=== PATIENT | female | born 1975 | race African-American/Black ===

== ENCOUNTER 2016-07-08 10:43 | Emergency (ER) | payer MEDICARE, MEDICAID ==
--- NOTE | 2016-07-08 11:13 | ER Document Report ---
ED Medical Screen (RME) - General Stated Complaint: COUGH Time seen by provider: 11:11 Mode of Arrival: Medic Information source: Patient Notes: I have greeted and performed a rapid initial assessment of this patient. A comprehensive ED assessment and evaluation of the patient, analysis of test results and completion of the medical decision making process will be conducted by additional ED providers. TRAVEL OUTSIDE OF THE [place] IN LAST 30 DAYS: No - HPI Patient complains to provider of: COUGH Onset: Yesterday Onset/Duration: Sudden Quality of pain: No pain Severity: None Pain Level: Denies Associated Symptoms: Cough (nonproductive), Rhinorrhea. denies: Fever Exacerbated by: Denies Relieved by: Denies Similar symptoms previously: No Recently seen / treated by doctor: No - Related Data Smoking: Cigarettes Frequency of alcohol use: None Drug Abuse: None Allergies/Adverse Reactions: No Known Allergies Allergy (Verified 07/08/16 11:11) Past Medical History Psychiatric Medical History: Reports: Hx Depression, Hx Schizophrenia - Immunizations Hx Diphtheria, Pertussis, Tetanus Vaccination: Yes
[2016-07-08 11:15] VITALS: BP 94/64
== END 2016-07-08 13:34 | disposition left against medical advice (07) ==
LOC: ER 10:43
DX: R05 Cough (principal); J34.89 Other specified disorders of nose and nasal sinuses; Z53.20 Procedure and treatment not carried out because of patient's decision for unspecified reasons
CPT/HCPCS: 71020; 99281

== ENCOUNTER 2016-09-09 05:08 | Emergency (ER) | payer MEDICARE, MEDICAID ==
[2016-09-09 05:19] VITALS: BP 131/87
--- NOTE | 2016-09-09 07:11 | ER Document Report ---
ED Respiratory Problem - General Chief Complaint: Nonproductive Cough Stated Complaint: COUGH Time seen by provider: 07:06 Mode of Arrival: Ambulatory Information source: Patient Notes: 40-year-old female presents to ED for cough cold congestion sore throat since yesterday. She denies any fever. She denies smoking drinking or alcohol states she sometimes smokes 1 cigarette a day. Has denies any past medical history or any surgery. States she has a family history of heart attacks blood pressure cholesterol no surgeries does not work and lives with her mother. TRAVEL OUTSIDE OF THE [place] IN LAST 30 DAYS: No - HPI Patient complains to provider of: Cough, Other - Sore throat Onset: This morning Duration: Better Initiating Event: URI, Other - Sore throat Quality of pain: Achy Severity: Mild Pain Level: 2 Context: Smoker - Minimal Cough: Nonproductive Sputum amount: None Associated symptoms: Cough, PND, Sinus pain/pressure, Sore Throat Worsened by: coughing Similar symptoms previously: Yes Recently seen / treated by doctor: Yes - Related Data Allergies/Adverse Reactions: No Known Allergies Allergy (Verified 07/08/16 11:11) Past Medical History - General Information source: Patient - Social History Smoking Status: Current Every Day Smoker Cigarette use (# per day): Yes - one cigarette a day Chew tobacco use (# tins/day): No Smoking Education Provided: Yes - less than 1 minute Frequency of alcohol use: None Drug Abuse: None Occupation: none Lives with: Parents Family History: CAD, Hyperlipidemia, Hypertension Patient has suicidal ideation: No Patient has homicidal ideation: No - Past Medical History Cardiac Medical History: Reports: None Pulmonary Medical History: Reports: None EENT Medical History: Reports: None Neurological Medical History: Reports: None Endocrine Medical History: Reports: None Renal/ Medical History: Reports: None. Denies: Hx Peritoneal Dialysis Malignancy Medical History: Reports: None GI Medical History: Reports: None Musculoskeltal Medical History: Reports None Skin Medical History: Reports None Psychiatric Medical History: Reports: Hx Depression, Hx Schizophrenia Traumatic Medical History: Reports: None Infectious Medical History: Reports: None Surgical Hx: Negative Past Surgical History: Reports: None - Immunizations Hx Diphtheria, Pertussis, Tetanus Vaccination: Yes Review of Systems - Review of Systems Constitutional: Fever, Recent illness EENT: Nose discharge, Sinus discharge, Throat pain Cardiovascular: Chest pain - With a cough Respiratory: Cough Gastrointestinal: No symptoms reported Genitourinary: No symptoms reported Female Genitourinary: No symptoms reported Musculoskeletal: No symptoms reported Skin: No symptoms reported Hematologic/Lymphatic: No symptoms reported Neurological/Psychological: No symptoms reported -: Yes All other systems reviewed and negative Physical Exam - Vital signs Vitals: Temp Pulse Resp BP Pulse Ox 98.8 F 94 18 131/87 H 98 09/09/16 05:18 09/09/16 05:18 09/09/16 05:18 09/09/16 05:18 09/09/16 05:18 Interpretation: Hypertensive - General General appearance: Appears well, Alert - HEENT Head: Normocephalic, Atraumatic Eyes: Normal Pupils: PERRL Ears: Normal External canal: Normal Tympanic membrane: Normal Sinus: Normal Nasal: Purulent discharge, Swelling Mouth/Lips: Normal Mucous membranes: Normal Pharynx: Erythema, Exudate, Post nasal drainage, Tonsillar hypertrophy Neck: Anterior cervical chain - Respiratory Respiratory status: No respiratory distress Chest status: Pain with cough Breath sounds: Nonproductive cough Chest palpation: Normal - Cardiovascular Rhythm: Regular Heart sounds: Normal auscultation Murmur: No - Abdominal Inspection: Normal Distension: No distension Bowel sounds: Normal Tenderness: Nontender Organomegaly: No organomegaly - Back Back: Normal, Nontender - Extremities General upper extremity: Normal inspection, Nontender, Normal color, Normal ROM , Normal temperature General lower extremity: Normal inspection, Nontender, Normal color, Normal ROM , Normal temperature, Normal weight bearing. No: Iza's sign - Neurological Neuro grossly intact: Yes Cognition: Normal Orientation: AAOx4 Sebastian Coma Scale Eye Opening: Spontaneous [place] Coma Scale Verbal: Oriented [place] Coma Scale Motor: Obeys Commands Sebastian Coma Scale Total: 15 Speech: Normal Motor strength normal: LUE, RUE, LLE, RLE Sensory: Normal - Psychological Associated symptoms: Normal affect, Normal mood - Skin Skin Temperature: Warm Skin Moisture: Dry Skin Color: Normal Course - Re-evaluation Re-evalutation: 09/09/16 11:38 Will treat patient's strep throat with amoxicillin and have follow-up with primary doctor. - Vital Signs Vital signs: Temp Pulse Resp BP Pulse Ox 98.3 F 92 18 131/87 H 96 09/09/16 08:10 09/09/16 08:10 09/09/16 08:10 09/09/16 05:18 09/09/16 08:10 - Diagnostic Test Radiology reviewed: Image reviewed, Reports reviewed Discharge - Discharge Clinical Impression: Strep throat Condition: Stable Disposition: HOME, SELF-CARE Additional Instructions: STREP THROAT: Your sore throat is due to the streptococcus germ (strep throat). Strep throat usually makes you feel quite ill with fever and aches, headache, swollen sore throat, and tender bumps under the angles of the jaw. Strep throat requires antibiotic treatment. Although the sore throat may go away by itself, complications such as rheumatic fever, kidney disease, or throat abscess can occur. We usually prescribe antibiotics by mouth. Be sure to take the medicine until it's gone. If you stop early, the strep may come back. If you are vomiting, are severely ill, or can't remember to take pills, we can give you an antibiotic shot. Take acetaminophen or ibuprofen for pain and fever. Sip frequent clear liquids, or use popsicles or ice chips. Anesthetic sprays or lozenges may help. Make sure the air in the room is not too dry. Avoid using decongestants or antihistamines. Call the doctor if there is no improvement in three days, or if you have difficulty breathing, increasing throat pain, high fever, rash, or frequent vomiting. PENICILLIN V K: You have been given a prescription for Penicillin VK. Your physician has determined that this is the best antibiotic for your condition. Pen VK can be taken with meals, however more of the antibiotic gets into the bloodstream if it's taken on an empty stomach. Penicillin usually has no side effects. However, allergy to penicillins is common. If you have had an allergic reaction to any drug of the penicillin family, you should never take any other penicillin. Notify your doctor at once if you develop hives, itching, swelling, faintness, or shortness of breath. STEROID MEDICATION: You have been given a medicine of the cortisone/steroid class. This medication is used to control inflammation or allergy. It is usually only given for a short period of time, until the acute process subsides. There are usually no side effects from short-term use of cortisone-like medications. Some persons feel an increased sense of well-being and are not sleepy at bedtime. Long-term use of cortisone medications is best avoided, unless required for a severe condition. If your condition does not remit, or relapses after the course of corticosteroid medication, you should consult your physician. FOLLOW-UP CARE: If you have been referred to a physician for follow-up care, call the physician s office for an appointment as you were instructed or within the next two days. If you experience worsening or a significant change in your symptoms, notify the physician immediately or return to the Emergency Department at any time for re-evaluation. Prescriptions: Amoxicillin 875 mg PO BID #20 tablet Forms: Smoking Cessation Education, Elevated Blood Pressure Referrals: CARYN BURRELL MD [Primary Care Provider] - Follow up as needed
--- NOTE | 2016-09-09 07:53 | EKG REPORT ---
SEVERITY:- NORMAL ECG - SINUS RHYTHM : Confirmed by: Renaldo Liriano MD 09-Sep-2016 07:51:58
[2016-09-09] MEDS ORDERED: DEXAMETHASONE 4 MG TABLET PO ONE (07:58)
[2016-09-09] MEDS ORDERED: AMOXICILLIN TRIHYDRATE 500 MG CAPSULE PO ONE (07:58)
== END 2016-09-09 08:10 | disposition home or self-care (01) ==
LOC: ER 05:08
DX: J02.0 Streptococcal pharyngitis (principal); R05 Cough; R07.89 Other chest pain; R09.82 Postnasal drip; J34.89 Other specified disorders of nose and nasal sinuses; R50.9 Fever, unspecified; F17.210 Nicotine dependence, cigarettes, uncomplicated; Z71.6 Tobacco abuse counseling
CPT/HCPCS: 93005; 99283; 87880; 71020; 93010; A9270 ×2

== ENCOUNTER 2017-06-29 19:17 | Emergency (ER) | payer MEDICARE, MEDICAID ==
--- NOTE | 2017-06-29 19:35 | ER Document Report ---
ED Medical Screen (RME) - General Chief Complaint: Psych Problem Stated Complaint: NOEMY ROSSI Time Seen by Provider: 06/29/17 19:32 Notes: Patient states that she feels that she is having trouble breathing. Patient does appear agitated. She was just discharged from [place]. She states she was in [place] because she has "fits". She denies suicidal or homicidal ideation. She denies any type of hallucinations. She denies any previous psychiatric diagnosis. However patient states that she cannot remember how old she has and thinks she may be 77 years old. Patient appears confused. TRAVEL OUTSIDE OF THE [place] IN LAST 30 DAYS: No - Related Data Allergies/Adverse Reactions: No Known Allergies Allergy (Verified 07/08/16 11:11) Past Medical History - Social History Chew tobacco use (# tins/day): No Frequency of alcohol use: None Drug Abuse: None Renal/ Medical History: Reports: Hx Peritoneal Dialysis Psychiatric Medical History: Reports: Hx Depression, Hx Schizophrenia - Immunizations Hx Diphtheria, Pertussis, Tetanus Vaccination: Yes Physical Exam - Vital signs Vitals: Temp Pulse Pulse Ox 97.9 F 92 100 06/29/17 19:30 06/29/17 19:30 06/29/17 19:30 Course - Vital Signs Vital signs: Temp Pulse Resp BP Pulse Ox 97.9 F 92 100 06/29/17 19:30 06/29/17 19:30 06/29/17 19:30
[2017-06-29 20:12] LABS: ABSOLUTE BASOPHILS # (AUTO) 0.1 10^3/uL (0.0-0.2); ABSOLUTE EOSINOPHILS # (AUTO) 0.2 10^3/uL (0.0-0.6); ABSOLUTE MONOCYTES (AUTO) 0.8 10^3/uL (0.1-1.4); ABSOLUTE NEUT (AUTO) 3.2 10^3/uL (1.7-8.2); BASOPHILS % (AUTO) 1.5 % (0-2); EOSINOPHILS % (AUTO) 2.2 % (0-6); HEMATOCRIT 26.4 % (36.0-47.0); LYMPHOCYTES % (AUTO) 48.2 % (13-45); MEAN CORPUSCULAR HEMOGLOBIN 15.2 pg (27.0-33.4); MEAN CORPUSCULAR HGB CONC 28.8 g/dL (32.0-36.0); MONOCYTES % (AUTO) 9.1 % (3-13); PLATELET COUNT 250 10^3/uL (150-450); RED BLOOD COUNT 4.99 10^6/uL (3.72-5.28); RED CELL DISTRIBUTION WIDTH 22.1 % (11.5-14.0); TOTAL CELLS COUNTED % (AUTO) 100 %; WHITE BLOOD COUNT 8.3 10^3/uL (4.0-10.5)
[2017-06-29 20:14] LABS: APPEARANCE,URINE SLIGHTLY-CLOUDY; BILIRUBIN,URINE NEGATIVE (NEGATIVE); COLOR,URINE YELLOW; GLUCOSE, URINE NEGATIVE (NEGATIVE); KETONES,URINE NEGATIVE (NEGATIVE); LEUKOCYTE ESTERASE,URINE NEGATIVE (NEGATIVE); NITRITE,URINE NEGATIVE (NEGATIVE); PROTEIN,URINE NEGATIVE (NEGATIVE); URINE SPECIFIC GRAVITY 1.016
[2017-06-29 20:29] LABS: URINE AMPHETAMINES SCREEN NEGATIVE; URINE BARBITURATES SCREEN NEGATIVE; URINE BENZODIAZEPINES SCREEN NEGATIVE; URINE COCAINE SCREEN NEGATIVE; URINE MARIJUANA (THC) SCREEN NEGATIVE; URINE METHADONE SCREEN NEGATIVE; URINE PHENCYCLIDINE SCREEN NEGATIVE
[2017-06-29 20:30] LABS: ALANINE AMINOTRANSFERASE 25 U/L (9-52); ALBUMIN 4.4 g/dL (3.5-5.0); ALKALINE PHOSPHATASE 68 U/L (38-126); ANION GAP 15 (5-19); ASPARTATE AMINO TRANSFERASE 14 U/L (14-36); BILIRUBIN,DIRECT 0.3 mg/dL (0.0-0.4); BILIRUBIN,TOTAL 0.9 mg/dL (0.2-1.3); BLOOD UREA NITROGEN 7 mg/dL (7-20); CALCIUM 9.5 mg/dL (8.4-10.2); CARBON DIOXIDE 25 mmol/L (22-30); CHLORIDE 104 mmol/L (98-107); GLUCOSE 118 mg/dL (75-110); POTASSIUM 3.4 mmol/L (3.6-5.0); SODIUM 143.5 mmol/L (137-145); TOTAL PROTEIN 7.6 g/dL (6.3-8.2)
[2017-06-29 20:34] LABS: ACETAMINOPHEN < 10 ug/mL (10-30); ALCOHOL < 10 mg/dL (NONE DETECTED); SALICYLATE < 1.0 mg/dL (2.0-20.0)
[2017-06-29 20:35] LABS: MEAN CORPUSCULAR VOLUME 53 fl (80-97)
[2017-06-29 20:36] LABS: HEMOGLOBIN 7.6 g/dL (12.0-15.5)
[2017-06-29 20:43] LABS: POLYCHROMASIA SLIGHT
[2017-06-29 20:44] LABS: ANISOCYTOSIS 3+; HYPOCHROMASIA SLIGHT; OVALOCYTES SLIGHT; PLATELET COMMENT ADEQUATE; PLATELET LARGE PRESENT; POIKILOCYTOSIS 1+; TARGET CELLS 2+; TEAR DROP CELLS SLIGHT
--- NOTE | 2017-06-29 21:57 | RADIOLOGY REPORT (SQ) ---
EXAM DESCRIPTION: CHEST PA/LAT COMPLETED DATE/TIME: 06/29/2017 9:44 pm REASON FOR STUDY: shortness of breath COMPARISON: None. EXAM PARAMETERS: NUMBER OF VIEWS: two views TECHNIQUE: Digital Frontal and Lateral radiographic views of the chest acquired. RADIATION DOSE: NA LIMITATIONS: none FINDINGS: LUNGS AND PLEURA: No acute opacities, masses or pneumothorax. No pleural effusion. MEDIASTINUM AND HILAR STRUCTURES: No masses or contour abnormalities. HEART AND VASCULAR STRUCTURES: Stable cardiomegaly and pulmonary vascularity. BONES: No acute findings. HARDWARE: None in the chest. OTHER: No other significant finding. IMPRESSION: No acute findings.Stable cardiomegaly and pulmonary vascularity. TECHNICAL DOCUMENTATION: JOB ID: [id number] [place]-72 2010 [employer]- All Rights Reserved
--- NOTE | 2017-06-29 22:49 | ER Document Report ---
ED General - General Chief Complaint: Psych Problem Stated Complaint: NOEMY ROSSI Time Seen by Provider: 06/29/17 19:32 Mode of Arrival: Ambulatory Information source: Patient TRAVEL OUTSIDE OF THE [place] IN LAST 30 DAYS: No - HPI Notes: 41-year-old lady presented from [facility] for evaluation of shortness of breath. Patient was scared that she is unable to catch her breath. Her symptoms started approximately a few hours prior to arrival. Patient denies any fevers, chills, prior history of asthma, nausea or vomiting, belly pain, vaginal discharge or bleeding. Patient was admitted to [facility] for inability to cope. At present time patient lives with her mother. Patient has no signs of distress. Patient denies any suicidal homicidal ideations. - Related Data Allergies/Adverse Reactions: No Known Allergies Allergy (Verified 07/08/16 11:11) Past Medical History - Social History Smoking Status: Current Every Day Smoker Chew tobacco use (# tins/day): No Frequency of alcohol use: None Drug Abuse: None Family History: CAD, Hyperlipidemia, Hypertension Patient has suicidal ideation: No Patient has homicidal ideation: No Renal/ Medical History: Reports: Hx Peritoneal Dialysis Psychiatric Medical History: Reports: Hx Depression, Hx Schizophrenia - Immunizations Hx Diphtheria, Pertussis, Tetanus Vaccination: Yes Review of Systems - Review of Systems Notes: REVIEW OF SYSTEMS: CONSTITUTIONAL: -fevers, -chills EENT: -eye pain, -difficulty swallowing, -nasal congestion CARDIOVASCULAR: -chest pain, -syncope. RESPIRATORY: -cough, +SOB GASTROINTESTINAL: -abdominal pain, -nausea, -vomiting, -diarrhea GENITOURINARY: -dysuria, -hematuria MUSCULOSKELETAL: -back pain, -neck pain SKIN: -rash or skin lesions. HEMATOLOGIC: -easy bruising or bleeding. LYMPHATIC: -swollen, enlarged glands. NEUROLOGICAL: -altered mental status or loss of consciousness, -headache, - neurologic symptoms PSYCHIATRIC: -anxiety, -depression. ALL OTHER SYSTEMS REVIEWED AND NEGATIVE. Physical Exam - Vital signs Vitals: Temp Pulse Pulse Ox 97.9 F 92 100 06/29/17 19:30 06/29/17 19:30 06/29/17 19:30 - Notes Notes: Reviewed vital signs and nursing note as charted by RN. CONSTITUTIONAL: Alert and oriented and responds appropriately to questions HEAD: Normocephalic; atraumatic EYES: PERRL; Conjunctivae clear, sclerae non-icteric ENT: normal nose; no rhinorrhea; moist mucous membranes; pharynx without lesions noted NECK: Supple without meningismus; non-tender; no cervical lymphadenopathy, no masses CARD: Regular rate and rhythm; no murmurs, no clicks, no rubs, no gallops; symmetric distal pulses RESP: Normal chest excursion without splinting or tachypnea; breath sounds clear and equal bilaterally ABD/GI: Normal bowel sounds; non-distended; soft, BACK: The back appears normal and is non-tender to palpation EXT: Normal ROM in all joints; non-tender to palpation; no cyanosis, no effusions, no edema SKIN: Pale skin as well as conjunctiva d NEURO: .Cranial nerves 3-12 intact. Motor strength 5/5 bilaterally. Sensation intact to touch bilaterally. No pronator drift. Finger to nose intact bilaterally PSYCH: Appears anxious, denies any suicidal or homicidal ideations Course - Re-evaluation Re-evalutation: 41-year-old here for evaluation of shortness of breath Her shortness of breath is improving Differential diagnoses includes pneumonia, pneumothorax, PE, electrolyte abnormalities, anxiety, dehydration, drug abuse, depression, PE We will obtain basic lab work including CBC, BMP, urinalysis, urine drug screen Chest x-ray, EKG D-dimer Tylenol level, salicylate level, alcohol level Reassess patient 06/29/17 22:50 Patient is doing well, chest x-ray with no acute cardiopulmonary process Patient does have notable anemia, microcytic in distribution Patient does not have any active bleeding at present time No need for acute transfusion We will start patient on iron as well as stool softeners Follow-up with primary care physician - Vital Signs Vital signs: Temp Pulse Resp BP Pulse Ox 97.9 F 92 100 06/29/17 19:30 06/29/17 19:30 06/29/17 19:30 - Laboratory Result Diagrams: 06/29/17 19:50 06/29/17 19:50 Laboratory results interpreted by me: 06/29/17 06/29/17 06/29/17 19:50 19:50 19:50 Hgb 7.6 L Hct 26.4 L MCV 53 L MCH 15.2 L MCHC 28.8 L RDW 22.1 H Seg Neutrophils % 39.0 L Lymphocytes % 48.2 H Potassium 3.4 L Glucose 118 H Urine Urobilinogen 4.0 H Salicylates < 1.0 L Acetaminophen < 10 L - EKG Interpretation by Me Additional EKG results interpreted by me: 06/29/17 22:54 EKG interpretation Normal sinus rhythm, rate 84 Normal OH interval, narrow QRS, QTC within normal limits No ST elevations or depressions in any of the leads, no significant changes compared to prior EKG performed on 09 Sep 2016 Discharge - Discharge Clinical Impression: Anemia, Shortness of breath Condition: Stable Disposition: HOME, SELF-CARE Instructions: Anemia, Iron Deficiency ([facility]) Additional Instructions: You have been diagnosed with anemia today Please take your iron prescription as well as stool softeners with it to avoid constipation Please follow-up with primary care physician, information provided Come back if there worsening fevers, chills, shortness of breath or chest pain Prescriptions: Docusate Sodium 100 mg PO DAILY 30 Days #30 capsule Ferrous Sulfate 325 mg PO TID #120 tablet Referrals: SHASHI JOINER MD [COMMUNITY BASED STAFF] - Follow up in 1 week
[2017-06-29 23:15] VITALS: BP 105/71
--- NOTE | 2017-06-30 07:45 | EKG REPORT ---
SEVERITY:- NORMAL ECG - SINUS RHYTHM : Confirmed by: Renaldo Liriano MD 30-Jun-2017 07:44:46
[2017-06-30 11:54] LABS: PATH REVIEW PATHOLOGIST REVIEWED
== END 2017-06-29 23:18 | disposition home or self-care (01) ==
LOC: ER 19:17
DX: D64.9 Anemia, unspecified (principal); R06.02 Shortness of breath; F17.200 Nicotine dependence, unspecified, uncomplicated
CPT/HCPCS: 36415; 71046; 80053; 80307; 81001; 81025; 85025; 85379; 93005; 93010; 99285

== ENCOUNTER 2017-10-05 00:21 | Emergency (ER) | payer MEDICARE, MEDICAID ==
[2017-10-05] MEDS ORDERED: IBUPROFEN 600 MG TABLET PO ONE (01:51)
[2017-10-05] MEDS ORDERED: AMOXICILLIN TRIHYDRATE 500 MG CAPSULE PO ONE (01:51)
[2017-10-05] MEDS ORDERED: LIDOCAINE 2% JELLY 5 ML TUBE TOP ONE (01:51)
--- NOTE | 2017-10-05 01:55 | ER Document Report ---
ED General - General Chief Complaint: R ear pain , jaw pain Stated Complaint: EAR AND THROAT PAIN Time Seen by Provider: 10/05/17 01:24 Notes: Patient is a 41-year-old female with medical history as recorded who presents with 3 days of progressively worsening right ear pain. She describes as a throbbing, aching, dull pain to the right ear head in the right jaw. She states that she has not tried anything to improve the pain. Moving her jaw or chewing worsens the pain. She states it feels like when she has had ear infections in the past. She denies any associated fever or constitutional symptoms but does note an associated sore throat. She has not seen her primary doctor regarding today's concerns. She denies any headache, neck pain, or altered mental status. No focal weakness or numbness. TRAVEL OUTSIDE OF THE [place] IN LAST 30 DAYS: No - Related Data Allergies/Adverse Reactions: No Known Allergies Allergy (Verified 07/08/16 11:11) Past Medical History - General Information source: Patient - Social History Smoking Status: Current Every Day Smoker Chew tobacco use (# tins/day): No Frequency of alcohol use: None Drug Abuse: None Lives with: Family Family History: CAD, Hyperlipidemia, Hypertension Patient has suicidal ideation: No Patient has homicidal ideation: No Renal/ Medical History: Denies: Hx Peritoneal Dialysis Psychiatric Medical History: Reports: Hx Depression, Hx Schizophrenia - Immunizations Hx Diphtheria, Pertussis, Tetanus Vaccination: Yes Review of Systems - Review of Systems Notes: Constitutional: Negative for fever. HENT: Positive for right ear pain and sore throat Eyes: Negative for visual changes. Cardiovascular: Negative for chest pain. Respiratory: Negative for shortness of breath. Gastrointestinal: Negative for abdominal pain, vomiting or diarrhea. Genitourinary: Negative for dysuria. Musculoskeletal: Negative for back pain. Skin: Negative for rash. Neurological: Negative for headaches, weakness or numbness. 10 point ROS negative except as marked above and in HPI. Physical Exam - Vital signs Vitals: Temp Pulse Resp BP Pulse Ox 98.4 F 85 16 135/84 H 100 10/05/17 00:31 10/05/17 00:31 10/05/17 00:31 10/05/17 00:31 10/05/17 00:31 Interpretation: Normal Notes: PHYSICAL EXAMINATION: GENERAL: Well-appearing, well-nourished and in no acute distress. HEAD: Atraumatic, normocephalic. EYES: Pupils equal round and reactive to light, extraocular movements intact, sclera anicteric, conjunctiva are normal. ENT: nares patent, oropharynx clear without exudates. Right TM with a purulent effusion, erythema and mild bulging. Left TM is clear. No pain over the mastoid bilaterally. Moist mucous membranes. NECK: Normal range of motion, supple without lymphadenopathy LUNGS: Breath sounds clear to auscultation bilaterally and equal. No wheezes rales or rhonchi. HEART: Regular rate and rhythm without murmurs ABDOMEN: Soft, nontender, normoactive bowel sounds. No guarding, no rebound. No masses appreciated. EXTREMITIES: Normal range of motion, no pitting or edema. No cyanosis. NEUROLOGICAL: No focal neurological deficits. Moves all extremities spontaneously and on command. PSYCH: Normal mood, normal affect. SKIN: Warm, Dry, normal turgor, no rashes or lesions noted. Course - Re-evaluation Re-evalutation: 10/05/17 01:51 Presentation is most consistent with an acute otitis media on the right side. Clinical history as well as exam is most consistent with this diagnosis. Based on history and examination do not suspect an acute meningitis, encephalitis, peritonsillar abscess, or retropharyngeal abscess. Child is otherwise well in appearance, no acute distress. Vitals otherwise within normal limits. The patient will be started on amoxicillin twice a day for 10 days. At this time will discharge with return precautions and follow-up recommendations. Verbal discharge instructions given a the bedside to the parents and opportunity for questions given. Medication warnings reviewed. Parents are in agreement with this plan and has verbalized understanding of return precautions and the need for primary care follow-up in the next 24-72 hours. - Vital Signs Vital signs: Temp Pulse Resp BP Pulse Ox 98.1 F 70 18 107/75 100 10/05/17 02:06 10/05/17 02:06 10/05/17 02:06 10/05/17 02:06 10/05/17 02:06 Discharge - Discharge Clinical Impression: Right otitis media Qualifiers: Otitis media type: suppurative Chronicity: acute Recurrence: not specified as recurrent Spontaneous tympanic membrane rupture: without spontaneous rupture Qualified Code(s): H66.001 - Acute suppurative otitis media without spontaneous rupture of ear drum, right ear Condition: Good Disposition: HOME, SELF-CARE Additional Instructions: Your child has been diagnosed as having an ear infection. Please give them the amoxicillin twice daily for 10 days. Follow-up with your electronic funds transfer coordinator as needed. Return if your child becomes lethargic, has persistent vomiting, becomes confused, has facial swelling, worsening pain despite antibiotics, or any other symptoms that are concerning to you. You should give your child ibuprofen or Tylenol as needed for discomfort. Prescriptions: Amoxicillin 1 tab PO TID #30 tab
[2017-10-05 02:07] VITALS: BP 107/75
[2017-10-05] MEDS ORDERED: LIDOCAINE 2% VISCOUS SOLN 20 ML UDCUP PO ONE (02:40)
== END 2017-10-05 02:46 | disposition home or self-care (01) ==
LOC: ER 00:21
DX: H66.001 Acute suppurative otitis media without spontaneous rupture of ear drum, right ear (principal); H92.01 Otalgia, right ear; R68.84 Jaw pain; F17.200 Nicotine dependence, unspecified, uncomplicated
CPT/HCPCS: 99282; A9270 ×2; J3490

== ENCOUNTER 2018-10-24 18:18 | Emergency (ER) | payer MEDICARE, MEDICAID ==
[2018-10-24 18:33] VITALS: BP 151/100
--- NOTE | 2018-10-24 18:53 | ER Document Report ---
ED Medical Screen (RME) - General Chief Complaint: Psych Problem Stated Complaint: PSYCH Time Seen by Provider: 10/24/18 18:45 Mode of Arrival: Ambulatory Information source: Patient Notes: Patient presents to the emergency department by herself but reports the police brought her here. Patient is found sitting in the waiting room eating toilet paper. Patient is pleasant, calm but observed trying to chew off her arm band. Patient seems confused about timeline and events. Patient reports she has bipolar schizophrenia is not taking meds. Her mother is also patient in the main ED. I have greeted and performed a rapid initial assessment of this patient. A comprehensive ED assessment and evaluation of the patient, analysis of test results and completion of the medical decision making process will be conducted by additional ED providers. Dictation of this chart was performed using voice recognition software; therefore, there may be some unintended grammatical errors. TRAVEL OUTSIDE OF THE [place] IN LAST 30 DAYS: No - Related Data Allergies/Adverse Reactions: No Known Allergies Allergy (Verified 10/24/18 18:24) Past Medical History Renal/ Medical History: Denies: Hx Peritoneal Dialysis Psychiatric Medical History: Reports: Hx Bipolar Disorder, Hx Depression, Hx Schizophrenia - Immunizations Hx Diphtheria, Pertussis, Tetanus Vaccination: Yes Physical Exam - Vital signs Vitals: Temp Pulse Resp BP Pulse Ox 97.3 F 77 16 151/100 H 99 10/24/18 18:32 10/24/18 18:32 10/24/18 18:32 10/24/18 18:32 10/24/18 18:32 Course - Vital Signs Vital signs: Temp Pulse Resp BP Pulse Ox 97.3 F 77 16 151/100 H 99 10/24/18 18:32 10/24/18 18:32 10/24/18 18:32 10/24/18 18:32 10/24/18 18:32
[2018-10-24 19:10] LABS: ABSOLUTE EOSINOPHILS # (AUTO) 0.3 10^3/uL (0.0-0.6); ABSOLUTE LYMPHOCYTES (AUTO) 3.2 10^3/uL (0.5-4.7); ABSOLUTE MONOCYTES (AUTO) 0.7 10^3/uL (0.1-1.4); HEMOGLOBIN 11.7 g/dL (12.0-15.5); RED BLOOD COUNT 4.48 10^6/uL (3.72-5.28); TOTAL CELLS COUNTED % (AUTO) 100 %
[2018-10-24 19:14] LABS: APPEARANCE,URINE CLEAR; BASOPHILS % (AUTO) 0.4 % (0-2); BILIRUBIN,URINE NEGATIVE (NEGATIVE); COLOR,URINE YELLOW; GLUCOSE, URINE NEGATIVE (NEGATIVE); HEMATOCRIT 34.4 % (36.0-47.0); KETONES,URINE NEGATIVE (NEGATIVE); LEUKOCYTE ESTERASE,URINE NEGATIVE (NEGATIVE); LYMPHOCYTES % (AUTO) 44.5 % (13-45); MEAN CORPUSCULAR HEMOGLOBIN 26.1 pg (27.0-33.4); MEAN CORPUSCULAR HGB CONC 33.9 g/dL (32.0-36.0); MEAN CORPUSCULAR VOLUME 77 fl (80-97); MONOCYTES % (AUTO) 9.4 % (3-13); NITRITE,URINE NEGATIVE (NEGATIVE); PLATELET COUNT 233 10^3/uL (150-450); PROTEIN,URINE NEGATIVE (NEGATIVE); RED CELL DISTRIBUTION WIDTH 17.6 % (11.5-14.0); SEGMENTED NEUTROPHILS % (AUTO) 41.7 % (42-78); URINE SPECIFIC GRAVITY 1.018; UROBILINOGEN,URINE NEGATIVE mg/dL (<2.0); WHITE BLOOD COUNT 7.1 10^3/uL (4.0-10.5)
[2018-10-24 19:29] LABS: URINE AMPHETAMINES SCREEN NEGATIVE; URINE BARBITURATES SCREEN NEGATIVE; URINE BENZODIAZEPINES SCREEN NEGATIVE; URINE COCAINE SCREEN NEGATIVE; URINE MARIJUANA (THC) SCREEN NEGATIVE; URINE METHADONE SCREEN NEGATIVE; URINE PHENCYCLIDINE SCREEN NEGATIVE
[2018-10-24 19:34] LABS: ALANINE AMINOTRANSFERASE 17 U/L (9-52); ALBUMIN 4.2 g/dL (3.5-5.0); ALKALINE PHOSPHATASE 72 U/L (38-126); ANION GAP 7 (5-19); ASPARTATE AMINO TRANSFERASE 22 U/L (14-36); BILIRUBIN,DIRECT 0.2 mg/dL (0.0-0.4); BILIRUBIN,TOTAL 0.7 mg/dL (0.2-1.3); BLOOD UREA NITROGEN 11 mg/dL (7-20); CALCIUM 9.5 mg/dL (8.4-10.2); CARBON DIOXIDE 30 mmol/L (22-30); CHLORIDE 102 mmol/L (98-107); GLUCOSE 94 mg/dL (75-110); POTASSIUM 3.9 mmol/L (3.6-5.0); SODIUM 139.2 mmol/L (137-145); TOTAL PROTEIN 7.7 g/dL (6.3-8.2)
[2018-10-24 19:38] LABS: ACETAMINOPHEN < 10 ug/mL (10-30); ALCOHOL < 10 mg/dL (NONE DETECTED); SALICYLATE < 1.0 mg/dL (2.0-20.0)
--- NOTE | 2018-10-24 21:12 | ER Document Report ---
ED General - General Chief Complaint: Psych Problem Stated Complaint: PSYCH Time Seen by Provider: 10/24/18 18:45 Primary Care Provider: [facility] U[facility] [place] [NO LOCAL MD] - Follow up as needed Mode of Arrival: Ambulatory TRAVEL OUTSIDE OF THE [place] IN LAST 30 DAYS: No - HPI Notes: Patient is a 42-year-old female with a history of schizophrenia who presents to the emergency department for evaluation. Evidently she was sitting in the waiting room for some time, then signed herself in. She had stated at triage that the police had brought her. She really could not name any complaints. On further questioning, and when family is present, I find out that her mother is here in the department being evaluated. She came the ambulance with her. She lives with her at this time. She denies any suicidal or homicidal ideas nation. She does not take any medications for her schizophrenia, is not interested in doing so. Denies any pain. - Related Data Allergies/Adverse Reactions: No Known Allergies Allergy (Verified 10/24/18 18:24) Past Medical History - General Information source: Patient - Social History Smoking Status: Unknown if Ever Smoked Family History: CAD, Hyperlipidemia, Hypertension Patient has suicidal ideation: No Patient has homicidal ideation: No Renal/ Medical History: Denies: Hx Peritoneal Dialysis Psychiatric Medical History: Reports: Hx Bipolar Disorder, Hx Depression, Hx Schizophrenia - Immunizations Hx Diphtheria, Pertussis, Tetanus Vaccination: Yes Review of Systems - Review of Systems Constitutional: No symptoms reported EENT: No symptoms reported Cardiovascular: No symptoms reported Respiratory: No symptoms reported Gastrointestinal: No symptoms reported Genitourinary: No symptoms reported Musculoskeletal: No symptoms reported Skin: No symptoms reported Neurological/Psychological: No symptoms reported Physical Exam - Vital signs Vitals: Temp Pulse Resp BP Pulse Ox 97.3 F 77 16 151/100 H 99 10/24/18 18:32 10/24/18 18:32 10/24/18 18:32 10/24/18 18:32 10/24/18 18:32 - Notes Notes: Vital signs reviewed, please refer to chart. Head is normocephalic, atraumatic. Pupils equal round, reactive to light. Neck is supple without meningismus. Heart is regular rate and rhythm. Lungs are clear to auscultation bilaterally. Abdomen is soft, nontender, normoactive bowel sounds throughout. Extremities without cyanosis, clubbing. Posterior calves are nontender. Peripheral pulses are equal. Skin is warm and dry. Patient is awake, alert, neurological exam is nonfocal. Patient is calm with a very timid affect. She is pleasant and cooperative with examiner Course - Re-evaluation Re-evalutation: 10/24/18 21:21 Patient presented to the emergency department for evaluation. She lives at home with her mother, siblings. She came into the emergency department in the ambulance with her mother, was left behind in the waiting room slightly confused. She is here now in the room with her [id number]. I spoke at [facility] with the patient's mother as well as her sister. This was done with the patient's permission. They do describe her behavior as her baseline. She is not on any current medications. They do feel entirely comfortable taking care of the patient. She does not seem to pose any acute or significant risk to herself or to anyone else at this time. She is encouraged to follow-up with primary care. Patient was unable to name a primary care provider, so referral was made to [facility]. She is to return to the ED with worsening or new concerning symptoms of any sort. - Vital Signs Vital signs: Temp Pulse Resp BP Pulse Ox 97.3 F 77 16 151/100 H 99 10/24/18 18:32 10/24/18 18:32 10/24/18 18:32 10/24/18 18:32 10/24/18 18:32 - Laboratory Result Diagrams: 10/24/18 19:00 10/24/18 19:00 Laboratory results interpreted by me: 10/24/18 10/24/18 19:00 19:00 Hgb 11.7 L Hct 34.4 L MCV 77 L MCH 26.1 L RDW 17.6 H Seg Neutrophils % 41.7 L Salicylates < 1.0 L Acetaminophen < 10 L - EKG Interpretation by Me Additional EKG results interpreted by me: 10/24/18 21:20 Sinus mechanism with a rate of 71 bpm. Normal axis and intervals, no acute ST changes concerning for ischemia or infarction. Discharge - Discharge Clinical Impression: Schizophrenia Qualifiers: Schizophrenia type: unspecified Qualified Code(s): F20.9 - Schizophrenia, unspecified Condition: Stable Disposition: HOME, SELF-CARE Additional Instructions: Follow-up with your doctor this week. Return to the ED with worsening or new concerning symptoms. Referrals: [facility] [NO LOCAL MD] - Follow up as needed
--- NOTE | 2018-10-24 22:01 | EKG REPORT ---
SEVERITY:- NORMAL ECG - SINUS RHYTHM : Confirmed by: Renaldo Liriano MD 24-Oct-2018 22:00:21
== END 2018-10-24 21:25 | disposition home or self-care (01) ==
LOC: ER 18:18
DX: F20.9 Schizophrenia, unspecified (principal)
CPT/HCPCS: 36415; 80053; 80307; 81001; 84703; 85025; 93005; 93010; 99285

== ENCOUNTER 2018-11-22 15:09 | Emergency (ER) | payer MEDICARE, MEDICAID ==
[2018-11-22] MEDS ORDERED: ACETAMINOPHEN 325 MG TABLET PO ONE (17:17)
[2018-11-22] MEDS ORDERED: CLINDAMYCIN 900 MG/D5W RTU 900 MG/50 ML RTUPB IV ONE (17:17)
--- NOTE | 2018-11-22 17:19 | ER Document Report ---
ED Medical Screen (RME) - General Chief Complaint: Toothache Stated Complaint: TOOTH PAIN, FACIAL SWELLING Time Seen by Provider: 11/22/18 17:06 Mode of Arrival: Ambulatory Information source: Patient Notes: 43-year-old female presented to ED for dental infection to the left side of her face with swelling to the left side of her face. She states that she had a broken tooth for a number of years. She states the pain got bad 2 days ago. Patient states she does not know her medical history. She states she lives with her brothers who take care of her. I did look in her hospital records and she does not have a allergy to clindamycin does not have any kidney failure problems. Will treat with IV clindamycin after getting CBC chemistry. I have greeted and performed a rapid initial assessment of this patient. A comprehensive ED assessment and evaluation of the patient, analysis of test results and completion of medical decision making process will be conducted by an additional ED providers. Dictation of this chart was performed using voice recognition software; therefore, there may be some unintended grammatical errors. TRAVEL OUTSIDE OF THE U.S. IN LAST 30 DAYS: No - Related Data Allergies/Adverse Reactions: No Known Allergies Allergy (Verified 11/22/18 15:13) Past Medical History Renal/ Medical History: Denies: Hx Peritoneal Dialysis Psychiatric Medical History: Reports: Hx Bipolar Disorder, Hx Depression, Hx Schizophrenia - Immunizations Hx Diphtheria, Pertussis, Tetanus Vaccination: Yes Physical Exam - Vital signs Vitals: Temp Pulse Resp BP Pulse Ox 98.2 F 102 H 20 134/96 H 98 11/22/18 16:02 11/22/18 16:02 11/22/18 16:02 11/22/18 16:02 11/22/18 16:02 Course - Vital Signs Vital signs: Temp Pulse Resp BP Pulse Ox 98.2 F 102 H 20 128/82 H 98 11/22/18 16:02 11/22/18 17:12 11/22/18 16:02 11/22/18 17:12 11/22/18 16:02
[2018-11-22 19:12] LABS: ABSOLUTE BASOPHILS # (AUTO) 0.1 10^3/uL (0.0-0.2); ABSOLUTE LYMPHOCYTES (AUTO) 2.2 10^3/uL (0.5-4.7); ABSOLUTE MONOCYTES (AUTO) 1.1 10^3/uL (0.1-1.4); ABSOLUTE NEUT (AUTO) 8.5 10^3/uL (1.7-8.2); EOSINOPHILS % (AUTO) 0.2 % (0-6); HEMATOCRIT 37.4 % (36.0-47.0); HEMOGLOBIN 12.5 g/dL (12.0-15.5); LYMPHOCYTES % (AUTO) 18.9 % (13-45); MEAN CORPUSCULAR HEMOGLOBIN 25.8 pg (27.0-33.4); MEAN CORPUSCULAR HGB CONC 33.3 g/dL (32.0-36.0); MEAN CORPUSCULAR VOLUME 78 fl (80-97); PLATELET COUNT 205 10^3/uL (150-450); RED BLOOD COUNT 4.83 10^6/uL (3.72-5.28); RED CELL DISTRIBUTION WIDTH 17.1 % (11.5-14.0); SEGMENTED NEUTROPHILS % (AUTO) 70.9 % (42-78); TOTAL CELLS COUNTED % (AUTO) 100 %; WHITE BLOOD COUNT 11.9 10^3/uL (4.0-10.5)
[2018-11-22] MEDS ORDERED: KETOROLAC TROMETHAMINE INJ/PF 30 MG/1 ML SDV IV ONE (19:45)
--- NOTE | 2018-11-22 19:53 | ER Document Report ---
ED General - General Chief Complaint: Toothache Stated Complaint: TOOTH PAIN, FACIAL SWELLING Time Seen by Provider: 11/22/18 17:06 Mode of Arrival: Ambulatory TRAVEL OUTSIDE OF THE [place] IN LAST 30 DAYS: No - HPI Notes: Patient is a 43-year-old female presents to the emergency department for her evaluation. She has swelling in the left side of her face. She actually is to mandibular teeth on the left that need to be evaluated by a dentist. She states that been decayed severely for the some time, but started hurting on Thursday. She developed swelling at that time as well. Her sister is now helping her obtain a dentist. She does have Medicare coverage. She denies any fevers or chills. No difficulty swallowing or breathing. No swelling under her tongue. Currently puts her pain at a 5 out of 5. - Related Data Allergies/Adverse Reactions: No Known Allergies Allergy (Verified 11/22/18 15:13) Past Medical History - General Information source: Patient - Social History Smoking Status: Never Smoker Family History: CAD, Hyperlipidemia, Hypertension Patient has suicidal ideation: No Patient has homicidal ideation: No Renal/ Medical History: Denies: Hx Peritoneal Dialysis Psychiatric Medical History: Reports: Hx Bipolar Disorder, Hx Depression, Hx Schizophrenia - Immunizations Hx Diphtheria, Pertussis, Tetanus Vaccination: Yes Review of Systems - Review of Systems Constitutional: No symptoms reported EENT: See HPI Cardiovascular: No symptoms reported Respiratory: No symptoms reported Gastrointestinal: No symptoms reported Genitourinary: No symptoms reported Musculoskeletal: No symptoms reported Skin: No symptoms reported Neurological/Psychological: No symptoms reported Physical Exam - Vital signs Vitals: Temp Pulse Resp BP Pulse Ox 98.2 F 102 H 20 134/96 H 98 11/22/18 16:02 11/22/18 16:02 11/22/18 16:02 11/22/18 16:02 11/22/18 16:02 - Notes Notes: Vital signs reviewed, please refer to chart. Head is normocephalic, atraumatic. Pupils equal round, reactive to light. Patient has a moderate amount of swelling about the left face without any associated erythema. She does have some very mild induration but no appreciable fluctuance. No trismus noted. Examination of the left mandible yields her first and third mandibular molars on the left to be decayed to the gumline. She is a moderate amount of gingival edema noted. No submandibular nodes are palpable, no sublingual swelling. Neck is supple without meningismus. Heart is regular rate and rhythm. Lungs are clear to auscultation bilaterally. Abdomen is soft, nontender, normoactive bowel sounds throughout. Extremities without cyanosis, clubbing. Posterior calves are nontender. Peripheral pulses are equal. Skin is warm and dry. Patient is awake, alert, neurological exam is nonfocal. Course - Re-evaluation Re-evalutation: 11/22/18 19:50 Patient is a 43-year-old female who presents the emergency department for evaluation. She is nontoxic in appearance. She does clearly have dental infection. She is given IV clindamycin, blood work is obtained through triage. She is a mild leukocytosis. I am not concerned about her chemistries currently, she has no significant medical problems and is not been taking any medications regularly. I will go ahead and start her on clindamycin. She is given dental referrals. She is to return to the ED with worsening or new concerning symptoms of any sort. - Vital Signs Vital signs: Temp Pulse Resp BP Pulse Ox 98.2 F 102 H 20 128/82 H 98 11/22/18 16:02 11/22/18 17:12 11/22/18 16:02 11/22/18 17:12 11/22/18 16:02 - Laboratory Result Diagrams: 11/22/18 18:45 11/22/18 18:45 Laboratory results interpreted by me: 11/22/18 18:45 WBC 11.9 H MCV 78 L MCH 25.8 L RDW 17.1 H Absolute Neutrophils 8.5 H Discharge - Discharge Clinical Impression: Dental decay, Dental abscess Condition: Stable Disposition: HOME, SELF-CARE Instructions: Clindamycin ([facility]), Toothache ([facility]) Additional Instructions: You need to see a dentist as soon as possible. Take all the antibiotic as prescribed until gone. If you develop difficulty breathing or swallowing, your swelling is worse, or you develop any new or concerning symptoms, return immediately to the emergency department for reevaluation.
[2018-11-22 20:25] VITALS: BP 130/92
== END 2018-11-22 20:26 | disposition home or self-care (01) ==
LOC: ER 15:09
DX: K02.9 Dental caries, unspecified (principal); K04.7 Periapical abscess without sinus; K08.89 Other specified disorders of teeth and supporting structures; R22.0 Localized swelling, mass and lump, head
CPT/HCPCS: 99283; 96375; 96365; 36415; 84703; 85025; A9270; J3490; J1885

== ENCOUNTER 2020-03-17 00:33 | Emergency (ER) | payer MEDICARE, MEDICAID ==
[2020-03-17 01:17] VITALS: BP 117/50
--- NOTE | 2020-03-17 01:43 | ER Document Report ---
ED Medical Screen (RME) - General Chief Complaint: Cold Symptoms Stated Complaint: COUGH/CONGESTION/SHORTNESS OF BREATH Time Seen by Provider: 03/17/20 01:20 TRAVEL OUTSIDE OF THE [place] IN LAST 30 DAYS: No - HPI Notes: 03/17/20 01:41 44-year-old female to the emergency department with complaints of cough, chest congestion, chest pain, upper abdominal discomfort, "indigestion, for the past 4 to 5 days. She states that she thinks she may have been running a fever at home but cannot know for sure since she does not have a thermometer. She initially states that she has been feeling short of breath but then states that she does not feel short of breath. She cannot give a good history as to if she has been exposed to anyone with coronavirus. On brief medical screening exam in triage, patient has a flat affect and has difficult to get history from. She has a dry hacking cough. I performed a brief medical screening exam on the patient determined that the patient needs further evaluation and management by main side provider. I have placed initial orders to help expedite care. - Related Data Allergies/Adverse Reactions: No Known Allergies Allergy (Verified 11/22/18 15:13) Past Medical History Renal/ Medical History: Denies: Hx Peritoneal Dialysis Psychiatric Medical History: Reports: Hx Bipolar Disorder, Hx Depression, Hx Schizophrenia - Immunizations Hx Diphtheria, Pertussis, Tetanus Vaccination: Yes Physical Exam - Vital signs Vitals: Temp Pulse Resp BP Pulse Ox 99.4 F 93 22 H 117/50 L 100 03/17/20 01:08 03/17/20 01:08 03/17/20 01:08 03/17/20 01:08 03/17/20 01:08 Course - Vital Signs Vital signs: Temp Pulse Resp BP Pulse Ox 99.4 F 93 22 H 117/50 L 100 03/17/20 01:08 03/17/20 01:08 03/17/20 01:08 03/17/20 01:08 03/17/20 01:08
[2020-03-17 02:34] LABS: ABSOLUTE BASOPHILS # (AUTO) 0.1 10^3/uL (0.0-0.2); ABSOLUTE EOSINOPHILS # (AUTO) 0.1 10^3/uL (0.0-0.6); ABSOLUTE LYMPHOCYTES (AUTO) 1.1 10^3/uL (0.5-4.7); ABSOLUTE MONOCYTES (AUTO) 0.8 10^3/uL (0.1-1.4); ABSOLUTE NEUT (AUTO) 3.6 10^3/uL (1.7-8.2); BASOPHILS % (AUTO) 1.1 % (0-2); EOSINOPHILS % (AUTO) 1.1 % (0-6); HEMATOCRIT 25.8 % (36.0-47.0); HEMOGLOBIN 8.4 g/dL (12.0-15.5); LYMPHOCYTES % (AUTO) 19.1 % (13-45); MEAN CORPUSCULAR HEMOGLOBIN 22.1 pg (27.0-33.4); MEAN CORPUSCULAR HGB CONC 32.5 g/dL (32.0-36.0); MEAN CORPUSCULAR VOLUME 68 fl (80-97); MONOCYTES % (AUTO) 14.4 % (3-13); PLATELET COUNT 244 10^3/uL (150-450); RED BLOOD COUNT 3.79 10^6/uL (3.72-5.28); SEGMENTED NEUTROPHILS % (AUTO) 64.3 % (42-78); TOTAL CELLS COUNTED % (AUTO) 100 %; WHITE BLOOD COUNT 5.6 10^3/uL (4.0-10.5)
[2020-03-17 02:55] LABS: ALBUMIN 4.3 g/dL (3.5-5.0); ALKALINE PHOSPHATASE 78 U/L (38-126); ANION GAP 11 (5-19); ASPARTATE AMINO TRANSFERASE 22 U/L (14-36); BILIRUBIN,DIRECT 0.1 mg/dL (0.0-0.4); BILIRUBIN,TOTAL 0.7 mg/dL (0.2-1.3); BLOOD UREA NITROGEN 9 mg/dL (7-20); CALCIUM 9.6 mg/dL (8.4-10.2); CARBON DIOXIDE 27 mmol/L (22-30); CHLORIDE 104 mmol/L (98-107); GLUCOSE 104 mg/dL (75-110); POTASSIUM 4.2 mmol/L (3.6-5.0); TOTAL PROTEIN 7.7 g/dL (6.3-8.2)
[2020-03-17] MEDS ORDERED: ACETAMINOPHEN 325 MG TABLET PO ONE (03:30)
[2020-03-17] MEDS ORDERED: FAMOTIDINE 20 MG TABLET PO ONE (03:30)
--- NOTE | 2020-03-17 03:50 | RADIOLOGY REPORT (SQ) ---
CHEST X-RAY 1 VIEW on 03/17/2020 at 2:51 AM CLINICAL INDICATION: Cough, chest pain COMPARISON: 06/29/2017 FINDINGS: Cardiomegaly is noted. There is mild elevation of the right hemidiaphragm. The lungs are clear. Hilar and mediastinal contours are within normal limits. Pulmonary vascularity is within normal limits. IMPRESSION: Cardiomegaly with no acute pulmonary disease.
--- NOTE | 2020-03-17 06:08 | ER Document Report ---
ED General - General TRAVEL OUTSIDE OF THE [place] IN LAST 30 DAYS: No <ERIC ARNETT - Last Filed: 03/17/20 06:03> <JESSIE HUSSEIN - Last Filed: 03/17/20 07:56> - General Chief Complaint: Cold Symptoms Stated Complaint: COUGH/CONGESTION/SHORTNESS OF BREATH Time Seen by Provider: 03/17/20 01:20 Primary Care Provider: KATARINA GEORGE MD [ACTIVE STAFF] - Follow up in 1 week Notes: 44-year-old female history of smoking presents with 5 days of dry cough, shortness of breath, subjective fever, malaise, and pain in her chest sharp substernal without radiation without any aggravating or alleviating factors. Patient also complains of "heartburn". Nothing taken for her symptoms prior to arrival. Patient denies any asthma/COPD history, exertional chest pain, pleuritic chest pain, lower extremity edema, exogenous estrogen therapy, DVT/PE/hypercoagulability history in self or family, recent travel/trauma/surgery/immobilization, drug use, diarrhea, constipation, melena, bright red blood per rectum, vomiting. Patient says that she had a very long period that lasted 3 weeks that is now currently resolved for the past 2 days without any current bleeding. (ERIC ARNETT) - Related Data Allergies/Adverse Reactions: No Known Allergies Allergy (Verified 11/22/18 15:13) Past Medical History - General Information source: Patient, [facility] Records - Social History Smoking Status: Current Every Day Smoker Family History: CAD, Hyperlipidemia, Hypertension Renal/ Medical History: Denies: Hx Peritoneal Dialysis Psychiatric Medical History: Reports: Hx Bipolar Disorder, Hx Depression, Hx Schizophrenia - Immunizations Hx Diphtheria, Pertussis, Tetanus Vaccination: Yes <ERIC ARNETT - Last Filed: 03/17/20 06:03> Review of Systems <ERIC ARNETT - Last Filed: 03/17/20 06:03> - Review of Systems Notes: REVIEW OF SYSTEMS: CONSTITUTIONAL : + fever, chills, or sweats. EENT: Denies recent sinus symptoms, denies throat pain CARDIOVASCULAR: + chest pain, -[facility] RESPIRATORY: + cough, +shortness of breath. GASTROINTESTINAL: Denies abdominal pain, nausea/vomiting. GENITOURINARY: Denies difficulty urinating, painful urination. FEMALE GENITOURINARY: + abnormal vaginal bleeding, -vaginal discharge. MUSCULOSKELETAL: Denies neck pain, back pain. SKIN: Denies rash or skin lesions. HEMATOLOGIC : Denies easy bruising or bleeding. LYMPHATIC: Denies swollen, enlarged glands. NEUROLOGICAL: Denies headache, denies change in gait. PSYCHIATRIC: Denies anxiety or stress or depression. (ERIC ARNETT) Physical Exam <ERIC ARNETT - Last Filed: 03/17/20 06:03> - Vital signs Vitals: Temp Pulse Resp BP Pulse Ox 99.4 F 93 22 H 117/50 L 100 03/17/20 01:08 03/17/20 01:08 03/17/20 01:08 03/17/20 01:08 03/17/20 01:08 - Notes Notes: PHYSICAL EXAMINATION: GENERAL: Well-appearing, well-nourished and in no acute distress. HEAD: Atraumatic, normocephalic. EYES: Pupils equal round and appropriate constriction, sclera anicteric, conjunctiva are normal. ENT: nares patent, moist mucous membranes. NECK: Normal range of motion, supple without lymphadenopathy LUNGS: Breath sounds clear to auscultation bilaterally and equal. No wheezes rales or rhonchi. Good air movement. Normal respiratory rate and effort. No accessory muscle use. Speaking in full sentences. HEART: Regular rate and rhythm without murmurs ABDOMEN: Soft, nontender, no guarding, no masses, no CVAT. Scant brown stool on rectal exam, negative guaiac (done at bedside, unable to be entered into [employer] because staff did not have password) EXTREMITIES: Normal range of motion, no pitting or edema. No cyanosis. NEUROLOGICAL: Awake, alert, conversing appropriately, moves all extremities spontaneously. PSYCH: Normal mood, normal affect. SKIN: Warm, Dry, normal turgor, no rashes or lesions noted. (ERIC ARNETT) Course - Laboratory Result Diagrams: 03/17/20 02:13 03/17/20 02:13 <ERIC ARNETT - Last Filed: 03/17/20 06:03> - Laboratory Result Diagrams: 03/17/20 02:13 03/17/20 02:13 <JESSIE HUSSEIN - Last Filed: 03/17/20 07:56> - Re-evaluation Re-evalutation: 03/17/20 06:17 Patient with 5 days of viral symptoms with also chest pain unable to rule out PE with PERC as patient was initially mildly tachycardic. I obtained a D-dimer because of low pretest probability which was positive so patient is currently pending CTA. Otherwise normal respiratory exam, no signs of impending respiratory failure, patient very comfortable during my evaluation and well- appearing. Patient's hemoglobin dropped since her last visit, she endorses axeli ng had a 3-week long menstrual period, no indication for pelvic at this time as patient is not currently bleeding or having any pelvic pain and hCG is negative. I performed a rectal exam (chaperoned by AVTAR Altamirano) to rule out occult bleeding being the source of patient's symptoms as patient has had some intermittent epigastric pain, this was guaiac negative. Ruled out ACS with troponin and EKG which showed no signs of ischemia. Patient had cardiomegaly on chest x-ray, will further evaluate this on CTA likely follow-up with cardiology. Patient turned over to Dr. Hussein pending CTA chest. The patient was evaluated during the global COVID-19 pandemic and that diagnosis was suspected/considered upon their initial presentation. Their evaluation, treatment and testing was consistent with current guidelines for patients who present with complaints or symptoms that may be related to COVID-19. (ERIC ARNETT) 03/17/20 07:50 Chest X-Ray 03/17/20 01:40 IMPRESSION: Cardiomegaly with no acute pulmonary disease. Chest/Abdomen CTA 03/17/20 05:01 IMPRESSION: 1. Bolus timing is suboptimal but no definite pulmonary embolus is noted. 2. Findings consistent with a very mild infectious bronchiolitis in the right upper and right lower lobe. 3. Fatty infiltration of the liver. CTA of chest and abdomen did not disclose acute pulmonary embolus. What is noted is that there is a mild infectious bronchiolitis in the right upper and right lower lobe. Also incidentally patient has fatty infiltration of the liver. Patient's cough and symptoms of an infectious process does make 1 consider COVID-19 as a cause of patient's cough bronchiolitis infection. I discussed with patient that she is under suspicion for COVID-19 she has already been tested in the past 24 hours while in this department. I explained to patient that most likely we would have a result on her COVID-19 testing within t he next 1 to 2 days. Patient advised to self quarantine wear her mask keep her distance from others until we can notify her of her test results for COVID-19. Meanwhile I will place patient on Zithromax x5 days, zinc tablets, vitamin C tablets. (JESSIE HUSSEIN) - Vital Signs Vital signs: Temp Pulse Resp BP Pulse Ox 99.4 F 93 22 H 117/50 L 100 03/17/20 01:08 03/17/20 01:08 03/17/20 01:08 03/17/20 01:08 03/17/20 01:08 - Laboratory Laboratory results interpreted by me: 03/17/20 03/17/20 02:13 04:14 Hgb 8.4 L Hct 25.8 L MCV 68 L MCH 22.1 L RDW 24.0 H [place] % (Auto) 14.4 H D-Dimer 0.56 H - EKG Interpretation by Me Additional EKG results interpreted by me: 03/17/20 06:23 Sinus tachycardia, no significant ST elevations or depressions, no significant T wave abnormalities, QTc 436 (ERIC ARNETT) Discharge <ERIC ARNETT - Last Filed: 03/17/20 06:03> <JESSIE HUSSEIN - Last Filed: 03/17/20 07:56> - Discharge Clinical Impression: Viral syndrome, Acute bronchiolitis due to other infectious organisms Menorrhagia Qualifiers: Menorrhagia type: with irregular cycle Qualified Code(s): N92.1 - Excessive and frequent menstruation with irregular cycle Anemia Qualifiers: Anemia type: unspecified type Qualified Code(s): D64.9 - Anemia, unspecified Chest pain Qualifiers: Chest pain type: unspecified Qualified Code(s): R07.9 - Chest pain, unspecified Condition: Stable Disposition: HOME, SELF-CARE Additional Instructions: Patient was provided with discharge information including: As a person under investigation for Covid 19, the [place] department of Health and Human Services, division of public health advises you to adhere to the following guidance until your test results are reported to you. If your test result is positive, you will receive additional information from your provider and your local health department at that time. Remain at home until you are cleared by the health provider or public health authorities. Keep a log of visitors to your home, notify any visitors to your home of your isolation status. If you plan to move to a new address or leave the county, notify the local health department in your County. Call your doctor or seek care if you have an urgent medical need. Before seeking medical care, call ahead to get instructions from the provider before arriving at the medical office clinic or hospital. Notify them that you are being tested for the virus that causes Covid 19 so that arrangements can be made, as necessary, to prevent transmission to others in the healthcare setting. Next, notify the local health department in your county. If a medical emergency arises and you need to call 911, inform the first responders that you are being tested for the virus that causes Covid 19. Next, notify the local health department in your county. You are anemic today likely from your very long period. You need to follow-up with a plant clerk to further investigate this and see if there are any treatments that would be appropriate for you. If you have any heavy bleeding of pad per hour or more, lightheadedness, dizziness, fainting, pelvic pain, difficulty breathing, worsening chest pain, confusion, or any other worsening or alarming symptoms return to the emergency department immediately. Follow-up with your plant clerk and primary doctor within 1 week. Prescriptions: Ascorbic Acid [Vitamin C] 1,000 mg PO BID #20 tablet Cholecalciferol (Vitamin D3) [Vitamin D3 3000 unit Tablet] 3,000 unit PO 10 #10 tablet Zinc [Zinc Chelated] 50 mg PO BID #14 tablet Azithromycin [Zithromax 250 mg Tablet] 250 mg PO ASDIR #6 tablet Referrals: KATARINA GEORGE MD [ACTIVE STAFF] - Follow up in 1 week
--- NOTE | 2020-03-17 06:53 | EKG REPORT ---
SEVERITY:- OTHERWISE NORMAL ECG - SINUS TACHYCARDIA : Confirmed by: Tang Davenport MD 17-Mar-2020 06:52:23
--- NOTE | 2020-03-17 07:31 | RADIOLOGY REPORT (SQ) ---
CT angiogram chest with contrast on 03/17/2020 at 6:33 AM CLINICAL INDICATION: Chest pain, elevated d-dimer TECHNIQUE: Multiple axial images are obtained throughout the chest following the administration of IV contrast. Computer generated 3D reconstructions/MIPS were performed. This exam was performed according to our departmental dose-optimization program, which includes automated exposure control, adjustment of the mA and/or kV according to patient size and/or use of iterative reconstruction technique. Total DLP is 1123.21 mGy*cm. COMPARISON: None FINDINGS: There is no thoracic aortic aneurysm or dissection. Spleen is at least upper limits of normal for size but is incompletely imaged. There is fatty infiltration of the liver. Visualized upper abdomen is otherwise unremarkable. There is no pleural or pericardial effusion. Bolus timing is suboptimal for evaluation of pulmonary embolus. No definite filling defects are noted however within the pulmonary arteries to suggest pulmonary emboli. There is no thoracic adenopathy. Small clustered areas of tree-in-bud nodular opacities are noted in the right lower lobe and inferior posterior right upper lobe consistent with a mild infectious bronchiolitis. The lungs are otherwise clear. No acute bony abnormality is noted. IMPRESSION: 1. Bolus timing is suboptimal but no definite pulmonary embolus is noted. 2. Findings consistent with a very mild infectious bronchiolitis in the right upper and right lower lobe. 3. Fatty infiltration of the liver.
== END 2020-03-17 08:11 | disposition home or self-care (01) ==
LOC: ER 00:33
DX: U07.1 COVID-19 (principal); J21.8 Acute bronchiolitis due to other specified organisms; N92.1 Excessive and frequent menstruation with irregular cycle; D64.9 Anemia, unspecified; R07.9 Chest pain, unspecified; K76.0 Fatty (change of) liver, not elsewhere classified; I51.7 Cardiomegaly; R05 Cough; R06.02 Shortness of breath; R53.81 Other malaise; R07.2 Precordial pain; R00.0 Tachycardia, unspecified; R10.13 Epigastric pain; F17.200 Nicotine dependence, unspecified, uncomplicated
CPT/HCPCS: 93005; 99285; 36415; 85025; 81025; 80053; 84484; 85379; 71045; 71275; 93010; U0003; A9270 ×2; C9803; 87635

== ENCOUNTER 2020-03-19 13:14 | Emergency (ER) | payer MEDICARE, MEDICAID ==
[2020-03-19 14:27] LABS: ABSOLUTE LYMPHOCYTES (AUTO) 0.9 10^3/uL (0.5-4.7); ABSOLUTE MONOCYTES (AUTO) 0.5 10^3/uL (0.1-1.4); ABSOLUTE NEUT (AUTO) 5.1 10^3/uL (1.7-8.2); BASOPHILS % (AUTO) 0.5 % (0-2); HEMATOCRIT 23.2 % (36.0-47.0); LYMPHOCYTES % (AUTO) 13.7 % (13-45); MEAN CORPUSCULAR HEMOGLOBIN 22.1 pg (27.0-33.4); MEAN CORPUSCULAR HGB CONC 33.4 g/dL (32.0-36.0); MEAN CORPUSCULAR VOLUME 66 fl (80-97); MONOCYTES % (AUTO) 7.1 % (3-13); PLATELET COUNT 226 10^3/uL (150-450); RED CELL DISTRIBUTION WIDTH 24.2 % (11.5-14.0); SEGMENTED NEUTROPHILS % (AUTO) 78.7 % (42-78); TOTAL CELLS COUNTED % (AUTO) 100 %; WHITE BLOOD COUNT 6.5 10^3/uL (4.0-10.5)
[2020-03-19 14:39] LABS: ALBUMIN 4.1 g/dL (3.5-5.0); ALKALINE PHOSPHATASE 68 U/L (38-126); ANION GAP 14 (5-19); ASPARTATE AMINO TRANSFERASE 25 U/L (14-36); BILIRUBIN,TOTAL 0.6 mg/dL (0.2-1.3); BLOOD UREA NITROGEN 11 mg/dL (7-20); CARBON DIOXIDE 23 mmol/L (22-30); CHLORIDE 100 mmol/L (98-107); CREATINE KINASE 321 U/L (30-135); GLUCOSE 125 mg/dL (75-110); POTASSIUM 3.3 mmol/L (3.6-5.0); TOTAL PROTEIN 7.2 g/dL (6.3-8.2)
[2020-03-19] MEDS ORDERED: NORMAL SALINE 1000 ML 1,000 ML IV PRN (14:47)
[2020-03-19 14:51] LABS: ANISOCYTOSIS 3+
[2020-03-19 14:52] LABS: HYPOCHROMASIA 2+; OVALOCYTES 1+; PLATELET COMMENT ADEQUATE; POIKILOCYTOSIS 1+; TARGET CELLS 1+; TEAR DROP CELLS 1+
[2020-03-19 14:53] LABS: CREATINE KINASE MB < 0.22 ng/mL (<4.55); HEMOGLOBIN 7.7 g/dL (12.0-15.5); POLYCHROMASIA 1+; TROPONIN I < 0.012 ng/mL
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
[2020-03-19] MEDS ORDERED: POTASSIUM CHLORIDE 10 MEQ TABLET.ER PO ONE (16:26)
[2020-03-19] MEDS ORDERED: NORMAL SALINE 250 ML IV PRN ×4 (16:27→18:25)
--- NOTE | 2020-03-19 16:38 | RADIOLOGY REPORT (SQ) ---
EXAM DESCRIPTION: CTA CHEST IMAGES COMPLETED DATE/TIME: 03/19/2020 4:25 pm REASON FOR STUDY: syncope, covid, eval for PE COMPARISON: None. TECHNIQUE: CT scan of the chest performed using helical scanning technique with dynamic intravenous contrast injection. Images reviewed with lung, soft tissue and bone windows. Reconstructed coronal and sagittal MPR images reviewed. Additional 3 dimensional post-processing performed to develop Maximal Intensity Projection images (WA P). All images stored on PACS. All CT scanners at this facility use dose modulation, iterative reconstruction, and/or weight based d osing when appropriate to reduce radiation dose to as low as reasonably achievable (ALARA). [facility]: Dose Right [facility]: CareDose [facility]: Dose Right [facility]: Teradose 4D [facility]: LocoMobi CONTRAST TYPE AND DOSE: contrast/concentration: Isovue 350.00 mmol/ml; Total Contrast Delivered: 150 .0 ml; Total Saline Delivered: 79.6 ml RENAL FUNCTION: GFR > 60. RADIATION DOSE: CT Rad equipment meets quality standard of care and radiation dose reduction techniq ues were employed. CTDIvol: 24.8 - 99.2 mGy. DLP: 2947 mGy-cm. . LIMITATIONS: Timing of contrast bolus. Body habitus. FINDINGS: LUNGS AND PLEURA: Patchy subsegmental ground-glass attenuation in the lower lobes and righ t perihilar region. No consolidation. No effusions. AORTA AND GREAT VESSELS: No aneurysm. No dissection. HEART: No pericardial effusion. PULMONARY ARTERIES: No emboli visualized in the main pulmonary arteries or the segmental branches. HILAR AND MEDIASTINAL STRUCTURES: No identified masses or abnormal nodes. HARDWARE: None in the chest. UPPER ABDOMEN: No significant findings. Limited exam. THYROID AND OTHER SOFT TISSUES: No masses. No adenopathy. BONES: No acute or significant finding. 3D MIPS: Confirm above findings. OTHER: No other significant finding. IMPRESSION: 1. No PE. 2. Bilateral pneumonia. COMMENT: Quality ID # [id number]: Final reports with documentation of one or more dose reduction techniques (e.g., Automated exposure control, adjustment of the mA and/or kV according to patient size, use of iterative reconstruction technique) TECHNICAL DOCUMENTATION: JOB ID: [id number] 2010 [email or web address]- All Rights Reserved Reading location - IP/workstation name: [email or web address]
[2020-03-19] MEDS ORDERED: AZITHROMYCIN 250 MG TABLET PO ONE (18:30)
[2020-03-19] MEDS ORDERED: ALBUTEROL SULFATE 0.083% NEB 2.5 MG/3 ML AMPUL NEB ONE (22:42)
--- NOTE | 2020-03-19 22:49 | EKG REPORT ---
SEVERITY:- NORMAL ECG - SINUS RHYTHM : Confirmed by: Emanuel Gandara 19-Mar-2020 22:48:15
[2020-03-20 01:31] VITALS: BP 108/79
== END 2020-03-20 01:33 | disposition left against medical advice (07) ==
LOC: ER 13:14
DX: U07.1 COVID-19 (principal); J18.9 Pneumonia, unspecified organism; A09 Infectious gastroenteritis and colitis, unspecified; D64.9 Anemia, unspecified; R55 Syncope and collapse; E87.6 Hypokalemia; R15.9 Full incontinence of feces; R07.9 Chest pain, unspecified; R05 Cough; F17.200 Nicotine dependence, unspecified, uncomplicated; Z53.20 Procedure and treatment not carried out because of patient's decision for unspecified reasons
CPT/HCPCS: 93005; 94640; 99285; 96360; 96361; 86900; 86901; 36415; 82553; 36430; 86850; 82550; 85025; 80053; 84484; 86920; 71275; 93010; P9016; A9270 ×3; J7030; J7613

== ENCOUNTER 2020-03-20 21:53 | Emergency (ER) | payer MEDICARE, MEDICAID ==
--- NOTE | 2020-03-20 22:39 | ER Document Report ---
ED General - General Chief Complaint: Shortness Of Breath Stated Complaint: SHORTNESS OF BREATH Time Seen by Provider: 03/20/20 22:10 Notes: Patient is a 44-year-old female that comes emergency department by EMS for chief complaint of cough, shortness of breath, and "an episode where I thought I might pass out". She states that she was with her family, her family stated they had to leave, she states she told him that she did not want to be alone, she states after that she was left alone she started feeling anxious and felt like she might pass out. Patient was seen for syncopal episode yesterday, transfused blood, and sent home. Patient denies passing out after she went home again. Patient has been seen 3 times now over the past several days, she has been found to be positive for COVID-19 and diagnosed with pneumonia, she is on az ithromycin, iron, vitamins. Patient is a current smoker, has a history of schizophrenia. Patient was also given a DuoNeb and Solu-Medrol IM in route which she states "made me feel better". She denies any current complaints. TRAVEL OUTSIDE OF THE [place] IN LAST 30 DAYS: No - Related Data Allergies/Adverse Reactions: No Known Allergies Allergy (Verified 11/22/18 15:13) Past Medical History - General Information source: Patient - Social History Smoking Status: Current Every Day Smoker Frequency of alcohol use: None Drug Abuse: None Lives with: Family Family History: CAD, Hyperlipidemia, Hypertension Renal/ Medical History: Denies: Hx Peritoneal Dialysis Psychiatric Medical History: Reports: Hx Bipolar Disorder, Hx Depression, Hx Schizophrenia - Immunizations Hx Diphtheria, Pertussis, Tetanus Vaccination: Yes Review of Systems - Review of Systems Constitutional: See HPI EENT: No symptoms reported Cardiovascular: See HPI Respiratory: See HPI Gastrointestinal: No symptoms reported Genitourinary: No symptoms reported Female Genitourinary: No symptoms reported Musculoskeletal: No symptoms reported Skin: No symptoms reported Hematologic/Lymphatic: No symptoms reported Neurological/Psychological: See HPI Physical Exam - Vital signs Vitals: Temp 99.0 F 03/20/20 22:00 - Notes Notes: GENERAL: Alert, interacts well. No acute distress. HEAD: Normocephalic, atraumatic. EYES: Pupils equal, round, and reactive to light. Extraocular movements intact. ENT: Oral mucosa moist, tongue midline. Oropharynx unremarkable. Airway patent. NECK: Full range of motion. Supple. Trachea midline. No lymphadenopathy. LUNGS: Clear to auscultation bilaterally, no wheezes, rales, or rhonchi. No respiratory distress. Non-tender chest wall. No coughing noted. HEART: Regular rate and rhythm. No murmur ABDOMEN: Exam somewhat limited by morbid obesity but otherwise unremarkable. EXTREMITIES: Moves all 4 extremities spontaneously. No edema, normal radial and dorsalis pedis pulses bilaterally. No cyanosis. BACK: no cervical, thoracic, lumbar midline tenderness. No saddle anesthesia, normal distal neurovascular exam. Moves all extremities in full range of motion. NEUROLOGICAL: Alert and oriented x3. Normal speech. Cranial nerves II through XII grossly intact. Strength 5/5 in all extremities. PSYCH: Initially anxious but then smiling and talkative SKIN: Warm, dry, normal turgor. No rashes or lesions noted. Course - Re-evaluation Re-evalutation: On my exam patient is talkative, well-appearing, lungs are clear, she is able to stand without difficulty, vital signs are unremarkable on the monitor. Patient was initially very anxious, however after work-up and full discussion of these she became calm, began smiling, became relaxed. CBC shows improvement of hemoglobin from yesterday when she received the transfusion without any significant changes. White blood cell unremarkable. Chemistry nonspecific. Chest x-ray borderline, CTA was performed within the past 24 hours and showed no pneumonia without blood clot. Troponin negative. Patient with no complaints at this time. She does not meet admission criteria for COVID-19 pneumonia. She is requesting Zofran for now and for home but she is tolerating p.o. without difficulty. She was provided with this. I discussed follow-up and return precautions. Patient states appreciation and agreement. Stable and well- appearing at time of discharge. - Vital Signs Vital signs: Temp Pulse Resp BP Pulse Ox 99.0 F 25 H 119/64 94 03/20/20 22:00 03/21/20 01:47 03/21/20 01:47 03/21/20 01:47 - Laboratory Result Diagrams: 03/20/20 23:15 03/20/20 23:15 Laboratory results interpreted by me: 03/20/20 03/20/20 23:15 23:15 Hgb 8.6 L Hct 26.2 L MCV 68 L MCH 22.4 L RDW 24.6 H Sodium 131.8 L Chloride 95 L Glucose 120 H AST 43 H - EKG Interpretation by Me Additional EKG results interpreted by me: EKG shows sinus rhythm at a rate of 93, QTc 413, normal axis, no T wave inversions or ST segment changes in consecutive leads. Discharge - Discharge Clinical Impression: Lightheadedness, COVID-19, Cough, Shortness of breath Nausea and vomiting Qualifiers: Vomiting type: unspecified Vomiting Intractability: non-intractable Qualified Code(s): R11.2 - Nausea with vomiting, unspecified Condition: Stable Disposition: HOME, SELF-CARE Additional Instructions: Your blood counts are improved, your evaluation does not show any concerning findings. Take Zofran if needed for nausea and vomiting, drain plenty of fluids, eat bland food to start with. Follow-up with primary care for additional management. Come back if you are worse including uncontrolled vomiting, severe abdominal pain or chest pain, difficulty breathing, passing out again, or any other concerning symptoms. Prescriptions: Ondansetron [Zofran Odt 4 mg Tablet] 1 - 2 tab PO Q4H PRN #15 tab.rapdis PRN Reason: For Nausea/Vomiting
--- NOTE | 2020-03-20 23:23 | RADIOLOGY REPORT (SQ) ---
CLINICAL HISTORY: worsening cough, shortness of breath COMPARISON: None. 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 There is mild interstitial prominence throughout both lungs. There is no pleural effusion. There is no pneumothorax. There are no acute osseous findings. IMPRESSION: Interstitial prominence throughout both lungs. Underlying pneumonia is possible versus pulmonary edema.
[2020-03-20 23:54] LABS: ABSOLUTE MONOCYTES (AUTO) 0.4 10^3/uL (0.1-1.4); ABSOLUTE NEUT (AUTO) 3.8 10^3/uL (1.7-8.2); BASOPHILS % (AUTO) 0.4 % (0-2); HEMATOCRIT 26.2 % (36.0-47.0); HEMOGLOBIN 8.6 g/dL (12.0-15.5); LYMPHOCYTES % (AUTO) 19.7 % (13-45); MEAN CORPUSCULAR HEMOGLOBIN 22.4 pg (27.0-33.4); MEAN CORPUSCULAR HGB CONC 32.9 g/dL (32.0-36.0); MEAN CORPUSCULAR VOLUME 68 fl (80-97); MONOCYTES % (AUTO) 7.9 % (3-13); PLATELET COUNT 201 10^3/uL (150-450); RED BLOOD COUNT 3.86 10^6/uL (3.72-5.28); RED CELL DISTRIBUTION WIDTH 24.6 % (11.5-14.0); TOTAL CELLS COUNTED % (AUTO) 100 %; WHITE BLOOD COUNT 5.3 10^3/uL (4.0-10.5)
[2020-03-21 00:03] LABS: ALBUMIN 4.3 g/dL (3.5-5.0); ALKALINE PHOSPHATASE 61 U/L (38-126); ANION GAP 11 (5-19); ASPARTATE AMINO TRANSFERASE 43 U/L (14-36); BILIRUBIN,DIRECT 0.2 mg/dL (0.0-0.4); BILIRUBIN,TOTAL 0.9 mg/dL (0.2-1.3); BLOOD UREA NITROGEN 9 mg/dL (7-20); CALCIUM 9.1 mg/dL (8.4-10.2); CARBON DIOXIDE 26 mmol/L (22-30); CHLORIDE 95 mmol/L (98-107); GLUCOSE 120 mg/dL (75-110); POTASSIUM 3.8 mmol/L (3.6-5.0); TOTAL PROTEIN 7.6 g/dL (6.3-8.2)
[2020-03-21 00:13] LABS: HYPOCHROMASIA 2+; POLYCHROMASIA SLIGHT; TOXIC VACUOLATION PRESENT
[2020-03-21 00:14] LABS: ANISOCYTOSIS 3+; OVALOCYTES SLIGHT; PLATELET COMMENT ADEQUATE; POIKILOCYTOSIS 1+; TARGET CELLS 1+; TEAR DROP CELLS SLIGHT
[2020-03-21] MEDS ORDERED: ONDANSETRON 4 MG TAB.RAPDIS PO ONE (00:18)
[2020-03-21] MEDS ORDERED: ONDANSETRON ODT 4 MG TAB (6 TAB/ER DISP) PO PRN (01:16)
[2020-03-21 02:05] VITALS: BP 119/64
--- NOTE | 2020-03-21 17:52 | EKG REPORT ---
SEVERITY:- BORDERLINE ECG - SINUS RHYTHM PROBABLE LEFT ATRIAL ABNORMALITY : Confirmed by: Emanuel Gandara 21-Mar-2020 17:52:03
== END 2020-03-21 03:15 | disposition home or self-care (01) ==
LOC: ER 21:53
DX: U07.1 COVID-19 (principal); R11.2 Nausea with vomiting, unspecified; R05 Cough; R06.02 Shortness of breath; R42 Dizziness and giddiness; J18.9 Pneumonia, unspecified organism; F17.200 Nicotine dependence, unspecified, uncomplicated; Z79.899 Other long term (current) drug therapy; Z98.890 Other specified postprocedural states
CPT/HCPCS: 93005; 99285; 36415; 84703; 85025; 80053; 84484; 71045; 93010; A9270 ×2; S0119

== ENCOUNTER 2020-03-21 20:22 | Inpatient (IN) | payer MEDICARE, MEDICAID ==
[~2020-03-21 20:22] MED LIST: CALCIUM GLUCONATE 1000 MG/10 ML INJ IV ONE; EPINEPHRINE INJ 1 MG/10 ML DISP.SYRIN ONE; SODIUM BICARBONATE 8.4% INJ 50 MEQ/50 ML DISP.SYRIN ONE
[2020-03-21] MEDS ORDERED: ACETAMINOPHEN 325 MG TABLET PO ONE (21:14)
[2020-03-21] MEDS ORDERED: ONDANSETRON 4 MG TAB.RAPDIS PO ONE (21:14)
--- NOTE | 2020-03-21 21:18 | ER Document Report ---
ED General - General Chief Complaint: Shortness Of Breath Stated Complaint: COUGH Time Seen by Provider: 03/21/20 20:40 Primary Care Provider: SONJA BURNS DDS [ACTIVE STAFF] - Follow up as needed TRAVEL OUTSIDE OF THE [place] IN LAST 30 DAYS: No - HPI Notes: Patient is a 44-year-old female presents to the emergency department for evaluation of cough, shortness of breath, nausea, just feeling poorly. She was diagnosed with Covid last week. She is diagnosed with Covid pneumonia, started on Zithromax. She states she has been taking symptomatic medications at home. Her diarrhea has ceased, but she continues to feel short of breath. She has chest pain with coughing and deep breaths. She complains of body aches. She was unaware of a fever at home, but states she has been chilled. - Related Data Allergies/Adverse Reactions: No Known Allergies Allergy (Verified 03/21/20 20:35) Past Medical History - General Information source: Patient - Social History Smoking Status: Current Every Day Smoker Frequency of alcohol use: None Drug Abuse: None Family History: CAD, Hyperlipidemia, Hypertension Renal/ Medical History: Denies: Hx Peritoneal Dialysis Psychiatric Medical History: Reports: Hx Bipolar Disorder, Hx Depression, Hx Schizophrenia - Immunizations Hx Diphtheria, Pertussis, Tetanus Vaccination: Yes Review of Systems - Review of Systems Constitutional: See HPI EENT: No symptoms reported Cardiovascular: No symptoms reported Respiratory: See HPI Gastrointestinal: See HPI Genitourinary: No symptoms reported Musculoskeletal: See HPI Skin: No symptoms reported Neurological/Psychological: No symptoms reported -: Yes All other systems reviewed and negative Physical Exam - Vital signs Vitals: Temp Pulse Resp BP Pulse Ox 102.2 F H 86 22 H 120/77 90 L 03/21/20 20:42 03/21/20 20:42 03/21/20 20:42 03/21/20 20:42 03/21/20 20:42 - Notes Notes: This is a morbidly obese 44-year-old female who appears her stated age, in no acute distress. Vital signs reviewed, please refer to chart. Head is normocephalic, atraumatic. Pupils equal round, reactive to light. Neck is supple without meningismus. Heart is regular rate and rhythm. Lungs reveal diminished breath sounds throughout. Abdomen is soft, nontender, normoactive david wel sounds throughout. Extremities without cyanosis, clubbing. Posterior calves are nontender. Peripheral pulses are equal. Skin is warm and dry. Patient is awake, alert, neurological exam is nonfocal. Course - Re-evaluation Re-evalutation: 03/21/20 21:17 Patient presents to the emergency department for evaluation. On arrival here she was found to have a fever, and at the time of my evaluation the patient's oxygenation was 87 to 88% on room air. She was placed on oxygen at 2 L per nasal cannula. Sepsis work-up has begun. Currently attempting IV access. She is currently stable, we will continue to monitor. 03/21/20 23:05 Patient remained stable. Her blood pressures are normal. Her respiratory rate is mildly elevated. Her x-ray shows continued infiltrative process consistent with pneumonia. She has very mild ROBB. I will speak with Dr. Mccormick in regards to admitting this hypoxic COVID pneumonia patient. - Vital Signs Vital signs: Temp Pulse Resp BP Pulse Ox 102.2 F H 86 22 H 120/77 90 L 03/21/20 20:42 03/21/20 20:42 03/21/20 20:42 03/21/20 20:42 03/21/20 20:42 - Laboratory Result Diagrams: 03/21/20 21:58 03/21/20 21:58 Laboratory results interpreted by me: 03/21/20 03/21/20 21:58 21:58 Hgb 8.5 L Hct 26.2 L MCV 68 L MCH 21.9 L RDW 25.5 H Lymph % (Auto) 10.6 L Seg Neutrophils % 84.0 H Sodium 136.7 L Creatinine 1.30 H Est GFR ( Amer) 54 L Est GFR (MDRD) Non-Af 45 L AST 45 H - Diagnostic Test Radiology reviewed: Reports reviewed Radiology results interpreted by me: 03/21/20 23:09 Chest X-Ray 03/21/20 21:14 IMPRESSION: No significant change in hazy bilateral infiltrates. copyright 2011 [employer]- All Rights Reserved - EKG Interpretation by Me Additional EKG results interpreted by me: 03/21/20 21:18 Sinus mechanism rate of 85 bpm. Normal axis and intervals. No acute ST changes concerning for ischemia or infarction. Discharge - Discharge Clinical Impression: COVID-19, Hypoxia Pneumonia Qualifiers: Pneumonia type: due to unspecified organism Laterality: bilateral Condition: Stable Disposition: ADMITTED INPATIENT Admitting Provider: Jace (Hospitalist) Unit Admitted: IMCU - COVID IMCU Referrals: SONJA BURNS DDS [ACTIVE STAFF] - Follow up as needed
[2020-03-21] MEDS ORDERED: NORMAL SALINE 1000 ML 1,000 ML IV ONE (21:27)
--- NOTE | 2020-03-21 22:18 | RADIOLOGY REPORT (SQ) ---
EXAM DESCRIPTION: XR CHEST 1 VIEW COMPLETED DATE/TME: 03/21/2020 21:50 CLINICAL HISTORY: 44 years, Female, cough, fever, COVID COMPARISON: Prior evening NUMBER OF VIEWS: 1 TECHNIQUE: Portable AP upright view of the chest was obtained at 9:43 PM. LIMITATIONS: Body habitus and respiratory motion. FINDINGS: There is stable, mild cardiac enlargement. Hazy bilateral infiltrates are noted within the bilateral mid and lower lung zones, grossly similar to the prior examination. No new airspace opacity is seen. There is no evidence of pleural effusion or pneumothorax. IMPRESSION: No significant change in hazy bilateral infiltrates. copyright 2010 [employer]- All Rights Reserved
[2020-03-21 22:24] LABS: ABSOLUTE LYMPHOCYTES (AUTO) 0.9 10^3/uL (0.5-4.7); ABSOLUTE MONOCYTES (AUTO) 0.5 10^3/uL (0.1-1.4); ABSOLUTE NEUT (AUTO) 7.5 10^3/uL (1.7-8.2); BASOPHILS % (AUTO) 0.2 % (0-2); HEMATOCRIT 26.2 % (36.0-47.0); HEMOGLOBIN 8.5 g/dL (12.0-15.5); LYMPHOCYTES % (AUTO) 10.6 % (13-45); MEAN CORPUSCULAR HEMOGLOBIN 21.9 pg (27.0-33.4); MEAN CORPUSCULAR HGB CONC 32.4 g/dL (32.0-36.0); MEAN CORPUSCULAR VOLUME 68 fl (80-97); MONOCYTES % (AUTO) 5.2 % (3-13); PLATELET COUNT 207 10^3/uL (150-450); RED BLOOD COUNT 3.87 10^6/uL (3.72-5.28); RED CELL DISTRIBUTION WIDTH 25.5 % (11.5-14.0); TOTAL CELLS COUNTED % (AUTO) 100 %; WHITE BLOOD COUNT 8.9 10^3/uL (4.0-10.5)
[2020-03-21 22:29] LABS: INTERNATIONAL RATION (INR) 1.16
[2020-03-21 22:36] LABS: VENOUS BLOOD BASE EXCESS 2.2 mmol/L; VENOUS BLOOD HCO3 27.8 mmol/L (20-32); VENOUS BLOOD PCO2 46.6 mmHg (35-63); VENOUS BLOOD PH 7.39 (7.30-7.42)
[2020-03-21 22:42] LABS: ALBUMIN 4.2 g/dL (3.5-5.0); ALKALINE PHOSPHATASE 58 U/L (38-126); ANION GAP 12 (5-19); ASPARTATE AMINO TRANSFERASE 45 U/L (14-36); BILIRUBIN,DIRECT 0.1 mg/dL (0.0-0.4); BILIRUBIN,TOTAL 0.8 mg/dL (0.2-1.3); BLOOD UREA NITROGEN 15 mg/dL (7-20); CALCIUM 9.7 mg/dL (8.4-10.2); CARBON DIOXIDE 27 mmol/L (22-30); CHLORIDE 98 mmol/L (98-107); GLUCOSE 104 mg/dL (75-110); POTASSIUM 4.2 mmol/L (3.6-5.0); TOTAL PROTEIN 7.4 g/dL (6.3-8.2)
[2020-03-21 22:47] LABS: ANISOCYTOSIS 3+; HYPOCHROMASIA SLIGHT; PLATELET COMMENT ADEQUATE; POIKILOCYTOSIS SLIGHT; POLYCHROMASIA SLIGHT; TARGET CELLS SLIGHT
[2020-03-22] MEDS ORDERED: ONDANSETRON 4 MG TAB.RAPDIS PO PRN (00:07)
[2020-03-22] MEDS ORDERED: PHARMACY COMMUNICATION ORDER MC NR (00:15)
[2020-03-22] MEDS ORDERED: RINGERS SOLUTION,LACTATED 1,000 ML IV SCH ×2 (00:15→02:15)
--- NOTE | 2020-03-22 00:34 | PDOC H&P ---
History of Present Illness Admission Date/PCP: 03/21/20 23:56 ASHUTOSH LLAMAS NP History of Present Illness: CRAIG MCKEON is a 44 year old female with past medical history significant for schizophrenia, morbid obesity with BMI 57.6, tobacco abuse who presents to the ED multiple days in a row for what she describes as possible syncope or presyncope along with productive cough/shortness of breath/TERRY/fever/chills. Patient is an extremely poor historian due to underlying psychiatric illness. She was tested for COVID-19 on 03/17 and this came back positive. Patient came to the ED each day after this for reevaluation. She was discharged on azithromycin and symptomatic treatment medications. Patient returns to the ED today with worsening shortness of breath now requiring 2 L nasal cannula to maintain oxygen saturation greater than 94%. CTPA on previous ED visit recently showed bilateral viral pneumonia consistent with COVID-19, negative for PE. Patient also has mild ROBB with elevated creatinine up to 1.3, suspect prerenal due to dehydration. Patient also had been seen in the ED for menorrhagia although patient states this is now completely resolved and her hemoglobin is stable. She was previously given 1 unit PRBC by the ED. Patient will be admitted to the Covid unit and started on remdesivir and all appropriate supplements. We will trend daily labs and monitor her for worsening respiratory failure. Past Medical History Psychiatric Medical History: Reports: Bipolar Disorder, Depression, Schizoaffective Disorder, Tobacco Dependency Past Surgical History Past Surgical History: Reports: None Social History Information Source: Patient, Emergency Med Personnel Lives with: Family Smoking Status: Current Every Day Smoker Frequency of Alcohol Use: Occasional Hx Recreational Drug Use: Yes Drugs: Marijuana Hx Prescription Drug Abuse: No - Advance Directive Resuscitation Status: Full Code Surrogate healthcare decision maker:: Admitting diagnosis: COVID-19 pneumonia All aspects of code status discussed with patient/POA including cardioversion, chest compressions, and intubation and the patient/POA indicated they wish to be full code MPOA is designated as: SisterAnna Time spent: Greater than 16 minutes Family History Family History: CAD, Hyperlipidemia, Hypertension, Malignancy Parental Family History Reviewed: Yes Children Family History Reviewed: Yes Sibling(s) Family History Reviewed.: Yes Medication/Allergy Home Medications: Benzonatate [Tessalon Perles 100 mg Capsule] 200 mg PO TID #60 capsule 11/29/13 Cephalexin Monohydrate [Keflex 500 mg Capsule] 500 mg PO QID #40 capsule 09/05/15 Amoxicillin 875 mg PO BID #20 tablet 09/09/16 Docusate Sodium 100 mg PO DAILY 30 Days #30 capsule 06/29/17 Ferrous Sulfate 325 mg PO TID #120 tablet 06/29/17 Amoxicillin 1 tab PO TID #30 tab 10/05/17 Clindamycin HCl 300 mg PO TID #30 capsule 11/22/18 Ibuprofen [Ibu] 800 mg PO TID #30 tablet 11/22/18 Ascorbic Acid [Vitamin C] 1,000 mg PO BID #20 tablet 03/17/20 Azithromycin [Zithromax 250 mg Tablet] 250 mg PO ASDIR #6 tablet 03/17/20 Cholecalciferol (Vitamin D3) [Vitamin D3 3000 unit Tablet] 3,000 unit PO 10 #10 tablet 03/17/20 Zinc [Zinc Chelated] 50 mg PO BID #14 tablet 03/17/20 Azithromycin [Zithromax 250 mg Tablet] 250 mg PO DAILY #4 tablet 03/19/20 Ferrous Sulfate [Feosol 325 mg Tablet] 325 mg PO DAILY #30 tab 03/19/20 Ondansetron [Zofran Odt 4 mg Tablet] 1 - 2 tab PO Q4H PRN #15 tab.rapdis 03/21/20 Allergies/Adverse Reactions: No Known Allergies Allergy (Verified 03/21/20 20:35) Review of Systems All systems: reviewed and no additional remarkable complaints except as stated - Per HPI otherwise negative Physical Exam Vital Signs: Temp Pulse Resp BP Pulse Ox 102.2 F H 86 33 H 113/67 99 03/21/20 20:42 03/21/20 20:42 03/21/20 23:01 03/21/20 23:01 03/21/20 23:01 Intake & Output 03/20/20 03/21/20 03/22/20 06:59 06:59 06:59 Weight 147.418 kg Exam: General appearance: PRESENT: no acute distress, morbidly obese with BMI 57.6, -[place] Citizen female, appears anxious Head exam: PRESENT: atraumatic, normocephalic Eye exam: PRESENT: conjunctiva pink. ABSENT: scleral icterus Mouth exam: PRESENT: moist Respiratory exam: PRESENT: Scant crackles bilaterally ABSENT: rales, wheezes Cardiovascular exam: PRESENT: RRR. ABSENT: diastolic murmur, rubs, systolic murmur GI/Abdominal exam: PRESENT: normal bowel sounds, soft. ABSENT: distended, guarding, mass, organolmegaly, rebound, tenderness Neurological exam: PRESENT: alert, awake, oriented to person, oriented to place, oriented to time, oriented to situation; strange affect Psychiatric exam: PRESENT: appropriate affect, normal mood Skin exam: PRESENT: dry, intact, warm Results Laboratory Results: 03/21/20 21:58 03/21/20 21:58 03/21/20 03/21/20 03/21/20 21:58 21:58 21:58 WBC 8.9 RBC 3.87 Hgb 8.5 L Hct 26.2 L MCV 68 L MCH 21.9 L MCHC 32.4 RDW 25.5 H Plt Count 207 Seg Neutrophils % 84.0 H VBG pH VBG pCO2 VBG HCO3 VBG Base Excess Sodium 136.7 L Potassium 4.2 Chloride 98 Carbon Dioxide 27 Anion Gap 12 BUN 15 Creatinine 1.30 H Est GFR ( Amer) 54 L Glucose 104 Lactic Acid 1.4 Calcium 9.7 Total Bilirubin 0.8 AST 45 H Alkaline Phosphatase 58 Total Protein 7.4 Albumin 4.2 03/21/20 21:58 WBC RBC Hgb Hct MCV MCH MCHC RDW Plt Count Seg Neutrophils % VBG pH 7.39 VBG pCO2 46.6 VBG HCO3 27.8 VBG Base Excess 2.2 Sodium Potassium Chloride Carbon Dioxide Anion Gap BUN Creatinine Est GFR ( Amer) Glucose Lactic Acid Calcium Total Bilirubin AST Alkaline Phosphatase Total Protein Albumin 03/21/20 21:58 Troponin I < 0.012 Impressions: Chest X-Ray 03/21/20 21:14 IMPRESSION: No significant change in hazy bilateral infiltrates. copyright 2010 [employer]- All Rights Reserved Assessment and Plan - Diagnosis (1) Pneumonia due to COVID-19 virus Is this a current diagnosis for this admission?: Yes Plan: Tested positive, done on 03/17 Multiple visits to ED with worsening respiratory failure Requiring 2 L nasal cannula on admission to maintain oxygen saturation greater than 94% Appropriate supplements started Remdesivir Covid unit disposition Nebulizer treatments as needed (2) Acute hypoxemic respiratory failure Is this a current diagnosis for this admission?: Yes Plan: Due to COVID-19 pneumonia as above Nebulizer Supplemental oxygen (3) Obesity Qualifiers: Body mass index: BMI 50.0-59.9 Is this a current diagnosis for this admission?: Yes Plan: BMI 57.6 Needs weight loss (4) ROBB (acute kidney injury) Is this a current diagnosis for this admission?: Yes Plan: Presumed prerenal due to dehydration from diarrhea and poor p.o. intake IV fluids Trend BMP (5) Schizophrenia Qualifiers: Schizophrenia type: unspecified Qualified Code(s): F20.9 - Schizophrenia, unspecified Is this a current diagnosis for this admission?: Yes Plan: Unclear history of psychiatric illness, patient is extremely poor historian Patient does not know any of her medications Psychiatry consult - Time Time Spent with patient: 35 or more minutes Smoking Cessation Education: 3 to 10 minutes Medications reviewed and adjusted accordingly: Yes Anticipated Discharge Disposition: Home, Self Care Anticipated Discharge Timeframe: within 72 hours - Inpatient Certification Based on my medical assessment, after consideration of the patient's comorbidities, presenting symptoms, or acuity I expect that the services needed warrant INPATIENT care.: Yes I certify that my determination is in accordance with my understanding of Medicare's requirements for reasonable and necessary INPATIENT services [42 CFR 412.3e].: Yes Medical Necessity: Significant Comorbidiites Make Outpatient Treatment Too Risky, Need Close Monitoring Due to Risk of Patient Decompensation, Need For IV Fluids, Need for IV Antibiotics, Risk of Complication if Not Cared For in Hospital, Risk of Diagnosis Which Will Require Inpatient Eval/Care/Monitoring
[2020-03-22 01:24] LABS: FERRITIN 20.1 ng/mL (6.2-137.0)
[2020-03-22] MEDS ORDERED: RINGERS SOLUTION,LACTATED 1,000 ML IV PRN (02:12)
[2020-03-22] MEDS: ACETAMINOPHEN 325 MG TABLET PO PRN ×3 (02:18→14:34)
[2020-03-22] MEDS ORDERED: BENZONATATE 100 MG CAPSULE PO ONE (02:30)
[2020-03-22] MEDS: HEPARIN SOD (PORCINE) 5,000 UNIT/ML 1 ML VIAL SUBCUT SCH ×3 (05:15→21:25)
[2020-03-22] MEDS: BENZONATATE 100 MG CAPSULE PO SCH ×3 (09:03→17:32)
[2020-03-22] MEDS: FERROUS SULFATE 325 MG TABLET PO SCH (09:03)
[2020-03-22] MEDS: ZINC SULFATE 220 MG CAPSULE PO SCH (09:03)
[2020-03-22] MEDS: CHOLECALCIFEROL (D3) 1,000 UNIT (25 MCG) TABLET PO SCH (09:03)
[2020-03-22] MEDS: ASCORBIC ACID 500 MG TABLET PO SCH ×2 (09:04→17:31)
[2020-03-22] MEDS ORDERED: REMDESIVIR 200 MG in NORMAL SALINE 250 ML IV ONE (14:00)
[2020-03-22] MEDS ORDERED: HALOPERIDOL 5 MG TABLET PO ONE (15:00)
--- NOTE | 2020-03-22 15:45 | PDOC PROGRESS REPORT ---
Subjective Date:: 03/22/20 Subjective:: She has been febrile today. Fortunately her respiratory status has been stable and she is only on about 2 L per nasal cannula. She got agitated and pulled out her IV or having a hard time getting a new IV. She did not get her dose of remdesivir this morning because she pulled out her IV. Her family said that she has been on a bunch of psych medications and had not been getting them. We had our pharmacy reach out to her outpatient pharmacy and apparently the patient has not had any prescriptions for any psychiatric medications to their knowledge. Reason For Visit: COVID-19 PNEUMONIA, ACUTE HYPOXEMIC RESPIRATORY Physical Exam Vital Signs: Temp Pulse Resp BP Pulse Ox 101.7 F H 97 20 103/86 H 83 L 03/22/20 10:38 03/22/20 14:00 03/22/20 01:45 03/22/20 08:58 03/22/20 08:58 Intake & Output 03/21/20 03/22/20 03/23/20 06:59 06:59 06:59 Intake Total 653 Balance 653 Weight 144.8 kg General appearance: PRESENT: cooperative, disheveled, mild distress, morbidly obese Respiratory exam: PRESENT: decreased breath sounds, symmetrical, unlabored. ABSENT: accessory muscle use, chest wall tenderness, prolonged expiratory phas, rhonchi, tachypnea, wheezes Cardiovascular exam: PRESENT: +S1, +S2, tachycardia Pulses: PRESENT: normal carotid pulses Vascular exam: PRESENT: normal capillary refill GI/Abdominal exam: PRESENT: normal bowel sounds, soft. ABSENT: distended, guarding, rebound, tenderness Extremities exam: ABSENT: clubbing, pedal edema Musculoskeletal exam: PRESENT: normal inspection. ABSENT: deformity Neurological exam: PRESENT: awake, oriented to person, oriented to place, oriented to situation Psychiatric exam: PRESENT: anxious Skin exam: PRESENT: dry, warm Results Laboratory Results: 03/21/20 21:58 03/21/20 21:58 03/21/20 03/21/20 03/21/20 21:58 21:58 21:58 WBC 8.9 RBC 3.87 Hgb 8.5 L Hct 26.2 L MCV 68 L MCH 21.9 L MCHC 32.4 RDW 25.5 H Plt Count 207 Seg Neutrophils % 84.0 H VBG pH VBG pCO2 VBG HCO3 VBG Base Excess Sodium 136.7 L Potassium 4.2 Chloride 98 Carbon Dioxide 27 Anion Gap 12 BUN 15 Creatinine 1.30 H Est GFR ( Amer) 54 L Glucose 104 Lactic Acid 1.4 Calcium 9.7 Ferritin Total Bilirubin 0.8 AST 45 H Alkaline Phosphatase 58 Total Protein 7.4 Albumin 4.2 03/21/20 03/21/20 03/22/20 21:58 21:58 00:38 WBC RBC Hgb Hct MCV MCH MCHC RDW Plt Count Seg Neutrophils % VBG pH 7.39 VBG pCO2 46.6 VBG HCO3 27.8 VBG Base Excess 2.2 Sodium Potassium Chloride Carbon Dioxide Anion Gap BUN Creatinine Est GFR ( Amer) Glucose Lactic Acid 1.7 Calcium Ferritin 20.10 Total Bilirubin AST Alkaline Phosphatase Total Protein Albumin 03/22/20 04:26 WBC RBC Hgb Hct MCV MCH MCHC RDW Plt Count Seg Neutrophils % VBG pH VBG pCO2 VBG HCO3 VBG Base Excess Sodium Potassium Chloride Carbon Dioxide Anion Gap BUN Creatinine Est GFR ( Amer) Glucose Lactic Acid 1.8 Calcium Ferritin Total Bilirubin AST Alkaline Phosphatase Total Protein Albumin 03/21/20 21:58 Troponin I < 0.012 Impressions: Chest X-Ray 03/21/20 21:14 IMPRESSION: No significant change in hazy bilateral infiltrates. copyright 2011 [employer]- All Rights Reserved Assessment and Plan - Diagnosis (1) Acute hypoxemic respiratory failure Is this a current diagnosis for this admission?: Yes (2) COVID-19 Is this a current diagnosis for this admission?: Yes (3) Pneumonia due to COVID-19 virus Is this a current diagnosis for this admission?: Yes (4) ROBB (acute kidney injury) Is this a current diagnosis for this admission?: Yes (5) Schizophrenia Qualifiers: Schizophrenia type: unspecified Qualified Code(s): F20.9 - Schizophrenia, unspecified Is this a current diagnosis for this admission?: Yes (6) Morbid obesity with BMI of 50.0-59.9, adult Is this a current diagnosis for this admission?: Yes - Plan Summary Summary: We need to get an IV reestablished so that we can give her remdesivir. If we cannot get a peripheral IV, we may have to get a PICC line. She was also in need of some IV fluids. We need to see if this is actually her baseline creatinine. We have also requested a psychiatry consultation to see if they have any medication recommendations to make at this time. She was agitated earlier and we got her to take a dose of oral Haldol and she seems to settle down some since then. - Time Time Spent with patient: 15-24 minutes Anticipated Discharge Disposition: Undetermined Anticipated Discharge Timeframe: Undetermined - Inpatient Certification Based on my medical assessment, after consideration of the patient's comorbidities, presenting symptoms, or acuity I expect that the services needed warrant INPATIENT care.: Yes I certify that my determination is in accordance with my understanding of Medicare's requirements for reasonable and necessary INPATIENT services [42 CFR 412.3e].: Yes Medical Necessity: Significant Comorbidiites Make Outpatient Treatment Too Risky, Need Close Monitoring Due to Risk of Patient Decompensation, Need For IV Fluids, Need For Continuous Telemetry Monitoring, Risk of Complication if Not Cared For in Hospital
[2020-03-22] MEDS ORDERED: DIPHENHYDRAMINE HCL 50 MG/ML VIAL ONE (16:21)
[2020-03-22] MEDS ORDERED: DIPHENHYDRAMINE HCL 50 MG/ML VIAL IV ONE (16:30)
--- NOTE | 2020-03-22 18:50 | RADIOLOGY REPORT (SQ) ---
EXAM DESCRIPTION: CHEST SINGLE VIEW IMAGES COMPLETED DATE/TIME: 03/22/2020 5:18 pm REASON FOR STUDY: covid. COMPARISON: 03/21/2020 EXAM PARAMETERS: NUMBER OF VIEWS: One view. TECHNIQUE: Single frontal radiographic view of the chest acquired. RADIATION DOSE: NA LIMITATIONS: None. FINDINGS: LUNGS AND PLEURA: Worsening patchy ill-defined opacities in both lungs, upper and lower lo bes. No definite pleural effusion. No pneumothorax. MEDIASTINUM AND HILAR STRUCTURES: No masses. Contour normal. HEART AND VASCULAR STRUCTURES: Moderate cardiomegaly. No pulmonary vascular congestion. BONES: No acute findings. HARDWARE: None in the chest. OTHER: No other significant finding. IMPRESSION: Worsening patchy ill-defined opacities in both lungs, consistent with infectious/ inflam matory process. TECHNICAL DOCUMENTATION: JOB ID: [id number] [address] [employer] [address] [employer]- All Rights Reserved Reading location - IP/workstation name: [email or web address]
[2020-03-22] MEDS: MELATONIN 5 MG TABLET PO SCH (21:24)
[2020-03-22] MEDS: ONDANSETRON HCL INJ/PF 4 MG/2 ML SDV IV PRN (23:33)
--- NOTE | 2020-03-23 00:32 | EKG REPORT ---
SEVERITY:- NORMAL ECG - SINUS RHYTHM : Confirmed by: Emanuel Gandara 23-Mar-2020 00:32:16
[2020-03-23 04:02] LABS: FERRITIN 42.9 ng/mL (6.2-137.0)
[2020-03-23] MEDS: HEPARIN SOD (PORCINE) 5,000 UNIT/ML 1 ML VIAL SUBCUT SCH ×3 (05:12→21:55)
[2020-03-23 06:17] LABS: HEMATOCRIT 25.3 % (36.0-47.0); HEMOGLOBIN 8.2 g/dL (12.0-15.5); MEAN CORPUSCULAR HEMOGLOBIN 21.9 pg (27.0-33.4); MEAN CORPUSCULAR HGB CONC 32.5 g/dL (32.0-36.0); MEAN CORPUSCULAR VOLUME 67 fl (80-97); PLATELET COUNT 177 10^3/uL (150-450); RED BLOOD COUNT 3.77 10^6/uL (3.72-5.28); RED CELL DISTRIBUTION WIDTH 25.3 % (11.5-14.0); WHITE BLOOD COUNT 7.2 10^3/uL (4.0-10.5)
[2020-03-23 06:38] LABS: ANION GAP 12 (5-19); BLOOD UREA NITROGEN 10 mg/dL (7-20); CALCIUM 8.8 mg/dL (8.4-10.2); CARBON DIOXIDE 27 mmol/L (22-30); CHLORIDE 96 mmol/L (98-107); GLUCOSE 108 mg/dL (75-110); PHOSPHORUS 3.5 mg/dL (2.5-4.5); POTASSIUM 4.1 mmol/L (3.6-5.0)
[2020-03-23] MEDS ORDERED: INFLUENZA QUAD (6MOS+) 2020-21 VAC 0.5 ML SYR IM ONE (08:00)
[2020-03-23] MEDS: REMDESIVIR 100 MG in NORMAL SALINE 250 ML IV SCH (10:04)
[2020-03-23] MEDS: ASCORBIC ACID 500 MG TABLET PO SCH ×2 (10:05→17:39)
[2020-03-23] MEDS: ZINC SULFATE 220 MG CAPSULE PO SCH (10:05)
[2020-03-23] MEDS: DOCUSATE SODIUM 100 MG CAPSULE PO SCH (10:05)
[2020-03-23] MEDS: BENZONATATE 100 MG CAPSULE PO SCH ×3 (10:05→17:39)
[2020-03-23] MEDS: FERROUS SULFATE 325 MG TABLET PO SCH (10:05)
[2020-03-23] MEDS: CHOLECALCIFEROL (D3) 1,000 UNIT (25 MCG) TABLET PO SCH (10:05)
--- NOTE | 2020-03-23 14:30 | PDOC PROGRESS REPORT ---
Subjective Date:: 03/23/20 Subjective:: No adverse events overnight. She had one low-grade fever overnight but has had a normal temperature otherwise. She has been stable on 6 to 8 L on the nasal cannula. She is much more calm today. Reason For Visit: COVID-19 PNEUMONIA, ACUTE HYPOXEMIC RESPIRATORY Physical Exam Vital Signs: Temp Pulse Resp BP Pulse Ox 99.2 F 96 22 H 118/62 96 03/23/20 11:40 03/23/20 11:40 03/23/20 11:40 03/23/20 11:40 03/23/20 11:40 Intake & Output 03/22/20 03/23/20 03/24/20 06:59 06:59 06:59 Intake Total 2423 Balance 2423 Weight 144.8 kg 144.4 kg General appearance: PRESENT: cooperative, disheveled, mild distress, morbidly obese Respiratory exam: PRESENT: decreased breath sounds, symmetrical, unlabored. ABSENT: accessory muscle use, chest wall tenderness, prolonged expiratory phas, rhonchi, tachypnea, wheezes Cardiovascular exam: PRESENT: +S1, +S2, tachycardia Pulses: PRESENT: normal carotid pulses Vascular exam: PRESENT: normal capillary refill GI/Abdominal exam: PRESENT: normal bowel sounds, soft. ABSENT: distended, guarding, rebound, tenderness Extremities exam: ABSENT: clubbing, pedal edema Musculoskeletal exam: PRESENT: normal inspection. ABSENT: deformity Neurological exam: PRESENT: awake, oriented to person, oriented to place, oriented to situation Psychiatric exam: PRESENT: anxious, bizarre affect Skin exam: PRESENT: dry, warm Results Laboratory Results: 03/23/20 04:53 03/23/20 04:53 03/23/20 03/23/20 03/23/20 00:22 04:53 04:53 WBC 7.2 RBC 3.77 Hgb 8.2 L Hct 25.3 L MCV 67 L MCH 21.9 L MCHC 32.5 RDW 25.3 H Plt Count 177 Sodium 134.6 L Potassium 4.1 Chloride 96 L Carbon Dioxide 27 Anion Gap 12 BUN 10 Creatinine 1.02 Est GFR ( Amer) > 60 Glucose 108 Calcium 8.8 Phosphorus 3.5 Magnesium 1.9 Ferritin 42.90 03/21/20 21:58 Troponin I < 0.012 Impressions: Chest X-Ray 03/22/20 00:00 IMPRESSION: Worsening patchy ill-defined opacities in both lungs, consistent with infectious/ inflammatory process. Assessment and Plan - Diagnosis (1) Acute hypoxemic respiratory failure Is this a current diagnosis for this admission?: Yes (2) COVID-19 Is this a current diagnosis for this admission?: Yes (3) Pneumonia due to COVID-19 virus Is this a current diagnosis for this admission?: Yes (4) ROBB (acute kidney injury) Is this a current diagnosis for this admission?: Yes (5) Schizophrenia Qualifiers: Schizophrenia type: unspecified Qualified Code(s): F20.9 - Schizophrenia, unspecified Is this a current diagnosis for this admission?: Yes (6) Morbid obesity with BMI of 50.0-59.9, adult Is this a current diagnosis for this admission?: Yes - Plan Summary Summary: She continues on IV remdesivir. Psychiatry consultation is pending. Creatinine is now normal. It would appear that her initial creatinine was an elevation above baseline, suggesting an acute kidney injury that has now resolved. Continue Decadron. Continue oxygen support. - Time Time Spent with patient: 15-24 minutes Anticipated Discharge Disposition: Undetermined Anticipated Discharge Timeframe: Undetermined
[2020-03-23] MEDS ORDERED: LORAZEPAM INJ 2 MG/1 ML VIAL ONE (20:21)
[2020-03-23 20:22] LABS: ARTERIAL BLOOD BASE EXCESS -2.2 mmol/L; ARTERIAL BLOOD HCO3 21.6 mmol/L (20-24); ARTERIAL BLOOD O2 SATURATION 80.7 % (94-98); ARTERIAL BLOOD PCO2 33.1 mmHg (35-45); ARTERIAL BLOOD PH 7.43 (7.35-7.45); ARTERIAL BLOOD PO2 42.8 mmHg (80-100); ARTERIAL BLOOD TOTAL CO2 22.6 mmol/L (21-25)
[2020-03-23 20:23] LABS: ARTERIAL BLOOD FIO2 10L
[2020-03-23] MEDS: IPRATROPIUM/ALBUTEROL 0.5-2.5 MG/3 ML AMPUL NEB PRN (20:26)
[2020-03-23] MEDS: LORAZEPAM INJ 2 MG/1 ML VIAL IV PRN (20:30)
[2020-03-23] MEDS: MELATONIN 5 MG TABLET PO SCH (21:55)
[2020-03-23] MEDS: ACETAMINOPHEN 325 MG TABLET PO PRN (23:29)
[2020-03-24 05:08] LABS: ANION GAP 9 (5-19); BLOOD UREA NITROGEN 12 mg/dL (7-20); CALCIUM 8.9 mg/dL (8.4-10.2); CARBON DIOXIDE 28 mmol/L (22-30); CHLORIDE 98 mmol/L (98-107); GLUCOSE 105 mg/dL (75-110); POTASSIUM 3.7 mmol/L (3.6-5.0)
[2020-03-24 05:22] LABS: HEMATOCRIT 24.4 % (36.0-47.0); MEAN CORPUSCULAR HGB CONC 32.9 g/dL (32.0-36.0); MEAN CORPUSCULAR VOLUME 67 fl (80-97); PLATELET COUNT 176 10^3/uL (150-450); RED BLOOD COUNT 3.65 10^6/uL (3.72-5.28); RED CELL DISTRIBUTION WIDTH 25.4 % (11.5-14.0); WHITE BLOOD COUNT 6.4 10^3/uL (4.0-10.5)
[2020-03-24] MEDS: HEPARIN SOD (PORCINE) 5,000 UNIT/ML 1 ML VIAL SUBCUT SCH ×3 (05:31→23:38)
[2020-03-24] MEDS: LORAZEPAM INJ 2 MG/1 ML VIAL IV PRN (07:48)
[2020-03-24] MEDS ORDERED: DEXAMETHASONE SOD PHOS INJ 10 MG/1 ML VIAL IV SCH (10:00)
[2020-03-24] MEDS: BENZONATATE 100 MG CAPSULE PO SCH ×3 (10:03→17:32)
[2020-03-24] MEDS: REMDESIVIR 100 MG in NORMAL SALINE 250 ML IV SCH (10:03)
[2020-03-24] MEDS: ZINC SULFATE 220 MG CAPSULE PO SCH (10:03)
[2020-03-24] MEDS: ASCORBIC ACID 500 MG TABLET PO SCH ×2 (10:03→17:32)
[2020-03-24] MEDS: FERROUS SULFATE 325 MG TABLET PO SCH (10:03)
[2020-03-24] MEDS: CHOLECALCIFEROL (D3) 1,000 UNIT (25 MCG) TABLET PO SCH (10:03)
[2020-03-24] MEDS: DOCUSATE SODIUM 100 MG CAPSULE PO SCH (10:04)
[2020-03-24] MEDS: CEFTRIAXONE 1 GM/D5W RTU 1 GM/50 ML RTUPB IV SCH (11:17)
[2020-03-24] MEDS: DEXAMETHASONE SOD PHOSPHATE INJ 4 MG/1 ML VIAL IV SCH (11:17)
[2020-03-24] MEDS: AZITHROMYCIN 500 MG in DEXTROSE 5%-WATER 250 ML IV SCH (11:56)
--- NOTE | 2020-03-24 16:25 | PDOC PROGRESS REPORT ---
Subjective Date:: 03/24/20 Subjective:: No adverse events overnight. She has been agitated and responded well to some A tivan and is able to rest now. She has been on nasal cannula at 10 L. Somehow her Decadron managed to fall off her MAR but that has been restarted. She had a fever around midnight but has otherwise been afebrile. Reason For Visit: COVID-19 PNEUMONIA, ACUTE HYPOXEMIC RESPIRATORY Physical Exam Vital Signs: Temp Pulse Resp BP Pulse Ox 97.4 F 87 37 H 116/73 94 03/24/20 12:16 03/24/20 14:00 03/24/20 12:16 03/24/20 12:16 03/24/20 12:16 Intake & Output 03/23/20 03/24/20 03/25/20 06:59 06:59 06:59 Intake Total 2423 250 550 Balance 2423 250 550 Weight 144.4 kg 144.3 kg General appearance: PRESENT: cooperative, disheveled, mild distress, morbidly obese Respiratory exam: PRESENT: decreased breath sounds, symmetrical, unlabored, tachypnea. ABSENT: accessory muscle use, chest wall tenderness, prolonged expiratory phas, rhonchi, wheezes Cardiovascular exam: PRESENT: +S1, +S2, tachycardia Pulses: PRESENT: normal carotid pulses Vascular exam: PRESENT: normal capillary refill GI/Abdominal exam: PRESENT: normal bowel sounds, soft. ABSENT: distended, guarding, rebound, tenderness Extremities exam: ABSENT: clubbing, pedal edema Musculoskeletal exam: PRESENT: normal inspection. ABSENT: deformity Neurological exam: PRESENT: Asleep, did not want to wake up for me but appeared comfortable Skin exam: PRESENT: dry, warm Results Laboratory Results: 03/24/20 04:12 03/24/20 04:12 03/23/20 03/24/20 03/24/20 20:13 04:12 04:12 WBC 6.4 RBC 3.65 L Hgb 8.0 L Hct 24.4 L MCV 67 L MCH 22.0 L MCHC 32.9 RDW 25.4 H Plt Count 176 Carbonic Acid 1.00 L HCO3/H2CO3 Ratio 21:1 ABG pH 7.43 ABG pCO2 33.1 L ABG pO2 42.8 L ABG HCO3 21.6 ABG O2 Saturation 80.7 L ABG Base Excess -2.2 FiO2 10L Sodium Potassium Chloride Carbon Dioxide Anion Gap BUN Creatinine Est GFR ( Amer) Glucose Calcium Ferritin 41.00 03/24/20 04:12 WBC RBC Hgb Hct MCV MCH MCHC RDW Plt Count Carbonic Acid HCO3/H2CO3 Ratio ABG pH ABG pCO2 ABG pO2 ABG HCO3 ABG O2 Saturation ABG Base Excess FiO2 Sodium 135.2 L Potassium 3.7 Chloride 98 Carbon Dioxide 28 Anion Gap 9 BUN 12 Creatinine 0.94 Est GFR ( Amer) > 60 Glucose 105 Calcium 8.9 Ferritin 03/21/20 21:58 Troponin I < 0.012 Impressions: Chest X-Ray 03/22/20 00:00 IMPRESSION: Worsening patchy ill-defined opacities in both lungs, consistent with infectious/ inflammatory process. Assessment and Plan - Diagnosis (1) Acute hypoxemic respiratory failure Is this a current diagnosis for this admission?: Yes (2) COVID-19 Is this a current diagnosis for this admission?: Yes (3) Pneumonia due to COVID-19 virus Is this a current diagnosis for this admission?: Yes (4) ROBB (acute kidney injury) Is this a current diagnosis for this admission?: Yes (5) Schizophrenia Qualifiers: Schizophrenia type: unspecified Qualified Code(s): F20.9 - Schizophrenia, unspecified Is this a current diagnosis for this admission?: Yes (6) Morbid obesity with BMI of 50.0-59.9, adult Is this a current diagnosis for this admission?: Yes - Plan Summary Summary: She continues on IV remdesivir. Psychiatry consultation is pending. Creatinine is now normal. Acute kidney injury resolved. Continue Decadron. Continue oxygen support. Empiric antibiotics were started to treat any potential coexisting bacterial pneumonia. - Time Time Spent with patient: 25-34 minutes Anticipated Discharge Disposition: Undetermined Anticipated Discharge Timeframe: Undetermined
[2020-03-24] MEDS: MELATONIN 5 MG TABLET PO SCH (23:39)
[2020-03-25] MEDS: HEPARIN SOD (PORCINE) 5,000 UNIT/ML 1 ML VIAL SUBCUT SCH ×3 (05:13→21:46)
[2020-03-25 06:22] LABS: HEMATOCRIT 26.2 % (36.0-47.0); HEMOGLOBIN 8.6 g/dL (12.0-15.5); MEAN CORPUSCULAR HEMOGLOBIN 21.9 pg (27.0-33.4); MEAN CORPUSCULAR HGB CONC 32.8 g/dL (32.0-36.0); MEAN CORPUSCULAR VOLUME 67 fl (80-97); PLATELET COUNT 231 10^3/uL (150-450); RED BLOOD COUNT 3.93 10^6/uL (3.72-5.28); RED CELL DISTRIBUTION WIDTH 26.1 % (11.5-14.0); WHITE BLOOD COUNT 6.5 10^3/uL (4.0-10.5)
[2020-03-25 07:00] LABS: ANION GAP 10 (5-19); BLOOD UREA NITROGEN 10 mg/dL (7-20); CALCIUM 9.2 mg/dL (8.4-10.2); CARBON DIOXIDE 30 mmol/L (22-30); CHLORIDE 98 mmol/L (98-107); GLUCOSE 141 mg/dL (75-110); POTASSIUM 4.2 mmol/L (3.6-5.0)
[2020-03-25] MEDS: CEFTRIAXONE 1 GM/D5W RTU 1 GM/50 ML RTUPB IV SCH (07:32)
[2020-03-25] MEDS: DEXAMETHASONE SOD PHOSPHATE INJ 4 MG/1 ML VIAL IV SCH (09:03)
[2020-03-25] MEDS: CHOLECALCIFEROL (D3) 1,000 UNIT (25 MCG) TABLET PO SCH (09:04)
[2020-03-25] MEDS: BENZONATATE 100 MG CAPSULE PO SCH ×3 (09:04→17:36)
[2020-03-25] MEDS: FERROUS SULFATE 325 MG TABLET PO SCH (09:04)
[2020-03-25] MEDS: ZINC SULFATE 220 MG CAPSULE PO SCH (09:04)
[2020-03-25] MEDS: DOCUSATE SODIUM 100 MG CAPSULE PO SCH (09:04)
[2020-03-25] MEDS: ASCORBIC ACID 500 MG TABLET PO SCH ×2 (09:04→17:36)
[2020-03-25] MEDS: ACETAMINOPHEN 325 MG TABLET PO PRN (09:20)
[2020-03-25] MEDS: AZITHROMYCIN 500 MG in DEXTROSE 5%-WATER 250 ML IV SCH (10:11)
[2020-03-25] MEDS: REMDESIVIR 100 MG in NORMAL SALINE 250 ML IV SCH (12:18)
--- NOTE | 2020-03-25 16:24 | PSYCHOLOGICAL NOTE ---
Psych Note - Psych Note Date seen by psych provider: 03/25/20 Time seen by psych provider: 16:00 Psych Note: Medication recommendations per [facility]'s contracted psychiatrist are as follows Haldol 2.5 mg twice daily for confusion, agitation, psychosis Impression\plan: At this time it is unclear if patient's current presentation is due to medical condition i.e. delirium. Spoke with attending physician. Patient is still not medically stable. Please contact the behavioral health team if patient's medical stabilizes and/or improves but her mental presentation continues to be altered.
--- NOTE | 2020-03-25 16:40 | PDOC PROGRESS REPORT ---
Subjective Date:: 03/25/20 Subjective:: No adverse events overnight. Her vital signs have been stable. She was afebril e overnight. She had to be switched over to a nonrebreather at 15 L because we were unable to keep her SPO2 above 90% on the Oxymizer in the nasal cannula. Her saturations have since improved and her respiratory rate has slowed down. Reason For Visit: COVID-19 PNEUMONIA, ACUTE HYPOXEMIC RESPIRATORY Physical Exam Vital Signs: Temp Pulse Resp BP Pulse Ox 98.3 F 92 23 H 130/99 H 96 03/25/20 11:12 03/25/20 14:00 03/25/20 11:12 03/25/20 11:12 03/25/20 11:12 Intake & Output 03/24/20 03/25/20 03/26/20 06:59 06:59 06:59 Intake Total 250 930 550 Output Total 825 Balance 250 105 550 Weight 144.3 kg 141.2 kg General appearance: PRESENT: cooperative, disheveled, mild distress, morbidly obese Respiratory exam: PRESENT: decreased breath sounds, symmetrical, unlabored, tachypnea. ABSENT: accessory muscle use, chest wall tenderness, prolonged expiratory phase, rhonchi, wheezes Cardiovascular exam: PRESENT: +S1, +S2, tachycardia Pulses: PRESENT: normal carotid pulses Vascular exam: PRESENT: normal capillary refill GI/Abdominal exam: PRESENT: normal bowel sounds, soft. ABSENT: distended, guarding, rebound, tenderness Extremities exam: ABSENT: clubbing, pedal edema Musculoskeletal exam: PRESENT: normal inspection. ABSENT: deformity Neurological exam: PRESENT: Asleep, open her eyes and looked at me and then closed them whenever I spoke to her Skin exam: PRESENT: dry, warm Results Laboratory Results: 03/25/20 05:38 03/25/20 05:38 03/25/20 03/25/20 05:38 05:38 WBC 6.5 RBC 3.93 Hgb 8.6 L Hct 26.2 L MCV 67 L MCH 21.9 L MCHC 32.8 RDW 26.1 H Plt Count 231 Sodium 137.7 Potassium 4.2 Chloride 98 Carbon Dioxide 30 Anion Gap 10 BUN 10 Creatinine 0.69 Est GFR ( Amer) > 60 Glucose 141 H Calcium 9.2 03/21/20 21:58 Troponin I < 0.012 Impressions: Chest X-Ray 03/22/20 00:00 IMPRESSION: Worsening patchy ill-defined opacities in both lungs, consistent with infectious/ inflammatory process. Assessment and Plan - Diagnosis (1) Acute hypoxemic respiratory failure Is this a current diagnosis for this admission?: Yes (2) COVID-19 Is this a current diagnosis for this admission?: Yes (3) Pneumonia due to COVID-19 virus Is this a current diagnosis for this admission?: Yes (4) ROBB (acute kidney injury) Is this a current diagnosis for this admission?: Yes (5) Schizophrenia Qualifiers: Schizophrenia type: unspecified Qualified Code(s): F20.9 - Schizophrenia, unspecified Is this a current diagnosis for this admission?: Yes (6) Morbid obesity with BMI of 50.0-59.9, adult Is this a current diagnosis for this admission?: Yes - Plan Summary Summary: She continues on IV remdesivir. Psychiatry consultation is not appropriate at this time because the patient is not medically stable which would confound any evaluation. Creatinine is now normal. Acute kidney injury resolved. Continue Decadron. Continue oxygen support. Empiric antibiotics were started to treat any potential coexisting bacterial pneumonia. She will require close monitoring for further respiratory decompensation. - Time Time Spent with patient: 15-24 minutes Anticipated Discharge Disposition: Undetermined Anticipated Discharge Timeframe: Undetermined
[2020-03-25] MEDS: LORAZEPAM INJ 2 MG/1 ML VIAL IV PRN (21:46)
[2020-03-25] MEDS: MELATONIN 5 MG TABLET PO SCH (21:46)
[2020-03-26] MEDS: LORAZEPAM INJ 2 MG/1 ML VIAL IV PRN ×6 (01:40→21:14)
[2020-03-26 02:25] LABS: ARTERIAL BLOOD BASE EXCESS 5.7 mmol/L; ARTERIAL BLOOD H2CO3 1.31 mmol/L (1.05-1.35); ARTERIAL BLOOD HCO3 30.2 mmol/L (20-24); ARTERIAL BLOOD O2 SATURATION 82.9 % (94-98); ARTERIAL BLOOD PCO2 43.6 mmHg (35-45); ARTERIAL BLOOD PH 7.46 (7.35-7.45); ARTERIAL BLOOD PO2 44.8 mmHg (80-100); ARTERIAL BLOOD TOTAL CO2 31.5 mmol/L (21-25)
[2020-03-26 02:32] LABS: ARTERIAL BLOOD FIO2 15L
[2020-03-26] MEDS: HEPARIN SOD (PORCINE) 5,000 UNIT/ML 1 ML VIAL SUBCUT SCH ×3 (06:40→21:00)
[2020-03-26] MEDS ORDERED: NORMAL SALINE 250 ML IV PRN ×2 (07:44)
[2020-03-26] MEDS: CEFTRIAXONE 1 GM/D5W RTU 1 GM/50 ML RTUPB IV SCH (09:19)
[2020-03-26] MEDS: DOCUSATE SODIUM 100 MG CAPSULE PO SCH (09:20)
[2020-03-26] MEDS: CHOLECALCIFEROL (D3) 1,000 UNIT (25 MCG) TABLET PO SCH (09:20)
[2020-03-26] MEDS: ZINC SULFATE 220 MG CAPSULE PO SCH (09:20)
[2020-03-26] MEDS: BENZONATATE 100 MG CAPSULE PO SCH ×3 (09:20→17:53)
[2020-03-26] MEDS: DEXAMETHASONE SOD PHOSPHATE INJ 4 MG/1 ML VIAL IV SCH (09:21)
[2020-03-26] MEDS: ASCORBIC ACID 500 MG TABLET PO SCH ×2 (09:21→17:53)
[2020-03-26] MEDS: AZITHROMYCIN 500 MG in DEXTROSE 5%-WATER 250 ML IV SCH (09:21)
[2020-03-26] MEDS: FERROUS SULFATE 325 MG TABLET PO SCH (09:21)
[2020-03-26] MEDS: REMDESIVIR 100 MG in NORMAL SALINE 250 ML IV SCH (11:31)
--- NOTE | 2020-03-26 16:35 | PDOC PROGRESS REPORT ---
Subjective Date:: 03/26/20 Subjective:: No adverse events overnight. Oxygen requirement has slowly increased overnight. She does not want to wear a CPAP mask. I put her on a high flow and a nonrebreather. I tried to encourage her to put on CPAP. Her hemoglobin was a little low and has been, as she looks to be iron deficient. Reason For Visit: COVID-19 PNEUMONIA, ACUTE HYPOXEMIC RESPIRATORY Physical Exam Vital Signs: Temp Pulse Resp BP Pulse Ox 98.5 F 84 22 H 128/77 H 96 03/26/20 15:12 03/26/20 15:12 03/26/20 15:12 03/26/20 15:12 03/26/20 15:12 Intake & Output 03/25/20 03/26/20 03/27/20 06:59 06:59 06:59 Intake Total 930 650 810 Output Total 825 525 Balance 105 125 810 Weight 141.2 kg 142.3 kg General appearance: PRESENT: cooperative, disheveled, mild distress, morbidly obese Respiratory exam: PRESENT: decreased breath sounds, symmetrical, unlabored, tachypnea. ABSENT: accessory muscle use, chest wall tenderness, prolonged expiratory phase, rhonchi, wheezes Cardiovascular exam: PRESENT: +S1, +S2, tachycardia Pulses: PRESENT: normal carotid pulses Vascular exam: PRESENT: normal capillary refill GI/Abdominal exam: PRESENT: normal bowel sounds, soft. ABSENT: distended, guarding, rebound, tenderness Extremities exam: ABSENT: clubbing, pedal edema Musculoskeletal exam: PRESENT: normal inspection. ABSENT: deformity Neurological exam: PRESENT: Asleep, open her eyes and looked at me and then closed them whenever I spoke to her Skin exam: PRESENT: dry, warm Results Laboratory Results: 03/25/20 05:38 03/25/20 05:38 03/26/20 03/26/20 02:00 11:10 Carbonic Acid 1.31 HCO3/H2CO3 Ratio 23:1 ABG pH 7.46 H ABG pCO2 43.6 ABG pO2 44.8 L ABG HCO3 30.2 H ABG O2 Saturation 82.9 L ABG Base Excess 5.7 FiO2 15L Blood Type O POSITIVE Antibody Screen NEGATIVE 03/21/20 21:58 Troponin I < 0.012 Impressions: Chest X-Ray 03/22/20 00:00 IMPRESSION: Worsening patchy ill-defined opacities in both lungs, consistent with infectious/ inflammatory process. Assessment and Plan - Diagnosis (1) Acute hypoxemic respiratory failure Is this a current diagnosis for this admission?: Yes (2) COVID-19 Is this a current diagnosis for this admission?: Yes (3) Pneumonia due to COVID-19 virus Is this a current diagnosis for this admission?: Yes (4) ROBB (acute kidney injury) Is this a current diagnosis for this admission?: Yes (5) Schizophrenia Qualifiers: Schizophrenia type: unspecified Qualified Code(s): F20.9 - Schizophrenia, unspecified Is this a current diagnosis for this admission?: Yes (6) Morbid obesity with BMI of 50.0-59.9, adult Is this a current diagnosis for this admission?: Yes - Plan Summary Summary: She continues on IV remdesivir. Psychiatry consultation is not appropriate at this time because the patient is not medically stable which would confound any evaluation. Creatinine is now normal. Acute kidney injury resolved. Continue Decadron. Continue oxygen support. Empiric antibiotics were started to treat any potential coexisting bacterial pneumonia. She is currently on high flow nasal cannula but she may wind up requiring CPAP soon. We will try to get a couple units of packed red cells transfused to see if this will help with her oxygenation delivery. - Time Time Spent with patient: 15-24 minutes Anticipated Discharge Disposition: Unknown Anticipated Discharge Timeframe: Unknown
--- NOTE | 2020-03-26 18:59 | PDOC CONSULTATION ---
Consultation-Blank Consultation: Behavioral Health Consult: Nothing new done today Patient seen already and medication recommendations provided. Presenting Problem: Altered Mental Status Impression/Plan: Hospitalist is to re consult behavioral health once medically stabilized. Medication recommendations were already provided.
[2020-03-26] MEDS: MELATONIN 5 MG TABLET PO SCH (21:00)
[2020-03-27] MEDS: LORAZEPAM INJ 2 MG/1 ML VIAL IV PRN ×2 (03:02→15:39)
[2020-03-27] MEDS ORDERED: LORAZEPAM INJ 2 MG/1 ML VIAL IV ONE (05:30)
[2020-03-27] MEDS: HEPARIN SOD (PORCINE) 5,000 UNIT/ML 1 ML VIAL SUBCUT SCH ×3 (06:13→21:57)
[2020-03-27] MEDS: MORPHINE SULFATE 10 MG/ML INJ IV PRN ×2 (09:50→21:56)
[2020-03-27] MEDS: ZINC SULFATE 220 MG CAPSULE PO SCH (09:51)
[2020-03-27] MEDS: CEFTRIAXONE 1 GM/D5W RTU 1 GM/50 ML RTUPB IV SCH (09:51)
[2020-03-27] MEDS: CHOLECALCIFEROL (D3) 1,000 UNIT (25 MCG) TABLET PO SCH (09:52)
[2020-03-27] MEDS: ASCORBIC ACID 500 MG TABLET PO SCH ×2 (09:53→17:27)
[2020-03-27] MEDS: FERROUS SULFATE 325 MG TABLET PO SCH (09:53)
[2020-03-27] MEDS: BENZONATATE 100 MG CAPSULE PO SCH ×3 (09:53→17:27)
[2020-03-27] MEDS: DOCUSATE SODIUM 100 MG CAPSULE PO SCH (09:53)
[2020-03-27] MEDS: DEXAMETHASONE SOD PHOSPHATE INJ 4 MG/1 ML VIAL IV SCH (09:54)
[2020-03-27] MEDS: AZITHROMYCIN 500 MG in DEXTROSE 5%-WATER 250 ML IV SCH (11:35)
--- NOTE | 2020-03-27 15:19 | PDOC PROGRESS REPORT ---
Subjective Date:: 03/27/20 Subjective:: No adverse events overnight. Patient remains hypoxic. She had a fever this aft ernoon. When I came in to see her this morning she was sitting up in the bed and had taken off of her CPAP. The machine said she was taking good tidal volumes but she appeared to just breathe very shallow and rapidly. We increased the PEEP up to 10 and she seemed to settle down just a bit. Reason For Visit: COVID-19 PNEUMONIA, ACUTE HYPOXEMIC RESPIRATORY Physical Exam Vital Signs: Temp Pulse Resp BP Pulse Ox 101.4 F H 122 H 44 H 130/73 H 93 03/27/20 12:00 03/27/20 12:00 03/27/20 12:00 03/27/20 12:00 03/27/20 12:00 Intake & Output 03/26/20 03/27/20 03/28/20 06:59 06:59 06:59 Intake Total 650 1110 Output Total 525 900 500 Balance 125 210 -500 Weight 142.3 kg 142.3 kg General appearance: PRESENT: cooperative, disheveled, mild distress, morbidly obese Respiratory exam: PRESENT: decreased breath sounds, symmetrical, unlabored, tachypnea. ABSENT: accessory muscle use, chest wall tenderness, prolonged expi ratory phase, rhonchi, wheezes Cardiovascular exam: PRESENT: +S1, +S2, tachycardia Pulses: PRESENT: normal carotid pulses Vascular exam: PRESENT: normal capillary refill GI/Abdominal exam: PRESENT: normal bowel sounds, soft. ABSENT: distended, guarding, rebound, tenderness Extremities exam: ABSENT: clubbing, pedal edema Musculoskeletal exam: PRESENT: normal inspection. ABSENT: deformity Neurological exam: PRESENT: Sitting up in bed moving her extremities independently Skin exam: PRESENT: dry, warm Results Laboratory Results: 03/25/20 05:38 03/25/20 05:38 03/26/20 11:10 Blood Type O POSITIVE Antibody Screen NEGATIVE 03/22/20 00:38 Blood Blood Culture - Final NO GROWTH IN 5 DAYS 03/21/20 21:58 Blood Blood Culture - Final NO GROWTH IN 5 DAYS 03/21/20 21:58 Troponin I < 0.012 Impressions: Chest X-Ray 03/22/20 00:00 IMPRESSION: Worsening patchy ill-defined opacities in both lungs, consistent with infectious/ inflammatory process. Assessment and Plan - Diagnosis (1) Acute hypoxemic respiratory failure Is this a current diagnosis for this admission?: Yes (2) COVID-19 Is this a current diagnosis for this admission?: Yes (3) Pneumonia due to COVID-19 virus Is this a current diagnosis for this admission?: Yes (4) ROBB (acute kidney injury) Is this a current diagnosis for this admission?: Yes (5) Schizophrenia Qualifiers: Schizophrenia type: unspecified Qualified Code(s): F20.9 - Schizophrenia, unspecified Is this a current diagnosis for this admission?: Yes (6) Morbid obesity with BMI of 50.0-59.9, adult Is this a current diagnosis for this admission?: Yes - Plan Summary Summary: She continues on IV remdesivir. Psychiatry consultation is not appropriate at this time because the patient is not medically stable which would confound any evaluation. Creatinine is now normal. Acute kidney injury resolved. Continue Decadron. Continue oxygen support. Empiric antibiotics were started to treat any potential coexisting bacterial pneumonia. We transfused 2 units of packed red cells yesterday to assist with oxygen delivery. She is now on CPAP with a PEEP of 10 and 100% oxygen. She is receiving maximal treatment at this point but unfortunately her hypoxemia seems to be progressing. She cannot be reasoned with and she will try to focus on taking deeper breaths. I have added a small dose of morphine to see if it will help her relax and breathe more effectively. - Time Time Spent with patient: 25-34 minutes Anticipated Discharge Disposition: Undetermin Anticipated Discharge Timeframe: Unknown
[2020-03-27] MEDS: MELATONIN 5 MG TABLET PO SCH (21:56)
[2020-03-28] MEDS: LORAZEPAM INJ 2 MG/1 ML VIAL IV PRN ×2 (02:11→08:10)
[2020-03-28] MEDS: MORPHINE SULFATE 10 MG/ML INJ IV PRN ×3 (04:03→23:56)
[2020-03-28] MEDS: HEPARIN SOD (PORCINE) 5,000 UNIT/ML 1 ML VIAL SUBCUT SCH ×3 (06:05→21:09)
[2020-03-28] MEDS: CEFTRIAXONE 1 GM/D5W RTU 1 GM/50 ML RTUPB IV SCH (07:58)
[2020-03-28] MEDS: DEXAMETHASONE SOD PHOSPHATE INJ 4 MG/1 ML VIAL IV SCH (09:47)
[2020-03-28] MEDS: ZINC SULFATE 220 MG CAPSULE PO SCH (09:48)
[2020-03-28] MEDS: ASCORBIC ACID 500 MG TABLET PO SCH ×2 (09:48→18:17)
[2020-03-28] MEDS: BENZONATATE 100 MG CAPSULE PO SCH ×3 (09:48→18:17)
[2020-03-28] MEDS: DOCUSATE SODIUM 100 MG CAPSULE PO SCH (09:48)
[2020-03-28] MEDS: CHOLECALCIFEROL (D3) 1,000 UNIT (25 MCG) TABLET PO SCH (09:48)
[2020-03-28] MEDS: FERROUS SULFATE 325 MG TABLET PO SCH (09:48)
[2020-03-28] MEDS: AZITHROMYCIN 500 MG in DEXTROSE 5%-WATER 250 ML IV SCH (10:21)
[2020-03-28 11:35] LABS: HEMATOCRIT 30.3 % (36.0-47.0); HEMOGLOBIN 9.8 g/dL (12.0-15.5); MEAN CORPUSCULAR HEMOGLOBIN 22.9 pg (27.0-33.4); MEAN CORPUSCULAR HGB CONC 32.4 g/dL (32.0-36.0); PLATELET COUNT 261 10^3/uL (150-450); RED BLOOD COUNT 4.29 10^6/uL (3.72-5.28); RED CELL DISTRIBUTION WIDTH 26.6 % (11.5-14.0); WHITE BLOOD COUNT 17.3 10^3/uL (4.0-10.5)
[2020-03-28 11:51] LABS: ANION GAP 11 (5-19); BLOOD UREA NITROGEN 14 mg/dL (7-20); CALCIUM 9.8 mg/dL (8.4-10.2); CARBON DIOXIDE 33 mmol/L (22-30); CHLORIDE 97 mmol/L (98-107); GLUCOSE 164 mg/dL (75-110); POTASSIUM 3.9 mmol/L (3.6-5.0)
[2020-03-28 12:04] LABS: MEAN CORPUSCULAR VOLUME 71 fl (80-97)
[2020-03-28 12:05] LABS: BAND NEUTROPHILS % (MANUAL) 1 % (3-5); BASOPHILS % (MANUAL) 0 % (0-2); EOSINOPHILS % (MANUAL) 0 % (0-6); LYMPHOCYTES % (MANUAL) 5 % (13-45); MONOCYTES % (MANUAL) 6 % (3-13); NUCLEATED RED BLOOD CELLS 2 /100 WBC (0); SEGMENTED NEUTROPHILS % (MAN) 87 % (42-78); TOTAL CELLS COUNTED 100
[2020-03-28 12:07] LABS: ANISOCYTOSIS 3+; POLYCHROMASIA 1+
[2020-03-28 12:08] LABS: PLATELET COMMENT ADEQUATE; POIKILOCYTOSIS 1+; SCHISTOCYTES SLIGHT; TARGET CELLS 2+; TEAR DROP CELLS 1+
--- NOTE | 2020-03-28 12:28 | PDOC PROGRESS REPORT ---
Subjective Date:: 03/28/20 Subjective:: Patient's respiratory status remains tenuous. She remains hypoxic. She was rita germán on CPAP this morning due to hypoxemia. Being treated with IV remdesivir. Patient was also transfused with 2 units of packed red blood cells apparently to assist with hypoxemia white count is noted to be 17.3 and her H&H did respond to the blood transfusion she is likely acidotic. Behavioral health consultation will be done when patient more medically appropriate Reason For Visit: COVID-19 PNEUMONIA, ACUTE HYPOXEMIC RESPIRATORY Physical Exam Vital Signs: Temp Pulse Resp BP Pulse Ox 99.3 F 138 H 49 H 123/85 90 L 03/28/20 08:42 03/28/20 10:18 03/28/20 10:18 03/28/20 08:42 03/28/20 10:18 Intake & Output 03/27/20 03/28/20 03/29/20 06:59 06:59 06:59 Intake Total 1410 300 Output Total 900 1000 Balance 510 -700 Weight 142.3 kg 141.8 kg General appearance: PRESENT: no acute distress - Breathing is comfortable on CPAP, morbidly obese Head exam: PRESENT: atraumatic Respiratory exam: PRESENT: decreased breath sounds, rhonchi Cardiovascular exam: PRESENT: RRR, +S1, +S2 GI/Abdominal exam: PRESENT: normal bowel sounds, soft Rectal exam: PRESENT: deferred Neurological exam: PRESENT: alert, awake, other - Limited exam due to respiratory status Results Laboratory Results: 03/28/20 10:58 03/28/20 10:58 03/28/20 03/28/20 10:58 10:58 WBC 17.3 H RBC 4.29 Hgb 9.8 L Hct 30.3 L MCV 71 L D MCH 22.9 L MCHC 32.4 RDW 26.6 H Plt Count 261 Seg Neutrophils % Not Reportable Sodium 140.6 Potassium 3.9 Chloride 97 L Carbon Dioxide 33 H Anion Gap 11 BUN 14 Creatinine 0.84 Est GFR ( Amer) > 60 Glucose 164 H Calcium 9.8 03/21/20 21:58 Troponin I < 0.012 Impressions: Chest X-Ray 03/22/20 00:00 IMPRESSION: Worsening patchy ill-defined opacities in both lungs, consistent with infectious/ inflammatory process. Assessment and Plan - Diagnosis (1) Acute hypoxemic respiratory failure Is this a current diagnosis for this admission?: Yes Plan: Due to COVID-19 pneumonia as above Nebulizer Supplemental oxygen Continue to self port with oxygen as needed (2) COVID-19 Is this a current diagnosis for this admission?: Yes (3) Morbid obesity with BMI of 50.0-59.9, adult Is this a current diagnosis for this admission?: Yes (4) Pneumonia due to COVID-19 virus Is this a current diagnosis for this admission?: Yes Plan: Tested positive, done on 03/17 Multiple visits to ED with worsening respiratory failure Requiring 2 L nasal cannula on admission to maintain oxygen saturation greater than 94% Appropriate supplements started Remdesivir Continue steroids (5) Schizophrenia Qualifiers: Schizophrenia type: unspecified Qualified Code(s): F20.9 - Schizophrenia, unspecified Is this a current diagnosis for this admission?: Yes Plan: Reconsult when appropriate - Plan Summary Summary: She continues on IV remdesivir. Psychiatry consultation is not appropriate at this time because the patient is not medically stable which would confound any evaluation. Creatinine is now normal. Acute kidney injury resolved. Continue Decadron. Continue oxygen support. Empiric antibiotics were started to treat any potential coexisting bacterial pneumonia. We transfused 2 units of packed red cells yesterday to assist with oxygen delivery. She is now on CPAP with a PEEP of 10 and 100% oxygen. She is receiving maximal treatment at this point but unfortunately her hypoxemia seems to be progressing. She cannot be reasoned with and she will try to focus on taking deeper breaths. I have added a small dose of morphine to see if it will help her relax and breathe more effectively. - Time Time Spent with patient: 15-24 minutes Medications reviewed and adjusted accordingly: Yes Anticipated Discharge Disposition: Home, Self Care Anticipated Discharge Timeframe: TBD
[2020-03-28] MEDS: ACETAMINOPHEN 325 MG TABLET PO PRN (14:17)
[2020-03-28] MEDS: MELATONIN 5 MG TABLET PO SCH (21:09)
[2020-03-29] MEDS: LORAZEPAM INJ 2 MG/1 ML VIAL IV PRN ×5 (04:00→20:58)
[2020-03-29] MEDS: HEPARIN SOD (PORCINE) 5,000 UNIT/ML 1 ML VIAL SUBCUT SCH ×3 (05:37→22:30)
[2020-03-29] MEDS: CEFTRIAXONE 1 GM/D5W RTU 1 GM/50 ML RTUPB IV SCH (07:59)
[2020-03-29] MEDS: MORPHINE SULFATE 10 MG/ML INJ IV PRN ×3 (08:40→22:31)
[2020-03-29] MEDS: FERROUS SULFATE 325 MG TABLET PO SCH ×2 (10:38→12:23)
[2020-03-29] MEDS: ZINC SULFATE 220 MG CAPSULE PO SCH ×2 (10:38→12:24)
[2020-03-29] MEDS: DOCUSATE SODIUM 100 MG CAPSULE PO SCH ×2 (10:38→12:23)
[2020-03-29] MEDS: ASCORBIC ACID 500 MG TABLET PO SCH ×3 (10:38→17:55)
[2020-03-29] MEDS: CHOLECALCIFEROL (D3) 1,000 UNIT (25 MCG) TABLET PO SCH ×2 (10:38→12:24)
[2020-03-29] MEDS: BENZONATATE 100 MG CAPSULE PO SCH ×4 (10:39→17:55)
[2020-03-29] MEDS: AZITHROMYCIN 500 MG in DEXTROSE 5%-WATER 250 ML IV SCH (10:39)
[2020-03-29] MEDS: DEXAMETHASONE SOD PHOSPHATE INJ 4 MG/1 ML VIAL IV SCH (10:39)
--- NOTE | 2020-03-29 13:39 | PDOC PROGRESS REPORT ---
Subjective Date:: 03/29/20 Subjective:: Patient's respiratory status remains tenuous. She remains hypoxic. She was rita germán on CPAP this morning due to hypoxemia. Being treated with IV remdesivir. Patient was also transfused with 2 units of packed red blood cells apparently to assist with hypoxemia white count is noted to be 17.3 and her H&H did respond to the blood transfusion she is likely acidotic. Behavioral health consultation will be done when patient more medically appropriate 03/29 patient remains on 100% oxygen on CPAP. She is slightly tachypneic otherwise appears to be resting Reason For Visit: COVID-19 PNEUMONIA, ACUTE HYPOXEMIC RESPIRATORY Physical Exam Vital Signs: Temp Pulse Resp BP Pulse Ox 98.9 F 121 H 23 H 131/76 H 94 03/29/20 12:00 03/29/20 12:00 03/29/20 12:00 03/29/20 12:00 03/29/20 12:00 Intake & Output 03/28/20 03/29/20 03/30/20 06:59 06:59 06:59 Intake Total 300 300 Output Total 1000 750 Balance -700 -450 Weight 141.8 kg 138.9 kg General appearance: PRESENT: no acute distress, morbidly obese, well-developed Head exam: PRESENT: atraumatic, normocephalic Eye exam: PRESENT: EOMI, PERRLA. ABSENT: scleral icterus Ear exam: PRESENT: normal external ear exam Neck exam: ABSENT: carotid bruit, JVD, lymphadenopathy, thyromegaly Respiratory exam: PRESENT: decreased breath sounds, tachypnea - Mild. ABSENT: rales, rhonchi, wheezes Cardiovascular exam: PRESENT: RRR. ABSENT: diastolic murmur, rubs, systolic murmur Pulses: PRESENT: normal dorsalis pedis pul Vascular exam: PRESENT: normal capillary refill GI/Abdominal exam: PRESENT: normal bowel sounds, soft. ABSENT: distended, guarding, mass, organolmegaly, rebound, tenderness Rectal exam: PRESENT: deferred Extremities exam: PRESENT: full ROM. ABSENT: calf tenderness, clubbing, pedal e zofia Neurological exam: PRESENT: alert, awake, other - Difficult to determine due to respiratory status. ABSENT: motor sensory deficit Psychiatric exam: ABSENT: homicidal ideation, suicidal ideation Skin exam: PRESENT: dry, intact, warm. ABSENT: cyanosis, rash Results Laboratory Results: 03/28/20 10:58 03/28/20 10:58 03/21/20 21:58 Troponin I < 0.012 Impressions: Chest X-Ray 03/22/20 00:00 IMPRESSION: Worsening patchy ill-defined opacities in both lungs, consistent with infectious/ inflammatory process. Assessment and Plan - Diagnosis (1) Acute hypoxemic respiratory failure Is this a current diagnosis for this admission?: Yes Plan: Due to COVID-19 pneumonia as above Nebulizer Supplemental oxygen Continue to support with oxygen as needed currently 100% FiO2 (2) COVID-19 Is this a current diagnosis for this admission?: Yes (3) Morbid obesity with BMI of 50.0-59.9, adult Is this a current diagnosis for this admission?: Yes (4) Pneumonia due to COVID-19 virus Is this a current diagnosis for this admission?: Yes Plan: Tested positive, done on 03/17 Multiple visits to ED with worsening respiratory failure Requiring 2 L nasal cannula on admission to maintain oxygen saturation greater than 94% Appropriate supplements started Remdesivir Continue steroids (5) Schizophrenia Qualifiers: Schizophrenia type: unspecified Qualified Code(s): F20.9 - Schizophrenia, unspecified Is this a current diagnosis for this admission?: Yes Plan: Reconsult psychiatry when appropriate - Plan Summary Summary: She continues on IV remdesivir. Psychiatry consultation is not appropriate at this time because the patient is not medically stable which would confound any evaluation. Creatinine is now normal. Acute kidney injury resolved. Continue Decadron. Continue oxygen support. Empiric antibiotics were started to treat any potential coexisting bacterial pneumonia. We transfused 2 units of packed red cells yesterday to assist with oxygen delivery. She is now on CPAP with a PEEP of 10 and 100% oxygen. She is receiving maximal treatment at this point but unfortunately her hypoxemia seems to be progressing. She cannot be reasoned with and she will try to focus on taking deeper breaths. I have added a small dose of morphine to see if it will help her relax and breathe more effectively. - Time Time Spent with patient: 15-24 minutes Medications reviewed and adjusted accordingly: Yes Anticipated Discharge Disposition: Home, Self Care Anticipated Discharge Timeframe: within 72 hours
[2020-03-29] MEDS: MELATONIN 5 MG TABLET PO SCH (22:27)
[2020-03-30] MEDS: AZITHROMYCIN 500 MG in DEXTROSE 5%-WATER 250 ML IV SCH ×2 (00:49→21:31)
[2020-03-30 05:29] LABS: HEMATOCRIT 28.9 % (36.0-47.0); HEMOGLOBIN 9.2 g/dL (12.0-15.5); MEAN CORPUSCULAR HEMOGLOBIN 22.8 pg (27.0-33.4); MEAN CORPUSCULAR HGB CONC 31.8 g/dL (32.0-36.0); MEAN CORPUSCULAR VOLUME 72 fl (80-97); PLATELET COUNT 231 10^3/uL (150-450); RED BLOOD COUNT 4.03 10^6/uL (3.72-5.28); WHITE BLOOD COUNT 14.9 10^3/uL (4.0-10.5)
[2020-03-30] MEDS: LORAZEPAM INJ 2 MG/1 ML VIAL IV PRN ×3 (05:55→16:04)
[2020-03-30] MEDS: HEPARIN SOD (PORCINE) 5,000 UNIT/ML 1 ML VIAL SUBCUT SCH ×4 (06:01→22:00)
[2020-03-30 06:03] LABS: ANION GAP 10 (5-19); BLOOD UREA NITROGEN 15 mg/dL (7-20); CALCIUM 9.7 mg/dL (8.4-10.2); CARBON DIOXIDE 33 mmol/L (22-30); CHLORIDE 99 mmol/L (98-107); GLUCOSE 107 mg/dL (75-110); POTASSIUM 4.4 mmol/L (3.6-5.0)
[2020-03-30 06:07] LABS: ABSOLUTE LYMPHOCYTES# (MANUAL) 0.7 10^3/uL (0.5-4.7); ABSOLUTE MONOCYTES # (MANUAL) 0.6 10^3/uL (0.1-1.4); BAND NEUTROPHILS % (MANUAL) 1 % (3-5); BASOPHILS % (MANUAL) 0 % (0-2); EOSINOPHILS % (MANUAL) 0 % (0-6); LYMPHOCYTES % (MANUAL) 5 % (13-45); MONOCYTES % (MANUAL) 4 % (3-13); SEGMENTED NEUTROPHILS % (MAN) 90 % (42-78); TOTAL CELLS COUNTED 100
[2020-03-30 06:09] LABS: HYPOCHROMASIA 1+; PLATELET COMMENT ADEQUATE; POLYCHROMASIA 1+; TEAR DROP CELLS SLIGHT; TOXIC GRANULATION 1+
[2020-03-30] MEDS: MORPHINE SULFATE 10 MG/ML INJ IV PRN ×3 (06:57→21:30)
[2020-03-30] MEDS: CEFTRIAXONE 1 GM/D5W RTU 1 GM/50 ML RTUPB IV SCH (08:38)
[2020-03-30] MEDS: FERROUS SULFATE 325 MG TABLET PO SCH (10:03)
[2020-03-30] MEDS: DOCUSATE SODIUM 100 MG CAPSULE PO SCH (10:03)
[2020-03-30] MEDS: BENZONATATE 100 MG CAPSULE PO SCH ×3 (10:04→17:17)
[2020-03-30] MEDS: ASCORBIC ACID 500 MG TABLET PO SCH ×2 (10:04→17:17)
[2020-03-30] MEDS: DEXAMETHASONE SOD PHOSPHATE INJ 4 MG/1 ML VIAL IV SCH (10:04)
[2020-03-30] MEDS: CHOLECALCIFEROL (D3) 1,000 UNIT (25 MCG) TABLET PO SCH (10:04)
[2020-03-30] MEDS: ZINC SULFATE 220 MG CAPSULE PO SCH (10:04)
[2020-03-30 15:19] LABS: APPEARANCE,URINE CLOUDY; BILIRUBIN,URINE NEGATIVE (NEGATIVE); COLOR,URINE AMBER; GLUCOSE, URINE NEGATIVE (NEGATIVE); KETONES,URINE 20 mg/dL (NEGATIVE); LEUKOCYTE ESTERASE,URINE TRACE (NEGATIVE); NITRITE,URINE NEGATIVE (NEGATIVE); PROTEIN,URINE 100 mg/dL (NEGATIVE); URINE SPECIFIC GRAVITY 1.033
--- NOTE | 2020-03-30 15:30 | PDOC PROGRESS REPORT ---
Subjective Date:: 03/30/20 Subjective:: Patient's respiratory status remains tenuous. She remains hypoxic. She was rita germán on CPAP this morning due to hypoxemia. Being treated with IV remdesivir. Patient was also transfused with 2 units of packed red blood cells apparently to assist with hypoxemia white count is noted to be 17.3 and her H&H did respond to the blood transfusion she is likely acidotic. Behavioral health consultation will be done when patient more medically appropriate 03/29 patient remains on 100% oxygen on CPAP. She is slightly tachypneic otherwise appears to be resting 03/30 Patient's condition remains critical, she remains tachypneic and on 100% FiO2 Reason For Visit: COVID-19 PNEUMONIA, ACUTE HYPOXEMIC RESPIRATORY Physical Exam Vital Signs: Temp Pulse Resp BP Pulse Ox 101.8 F H 137 H 40 H 129/71 H 95 03/30/20 12:39 03/30/20 12:39 03/30/20 12:56 03/30/20 08:35 03/30/20 12:56 Intake & Output 03/29/20 03/30/20 03/31/20 06:59 06:59 06:59 Intake Total 300 800 80 Output Total 750 750 Balance -450 50 80 Weight 138.9 kg 139.8 kg General appearance: PRESENT: mild distress, morbidly obese Head exam: PRESENT: atraumatic Eye exam: ABSENT: scleral icterus Neck exam: ABSENT: carotid bruit, JVD, lymphadenopathy, thyromegaly Respiratory exam: PRESENT: accessory muscle use, decreased breath sounds, rhonchi. ABSENT: rales, wheezes Cardiovascular exam: PRESENT: +S1, +S2, tachycardia. ABSENT: diastolic murmur, rubs, systolic murmur Pulses: PRESENT: normal dorsalis pedis pul Vascular exam: PRESENT: normal capillary refill GI/Abdominal exam: PRESENT: normal bowel sounds, soft. ABSENT: distended, guarding, mass, organolmegaly, rebound, tenderness Rectal exam: PRESENT: deferred Extremities exam: PRESENT: full ROM. ABSENT: calf tenderness, clubbing, pedal edema Neurological exam: PRESENT: alert, awake. ABSENT: motor sensory deficit Psychiatric exam: PRESENT: other. ABSENT: homicidal ideation, suicidal ideation Skin exam: PRESENT: dry, intact, warm. ABSENT: cyanosis, rash Results Laboratory Results: 03/30/20 04:30 03/30/20 04:30 03/30/20 03/30/20 03/30/20 04:30 04:30 14:38 WBC 14.9 H RBC 4.03 Hgb 9.2 L Hct 28.9 L MCV 72 L MCH 22.8 L MCHC 31.8 L RDW 28.0 H Plt Count 231 Seg Neutrophils % Not Reportable Sodium 141.9 Potassium 4.4 Chloride 99 Carbon Dioxide 33 H Anion Gap 10 BUN 15 Creatinine 0.76 Est GFR ( Amer) > 60 Glucose 107 Calcium 9.7 Urine Color RUBIN Urine Appearance CLOUDY Urine pH 5.0 Ur Specific Hubert 1.033 Urine Protein 100 H Urine Glucose (UA) NEGATIVE Urine Ketones 20 H Urine Blood LARGE H Urine Nitrite NEGATIVE Ur Leukocyte Esterase TRACE H Urine WBC (Auto) 34 Urine RBC (Auto) >182 03/21/20 21:58 Troponin I < 0.012 Impressions: Chest X-Ray 03/22/20 00:00 IMPRESSION: Worsening patchy ill-defined opacities in both lungs, consistent with infectious/ inflammatory process. Assessment and Plan - Diagnosis (1) Acute hypoxemic respiratory failure Is this a current diagnosis for this admission?: Yes (2) COVID-19 Is this a current diagnosis for this admission?: Yes (3) Morbid obesity with BMI of 50.0-59.9, adult Is this a current diagnosis for this admission?: Yes (4) Pneumonia due to COVID-19 virus Is this a current diagnosis for this admission?: Yes (5) Schizophrenia Qualifiers: Schizophrenia type: unspecified Qualified Code(s): F20.9 - Schizophrenia, unspecified Is this a current diagnosis for this admission?: Yes - Plan Summary Summary: She continues on IV remdesivir. Psychiatry consultation is not appropriate at this time because the patient is not medically stable which would confound any evaluation. Creatinine is now normal. Acute kidney injury resolved. Continue Decadron. Continue oxygen support. Empiric antibiotics were started to treat any potential coexisting bacterial pneumonia. We transfused 2 units of packed red cells yesterday to assist with oxygen delivery. She is now on CPAP with a PEEP of 10 and 100% oxygen. She is receiving maximal treatment at this point but unfortunately her hypoxemia seems to be progressing. She cannot be reasoned with and she will try to focus on taking deeper breaths. I have added a small dose of morphine to see if it will help her relax and breathe more effectively. 03/30 patient is still pretty tachypneic and tachycardic. She is also spiking fevers. She remains on 100% oxygen on CPAP. Patient's condition is very precarious and prognosis is guarded. We will continue with the IV dexamethasone continue with Tylenol ID or IV if available and I will also put on morphine IV as this seems to calm her down somewhat. I have also added low-dose Lopr essor to her regimen as she remains tachycardic - Time Time Spent with patient: 15-24 minutes Medications reviewed and adjusted accordingly: Yes Anticipated Discharge Disposition: Home with Home Health Anticipated Discharge Timeframe: TBD
[2020-03-30] MEDS ORDERED: ACETAMINOPHEN 650 MG SUPP.RECT PR PRN (15:42)
[2020-03-30] MEDS: METOPROLOL TARTRATE PF/INJ 5 MG/5 ML SDV IV SCH (17:02)
[2020-03-30] MEDS: MORPHINE SULFATE 10 MG/ML INJ IV SCH (17:45)
[2020-03-30] MEDS ORDERED: DEXTROSE 5%-1/2 NORMAL SALINE 1,000 ML IV PRN (18:53)
[2020-03-30] MEDS: MELATONIN 5 MG TABLET PO SCH (21:30)
[2020-03-30 23:08] LABS: ARTERIAL BLOOD BASE EXCESS 9.7 mmol/L; ARTERIAL BLOOD FIO2 100%; ARTERIAL BLOOD H2CO3 1.55 mmol/L (1.05-1.35); ARTERIAL BLOOD HCO3 34.9 mmol/L (20-24); ARTERIAL BLOOD O2 SATURATION 87.4 % (94-98); ARTERIAL BLOOD PCO2 51.5 mmHg (35-45); ARTERIAL BLOOD PH 7.45 (7.35-7.45); ARTERIAL BLOOD PO2 51.5 mmHg (80-100); ARTERIAL BLOOD TOTAL CO2 36.5 mmol/L (21-25)
[2020-03-31] MEDS: LORAZEPAM INJ 2 MG/1 ML VIAL IV PRN ×4 (00:45→19:31)
[2020-03-31] MEDS: MORPHINE SULFATE 10 MG/ML INJ IV SCH ×5 (00:46→23:26)
[2020-03-31] MEDS ORDERED: DEXTROSE 50%-WATER 25 GM/50 ML DISP.SYRIN IV PRN ×2 (01:52)
[2020-03-31] MEDS ORDERED: GLUCAGON,HUMAN RECOMB 1 MG INJ SUBCUT PRN (01:52)
[2020-03-31] MEDS ORDERED: DEXTROSE 40% GEL 15 GM TUBE PO PRN ×2 (01:52)
[2020-03-31] MEDS: METOPROLOL TARTRATE PF/INJ 5 MG/5 ML SDV IV SCH ×4 (05:26→19:31)
[2020-03-31] MEDS: HEPARIN SOD (PORCINE) 5,000 UNIT/ML 1 ML VIAL SUBCUT SCH ×3 (05:26→22:33)
[2020-03-31 06:23] LABS: HEMATOCRIT 27.3 % (36.0-47.0); HEMOGLOBIN 8.6 g/dL (12.0-15.5); MEAN CORPUSCULAR HEMOGLOBIN 22.9 pg (27.0-33.4); MEAN CORPUSCULAR HGB CONC 31.6 g/dL (32.0-36.0); MEAN CORPUSCULAR VOLUME 72 fl (80-97); RED BLOOD COUNT 3.78 10^6/uL (3.72-5.28); WHITE BLOOD COUNT 14.9 10^3/uL (4.0-10.5)
[2020-03-31 06:34] LABS: PARTIAL THROMBOPLASTIN TIME 31.3 SEC (23.5-35.8); PROTHROMBIN TIME 18.3 SEC (11.4-15.4)
[2020-03-31 06:44] LABS: ALBUMIN 3.3 g/dL (3.5-5.0); ALKALINE PHOSPHATASE 67 U/L (38-126); ANION GAP 8 (5-19); ASPARTATE AMINO TRANSFERASE 43 U/L (14-36); BILIRUBIN,DIRECT 0.3 mg/dL (0.0-0.4); BILIRUBIN,TOTAL 0.9 mg/dL (0.2-1.3); BLOOD UREA NITROGEN 21 mg/dL (7-20); CALCIUM 9.6 mg/dL (8.4-10.2); CARBON DIOXIDE 34 mmol/L (22-30); CHLORIDE 101 mmol/L (98-107); GLUCOSE 123 mg/dL (75-110); POTASSIUM 4.4 mmol/L (3.6-5.0); TOTAL PROTEIN 6.9 g/dL (6.3-8.2)
[2020-03-31 06:53] LABS: D-DIMER 7.15 ug/mL (0.00-0.50)
[2020-03-31 07:20] LABS: PLATELET COUNT 219 10^3/uL (150-450)
[2020-03-31] MEDS ORDERED: NALOXONE HCL INJ/PF 0.4 MG/1 ML SDV ONE (07:22)
[2020-03-31] MEDS ORDERED: ETOMIDATE INJ/PF 20 MG/10 ML SDV IV ONE (07:56)
[2020-03-31] MEDS ORDERED: ROCURONIUM BROMIDE INJ 50 MG/5 ML VIAL IV ONE ×2 (08:09→09:45)
[2020-03-31] MEDS ORDERED: SUCCINYLCHOLINE CHLORIDE INJ 200 MG/10 ML VIAL ONE (08:09)
[2020-03-31] MEDS ORDERED: MIDAZOLAM 2 MG/2 ML INJ ONE (08:11)
[2020-03-31] MEDS: PROPOFOL 1,000 MG/100 ML INFUS..BTL IV PRN ×6 (08:25→22:32)
[2020-03-31] MEDS ORDERED: PROPOFOL 1,000 MG/100 ML INFUS..BTL IV ONE ×2 (08:30→10:59)
--- NOTE | 2020-03-31 09:08 | PDOC PROGRESS REPORT ---
Subjective Date:: 03/31/20 Subjective:: Patient's respiratory status remains tenuous. She remains hypoxic. She was rita germán on CPAP this morning due to hypoxemia. Being treated with IV remdesivir. Patient was also transfused with 2 units of packed red blood cells apparently to assist with hypoxemia white count is noted to be 17.3 and her H&H did respond to the blood transfusion she is likely acidotic. Behavioral health consultation will be done when patient more medically appropriate 03/29 patient remains on 100% oxygen on CPAP. She is slightly tachypneic otherwise appears to be resting 03/30 Patient's condition remains critical, she remains tachypneic and on 100% FiO2 03/31 responded to rapid response this morning at 7:05 AM. Patient remains tachypneic and tachycardic. It appears she became much more hypoxemic and oxygen saturation remained pretty low despite attempts to increase it. She remains on 100% oxygen, CPAP. After further evaluation it was determined the patient should be transferred to the intensive care unit and I discussed with Dr. Frazier who agrees. Patient has been moved to the intensive care unit for likely a mechanical ventilation Reason For Visit: COVID-19 PNEUMONIA, ACUTE HYPOXEMIC RESPIRATORY Physical Exam Vital Signs: Temp Pulse Resp BP Pulse Ox 98.6 F 104 H 34 H 126/81 H 93 03/31/20 04:28 03/31/20 04:28 03/31/20 04:51 03/31/20 04:28 03/31/20 04:51 Intake & Output 03/30/20 03/31/20 04/01/20 06:59 06:59 06:59 Intake Total 800 330 Output Total 750 300 Balance 50 30 Weight 139.8 kg 139.8 kg General appearance: PRESENT: mild distress, morbidly obese, well-developed, well-nourished, other - CPAP in use Eye exam: PRESENT: PERRLA. ABSENT: scleral icterus Mouth exam: PRESENT: moist, tongue midline Neck exam: ABSENT: carotid bruit, JVD, lymphadenopathy, thyromegaly Respiratory exam: PRESENT: decreased breath sounds, rhonchi. ABSENT: rales, wheezes Cardiovascular exam: PRESENT: RRR. ABSENT: diastolic murmur, rubs, systolic murmur Pulses: PRESENT: normal dorsalis pedis pul Vascular exam: PRESENT: normal capillary refill GI/Abdominal exam: PRESENT: normal bowel sounds, soft. ABSENT: distended, guarding, mass, organolmegaly, rebound, tenderness Rectal exam: PRESENT: deferred Extremities exam: ABSENT: calf tenderness, clubbing, pedal edema Neurological exam: PRESENT: alert, awake. ABSENT: motor sensory deficit Psychiatric exam: PRESENT: other - Unable to evaluate. ABSENT: homicidal soto ation Skin exam: PRESENT: dry, warm. ABSENT: cyanosis, rash Results Laboratory Results: 03/31/20 06:01 03/31/20 06:01 03/30/20 03/30/20 03/31/20 14:38 21:00 06:01 WBC 14.9 H RBC 3.78 Hgb 8.6 L Hct 27.3 L MCV 72 L MCH 22.9 L MCHC 31.6 L RDW 28.0 H Plt Count 219 Carbonic Acid 1.55 H HCO3/H2CO3 Ratio 22:1 ABG pH 7.45 ABG pCO2 51.5 H ABG pO2 51.5 L ABG HCO3 34.9 H ABG O2 Saturation 87.4 L ABG Base Excess 9.7 FiO2 100% Sodium Potassium Chloride Carbon Dioxide Anion Gap BUN Creatinine Est GFR ( Amer) Glucose Calcium Total Bilirubin AST Alkaline Phosphatase Total Protein Albumin Urine Color RUBIN Urine Appearance CLOUDY Urine pH 5.0 Ur Specific [place] 1.033 Urine Protein 100 H Urine Glucose (UA) NEGATIVE Urine Ketones 20 H Urine Blood LARGE H Urine Nitrite NEGATIVE Ur Leukocyte Esterase TRACE H Urine WBC (Auto) 34 Urine RBC (Auto) >182 03/31/20 06:01 WBC RBC Hgb Hct MCV MCH MCHC RDW Plt Count Carbonic Acid HCO3/H2CO3 Ratio ABG pH ABG pCO2 ABG pO2 ABG HCO3 ABG O2 Saturation ABG Base Excess FiO2 Sodium 143.0 Potassium 4.4 Chloride 101 Carbon Dioxide 34 H Anion Gap 8 BUN 21 H Creatinine 0.80 Est GFR ( Amer) > 60 Glucose 123 H Calcium 9.6 Total Bilirubin 0.9 AST 43 H Alkaline Phosphatase 67 Total Protein 6.9 Albumin 3.3 L Urine Color Urine Appearance Urine pH Ur Specific [place] Urine Protein Urine Glucose (UA) Urine Ketones Urine Blood Urine Nitrite Ur Leukocyte Esterase Urine WBC (Auto) Urine RBC (Auto) 03/21/20 21:58 Troponin I < 0.012 Impressions: Chest X-Ray 03/22/20 00:00 IMPRESSION: Worsening patchy ill-defined opacities in both lungs, consistent with infectious/ inflammatory process. Assessment and Plan - Diagnosis (1) Acute hypoxemic respiratory failure Is this a current diagnosis for this admission?: Yes (2) COVID-19 Is this a current diagnosis for this admission?: Yes (3) Morbid obesity with BMI of 50.0-59.9, adult Is this a current diagnosis for this admission?: Yes (4) Pneumonia due to COVID-19 virus Is this a current diagnosis for this admission?: Yes (5) Schizophrenia Qualifiers: Schizophrenia type: unspecified Qualified Code(s): F20.9 - Schizophrenia, unspecified Is this a current diagnosis for this admission?: Yes - Plan Summary Summary: She continues on IV remdesivir. Psychiatry consultation is not appropriate at this time because the patient is not medically stable which would confound any evaluation. Creatinine is now normal. Acute kidney injury resolved. Continue Decadron. Continue oxygen support. Empiric antibiotics were started to treat any potential coexisting bacterial pneumonia. We transfused 2 units of packed red cells yesterday to assist with oxygen delivery. She is now on CPAP with a PEEP of 10 and 100% oxygen. She is receiving maximal treatment at this point but unfortunately her hypoxemia seems to be progressing. She cannot be reasoned with and she will try to focus on taking deeper breaths. I have added a small dose of morphine to see if it will help her relax and breathe more effectively. 03/30 patient is still pretty tachypneic and tachycardic. She is also spiking fevers. She remains on 100% oxygen on CPAP. Patient's condition is very precarious and prognosis is guarded. We will continue with the IV dexamethasone continue with Tylenol CA or IV if available and I will also put on morphine IV as this seems to calm her down somewhat. I have also added low-dose Lopressor to her regimen as she remains tachycardic 03/31She has not had a chest x-ray since the and ABG done yesterday evening revealed persistent hypoxemia with hypercapnia she remains on dexamethasone 6 mg IV daily. She was started on IV fluid yesterday as her oral intake was very poor due to inability to remove the CPAP for any appreciable time before becoming more hypoxemic. Due to patient's critical condition she is being transferred to the intensive care unit. Prognosis remains very poor - Time Time Spent with patient: 35 or more minutes Medications reviewed and adjusted accordingly: Yes Anticipated Discharge Disposition: Home, Self Care Anticipated Discharge Timeframe: TBD
--- NOTE | 2020-03-31 09:55 | RADIOLOGY REPORT (SQ) ---
EXAM DESCRIPTION: CHEST SINGLE VIEW IMAGES COMPLETED DATE/TIME: 03/31/2020 9:38 am REASON FOR STUDY: intubation and ngt placement COMPARISON: 03/22/2020. EXAM PARAMETERS: NUMBER OF VIEWS: One view. TECHNIQUE: Single frontal radiographic view of the chest acquired. RADIATION DOSE: NA LIMITATIONS: None. FINDINGS: LUNGS AND PLEURA: No pneumothorax. Diffuse bilateral airspace disease. MEDIASTINUM AND HILAR STRUCTURES: No masses. Contour normal. HEART AND VASCULAR STRUCTURES: Cardiomegaly unchanged. BONES: No acute findings. HARDWARE: Endotracheal tube, tip located 4 cm proximal to the daisy. Nasogastric tube, tip in the s tomach. Central line, tip at the cavoatrial junction. OTHER: No other significant finding. IMPRESSION: 1. LIFE LINES DESCRIBED. SATISFACTORY POSITION. NO PNEUMOTHORAX. 2. CARDIOMEGALY AND DIFFUSE BILATERAL AIRSPACE DISEASE. TECHNICAL DOCUMENTATION: JOB ID: [id number] 2010 [email or web address]- All Rights Reserved Reading location - IP/workstation name: [email or web address]
[2020-03-31 10:29] LABS: ARTERIAL BLOOD BASE EXCESS 8.2 mmol/L; ARTERIAL BLOOD FIO2 100%; ARTERIAL BLOOD H2CO3 1.74 mmol/L (1.05-1.35); ARTERIAL BLOOD HCO3 34.6 mmol/L (20-24); ARTERIAL BLOOD O2 SATURATION 79.6 % (94-98); ARTERIAL BLOOD PCO2 57.9 mmHg (35-45); ARTERIAL BLOOD PH 7.39 (7.35-7.45); ARTERIAL BLOOD TOTAL CO2 36.4 mmol/L (21-25)
[2020-03-31] MEDS ORDERED: RINGERS SOLUTION,LACTATED 500 ML IV ONE (10:30)
[2020-03-31] MEDS: BENZONATATE 100 MG CAPSULE PO SCH ×3 (11:00→19:34)
[2020-03-31] MEDS: RINGERS SOLUTION,LACTATED 1,000 ML IV PRN ×2 (11:30→20:17)
[2020-03-31 11:32] LABS: ARTERIAL BLOOD BASE EXCESS 6.7 mmol/L; ARTERIAL BLOOD H2CO3 1.49 mmol/L (1.05-1.35); ARTERIAL BLOOD O2 SATURATION 93.2 % (94-98); ARTERIAL BLOOD PCO2 49.4 mmHg (35-45); ARTERIAL BLOOD PH 7.43 (7.35-7.45); ARTERIAL BLOOD PO2 65.8 mmHg (80-100); ARTERIAL BLOOD TOTAL CO2 33.5 mmol/L (21-25)
[2020-03-31 11:33] LABS: ARTERIAL BLOOD FIO2 100%
[2020-03-31] MEDS: NORMAL SALINE 500 ML with ROCURONIUM BROMIDE 500 MG IV PRN ×4 (11:54→22:33)
[2020-03-31] MEDS: DOCUSATE SODIUM 100 MG CAPSULE PO SCH (11:55)
[2020-03-31] MEDS: CEFTRIAXONE 1 GM/D5W RTU 1 GM/50 ML RTUPB IV SCH (11:55)
[2020-03-31] MEDS: DEXAMETHASONE SOD PHOSPHATE INJ 4 MG/1 ML VIAL IV SCH (11:55)
[2020-03-31] MEDS: CHOLECALCIFEROL (D3) 1,000 UNIT (25 MCG) TABLET PO SCH (11:56)
[2020-03-31] MEDS: FERROUS SULFATE 325 MG TABLET PO SCH (11:56)
[2020-03-31] MEDS: ZINC SULFATE 220 MG CAPSULE PO SCH (11:56)
[2020-03-31] MEDS: ASCORBIC ACID 500 MG TABLET PO SCH ×2 (11:56→19:34)
[2020-03-31] MEDS: ACETAMINOPHEN 325 MG TABLET PO PRN (11:57)
[2020-03-31 19:47] LABS: ARTERIAL BLOOD BASE EXCESS 4.5 mmol/L; ARTERIAL BLOOD H2CO3 1.55 mmol/L (1.05-1.35); ARTERIAL BLOOD HCO3 30.3 mmol/L (20-24); ARTERIAL BLOOD O2 SATURATION 85.1 % (94-98); ARTERIAL BLOOD PCO2 51.6 mmHg (35-45); ARTERIAL BLOOD PH 7.39 (7.35-7.45); ARTERIAL BLOOD TOTAL CO2 31.9 mmol/L (21-25)
[2020-03-31 19:52] LABS: ARTERIAL BLOOD FIO2 80%
[2020-03-31] MEDS ORDERED: VANCOMYCIN HCL INJ 1000 MG VIAL INJ PRN (21:09)
[2020-03-31] MEDS ORDERED: CEFEPIME 2 GM/D5W RTU 2 GM/50 ML RTUPB IV SCH (22:00)
[2020-03-31] MEDS ORDERED: CEFEPIME 2 GM/D5W RTU 2 GM/50 ML RTUPB IV ONE (22:09)
[2020-03-31] MEDS: FAMOTIDINE INJ/PF 20 MG/2 ML SDV IV SCH (22:33)
[2020-03-31] MEDS: MELATONIN 5 MG TABLET PO SCH (22:33)
[2020-03-31] MEDS ORDERED: WATER IV ONE (23:00)
[2020-03-31] MEDS ORDERED: DEXTROSE 5% IV ONE (23:00)
[2020-03-31] MEDS ORDERED: VANCOMYCIN HCL IV ONE (23:00)
[2020-04-01] MEDS: PROPOFOL 1,000 MG/100 ML INFUS..BTL IV PRN ×9 (00:51→22:19)
[2020-04-01 03:48] LABS: HEMATOCRIT 25.7 % (36.0-47.0); HEMOGLOBIN 8.2 g/dL (12.0-15.5); MEAN CORPUSCULAR HEMOGLOBIN 23.2 pg (27.0-33.4); MEAN CORPUSCULAR VOLUME 73 fl (80-97); PLATELET COUNT 192 10^3/uL (150-450); RED BLOOD COUNT 3.54 10^6/uL (3.72-5.28)
[2020-04-01 04:05] LABS: ABSOLUTE LYMPHOCYTES# (MANUAL) 0.5 10^3/uL (0.5-4.7); ABSOLUTE MONOCYTES # (MANUAL) 0.9 10^3/uL (0.1-1.4); BASOPHILS % (MANUAL) 0 % (0-2); EOSINOPHILS % (MANUAL) 0 % (0-6); LYMPHOCYTES % (MANUAL) 3 % (13-45); MONOCYTES % (MANUAL) 6 % (3-13); SEGMENTED NEUTROPHILS % (MAN) 91 % (42-78); TOTAL CELLS COUNTED 100
[2020-04-01 04:07] LABS: ANISOCYTOSIS 4+; OVALOCYTES 1+; PLATELET COMMENT ADEQUATE; POIKILOCYTOSIS 2+; POLYCHROMASIA 3+; TARGET CELLS 1+; TEAR DROP CELLS 1+
[2020-04-01 04:16] LABS: C-REACTIVE PROTEIN 162.2 mg/L (<10.0)
[2020-04-01] MEDS: RINGERS SOLUTION,LACTATED 1,000 ML IV PRN ×3 (04:21→22:26)
[2020-04-01 04:29] LABS: FERRITIN 49.6 ng/mL (6.2-137.0)
[2020-04-01] MEDS: METOPROLOL TARTRATE PF/INJ 5 MG/5 ML SDV IV SCH ×3 (05:33→11:00)
[2020-04-01] MEDS: HEPARIN SOD (PORCINE) 5,000 UNIT/ML 1 ML VIAL SUBCUT SCH ×3 (05:33→22:07)
[2020-04-01] MEDS: MORPHINE SULFATE 10 MG/ML INJ IV SCH ×3 (05:34→18:30)
[2020-04-01] MEDS: METHYLPREDNISOLONE INJ 40 MG/1 ML SDV IV SCH ×3 (07:35→22:07)
[2020-04-01 08:52] LABS: ANION GAP 10 (5-19); BLOOD UREA NITROGEN 19 mg/dL (7-20); CALCIUM 9.4 mg/dL (8.4-10.2); CARBON DIOXIDE 30 mmol/L (22-30); CHLORIDE 99 mmol/L (98-107); GLUCOSE 140 mg/dL (75-110); POTASSIUM 4.5 mmol/L (3.6-5.0)
[2020-04-01] MEDS: IPRATROPIUM/ALBUTEROL 0.5-2.5 MG/3 ML AMPUL NEB PRN ×2 (09:19→15:54)
[2020-04-01] MEDS: FAMOTIDINE INJ/PF 20 MG/2 ML SDV IV SCH ×2 (09:45→22:08)
[2020-04-01] MEDS ORDERED: VANCOMYCIN HCL INJ 1000 MG VIAL IV SCH (10:00)
[2020-04-01] MEDS ORDERED: CEFEPIME 2 GM/D5W RTU 2 GM/50 ML RTUPB IV SCH (10:00)
[2020-04-01 10:31] LABS: ANION GAP 8 (5-19); BLOOD UREA NITROGEN 17 mg/dL (7-20); CALCIUM 9.7 mg/dL (8.4-10.2); CARBON DIOXIDE 32 mmol/L (22-30); CHLORIDE 100 mmol/L (98-107); GLUCOSE 141 mg/dL (75-110); POTASSIUM 4.6 mmol/L (3.6-5.0)
[2020-04-01] MEDS: CEFEPIME HCL 2 GM in DEXTROSE 5%-WATER 50 ML IV SCH ×2 (10:57→22:07)
--- NOTE | 2020-04-01 11:11 | RADIOLOGY REPORT (SQ) ---
EXAM DESCRIPTION: CHEST SINGLE VIEW IMAGES COMPLETED DATE/TIME: 04/01/2020 10:50 am REASON FOR STUDY: acute resp. failure COMPARISON: 03/31/2020 NUMBER OF VIEWS: One view. TECHNIQUE: Single frontal radiographic image of the chest acquired. LIMITATIONS: None. FINDINGS: ENDOTRACHEAL TUBE: Appropriate location. OTHER SUPPORT DEVICES: Left IJ central venous catheter and nasogastric catheter appear in similar pos itions. CHANGES IN RADIOGRAPHIC FINDINGS: Slight improved aeration, overall similar appearance. HARDWARE: None in the chest. OTHER: No other significant finding. IMPRESSION: Slight improved aeration, overall similar appearance. TECHNICAL DOCUMENTATION: JOB ID: [id number] [employer]- All Rights Reserved Reading location - IP/workstation name: [email or web address]
--- NOTE | 2020-04-01 11:27 | PDOC CRITICAL CARE PROG REPORT ---
General Date:: 04/01/20 ICU Day:: 2 Ventilator Day:: 2 Hospital Day:: 10 Resuscitation Status: Full Code Events in the past 12 to 24 Hours:: 04/01 The patient was brought ot the ICU yesterday with severe sob and hypoxemia She had to be urgently intubayted. She was proned late in the day and overnight. Has just been resupinated. Has been paralyzed and sedated. requiring fairly elevated FI02s. The patient is on PCV ventialtion with IP of about 35. requiring farliy high Fi02s. Reason for ICU Addmission:: acute respiratory failure, covid -19 pneumonia Physical Exam Vital Signs: Temp Pulse Resp BP Pulse Ox 99.1 F 107 H 34 H 126/81 H 94 04/01/20 07:41 04/01/20 08:00 03/31/20 04:51 03/31/20 04:28 04/01/20 09:36 Intake & Output 03/31/20 04/01/20 04/02/20 06:59 06:59 06:59 Intake Total 1330 3715 513 Output Total 300 1525 140 Balance 1030 2190 373 Weight 139.8 kg 142.6 kg Weight/Height Weight 142.6 kg Height 5 ft 3 in Laboratory/Radiographs Laboratory Results: 04/01/20 03:21 04/01/20 09:00 03/31/20 03/31/20 03/31/20 06:01 10:40 17:38 WBC RBC Hgb Hct MCV MCH MCHC RDW Plt Count Seg Neutrophils % Carbonic Acid 1.49 H HCO3/H2CO3 Ratio 21:1 ABG pH 7.43 ABG pCO2 49.4 H ABG pO2 65.8 L ABG HCO3 32.0 H ABG O2 Saturation 93.2 L ABG Base Excess 6.7 FiO2 100% Sodium Cancelled Potassium Cancelled Chloride Cancelled Carbon Dioxide Cancelled Anion Gap Cancelled BUN Cancelled Creatinine Cancelled Est GFR ( Amer) Cancelled Est GFR (Non-Af Amer) Cancelled Glucose Cancelled Calcium Cancelled Ferritin C-Reactive Protein Triglycerides 147 03/31/20 04/01/20 04/01/20 19:38 03:21 03:21 WBC 15.0 H RBC 3.54 L Hgb 8.2 L Hct 25.7 L MCV 73 L MCH 23.2 L MCHC 32.0 RDW 28.0 H Plt Count 192 Seg Neutrophils % Not Reportable Carbonic Acid 1.55 H HCO3/H2CO3 Ratio 19:1 ABG pH 7.39 ABG pCO2 51.6 H ABG pO2 51.0 L ABG HCO3 30.3 H ABG O2 Saturation 85.1 L ABG Base Excess 4.5 FiO2 80% Sodium Potassium Chloride Carbon Dioxide Anion Gap BUN Creatinine Est GFR ( Amer) Est GFR (Non-Af Amer) Glucose Calcium Ferritin 49.60 C-Reactive Protein 162.2 H Triglycerides 04/01/20 04/01/20 03:21 09:00 WBC RBC Hgb Hct MCV MCH MCHC RDW Plt Count Seg Neutrophils % Carbonic Acid HCO3/H2CO3 Ratio ABG pH ABG pCO2 ABG pO2 ABG HCO3 ABG O2 Saturation ABG Base Excess FiO2 Sodium 139.4 139.9 Potassium 4.5 4.6 Chloride 99 100 Carbon Dioxide 30 32 H Anion Gap 10 8 BUN 19 17 Creatinine 0.77 0.76 Est GFR ( Amer) > 60 > 60 Est GFR (Non-Af Amer) Glucose 140 H 141 H Calcium 9.4 9.7 Ferritin C-Reactive Protein Triglycerides 03/21/20 21:58 Troponin I < 0.012 Impressions: Chest X-Ray 04/01/20 10:00 IMPRESSION: Slight improved aeration, overall similar appearance. Assessment and Plan - Diagnosis (1) Acute hypoxemic respiratory failure Is this a current diagnosis for this admission?: Yes Plan: Due to COVID-19 pneumonia as above Nebulizer Supplemental oxygen Continue to support with oxygen as needed currently 100% FiO2. 04/01 As noted thepatient presented with sever hypoxemia and accessory resp. mm. uuse. She wa s itynubated quickly. Is said to be wheexing actively so she is on steroids, We just turned her supine after a about 14 hours of proning. outlook for recovPatiejery guarded. Patioent is on cefipme and vancycin. Trachela aspiated pending (2) Morbid obesity with BMI of 50.0-59.9, adult Is this a current diagnosis for this admission?: Yes (3) Pneumonia Qualifiers: Pneumonia type: due to unspecified organism Laterality: bilateral Is this a current diagnosis for this admission?: Yes Critical Time Critical Time (minutes): 40 Level of Care: ICU -: 1. The care of a critical patient is a dynamic process. This note is a sales representative malt [employer]ors synopsis but static in nature. The timeframe for treatments given in order is not necessarily the actual time these treatments may have been done. 2. This patient requires critical care secondary to ongoing requirements for therapy not offered or safe outside the critical care environment. Transfer to a lower level of care will result in altered life or limb morbidity and mortality. 3. Multidisciplinary rounds completed. 4. ABCDE bundle addressed.
[2020-04-01] MEDS ORDERED: NORMAL SALINE INJ/PF 0.9% 10 ML SDV IV PRN (11:45)
--- NOTE | 2020-04-01 11:49 | Operative Report ---
Bedside Procedure - History of Present Illness Indication for Procedure: IV access psot QUARTER BACKER Date: 03/31/20 Provider: KATERINE ALEXANDER - Central Line Left Internal jugular Consent obtained: No - Emergency procedure post QUARTER BACKER Central line pre-insertion: Sterile PPE donned, Chloraprep applied Central line lumen type: Triple Anesthetic type: 2% Lidocaine Ultrasound guided: Yes Line secured with sutures: Yes Central line post-insertion: Blood return from lumens, Biopatch applied, Sutured, Sterile dressing applied, Position confirmed w/ CXR Number of attempts: 2 Complications: No
--- NOTE | 2020-04-01 11:53 | Operative Report ---
Bedside Procedure - History of Present Illness Indication for Procedure: Acute resp. failure Date: 03/31/20 Provider: KATERINE ALEXANDER - Intubation Orotracheal Medications: Etomidate, Other - Rocuronium Intubation method: Orotracheal Blade size: 4 Equipment used: Glidescope ETT size: 8.0 ETT secured at: Teeth ETT secured at (cm): 24 Post Intubation Xray: Yes - tube in god position Intubation Complications: No complications
[2020-04-01] MEDS: VANCOMYCIN HCL 1,500 MG in DEXTROSE 5%-WATER 250 ML IV SCH ×2 (13:00→23:28)
[2020-04-01] MEDS: LORAZEPAM INJ 2 MG/1 ML VIAL IV PRN (14:37)
[2020-04-01] MEDS: NORMAL SALINE 500 ML with ROCURONIUM BROMIDE 500 MG IV PRN ×2 (15:58)
[2020-04-01] MEDS: CHOLECALCIFEROL (D3) 1,000 UNIT (25 MCG) TABLET PO SCH (16:15)
[2020-04-01] MEDS: ASCORBIC ACID 500 MG TABLET PO SCH (16:15)
[2020-04-01] MEDS: ZINC SULFATE 220 MG CAPSULE PO SCH (16:15)
[2020-04-01] MEDS: DOCUSATE SODIUM 100 MG CAPSULE PO SCH (16:16)
[2020-04-01] MEDS: BENZONATATE 100 MG CAPSULE PO SCH (16:16)
[2020-04-01] MEDS: FERROUS SULFATE 325 MG TABLET PO SCH (16:16)
[2020-04-01] MEDS: FENTANYL CITRATE/PF 600 MCG/60 ML BAG IV PRN ×3 (16:33→23:40)
[2020-04-01] MEDS: LABETALOL HCL INJ 20 MG/4 ML DISP.SYRIN IV PRN (17:40)
[2020-04-01 18:14] LABS: ARTERIAL BLOOD BASE EXCESS 3.7 mmol/L; ARTERIAL BLOOD H2CO3 1.62 mmol/L (1.05-1.35); ARTERIAL BLOOD O2 SATURATION 71.9 % (94-98); ARTERIAL BLOOD PCO2 53.9 mmHg (35-45); ARTERIAL BLOOD PH 7.36 (7.35-7.45); ARTERIAL BLOOD TOTAL CO2 31.7 mmol/L (21-25)
[2020-04-01 18:16] LABS: ARTERIAL BLOOD FIO2 70%; ARTERIAL BLOOD PO2 39.8 mmHg (80-100)
[2020-04-01 18:52] LABS: ARTERIAL BLOOD BASE EXCESS 1.8 mmol/L; ARTERIAL BLOOD HCO3 28.1 mmol/L (20-24); ARTERIAL BLOOD O2 SATURATION 71.9 % (94-98); ARTERIAL BLOOD PH 7.34 (7.35-7.45); ARTERIAL BLOOD TOTAL CO2 29.8 mmol/L (21-25)
[2020-04-01 18:53] LABS: ARTERIAL BLOOD FIO2 70%
[2020-04-01 18:56] LABS: ARTERIAL BLOOD PO2 40.5 mmHg (80-100)
[2020-04-02] MEDS: PROPOFOL 1,000 MG/100 ML INFUS..BTL IV PRN ×11 (00:35→22:50)
[2020-04-02] MEDS: NORMAL SALINE 500 ML with ROCURONIUM BROMIDE 500 MG IV PRN ×8 (00:40→21:37)
[2020-04-02] MEDS: MORPHINE SULFATE 10 MG/ML INJ IV SCH ×4 (00:48→17:45)
[2020-04-02] MEDS ORDERED: GLUCAGON,HUMAN RECOMB 1 MG INJ IM PRN (00:58)
[2020-04-02] MEDS ORDERED: DEXTROSE 40% GEL 15 GM TUBE PO PRN ×2 (00:58)
[2020-04-02] MEDS ORDERED: DEXTROSE 50%-WATER 25 GM/50 ML DISP.SYRIN IV PRN ×2 (00:58)
[2020-04-02] MEDS ORDERED: INSULIN REG, HUMAN 100 UNIT/ML 3 ML VIAL (PYX) ONE (01:06)
[2020-04-02] MEDS: INSULIN REG, HUMAN 100 UNIT/ML 3 ML VIAL (PYX) SUBCUT SCH ×4 (01:10→18:18)
[2020-04-02] MEDS: RINGERS SOLUTION,LACTATED 1,000 ML IV PRN ×2 (03:15→16:56)
[2020-04-02] MEDS: LABETALOL HCL INJ 20 MG/4 ML DISP.SYRIN IV PRN (05:09)
[2020-04-02] MEDS: METHYLPREDNISOLONE INJ 40 MG/1 ML SDV IV SCH ×3 (06:42→21:23)
[2020-04-02] MEDS: HEPARIN SOD (PORCINE) 5,000 UNIT/ML 1 ML VIAL SUBCUT SCH ×3 (06:42→21:22)
[2020-04-02] MEDS: FAMOTIDINE INJ/PF 20 MG/2 ML SDV IV SCH ×2 (09:32→21:23)
[2020-04-02] MEDS: CEFEPIME HCL 2 GM in DEXTROSE 5%-WATER 50 ML IV SCH ×2 (09:43→21:22)
[2020-04-02 09:53] LABS: ARTERIAL BLOOD BASE EXCESS 3.9 mmol/L; ARTERIAL BLOOD O2 SATURATION 67.1 % (94-98); ARTERIAL BLOOD PCO2 53.2 mmHg (35-45); ARTERIAL BLOOD PH 7.37 (7.35-7.45); ARTERIAL BLOOD TOTAL CO2 31.6 mmol/L (21-25)
[2020-04-02 09:59] LABS: ARTERIAL BLOOD PO2 36.6 mmHg (80-100)
[2020-04-02] MEDS ORDERED: ASCORBIC ACID 1000 MG PO SCH (10:00)
[2020-04-02] MEDS ORDERED: ZINC 50 MG PO SCH (10:00)
[2020-04-02] MEDS ORDERED: CHOLECALCIFEROL 75 MCG PO SCH (10:00)
[2020-04-02] MEDS: FENTANYL CITRATE/PF 600 MCG/60 ML BAG IV PRN ×2 (10:45→21:14)
[2020-04-02] MEDS ORDERED: CHOLECALCIFEROL (D3) 1,000 UNIT (25 MCG) TABLET PO SCH (11:00)
[2020-04-02] MEDS ORDERED: ZINC SULFATE 220 MG CAPSULE PO SCH (11:00)
[2020-04-02] MEDS ORDERED: ONDANSETRON 4 MG TAB.RAPDIS NG PRN (12:00)
[2020-04-02] MEDS: VANCOMYCIN HCL 1,500 MG in DEXTROSE 5%-WATER 250 ML IV SCH ×2 (12:40→22:50)
[2020-04-02] MEDS: ZINC SULFATE 220 MG CAPSULE NG SCH (12:41)
[2020-04-02] MEDS: CHOLECALCIFEROL (D3) 1,000 UNIT (25 MCG) TABLET NG SCH (12:42)
[2020-04-02] MEDS: ASCORBIC ACID 500 MG TABLET NG SCH (18:14)
[2020-04-02 18:37] LABS: ARTERIAL BLOOD BASE EXCESS 3.4 mmol/L; ARTERIAL BLOOD H2CO3 1.59 mmol/L (1.05-1.35); ARTERIAL BLOOD HCO3 29.4 mmol/L (20-24); ARTERIAL BLOOD O2 SATURATION 88.8 % (94-98); ARTERIAL BLOOD PCO2 52.9 mmHg (35-45); ARTERIAL BLOOD PH 7.36 (7.35-7.45); ARTERIAL BLOOD PO2 58.2 mmHg (80-100)
[2020-04-02 18:39] LABS: ARTERIAL BLOOD FIO2 100%
[2020-04-03] MEDS: PROPOFOL 1,000 MG/100 ML INFUS..BTL IV PRN ×10 (01:15→23:08)
[2020-04-03] MEDS: INSULIN REG, HUMAN 100 UNIT/ML 3 ML VIAL (PYX) SUBCUT SCH ×5 (03:04→23:01)
[2020-04-03] MEDS: NORMAL SALINE 500 ML with ROCURONIUM BROMIDE 500 MG IV PRN ×6 (03:08→18:23)
[2020-04-03] MEDS: FENTANYL CITRATE/PF 600 MCG/60 ML BAG IV PRN ×3 (04:50→18:55)
[2020-04-03 05:05] LABS: ALKALINE PHOSPHATASE 61 U/L (38-126); ANION GAP 8 (5-19); ASPARTATE AMINO TRANSFERASE 72 U/L (14-36); BILIRUBIN,DIRECT 0.8 mg/dL (0.0-0.4); BILIRUBIN,TOTAL 1.2 mg/dL (0.2-1.3); BLOOD UREA NITROGEN 17 mg/dL (7-20); CALCIUM 9.3 mg/dL (8.4-10.2); CARBON DIOXIDE 31 mmol/L (22-30); CHLORIDE 103 mmol/L (98-107); GLUCOSE 231 mg/dL (75-110); TOTAL PROTEIN 6.2 g/dL (6.3-8.2); TRIGLYCERIDES 333 mg/dL (<150)
[2020-04-03 05:06] LABS: HEMATOCRIT 25.8 % (36.0-47.0); HEMOGLOBIN 8.2 g/dL (12.0-15.5); MEAN CORPUSCULAR HEMOGLOBIN 23.5 pg (27.0-33.4); MEAN CORPUSCULAR HGB CONC 31.5 g/dL (32.0-36.0); MEAN CORPUSCULAR VOLUME 75 fl (80-97); PLATELET COUNT 213 10^3/uL (150-450); RED BLOOD COUNT 3.46 10^6/uL (3.72-5.28); RED CELL DISTRIBUTION WIDTH 28.1 % (11.5-14.0); WHITE BLOOD COUNT 12.5 10^3/uL (4.0-10.5)
[2020-04-03 05:34] LABS: ABSOLUTE LYMPHOCYTES# (MANUAL) 0.9 10^3/uL (0.5-4.7); ABSOLUTE MONOCYTES # (MANUAL) 0.5 10^3/uL (0.1-1.4); BAND NEUTROPHILS % (MANUAL) 1 % (3-5); BASOPHILS % (MANUAL) 0 % (0-2); EOSINOPHILS % (MANUAL) 0 % (0-6); LYMPHOCYTES % (MANUAL) 7 % (13-45); MONOCYTES % (MANUAL) 4 % (3-13); SEGMENTED NEUTROPHILS % (MAN) 88 % (42-78); TOTAL CELLS COUNTED 100
[2020-04-03 05:37] LABS: ANISOCYTOSIS 4+; OVALOCYTES 3+; POIKILOCYTOSIS 4+; SCHISTOCYTES 2+; TARGET CELLS 2+; TEAR DROP CELLS 3+; TOXIC GRANULATION SLIGHT
[2020-04-03 05:38] LABS: PLATELET COMMENT ADEQUATE
[2020-04-03] MEDS: METHYLPREDNISOLONE INJ 40 MG/1 ML SDV IV SCH ×3 (06:12→22:15)
[2020-04-03] MEDS: HEPARIN SOD (PORCINE) 5,000 UNIT/ML 1 ML VIAL SUBCUT SCH ×3 (06:12→22:15)
--- NOTE | 2020-04-03 08:34 | RADIOLOGY REPORT (SQ) ---
EXAM DESCRIPTION: CHEST SINGLE VIEW IMAGES COMPLETED DATE/TIME: 04/03/2020 6:20 am REASON FOR STUDY: acute resp. failure COMPARISON: Chest films 03/31/2020, 04/01/2020 EXAM PARAMETERS: NUMBER OF VIEWS: One view. TECHNIQUE: Single frontal radiographic view of the chest acquired. RADIATION DOSE: NA LIMITATIONS: None. FINDINGS: LUNGS AND PLEURA: No change in diffuse bilateral alveolar and interstitial infiltrates com pared to 04/01/2020. No pleural effusion. No gross pneumothorax. MEDIASTINUM AND HILAR STRUCTURES: No masses. Contour normal. HEART AND VASCULAR STRUCTURES: Stable cardiomegaly BONES: No acute findings. HARDWARE: Endotracheal tube tip 4 cm above the daisy. Nasogastric tube tip and side port below the hemidiaphragms. Left jugular central venous catheter tip over the superior vena cava OTHER: No other significant finding. IMPRESSION: No change in diffuse bilateral alveolar and interstitial infiltrates Stable cardiomegaly Tubes and lines in good positioning TECHNICAL DOCUMENTATION: JOB ID: [id number] 2010 [employer]- All Rights Reserved Reading location - IP/workstation name: [email or web address]
[2020-04-03] MEDS: FAMOTIDINE INJ/PF 20 MG/2 ML SDV IV SCH ×2 (09:45→22:15)
[2020-04-03] MEDS: ZINC SULFATE 220 MG CAPSULE NG SCH (09:45)
[2020-04-03] MEDS: ASCORBIC ACID 500 MG TABLET NG SCH ×2 (09:45→17:48)
[2020-04-03] MEDS: CEFEPIME HCL 2 GM in DEXTROSE 5%-WATER 50 ML IV SCH ×2 (09:45→22:15)
[2020-04-03] MEDS: CHOLECALCIFEROL (D3) 1,000 UNIT (25 MCG) TABLET NG SCH (09:45)
[2020-04-03] MEDS: VANCOMYCIN HCL 1,500 MG in DEXTROSE 5%-WATER 250 ML IV SCH ×2 (10:53→23:05)
--- NOTE | 2020-04-03 12:47 | PDOC CRITICAL CARE PROG REPORT ---
General Date:: 04/03/20 ICU Day:: 2 Ventilator Day:: 2 Hospital Day:: 13 Resuscitation Status: Full Code Events in the past 12 to 24 Hours:: Intubated, proned and now supinated. 04/03 Still on 100% FIO2. On rocuronium. Still supinated Not able to make much vent progress. TF started. Review of systems relevant to events:: Pulmonary Reason for ICU Addmission:: acute respiratory failure, covid -19 pneumonia, intubated. - Medications: Medications reviewed and adjusted accordingly: Yes Vasopressors:: None Sedation:: Fentanyl, diprivan. Physical Exam Vital Signs: Temp Pulse Resp BP Pulse Ox 97.7 F 73 16 153/92 H 87 L 04/03/20 08:00 04/03/20 05:51 04/03/20 08:36 04/03/20 08:36 04/03/20 08:36 Intake & Output 04/02/20 04/03/20 04/04/20 06:59 06:59 06:59 Intake Total 4833 4432 923 Output Total 2200 3055 1250 Balance 2633 1377 -327 Weight 148.3 kg 149.7 kg Weight/Height Weight 149.7 kg Height 5 ft 3 in General appearance: PRESENT: no acute distress Head exam: PRESENT: atraumatic, normocephalic Eye exam: PRESENT: conjunctiva pink, EOMI, PERRLA. ABSENT: scleral icterus Ear exam: PRESENT: normal external ear exam Mouth exam: PRESENT: moist, tongue midline Respiratory exam: PRESENT: clear to auscultation reji, decreased breath sounds. ABSENT: rales, rhonchi, wheezes Cardiovascular exam: PRESENT: RRR. ABSENT: diastolic murmur, rubs, systolic murmur GI/Abdominal exam: PRESENT: normal bowel sounds, soft. ABSENT: distended, guarding, mass, organolmegaly, rebound, tenderness Rectal exam: PRESENT: deferred Gentrourinary exam: PRESENT: indwelling catheter Extremities exam: PRESENT: full ROM. ABSENT: calf tenderness, clubbing, pedal edema Musculoskeletal exam: PRESENT: normal inspection Neurological exam: PRESENT: other - Sedated and muscle relaxants on board. Skin exam: PRESENT: dry, intact, warm. ABSENT: cyanosis, rash Tubes/Lines: PRESENT: Endotracheal Tube, Nasogastic Tube Laboratory/Radiographs Laboratory Results: 04/03/20 04:23 04/03/20 04:23 04/02/20 04/03/20 04/03/20 18:18 04:23 04:23 WBC 12.5 H RBC 3.46 L Hgb 8.2 L Hct 25.8 L MCV 75 L MCH 23.5 L MCHC 31.5 L RDW 28.1 H Plt Count 213 Seg Neutrophils % Not Reportable Carbonic Acid 1.59 H HCO3/H2CO3 Ratio 18:1 ABG pH 7.36 ABG pCO2 52.9 H ABG pO2 58.2 L ABG HCO3 29.4 H ABG O2 Saturation 88.8 L ABG Base Excess 3.4 FiO2 100% Sodium 142.3 Potassium 5.0 Chloride 103 Carbon Dioxide 31 H Anion Gap 8 BUN 17 Creatinine 0.75 Est GFR ( Amer) > 60 Glucose 231 H Calcium 9.3 Total Bilirubin 1.2 AST 72 H Alkaline Phosphatase 61 Total Protein 6.2 L Albumin 3.0 L Triglycerides 333 H 04/01/20 03:21 Fernandez Catheter Urine Culture - Final NO GROWTH 2 DAYS 04/01/20 03:21 Tracheal Aspirate Gram Stain - Final 04/01/20 03:21 Tracheal Aspirate Sputum Culture - Final Yeast, Not Oralia Albicans Greatly Reduced Normal Chloe 03/21/20 21:58 Troponin I < 0.012 Impressions: Chest X-Ray 04/03/20 17:00 IMPRESSION: No change in diffuse bilateral alveolar and interstitial infiltrates Stable cardiomegaly Tubes and lines in good positioning All labs, radiographs, diagnostic studies and EKGs were personally reviewed: Yes In addition, reports of radiographic and diagnostic studies were read: Yes Assessment and Plan - Diagnosis (1) Pneumonia due to COVID-19 virus Is this a current diagnosis for this admission?: Yes Plan: Not much room to make vent changes. Still on 100% and rocuronium and O2 saturations still only 88-90. (2) Morbid obesity with BMI of 50.0-59.9, adult Is this a current diagnosis for this admission?: Yes Plan: A risk factor for Covid mortality and making proning difficult. (3) Schizophrenia Qualifiers: Schizophrenia type: unspecified Qualified Code(s): F20.9 - Schizophrenia, unspecified Is this a current diagnosis for this admission?: Yes Plan: On no meds. None to be started while this sick. (4) Acute hypoxemic respiratory failure Is this a current diagnosis for this admission?: Yes Plan: Needs vent support Plan Summary: Start tube feeds as I do not see her vent course being a short course. Not able to wean vent yet. Critical Time Critical Time (minutes): 35 Level of Care: ICU Anticipated discharge: SNF Anticipated DC Timeframe: Other -: 1. The care of a critical patient is a dynamic process. This note is a loss control representative synopsis but static in nature. The timeframe for treatments giv en in order is not necessarily the actual time these treatments may have been done. 2. This patient requires critical care secondary to ongoing requirements for therapy not offered or safe outside the critical care environment. Transfer to a lower level of care will result in altered life or limb morbidity and mortality. 3. Multidisciplinary rounds completed. 4. ABCDE bundle addressed.
[2020-04-03] MEDS: LABETALOL HCL INJ 20 MG/4 ML DISP.SYRIN IV PRN (16:21)
[2020-04-03] MEDS: RINGERS SOLUTION,LACTATED 1,000 ML IV PRN (19:10)
[2020-04-03 20:07] LABS: ARTERIAL BLOOD BASE EXCESS 3.1 mmol/L; ARTERIAL BLOOD FIO2 100%; ARTERIAL BLOOD H2CO3 1.86 mmol/L (1.05-1.35); ARTERIAL BLOOD HCO3 30.4 mmol/L (20-24); ARTERIAL BLOOD O2 SATURATION 83.1 % (94-98); ARTERIAL BLOOD PCO2 61.9 mmHg (35-45); ARTERIAL BLOOD PH 7.31 (7.35-7.45); ARTERIAL BLOOD PO2 52.6 mmHg (80-100); ARTERIAL BLOOD TOTAL CO2 32.3 mmol/L (21-25)
[2020-04-03 23:00] LABS: VANCOMYCIN,TROUGH 11.3 ug/mL (5.0-20.0)
[2020-04-04] MEDS: FENTANYL CITRATE/PF 600 MCG/60 ML BAG IV PRN ×5 (00:54→20:17)
[2020-04-04] MEDS: LABETALOL HCL INJ 20 MG/4 ML DISP.SYRIN IV PRN ×3 (00:55→17:58)
[2020-04-04] MEDS: LORAZEPAM INJ 2 MG/1 ML VIAL IV PRN ×2 (00:55→21:59)
[2020-04-04] MEDS: PROPOFOL 1,000 MG/100 ML INFUS..BTL IV PRN ×10 (01:32→21:59)
[2020-04-04] MEDS: IPRATROPIUM/ALBUTEROL 0.5-2.5 MG/3 ML AMPUL NEB PRN ×2 (01:38→20:10)
[2020-04-04] MEDS: NORMAL SALINE 500 ML with ROCURONIUM BROMIDE 500 MG IV PRN ×6 (04:00→16:15)
[2020-04-04] MEDS: INSULIN REG, HUMAN 100 UNIT/ML 3 ML VIAL (PYX) SUBCUT SCH ×3 (05:50→17:47)
[2020-04-04] MEDS: HEPARIN SOD (PORCINE) 5,000 UNIT/ML 1 ML VIAL SUBCUT SCH ×3 (05:51→22:00)
[2020-04-04] MEDS: METHYLPREDNISOLONE INJ 40 MG/1 ML SDV IV SCH ×3 (05:51→22:00)
[2020-04-04] MEDS: RINGERS SOLUTION,LACTATED 1,000 ML IV PRN ×2 (08:39→22:01)
[2020-04-04] MEDS: CEFEPIME HCL 2 GM in DEXTROSE 5%-WATER 50 ML IV SCH ×2 (11:17→22:02)
[2020-04-04] MEDS: FAMOTIDINE INJ/PF 20 MG/2 ML SDV IV SCH ×2 (11:17→22:00)
[2020-04-04] MEDS: CHOLECALCIFEROL (D3) 1,000 UNIT (25 MCG) TABLET NG SCH (11:19)
[2020-04-04] MEDS: ASCORBIC ACID 500 MG TABLET NG SCH ×2 (11:21→17:52)
[2020-04-04] MEDS: ZINC SULFATE 220 MG CAPSULE NG SCH (11:21)
[2020-04-04] MEDS: VANCOMYCIN HCL 1,000 MG in DEXTROSE 5%-WATER 250 ML IV SCH ×2 (12:28→19:06)
--- NOTE | 2020-04-04 14:01 | PDOC CRITICAL CARE PROG REPORT ---
General Date:: 04/04/20 ICU Day:: 3 Ventilator Day:: 3 Hospital Day:: 13 Resuscitation Status: Full Code Events in the past 12 to 24 Hours:: Still on 100% FIO2. Review of systems relevant to events:: Pulmnary Reason for ICU Addmission:: acute respiratory failure, covid -19 pneumonia, intubated. - Medications: Medications reviewed and adjusted accordingly: Yes Vasopressors:: None Sedation:: Diprivan, fentanyl Physical Exam Vital Signs: Temp Pulse Resp BP Pulse Ox 98.3 F 81 17 148/88 H 86 L 04/04/20 08:00 04/04/20 08:00 04/04/20 10:00 04/04/20 10:00 04/04/20 12:00 Intake & Output 04/03/20 04/04/20 04/05/20 06:59 06:59 06:59 Intake Total 5432 3076 1588 Output Total 3055 5930 1100 Balance 2377 -2854 488 Weight 149.7 kg 153.5 kg 153.5 kg Weight/Height Weight 153.5 kg Height 5 ft 3 in General appearance: PRESENT: no acute distress Head exam: PRESENT: atraumatic, normocephalic Eye exam: PRESENT: conjunctiva pink, EOMI, PERRLA. ABSENT: scleral icterus Ear exam: PRESENT: normal external ear exam Mouth exam: PRESENT: moist, tongue midline Respiratory exam: PRESENT: clear to auscultation reji, decreased breath sounds. ABSENT: rales, rhonchi, wheezes Cardiovascular exam: PRESENT: RRR. ABSENT: diastolic murmur, rubs, systolic murmur GI/Abdominal exam: PRESENT: normal bowel sounds, soft. ABSENT: distended, guarding, mass, organolmegaly, rebound, tenderness Rectal exam: PRESENT: deferred Gentrourinary exam: PRESENT: indwelling catheter Extremities exam: PRESENT: full ROM. ABSENT: calf tenderness, clubbing, pedal edema Musculoskeletal exam: PRESENT: normal inspection Neurological exam: PRESENT: other - Sedated and has Skin exam: PRESENT: dry, intact, warm. ABSENT: cyanosis, rash Tubes/Lines: PRESENT: Endotracheal Tube, Central Line, Nasogastic Tube Laboratory/Radiographs Laboratory Results: 04/03/20 04:23 04/03/20 04:23 04/03/20 18:14 Carbonic Acid 1.86 H HCO3/H2CO3 Ratio 16:1 ABG pH 7.31 L ABG pCO2 61.9 H ABG pO2 52.6 L ABG HCO3 30.4 H ABG O2 Saturation 83.1 L ABG Base Excess 3.1 FiO2 100% 03/21/20 21:58 Troponin I < 0.012 Impressions: Chest X-Ray 04/03/20 17:00 IMPRESSION: No change in diffuse bilateral alveolar and interstitial infiltrates Stable cardiomegaly Tubes and lines in good positioning All labs, radiographs, diagnostic studies and EKGs were personally reviewed: Yes In addition, reports of radiographic and diagnostic studies were read: Yes Assessment and Plan - Diagnosis (1) Pneumonia due to COVID-19 virus Is this a current diagnosis for this admission?: Yes Plan: Stefano though she is just 44, she is obese, with DM and HTN and -[place] placing her in a group at high risk of . At this point we can make no moves on vent weaning. (2) Morbid obesity with BMI of 50.0-59.9, adult Is this a current diagnosis for this admission?: Yes Plan: Another risk factor for mortality and making proning difficult. (3) Schizophrenia Qualifiers: Schizophrenia type: unspecified Qualified Code(s): F20.9 - Schizophrenia, unspecified Is this a current diagnosis for this admission?: Yes Plan: Impossible to assess psych status on sedation and relaxants. (4) Acute hypoxemic respiratory failure Is this a current diagnosis for this admission?: Yes Plan: Still present as noted above. Plan Summary: Plan to support as is with no room for weaning. Critical Time Critical Time (minutes): 35 Level of Care: ICU Anticipated discharge: SNF Anticipated DC Timeframe: Other -: 1. The care of a critical patient is a dynamic process. This note is a international representative synopsis but static in nature. The timeframe for treatments given in order is not necessarily the actual time these treatments may have been done. 2. This patient requires critical care secondary to ongoing requirements for therapy not offered or safe outside the critical care environment. Transfer to a lower level of care will result in altered life or limb morbidity and mortality. 3. Multidisciplinary rounds completed. 4. ABCDE bundle addressed.
[2020-04-04] MEDS: AMINO AC/PROTEIN HYDR/WHEY PRO 11 GM/45 ML PKT NG SCH ×2 (22:00)
[2020-04-05] MEDS: INSULIN REG, HUMAN 100 UNIT/ML 3 ML VIAL (PYX) SUBCUT SCH ×4 (00:38→18:05)
[2020-04-05] MEDS: PROPOFOL 1,000 MG/100 ML INFUS..BTL IV PRN ×9 (00:38→18:15)
[2020-04-05] MEDS: NORMAL SALINE 500 ML with ROCURONIUM BROMIDE 500 MG IV PRN ×8 (00:39→20:42)
[2020-04-05] MEDS: VANCOMYCIN HCL 1,000 MG in DEXTROSE 5%-WATER 250 ML IV SCH ×3 (03:30→18:06)
[2020-04-05] MEDS: FENTANYL CITRATE/PF 600 MCG/60 ML BAG IV PRN ×4 (05:24→20:43)
[2020-04-05] MEDS: METHYLPREDNISOLONE INJ 40 MG/1 ML SDV IV SCH ×3 (05:24→21:05)
[2020-04-05] MEDS: HEPARIN SOD (PORCINE) 5,000 UNIT/ML 1 ML VIAL SUBCUT SCH ×3 (05:24→21:05)
[2020-04-05] MEDS: LORAZEPAM INJ 2 MG/1 ML VIAL IV PRN (05:44)
[2020-04-05 06:08] LABS: HEMATOCRIT 24.8 % (36.0-47.0); MEAN CORPUSCULAR HEMOGLOBIN 23.7 pg (27.0-33.4); MEAN CORPUSCULAR HGB CONC 32.2 g/dL (32.0-36.0); MEAN CORPUSCULAR VOLUME 74 fl (80-97); RED BLOOD COUNT 3.37 10^6/uL (3.72-5.28); RED CELL DISTRIBUTION WIDTH 28.4 % (11.5-14.0); WHITE BLOOD COUNT 17.5 10^3/uL (4.0-10.5)
[2020-04-05 06:13] LABS: ANION GAP 6 (5-19); BLOOD UREA NITROGEN 23 mg/dL (7-20); CALCIUM 9.2 mg/dL (8.4-10.2); CARBON DIOXIDE 30 mmol/L (22-30); CHLORIDE 101 mmol/L (98-107); GLUCOSE 251 mg/dL (75-110); POTASSIUM 4.9 mmol/L (3.6-5.0)
[2020-04-05 06:33] LABS: ABSOLUTE LYMPHOCYTES# (MANUAL) 0.5 10^3/uL (0.5-4.7); ABSOLUTE MONOCYTES # (MANUAL) 0.7 10^3/uL (0.1-1.4); BASOPHILS % (MANUAL) 0 % (0-2); EOSINOPHILS % (MANUAL) 0 % (0-6); LYMPHOCYTES % (MANUAL) 3 % (13-45); MONOCYTES % (MANUAL) 4 % (3-13); NUCLEATED RED BLOOD CELLS 2 /100 WBC (0); SEGMENTED NEUTROPHILS % (MAN) 93 % (42-78); TOTAL CELLS COUNTED 100
[2020-04-05 06:35] LABS: ANISOCYTOSIS 3+; HYPOCHROMASIA 1+; POIKILOCYTOSIS 1+; POLYCHROMASIA SLIGHT
[2020-04-05 06:36] LABS: PLATELET CLUMPS PRESENT; PLATELET COMMENT ADEQUATE; STOMATOCYTES 1+; TARGET CELLS 1+; TEAR DROP CELLS 1+
[2020-04-05 06:37] LABS: PLATELET COUNT 211 10^3/uL (150-450)
--- NOTE | 2020-04-05 09:55 | PDOC CRITICAL CARE PROG REPORT ---
General Date:: 04/05/20 ICU Day:: 4 Ventilator Day:: 4 Hospital Day:: 14 Resuscitation Status: Full Code Events in the past 12 to 24 Hours:: Still hypoxic despite maximal support. Review of systems relevant to events:: Pulmonary. Reason for ICU Addmission:: acute respiratory failure, covid -19 pneumonia, intubated. - Medications: Medications reviewed and adjusted accordingly: Yes Vasopressors:: None Sedation:: Fentanyl, diprivan. Physical Exam Vital Signs: Temp Pulse Resp BP Pulse Ox 98.7 F 87 22 H 130/75 H 81 L 04/05/20 02:00 04/04/20 20:10 04/05/20 06:23 04/05/20 06:23 04/05/20 09:04 Intake & Output 04/04/20 04/05/20 04/06/20 06:59 06:59 06:59 Intake Total 3076 5401 Output Total 5930 4585 Balance -2854 816 Weight 153.5 kg 150.1 kg Weight/Height Weight 150.1 kg Height 5 ft 3 in General appearance: PRESENT: no acute distress, morbidly obese Head exam: PRESENT: atraumatic, normocephalic Eye exam: PRESENT: conjunctiva pink, EOMI, PERRLA. ABSENT: scleral icterus Ear exam: PRESENT: normal external ear exam Mouth exam: PRESENT: moist, tongue midline Respiratory exam: PRESENT: clear to auscultation reji, decreased breath sounds. ABSENT: rales, rhonchi, wheezes Cardiovascular exam: PRESENT: RRR. ABSENT: diastolic murmur, rubs, systolic murmur GI/Abdominal exam: PRESENT: normal bowel sounds, soft. ABSENT: distended, guarding, mass, organolmegaly, rebound, tenderness Rectal exam: PRESENT: deferred Gentrourinary exam: PRESENT: indwelling catheter Extremities exam: PRESENT: +1 edema Musculoskeletal exam: PRESENT: normal inspection Neurological exam: PRESENT: other - Sedated and under rocuronium. Skin exam: PRESENT: dry, intact, warm. ABSENT: cyanosis, rash Tubes/Lines: PRESENT: Endotracheal Tube, Central Line, Nasogastic Tube Laboratory/Radiographs Laboratory Results: 04/05/20 05:15 04/05/20 05:15 04/05/20 04/05/20 05:15 05:15 WBC 17.5 H RBC 3.37 L Hgb 8.0 L Hct 24.8 L MCV 74 L MCH 23.7 L MCHC 32.2 RDW 28.4 H Plt Count 211 Seg Neutrophils % Not Reportable Sodium 136.5 L Potassium 4.9 Chloride 101 Carbon Dioxide 30 Anion Gap 6 BUN 23 H Creatinine 0.72 Est GFR ( Amer) > 60 Glucose 251 H Calcium 9.2 03/21/20 21:58 Troponin I < 0.012 Impressions: Chest X-Ray 04/03/20 17:00 IMPRESSION: No change in diffuse bilateral alveolar and interstitial infiltrates Stable cardiomegaly Tubes and lines in good positioning All labs, radiographs, diagnostic studies and EKGs were personally reviewed: Yes In addition, reports of radiographic and diagnostic studies were read: Yes Assessment and Plan - Diagnosis (1) Pneumonia due to COVID-19 virus Is this a current diagnosis for this admission?: Yes Plan: Severe. Her O2 saturations are in the mid 80s. With sedation and muscle relaxants, this should reduce her metabolic needs to something that should not increase her lactic acid. She is severely ill. Being obese, hypertensive, diabetic and black puts her in a high risk category. (2) Morbid obesity with BMI of 50.0-59.9, adult Is this a current diagnosis for this admission?: Yes Plan: A risk factor of mortality and also limits our ability to prone if needed. (3) Schizophrenia Qualifiers: Schizophrenia type: unspecified Qualified Code(s): F20.9 - Schizophrenia, unspecified Is this a current diagnosis for this admission?: Yes Plan: Chronic (4) Acute hypoxemic respiratory failure Is this a current diagnosis for this admission?: Yes Plan: As above. Plan Summary: Continue support unchanged. High risk of mortality despite her young age. Critical Time Critical Time (minutes): 35 Level of Care: ICU Anticipated discharge: Home Anticipated DC Timeframe: Other -: 1. The care of a critical patient is a dynamic process. This note is a tax compliance representative synopsis but static in nature. The timeframe for treatments given in order is not necessarily the actual time these treatments may have been done. 2. This patient requires critical care secondary to ongoing requirements for therapy not offered or safe outside the critical care environment. Transfer to a lower level of care will result in altered life or limb morbidity and mortality. 3. Multidisciplinary rounds completed. 4. ABCDE bundle addressed.
[2020-04-05] MEDS: CHOLECALCIFEROL (D3) 1,000 UNIT (25 MCG) TABLET NG SCH (10:32)
[2020-04-05] MEDS: ASCORBIC ACID 500 MG TABLET NG SCH ×2 (10:32→18:03)
[2020-04-05] MEDS: AMINO AC/PROTEIN HYDR/WHEY PRO 11 GM/45 ML PKT NG SCH ×4 (10:32→21:05)
[2020-04-05] MEDS: ZINC SULFATE 220 MG CAPSULE NG SCH (10:32)
[2020-04-05] MEDS: FAMOTIDINE INJ/PF 20 MG/2 ML SDV IV SCH ×2 (10:33→21:05)
[2020-04-05] MEDS: CEFEPIME HCL 2 GM in DEXTROSE 5%-WATER 50 ML IV SCH ×2 (10:35→21:05)
[2020-04-05 11:22] LABS: VANCOMYCIN,TROUGH 16.6 ug/mL (5.0-20.0)
[2020-04-05] MEDS: RINGERS SOLUTION,LACTATED 1,000 ML IV PRN ×2 (13:15→23:15)
[2020-04-05] MEDS ORDERED: MIDAZOLAM HCL 50 MG/100 ML RTUINJ ONE (19:33)
[2020-04-05] MEDS ORDERED: MIDAZOLAM 2 MG/2 ML INJ ONE (20:15)
[2020-04-05] MEDS ORDERED: MIDAZOLAM 2 MG/2 ML INJ IV ONE (20:18)
[2020-04-05] MEDS: MIDAZOLAM HCL 50 MG/100 ML RTUINJ IV PRN (20:50)
[2020-04-06] MEDS ORDERED: INSULIN GLARGINE,HUM.REC.ANLOG 1,000 UNIT/10 ML VIAL (PYX) SUBCUT ONE (00:30)
[2020-04-06] MEDS: INSULIN REG, HUMAN 100 UNIT/ML 3 ML VIAL (PYX) SUBCUT SCH ×4 (00:37→18:02)
[2020-04-06] MEDS: INSULIN GLARGINE,HUM.REC.ANLOG 1,000 UNIT/10 ML VIAL SUBCUT SCH ×3 (00:37→21:04)
[2020-04-06] MEDS: MIDAZOLAM HCL 50 MG/100 ML RTUINJ IV PRN ×7 (00:37→21:15)
[2020-04-06] MEDS: FENTANYL CITRATE/PF 600 MCG/60 ML BAG IV PRN ×4 (02:35→20:00)
[2020-04-06] MEDS: VANCOMYCIN HCL 1,000 MG in DEXTROSE 5%-WATER 250 ML IV SCH ×3 (03:30→20:59)
[2020-04-06] MEDS: NORMAL SALINE 500 ML with ROCURONIUM BROMIDE 500 MG IV PRN ×8 (04:00→23:30)
[2020-04-06] MEDS: METHYLPREDNISOLONE INJ 40 MG/1 ML SDV IV SCH ×3 (05:51→21:00)
[2020-04-06] MEDS: HEPARIN SOD (PORCINE) 5,000 UNIT/ML 1 ML VIAL SUBCUT SCH ×3 (05:53→21:00)
--- NOTE | 2020-04-06 10:49 | PDOC CRITICAL CARE PROG REPORT ---
General Date:: 04/06/20 ICU Day:: 5 Ventilator Day:: 5 Hospital Day:: 15 Resuscitation Status: Full Code Events in the past 12 to 24 Hours:: Still on 100% FIO2. Cant make meaningful progress. Review of systems relevant to events:: Pulmonary, Psychiatric. Reason for ICU Addmission:: acute respiratory failure, covid -19 pneumonia, intubated. - Medications: Medications reviewed and adjusted accordingly: Yes Vasopressors:: None Sedation:: Fentanyl, versed Physical Exam Vital Signs: Temp Pulse Resp BP Pulse Ox 98.1 F 90 23 H 137/90 H 88 L 04/06/20 09:43 04/06/20 09:43 04/06/20 09:43 04/06/20 09:43 04/06/20 09:43 Intake & Output 04/05/20 04/06/20 04/07/20 06:59 06:59 06:59 Intake Total 5401 5381 89 Output Total 4585 3990 600 Balance 816 1391 -511 Weight 150.1 kg 150.1 kg Weight/Height Weight 150.1 kg Height 5 ft 3 in General appearance: PRESENT: no acute distress, morbidly obese Head exam: PRESENT: atraumatic Eye exam: PRESENT: PERRLA Ear exam: PRESENT: normal external ear exam Mouth exam: PRESENT: moist, tongue midline Respiratory exam: PRESENT: clear to auscultation reji, rhonchi. ABSENT: rales, wheezes Cardiovascular exam: PRESENT: RRR. ABSENT: diastolic murmur, rubs, systolic murmur GI/Abdominal exam: PRESENT: normal bowel sounds, soft. ABSENT: distended, guarding, mass, organolmegaly, rebound, tenderness Rectal exam: PRESENT: deferred Gentrourinary exam: PRESENT: indwelling catheter Extremities exam: PRESENT: full ROM. ABSENT: calf tenderness, clubbing, pedal edema Musculoskeletal exam: PRESENT: normal inspection Neurological exam: PRESENT: other - Sedated Skin exam: PRESENT: dry, intact, warm. ABSENT: cyanosis, rash Tubes/Lines: PRESENT: Endotracheal Tube, Nasogastic Tube Laboratory/Radiographs Laboratory Results: 04/05/20 05:15 04/05/20 05:15 03/21/20 21:58 Troponin I < 0.012 Impressions: Chest X-Ray 04/03/20 17:00 IMPRESSION: No change in diffuse bilateral alveolar and interstitial infiltrates Stable cardiomegaly Tubes and lines in good positioning All labs, radiographs, diagnostic studies and EKGs were personally reviewed: Yes In addition, reports of radiographic and diagnostic studies were read: Yes Assessment and Plan - Diagnosis (1) Pneumonia due to COVID-19 virus Is this a current diagnosis for this admission?: Yes Plan: Her PNA is severe requiring FIO2 100% and 13 PEEP. Even with this support she has an O2 saturation of 88%. She seems to have daily dips to low to mid 80s. Right now there is no room to wean. She has several risk factors for Covid mortality and likely will not do well. (2) Morbid obesity with BMI of 50.0-59.9, adult Is this a current diagnosis for this admission?: Yes Plan: Risk factor. (3) Schizophrenia Qualifiers: Schizophrenia type: unspecified Qualified Code(s): F20.9 - Schizophrenia, unspecified Is this a current diagnosis for this admission?: Yes Plan: She is under no treatment or medications. Will get behavioral health involved if she survives. (4) Acute hypoxemic respiratory failure Is this a current diagnosis for this admission?: Yes Plan: Still present. Plan Summary: No room to make vent changes at this time. Critical Time Critical Time (minutes): 35 Level of Care: ICU Anticipated discharge: SNF Anticipated DC Timeframe: Other -: 1. The care of a critical patient is a dynamic process. This note is a r epresentative synopsis but static in nature. The timeframe for treatments given in order is not necessarily the actual time these treatments may have been done. 2. This patient requires critical care secondary to ongoing requirements for therapy not offered or safe outside the critical care environment. Transfer to a lower level of care will result in altered life or limb morbidity and mortali ty. 3. Multidisciplinary rounds completed. 4. ABCDE bundle addressed.
--- NOTE | 2020-04-06 10:53 | PDOC CRITICAL CARE PROG REPORT ---
General Date:: 04/02/20 ICU Day:: 2 Ventilator Day:: 2 Hospital Day:: 11 Resuscitation Status: Full Code Events in the past 12 to 24 Hours:: Intubated, proned and now supinated. Review of systems relevant to events:: Pulmonary, psychiatric. Reason for ICU Addmission:: acute respiratory failure, covid -19 pneumonia, intubated. - Medications: Medications reviewed and adjusted accordingly: Yes Vasopressors:: None Sedation:: Propofol, fentanyl. Physical Exam Vital Signs: Temp Pulse Resp BP Pulse Ox 98.7 F 104 H 17 127/76 H 97 04/02/20 08:00 04/02/20 08:00 04/02/20 08:00 04/02/20 08:00 04/02/20 08:00 Intake & Output 04/01/20 04/02/20 04/03/20 06:59 06:59 06:59 Intake Total 3715 4833 Output Total 1525 2200 0 Balance 2190 2633 0 Weight 142.6 kg 148.3 kg Weight/Height Weight 148.3 kg Height 5 ft 3 in General appearance: PRESENT: no acute distress, morbidly obese Head exam: PRESENT: atraumatic, normocephalic Eye exam: PRESENT: conjunctiva pink, EOMI, PERRLA. ABSENT: scleral icterus Ear exam: PRESENT: normal external ear exam Mouth exam: PRESENT: moist, tongue midline Respiratory exam: PRESENT: clear to auscultation reji, decreased breath sounds, other - Coarse lung sounds.. ABSENT: rales, rhonchi, wheezes Cardiovascular exam: PRESENT: RRR, tachycardia. ABSENT: diastolic murmur, rubs, systolic murmur GI/Abdominal exam: PRESENT: normal bowel sounds, soft. ABSENT: distended, guarding, mass, organolmegaly, rebound, tenderness Rectal exam: PRESENT: deferred Gentrourinary exam: PRESENT: indwelling catheter Extremities exam: PRESENT: full ROM. ABSENT: calf tenderness, clubbing, pedal edema Musculoskeletal exam: PRESENT: normal inspection Neurological exam: PRESENT: other - Both sedated and on muscle relaxants. Skin exam: PRESENT: dry, intact, warm. ABSENT: cyanosis, rash Tubes/Lines: PRESENT: Endotracheal Tube, Central Line, Nasogastic Tube Laboratory/Radiographs Laboratory Results: 04/01/20 03:21 04/01/20 09:00 04/01/20 04/01/20 04/01/20 09:00 17:55 18:41 Carbonic Acid 1.62 H 1.60 H HCO3/H2CO3 Ratio 18:1 17:1 ABG pH 7.36 7.34 L ABG pCO2 53.9 H 53.0 H ABG pO2 39.8 L* 40.5 L* ABG HCO3 30.0 H 28.1 H ABG O2 Saturation 71.9 L 71.9 L ABG Base Excess 3.7 1.8 FiO2 70% 70% Sodium 139.9 Potassium 4.6 Chloride 100 Carbon Dioxide 32 H Anion Gap 8 BUN 17 Creatinine 0.76 Est GFR ( Amer) > 60 Glucose 141 H Calcium 9.7 03/21/20 21:58 Troponin I < 0.012 Impressions: Chest X-Ray 04/01/20 10:00 IMPRESSION: Slight improved aeration, overall similar appearance. All labs, radiographs, diagnostic studies and EKGs were personally reviewed: Yes In addition, reports of radiographic and diagnostic studies were read: Yes Assessment and Plan - Diagnosis (1) Pneumonia due to COVID-19 virus Is this a current diagnosis for this admission?: Yes Plan: Severe PNA with high requirement for FIO2. (2) Morbid obesity with BMI of 50.0-59.9, adult Is this a current diagnosis for this admission?: Yes Plan: One of several risk factors for mortality. This will make it difficult to prone. (3) Schizophrenia Qualifiers: Schizophrenia type: unspecified Qualified Code(s): F20.9 - Schizophrenia, unspecified Is this a current diagnosis for this admission?: Yes Plan: No treatment Plan Summary: Need to have her lungs improve to make any meaningful vent changes. Critical Time Critical Time (minutes): 35 Level of Care: ICU Anticipated discharge: SNF Anticipated DC Timeframe: Other -: 1. The care of a critical patient is a dynamic process. This note is a artist's representative synopsis but static in nature. The timeframe for treatments given in order is not necessarily the actual time these treatments may have been done. 2. This patient requires critical care secondary to ongoing requirements for therapy not offered or safe outside the critical care environment. Transfer to a lower level of care will result in altered life or limb morbidity and mortality. 3. Multidisciplinary rounds completed. 4. ABCDE bundle addressed.
[2020-04-06] MEDS: FAMOTIDINE INJ/PF 20 MG/2 ML SDV IV SCH ×2 (10:57→21:00)
[2020-04-06] MEDS: ASCORBIC ACID 500 MG TABLET NG SCH ×2 (10:58→17:41)
[2020-04-06] MEDS: ZINC SULFATE 220 MG CAPSULE NG SCH (10:58)
[2020-04-06] MEDS: CHOLECALCIFEROL (D3) 1,000 UNIT (25 MCG) TABLET NG SCH (10:59)
[2020-04-06] MEDS: AMINO AC/PROTEIN HYDR/WHEY PRO 11 GM/45 ML PKT NG SCH ×4 (10:59→21:05)
[2020-04-06] MEDS: CEFEPIME HCL 2 GM in DEXTROSE 5%-WATER 50 ML IV SCH ×2 (10:59→21:04)
[2020-04-06] MEDS: RINGERS SOLUTION,LACTATED 1,000 ML IV PRN (16:00)
[2020-04-06] MEDS: LORAZEPAM INJ 2 MG/1 ML VIAL IV PRN (17:41)
[2020-04-07] MEDS: MIDAZOLAM HCL 50 MG/100 ML RTUINJ IV PRN ×6 (00:38→22:05)
[2020-04-07] MEDS: FENTANYL CITRATE/PF 600 MCG/60 ML BAG IV PRN ×4 (01:30→19:20)
[2020-04-07] MEDS: VANCOMYCIN HCL 1,000 MG in DEXTROSE 5%-WATER 250 ML IV SCH ×3 (03:50→18:28)
[2020-04-07] MEDS: INSULIN REG, HUMAN 100 UNIT/ML 3 ML VIAL (PYX) SUBCUT SCH ×4 (05:29→17:29)
[2020-04-07] MEDS: RINGERS SOLUTION,LACTATED 1,000 ML IV PRN ×2 (05:32→18:26)
[2020-04-07] MEDS: NORMAL SALINE 500 ML with ROCURONIUM BROMIDE 500 MG IV PRN ×2 (05:37)
[2020-04-07] MEDS: METHYLPREDNISOLONE INJ 40 MG/1 ML SDV IV SCH ×2 (05:43→17:23)
[2020-04-07] MEDS: HEPARIN SOD (PORCINE) 5,000 UNIT/ML 1 ML VIAL SUBCUT SCH ×2 (05:44→17:23)
--- NOTE | 2020-04-07 08:20 | PDOC CRITICAL CARE PROG REPORT ---
General Date:: 04/07/20 ICU Day:: 6 Ventilator Day:: 6 Resuscitation Status: Full Code Events in the past 12 to 24 Hours:: Essentially no change. Will try holding rocuronium. Review of systems relevant to events:: Pulmonary, phychiatry. Reason for ICU Addmission:: acute respiratory failure, covid -19 pneumonia, intubated. - Medications: Medications reviewed and adjusted accordingly: Yes Vasopressors:: None Sedation:: Fentanyl, midazolam. Physical Exam Vital Signs: Temp Pulse Resp BP Pulse Ox 98.1 F 95 23 H 140/88 H 97 04/07/20 03:54 04/06/20 20:17 04/07/20 06:24 04/07/20 06:24 04/07/20 06:24 Intake & Output 04/06/20 04/07/20 04/08/20 06:59 06:59 06:59 Intake Total 5381 6554 Output Total 3990 4650 Balance 1391 1904 Weight 150.1 kg 158.7 kg Weight/Height Weight 158.7 kg Height 5 ft 3 in General appearance: PRESENT: no acute distress, morbidly obese Head exam: PRESENT: atraumatic, normocephalic Eye exam: PRESENT: conjunctiva pink, EOMI, PERRLA. ABSENT: scleral icterus Ear exam: PRESENT: normal external ear exam Mouth exam: PRESENT: moist, tongue midline Respiratory exam: PRESENT: clear to auscultation reji, decreased breath sounds. ABSENT: rales, rhonchi, wheezes Cardiovascular exam: PRESENT: RRR. ABSENT: diastolic murmur, rubs, systolic murmur GI/Abdominal exam: PRESENT: normal bowel sounds, soft. ABSENT: distended, guarding, mass, organolmegaly, rebound, tenderness Rectal exam: PRESENT: deferred Gentrourinary exam: PRESENT: indwelling catheter Extremities exam: PRESENT: full ROM. ABSENT: calf tenderness, clubbing, pedal edema Musculoskeletal exam: PRESENT: normal inspection Neurological exam: PRESENT: other - Sedated and for now has muscle relaxants. Tubes/Lines: PRESENT: Endotracheal Tube, Central Line, Nasogastic Tube Laboratory/Radiographs Laboratory Results: 04/05/20 05:15 04/05/20 05:15 03/21/20 21:58 Troponin I < 0.012 Impressions: Chest X-Ray 04/03/20 17:00 IMPRESSION: No change in diffuse bilateral alveolar and interstitial infiltrates Stable cardiomegaly Tubes and lines in good positioning All labs, radiographs, diagnostic studies and EKGs were personally reviewed: Yes In addition, reports of radiographic and diagnostic studies were read: Yes Assessment and Plan - Diagnosis (1) Pneumonia due to COVID-19 virus Is this a current diagnosis for this admission?: Yes Plan: On 100%. Unable to wean but will try off rocurinium. Obesity makes this a higher risk patient. (2) Morbid obesity with BMI of 50.0-59.9, adult Is this a current diagnosis for this admission?: Yes Plan: As above (3) Schizophrenia Qualifiers: Schizophrenia type: unspecified Qualified Code(s): F20.9 - Schizophrenia, unspecified Is this a current diagnosis for this admission?: Yes Plan: No treatment as an out patient. If she survives will need to get behavioral h ealth involved. Plan Summary: Hold rocuronium today. Critical Time Critical Time (minutes): 35 Level of Care: ICU Anticipated discharge: SNF Anticipated DC Timeframe: Other -: 1. The care of a critical patient is a dynamic process. This note is a internet sales representative synopsis but static in nature. The timeframe for treatments given in order is not necessarily the actual time these treatments may have been done. 2. This patient requires critical care secondary to ongoing requirements for therapy not offered or safe outside the critical care environment. Transfer to a lower level of care will result in altered life or limb morbidity and mortality. 3. Multidisciplinary rounds completed. 4. ABCDE bundle addressed.
[2020-04-07] MEDS: CHOLECALCIFEROL (D3) 1,000 UNIT (25 MCG) TABLET NG SCH (10:28)
[2020-04-07] MEDS: FAMOTIDINE INJ/PF 20 MG/2 ML SDV IV SCH (10:28)
[2020-04-07] MEDS: ZINC SULFATE 220 MG CAPSULE NG SCH (10:28)
[2020-04-07] MEDS: CEFEPIME HCL 2 GM in DEXTROSE 5%-WATER 50 ML IV SCH (10:28)
[2020-04-07] MEDS: ASCORBIC ACID 500 MG TABLET NG SCH ×2 (10:28→17:23)
[2020-04-07] MEDS: INSULIN GLARGINE,HUM.REC.ANLOG 1,000 UNIT/10 ML VIAL SUBCUT SCH (10:33)
[2020-04-07] MEDS: AMINO AC/PROTEIN HYDR/WHEY PRO 11 GM/45 ML PKT NG SCH ×3 (10:34→18:25)
[2020-04-08] MEDS: HEPARIN SOD (PORCINE) 5,000 UNIT/ML 1 ML VIAL SUBCUT SCH ×4 (01:03→22:29)
[2020-04-08] MEDS: FENTANYL CITRATE/PF 600 MCG/60 ML BAG IV PRN ×5 (01:04→23:25)
[2020-04-08] MEDS: INSULIN REG, HUMAN 100 UNIT/ML 3 ML VIAL (PYX) SUBCUT SCH ×4 (01:04→17:34)
[2020-04-08] MEDS: FAMOTIDINE INJ/PF 20 MG/2 ML SDV IV SCH ×3 (01:08→22:09)
[2020-04-08] MEDS: METHYLPREDNISOLONE INJ 40 MG/1 ML SDV IV SCH ×4 (01:08→21:03)
[2020-04-08] MEDS: INSULIN GLARGINE,HUM.REC.ANLOG 1,000 UNIT/10 ML VIAL SUBCUT SCH ×3 (01:08→21:35)
[2020-04-08] MEDS: CEFEPIME HCL 2 GM in DEXTROSE 5%-WATER 50 ML IV SCH (01:09)
[2020-04-08] MEDS: AMINO AC/PROTEIN HYDR/WHEY PRO 11 GM/45 ML PKT NG SCH ×5 (01:10→22:22)
[2020-04-08] MEDS: MIDAZOLAM HCL 50 MG/100 ML RTUINJ IV PRN ×4 (02:40→17:33)
[2020-04-08] MEDS: VANCOMYCIN HCL 1,000 MG in DEXTROSE 5%-WATER 250 ML IV SCH (05:10)
[2020-04-08] MEDS: RINGERS SOLUTION,LACTATED 1,000 ML IV PRN ×2 (05:18→18:35)
[2020-04-08 05:21] LABS: ARTERIAL BLOOD H2CO3 1.39 mmol/L (1.05-1.35); ARTERIAL BLOOD HCO3 29.2 mmol/L (20-24); ARTERIAL BLOOD O2 SATURATION 91.8 % (94-98); ARTERIAL BLOOD PCO2 46.1 mmHg (35-45); ARTERIAL BLOOD PH 7.42 (7.35-7.45); ARTERIAL BLOOD PO2 61.3 mmHg (80-100); ARTERIAL BLOOD TOTAL CO2 30.6 mmol/L (21-25)
[2020-04-08] MEDS: DEXMEDETOMIDINE IN 0.9 % NACL 400 MCG/100 ML RTUPB IV PRN ×9 (05:21→22:19)
[2020-04-08 05:22] LABS: ARTERIAL BLOOD FIO2 100%
[2020-04-08 05:24] LABS: HEMATOCRIT 20.1 % (36.0-47.0); MEAN CORPUSCULAR HEMOGLOBIN 23.3 pg (27.0-33.4); MEAN CORPUSCULAR VOLUME 73 fl (80-97); PLATELET COUNT 112 10^3/uL (150-450); RED BLOOD COUNT 2.76 10^6/uL (3.72-5.28); RED CELL DISTRIBUTION WIDTH 28.5 % (11.5-14.0); WHITE BLOOD COUNT 19.6 10^3/uL (4.0-10.5)
[2020-04-08 05:42] LABS: ANION GAP 12 (5-19); BLOOD UREA NITROGEN 14 mg/dL (7-20); CALCIUM 7.6 mg/dL (8.4-10.2); CARBON DIOXIDE 15 mmol/L (22-30); CHLORIDE 101 mmol/L (98-107); GLUCOSE 164 mg/dL (75-110); POTASSIUM 4.4 mmol/L (3.6-5.0)
[2020-04-08 06:07] LABS: HEMOGLOBIN 6.4 g/dL (12.0-15.5)
[2020-04-08 06:10] LABS: ABSOLUTE LYMPHOCYTES# (MANUAL) 1.2 10^3/uL (0.5-4.7); ABSOLUTE MONOCYTES # (MANUAL) 0.4 10^3/uL (0.1-1.4); BAND NEUTROPHILS % (MANUAL) 2 % (3-5); BASOPHILS % (MANUAL) 0 % (0-2); EOSINOPHILS % (MANUAL) 0 % (0-6); LYMPHOCYTES % (MANUAL) 6 % (13-45); MONOCYTES % (MANUAL) 2 % (3-13); SEGMENTED NEUTROPHILS % (MAN) 90 % (42-78); TOTAL CELLS COUNTED 100
[2020-04-08 06:11] LABS: ANISOCYTOSIS 3+; HYPOCHROMASIA SLIGHT; PLATELET CLUMPS PRESENT; PLATELET COMMENT DECREASED; POIKILOCYTOSIS 1+; POLYCHROMASIA 1+; TOXIC GRANULATION SLIGHT; TOXIC VACUOLATION PRESENT
[2020-04-08] MEDS ORDERED: NORMAL SALINE 250 ML IV PRN ×2 (06:18)
--- NOTE | 2020-04-08 09:13 | PDOC CRITICAL CARE PROG REPORT ---
General Date:: 04/08/20 ICU Day:: 7 Ventilator Day:: 7 Hospital Day:: 17 Resuscitation Status: Full Code Events in the past 12 to 24 Hours:: No meaningful change. Review of systems relevant to events:: Pulmonary, psychiatric. Reason for ICU Addmission:: acute respiratory failure, covid -19 pneumonia, intubated. - Medications: Medications reviewed and adjusted accordingly: Yes Vasopressors:: None Sedation:: Fentanyl, versed. Physical Exam Vital Signs: Temp Pulse Resp BP Pulse Ox 98.4 F 98 26 H 135/82 H 92 04/08/20 03:35 04/07/20 18:00 04/08/20 04:00 04/08/20 03:25 04/08/20 04:08 Intake & Output 04/07/20 04/08/20 04/09/20 06:59 06:59 06:59 Intake Total 6554 4085 Output Total 4650 5900 Balance 1904 -1815 Weight 158.7 kg 158 kg Weight/Height Weight 158 kg Height 5 ft 3 in General appearance: PRESENT: no acute distress Head exam: PRESENT: atraumatic, normocephalic Eye exam: PRESENT: conjunctiva pink, EOMI, PERRLA. ABSENT: scleral icterus Ear exam: PRESENT: normal external ear exam Mouth exam: PRESENT: moist, tongue midline Respiratory exam: PRESENT: clear to auscultation reji, crackles - Dry, decreased breath sounds. ABSENT: rales, rhonchi, wheezes Cardiovascular exam: PRESENT: RRR. ABSENT: diastolic murmur, rubs, systolic murmur GI/Abdominal exam: PRESENT: normal bowel sounds, soft. ABSENT: distended, guarding, mass, organolmegaly, rebound, tenderness Rectal exam: PRESENT: deferred Extremities exam: PRESENT: full ROM. ABSENT: calf tenderness, clubbing, pedal edema Musculoskeletal exam: PRESENT: normal inspection Neurological exam: PRESENT: other - No movement. ? sedation. She also has no doll's eyes reflex. Skin exam: PRESENT: dry, intact, warm. ABSENT: cyanosis, rash Tubes/Lines: PRESENT: Endotracheal Tube, Nasogastic Tube Laboratory/Radiographs Laboratory Results: 04/08/20 04:35 04/08/20 04:35 04/08/20 04/08/20 04/08/20 04:35 04:35 04:35 WBC 19.6 H RBC 2.76 L Hgb 6.4 L Hct 20.1 L MCV 73 L MCH 23.3 L MCHC 32.0 RDW 28.5 H Plt Count 112 L Seg Neutrophils % Not Reportable Carbonic Acid 1.39 H HCO3/H2CO3 Ratio 21:1 ABG pH 7.42 ABG pCO2 46.1 H ABG pO2 61.3 L ABG HCO3 29.2 H ABG O2 Saturation 91.8 L ABG Base Excess 4.0 FiO2 100% Sodium 127.7 L Potassium 4.4 Chloride 101 Carbon Dioxide 15 L Anion Gap 12 BUN 14 Creatinine 0.23 L Est GFR ( Amer) > 60 Glucose 164 H Calcium 7.6 L 03/21/20 21:58 Troponin I < 0.012 Impressions: Chest X-Ray 04/03/20 17:00 IMPRESSION: No change in diffuse bilateral alveolar and interstitial infiltrates Stable cardiomegaly Tubes and lines in good positioning All labs, radiographs, diagnostic studies and EKGs were personally reviewed: Yes In addition, reports of radiographic and diagnostic studies were read: Yes Assessment and Plan - Diagnosis (1) Pneumonia due to COVID-19 virus Is this a current diagnosis for this admission?: Yes Plan: Her peak airway pressures are steadily climbing to a level of 50. Will decrease pressure to 30. Place in reverse trendelenberg to try to decrease pressure on di aphragm. (2) Morbid obesity with BMI of 50.0-59.9, adult Is this a current diagnosis for this admission?: Yes Plan: Impeding her diaphragmatic excursion and a risk factor for COVID mortality. (3) Schizophrenia Qualifiers: Schizophrenia type: unspecified Qualified Code(s): F20.9 - Schizophrenia, unspecified Is this a current diagnosis for this admission?: Yes Plan: Assess when extubated for out patient treatment. Plan Summary: Keep off rocuronium. Maintain sedattion. Reverse trendelenberg. Wean as tolerated but not today. Pressure control adjusted and peak pressures down to 32cm. Critical Time Critical Time (minutes): 35 Level of Care: ICU Anticipated discharge: SNF Anticipated DC Timeframe: Other -: 1. The care of a critical patient is a dynamic process. This note is a sales utility representative synopsis but static in nature. The timeframe for treatments given in order is not necessarily the actual time these treatments may have been done. 2. This patient requires critical care secondary to ongoing requirements for therapy not offered or safe outside the critical care environment. Transfer to a lower level of care will result in altered life or limb morbidity and mortality. 3. Multidisciplinary rounds completed. 4. ABCDE bundle addressed.
[2020-04-08] MEDS: LABETALOL HCL INJ 20 MG/4 ML DISP.SYRIN IV PRN ×2 (10:00→17:24)
[2020-04-08] MEDS: ZINC SULFATE 220 MG CAPSULE NG SCH (10:00)
[2020-04-08] MEDS: ASCORBIC ACID 500 MG TABLET NG SCH ×2 (10:00→17:24)
[2020-04-08] MEDS: CHOLECALCIFEROL (D3) 1,000 UNIT (25 MCG) TABLET NG SCH (10:00)
[2020-04-08] MEDS ORDERED: HYDRALAZINE HCL INJ/PF 20 MG/1 ML SDV IV PRN (20:07)
[2020-04-08] MEDS ORDERED: DEXTROSE 50%-WATER 25 GM/50 ML DISP.SYRIN IV PRN ×2 (20:08)
[2020-04-08] MEDS ORDERED: DEXTROSE 40% GEL 15 GM TUBE PO PRN ×2 (20:08)
[2020-04-08] MEDS ORDERED: GLUCAGON,HUMAN RECOMB 1 MG INJ IM PRN (20:08)
[2020-04-08 21:41] LABS: HEMATOCRIT 31.9 % (36.0-47.0); MEAN CORPUSCULAR HEMOGLOBIN 23.3 pg (27.0-33.4); MEAN CORPUSCULAR HGB CONC 31.9 g/dL (32.0-36.0); MEAN CORPUSCULAR VOLUME 73 fl (80-97); PLATELET COUNT 196 10^3/uL (150-450); RED BLOOD COUNT 4.36 10^6/uL (3.72-5.28); RED CELL DISTRIBUTION WIDTH 27.7 % (11.5-14.0); WHITE BLOOD COUNT 20.7 10^3/uL (4.0-10.5)
[2020-04-08] MEDS ORDERED: INSULIN REG, HUMAN 100 UNIT/ML 3 ML VIAL (PYX) ONE (21:45)
[2020-04-08 21:56] LABS: HEMOGLOBIN 10.2 g/dL (12.0-15.5)
[2020-04-08 21:59] LABS: ABSOLUTE LYMPHOCYTES# (MANUAL) 1.2 10^3/uL (0.5-4.7); ABSOLUTE MONOCYTES # (MANUAL) 1.9 10^3/uL (0.1-1.4); BAND NEUTROPHILS % (MANUAL) 1 % (3-5); BASOPHILS % (MANUAL) 0 % (0-2); EOSINOPHILS % (MANUAL) 0 % (0-6); LYMPHOCYTES % (MANUAL) 6 % (13-45); MONOCYTES % (MANUAL) 9 % (3-13); NUCLEATED RED BLOOD CELLS 1 /100 WBC (0); SEGMENTED NEUTROPHILS % (MAN) 84 % (42-78); TOTAL CELLS COUNTED 100
[2020-04-08 22:01] LABS: POLYCHROMASIA 1+; TOXIC GRANULATION 1+
[2020-04-08 22:02] LABS: ANISOCYTOSIS 3+; OVALOCYTES 2+; PLATELET COMMENT ADEQUATE; POIKILOCYTOSIS 3+; SCHISTOCYTES 2+; TEAR DROP CELLS 2+
[2020-04-08] MEDS: NORMAL SALINE 100 ML with INSULIN REGULAR, HUMAN 100 UNIT IV PRN ×2 (22:12)
[2020-04-09] MEDS: INSULIN REG, HUMAN 100 UNIT/ML 3 ML VIAL (PYX) SUBCUT SCH ×4 (00:12→17:07)
[2020-04-09] MEDS: INSULIN GLARGINE,HUM.REC.ANLOG 1,000 UNIT/10 ML VIAL SUBCUT SCH ×3 (00:12→22:35)
[2020-04-09] MEDS: DEXMEDETOMIDINE IN 0.9 % NACL 400 MCG/100 ML RTUPB IV PRN ×12 (00:34→22:34)
[2020-04-09] MEDS: LORAZEPAM INJ 2 MG/1 ML VIAL IV PRN (01:54)
[2020-04-09 03:12] LABS: ARTERIAL BLOOD BASE EXCESS 2.2 mmol/L; ARTERIAL BLOOD H2CO3 1.15 mmol/L (1.05-1.35); ARTERIAL BLOOD HCO3 26.1 mmol/L (20-24); ARTERIAL BLOOD O2 SATURATION 93.5 % (94-98); ARTERIAL BLOOD PCO2 38.3 mmHg (35-45); ARTERIAL BLOOD PH 7.45 (7.35-7.45); ARTERIAL BLOOD PO2 64.1 mmHg (80-100); ARTERIAL BLOOD TOTAL CO2 27.3 mmol/L (21-25); HEMATOCRIT 30.8 % (36.0-47.0); HEMOGLOBIN 9.7 g/dL (12.0-15.5); MEAN CORPUSCULAR HEMOGLOBIN 22.8 pg (27.0-33.4); MEAN CORPUSCULAR HGB CONC 31.3 g/dL (32.0-36.0); MEAN CORPUSCULAR VOLUME 73 fl (80-97); PLATELET COUNT 173 10^3/uL (150-450); RED BLOOD COUNT 4.24 10^6/uL (3.72-5.28); RED CELL DISTRIBUTION WIDTH 27.9 % (11.5-14.0); WHITE BLOOD COUNT 18.3 10^3/uL (4.0-10.5)
[2020-04-09 03:13] LABS: ARTERIAL BLOOD FIO2 100%
[2020-04-09 03:29] LABS: ANION GAP 7 (5-19); BLOOD UREA NITROGEN 31 mg/dL (7-20); CHLORIDE 102 mmol/L (98-107); GLUCOSE 326 mg/dL (75-110); POTASSIUM 4.9 mmol/L (3.6-5.0)
[2020-04-09 03:37] LABS: CARBON DIOXIDE 31 mmol/L (22-30)
[2020-04-09] MEDS: FENTANYL CITRATE/PF 600 MCG/60 ML BAG IV PRN ×5 (04:00→23:35)
[2020-04-09 04:03] LABS: ABSOLUTE LYMPHOCYTES# (MANUAL) 1.3 10^3/uL (0.5-4.7); ABSOLUTE MONOCYTES # (MANUAL) 1.1 10^3/uL (0.1-1.4); BASOPHILS % (MANUAL) 0 % (0-2); EOSINOPHILS % (MANUAL) 0 % (0-6); LYMPHOCYTES % (MANUAL) 7 % (13-45); MONOCYTES % (MANUAL) 6 % (3-13); NUCLEATED RED BLOOD CELLS 1 /100 WBC (0); SEGMENTED NEUTROPHILS % (MAN) 87 % (42-78); TOTAL CELLS COUNTED 100
[2020-04-09 04:06] LABS: ANISOCYTOSIS 3+; POIKILOCYTOSIS 3+; TOXIC GRANULATION 1+; TOXIC VACUOLATION PRESENT
[2020-04-09 04:07] LABS: OVALOCYTES 2+; PLATELET COMMENT ADEQUATE; SCHISTOCYTES SLIGHT; TEAR DROP CELLS 1+
[2020-04-09] MEDS ORDERED: INSULIN REG, HUMAN 100 UNIT/ML 3 ML VIAL (PYX) ONE (04:29)
[2020-04-09] MEDS: NORMAL SALINE 100 ML with INSULIN REGULAR, HUMAN 100 UNIT IV PRN ×4 (06:05→17:08)
[2020-04-09] MEDS: METHYLPREDNISOLONE INJ 40 MG/1 ML SDV IV SCH ×3 (06:50→22:34)
[2020-04-09] MEDS: HEPARIN SOD (PORCINE) 5,000 UNIT/ML 1 ML VIAL SUBCUT SCH ×3 (06:50→22:34)
[2020-04-09] MEDS: MIDAZOLAM HCL 50 MG/100 ML RTUINJ IV PRN ×4 (06:55→22:40)
[2020-04-09] MEDS: ASCORBIC ACID 500 MG TABLET NG SCH ×2 (11:06→17:06)
[2020-04-09] MEDS: FAMOTIDINE INJ/PF 20 MG/2 ML SDV IV SCH ×2 (11:07→22:34)
[2020-04-09] MEDS: ZINC SULFATE 220 MG CAPSULE NG SCH (11:07)
[2020-04-09] MEDS: CHOLECALCIFEROL (D3) 1,000 UNIT (25 MCG) TABLET NG SCH (11:07)
[2020-04-09] MEDS: AMINO AC/PROTEIN HYDR/WHEY PRO 11 GM/45 ML PKT NG SCH ×4 (11:07→22:34)
--- NOTE | 2020-04-09 11:26 | RADIOLOGY REPORT (SQ) ---
EXAM DESCRIPTION: KUB/ABDOMEN (SINGLE VIEW) IMAGES COMPLETED DATE/TIME: 04/09/2020 11:13 am REASON FOR STUDY: constipation COMPARISON: None. NUMBER OF VIEWS: One view. TECHNIQUE: Supine radiographic image of the abdomen acquired. LIMITATIONS: None. FINDINGS: BOWEL GAS PATTERN: The study demonstrates a gasless abdomen. The study is limited due to body habitus. NG tube is in place. Tip overlies the mid abdomen. Exact position cannot be determin ed. CALCIFICATIONS: No suspicious calcifications. SOFT TISSUES: No gross mass or suggestion of organomegaly. HARDWARE: None in the abdomen. BONES: No acute fracture. No worrisome bone lesions. OTHER: No other significant finding. IMPRESSION: Essentially gasless abdomen. This may be secondary to large volume ascites. This can b e secondary to fluid filled small bowel and small-bowel obstruction. Clinical correlation is needed. Gasless abdomen can also be seen with gastroenteritis TECHNICAL DOCUMENTATION: JOB ID: [id number] 2010 [employer]- All Rights Reserved Reading location - IP/workstation name: [email or web address]
[2020-04-09] MEDS ORDERED: LORAZEPAM INJ 2 MG/1 ML VIAL IV PRN (11:47)
[2020-04-09] MEDS ORDERED: SULFAMETHOXAZOLE/TRIMETHOPRIM 320 MG in DEXTROSE 5%-WATER 500 ML IV SCH (12:00)
[2020-04-09 12:56] LABS: ARTERIAL BLOOD H2CO3 1.35 mmol/L (1.05-1.35); ARTERIAL BLOOD HCO3 31.6 mmol/L (20-24); ARTERIAL BLOOD O2 SATURATION 92.8 % (94-98); ARTERIAL BLOOD PH 7.46 (7.35-7.45); ARTERIAL BLOOD PO2 61.8 mmHg (80-100)
[2020-04-09 12:57] LABS: ARTERIAL BLOOD FIO2 100%
[2020-04-09] MEDS: POLYETHYLENE GLYCOL 3350 POWDER 17 GM/1 PACKET NG PRN (15:02)
--- NOTE | 2020-04-09 17:25 | PDOC CRITICAL CARE PROG REPORT ---
General Date:: 04/09/20 ICU Day:: 10 Ventilator Day:: 10 Hospital Day:: 19 Resuscitation Status: Full Code Events in the past 12 to 24 Hours:: This 44-year-old -[place] female [facility] with complaints of possible presyncope versus syncope in addition to fever, chills, productive cough, dyspnea and exertional dyspnea. She has a history of psychiatric disorders and is known to be a difficult historian. Nonetheless, the patient also was known to have been diagnosed with COVID-19 pneumonia on 03/17/2020 and had subsequently been evaluated in the emergency department. She was apparently discharged home with prescriptions for azithromycin and other medications for symptomatic treatment. She returned with worsening shortness of breath and newly demonstrating supplemental oxygen requirement. 04/09: Remains intubated. Sedated with Precedex/Versed/fentanyl. On pressure control mode with peak and plateau pressures in the 40s. ABG this a.m.: 7.45/38/64. WBC 20.7>18.3. On Glucerna at 30 mL/h. Nurse reports she has had no bowel movement for several days. Review of systems relevant to events:: Pulmonary, psychiatric. Reason for ICU Addmission:: acute respiratory failure, covid -19 pneumonia, intubated. - Medications: Medications reviewed and adjusted accordingly: Yes Vasopressors:: None Sedation:: Precedex/fentanyl/Versed Physical Exam Vital Signs: Temp Pulse Resp BP Pulse Ox 99.5 F 82 24 H 142/93 H 91 L 04/09/20 12:00 04/09/20 07:00 04/09/20 14:00 04/09/20 13:48 04/09/20 14:00 Intake & Output 04/08/20 04/09/20 04/10/20 06:59 06:59 06:59 Intake Total 4757 4257 439 Output Total 3621 8525 1525 [facility] [phone] Weight 158 kg 153.9 kg Weight/Height Weight 153.9 kg Height 1.6 m General appearance: PRESENT: no acute distress, morbidly obese, well-developed, well-nourished Head exam: PRESENT: atraumatic, normocephalic Eye exam: PRESENT: conjunctiva pink, EOMI, PERRLA. ABSENT: scleral icterus Mouth exam: PRESENT: moist, tongue midline Neck exam: ABSENT: carotid bruit, JVD, lymphadenopathy, thyromegaly Respiratory exam: PRESENT: decreased breath sounds. ABSENT: rales, rhonchi, wheezes Cardiovascular exam: PRESENT: RRR. ABSENT: diastolic murmur, rubs, systolic murmur Pulses: PRESENT: normal dorsalis pedis pul GI/Abdominal exam: PRESENT: normal bowel sounds, soft. ABSENT: distended, guarding, mass, organolmegaly, rebound, tenderness Gentrourinary exam: PRESENT: indwelling catheter Extremities exam: PRESENT: full ROM. ABSENT: calf tenderness, clubbing, pedal edema Musculoskeletal exam: PRESENT: normal inspection. ABSENT: deformity Neurological exam: PRESENT: altered Psychiatric exam: ABSENT: agitated, anxious Skin exam: PRESENT: dry, intact, warm. ABSENT: cyanosis, rash Tubes/Lines: PRESENT: Endotracheal Tube, Central Line - Left IJ (insertion 03/31), Nasogastic Tube Laboratory/Radiographs Laboratory Results: 04/09/20 02:25 04/09/20 02:25 04/08/20 04/08/20 04/08/20 12:05 19:05 21:00 WBC Cancelled 20.7 H RBC Cancelled 4.36 Hgb Cancelled 10.2 L D Hct Cancelled 31.9 L MCV Cancelled 73 L MCH Cancelled 23.3 L MCHC Cancelled 31.9 L RDW Cancelled 27.7 H Plt Count Cancelled 196 Seg Neutrophils % Cancelled Not Reportable Carbonic Acid HCO3/H2CO3 Ratio ABG pH ABG pCO2 ABG pO2 ABG HCO3 ABG O2 Saturation ABG Base Excess FiO2 Sodium Potassium Chloride Carbon Dioxide Anion Gap BUN Creatinine Est GFR ( Amer) Glucose Calcium Blood Type O POSITIVE Antibody Screen NEGATIVE 04/09/20 04/09/20 04/09/20 02:25 02:25 02:25 WBC 18.3 H RBC 4.24 Hgb 9.7 L Hct 30.8 L MCV 73 L MCH 22.8 L MCHC 31.3 L RDW 27.9 H Plt Count 173 Seg Neutrophils % Not Reportable Carbonic Acid 1.15 HCO3/H2CO3 Ratio 22:1 ABG pH 7.45 ABG pCO2 38.3 ABG pO2 64.1 L ABG HCO3 26.1 H ABG O2 Saturation 93.5 L ABG Base Excess 2.2 FiO2 100% Sodium 140.0 Potassium 4.9 Chloride 102 Carbon Dioxide 31 H D Anion Gap 7 BUN 31 H Creatinine 0.62 Est GFR ( Amer) > 60 Glucose 326 H Calcium 10.0 Blood Type Antibody Screen 04/09/20 12:30 WBC RBC Hgb Hct MCV MCH MCHC RDW Plt Count Seg Neutrophils % Carbonic Acid 1.35 HCO3/H2CO3 Ratio 23:1 ABG pH 7.46 H ABG pCO2 45.0 ABG pO2 61.8 L ABG HCO3 31.6 H ABG O2 Saturation 92.8 L ABG Base Excess 7.0 FiO2 100% Sodium Potassium Chloride Carbon Dioxide Anion Gap BUN Creatinine Est GFR ( Amer) Glucose Calcium Blood Type Antibody Screen 03/21/20 21:58 Troponin I < 0.012 Impressions: Chest X-Ray 04/03/20 17:00 IMPRESSION: No change in diffuse bilateral alveolar and interstitial infiltrates Stable cardiomegaly Tubes and lines in good positioning KUB X-Ray 04/09/20 00:00 IMPRESSION: Essentially gasless abdomen. This may be secondary to large volume ascites. This can be secondary to fluid filled small bowel and small-bowel obstruction. Clinical correlation is needed. Gasless abdomen can also be seen with gastroenteritis All labs, radiographs, diagnostic studies and EKGs were personally reviewed: Yes In addition, reports of radiographic and diagnostic studies were read: Yes Assessment and Plan - Diagnosis (1) Acute respiratory failure with hypoxia and hypercapnia Is this a current diagnosis for this admission?: Yes Plan: * Titrate vent settings based on ABG results. * Overall, initial goals of ventilator management will need to be to decrease peak and plateau pressures. Currently, she has tidal volumes in excess of 550 mL. Based on her height of 160 cm, her 6 cc/kg IBW would only be 320 mL. Based on her high minute ventilation, it may not be feasible to immediately decrease her tidal volume to 320 mL. Nonetheless, overall decrease in pressures and decrease in tidal volume should be a relatively protective intervention. (2) Pneumonia due to COVID-19 virus Is this a current diagnosis for this admission?: Yes Plan: * Currently on Solu-Medrol 40 mg IV every 8 hours. Change to Decadron 6 mg IV every 12 hours. (3) Normocytic anemia Is this a current diagnosis for this admission?: Yes Plan: * Likely exacerbated by her recent menstrual flow phase. * Monitor hemoglobin. * Thus far, during his hospitalization, the patient has received 3 units PRBC: 2 units on 03/26, 1 unit on 04/08. (4) Schizophrenia Qualifiers: Schizophrenia type: unspecified Qualified Code(s): F20.9 - Schizophrenia, unspecified Is this a current diagnosis for this admission?: Yes Plan: * Assess when extubated for out patient treatment. (5) Leukocytosis Qualifiers: Leukocytosis type: unspecified Qualified Code(s): D72.829 - Elevated white blood cell count, unspecified Is this a current diagnosis for this admission?: Yes (6) Constipation Qualifiers: Constipation type: slow transit constipation Qualified Code(s): K59.01 - Slow transit constipation Is this a current diagnosis for this admission?: Yes Plan: * Check KUB. * Start MiraLAX. Critical Time Critical Time (minutes): 60 Level of Care: ICU -: 1. The care of a critical patient is a dynamic process. This note is a personal financial representative synopsis but static in nature. The timeframe for treatments given in order is not necessarily the actual time these treatments may have been done. 2. This patient requires critical care secondary to ongoing requirements for therapy not offered or safe outside the critical care environment. Transfer to a lower level of care will result in altered life or limb morbidity and mortality. 3. Multidisciplinary rounds completed. 4. ABCDE bundle addressed.
[2020-04-09 17:28] LABS: ARTERIAL BLOOD FIO2 100%; ARTERIAL BLOOD H2CO3 1.38 mmol/L (1.05-1.35); ARTERIAL BLOOD HCO3 29.1 mmol/L (20-24); ARTERIAL BLOOD O2 SATURATION 96.7 % (94-98); ARTERIAL BLOOD PH 7.42 (7.35-7.45); ARTERIAL BLOOD PO2 87.1 mmHg (80-100); ARTERIAL BLOOD TOTAL CO2 30.5 mmol/L (21-25)
[2020-04-09] MEDS: ALBUTEROL SULFATE 0.083% NEB 2.5 MG/3 ML AMPUL NEB SCH (20:22)
[2020-04-09] MEDS: BUDESONIDE NEB 0.25 MG/2 ML AMPUL NEB SCH (20:22)
[2020-04-10] MEDS: DEXMEDETOMIDINE IN 0.9 % NACL 400 MCG/100 ML RTUPB IV PRN ×15 (00:15→23:01)
[2020-04-10] MEDS: INSULIN REG, HUMAN 100 UNIT/ML 3 ML VIAL (PYX) SUBCUT SCH ×5 (00:53→23:20)
[2020-04-10] MEDS: ALBUTEROL SULFATE 0.083% NEB 2.5 MG/3 ML AMPUL NEB SCH ×4 (02:45→20:09)
[2020-04-10] MEDS: FENTANYL CITRATE/PF 600 MCG/60 ML BAG IV PRN ×5 (03:03→22:33)
[2020-04-10 03:24] LABS: HEMATOCRIT 30.5 % (36.0-47.0); HEMOGLOBIN 9.6 g/dL (12.0-15.5); MEAN CORPUSCULAR HEMOGLOBIN 22.8 pg (27.0-33.4); MEAN CORPUSCULAR HGB CONC 31.5 g/dL (32.0-36.0); MEAN CORPUSCULAR VOLUME 72 fl (80-97); PLATELET COUNT 171 10^3/uL (150-450); RED BLOOD COUNT 4.22 10^6/uL (3.72-5.28); RED CELL DISTRIBUTION WIDTH 28.1 % (11.5-14.0); WHITE BLOOD COUNT 17.3 10^3/uL (4.0-10.5)
[2020-04-10 03:25] LABS: ARTERIAL BLOOD BASE EXCESS 6.5 mmol/L; ARTERIAL BLOOD H2CO3 1.73 mmol/L (1.05-1.35); ARTERIAL BLOOD HCO3 32.9 mmol/L (20-24); ARTERIAL BLOOD O2 SATURATION 95.2 % (94-98); ARTERIAL BLOOD PCO2 57.4 mmHg (35-45); ARTERIAL BLOOD PH 7.38 (7.35-7.45); ARTERIAL BLOOD PO2 79.5 mmHg (80-100); ARTERIAL BLOOD TOTAL CO2 34.7 mmol/L (21-25)
[2020-04-10 03:27] LABS: ARTERIAL BLOOD FIO2 100%
[2020-04-10 03:39] LABS: BLOOD UREA NITROGEN 30 mg/dL (7-20); CALCIUM 10.2 mg/dL (8.4-10.2); GLUCOSE 89 mg/dL (75-110); POTASSIUM 5.1 mmol/L (3.6-5.0)
[2020-04-10] MEDS: MIDAZOLAM HCL 50 MG/100 ML RTUINJ IV PRN ×4 (03:40→21:45)
[2020-04-10 03:45] LABS: CARBON DIOXIDE 37 mmol/L (22-30); CHLORIDE 101 mmol/L (98-107)
[2020-04-10 03:50] LABS: POLYCHROMASIA SLIGHT
[2020-04-10 03:51] LABS: ANISOCYTOSIS 3+; HYPOCHROMASIA 1+; OVALOCYTES 1+; PLATELET COMMENT ADEQUATE; POIKILOCYTOSIS 2+; TARGET CELLS SLIGHT; TEAR DROP CELLS SLIGHT; TOXIC GRANULATION SLIGHT
[2020-04-10 04:14] LABS: ABSOLUTE LYMPHOCYTES# (MANUAL) 0.9 10^3/uL (0.5-4.7); ABSOLUTE MONOCYTES # (MANUAL) 1.2 10^3/uL (0.1-1.4); BAND NEUTROPHILS % (MANUAL) 1 % (3-5); BASOPHILS % (MANUAL) 0 % (0-2); EOSINOPHILS % (MANUAL) 0 % (0-6); LYMPHOCYTES % (MANUAL) 5 % (13-45); MONOCYTES % (MANUAL) 7 % (3-13); SEGMENTED NEUTROPHILS % (MAN) 87 % (42-78); TOTAL CELLS COUNTED 100
[2020-04-10 04:16] LABS: PHOSPHORUS 5.7 mg/dL (2.5-4.5)
[2020-04-10 04:21] LABS: ANION GAP 3 (5-19)
[2020-04-10] MEDS: HEPARIN SOD (PORCINE) 5,000 UNIT/ML 1 ML VIAL SUBCUT SCH ×3 (05:16→22:33)
[2020-04-10] MEDS: METHYLPREDNISOLONE INJ 40 MG/1 ML SDV IV SCH ×3 (05:16→22:34)
--- NOTE | 2020-04-10 08:52 | RADIOLOGY REPORT (SQ) ---
EXAM DESCRIPTION: CHEST SINGLE VIEW IMAGES COMPLETED DATE/TIME: 04/10/2020 5:54 am REASON FOR STUDY: ETT tube COMPARISON: 04/03/2020 EXAM PARAMETERS: NUMBER OF VIEWS: One view. TECHNIQUE: Single frontal radiographic view of the chest acquired. RADIATION DOSE: NA LIMITATIONS: None. FINDINGS: LUNGS AND PLEURA: Stable appearance to the diffuse bilateral alveolar and interstitial in filtrates. No pneumothorax. Small right pleural effusion suggested. MEDIASTINUM AND HILAR STRUCTURES: Stable appearance. HEART AND VASCULAR STRUCTURES: Cardiomegaly, stable finding. BONES: No acute findings. HARDWARE: Endotracheal tube, nasogastric tube and left jugular central venous catheter unchanged fin dings. The tip of the endotracheal tube is approximately 2.3 cm proximal to the daisy. OTHER: No other significant finding. IMPRESSION: 1. No significant interval changes since the prior study dated 04/03/2020. 2. Support tubes and lines are unchanged. TECHNICAL DOCUMENTATION: JOB ID: [id number] 2010 [employer]- All Rights Reserved Reading location - IP/workstation name: [email or web address]
[2020-04-10] MEDS: BUDESONIDE NEB 0.25 MG/2 ML AMPUL NEB SCH ×2 (09:09→20:09)
[2020-04-10] MEDS ORDERED: FUROSEMIDE INJ/PF 40 MG/4 ML SDV IV ONE ×2 (14:34→15:30)
[2020-04-10] MEDS: INSULIN GLARGINE,HUM.REC.ANLOG 1,000 UNIT/10 ML VIAL SUBCUT SCH ×2 (14:50→22:34)
[2020-04-10] MEDS ORDERED: FUROSEMIDE INJ/PF 40 MG/4 ML SDV ONE (14:54)
[2020-04-10] MEDS: BISACODYL 10 MG SUPP.RECT PR PRN (15:23)
[2020-04-10] MEDS: CHOLECALCIFEROL (D3) 1,000 UNIT (25 MCG) TABLET NG SCH (15:23)
[2020-04-10] MEDS: FAMOTIDINE INJ/PF 20 MG/2 ML SDV IV SCH ×2 (15:24→22:32)
[2020-04-10] MEDS: ZINC SULFATE 220 MG CAPSULE NG SCH (15:24)
[2020-04-10] MEDS: METOCLOPRAMIDE HCL INJ/PF 10 MG/2 ML SDV IV SCH ×3 (15:24→23:21)
[2020-04-10] MEDS: ASCORBIC ACID 500 MG TABLET NG SCH ×2 (15:24→17:47)
[2020-04-10] MEDS: AMINO AC/PROTEIN HYDR/WHEY PRO 11 GM/45 ML PKT NG SCH ×4 (15:25→22:33)
--- NOTE | 2020-04-10 16:04 | RADIOLOGY REPORT (SQ) ---
EXAM DESCRIPTION: U/S ABDOMEN LIMITED W/O DOP IMAGES COMPLETED DATE/TIME: 04/10/2020 3:53 pm REASON FOR STUDY: gasless abdomen, ascites COMPARISON: None. TECHNIQUE: Limited Static and real time de santiago scale imaging performed of the 4 abdominal quadrants an d the midline. LIMITATIONS: None. FINDINGS: ASCITES: None identified. OTHER: No other significant finding. IMPRESSION: NO EVIDENCE FOR ASCITES. TECHNICAL DOCUMENTATION: JOB ID: [id number] 2010 [employer]- All Rights Reserved Reading location - IP/workstation name: [email or web address]
[2020-04-10] MEDS: NORMAL SALINE 100 ML with INSULIN REGULAR, HUMAN 100 UNIT IV PRN ×2 (19:53)
--- NOTE | 2020-04-10 20:06 | PDOC CRITICAL CARE PROG REPORT ---
General Date:: 04/10/20 ICU Day:: 11 Ventilator Day:: 11 Hospital Day:: 20 Resuscitation Status: Full Code Events in the past 12 to 24 Hours:: This 44-year-old -[place] female presented to [facility] emergency department on 03/21/2020 with complaints of possible presyncope versus syncope in addition to fever, chills, productive cough, dyspnea and exertional dyspnea. She has a history of psychiatric disorders and is known to be a difficult historian. Nonetheless, the patient also was known to have been diagnosed with COVID-19 pneumonia on 03/17/2020 and had subsequently been evaluated in the emergency department. She was apparently discharged home with prescriptions for azithromycin and other medications for symptomatic treatment. She returned with worsening shortness of breath and newly demonstrating supplemental oxygen requirement. 04/09: Remains intubated. Sedated with Precedex/Versed/fentanyl. On pressure control mode with peak and plateau pressures in the 40s. ABG this a.m.: 7.45/38/64. WBC 20.7>18.3. On Glucerna at 30 mL/h. Nurse reports she has had no bowel movement for several days. 04/10: No events reported overnight. Remains intubated. Still on Precedex/Cordelia sed/fentanyl for sedation. On pressure control ABG this a.m.: 7.38/57/80. WBC 18.317.3. On insulin infusion for glucose control. On Glucerna + Prosource. Creatinine 0.7. KUB obtained yesterday showed a gasless abdomen, incongruent with physical exam (possibly due to morbid obesity). Still no BM. Review of systems relevant to events:: Pulmonary, psychiatric. Reason for ICU Addmission:: acute respiratory failure, covid -19 pneumonia, int ubated. - Medications: Medications reviewed and adjusted accordingly: Yes Vasopressors:: None Sedation:: Precedex/fentanyl/Versed Physical Exam Vital Signs: Temp Pulse Resp BP Pulse Ox 99.2 F 85 23 H 132/89 H 91 L 04/09/20 20:00 04/10/20 02:45 04/10/20 06:00 04/10/20 05:50 04/10/20 06:00 Intake & Output 04/09/20 04/10/20 04/11/20 06:59 06:59 06:59 Intake Total 4251 1742 112 Output Total 2155 4395 Balance -4911 -2357 112 Weight 153.9 kg 154.1 kg Weight/Height Weight 154.1 kg Height 1.6 m Laboratory/Radiographs Laboratory Results: 04/10/20 03:05 04/10/20 03:05 04/09/20 04/09/20 04/10/20 12:30 16:55 03:05 WBC 17.3 H RBC 4.22 Hgb 9.6 L Hct 30.5 L MCV 72 L MCH 22.8 L MCHC 31.5 L RDW 28.1 H Plt Count 171 Seg Neutrophils % Not Reportable Carbonic Acid 1.35 1.38 H HCO3/H2CO3 Ratio 23:1 21:1 ABG pH 7.46 H 7.42 ABG pCO2 45.0 46.0 H ABG pO2 61.8 L 87.1 ABG HCO3 31.6 H 29.1 H ABG O2 Saturation 92.8 L 96.7 ABG Base Excess 7.0 4.0 FiO2 100% 100% Sodium Potassium Chloride Carbon Dioxide Anion Gap BUN Creatinine Est GFR ( Amer) Glucose Calcium Phosphorus Magnesium 04/10/20 04/10/20 03:05 03:05 WBC RBC Hgb Hct MCV MCH MCHC RDW Plt Count Seg Neutrophils % Carbonic Acid 1.73 H HCO3/H2CO3 Ratio 19:1 ABG pH 7.38 ABG pCO2 57.4 H ABG pO2 79.5 L ABG HCO3 32.9 H ABG O2 Saturation 95.2 ABG Base Excess 6.5 FiO2 100% Sodium 140.7 Potassium 5.1 H Chloride 101 Carbon Dioxide 37 H Anion Gap 3 L BUN 30 H Creatinine 0.66 Est GFR ( Amer) > 60 Glucose 89 Calcium 10.2 Phosphorus 5.7 H Magnesium 2.2 03/21/20 21:58 Troponin I < 0.012 Impressions: KUB X-Ray 04/09/20 00:00 IMPRESSION: Essentially gasless abdomen. This may be secondary to large volume ascites. This can be secondary to fluid filled small bowel and small-bowel obstruction. Clinical correlation is needed. Gasless abdomen can also be seen with gastroenteritis Assessment and Plan - Diagnosis (1) Acute respiratory failure with hypoxia and hypercapnia Is this a current diagnosis for this admission?: Yes Plan: * CVP monitoring. * Titrate vent settings based on ABG results. * Overall, initial goals of ventilator management will need to be to decrease peak and plateau pressures. Currently, she has tidal volumes in excess of 550 mL. Based on her height of 160 cm, her 6 cc/kg IBW would only be 320 mL. Based on her high minute ventilation, it may not be feasible to immediately decrease her tidal volume to 320 mL. Nonetheless, overall decrease in pressures and decrease in tidal volume should be a relatively protective intervention. * Hold neuromuscular blockade. (2) Pneumonia due to COVID-19 virus Is this a current diagnosis for this admission?: Yes Plan: * Currently on Solu-Medrol 40 mg IV every 8 hours. Change to Decadron 6 mg IV every 12 hours. (3) Normocytic anemia Is this a current diagnosis for this admission?: Yes (4) Schizophrenia Qualifiers: Schizophrenia type: unspecified Qualified Code(s): F20.9 - Schizophrenia, unspecified Is this a current diagnosis for this admission?: Yes (5) Leukocytosis Qualifiers: Leukocytosis type: unspecified Qualified Code(s): D72.829 - Elevated white blood cell count, unspecified Is this a current diagnosis for this admission?: Yes (6) Constipation Qualifiers: Constipation type: slow transit constipation Qualified Code(s): K59.01 - Slow transit constipation Is this a current diagnosis for this admission?: Yes Plan: * Add Colace. * Add Reglan. Critical Time Critical Time (minutes): 60 Level of Care: ICU -: 1. The care of a critical patient is a dynamic process. This note is a repre sentative synopsis but static in nature. The timeframe for treatments given in order is not necessarily the actual time these treatments may have been done. 2. This patient requires critical care secondary to ongoing requirements for therapy not offered or safe outside the critical care environment. Transfer to a lower level of care will result in altered life or limb morbidity and mortality. 3. Multidisciplinary rounds completed. 4. ABCDE bundle addressed.
[2020-04-10 20:14] LABS: ARTERIAL BLOOD BASE EXCESS 7.6 mmol/L; ARTERIAL BLOOD H2CO3 1.24 mmol/L (1.05-1.35); ARTERIAL BLOOD HCO3 31.4 mmol/L (20-24); ARTERIAL BLOOD O2 SATURATION 88.7 % (94-98); ARTERIAL BLOOD PCO2 41.3 mmHg (35-45); ARTERIAL BLOOD PO2 50.5 mmHg (80-100); ARTERIAL BLOOD TOTAL CO2 32.7 mmol/L (21-25)
[2020-04-10 20:16] LABS: ARTERIAL BLOOD FIO2 100%
[2020-04-11] MEDS: DEXMEDETOMIDINE IN 0.9 % NACL 400 MCG/100 ML RTUPB IV PRN ×12 (00:42→22:17)
[2020-04-11] MEDS: ALBUTEROL SULFATE 0.083% NEB 2.5 MG/3 ML AMPUL NEB SCH ×4 (02:06→20:22)
[2020-04-11] MEDS: MIDAZOLAM HCL 50 MG/100 ML RTUINJ IV PRN ×5 (02:37→23:16)
[2020-04-11] MEDS: FENTANYL CITRATE/PF 600 MCG/60 ML BAG IV PRN ×4 (03:11→21:54)
[2020-04-11 03:18] LABS: ARTERIAL BLOOD BASE EXCESS 6.9 mmol/L; ARTERIAL BLOOD H2CO3 1.37 mmol/L (1.05-1.35); ARTERIAL BLOOD HCO3 31.6 mmol/L (20-24); ARTERIAL BLOOD PCO2 45.6 mmHg (35-45); ARTERIAL BLOOD PH 7.46 (7.35-7.45); ARTERIAL BLOOD PO2 53.2 mmHg (80-100)
[2020-04-11 03:19] LABS: ARTERIAL BLOOD FIO2 100%
[2020-04-11 03:36] LABS: BLOOD UREA NITROGEN 36 mg/dL (7-20); CALCIUM 10.1 mg/dL (8.4-10.2); GLUCOSE 184 mg/dL (75-110); PHOSPHORUS 5.5 mg/dL (2.5-4.5); POTASSIUM 4.6 mmol/L (3.6-5.0)
[2020-04-11 03:41] LABS: CARBON DIOXIDE 38 mmol/L (22-30); CHLORIDE 98 mmol/L (98-107)
[2020-04-11 03:43] LABS: PREALBUMIN 19.6 mg/dL (17.6-36.0)
[2020-04-11 03:46] LABS: ABSOLUTE LYMPHOCYTES (AUTO) 0.6 10^3/uL (0.5-4.7); ABSOLUTE MONOCYTES (AUTO) 0.9 10^3/uL (0.1-1.4); ABSOLUTE NEUT (AUTO) 9.9 10^3/uL (1.7-8.2); ANION GAP 1 (5-19); BASOPHILS % (AUTO) 0.1 % (0-2); HEMATOCRIT 30.7 % (36.0-47.0); HEMOGLOBIN 9.5 g/dL (12.0-15.5); LYMPHOCYTES % (AUTO) 5.2 % (13-45); MEAN CORPUSCULAR HEMOGLOBIN 22.6 pg (27.0-33.4); MEAN CORPUSCULAR HGB CONC 31.1 g/dL (32.0-36.0); MEAN CORPUSCULAR VOLUME 73 fl (80-97); MONOCYTES % (AUTO) 7.8 % (3-13); PLATELET COUNT 161 10^3/uL (150-450); RED BLOOD COUNT 4.23 10^6/uL (3.72-5.28); RED CELL DISTRIBUTION WIDTH 27.6 % (11.5-14.0); SEGMENTED NEUTROPHILS % (AUTO) 86.9 % (42-78); TOTAL CELLS COUNTED % (AUTO) 100 %; WHITE BLOOD COUNT 11.4 10^3/uL (4.0-10.5)
[2020-04-11 04:02] LABS: ANISOCYTOSIS 4+; HYPOCHROMASIA 1+; OVALOCYTES SLIGHT; POLYCHROMASIA 1+; TARGET CELLS SLIGHT; TOXIC GRANULATION 1+; TOXIC VACUOLATION PRESENT
[2020-04-11 04:03] LABS: PLATELET COMMENT ADEQUATE; POIKILOCYTOSIS SLIGHT; SCHISTOCYTES SLIGHT
[2020-04-11] MEDS: INSULIN REG, HUMAN 100 UNIT/ML 3 ML VIAL (PYX) SUBCUT SCH ×4 (05:03→23:21)
[2020-04-11] MEDS ORDERED: FUROSEMIDE INJ/PF 40 MG/4 ML SDV ONE (05:47)
[2020-04-11] MEDS ORDERED: FUROSEMIDE INJ/PF 40 MG/4 ML SDV IV ONE ×2 (06:00→12:17)
[2020-04-11] MEDS: HEPARIN SOD (PORCINE) 5,000 UNIT/ML 1 ML VIAL SUBCUT SCH ×3 (06:08→23:17)
[2020-04-11] MEDS: METHYLPREDNISOLONE INJ 40 MG/1 ML SDV IV SCH ×3 (06:08→23:17)
[2020-04-11] MEDS: METOCLOPRAMIDE HCL INJ/PF 10 MG/2 ML SDV IV SCH ×4 (06:08→23:26)
--- NOTE | 2020-04-11 08:33 | RADIOLOGY REPORT (SQ) ---
EXAM DESCRIPTION: CHEST SINGLE VIEW IMAGES COMPLETED DATE/TIME: 04/11/2020 6:21 am REASON FOR STUDY: ETT tube COMPARISON: AP view of the chest from 04/10/2020. EXAM PARAMETERS: NUMBER OF VIEWS: One view. TECHNIQUE: An AP view of the chest was obtained. RADIATION DOSE: NA LIMITATIONS: None. FINDINGS: LUNGS AND PLEURA: Unchanged appearance of the lungs and pleura. MEDIASTINUM AND HILAR STRUCTURES: Stable mediastinal and hilar contours. HEART AND VASCULAR STRUCTURES: Stable cardiac silhouette. BONES: No acute findings. HARDWARE: The tip of the endotracheal tube projects 2.5 cm above the daisy. The tip of the left IJ central venous catheter projects within the SVC. The tip of the enteric tube projects past the gastr oesophageal junction and outside the field of view of the radiograph. OTHER: No other finding. IMPRESSION: Tubes and lines as above. Otherwise unchanged radiographic appearance of the chest. TECHNICAL DOCUMENTATION: JOB ID: [id number] 2010 [employer]- All Rights Reserved Reading location - IP/workstation name: [email or web address]
[2020-04-11] MEDS: BUDESONIDE NEB 0.25 MG/2 ML AMPUL NEB SCH ×2 (08:49→20:22)
[2020-04-11] MEDS: ASCORBIC ACID 500 MG TABLET NG SCH ×2 (09:16→18:24)
[2020-04-11] MEDS: FAMOTIDINE INJ/PF 20 MG/2 ML SDV IV SCH ×2 (09:16→23:17)
[2020-04-11] MEDS: ZINC SULFATE 220 MG CAPSULE NG SCH (09:16)
[2020-04-11] MEDS: CHOLECALCIFEROL (D3) 1,000 UNIT (25 MCG) TABLET NG SCH (09:16)
[2020-04-11] MEDS: AMINO AC/PROTEIN HYDR/WHEY PRO 11 GM/45 ML PKT NG SCH ×4 (09:16→22:07)
[2020-04-11] MEDS: BISACODYL 10 MG SUPP.RECT PR PRN (13:27)
--- NOTE | 2020-04-11 13:46 | RADIOLOGY REPORT (SQ) ---
EXAM DESCRIPTION: KUB/ABDOMEN (SINGLE VIEW) IMAGES COMPLETED DATE/TIME: 04/11/2020 1:24 pm REASON FOR STUDY: constipation COMPARISON: AP view of the abdomen from 04/09/2020. NUMBER OF VIEWS: One view. TECHNIQUE: An AP supine view of the abdomen was obtained. LIMITATIONS: None. FINDINGS: BOWEL GAS PATTERN: Similar appearance of the abdomen with a relative paucity of bowel gas. CALCIFICATIONS: None. SOFT TISSUES: No acute gross abnormality. HARDWARE: The tip of the enteric tube projects within the gastric lumen. BONES: No acute osseous abnormality. OTHER: No other findings. IMPRESSION: 1. Similar appearance of the abdomen with a relative paucity of bowel gas. 2. The tip of the enteric tube projects within the gastric lumen. TECHNICAL DOCUMENTATION: JOB ID: [id number] 2010 [employer]- All Rights Reserved Reading location - IP/workstation name: [email or web address]
[2020-04-11] MEDS: INSULIN GLARGINE,HUM.REC.ANLOG 1,000 UNIT/10 ML VIAL SUBCUT SCH ×2 (16:25→22:07)
[2020-04-11] MEDS: NORMAL SALINE 100 ML with INSULIN REGULAR, HUMAN 100 UNIT IV PRN ×2 (18:26)
--- NOTE | 2020-04-11 20:41 | PDOC CRITICAL CARE PROG REPORT ---
General Date:: 04/11/20 ICU Day:: 12 Ventilator Day:: 12 Hospital Day:: 21 Resuscitation Status: Full Code Events in the past 12 to 24 Hours:: This 44-year-old -[place] female presented to [facility] emergency department on 03/21/2020 with complaints of possible presyncope versus syncope in addition to fever, chills, productive cough, dyspnea and exertional dyspnea. She has a history of psychiatric disorders and is known to be a difficult historian. Nonetheless, the patient also was known to have been diagnosed with COVID-19 pneumonia on 03/17/2020 and had subsequently been evaluated in the emergency department. She was apparently discharged home with prescriptions for azithromycin and other medications for symptomatic treatment. She returned with worsening shortness of breath and newly demonstrating supplemental oxygen requirement. 04/09: Remains intubated. Sedated with Precedex/Versed/fentanyl. On pressure control mode with peak and plateau pressures in the 40s. ABG this a.m.: 7.45/38/64. WBC 20.7>18.3. On Glucerna at 30 mL/h. Nurse reports she has had no bowel movement for several days. 04/10: No events reported overnight. Remains intubated. Still on Precedex/Cordelia sed/fentanyl for sedation. On pressure control ABG this a.m.: 7.38/57/80. WBC 18.317.3. On insulin infusion for glucose control. On Glucerna + Prosource. Creatinine 0.7. KUB obtained yesterday showed a gasless abdomen, incongruent with physical exam (possibly due to morbid obesity). Still no BM. 04/11: Had brisk diuresis with furosemide 40 mg IV single dose (2600 mL urine output), which resulted in a decrease in CVP. However, CVP is now back up to 910. On PRVC mode. ABG this a.m.: 7.46/46/53. Creatinine 0.6. WBC 17.3>11.4. Still no BM. On Versed/fentanyl/Precedex for sedation. Opens eyes to physical stimuli. Tube feeding currently on hold due to high residuals. Of note, even in the absence of tube feeding, the patient is having gastric residuals in the 200s. Review of systems relevant to events:: Pulmonary, psychiatric. Reason for ICU Addmission:: acute respiratory failure, covid -19 pneumonia, intubated. - Medications: Medications reviewed and adjusted accordingly: Yes Vasopressors:: None Sedation:: Precedex/fentanyl/Versed Physical Exam Vital Signs: Temp Pulse Resp BP Pulse Ox 99 F 65 24 H 144/97 H 89 L 04/11/20 08:00 04/11/20 10:00 04/11/20 11:01 04/11/20 11:01 04/11/20 11:01 Intake & Output 04/10/20 04/11/20 04/12/20 06:59 06:59 06:59 Intake Total 1742 1886 323 Output Total 4390 8352 1890 Balance -9367 -1902 -8422 Weight 154.1 kg 147.1 kg Weight/Height Weight 147.1 kg Height 1.6 m General appearance: PRESENT: no acute distress, morbidly obese, well-developed, well-nourished Head exam: PRESENT: atraumatic, normocephalic Eye exam: PRESENT: conjunctiva pink, EOMI, PERRLA. ABSENT: scleral icterus Mouth exam: PRESENT: moist, tongue midline Neck exam: ABSENT: carotid bruit, JVD, lymphadenopathy, thyromegaly Respiratory exam: PRESENT: decreased breath sounds. ABSENT: rales, rhonchi, wheezes Cardiovascular exam: PRESENT: RRR. ABSENT: diastolic murmur, rubs, systolic murmur Pulses: PRESENT: normal dorsalis pedis pul GI/Abdominal exam: PRESENT: normal bowel sounds, soft. ABSENT: distended, guarding, mass, organolmegaly, rebound, tenderness Gentrourinary exam: PRESENT: indwelling catheter Extremities exam: PRESENT: full ROM, pedal edema, +1 edema. ABSENT: calf tenderness, clubbing Musculoskeletal exam: PRESENT: normal inspection. ABSENT: deformity Neurological exam: PRESENT: altered Psychiatric exam: ABSENT: agitated, anxious Skin exam: PRESENT: dry, intact, warm. ABSENT: cyanosis, rash Tubes/Lines: PRESENT: Endotracheal Tube, Central Line, Nasogastic Tube Laboratory/Radiographs Laboratory Results: 04/11/20 03:05 04/11/20 03:05 04/10/20 04/11/20 04/11/20 19:53 03:05 03:05 WBC 11.4 H RBC 4.23 Hgb 9.5 L Hct 30.7 L MCV 73 L MCH 22.6 L MCHC 31.1 L RDW 27.6 H Plt Count 161 Seg Neutrophils % 86.9 H Carbonic Acid 1.24 HCO3/H2CO3 Ratio 25:1 ABG pH 7.50 H ABG pCO2 41.3 ABG pO2 50.5 L ABG HCO3 31.4 H ABG O2 Saturation 88.7 L ABG Base Excess 7.6 FiO2 100% Sodium 137.1 Potassium 4.6 Chloride 98 Carbon Dioxide 38 H Anion Gap 1 L BUN 36 H Creatinine 0.64 Est GFR ( Amer) > 60 Glucose 184 H Calcium 10.1 Phosphorus 5.5 H Magnesium 2.2 Prealbumin 19.6 04/11/20 03:05 WBC RBC Hgb Hct MCV MCH MCHC RDW Plt Count Seg Neutrophils % Carbonic Acid 1.37 H HCO3/H2CO3 Ratio 23:1 ABG pH 7.46 H ABG pCO2 45.6 H ABG pO2 53.2 L ABG HCO3 31.6 H ABG O2 Saturation 89.0 L ABG Base Excess 6.9 FiO2 100% Sodium Potassium Chloride Carbon Dioxide Anion Gap BUN Creatinine Est GFR ( Amer) Glucose Calcium Phosphorus Magnesium Prealbumin 03/21/20 04/11/20 21:58 03:05 Troponin I < 0.012 NT-Pro-B Natriuret Pep 192 H Impressions: KUB X-Ray 04/09/20 00:00 IMPRESSION: Essentially gasless abdomen. This may be secondary to large volume ascites. This can be secondary to fluid filled small bowel and small-bowel obstruction. Clinical correlation is needed. Gasless abdomen can also be seen with gastroenteritis Abdomen Ultrasound 04/10/20 00:00 IMPRESSION: NO EVIDENCE FOR ASCITES. Chest X-Ray 04/11/20 05:00 IMPRESSION: Tubes and lines as above. Otherwise unchanged radiographic appearance of the chest. All labs, radiographs, diagnostic studies and EKGs were personally reviewed: Yes In addition, reports of radiographic and diagnostic studies were read: Yes Assessment and Plan - Diagnosis (1) Acute respiratory failure with hypoxia and hypercapnia Is this a current diagnosis for this admission?: Yes Plan: * CVP 1012 this a.m. Furosemide 40 mg IV single dose. May need to repeat. * Titrate vent settings based on ABG results. * Overall, initial goals of ventilator management will need to be to decrease peak and plateau pressures. Currently, she has tidal volumes in excess of 550 mL. Based on her height of 160 cm, her 6 cc/kg IBW would only be 320 mL. Ba sed on her high minute ventilation, it may not be feasible to immediately decrease her tidal volume to 320 mL. Nonetheless, overall decrease in pressures and decrease in tidal volume should be a relatively protective intervention. * Hold neuromuscular blockade. (2) Pneumonia due to COVID-19 virus Is this a current diagnosis for this admission?: Yes Plan: * Continue Decadron 6 mg IV every 12 hours. (3) Constipation Qualifiers: Constipation type: slow transit constipation Qualified Code(s): K59.01 - Slow transit constipation Is this a current diagnosis for this admission?: Yes Plan: * Continue Colace. * Continue Reglan. * Repeat KUB. Consider GoLYTELY. (4) Leukocytosis Qualifiers: Leukocytosis type: unspecified Qualified Code(s): D72.829 - Elevated white blood cell count, unspecified Is this a current diagnosis for this admission?: Yes (5) Normocytic anemia Is this a current diagnosis for this admission?: Yes (6) Schizophrenia Qualifiers: Schizophrenia type: unspecified Qualified Code(s): F20.9 - Schizophrenia, unspecified Is this a current diagnosis for this admission?: Yes Critical Time Critical Time (minutes): 60 Level of Care: ICU -: 1. The care of a critical patient is a dynamic process. This note is a floor representative synopsis but static in nature. The timeframe for treatments given in order is not necessarily the actual time these treatments may have been done. 2. This patient requires critical care secondary to ongoing requirements for therapy not offered or safe outside the critical care environment. Transfer to a lower level of care will result in altered life or limb morbidity and mortality. 3. Multidisciplinary rounds completed. 4. ABCDE bundle addressed.
[2020-04-12] MEDS: DEXMEDETOMIDINE IN 0.9 % NACL 400 MCG/100 ML RTUPB IV PRN ×7 (00:50→22:00)
[2020-04-12] MEDS: ALBUTEROL SULFATE 0.083% NEB 2.5 MG/3 ML AMPUL NEB SCH ×4 (03:18→19:25)
[2020-04-12 04:26] LABS: ARTERIAL BLOOD BASE EXCESS 8.1 mmol/L; ARTERIAL BLOOD FIO2 100%; ARTERIAL BLOOD H2CO3 1.27 mmol/L (1.05-1.35); ARTERIAL BLOOD O2 SATURATION 92.6 % (94-98); ARTERIAL BLOOD PCO2 42.1 mmHg (35-45); ARTERIAL BLOOD PO2 59.1 mmHg (80-100); ARTERIAL BLOOD TOTAL CO2 33.3 mmol/L (21-25)
[2020-04-12 04:33] LABS: ABSOLUTE LYMPHOCYTES (AUTO) 0.8 10^3/uL (0.5-4.7); ABSOLUTE MONOCYTES (AUTO) 0.9 10^3/uL (0.1-1.4); ABSOLUTE NEUT (AUTO) 9.5 10^3/uL (1.7-8.2); BASOPHILS % (AUTO) 0.1 % (0-2); HEMATOCRIT 31.5 % (36.0-47.0); HEMOGLOBIN 9.9 g/dL (12.0-15.5); LYMPHOCYTES % (AUTO) 6.9 % (13-45); MEAN CORPUSCULAR HEMOGLOBIN 22.8 pg (27.0-33.4); MEAN CORPUSCULAR HGB CONC 31.5 g/dL (32.0-36.0); MEAN CORPUSCULAR VOLUME 72 fl (80-97); MONOCYTES % (AUTO) 8.3 % (3-13); PLATELET COUNT 148 10^3/uL (150-450); RED BLOOD COUNT 4.35 10^6/uL (3.72-5.28); RED CELL DISTRIBUTION WIDTH 27.8 % (11.5-14.0); SEGMENTED NEUTROPHILS % (AUTO) 84.7 % (42-78); TOTAL CELLS COUNTED % (AUTO) 100 %; WHITE BLOOD COUNT 11.2 10^3/uL (4.0-10.5)
[2020-04-12 04:47] LABS: ANION GAP 5 (5-19); BLOOD UREA NITROGEN 31 mg/dL (7-20); CALCIUM 9.9 mg/dL (8.4-10.2); CARBON DIOXIDE 36 mmol/L (22-30); CHLORIDE 99 mmol/L (98-107); GLUCOSE 94 mg/dL (75-110); PHOSPHORUS 4.2 mg/dL (2.5-4.5); POTASSIUM 3.7 mmol/L (3.6-5.0)
[2020-04-12] MEDS: MIDAZOLAM HCL 50 MG/100 ML RTUINJ IV PRN ×4 (04:58→20:43)
[2020-04-12] MEDS: FENTANYL CITRATE/PF 600 MCG/60 ML BAG IV PRN ×4 (04:59→22:39)
[2020-04-12] MEDS: INSULIN REG, HUMAN 100 UNIT/ML 3 ML VIAL (PYX) SUBCUT SCH ×3 (05:00→17:33)
[2020-04-12] MEDS: METOCLOPRAMIDE HCL INJ/PF 10 MG/2 ML SDV IV SCH ×3 (05:03→17:35)
[2020-04-12] MEDS: HEPARIN SOD (PORCINE) 5,000 UNIT/ML 1 ML VIAL SUBCUT SCH ×3 (05:03→22:36)
[2020-04-12] MEDS: METHYLPREDNISOLONE INJ 40 MG/1 ML SDV IV SCH ×3 (05:03→22:36)
[2020-04-12 05:38] LABS: ANISOCYTOSIS 4+; HYPOCHROMASIA 2+; PLATELET COMMENT DECREASED; POIKILOCYTOSIS SLIGHT; POLYCHROMASIA 1+; TARGET CELLS SLIGHT; TEAR DROP CELLS SLIGHT; TOXIC GRANULATION 1+
[2020-04-12] MEDS: BUDESONIDE NEB 0.25 MG/2 ML AMPUL NEB SCH ×2 (08:50→19:25)
[2020-04-12] MEDS: NORMAL SALINE 100 ML with INSULIN REGULAR, HUMAN 100 UNIT IV PRN ×2 (09:30)
--- NOTE | 2020-04-12 09:35 | RADIOLOGY REPORT (SQ) ---
EXAM DESCRIPTION: CHEST SINGLE VIEW IMAGES COMPLETED DATE/TIME: 04/12/2020 6:46 am REASON FOR STUDY: ETT tube COMPARISON: 04/11/2020 EXAM PARAMETERS: NUMBER OF VIEWS: One view. TECHNIQUE: Single frontal radiographic view of the chest acquired. RADIATION DOSE: NA LIMITATIONS: None. FINDINGS: LUNGS AND PLEURA: Stable pulmonary examination demonstrating multifocal airspace opacities . No pleural effusion or pneumothorax. MEDIASTINUM AND HILAR STRUCTURES: No masses. Contour normal. HEART AND VASCULAR STRUCTURES: Cardiomegaly without central vascular congestion. BONES: No acute findings. HARDWARE: Stable position and appearance of any left internal jugular vascular access catheter, endot win tube, and partially imaged enteric tube. OTHER: No other significant finding. IMPRESSION: 1. Stable pulmonary exam. 2. Stable lines and tubes. TECHNICAL DOCUMENTATION: JOB ID: [id number] 2010 [employer]- All Rights Reserved Reading location - IP/workstation name: [email or web address]
[2020-04-12] MEDS: ZINC SULFATE 220 MG CAPSULE NG SCH (12:41)
[2020-04-12] MEDS: INSULIN GLARGINE,HUM.REC.ANLOG 1,000 UNIT/10 ML VIAL SUBCUT SCH ×3 (12:41→22:36)
[2020-04-12] MEDS: ASCORBIC ACID 500 MG TABLET NG SCH ×2 (12:42→17:35)
[2020-04-12] MEDS: SENNOSIDES/DOCUSATE 8.6-50 MG 1 EACH TABLET NG SCH ×2 (12:42→17:34)
[2020-04-12] MEDS: FAMOTIDINE INJ/PF 20 MG/2 ML SDV IV SCH ×2 (12:42→22:36)
[2020-04-12] MEDS: CHOLECALCIFEROL (D3) 1,000 UNIT (25 MCG) TABLET NG SCH (12:42)
[2020-04-12] MEDS: AMINO AC/PROTEIN HYDR/WHEY PRO 11 GM/45 ML PKT NG SCH ×4 (12:43→22:38)
[2020-04-12 15:04] LABS: ARTERIAL BLOOD BASE EXCESS 8.3 mmol/L; ARTERIAL BLOOD FIO2 85%; ARTERIAL BLOOD H2CO3 1.39 mmol/L (1.05-1.35); ARTERIAL BLOOD HCO3 32.9 mmol/L (20-24); ARTERIAL BLOOD O2 SATURATION 89.4 % (94-98); ARTERIAL BLOOD PCO2 46.2 mmHg (35-45); ARTERIAL BLOOD PH 7.47 (7.35-7.45); ARTERIAL BLOOD PO2 53.4 mmHg (80-100); ARTERIAL BLOOD TOTAL CO2 34.4 mmol/L (21-25)
[2020-04-12 16:21] LABS: ARTERIAL BLOOD BASE EXCESS 8.7 mmol/L; ARTERIAL BLOOD H2CO3 1.48 mmol/L (1.05-1.35); ARTERIAL BLOOD HCO3 33.7 mmol/L (20-24); ARTERIAL BLOOD O2 SATURATION 94.4 % (94-98); ARTERIAL BLOOD PCO2 49.1 mmHg (35-45); ARTERIAL BLOOD PH 7.46 (7.35-7.45); ARTERIAL BLOOD PO2 69.2 mmHg (80-100); ARTERIAL BLOOD TOTAL CO2 35.3 mmol/L (21-25)
[2020-04-12 16:22] LABS: ARTERIAL BLOOD FIO2 80%
--- NOTE | 2020-04-12 20:23 | PDOC CRITICAL CARE PROG REPORT ---
General Date:: 04/12/20 ICU Day:: 13 Ventilator Day:: 13 Hospital Day:: 22 Resuscitation Status: Full Code Events in the past 12 to 24 Hours:: This 44-year-old -[place] female presented to [facility] emergency department on 03/21/2020 with complaints of possible presyncope versus syncope in addition to fever, chills, productive cough, dyspnea and exertional dyspnea. She has a history of psychiatric disorders and is known to be a difficult historian. Nonetheless, the patient also was known to have been diagnosed with COVID-19 pneumonia on 03/17/2020 and had subsequently been evaluated in the emergency department. She was apparently discharged home with prescriptions for azithromycin and other medications for symptomatic treatment. She returned with worsening shortness of breath and newly demonstrating supplemental oxygen requirement. 04/09: Remains intubated. Sedated with Precedex/Versed/fentanyl. On pressure control mode with peak and plateau pressures in the 40s. ABG this a.m.: 7.45/38/64. WBC 20.7>18.3. On Glucerna at 30 mL/h. Nurse reports she has had no bowel movement for several days. 04/10: No events reported overnight. Remains intubated. Still on Precedex/Cordelia sed/fentanyl for sedation. On pressure control ABG this a.m.: 7.38/57/80. WBC 18.317.3. On insulin infusion for glucose control. On Glucerna + Prosource. Creatinine 0.7. KUB obtained yesterday showed a gasless abdomen, incongruent with physical exam (possibly due to morbid obesity). Still no BM. 04/11: Had brisk diuresis with furosemide 40 mg IV single dose (2600 mL urine output), which resulted in a decrease in CVP. However, CVP is now back up to 910. On PRVC mode. ABG this a.m.: 7.46/46/53. Creatinine 0.6. WBC 17.3>11.4. Still no BM. On Versed/fentanyl/Precedex for sedation. Opens eyes to physical stimuli. Tube feeding currently on hold due to high residuals. Of note, even in the absence of tube feeding, the patient is having gastric residuals in the 200s. 04/12: No events reported overnight. Remains intubated. I/O- 6159 mL over the past 24 hours. DVT. On PRVC 22/450/100/12. ABG this a.m.: 7.50/42/59. On Versed/fentanyl/Precedex for sedation. She does demonstrate spontaneous eye opening. She does not follow commands. KUB yesterday demonstrates a paucity of bowel gas (but, no longer gasless). Creatinine 0.7. WBC 11.2. Review of systems relevant to events:: Pulmonary, psychiatric. Reason for ICU Addmission:: acute respiratory failure, covid -19 pneumonia, intubated. - Medications: Medications reviewed and adjusted accordingly: Yes Vasopressors:: None Sedation:: Precedex/fentanyl/Versed Physical Exam Vital Signs: Temp Pulse Resp BP Pulse Ox 97.7 F 63 22 H 134/99 H 89 L 04/12/20 08:00 04/12/20 07:00 04/12/20 08:01 04/12/20 08:01 04/12/20 08:01 Intake & Output 04/11/20 04/12/20 04/13/20 06:59 06:59 06:59 Intake Total 1886 1681 Output Total 8335 7840 400 Balance -6449 -6159 -400 Weight 147.1 kg 143.6 kg Weight/Height Weight 143.6 kg Height 1.6 m General appearance: PRESENT: no acute distress, morbidly obese, well-developed, well-nourished Head exam: PRESENT: atraumatic, normocephalic Eye exam: PRESENT: conjunctiva pink, EOMI, PERRLA. ABSENT: scleral icterus Neck exam: ABSENT: carotid bruit, JVD, lymphadenopathy, thyromegaly Respiratory exam: PRESENT: clear to auscultation reji, symmetrical, tachypnea. ABSENT: rales, rhonchi, wheezes Cardiovascular exam: PRESENT: RRR. ABSENT: diastolic murmur, rubs, systolic murmur Pulses: PRESENT: normal dorsalis pedis pul GI/Abdominal exam: PRESENT: normal bowel sounds, soft. ABSENT: distended, guarding, mass, organolmegaly, rebound, tenderness Gentrourinary exam: PRESENT: indwelling catheter Extremities exam: PRESENT: full ROM, pedal edema, +1 edema. ABSENT: calf tenderness, clubbing Neurological exam: PRESENT: altered. ABSENT: reflexes normal Psychiatric exam: ABSENT: agitated, anxious Skin exam: PRESENT: dry, intact, warm. ABSENT: cyanosis, rash Tubes/Lines: PRESENT: Endotracheal Tube, Central Line, Other - Orogastric Laboratory/Radiographs Laboratory Results: 04/12/20 03:43 04/12/20 03:43 04/11/20 04/11/20 04/12/20 16:38 18:29 03:43 WBC 11.2 H RBC 4.35 Hgb 9.9 L Hct 31.5 L MCV 72 L MCH 22.8 L MCHC 31.5 L RDW 27.8 H Plt Count 148 L Seg Neutrophils % 84.7 H Carbonic Acid HCO3/H2CO3 Ratio ABG pH ABG pCO2 ABG pO2 ABG HCO3 ABG O2 Saturation ABG Base Excess FiO2 Sodium Potassium Chloride Carbon Dioxide Anion Gap BUN Creatinine Est GFR ( Amer) Glucose Calcium Phosphorus Magnesium C-Reactive Protein Cancelled 26.3 H 04/12/20 04/12/20 03:43 03:43 WBC RBC Hgb Hct MCV MCH MCHC RDW Plt Count Seg Neutrophils % Carbonic Acid 1.27 HCO3/H2CO3 Ratio 25:1 ABG pH 7.50 H ABG pCO2 42.1 ABG pO2 59.1 L ABG HCO3 32.0 H ABG O2 Saturation 92.6 L ABG Base Excess 8.1 FiO2 100% Sodium 139.7 Potassium 3.7 Chloride 99 Carbon Dioxide 36 H Anion Gap 5 BUN 31 H Creatinine 0.65 Est GFR ( Amer) > 60 Glucose 94 Calcium 9.9 Phosphorus 4.2 Magnesium 2.1 C-Reactive Protein 03/21/20 04/11/20 21:58 03:05 Troponin I < 0.012 NT-Pro-B Natriuret Pep 192 H Impressions: Abdomen Ultrasound 04/10/20 00:00 IMPRESSION: NO EVIDENCE FOR ASCITES. KUB X-Ray 04/11/20 00:00 IMPRESSION: 1. Similar appearance of the abdomen with a relative paucity of bowel gas. 2. The tip of the enteric tube projects within the gastric lumen. All labs, radiographs, diagnostic studies and EKGs were personally reviewed: Yes In addition, reports of radiographic and diagnostic studies were read: Yes Assessment and Plan - Diagnosis (1) Acute respiratory failure with hypoxia and hypercapnia Is this a current diagnosis for this admission?: Yes Plan: * CVP 4-5 * Titrate vent settings based on ABG results. * Overall, initial goals of ventilator management will need to be to decrease peak and plateau pressures. Currently, she has tidal volumes in excess of 550 mL. Based on her height of 160 cm, her 6 cc/kg IBW would only be 320 mL. Based on her high minute ventilation, it may not be feasible to immediately decrease her tidal volume to 320 mL. Nonetheless, overall decrease in pressures and decrease in tidal volume should be a relatively protective intervention. * Hold neuromuscular blockade. * Trial on by vent/APRV. (2) Pneumonia due to COVID-19 virus Is this a current diagnosis for this admission?: Yes (3) Constipation Qualifiers: Constipation type: slow transit constipation Qualified Code(s): K59.01 - Slow transit constipation Is this a current diagnosis for this admission?: Yes Plan: * Continue Colace. * Continue Reglan. * Add Senna. (4) Leukocytosis Qualifiers: Leukocytosis type: unspecified Qualified Code(s): D72.829 - Elevated white blood cell count, unspecified Is this a current diagnosis for this admission?: Yes (5) Normocytic anemia Is this a current diagnosis for this admission?: Yes (6) Schizophrenia Qualifiers: Schizophrenia type: unspecified Qualified Code(s): F20.9 - Schizophrenia, unspecified Is this a current diagnosis for this admission?: Yes Critical Time Critical Time (minutes): 90 Level of Care: ICU -: 1. The care of a critical patient is a dynamic process. This note is a cash applications representative synopsis but static in nature. The timeframe for treatments given in order is not necessarily the actual time these treatments may have been done. 2. This patient requires critical care secondary to ongoing requirements for therapy not offered or safe outside the critical care environment. Transfer to a lower level of care will result in altered life or limb morbidity and mortality. 3. Multidisciplinary rounds completed. 4. ABCDE bundle addressed.
[2020-04-12 23:11] LABS: ARTERIAL BLOOD BASE EXCESS 6.4 mmol/L; ARTERIAL BLOOD FIO2 80%; ARTERIAL BLOOD H2CO3 1.54 mmol/L (1.05-1.35); ARTERIAL BLOOD O2 SATURATION 90.4 % (94-98); ARTERIAL BLOOD PCO2 51.3 mmHg (35-45); ARTERIAL BLOOD PH 7.41 (7.35-7.45); ARTERIAL BLOOD PO2 58.8 mmHg (80-100); ARTERIAL BLOOD TOTAL CO2 33.6 mmol/L (21-25)
[2020-04-13] MEDS: METOCLOPRAMIDE HCL INJ/PF 10 MG/2 ML SDV IV SCH ×4 (00:30→17:32)
[2020-04-13] MEDS: DEXMEDETOMIDINE IN 0.9 % NACL 400 MCG/100 ML RTUPB IV PRN ×4 (00:52→12:00)
[2020-04-13] MEDS: INSULIN REG, HUMAN 100 UNIT/ML 3 ML VIAL (PYX) SUBCUT SCH ×4 (01:02→17:12)
[2020-04-13] MEDS: NORMAL SALINE 100 ML with INSULIN REGULAR, HUMAN 100 UNIT IV PRN ×2 (02:06)
[2020-04-13] MEDS: FENTANYL CITRATE/PF 600 MCG/60 ML BAG IV PRN ×3 (02:07→22:31)
[2020-04-13] MEDS: ALBUTEROL SULFATE 0.083% NEB 2.5 MG/3 ML AMPUL NEB SCH ×4 (02:29→20:47)
[2020-04-13] MEDS: MIDAZOLAM HCL 50 MG/100 ML RTUINJ IV PRN ×3 (02:36→12:30)
[2020-04-13 03:17] LABS: ARTERIAL BLOOD BASE EXCESS 6.2 mmol/L; ARTERIAL BLOOD H2CO3 1.51 mmol/L (1.05-1.35); ARTERIAL BLOOD HCO3 31.7 mmol/L (20-24); ARTERIAL BLOOD O2 SATURATION 94.7 % (94-98); ARTERIAL BLOOD PCO2 50.3 mmHg (35-45); ARTERIAL BLOOD PH 7.42 (7.35-7.45); ARTERIAL BLOOD PO2 72.7 mmHg (80-100); ARTERIAL BLOOD TOTAL CO2 33.3 mmol/L (21-25)
[2020-04-13 03:18] LABS: ARTERIAL BLOOD FIO2 90%
[2020-04-13 03:21] LABS: HEMATOCRIT 30.8 % (36.0-47.0); HEMOGLOBIN 9.7 g/dL (12.0-15.5); MEAN CORPUSCULAR HGB CONC 31.5 g/dL (32.0-36.0); MEAN CORPUSCULAR VOLUME 73 fl (80-97); PLATELET COUNT 132 10^3/uL (150-450); RED BLOOD COUNT 4.21 10^6/uL (3.72-5.28); WHITE BLOOD COUNT 21.2 10^3/uL (4.0-10.5)
[2020-04-13 03:37] LABS: BLOOD UREA NITROGEN 31 mg/dL (7-20); C-REACTIVE PROTEIN 19.2 mg/L (<10.0); CALCIUM 9.8 mg/dL (8.4-10.2); GLUCOSE 119 mg/dL (75-110)
[2020-04-13 03:38] LABS: ABSOLUTE LYMPHOCYTES# (MANUAL) 0.4 10^3/uL (0.5-4.7); ABSOLUTE MONOCYTES # (MANUAL) 1.1 10^3/uL (0.1-1.4); BASOPHILS % (MANUAL) 0 % (0-2); EOSINOPHILS % (MANUAL) 0 % (0-6); LYMPHOCYTES % (MANUAL) 2 % (13-45); MONOCYTES % (MANUAL) 5 % (3-13); SEGMENTED NEUTROPHILS % (MAN) 93 % (42-78); TOTAL CELLS COUNTED 100
[2020-04-13 03:39] LABS: ANISOCYTOSIS 3+; PLATELET COMMENT DECREASED; POIKILOCYTOSIS SLIGHT; POLYCHROMASIA SLIGHT; TARGET CELLS SLIGHT
[2020-04-13 03:40] LABS: ANION GAP 6 (5-19); CARBON DIOXIDE 32 mmol/L (22-30); CHLORIDE 102 mmol/L (98-107)
[2020-04-13] MEDS: METHYLPREDNISOLONE INJ 40 MG/1 ML SDV IV SCH ×3 (06:43→21:45)
[2020-04-13] MEDS: HEPARIN SOD (PORCINE) 5,000 UNIT/ML 1 ML VIAL SUBCUT SCH ×3 (06:43→21:44)
[2020-04-13] MEDS: BUDESONIDE NEB 0.25 MG/2 ML AMPUL NEB SCH ×2 (08:55→20:47)
[2020-04-13] MEDS ORDERED: DEXMEDETOMIDINE IN 0.9 % NACL 400 MCG/100 ML RTUPB IV ONE (09:18)
[2020-04-13] MEDS: SENNOSIDES/DOCUSATE 8.6-50 MG 1 EACH TABLET NG SCH ×2 (09:35→17:32)
[2020-04-13] MEDS: CHOLECALCIFEROL (D3) 1,000 UNIT (25 MCG) TABLET NG SCH (09:36)
[2020-04-13] MEDS: ASCORBIC ACID 500 MG TABLET NG SCH ×2 (09:36→17:32)
[2020-04-13] MEDS: ZINC SULFATE 220 MG CAPSULE NG SCH (09:36)
[2020-04-13] MEDS: FAMOTIDINE INJ/PF 20 MG/2 ML SDV IV SCH ×2 (09:37→21:45)
[2020-04-13] MEDS: INSULIN GLARGINE,HUM.REC.ANLOG 1,000 UNIT/10 ML VIAL SUBCUT SCH ×2 (10:05→21:43)
[2020-04-13] MEDS: AMINO AC/PROTEIN HYDR/WHEY PRO 11 GM/45 ML PKT NG SCH ×4 (11:38→21:45)
[2020-04-13 14:17] LABS: ARTERIAL BLOOD BASE EXCESS 1.7 mmol/L; ARTERIAL BLOOD H2CO3 1.12 mmol/L (1.05-1.35); ARTERIAL BLOOD HCO3 25.6 mmol/L (20-24); ARTERIAL BLOOD O2 SATURATION 94.1 % (94-98); ARTERIAL BLOOD PCO2 37.2 mmHg (35-45); ARTERIAL BLOOD PH 7.46 (7.35-7.45); ARTERIAL BLOOD PO2 66.2 mmHg (80-100); ARTERIAL BLOOD TOTAL CO2 26.7 mmol/L (21-25)
[2020-04-13 14:18] LABS: ARTERIAL BLOOD FIO2 90%
[2020-04-13] MEDS: PROPOFOL 1,000 MG/100 ML INFUS..BTL IV PRN ×5 (14:55→22:06)
--- NOTE | 2020-04-13 18:53 | PDOC CRITICAL CARE PROG REPORT ---
General Date:: 04/13/20 ICU Day:: 14 Ventilator Day:: 14 Hospital Day:: 23 Resuscitation Status: Full Code Events in the past 12 to 24 Hours:: This 44-year-old -Turkish female presented to [facility] emergency department on 03/21/2020 with complaints of possible presyncope versus syncope in addition to fever, chills, productive cough, dyspnea and exertional dyspnea. She has a history of psychiatric disorders and is known to be a difficult historian. Nonetheless, the patient also was known to have been diagnosed with COVID-19 pneumonia on 03/17/2020 and had subsequently been evaluated in the emergency department. She was apparently discharged home with prescriptions for azithromycin and other medications for symptomatic treatment. She returned with worsening shortness of breath and newly demonstrating supplemental oxygen requirement. 04/09: Remains intubated. Sedated with Precedex/Versed/fentanyl. On pressure control mode with peak and plateau pressures in the 40s. ABG this a.m.: 7.45/38/64. WBC 20.7>18.3. On Glucerna at 30 mL/h. Nurse reports she has had no bowel movement for several days. 04/10: No events reported overnight. Remains intubated. Still on Precedex/Cordelia sed/fentanyl for sedation. On pressure control ABG this a.m.: 7.38/57/80. WBC 18.317.3. On insulin infusion for glucose control. On Glucerna + Prosource. Creatinine 0.7. KUB obtained yesterday showed a gasless abdomen, incongruent with physical exam (possibly due to morbid obesity). Still no BM. 04/11: Had brisk diuresis with furosemide 40 mg IV single dose (2600 mL urine output), which resulted in a decrease in CVP. However, CVP is now back up to 910. On PRVC mode. ABG this a.m.: 7.46/46/53. Creatinine 0.6. WBC 17.3>11.4. Still no BM. On Versed/fentanyl/Precedex for sedation. Opens eyes to physical stimuli. Tube feeding currently on hold due to high residuals. Of note, even in the absence of tube feeding, the patient is having gastric residuals in the 200s. 04/12: No events reported overnight. Remains intubated. I/O- 6159 mL over the past 24 hours. DVT. On PRVC 22/450/100/12. ABG this a.m.: 7.50/42/59. On Versed/fentanyl/Precedex for sedation. She does demonstrate spontaneous eye opening. She does not follow commands. KUB yesterday demonstrates a paucity of bowel gas (but, no longer gasless). Creatinine 0.7. WBC 11.2. 04/13: No events reported overnight. Was switched to BiVENT/APRV yesterday (FiO2 80%, P high 17, T high 9.5 seconds, P low 3, T low 0.5 seconds). ABG this a.m.: 7.42/50/72. Off insulin infusion. Overnight, the patient had an episode of hypoglycemia (40) despite being on trickle tube feeds. WBC this morning 21.2. No fever. Today, the patient is much more awake. She bites down on the tube. Eyes remain open. Does not follow commands. Creatinine 0.7. Review of systems relevant to events:: Pulmonary, psychiatric. Reason for ICU Addmission:: acute respiratory failure, covid -19 pneumonia, intubated. - Medications: Medications reviewed and adjusted accordingly: Yes Vasopressors:: None Sedation:: Precedex/fentanyl/Versed Physical Exam Vital Signs: Temp Pulse Resp BP Pulse Ox 97.7 F 74 38 H 114/82 99 04/13/20 08:00 04/13/20 08:00 04/13/20 08:02 04/13/20 08:02 04/13/20 08:02 Intake & Output 04/12/20 04/13/20 04/14/20 06:59 06:59 06:59 Intake Total 1681 1180 100 Output Total 7840 1987 160 Balance -6159 -807 -60 Weight 143.6 kg 143.6 kg Weight/Height Weight 143.6 kg Height 1.6 m General appearance: PRESENT: no acute distress, morbidly obese, well-developed, well-nourished Head exam: PRESENT: atraumatic, normocephalic Eye exam: PRESENT: conjunctiva pink, EOMI, PERRLA. ABSENT: scleral icterus Mouth exam: PRESENT: moist, tongue midline Neck exam: ABSENT: carotid bruit, JVD, lymphadenopathy, thyromegaly Respiratory exam: PRESENT: clear to auscultation reji, symmetrical, tachypnea. ABSENT: rales, rhonchi, wheezes Cardiovascular exam: PRESENT: RRR, tachycardia. ABSENT: diastolic murmur, rubs, systolic murmur Pulses: PRESENT: normal dorsalis pedis pul GI/Abdominal exam: PRESENT: hypoactive bowel sounds, soft. ABSENT: distended, guarding, mass, organolmegaly, rebound, tenderness Extremities exam: PRESENT: full ROM. ABSENT: calf tenderness, clubbing, pedal edema Musculoskeletal exam: PRESENT: normal inspection. ABSENT: deformity Neurological exam: PRESENT: awake, CN II-XII grossly intact. ABSENT: reflexes normal Psychiatric exam: PRESENT: agitated, anxious Skin exam: PRESENT: dry, intact, warm. ABSENT: cyanosis, rash Tubes/Lines: PRESENT: Endotracheal Tube, Central Line, Other - Orogastric tube Laboratory/Radiographs Laboratory Results: 04/13/20 03:00 04/13/20 03:00 04/12/20 04/12/20 04/12/20 11:30 14:25 16:05 WBC RBC Hgb Hct MCV MCH MCHC RDW Plt Count Seg Neutrophils % Carbonic Acid Cancelled 1.39 H 1.48 H HCO3/H2CO3 Ratio Cancelled 23:1 22:1 ABG pH Cancelled 7.47 H 7.46 H ABG pCO2 Cancelled 46.2 H 49.1 H ABG pO2 Cancelled 53.4 L 69.2 L ABG HCO3 Cancelled 32.9 H 33.7 H ABG O2 Saturation Cancelled 89.4 L 94.4 ABG Base Excess Cancelled 8.3 8.7 FiO2 Cancelled 85% 80% Sodium Potassium Chloride Carbon Dioxide Anion Gap BUN Creatinine Est GFR ( Amer) Glucose Calcium Phosphorus Magnesium Ferritin C-Reactive Protein 04/12/20 04/13/20 04/13/20 22:20 03:00 03:00 WBC 21.2 H RBC 4.21 Hgb 9.7 L Hct 30.8 L MCV 73 L MCH 23.0 L MCHC 31.5 L RDW 27.0 H Plt Count 132 L Seg Neutrophils % Not Reportable Carbonic Acid 1.54 H HCO3/H2CO3 Ratio 20:1 ABG pH 7.41 ABG pCO2 51.3 H ABG pO2 58.8 L ABG HCO3 32.0 H ABG O2 Saturation 90.4 L ABG Base Excess 6.4 FiO2 80% Sodium 139.9 Potassium 4.0 Chloride 102 Carbon Dioxide 32 H Anion Gap 6 BUN 31 H Creatinine 0.58 Est GFR ( Amer) > 60 Glucose 119 H Calcium 9.8 Phosphorus 4.0 Magnesium 2.1 Ferritin 52.10 C-Reactive Protein 19.2 H 04/13/20 03:00 WBC RBC Hgb Hct MCV MCH MCHC RDW Plt Count Seg Neutrophils % Carbonic Acid 1.51 H HCO3/H2CO3 Ratio 20:1 ABG pH 7.42 ABG pCO2 50.3 H ABG pO2 72.7 L ABG HCO3 31.7 H ABG O2 Saturation 94.7 ABG Base Excess 6.2 FiO2 90% Sodium Potassium Chloride Carbon Dioxide Anion Gap BUN Creatinine Est GFR ( Amer) Glucose Calcium Phosphorus Magnesium Ferritin C-Reactive Protein 03/21/20 04/11/20 21:58 03:05 Troponin I < 0.012 NT-Pro-B Natriuret Pep 192 H Impressions: Abdomen Ultrasound 04/10/20 00:00 IMPRESSION: NO EVIDENCE FOR ASCITES. KUB X-Ray 04/11/20 00:00 IMPRESSION: 1. Similar appearance of the abdomen with a relative paucity of bowel gas. 2. The tip of the enteric tube projects within the gastric lumen. Chest X-Ray 04/12/20 05:00 IMPRESSION: 1. Stable pulmonary exam. 2. Stable lines and tubes. All labs, radiographs, diagnostic studies and EKGs were personally reviewed: Yes In addition, reports of radiographic and diagnostic studies were read: Yes Assessment and Plan - Diagnosis (1) Acute respiratory failure with hypoxia and hypercapnia Is this a current diagnosis for this admission?: Yes Plan: * CVP 4-5 * Titrate vent settings based on ABG results. * Continue BiVENT. * Titrate sedation for RASS -2. At this time, the patient is under sedated (needs more for sedation). * Change Versed/Precedex infusion to propofol. (2) Pneumonia due to COVID-19 virus Is this a current diagnosis for this admission?: Yes (3) Constipation Qualifiers: Constipation type: slow transit constipation Qualified Code(s): K59.01 - Slow transit constipation Is this a current diagnosis for this admission?: Yes (4) Leukocytosis Qualifiers: Leukocytosis type: unspecified Qualified Code(s): D72.829 - Elevated white blood cell count, unspecified Is this a current diagnosis for this admission?: Yes (5) Normocytic anemia Is this a current diagnosis for this admission?: Yes (6) Schizophrenia Qualifiers: Schizophrenia type: unspecified Qualified Code(s): F20.9 - Schizophrenia, unspecified Is this a current diagnosis for this admission?: Yes (7) Hypoglycemia Is this a current diagnosis for this admission?: Yes Plan: * Although this patient has been requiring treatment with insulin for glucose control (albeit, with ongoing high-dose steroid therapy), it is noted that this patient has no history of diabetes. * Check hemoglobin A1c. * Continue to monitor fingerstick glucose values every hour. Critical Time Critical Time (minutes): 60 Level of Care: ICU -: 1. The care of a critical patient is a dynamic process. This note is a telesales representative synopsis but static in nature. The timeframe for treatments given in order is not necessarily the actual time these treatments may have been done. 2. This patient requires critical care secondary to ongoing requirements for therapy not offered or safe outside the critical care environment. Transfer to a lower level of care will result in altered life or limb morbidity and mortality. 3. Multidisciplinary rounds completed. 4. ABCDE bundle addressed.
[2020-04-14] MEDS: METOCLOPRAMIDE HCL INJ/PF 10 MG/2 ML SDV IV SCH ×4 (00:05→17:55)
[2020-04-14] MEDS: PROPOFOL 1,000 MG/100 ML INFUS..BTL IV PRN ×11 (00:45→23:35)
[2020-04-14] MEDS: INSULIN REG, HUMAN 100 UNIT/ML 3 ML VIAL (PYX) SUBCUT SCH (00:59)
[2020-04-14] MEDS: ONDANSETRON HCL INJ/PF 4 MG/2 ML SDV IV PRN (01:05)
[2020-04-14] MEDS: FENTANYL CITRATE/PF 600 MCG/60 ML BAG IV PRN ×9 (01:20→23:50)
[2020-04-14 03:03] LABS: ARTERIAL BLOOD BASE EXCESS 3.2 mmol/L; ARTERIAL BLOOD H2CO3 1.29 mmol/L (1.05-1.35); ARTERIAL BLOOD HCO3 27.9 mmol/L (20-24); ARTERIAL BLOOD O2 SATURATION 93.1 % (94-98); ARTERIAL BLOOD PH 7.43 (7.35-7.45); ARTERIAL BLOOD PO2 64.7 mmHg (80-100); ARTERIAL BLOOD TOTAL CO2 29.2 mmol/L (21-25)
[2020-04-14 03:04] LABS: ARTERIAL BLOOD FIO2 90%
[2020-04-14 03:17] LABS: ANION GAP 8 (5-19); BLOOD UREA NITROGEN 30 mg/dL (7-20); CALCIUM 9.6 mg/dL (8.4-10.2); CARBON DIOXIDE 28 mmol/L (22-30); CHLORIDE 102 mmol/L (98-107); GLUCOSE 175 mg/dL (75-110); PHOSPHORUS 3.4 mg/dL (2.5-4.5)
[2020-04-14 03:36] LABS: HEMATOCRIT 31.2 % (36.0-47.0); HEMOGLOBIN 9.9 g/dL (12.0-15.5); MEAN CORPUSCULAR HEMOGLOBIN 23.1 pg (27.0-33.4); MEAN CORPUSCULAR HGB CONC 31.6 g/dL (32.0-36.0); MEAN CORPUSCULAR VOLUME 73 fl (80-97); PLATELET COUNT 147 10^3/uL (150-450); RED BLOOD COUNT 4.27 10^6/uL (3.72-5.28); RED CELL DISTRIBUTION WIDTH 27.5 % (11.5-14.0)
[2020-04-14 03:51] LABS: ABSOLUTE LYMPHOCYTES# (MANUAL) 0.7 10^3/uL (0.5-4.7); BASOPHILS % (MANUAL) 0 % (0-2); EOSINOPHILS % (MANUAL) 0 % (0-6); LYMPHOCYTES % (MANUAL) 3 % (13-45); MONOCYTES % (MANUAL) 0 % (3-13); SEGMENTED NEUTROPHILS % (MAN) 97 % (42-78); TOTAL CELLS COUNTED 100
[2020-04-14 03:53] LABS: ANISOCYTOSIS 4+; BURR CELLS 1+; OVALOCYTES 2+; PLATELET COMMENT ADEQUATE; POIKILOCYTOSIS 3+; SCHISTOCYTES 1+; TEAR DROP CELLS 1+
[2020-04-14] MEDS: ALBUTEROL SULFATE 0.083% NEB 2.5 MG/3 ML AMPUL NEB SCH ×4 (04:04→20:54)
[2020-04-14] MEDS ORDERED: MIDAZOLAM 2 MG/2 ML INJ ONE (04:29)
[2020-04-14] MEDS ORDERED: MIDAZOLAM 2 MG/2 ML INJ IV ONE ×2 (04:30→21:08)
[2020-04-14] MEDS ORDERED: DEXTROSE 5%-WATER 1000 ML 1,000 ML with SODIUM BICARBONATE 150 MEQ IV PRN ×2 (05:37)
[2020-04-14] MEDS: HEPARIN SOD (PORCINE) 5,000 UNIT/ML 1 ML VIAL SUBCUT SCH ×2 (08:01→13:05)
[2020-04-14] MEDS: METHYLPREDNISOLONE INJ 40 MG/1 ML SDV IV SCH ×2 (08:02→13:01)
[2020-04-14] MEDS: BUDESONIDE NEB 0.25 MG/2 ML AMPUL NEB SCH ×2 (08:23→20:54)
[2020-04-14] MEDS ORDERED: DEXMEDETOMIDINE IN 0.9 % NACL 400 MCG/100 ML RTUPB IV ONE (08:53)
[2020-04-14] MEDS: DEXMEDETOMIDINE IN NS 400 MCG/100 ML RTUPB IV PRN ×3 (08:55→18:47)
--- NOTE | 2020-04-14 09:59 | RADIOLOGY REPORT (SQ) ---
EXAM DESCRIPTION: CHEST SINGLE VIEW IMAGES COMPLETED DATE/TIME: 04/14/2020 6:28 am REASON FOR STUDY: ETT tube COMPARISON: 04/12/2020 NUMBER OF VIEWS: One view. TECHNIQUE: Single frontal radiographic image of the chest acquired. LIMITATIONS: None. FINDINGS: LUNGS AND PLEURA: Diffuse ground-glass attenuation with slight improved aeration in the ri ght lung compared to prior. No pneumothorax. MEDIASTINUM AND HEART: Stable heart size and mediastinal structures. SUPPORT DEVICES: Appropriate location without change. BONY STRUCTURES: No acute findings. HARDWARE: None. OTHER: No other significant finding. IMPRESSION: Slight improvement. No pneumothorax. Reading location - IP/workstation name: [email or web address]
[2020-04-14] MEDS ORDERED: NORMAL SALINE 1000 ML 1,000 ML IV PRN (10:21)
[2020-04-14] MEDS: SENNOSIDES/DOCUSATE 8.6-50 MG 1 EACH TABLET NG SCH ×2 (10:22→17:55)
[2020-04-14] MEDS: CHOLECALCIFEROL (D3) 1,000 UNIT (25 MCG) TABLET NG SCH (10:32)
[2020-04-14] MEDS: ASCORBIC ACID 500 MG TABLET NG SCH ×2 (10:32→17:55)
[2020-04-14] MEDS: ZINC SULFATE 220 MG CAPSULE NG SCH (10:32)
[2020-04-14] MEDS: AMINO AC/PROTEIN HYDR/WHEY PRO 11 GM/45 ML PKT NG SCH ×3 (10:33→17:55)
[2020-04-14] MEDS: FAMOTIDINE INJ/PF 20 MG/2 ML SDV IV SCH (10:35)
[2020-04-14] MEDS: POLYETHYLENE GLYCOL 3350 POWDER 17 GM/1 PACKET NG PRN (10:44)
[2020-04-15] MEDS: HEPARIN SOD (PORCINE) 5,000 UNIT/ML 1 ML VIAL SUBCUT SCH ×4 (00:09→23:16)
[2020-04-15] MEDS: FAMOTIDINE INJ/PF 20 MG/2 ML SDV IV SCH ×3 (00:09→23:16)
[2020-04-15] MEDS: METHYLPREDNISOLONE INJ 40 MG/1 ML SDV IV SCH ×4 (00:09→23:17)
[2020-04-15] MEDS: AMINO AC/PROTEIN HYDR/WHEY PRO 11 GM/45 ML PKT NG SCH ×5 (00:10→23:17)
[2020-04-15] MEDS: METOCLOPRAMIDE HCL INJ/PF 10 MG/2 ML SDV IV SCH ×5 (00:10→23:16)
[2020-04-15] MEDS: PROPOFOL 1,000 MG/100 ML INFUS..BTL IV PRN ×6 (02:00→21:30)
[2020-04-15] MEDS: FENTANYL CITRATE/PF 600 MCG/60 ML BAG IV PRN ×9 (02:15→23:50)
[2020-04-15] MEDS: ALBUTEROL SULFATE 0.083% NEB 2.5 MG/3 ML AMPUL NEB SCH ×4 (02:39→20:29)
[2020-04-15] MEDS: DEXMEDETOMIDINE IN NS 400 MCG/100 ML RTUPB IV PRN ×3 (05:00→19:03)
[2020-04-15 08:06] LABS: HEMATOCRIT 25.9 % (36.0-47.0); MEAN CORPUSCULAR HEMOGLOBIN 22.8 pg (27.0-33.4); MEAN CORPUSCULAR VOLUME 74 fl (80-97); PLATELET COUNT 121 10^3/uL (150-450); RED BLOOD COUNT 3.51 10^6/uL (3.72-5.28); RED CELL DISTRIBUTION WIDTH 26.9 % (11.5-14.0); WHITE BLOOD COUNT 18.2 10^3/uL (4.0-10.5)
[2020-04-15 08:12] LABS: ARTERIAL BLOOD BASE EXCESS 0.2 mmol/L; ARTERIAL BLOOD FIO2 95%; ARTERIAL BLOOD H2CO3 1.83 mmol/L (1.05-1.35); ARTERIAL BLOOD HCO3 27.6 mmol/L (20-24); ARTERIAL BLOOD O2 SATURATION 92.2 % (94-98); ARTERIAL BLOOD PCO2 60.7 mmHg (35-45); ARTERIAL BLOOD PH 7.28 (7.35-7.45); ARTERIAL BLOOD PO2 72.4 mmHg (80-100); ARTERIAL BLOOD TOTAL CO2 29.4 mmol/L (21-25)
[2020-04-15 08:32] LABS: ABSOLUTE LYMPHOCYTES# (MANUAL) 0.5 10^3/uL (0.5-4.7); ABSOLUTE MONOCYTES # (MANUAL) 0.2 10^3/uL (0.1-1.4); BASOPHILS % (MANUAL) 0 % (0-2); EOSINOPHILS % (MANUAL) 0 % (0-6); LYMPHOCYTES % (MANUAL) 3 % (13-45); MONOCYTES % (MANUAL) 1 % (3-13); SEGMENTED NEUTROPHILS % (MAN) 96 % (42-78); TOTAL CELLS COUNTED 100
[2020-04-15 08:34] LABS: ANISOCYTOSIS 3+; HYPOCHROMASIA 1+; PLATELET CLUMPS PRESENT; PLATELET COMMENT DECREASED; TEAR DROP CELLS SLIGHT
[2020-04-15 08:37] LABS: BLOOD UREA NITROGEN 36 mg/dL (7-20); CALCIUM 9.4 mg/dL (8.4-10.2); GLUCOSE 193 mg/dL (75-110); POTASSIUM 4.4 mmol/L (3.6-5.0)
[2020-04-15 08:39] LABS: CARBON DIOXIDE 29 mmol/L (22-30); CHLORIDE 103 mmol/L (98-107)
[2020-04-15 08:58] LABS: C-REACTIVE PROTEIN 171.2 mg/L (<10.0)
[2020-04-15] MEDS: BUDESONIDE NEB 0.25 MG/2 ML AMPUL NEB SCH ×2 (08:58→20:29)
[2020-04-15 09:15] LABS: ANION GAP 3 (5-19)
[2020-04-15] MEDS: ZINC SULFATE 220 MG CAPSULE NG SCH (10:13)
[2020-04-15] MEDS: ASCORBIC ACID 500 MG TABLET NG SCH ×2 (10:13→17:20)
[2020-04-15] MEDS: CHOLECALCIFEROL (D3) 1,000 UNIT (25 MCG) TABLET NG SCH (10:13)
[2020-04-15] MEDS: SENNOSIDES/DOCUSATE 8.6-50 MG 1 EACH TABLET NG SCH ×2 (10:13→17:20)
--- NOTE | 2020-04-15 11:40 | PDOC CRITICAL CARE PROG REPORT ---
General Date:: 04/14/20 ICU Day:: 14 Ventilator Day:: 14 Hospital Day:: 24 Resuscitation Status: Full Code Events in the past 12 to 24 Hours:: This 44-year-old -Hungarian female presented to [facility] emergency department on 03/21/2020 with complaints of possible presyncope versus syncope in addition to fever, chills, productive cough, dyspnea and exertional dyspnea. She has a history of psychiatric disorders and is known to be a difficult historian. Nonetheless, the patient also was known to have been diagnosed with COVID-19 pneumonia on 03/17/2020 and had subsequently been evaluated in the emergency department. She was apparently discharged home with prescriptions for azithromycin and other medications for symptomatic treatment. She returned with worsening shortness of breath and newly demonstrating supplemental oxygen requirement. 04/09: Remains intubated. Sedated with Precedex/Versed/fentanyl. On pressure control mode with peak and plateau pressures in the 40s. ABG this a.m.: 7.45/38/64. WBC 20.7>18.3. On Glucerna at 30 mL/h. Nurse reports she has had no bowel movement for several days. 04/10: No events reported overnight. Remains intubated. Still on Precedex/Cordelia sed/fentanyl for sedation. On pressure control ABG this a.m.: 7.38/57/80. WBC 18.317.3. On insulin infusion for glucose control. On Glucerna + Prosource. Creatinine 0.7. KUB obtained yesterday showed a gasless abdomen, incongruent with physical exam (possibly due to morbid obesity). Still no BM. 04/11: Had brisk diuresis with furosemide 40 mg IV single dose (2600 mL urine output), which resulted in a decrease in CVP. However, CVP is now back up to 910. On PRVC mode. ABG this a.m.: 7.46/46/53. Creatinine 0.6. WBC 17.3>11.4. Still no BM. On Versed/fentanyl/Precedex for sedation. Opens eyes to physical stimuli. Tube feeding currently on hold due to high residuals. Of note, even in the absence of tube feeding, the patient is having gastric residuals in the 200s. 04/12: No events reported overnight. Remains intubated. I/O- 6159 mL over the past 24 hours. DVT. On PRVC 22/450/100/12. ABG this a.m.: 7.50/42/59. On Versed/fentanyl/Precedex for sedation. She does demonstrate spontaneous eye opening. She does not follow commands. KUB yesterday demonstrates a paucity of bowel gas (but, no longer gasless). Creatinine 0.7. WBC 11.2. 12/4: No events reported overnight. Was switched to BiVENT/APRV yesterday (FiO2 80%, P high 17, T high 9.5 seconds, P low 3, T low 0.5 seconds). ABG this a.m.: 7.42/50/72. Off insulin infusion. Overnight, the patient had an episode of hypoglycemia (40) despite being on trickle tube feeds. WBC this morning 21.2. No fever. Today, the patient is much more awake. She bites down on the tube. Eyes remain open. Does not follow commands. Creatinine 0.7. 5: No events reported overnight. On BiVENT/APRV. Awake despite sedation with propofol/fentanyl. ABG this a.m. 7.43/43/65. Back on insulin infusion. Afebrile. WBC this morning 22. Review of systems relevant to events:: Pulmonary, psychiatric. Reason for ICU Addmission:: acute respiratory failure, covid -19 pneumonia, intubated. - Medications: Medications reviewed and adjusted accordingly: Yes Vasopressors:: None Sedation:: Precedex/fentanyl/Versed Physical Exam Vital Signs: Temp Pulse Resp BP Pulse Ox 97.8 F 134 H 39 H 112/66 91 L 04/14/20 04:00 04/14/20 08:30 04/14/20 11:11 04/14/20 11:11 04/14/20 11:11 Intake & Output 04/13/20 04/14/20 04/15/20 06:59 06:59 06:59 Intake Total 1180 1537 345 Output Total 1708 8061 97 Balance -807 -456 320 Weight 143.6 kg 145.8 kg Weight/Height Weight 145.8 kg Height 1.6 m General appearance: PRESENT: no acute distress, morbidly obese, well-developed, well-nourished Head exam: PRESENT: atraumatic, normocephalic Eye exam: PRESENT: conjunctiva pink, EOMI, PERRLA. ABSENT: scleral icterus Mouth exam: PRESENT: moist, tongue midline Neck exam: ABSENT: carotid bruit, JVD, lymphadenopathy, thyromegaly Respiratory exam: PRESENT: clear to auscultation reji. ABSENT: rales, rhonchi, wheezes Cardiovascular exam: PRESENT: RRR. ABSENT: diastolic murmur, rubs, systolic murmur Pulses: PRESENT: normal dorsalis pedis pul GI/Abdominal exam: PRESENT: normal bowel sounds, soft. ABSENT: distended, guarding, mass, organolmegaly, rebound, tenderness Gentrourinary exam: PRESENT: indwelling catheter Extremities exam: PRESENT: full ROM, pedal edema, +1 edema. ABSENT: calf tender ness, clubbing Neurological exam: PRESENT: alert, awake, CN II-XII grossly intact. ABSENT: motor sensory deficit Psychiatric exam: PRESENT: agitated, anxious Skin exam: PRESENT: dry, intact, warm. ABSENT: cyanosis, rash Tubes/Lines: PRESENT: Endotracheal Tube, Central Line - Orogastric Laboratory/Radiographs Laboratory Results: 04/14/20 01:59 04/14/20 01:59 04/13/20 04/13/20 04/14/20 03:00 13:45 01:59 WBC 22.0 H RBC 4.27 Hgb 9.9 L Hct 31.2 L MCV 73 L MCH 23.1 L MCHC 31.6 L RDW 27.5 H Plt Count 147 L Seg Neutrophils % Not Reportable Carbonic Acid 1.12 HCO3/H2CO3 Ratio 22:1 ABG pH 7.46 H ABG pCO2 37.2 ABG pO2 66.2 L ABG HCO3 25.6 H ABG O2 Saturation 94.1 ABG Base Excess 1.7 FiO2 90% Sodium Potassium Chloride Carbon Dioxide Anion Gap BUN Creatinine Est GFR ( Amer) Glucose Lactic Acid Calcium Phosphorus Magnesium Triglycerides 139 04/14/20 04/14/20 04/14/20 01:59 01:59 01:59 WBC RBC Hgb Hct MCV MCH MCHC RDW Plt Count Seg Neutrophils % Carbonic Acid 1.29 HCO3/H2CO3 Ratio 21:1 ABG pH 7.43 ABG pCO2 43.0 ABG pO2 64.7 L ABG HCO3 27.9 H ABG O2 Saturation 93.1 L ABG Base Excess 3.2 FiO2 90% Sodium 138.1 Potassium 4.0 Chloride 102 Carbon Dioxide 28 Anion Gap 8 BUN 30 H Creatinine 0.47 L Est GFR ( Amer) > 60 Glucose 175 H Lactic Acid 1.1 Calcium 9.6 Phosphorus 3.4 Magnesium 2.1 Triglycerides 03/21/20 04/11/20 04/14/20 21:58 03:05 01:59 Troponin I < 0.012 NT-Pro-B Natriuret Pep 192 H 184 H Impressions: Abdomen Ultrasound 04/10/20 00:00 IMPRESSION: NO EVIDENCE FOR ASCITES. KUB X-Ray 04/11/20 00:00 IMPRESSION: 1. Similar appearance of the abdomen with a relative paucity of bowel gas. 2. The tip of the enteric tube projects within the gastric lumen. Chest X-Ray 04/14/20 05:00 IMPRESSION: Slight improvement. No pneumothorax. All labs, radiographs, diagnostic studies and EKGs were personally reviewed: Yes In addition, reports of radiographic and diagnostic studies were read: Yes Assessment and Plan - Diagnosis (1) Acute respiratory failure with hypoxia and hypercapnia Is this a current diagnosis for this admission?: Yes Plan: * CVP 4-5 * Titrate vent settings based on ABG results. * Continue BiVENT. * Titrate sedation for RASS -2. At this time, the patient is under sedated (needs more for sedation). * Change Versed/Precedex infusion to propofol. (2) Pneumonia due to COVID-19 virus Is this a current diagnosis for this admission?: Yes Plan: * Continue Decadron 6 mg IV every 12 hours. (3) Constipation Qualifiers: Constipation type: slow transit constipation Qualified Code(s): K59.01 - Slow transit constipation Is this a current diagnosis for this admission?: Yes (4) Leukocytosis Qualifiers: Leukocytosis type: unspecified Qualified Code(s): D72.829 - Elevated white blood cell count, unspecified Is this a current diagnosis for this admission?: Yes (5) Normocytic anemia Is this a current diagnosis for this admission?: Yes (6) Schizophrenia Qualifiers: Schizophrenia type: unspecified Qualified Code(s): F20.9 - Schizophrenia, unspecified Is this a current diagnosis for this admission?: Yes (7) Hypoglycemia Is this a current diagnosis for this admission?: Yes Critical Time Critical Time (minutes): 60 Level of Care: ICU -: 1. The care of a critical patient is a dynamic process. This note is a sales representative raw fibers synopsis but static in nature. The timeframe for treatments given in order is not necessarily the actual time these treatments may have been done. 2. This patient requires critical care secondary to ongoing requirements for therapy not offered or safe outside the critical care environment. Transfer to a lower level of care will result in altered life or limb morbidity and mortality. 3. Multidisciplinary rounds completed. 4. ABCDE bundle addressed.
[2020-04-15] MEDS ORDERED: VANCOMYCIN HCL 0 MG in DEXTROSE 5%-WATER 250 ML IV NR (11:45)
[2020-04-15 12:53] LABS: ARTERIAL BLOOD BASE EXCESS 2.3 mmol/L; ARTERIAL BLOOD HCO3 28.6 mmol/L (20-24); ARTERIAL BLOOD O2 SATURATION 95.8 % (94-98); ARTERIAL BLOOD PCO2 53.3 mmHg (35-45); ARTERIAL BLOOD PH 7.35 (7.35-7.45); ARTERIAL BLOOD PO2 85.4 mmHg (80-100); ARTERIAL BLOOD TOTAL CO2 30.2 mmol/L (21-25)
[2020-04-15 12:54] LABS: ARTERIAL BLOOD FIO2 90%
[2020-04-15] MEDS: VANCOMYCIN HCL 1,000 MG in DEXTROSE 5%-WATER 250 ML IV SCH ×2 (14:30→23:17)
[2020-04-15] MEDS: NORMAL SALINE 100 ML with INSULIN REGULAR, HUMAN 100 UNIT IV PRN ×2 (17:24)
[2020-04-15] MEDS ORDERED: FUROSEMIDE INJ/PF 40 MG/4 ML SDV ONE (18:02)
[2020-04-15] MEDS ORDERED: FUROSEMIDE INJ/PF 40 MG/4 ML SDV IV ONE (18:15)
--- NOTE | 2020-04-15 19:00 | PDOC CRITICAL CARE PROG REPORT ---
General Date:: 04/15/20 ICU Day:: 15 Ventilator Day:: 15 Hospital Day:: 25 Resuscitation Status: Full Code Events in the past 12 to 24 Hours:: This 44-year-old -[place] female [facility]2020 with complaints of possible presyncope versus syncope in addition to fever, chills, productive cough, dyspnea and exertional dyspnea. She has a history of psychiatric disorders and is known to be a difficult historian. Nonetheless, the patient also was known to have been diagnosed with COVID-19 pneumonia on 03/17/2020 and had subsequently been evaluated in the emergency department. She was apparently discharged home with prescriptions for azithromycin and other medications for symptomatic treatment. She returned with worsening shortness of breath and newly demonstrating supplemental oxygen requirement. 04/09: Remains intubated. Sedated with Precedex/Versed/fentanyl. On pressure control mode with peak and plateau pressures in the 40s. ABG this a.m.: 7.45/38/64. WBC 20.7>18.3. On Glucerna at 30 mL/h. Nurse reports she has had no bowel movement for several days. 04/10: No events reported overnight. Remains intubated. Still on Precedex/Cordelia sed/fentanyl for sedation. On pressure control ABG this a.m.: 7.38/57/80. WBC 18.317.3. On insulin infusion for glucose control. On Glucerna + Prosource. Creatinine 0.7. KUB obtained yesterday showed a gasless abdomen, incongruent with physical exam (possibly due to morbid obesity). Still no BM. 04/11: Had brisk diuresis with furosemide 40 mg IV single dose (2600 mL urine output), which resulted in a decrease in CVP. However, CVP is now back up to 910. On PRVC mode. ABG this a.m.: 7.46/46/53. Creatinine 0.6. WBC 17.3>11.4. Still no BM. On Versed/fentanyl/Precedex for sedation. Opens eyes to physical stimuli. Tube feeding currently on hold due to high residuals. Of note, even in the absence of tube feeding, the patient is having gastric residuals in the 200s. 04/12: No events reported overnight. Remains intubated. I/O- 6159 mL over the past 24 hours. DVT. On PRVC 22/450/100/12. ABG this a.m.: 7.50/42/59. On Versed/fentanyl/Precedex for sedation. She does demonstrate spontaneous eye opening. She does not follow commands. KUB yesterday demonstrates a paucity of bowel gas (but, no longer gasless). Creatinine 0.7. WBC 11.2. 4: No events reported overnight. Was switched to BiVENT/APRV yesterday (FiO2 80%, P high 17, T high 9.5 seconds, P low 3, T low 0.5 seconds). ABG this a.m.: 7.42/50/72. Off insulin infusion. Overnight, the patient had an episode of hypoglycemia (40) despite being on trickle tube feeds. WBC this morning 21.2. No fever. Today, the patient is much more awake. She bites down on the tube. Eyes remain open. Does not follow commands. Creatinine 0.7. 04/14: No events reported overnight. On BiVENT/APRV. Awake despite sedation with propofol/fentanyl. ABG this a.m. 7.43/43/65. Back on insulin infusion. Afebrile. WBC this morning 22. 12/6: No events reported overnight. On BiVENT/APRV. Appears to be overly se dated. ABG this a.m. 7., indeed compatible with oversedation. On and off insulin infusion. Glucose coming under better control. Afebrile. WBC 18.2. Blood cultures (04/13) isolated gram-positive cocci in clusters. Tracheal aspirate (/4) isolated Staphylococcus aureus. Review of systems relevant to events:: Pulmonary, psychiatric. Reason for ICU Addmission:: acute respiratory failure, covid -19 pneumonia, intubated. - Medications: Medications reviewed and adjusted accordingly: Yes Vasopressors:: None Sedation:: Propofol/Precedex/fentanyl Physical Exam Vital Signs: Temp Pulse Resp BP Pulse Ox 97.8 F 107 H 23 H 108/65 94 04/15/20 10:00 04/15/20 10:00 04/15/20 10:07 04/15/20 10:07 04/15/20 10:07 Intake & Output 1204/15/20 04/16/20 06:59 06:59 06:59 Intake Total 1537 2347 105 Output Total 1795 950 200 Balance -258 1397 -95 Weight 145.8 kg 145.4 kg Weight/Height Weight 145.4 kg Height 1.6 m General appearance: PRESENT: no acute distress, morbidly obese, well-developed, well-nourished Head exam: PRESENT: atraumatic, normocephalic Eye exam: PRESENT: conjunctiva pink, EOMI, PERRLA. ABSENT: scleral icterus Mouth exam: PRESENT: moist, tongue midline Neck exam: PRESENT: carotid bruit Respiratory exam: PRESENT: clear to auscultation reji, symmetrical. ABSENT: rales, rhonchi, wheezes Cardiovascular exam: PRESENT: RRR. ABSENT: diastolic murmur, rubs, systolic murmur Pulses: PRESENT: normal dorsalis pedis pul GI/Abdominal exam: PRESENT: normal bowel sounds, soft. ABSENT: distended, guarding, mass, organolmegaly, rebound, tenderness Gentrourinary exam: PRESENT: indwelling catheter Extremities exam: PRESENT: full ROM. ABSENT: calf tenderness, clubbing, pedal edema Neurological exam: PRESENT: altered, CN II-XII grossly intact. ABSENT: motor sensory deficit Psychiatric exam: ABSENT: agitated, anxious Skin exam: PRESENT: dry, intact, warm. ABSENT: cyanosis, rash Tubes/Lines: PRESENT: Endotracheal Tube - Insertion date 04/01, Central Line - Left IJ, insertion date 04/01, Nasogastic Tube Laboratory/Radiographs Laboratory Results: 04/15/20 07:40 04/15/20 07:40 04/15/20 04/15/20 04/15/20 07:40 07:40 07:40 WBC 18.2 H RBC 3.51 L Hgb 8.0 L Hct 25.9 L MCV 74 L MCH 22.8 L MCHC 31.0 L RDW 26.9 H Plt Count 121 L Seg Neutrophils % Not Reportable Carbonic Acid 1.83 H HCO3/H2CO3 Ratio 15:1 ABG pH 7.28 L ABG pCO2 60.7 H ABG pO2 72.4 L ABG HCO3 27.6 H ABG O2 Saturation 92.2 L ABG Base Excess 0.2 FiO2 95% Sodium 134.5 L Potassium 4.4 Chloride 103 Carbon Dioxide 29 Anion Gap 3 L BUN 36 H Creatinine 0.94 Est GFR ( Amer) > 60 Glucose 193 H Calcium 9.4 C-Reactive Protein 171.2 H 04/13/20 14:53 Fernandez Catheter Urine Culture - Final NO GROWTH 2 DAYS 04/13/20 18:41 Blood Blood Culture (PCR) - Final Staphylococcus Species 04/13/20 14:53 Tracheal Aspirate Gram Stain - Final 04/13/20 14:53 Tracheal Aspirate Sputum Culture - Final Staphylococcus Aureus Normal Chloe Absent 04/13/20 14:53 Blood Blood Culture (PCR) - Final Staphylococcus Aureus 03/21/20 04/11/20 04/14/20 21:58 03:05 01:59 Troponin I < 0.012 NT-Pro-B Natriuret Pep 192 H 184 H Impressions: Abdomen Ultrasound 04/10/20 00:00 IMPRESSION: NO EVIDENCE FOR ASCITES. KUB X-Ray 04/11/20 00:00 IMPRESSION: 1. Similar appearance of the abdomen with a relative paucity of bowel gas. 2. The tip of the enteric tube projects within the gastric lumen. Chest X-Ray 04/14/20 05:00 IMPRESSION: Slight improvement. No pneumothorax. All labs, radiographs, diagnostic studies and EKGs were personally reviewed: Yes In addition, reports of radiographic and diagnostic studies were read: Yes Assessment and Plan - Diagnosis (1) Acute respiratory failure with hypoxia and hypercapnia Is this a current diagnosis for this admission?: Yes Plan: * CVP 14. Diurese. * Titrate vent settings based on ABG results. * Continue BiVENT. * Titrate sedation for RASS -2. At this time, the patient is under sedated (needs more for sedation). * Change Versed/Precedex infusion to propofol. (2) Pneumonia due to COVID-19 virus Is this a current diagnosis for this admission?: Yes Plan: * Continue Decadron 6 mg IV every 12 hours. (3) Staphylococcus aureus bacteremia Is this a current diagnosis for this admission?: Yes Plan: Start vancomycin (04/15). (4) Staphylococcal pneumonia Is this a current diagnosis for this admission?: Yes Plan: Start vancomycin (04/15). (5) Constipation Qualifiers: Constipation type: slow transit constipation Qualified Code(s): K59.01 - Slow transit constipation Is this a current diagnosis for this admission?: Yes (6) Leukocytosis Qualifiers: Leukocytosis type: unspecified Qualified Code(s): D72.829 - Elevated white blood cell count, unspecified Is this a current diagnosis for this admission?: Yes (7) Normocytic anemia Is this a current diagnosis for this admission?: Yes (8) Schizophrenia Qualifiers: Schizophrenia type: unspecified Qualified Code(s): F20.9 - Schizophrenia, unspecified Is this a current diagnosis for this admission?: Yes (9) Steroid-induced hyperglycemia Is this a current diagnosis for this admission?: Yes Plan: * Although this patient has been requiring treatment with insulin for glucose control (albeit, with ongoing high-dose steroid therapy), it is noted that this patient has no history of diabetes. * Of note, hemoglobin A1c 6.0% (04/13, recheck 04/14). * Continue to monitor fingerstick glucose values every hour while on insulin infusion. (10) Hypoglycemia Is this a current diagnosis for this admission?: Yes Plan: * Continue to monitor fingerstick glucose values every hour while on insulin infusion. Critical Time Critical Time (minutes): 60 Level of Care: ICU -: 1. The care of a critical patient is a dynamic process. This note is a customer engagement representative synopsis but static in nature. The timeframe for treatments given in order is not necessarily the actual time these treatments may have been done. 2. This patient requires critical care secondary to ongoing requirements for therapy not offered or safe outside the critical care environment. Transfer to a lower level of care will result in altered life or limb morbidity and mortality. 3. Multidisciplinary rounds completed. 4. ABCDE bundle addressed.
[2020-04-15] MEDS: POLYETHYLENE GLYCOL 3350 POWDER 17 GM/1 PACKET NG PRN (23:38)
[2020-04-15] MEDS ORDERED: PANTOPRAZOLE SODIUM 40 MG VIAL IV ONE (23:45)
[2020-04-16] MEDS: DEXMEDETOMIDINE IN NS 400 MCG/100 ML RTUPB IV PRN ×4 (00:20→23:55)
[2020-04-16] MEDS: PROPOFOL 1,000 MG/100 ML INFUS..BTL IV PRN ×4 (01:30→18:25)
[2020-04-16] MEDS: ALBUTEROL SULFATE 0.083% NEB 2.5 MG/3 ML AMPUL NEB SCH ×4 (02:16→19:53)
[2020-04-16] MEDS: FENTANYL CITRATE/PF 600 MCG/60 ML BAG IV PRN ×6 (03:20→22:13)
[2020-04-16 06:17] LABS: ARTERIAL BLOOD H2CO3 1.77 mmol/L (1.05-1.35); ARTERIAL BLOOD O2 SATURATION 96.3 % (94-98); ARTERIAL BLOOD PCO2 58.7 mmHg (35-45); ARTERIAL BLOOD PH 7.31 (7.35-7.45); ARTERIAL BLOOD PO2 92.7 mmHg (80-100); ARTERIAL BLOOD TOTAL CO2 30.8 mmol/L (21-25)
[2020-04-16 06:18] LABS: ARTERIAL BLOOD FIO2 95%
[2020-04-16] MEDS ORDERED: ALTEPLASE INJ 2 MG VIAL (CATH CLEARANCE) IV ONE (08:00)
--- NOTE | 2020-04-16 08:31 | RADIOLOGY REPORT (SQ) ---
EXAM DESCRIPTION: CHEST SINGLE VIEW IMAGES COMPLETED DATE/TIME: 04/16/2020 6:08 am REASON FOR STUDY: ETT tube COMPARISON: AP view of the chest from 04/14/2020. EXAM PARAMETERS: NUMBER OF VIEWS: One view. TECHNIQUE: An AP view of the chest was obtained. RADIATION DOSE: NA LIMITATIONS: None. FINDINGS: LUNGS AND PLEURA: Unchanged appearance of the lungs and pleura. MEDIASTINUM AND HILAR STRUCTURES: Stable mediastinal and hilar contours. HEART AND VASCULAR STRUCTURES: Stable enlarged cardiac silhouette. BONES: No acute findings. HARDWARE: The tip of the endotracheal tube projects 3.1 cm above the daisy. The tip of the left IJ central venous catheter projects within the SVC. The tip of the enteric tube projects past the gastr oesophageal junction and outside the field of view of the radiograph. OTHER: No other finding. IMPRESSION: Tubes and lines as above. Otherwise unchanged radiographic appearance of the chest. TECHNICAL DOCUMENTATION: JOB ID: [id number] 2010 [employer]- All Rights Reserved Reading location - IP/workstation name: [email or web address]
[2020-04-16] MEDS: HEPARIN SOD (PORCINE) 5,000 UNIT/ML 1 ML VIAL SUBCUT SCH ×3 (08:34→22:05)
[2020-04-16] MEDS: METOCLOPRAMIDE HCL INJ/PF 10 MG/2 ML SDV IV SCH ×3 (08:35→17:15)
[2020-04-16] MEDS: METHYLPREDNISOLONE INJ 40 MG/1 ML SDV IV SCH (08:35)
[2020-04-16] MEDS: BUDESONIDE NEB 0.25 MG/2 ML AMPUL NEB SCH ×2 (08:37→19:53)
[2020-04-16] MEDS: VANCOMYCIN HCL 1,000 MG in DEXTROSE 5%-WATER 250 ML IV SCH ×2 (08:41→13:20)
[2020-04-16 09:03] LABS: HEMATOCRIT 28.4 % (36.0-47.0); HEMOGLOBIN 9.1 g/dL (12.0-15.5); MEAN CORPUSCULAR HEMOGLOBIN 23.1 pg (27.0-33.4); MEAN CORPUSCULAR VOLUME 72 fl (80-97); PLATELET COUNT 181 10^3/uL (150-450); RED BLOOD COUNT 3.93 10^6/uL (3.72-5.28); RED CELL DISTRIBUTION WIDTH 27.1 % (11.5-14.0); WHITE BLOOD COUNT 22.8 10^3/uL (4.0-10.5)
--- NOTE | 2020-04-16 09:12 | PDOC CRITICAL CARE PROG REPORT ---
General Date:: 04/16/20 ICU Day:: 15 Ventilator Day:: 15 Hospital Day:: 22 Resuscitation Status: Full Code Events in the past 12 to 24 Hours:: This 44-year-old -[place] female presented to [facility] emergency department on 03/21/2020 with complaints of possible presyncope versus syncope in addition to fever, chills, productive cough, dyspnea and exertional dyspnea. She has a history of psychiatric disorders and is known to be a difficult historian. Nonetheless, the patient also was known to have been diagnosed with COVID-19 pneumonia on 03/17/2020 and had subsequently been evaluated in the emergency department. She was apparently discharged home with prescriptions for azithromycin and other medications for symptomatic treatment. She returned with worsening shortness of breath and newly demonstrating supplemental oxygen requirement. 04/09: Remains intubated. Sedated with Precedex/Versed/fentanyl. On pressure control mode with peak and plateau pressures in the 40s. ABG this a.m.: 7.45/38/64. WBC 20.7>18.3. On Glucerna at 30 mL/h. Nurse reports she has had no bowel movement for several days. 04/10: No events reported overnight. Remains intubated. Still on Precedex/Cordelia sed/fentanyl for sedation. On pressure control ABG this a.m.: 7.38/57/80. WBC 18.317.3. On insulin infusion for glucose control. On Glucerna + Prosource. Creatinine 0.7. KUB obtained yesterday showed a gasless abdomen, incongruent with physical exam (possibly due to morbid obesity). Still no BM. 04/11: Had brisk diuresis with furosemide 40 mg IV single dose (2600 mL urine output), which resulted in a decrease in CVP. However, CVP is now back up to 910. On PRVC mode. ABG this a.m.: 7.46/46/53. Creatinine 0.6. WBC 17.3>11.4. Still no BM. On Versed/fentanyl/Precedex for sedation. Opens eyes to physical stimuli. Tube feeding currently on hold due to high residuals. Of note, even in the absence of tube feeding, the patient is having gastric residuals in the 200s. 04/12: No events reported overnight. Remains intubated. I/O- 6159 mL over the past 24 hours. DVT. On PRVC 22/450/100/12. ABG this a.m.: 7.50/42/59. On Versed/fentanyl/Precedex for sedation. She does demonstrate spontaneous eye opening. She does not follow commands. KUB yesterday demonstrates a paucity of bowel gas (but, no longer gasless). Creatinine 0.7. WBC 11.2. 4: No events reported overnight. Was switched to BiVENT/APRV yesterday (FiO2 80%, P high 17, T high 9.5 seconds, P low 3, T low 0.5 seconds). ABG this a.m.: 7.42/50/72. Off insulin infusion. Overnight, the patient had an episode of hypoglycemia (40) despite being on trickle tube feeds. WBC this morning 21.2. No fever. Today, the patient is much more awake. She bites down on the tube. Eyes remain open. Does not follow commands. Creatinine 0.7. 04/14: No events reported overnight. On BiVENT/APRV. Awake despite sedation with propofol/fentanyl. ABG this a.m. 7.43/43/65. Back on insulin infusion. Afebrile. WBC this morning 22. 12/6: No events reported overnight. On BiVENT/APRV. Appears to be overly sedated. ABG this a.m. 7.//72, indeed compatible with oversedation. On and off insulin infusion. Glucose coming under better control. Afebrile. WBC 18.2. Blood cultures (04/13) isolated gram-positive cocci in clusters. Tracheal aspirate (/4) isolated Staphylococcus aureus. 04/16: Seems to be awake but not oriented. Not answering questions. Still on bivent. Very difficult to adaquatley sedate. GPC seems to be MSSA. Final report pending. Review of systems relevant to events:: Pulmonary, neurological, pshychiatric. Reason for ICU Addmission:: acute respiratory failure, covid -19 pneumonia, intubated. - Medications: Medications reviewed and adjusted accordingly: Yes Vasopressors:: None Sedation:: Precedex, fentanly, propofol. Physical Exam Vital Signs: Temp Pulse Resp BP Pulse Ox 100.2 F 111 H 32 H 88/64 L 97 04/16/20 08:00 04/16/20 07:00 04/16/20 08:38 04/16/20 08:38 04/16/20 08:38 Intake & Output 04/15/20 04/16/20 04/17/20 06:59 06:59 06:59 Intake Total 2347 879 Output Total 950 2540 25 Balance 1397 -1661 -25 Weight 145.4 kg 145.9 kg Weight/Height Weight 145.9 kg Height 5 ft 3 in General appearance: PRESENT: no acute distress, morbidly obese, well-developed, well-nourished Head exam: PRESENT: atraumatic, normocephalic Eye exam: PRESENT: conjunctiva pink, EOMI, PERRLA. ABSENT: scleral icterus Ear exam: PRESENT: normal external ear exam Mouth exam: PRESENT: moist, tongue midline Respiratory exam: PRESENT: clear to auscultation reji. ABSENT: rales, rhonchi, wheezes Cardiovascular exam: PRESENT: RRR, tachycardia. ABSENT: diastolic murmur, rubs, systolic murmur GI/Abdominal exam: PRESENT: normal bowel sounds, soft. ABSENT: distended, guarding, mass, organolmegaly, rebound, tenderness Rectal exam: PRESENT: deferred Gentrourinary exam: PRESENT: indwelling catheter Extremities exam: PRESENT: full ROM. ABSENT: calf tenderness, clubbing, pedal edema Musculoskeletal exam: PRESENT: normal inspection Neurological exam: PRESENT: altered, awake, other - Sedqted Psychiatric exam: PRESENT: agitated - On ocassion. Skin exam: PRESENT: dry, intact, warm. ABSENT: cyanosis, rash Tubes/Lines: PRESENT: Endotracheal Tube, Central Line, Nasogastic Tube Laboratory/Radiographs Laboratory Results: 04/15/20 04/15/20 04/16/20 07:40 12:30 05:30 Carbonic Acid 1.60 H 1.77 H HCO3/H2CO3 Ratio 17:1 16:1 ABG pH 7.35 7.31 L ABG pCO2 53.3 H 58.7 H ABG pO2 85.4 92.7 ABG HCO3 28.6 H 29.0 H ABG O2 Saturation 95.8 96.3 ABG Base Excess 2.3 2.0 FiO2 90% 95% Anion Gap 3 L 04/13/20 18:41 Blood Blood Culture (PCR) - Final Staphylococcus Species 04/13/20 14:53 Blood Blood Culture (PCR) - Final Staphylococcus Aureus 04/13/20 14:53 Fernandez Catheter Urine Culture - Final NO GROWTH 2 DAYS 04/13/20 14:53 Tracheal Aspirate Gram Stain - Final 04/13/20 14:53 Tracheal Aspirate Sputum Culture - Final Staphylococcus Aureus Normal Chloe Absent 03/21/20 04/11/20 04/14/20 21:58 03:05 01:59 Troponin I < 0.012 NT-Pro-B Natriuret Pep 192 H 184 H Impressions: Abdomen Ultrasound 04/10/20 00:00 IMPRESSION: NO EVIDENCE FOR ASCITES. KUB X-Ray 04/11/20 00:00 IMPRESSION: 1. Similar appearance of the abdomen with a relative paucity of bowel gas. 2. The tip of the enteric tube projects within the gastric lumen. Chest X-Ray 04/16/20 05:00 IMPRESSION: Tubes and lines as above. Otherwise unchanged radiographic appearance of the chest. All labs, radiographs, diagnostic studies and EKGs were personally reviewed: Yes In addition, reports of radiographic and diagnostic studies were read: Yes Assessment and Plan - Diagnosis (1) Pneumonia due to COVID-19 virus Is this a current diagnosis for this admission?: Yes Plan: Still on 100%. Cannot make meaningful changes to vent. Off rocuronium, not proned. Prolonged vent course. (2) Morbid obesity with BMI of 50.0-59.9, adult Is this a current diagnosis for this admission?: Yes Plan: Impacting abilty to ventilate and prone. A risk factor of Covid mortality. (3) Schizophrenia Qualifiers: Schizophrenia type: unspecified Qualified Code(s): F20.9 - Schizophrenia, unspecified Is this a current diagnosis for this admission?: Yes Plan: May be impacting her mental status. Impossible to tell right now. (4) Anemia Is this a current diagnosis for this admission?: Yes Plan: Not clear why except prolonged ICU course. Not in need of transfusion. No sign of bleeding. Recheck labs in AM. Plan Summary: Maintain as is and make sure she is well sedated. Critical Time Critical Time (minutes): 35 Level of Care: ICU Anticipated discharge: SNF Anticipated DC Timeframe: Other -: 1. The care of a critical patient is a dynamic process. This note is a bottling equipment sales representative synopsis but static in nature. The timeframe for treatments given in order is not necessarily the actual time these treatments may have been done. 2. This patient requires critical care secondary to ongoing requirements for therapy not offered or safe outside the critical care environment. Transfer to a lower level of care will result in altered life or limb morbidity and mortality. 3. Multidisciplinary rounds completed. 4. ABCDE bundle addressed.
[2020-04-16 09:17] LABS: ALBUMIN 2.8 g/dL (3.5-5.0); ALKALINE PHOSPHATASE 70 U/L (38-126); ANION GAP 5 (5-19); ASPARTATE AMINO TRANSFERASE 41 U/L (14-36); BILIRUBIN,DIRECT 0.5 mg/dL (0.0-0.4); BILIRUBIN,TOTAL 1.2 mg/dL (0.2-1.3); BLOOD UREA NITROGEN 33 mg/dL (7-20); CALCIUM 9.4 mg/dL (8.4-10.2); CARBON DIOXIDE 30 mmol/L (22-30); CHLORIDE 102 mmol/L (98-107); GLUCOSE 164 mg/dL (75-110); PHOSPHORUS 3.3 mg/dL (2.5-4.5); POTASSIUM 4.4 mmol/L (3.6-5.0)
[2020-04-16] MEDS: CHOLECALCIFEROL (D3) 1,000 UNIT (25 MCG) TABLET NG SCH (09:34)
[2020-04-16] MEDS: AMINO AC/PROTEIN HYDR/WHEY PRO 11 GM/45 ML PKT NG SCH ×4 (09:34→22:06)
[2020-04-16] MEDS: SENNOSIDES/DOCUSATE 8.6-50 MG 1 EACH TABLET NG SCH ×2 (09:34→17:15)
[2020-04-16] MEDS: ZINC SULFATE 220 MG CAPSULE NG SCH (09:35)
[2020-04-16] MEDS: FAMOTIDINE INJ/PF 20 MG/2 ML SDV IV SCH ×2 (09:35→22:06)
[2020-04-16] MEDS: ASCORBIC ACID 500 MG TABLET NG SCH ×2 (09:35→17:15)
[2020-04-16 09:57] LABS: ABSOLUTE LYMPHOCYTES# (MANUAL) 0.9 10^3/uL (0.5-4.7); ABSOLUTE MONOCYTES # (MANUAL) 0.7 10^3/uL (0.1-1.4); BAND NEUTROPHILS % (MANUAL) 1 % (3-5); BASOPHILS % (MANUAL) 0 % (0-2); EOSINOPHILS % (MANUAL) 0 % (0-6); LYMPHOCYTES % (MANUAL) 4 % (13-45); MONOCYTES % (MANUAL) 3 % (3-13); SEGMENTED NEUTROPHILS % (MAN) 92 % (42-78); TOTAL CELLS COUNTED 100
[2020-04-16 09:58] LABS: ANISOCYTOSIS 3+; PLATELET COMMENT ADEQUATE; POIKILOCYTOSIS 1+; STOMATOCYTES 1+
[2020-04-16] MEDS ORDERED: PANTOPRAZOLE SODIUM 40 MG VIAL IV SCH (10:00)
[2020-04-16 10:21] LABS: ARTERIAL BLOOD BASE EXCESS 3.3 mmol/L; ARTERIAL BLOOD H2CO3 1.63 mmol/L (1.05-1.35); ARTERIAL BLOOD HCO3 29.6 mmol/L (20-24); ARTERIAL BLOOD O2 SATURATION 95.9 % (94-98); ARTERIAL BLOOD PCO2 54.3 mmHg (35-45); ARTERIAL BLOOD PH 7.35 (7.35-7.45); ARTERIAL BLOOD PO2 85.6 mmHg (80-100); ARTERIAL BLOOD TOTAL CO2 31.2 mmol/L (21-25)
[2020-04-16 10:29] LABS: ARTERIAL BLOOD FIO2 95%
[2020-04-16] MEDS: CEFTRIAXONE 1 GM/D5W RTU 1 GM/50 ML RTUPB IV SCH ×2 (14:55→17:17)
[2020-04-16] MEDS: NORMAL SALINE 100 ML with INSULIN REGULAR, HUMAN 100 UNIT IV PRN ×2 (21:14)
[2020-04-17] MEDS: METOCLOPRAMIDE HCL INJ/PF 10 MG/2 ML SDV IV SCH ×5 (00:16→23:59)
[2020-04-17] MEDS: FENTANYL CITRATE/PF 600 MCG/60 ML BAG IV PRN ×8 (00:57→21:06)
[2020-04-17] MEDS ORDERED: MIDAZOLAM 2 MG/2 ML INJ ONE (01:10)
[2020-04-17] MEDS ORDERED: MIDAZOLAM HCL 50 MG/100 ML RTUINJ ONE (01:10)
[2020-04-17] MEDS: MIDAZOLAM HCL 50 MG/100 ML RTUINJ IV PRN ×9 (01:20→23:40)
[2020-04-17] MEDS: PROPOFOL 1,000 MG/100 ML INFUS..BTL IV PRN (01:20)
[2020-04-17] MEDS ORDERED: MIDAZOLAM 2 MG/2 ML INJ IV ONE (01:20)
[2020-04-17] MEDS: ALBUTEROL SULFATE 0.083% NEB 2.5 MG/3 ML AMPUL NEB SCH ×4 (02:22→21:30)
[2020-04-17 03:45] LABS: ARTERIAL BLOOD BASE EXCESS 4.4 mmol/L; ARTERIAL BLOOD H2CO3 1.67 mmol/L (1.05-1.35); ARTERIAL BLOOD HCO3 30.8 mmol/L (20-24); ARTERIAL BLOOD O2 SATURATION 80.7 % (94-98); ARTERIAL BLOOD PCO2 55.6 mmHg (35-45); ARTERIAL BLOOD PH 7.36 (7.35-7.45); ARTERIAL BLOOD PO2 47.2 mmHg (80-100); ARTERIAL BLOOD TOTAL CO2 32.5 mmol/L (21-25)
[2020-04-17 03:47] LABS: ARTERIAL BLOOD FIO2 100%
[2020-04-17 03:52] LABS: ABSOLUTE BASOPHILS # (AUTO) 0.1 10^3/uL (0.0-0.2); ABSOLUTE EOSINOPHILS # (AUTO) 0.9 10^3/uL (0.0-0.6); ABSOLUTE LYMPHOCYTES (AUTO) 1.6 10^3/uL (0.5-4.7); ABSOLUTE MONOCYTES (AUTO) 1.4 10^3/uL (0.1-1.4); ABSOLUTE NEUT (AUTO) 15.6 10^3/uL (1.7-8.2); BASOPHILS % (AUTO) 0.4 % (0-2); EOSINOPHILS % (AUTO) 4.7 % (0-6); HEMATOCRIT 26.9 % (36.0-47.0); HEMOGLOBIN 8.4 g/dL (12.0-15.5); LYMPHOCYTES % (AUTO) 8.3 % (13-45); MEAN CORPUSCULAR HEMOGLOBIN 22.9 pg (27.0-33.4); MEAN CORPUSCULAR HGB CONC 31.1 g/dL (32.0-36.0); MEAN CORPUSCULAR VOLUME 74 fl (80-97); MONOCYTES % (AUTO) 6.9 % (3-13); PLATELET COUNT 165 10^3/uL (150-450); RED BLOOD COUNT 3.64 10^6/uL (3.72-5.28); RED CELL DISTRIBUTION WIDTH 26.4 % (11.5-14.0); SEGMENTED NEUTROPHILS % (AUTO) 79.7 % (42-78); TOTAL CELLS COUNTED % (AUTO) 100 %; WHITE BLOOD COUNT 19.5 10^3/uL (4.0-10.5)
[2020-04-17] MEDS ORDERED: ROCURONIUM BROMIDE INJ 50 MG/5 ML VIAL IV ONE ×2 (04:05→09:56)
[2020-04-17] MEDS: NORMAL SALINE 500 ML with ROCURONIUM BROMIDE 500 MG IV PRN ×6 (04:05→21:11)
[2020-04-17 04:07] LABS: BLOOD UREA NITROGEN 33 mg/dL (7-20); C-REACTIVE PROTEIN 85.3 mg/L (<10.0); CALCIUM 9.6 mg/dL (8.4-10.2); GLUCOSE 83 mg/dL (75-110); POTASSIUM 3.6 mmol/L (3.6-5.0)
[2020-04-17 04:09] LABS: VANCOMYCIN,TROUGH 12.5 ug/mL (5.0-20.0)
[2020-04-17 04:10] LABS: ANISOCYTOSIS 3+; CARBON DIOXIDE 31 mmol/L (22-30); CHLORIDE 102 mmol/L (98-107); POIKILOCYTOSIS 3+; TOXIC GRANULATION 1+
[2020-04-17 04:11] LABS: OVALOCYTES 2+; PLATELET COMMENT ADEQUATE; SCHISTOCYTES SLIGHT; TEAR DROP CELLS 2+
[2020-04-17 04:16] LABS: ANION GAP 3 (5-19)
[2020-04-17] MEDS ORDERED: SUCCINYLCHOLINE CHLORIDE INJ 200 MG/10 ML VIAL IV ONE (04:34)
--- NOTE | 2020-04-17 04:44 | RADIOLOGY REPORT (SQ) ---
EXAM DESCRIPTION: XR CHEST 1 VIEW COMPLETED DATE/TME: 04/17/2020 04:20 CLINICAL HISTORY: Respiratory Failure COMPARISON: 04/16/2020 FINDINGS: Single frontal view of the chest. Tubes and lines: Endotracheal tube with tip 2 cm above the daisy. Left IJ central venous catheter tip in the SVC. Leads overlie the chest. Cardiomediastinal silhouette: Stable Lungs: Interval increase in diffuse bilateral interstitial and airspace opacities. No pneumothorax. Bones: Stable. Upper abdomen: Stable. IMPRESSION: 1. Mild interval increase in diffuse bilateral interstitial and airspace opacities.
[2020-04-17] MEDS ORDERED: PHARMACY COMMUNICATION ORDER MC ONE (05:30)
[2020-04-17] MEDS ORDERED: NOREPINEPHRINE BITARTRATE INJ/PF 4 MG/4 ML SDV IV ONE (05:33)
[2020-04-17] MEDS ORDERED: DEXTROSE 5%-WATER 250 ML with NOREPINEPHRINE BITARTRATE 4 MG IV PRN ×2 (06:27)
[2020-04-17] MEDS: HEPARIN SOD (PORCINE) 5,000 UNIT/ML 1 ML VIAL SUBCUT SCH ×3 (06:35→21:11)
--- NOTE | 2020-04-17 08:24 | PDOC CRITICAL CARE PROG REPORT ---
General Date:: 04/17/20 ICU Day:: 16 Ventilator Day:: 16 Hospital Day:: 26 Resuscitation Status: Full Code Events in the past 12 to 24 Hours:: This 44-year-old -[place] female presented to [facility] emergency department on 03/21/2020 with complaints of possible presyncope versus syncope in addition to fever, chills, productive cough, dyspnea and exertional dyspnea. She has a history of psychiatric disorders and is known to be a difficult historian. Nonetheless, the patient also was known to have been diagnosed with COVID-19 pneumonia on 03/17/2020 and had subsequently been evaluated in the emergency department. She was apparently discharged home with prescriptions for azithromycin and other medications for symptomatic treatment. She returned with worsening shortness of breath and newly demonstrating supplemental oxygen requirement. 04/09: Remains intubated. Sedated with Precedex/Versed/fentanyl. On pressure control mode with peak and plateau pressures in the 40s. ABG this a.m.: 7.45/38/64. WBC 20.7>18.3. On Glucerna at 30 mL/h. Nurse reports she has had no bowel movement for several days. 04/10: No events reported overnight. Remains intubated. Still on Precedex/Cordelia sed/fentanyl for sedation. On pressure control ABG this a.m.: 7.38/57/80. WBC 18.317.3. On insulin infusion for glucose control. On Glucerna + Prosource. Creatinine 0.7. KUB obtained yesterday showed a gasless abdomen, incongruent with physical exam (possibly due to morbid obesity). Still no BM. 04/11: Had brisk diuresis with furosemide 40 mg IV single dose (2600 mL urine output), which resulted in a decrease in CVP. However, CVP is now back up to 910. On PRVC mode. ABG this a.m.: 7.46/46/53. Creatinine 0.6. WBC 17.3>11.4. Still no BM. On Versed/fentanyl/Precedex for sedation. Opens eyes to physical stimuli. Tube feeding currently on hold due to high residuals. Of note, even in the absence of tube feeding, the patient is having gastric residuals in the 200s. 04/12: No events reported overnight. Remains intubated. I/O- 6159 mL over the past 24 hours. DVT. On PRVC 22/450/100/12. ABG this a.m.: 7.50/42/59. On Versed/fentanyl/Precedex for sedation. She does demonstrate spontaneous eye opening. She does not follow commands. KUB yesterday demonstrates a paucity of bowel gas (but, no longer gasless). Creatinine 0.7. WBC 11.2. 04/13: No events reported overnight. Was switched to BiVENT/APRV yesterday (FiO2 80%, P high 17, T high 9.5 seconds, P low 3, T low 0.5 seconds). ABG this a.m.: 7.42/50/72. Off insulin infusion. Overnight, the patient had an episode of hypoglycemia (40) despite being on trickle tube feeds. WBC this morning 21.2. No fever. Today, the patient is much more awake. She bites down on the tube. Eyes remain open. Does not follow commands. Creatinine 0.7. 04/14: No events reported overnight. On BiVENT/APRV. Awake despite sedation with propofol/fentanyl. ABG this a.m. 7.43/43/65. Back on insulin infusion. Afebrile. WBC this morning 22. 12/6: No events reported overnight. On BiVENT/APRV. Appears to be overly se dated. ABG this a.m. 7., indeed compatible with oversedation. On and off insulin infusion. Glucose coming under better control. Afebrile. WBC 18.2. Blood cultures (04/13) isolated gram-positive cocci in clusters. Tracheal aspirate (04/13) isolated Staphylococcus aureus. 04/16: Seems to be awake but not oriented. Not answering questions. Still on bivent. Very difficult to adaquatley sedate. GPC seems to be MSSA. Final report pending. 04/17 GPC is MSSA sens to rocephin. Still unsure if it's a contaminate. No progress made on ventilator. Still 100% and PEEP 14. Review of systems relevant to events:: Pulmonary, neurologic. Reason for ICU Addmission:: acute respiratory failure, covid -19 pneumonia, intubated. - Medications: Medications reviewed and adjusted accordingly: Yes Vasopressors:: None Sedation:: Versed, fentanyl. Physical Exam Vital Signs: Temp Pulse Resp BP Pulse Ox 99.3 F 90 23 H 173/99 H 93 04/16/20 20:00 04/17/20 02:30 04/17/20 07:14 04/17/20 07:14 04/17/20 07:14 Intake & Output 04/16/20 04/17/20 04/18/20 06:59 06:59 06:59 Intake Total 1512 1578 0 Output Total 2540 1335 50 Balance -1028 243 -50 Weight 145.9 kg 145.9 kg Weight/Height Weight 145.9 kg Height 5 ft 3 in General appearance: PRESENT: no acute distress, morbidly obese Head exam: PRESENT: atraumatic, normocephalic Eye exam: PRESENT: conjunctiva pink, EOMI, PERRLA. ABSENT: scleral icterus Ear exam: PRESENT: normal external ear exam Respiratory exam: PRESENT: clear to auscultation reji. ABSENT: rales, rhonchi, wheezes Cardiovascular exam: PRESENT: RRR. ABSENT: diastolic murmur, rubs, systolic murmur GI/Abdominal exam: PRESENT: normal bowel sounds, soft. ABSENT: distended, guarding, mass, organolmegaly, rebound, tenderness Rectal exam: PRESENT: deferred Gentrourinary exam: PRESENT: indwelling catheter Extremities exam: PRESENT: full ROM. ABSENT: calf tenderness, clubbing, pedal edema Musculoskeletal exam: PRESENT: normal inspection Neurological exam: PRESENT: other - Sedated and got one dose of rocuronium overnight. Psychiatric exam: PRESENT: agitated - At times. Skin exam: PRESENT: dry, intact, warm. ABSENT: cyanosis, rash Tubes/Lines: PRESENT: Endotracheal Tube, Central Line, Nasogastic Tube Laboratory/Radiographs Laboratory Results: 04/17/20 03:30 04/17/20 03:30 04/16/20 04/16/20 04/16/20 08:30 08:30 08:30 WBC 22.8 H RBC 3.93 Hgb 9.1 L Hct 28.4 L MCV 72 L MCH 23.1 L MCHC 32.0 RDW 27.1 H Plt Count 181 Seg Neutrophils % Not Reportable Carbonic Acid HCO3/H2CO3 Ratio ABG pH ABG pCO2 ABG pO2 ABG HCO3 ABG O2 Saturation ABG Base Excess FiO2 Sodium 137.0 Potassium 4.4 Chloride 102 Carbon Dioxide 30 Anion Gap 5 BUN 33 H Creatinine 0.58 Est GFR ( Amer) > 60 Glucose 164 H Calcium 9.4 Phosphorus 3.3 Magnesium 1.9 Total Bilirubin 1.2 AST 41 H Alkaline Phosphatase 70 C-Reactive Protein Total Protein 6.0 L Albumin 2.8 L Prealbumin 12.0 L Triglycerides 188 H 04/16/20 04/17/20 04/17/20 10:10 03:30 03:30 WBC 19.5 H RBC 3.64 L Hgb 8.4 L Hct 26.9 L MCV 74 L MCH 22.9 L MCHC 31.1 L RDW 26.4 H Plt Count 165 Seg Neutrophils % 79.7 H Carbonic Acid 1.63 H HCO3/H2CO3 Ratio 18:1 ABG pH 7.35 ABG pCO2 54.3 H ABG pO2 85.6 ABG HCO3 29.6 H ABG O2 Saturation 95.9 ABG Base Excess 3.3 FiO2 95% Sodium 135.7 L Potassium 3.6 Chloride 102 Carbon Dioxide 31 H Anion Gap 3 L BUN 33 H Creatinine 0.59 Est GFR ( Amer) > 60 Glucose 83 Calcium 9.6 Phosphorus Magnesium Total Bilirubin AST Alkaline Phosphatase C-Reactive Protein 85.3 H Total Protein Albumin Prealbumin Triglycerides 04/17/20 03:30 WBC RBC Hgb Hct MCV MCH MCHC RDW Plt Count Seg Neutrophils % Carbonic Acid 1.67 H HCO3/H2CO3 Ratio 18:1 ABG pH 7.36 ABG pCO2 55.6 H ABG pO2 47.2 L ABG HCO3 30.8 H ABG O2 Saturation 80.7 L ABG Base Excess 4.4 FiO2 100% Sodium Potassium Chloride Carbon Dioxide Anion Gap BUN Creatinine Est GFR ( Amer) Glucose Calcium Phosphorus Magnesium Total Bilirubin AST Alkaline Phosphatase C-Reactive Protein Total Protein Albumin Prealbumin Triglycerides 04/13/20 14:53 Blood Blood Culture (PCR) - Final Staphylococcus Aureus 04/13/20 14:53 Blood Blood Culture - Final Staphylococcus Aureus 04/13/20 18:41 Blood Blood Culture (PCR) - Final Staphylococcus Species 03/21/20 04/11/20 04/14/20 21:58 03:05 01:59 Troponin I < 0.012 NT-Pro-B Natriuret Pep 192 H 184 H Impressions: Abdomen Ultrasound 04/10/20 00:00 IMPRESSION: NO EVIDENCE FOR ASCITES. KUB X-Ray 04/11/20 00:00 IMPRESSION: 1. Similar appearance of the abdomen with a relative paucity of bowel gas. 2. The tip of the enteric tube projects within the gastric lumen. Chest X-Ray 04/17/20 00:00 IMPRESSION: 1. Mild interval increase in diffuse bilateral interstitial and airspace opacities. All labs, radiographs, diagnostic studies and EKGs were personally reviewed: Yes In addition, reports of radiographic and diagnostic studies were read: Yes Assessment and Plan - Diagnosis (1) Pneumonia due to COVID-19 virus Is this a current diagnosis for this admission?: Yes Plan: She will likely need a trach and PEG. A PEEP level of 14 and 100% makes this somewhat not advisable. Her obese abdomen also presents complication risks for a PEG. Wean PEEP as possible. (2) Morbid obesity with BMI of 50.0-59.9, adult Is this a current diagnosis for this admission?: Yes Plan: A risk factor for COvid mortality. (3) Schizophrenia Qualifiers: Schizophrenia type: unspecified Qualified Code(s): F20.9 - Schizophrenia, unspecified Is this a current diagnosis for this admission?: Yes Plan: Baseline. Will need to assess if she survives. (4) Anemia Is this a current diagnosis for this admission?: Yes Plan: Level of Hgb 8.4. No need to transfuse. Plan Summary: Make small changes to vent if possible. Critical Time Critical Time (minutes): 35 Level of Care: ICU Anticipated discharge: SNF Anticipated DC Timeframe: Other -: 1. The care of a critical patient is a dynamic process. This note is a telephone claims representative synopsis but static in nature. The timeframe for treatments given in order is not necessarily the actual time these treatments may have been done. 2. This patient requires critical care secondary to ongoing requirements for therapy not offered or safe outside the critical care environment. Transfer to a lower level of care will result in altered life or limb morbidity and mortality. 3. Multidisciplinary rounds completed. 4. ABCDE bundle addressed.
[2020-04-17] MEDS: BUDESONIDE NEB 0.25 MG/2 ML AMPUL NEB SCH ×2 (08:34→21:30)
[2020-04-17] MEDS: DEXMEDETOMIDINE IN NS 400 MCG/100 ML RTUPB IV PRN ×3 (09:15→21:06)
[2020-04-17] MEDS ORDERED: SUCCINYLCHOLINE CHLORIDE INJ 200 MG/10 ML VIAL ONE (09:56)
[2020-04-17] MEDS ORDERED: ACETAMINOPHEN SUSP 160 MG/5 ML ORAL SYRING PO PRN (10:49)
[2020-04-17] MEDS: CHOLECALCIFEROL (D3) 1,000 UNIT (25 MCG) TABLET NG SCH (10:59)
[2020-04-17] MEDS: ZINC SULFATE 220 MG CAPSULE NG SCH (10:59)
[2020-04-17] MEDS: SENNOSIDES/DOCUSATE 8.6-50 MG 1 EACH TABLET NG SCH ×2 (10:59→18:35)
[2020-04-17] MEDS: FAMOTIDINE INJ/PF 20 MG/2 ML SDV IV SCH ×2 (10:59→21:11)
[2020-04-17] MEDS: METHYLPREDNISOLONE INJ 40 MG/1 ML SDV IV SCH (10:59)
[2020-04-17] MEDS: CEFTRIAXONE 1 GM/D5W RTU 1 GM/50 ML RTUPB IV SCH ×2 (10:59→21:11)
[2020-04-17] MEDS: ASCORBIC ACID 500 MG TABLET NG SCH ×2 (10:59→18:35)
[2020-04-17] MEDS: AMINO AC/PROTEIN HYDR/WHEY PRO 11 GM/45 ML PKT NG SCH ×4 (10:59→21:12)
[2020-04-18] MEDS: FENTANYL CITRATE/PF 600 MCG/60 ML BAG IV PRN ×7 (00:17→22:14)
[2020-04-18] MEDS: MIDAZOLAM HCL 50 MG/100 ML RTUINJ IV PRN ×7 (02:10→22:14)
[2020-04-18] MEDS: ALBUTEROL SULFATE 0.083% NEB 2.5 MG/3 ML AMPUL NEB SCH ×4 (02:13→20:55)
[2020-04-18] MEDS: DEXMEDETOMIDINE IN NS 400 MCG/100 ML RTUPB IV PRN ×3 (04:00→22:12)
[2020-04-18] MEDS: NORMAL SALINE 500 ML with ROCURONIUM BROMIDE 500 MG IV PRN ×6 (04:38→21:40)
[2020-04-18 05:21] LABS: ALBUMIN 2.6 g/dL (3.5-5.0); ALKALINE PHOSPHATASE 64 U/L (38-126); ANION GAP 6 (5-19); ARTERIAL BLOOD FIO2 80%; ARTERIAL BLOOD H2CO3 1.46 mmol/L (1.05-1.35); ARTERIAL BLOOD HCO3 26.7 mmol/L (20-24); ARTERIAL BLOOD O2 SATURATION 91.9 % (94-98); ARTERIAL BLOOD PCO2 48.5 mmHg (35-45); ARTERIAL BLOOD PH 7.36 (7.35-7.45); ARTERIAL BLOOD PO2 65.2 mmHg (80-100); ARTERIAL BLOOD TOTAL CO2 28.2 mmol/L (21-25); ASPARTATE AMINO TRANSFERASE 29 U/L (14-36); BILIRUBIN,DIRECT 0.6 mg/dL (0.0-0.4); BLOOD UREA NITROGEN 27 mg/dL (7-20); CALCIUM 9.3 mg/dL (8.4-10.2); CARBON DIOXIDE 28 mmol/L (22-30); CHLORIDE 107 mmol/L (98-107); GLUCOSE 142 mg/dL (75-110); PHOSPHORUS 3.1 mg/dL (2.5-4.5); POTASSIUM 3.8 mmol/L (3.6-5.0); TOTAL PROTEIN 5.7 g/dL (6.3-8.2)
[2020-04-18 05:22] LABS: HEMATOCRIT 23.3 % (36.0-47.0); MEAN CORPUSCULAR HEMOGLOBIN 23.3 pg (27.0-33.4); MEAN CORPUSCULAR HGB CONC 31.2 g/dL (32.0-36.0); MEAN CORPUSCULAR VOLUME 75 fl (80-97); PLATELET COUNT 141 10^3/uL (150-450); RED BLOOD COUNT 3.13 10^6/uL (3.72-5.28); RED CELL DISTRIBUTION WIDTH 27.5 % (11.5-14.0); WHITE BLOOD COUNT 15.9 10^3/uL (4.0-10.5)
[2020-04-18 05:54] LABS: ABSOLUTE LYMPHOCYTES# (MANUAL) 1.4 10^3/uL (0.5-4.7); ABSOLUTE MONOCYTES # (MANUAL) 0.5 10^3/uL (0.1-1.4); BAND NEUTROPHILS % (MANUAL) 1 % (3-5); BASOPHILS % (MANUAL) 0 % (0-2); EOSINOPHILS % (MANUAL) 2 % (0-6); LYMPHOCYTES % (MANUAL) 9 % (13-45); MONOCYTES % (MANUAL) 3 % (3-13); SEGMENTED NEUTROPHILS % (MAN) 85 % (42-78); TOTAL CELLS COUNTED 100
[2020-04-18 05:55] LABS: ANISOCYTOSIS 4+; PLATELET COMMENT DECREASED; POLYCHROMASIA SLIGHT
[2020-04-18 05:56] LABS: HEMOGLOBIN 7.3 g/dL (12.0-15.5)
[2020-04-18] MEDS ORDERED: NORMAL SALINE 250 ML IV PRN ×2 (06:25)
[2020-04-18] MEDS: HEPARIN SOD (PORCINE) 5,000 UNIT/ML 1 ML VIAL SUBCUT SCH ×3 (06:47→22:12)
[2020-04-18] MEDS: METOCLOPRAMIDE HCL INJ/PF 10 MG/2 ML SDV IV SCH ×3 (06:47→17:24)
[2020-04-18] MEDS: BUDESONIDE NEB 0.25 MG/2 ML AMPUL NEB SCH ×2 (08:39→20:55)
--- NOTE | 2020-04-18 08:50 | RADIOLOGY REPORT (SQ) ---
EXAM DESCRIPTION: CHEST SINGLE VIEW IMAGES COMPLETED DATE/TIME: 04/18/2020 6:41 am REASON FOR STUDY: covid COMPARISON: 04/17/2020 EXAM PARAMETERS: NUMBER OF VIEWS: One view. TECHNIQUE: Single frontal radiographic view of the chest acquired. RADIATION DOSE: NA LIMITATIONS: None. FINDINGS: LUNGS AND PLEURA: Improved aeration with the diffuse bilateral interstitial opacities from prior. No new focal consolidation. No pleural effusion or pneumothorax. MEDIASTINUM AND HILAR STRUCTURES: No masses. Contour normal. HEART AND VASCULAR STRUCTURES: Stable. BONES: No acute findings. HARDWARE: Endotracheal tube tip overlies midthoracic trachea. Enteric tube tip below diaphragm but e xcluded by collimation. Left internal jugular central venous catheter tip overlies SVC. OTHER: No other significant finding. IMPRESSION: Improved but persistent diffuse bilateral interstitial opacities. Stable support lines and tubes as above. TECHNICAL DOCUMENTATION: JOB ID: [id number] 2010 [employer]- All Rights Reserved Reading location - IP/workstation name: [email or web address]
[2020-04-18] MEDS: AMINO AC/PROTEIN HYDR/WHEY PRO 11 GM/45 ML PKT NG SCH ×4 (09:28→22:15)
[2020-04-18] MEDS: METHYLPREDNISOLONE INJ 40 MG/1 ML SDV IV SCH (09:28)
[2020-04-18] MEDS: ASCORBIC ACID 500 MG TABLET NG SCH ×2 (09:28→17:24)
[2020-04-18] MEDS: CHOLECALCIFEROL (D3) 1,000 UNIT (25 MCG) TABLET NG SCH (09:28)
[2020-04-18] MEDS: FAMOTIDINE INJ/PF 20 MG/2 ML SDV IV SCH ×2 (09:28→22:12)
[2020-04-18] MEDS: SENNOSIDES/DOCUSATE 8.6-50 MG 1 EACH TABLET NG SCH ×2 (09:28→17:24)
[2020-04-18] MEDS: ZINC SULFATE 220 MG CAPSULE NG SCH (09:28)
[2020-04-18] MEDS: CEFTRIAXONE 1 GM/D5W RTU 1 GM/50 ML RTUPB IV SCH ×2 (09:29→22:14)
--- NOTE | 2020-04-18 11:21 | PDOC CRITICAL CARE PROG REPORT ---
General Date:: 04/18/20 ICU Day:: 18 Ventilator Day:: 18 Hospital Day:: 27 Resuscitation Status: Full Code Events in the past 12 to 24 Hours:: This 44-year-old -[place] female presented to [facility] emergency department on 03/21/2020 with complaints of possible presyncope versus syncope in addition to fever, chills, productive cough, dyspnea and exertional dyspnea. She has a history of psychiatric disorders and is known to be a difficult historian. Nonetheless, the patient also was known to have been diagnosed with COVID-19 pneumonia on 03/17/2020 and had subsequently been evaluated in the emergency department. She was apparently discharged home with prescriptions for azithromycin and other medications for symptomatic treatment. She returned with worsening shortness of breath and newly demonstrating supplemental oxygen requirement. 04/09: Remains intubated. Sedated with Precedex/Versed/fentanyl. On pressure control mode with peak and plateau pressures in the 40s. ABG this a.m.: 7.45/38/64. WBC 20.7>18.3. On Glucerna at 30 mL/h. Nurse reports she has had no bowel movement for several days. 04/10: No events reported overnight. Remains intubated. Still on Precedex/Cordelia sed/fentanyl for sedation. On pressure control ABG this a.m.: 7.38/57/80. WBC 18.317.3. On insulin infusion for glucose control. On Glucerna + Prosource. Creatinine 0.7. KUB obtained yesterday showed a gasless abdomen, incongruent with physical exam (possibly due to morbid obesity). Still no BM. 04/11: Had brisk diuresis with furosemide 40 mg IV single dose (2600 mL urine output), which resulted in a decrease in CVP. However, CVP is now back up to 910. On PRVC mode. ABG this a.m.: 7.46/46/53. Creatinine 0.6. WBC 17.3>11.4. Still no BM. On Versed/fentanyl/Precedex for sedation. Opens eyes to physical stimuli. Tube feeding currently on hold due to high residuals. Of note, even in the absence of tube feeding, the patient is having gastric residuals in the 200s. 04/12: No events reported overnight. Remains intubated. I/O- 6159 mL over the past 24 hours. DVT. On PRVC 22/450/100/12. ABG this a.m.: 7.50/42/59. On Versed/fentanyl/Precedex for sedation. She does demonstrate spontaneous eye opening. She does not follow commands. KUB yesterday demonstrates a paucity of bowel gas (but, no longer gasless). Creatinine 0.7. WBC 11.2. 04/13: No events reported overnight. Was switched to BiVENT/APRV yesterday (FiO2 80%, P high 17, T high 9.5 seconds, P low 3, T low 0.5 seconds). ABG this a.m.: 7.42/50/72. Off insulin infusion. Overnight, the patient had an episode of hypoglycemia (40) despite being on trickle tube feeds. WBC this morning 21.2. No fever. Today, the patient is much more awake. She bites down on the tube. Eyes remain open. Does not follow commands. Creatinine 0.7. 04/14: No events reported overnight. On BiVENT/APRV. Awake despite sedation with propofol/fentanyl. ABG this a.m. 7.43/43/65. Back on insulin infusion. Afebrile. WBC this morning 22. 12/6: No events reported overnight. On BiVENT/APRV. Appears to be overly se dated. ABG this a.m. 7., indeed compatible with oversedation. On and off insulin infusion. Glucose coming under better control. Afebrile. WBC 18.2. Blood cultures (04/13) isolated gram-positive cocci in clusters. Tracheal aspirate (04/13) isolated Staphylococcus aureus. 04/16: Seems to be awake but not oriented. Not answering questions. Still on bivent. Very difficult to adaquatley sedate. GPC seems to be MSSA. Final report pending. 04/17 GPC is MSSA sens to rocephin. Still unsure if it's a contaminate. No progress made on ventilator. Still 100% and PEEP 14. 04/18: CXR looks better. Will try weaning today. FiO2 first. Review of systems relevant to events:: Pulmonary, neurological. Reason for ICU Addmission:: acute respiratory failure, covid -19 pneumonia, intubated. - Medications: Medications reviewed and adjusted accordingly: Yes Vasopressors:: Levophed Sedation:: Versed, fentanyl, precedex. Physical Exam Vital Signs: Temp Pulse Resp BP Pulse Ox 97.8 F 76 22 H 111/75 92 04/18/20 10:50 04/18/20 10:50 04/18/20 10:50 04/18/20 10:50 04/18/20 10:50 Intake & Output 04/17/20 04/18/20 04/19/20 06:59 06:59 06:59 Intake Total 1578 2855 545 Output Total 1335 2895 330 Balance 243 -40 215 Weight 145.9 kg 146.9 kg Weight/Height Weight 146.9 kg Height 5 ft 3 in General appearance: PRESENT: morbidly obese Head exam: PRESENT: atraumatic, normocephalic Eye exam: PRESENT: conjunctiva pink, EOMI, PERRLA. ABSENT: scleral icterus Ear exam: PRESENT: normal external ear exam Mouth exam: PRESENT: moist, tongue midline Respiratory exam: PRESENT: clear to auscultation reji, decreased breath sounds. ABSENT: rales, rhonchi, wheezes Cardiovascular exam: PRESENT: RRR. ABSENT: diastolic murmur, rubs, systolic murmur GI/Abdominal exam: PRESENT: normal bowel sounds, soft. ABSENT: distended, guarding, mass, organolmegaly, rebound, tenderness Rectal exam: PRESENT: deferred Gentrourinary exam: PRESENT: indwelling catheter Extremities exam: PRESENT: full ROM. ABSENT: calf tenderness, clubbing, pedal edema Musculoskeletal exam: PRESENT: normal inspection Neurological exam: PRESENT: other - Heaily sedated and has rocurinium. Skin exam: PRESENT: dry, intact, warm. ABSENT: cyanosis, rash Tubes/Lines: PRESENT: Endotracheal Tube, Central Line, Nasogastic Tube Laboratory/Radiographs Laboratory Results: 04/18/20 04:20 04/18/20 04:20 04/18/20 04/18/20 04/18/20 04:20 04:20 04:20 WBC 15.9 H RBC 3.13 L Hgb 7.3 L Hct 23.3 L MCV 75 L MCH 23.3 L MCHC 31.2 L RDW 27.5 H Plt Count 141 L Seg Neutrophils % Not Reportable Carbonic Acid 1.46 H HCO3/H2CO3 Ratio 18:1 ABG pH 7.36 ABG pCO2 48.5 H ABG pO2 65.2 L ABG HCO3 26.7 H ABG O2 Saturation 91.9 L ABG Base Excess 1.0 FiO2 80% Sodium 140.9 Potassium 3.8 Chloride 107 Carbon Dioxide 28 Anion Gap 6 BUN 27 H Creatinine 0.70 Est GFR ( Amer) > 60 Glucose 142 H Calcium 9.3 Phosphorus 3.1 Magnesium 1.9 Total Bilirubin 1.0 AST 29 Alkaline Phosphatase 64 Total Protein 5.7 L Albumin 2.6 L Blood Type Antibody Screen 04/18/20 06:42 WBC RBC Hgb Hct MCV MCH MCHC RDW Plt Count Seg Neutrophils % Carbonic Acid HCO3/H2CO3 Ratio ABG pH ABG pCO2 ABG pO2 ABG HCO3 ABG O2 Saturation ABG Base Excess FiO2 Sodium Potassium Chloride Carbon Dioxide Anion Gap BUN Creatinine Est GFR ( Amer) Glucose Calcium Phosphorus Magnesium Total Bilirubin AST Alkaline Phosphatase Total Protein Albumin Blood Type O POSITIVE Antibody Screen NEGATIVE 04/13/20 18:41 Blood Blood Culture (PCR) - Final Staphylococcus Species 04/13/20 18:41 Blood Blood Culture - Final Staphylococcus Aureus Staphylococcus Capitis 03/21/20 04/11/20 04/14/20 21:58 03:05 01:59 Troponin I < 0.012 NT-Pro-B Natriuret Pep 192 H 184 H Impressions: Abdomen Ultrasound 04/10/20 00:00 IMPRESSION: NO EVIDENCE FOR ASCITES. KUB X-Ray 04/11/20 00:00 IMPRESSION: 1. Similar appearance of the abdomen with a relative paucity of bowel gas. 2. The tip of the enteric tube projects within the gastric lumen. Chest X-Ray 04/18/20 05:00 IMPRESSION: Improved but persistent diffuse bilateral interstitial opacities. Stable support lines and tubes as above. All labs, radiographs, diagnostic studies and EKGs were personally reviewed: Yes In addition, reports of radiographic and diagnostic studies were read: Yes Assessment and Plan - Diagnosis (1) Pneumonia due to COVID-19 virus Is this a current diagnosis for this admission?: Yes Plan: Although CXR looks much better she still requires quite a bit of vent support. Will try to wean Fio2 today. (2) Morbid obesity with BMI of 50.0-59.9, adult Is this a current diagnosis for this admission?: Yes Plan: Risk factor for Covid mortality and an impediment to normal lung excursion. (3) Schizophrenia Qualifiers: Schizophrenia type: unspecified Qualified Code(s): F20.9 - Schizophrenia, unspecified Is this a current diagnosis for this admission?: Yes Plan: Need to assess if she survives. (4) Anemia Is this a current diagnosis for this admission?: Yes Plan: Receiving 1 uni of PRBCs for a Hgb of 7.3. Plan Summary: Minor weaning changes to FiO2 if possible. Critical Time Critical Time (minutes): 35 Level of Care: ICU Anticipated discharge: SNF Anticipated DC Timeframe: Other -: 1. The care of a critical patient is a dynamic process. This note is a fraud representative synopsis but static in nature. The timeframe for treatments given in order is not necessarily the actual time these treatments may have been done. 2. This patient requires critical care secondary to ongoing requirements for therapy not offered or safe outside the critical care environment. Transfer to a lower level of care will result in altered life or limb morbidity and mortality. 3. Multidisciplinary rounds completed. 4. ABCDE bundle addressed.
[2020-04-18 13:52] LABS: HEMATOCRIT 28.5 % (36.0-47.0); HEMOGLOBIN 8.9 g/dL (12.0-15.5); MEAN CORPUSCULAR HGB CONC 31.3 g/dL (32.0-36.0); MEAN CORPUSCULAR VOLUME 77 fl (80-97); PLATELET COUNT 174 10^3/uL (150-450); RED BLOOD COUNT 3.72 10^6/uL (3.72-5.28); RED CELL DISTRIBUTION WIDTH 26.9 % (11.5-14.0); WHITE BLOOD COUNT 18.7 10^3/uL (4.0-10.5)
[2020-04-18 14:17] LABS: ABSOLUTE MONOCYTES # (MANUAL) 0.2 10^3/uL (0.1-1.4); BAND NEUTROPHILS % (MANUAL) 2 % (3-5); BASOPHILS % (MANUAL) 0 % (0-2); EOSINOPHILS % (MANUAL) 0 % (0-6); LYMPHOCYTES % (MANUAL) 0 % (13-45); MONOCYTES % (MANUAL) 1 % (3-13); SEGMENTED NEUTROPHILS % (MAN) 97 % (42-78); TOTAL CELLS COUNTED 100
[2020-04-18 14:18] LABS: ANISOCYTOSIS 2+; HYPOCHROMASIA 1+; POIKILOCYTOSIS SLIGHT; POLYCHROMASIA SLIGHT
[2020-04-18 14:19] LABS: PLATELET COMMENT ADEQUATE; TARGET CELLS SLIGHT
[2020-04-18] MEDS: POLYETHYLENE GLYCOL 3350 POWDER 17 GM/1 PACKET NG PRN (17:24)
[2020-04-18] MEDS: NORMAL SALINE 100 ML with INSULIN REGULAR, HUMAN 100 UNIT IV PRN ×2 (21:05)
[2020-04-19] MEDS: METOCLOPRAMIDE HCL INJ/PF 10 MG/2 ML SDV IV SCH ×4 (00:30→17:22)
[2020-04-19] MEDS: MIDAZOLAM HCL 50 MG/100 ML RTUINJ IV PRN ×8 (00:44→21:45)
[2020-04-19] MEDS: FENTANYL CITRATE/PF 600 MCG/60 ML BAG IV PRN ×8 (02:07→21:44)
[2020-04-19] MEDS: ALBUTEROL SULFATE 0.083% NEB 2.5 MG/3 ML AMPUL NEB SCH ×4 (02:38→20:50)
[2020-04-19] MEDS: DEXMEDETOMIDINE IN NS 400 MCG/100 ML RTUPB IV PRN ×3 (04:19→18:00)
[2020-04-19 04:54] LABS: ARTERIAL BLOOD FIO2 85%; ARTERIAL BLOOD H2CO3 1.51 mmol/L (1.05-1.35); ARTERIAL BLOOD O2 SATURATION 93.5 % (94-98); ARTERIAL BLOOD PCO2 50.1 mmHg (35-45); ARTERIAL BLOOD PH 7.35 (7.35-7.45); ARTERIAL BLOOD PO2 71.5 mmHg (80-100); ARTERIAL BLOOD TOTAL CO2 28.6 mmol/L (21-25); HEMATOCRIT 25.8 % (36.0-47.0); HEMOGLOBIN 8.4 g/dL (12.0-15.5); MEAN CORPUSCULAR HEMOGLOBIN 24.7 pg (27.0-33.4); MEAN CORPUSCULAR HGB CONC 32.4 g/dL (32.0-36.0); MEAN CORPUSCULAR VOLUME 76 fl (80-97); RED BLOOD COUNT 3.39 10^6/uL (3.72-5.28); RED CELL DISTRIBUTION WIDTH 26.5 % (11.5-14.0); WHITE BLOOD COUNT 9.8 10^3/uL (4.0-10.5)
[2020-04-19] MEDS: NORMAL SALINE 500 ML with ROCURONIUM BROMIDE 500 MG IV PRN ×6 (05:00→21:45)
[2020-04-19 05:07] LABS: ALBUMIN 2.6 g/dL (3.5-5.0); ALKALINE PHOSPHATASE 66 U/L (38-126); ASPARTATE AMINO TRANSFERASE 35 U/L (14-36); BILIRUBIN,DIRECT 0.4 mg/dL (0.0-0.4); BILIRUBIN,TOTAL 0.8 mg/dL (0.2-1.3); BLOOD UREA NITROGEN 21 mg/dL (7-20); C-REACTIVE PROTEIN 77.3 mg/L (<10.0); CALCIUM 9.4 mg/dL (8.4-10.2); GLUCOSE 120 mg/dL (75-110); PHOSPHORUS 3.2 mg/dL (2.5-4.5); TOTAL PROTEIN 5.8 g/dL (6.3-8.2)
[2020-04-19 05:10] LABS: CARBON DIOXIDE 29 mmol/L (22-30); CHLORIDE 111 mmol/L (98-107)
[2020-04-19 05:12] LABS: ANION GAP 4 (5-19)
[2020-04-19 05:15] LABS: ABSOLUTE LYMPHOCYTES# (MANUAL) 0.7 10^3/uL (0.5-4.7); ABSOLUTE MONOCYTES # (MANUAL) 0.5 10^3/uL (0.1-1.4); BASOPHILS % (MANUAL) 0 % (0-2); EOSINOPHILS % (MANUAL) 1 % (0-6); LYMPHOCYTES % (MANUAL) 7 % (13-45); MONOCYTES % (MANUAL) 5 % (3-13); SEGMENTED NEUTROPHILS % (MAN) 87 % (42-78); TOTAL CELLS COUNTED 100
[2020-04-19 05:17] LABS: ANISOCYTOSIS 2+; HYPOCHROMASIA 1+; PLATELET COMMENT ADEQUATE; POIKILOCYTOSIS 1+; POLYCHROMASIA SLIGHT; SCHISTOCYTES SLIGHT; STOMATOCYTES SLIGHT; TARGET CELLS SLIGHT; TEAR DROP CELLS SLIGHT
[2020-04-19 05:19] LABS: PLATELET CLUMPS PRESENT; PLATELET COUNT 169 10^3/uL (150-450)
[2020-04-19] MEDS: HEPARIN SOD (PORCINE) 5,000 UNIT/ML 1 ML VIAL SUBCUT SCH ×3 (06:20→21:46)
[2020-04-19] MEDS: BUDESONIDE NEB 0.25 MG/2 ML AMPUL NEB SCH ×2 (08:13→20:50)
--- NOTE | 2020-04-19 08:18 | PDOC CRITICAL CARE PROG REPORT ---
General Date:: 04/19/20 ICU Day:: 18 Ventilator Day:: 18 Hospital Day:: 28 Resuscitation Status: Full Code Events in the past 12 to 24 Hours:: This 44-year-old -[place] female presented to [facility] emergency department on 03/21/2020 with complaints of possible presyncope versus syncope in addition to fever, chills, productive cough, dyspnea and exertional dyspnea. She has a history of psychiatric disorders and is known to be a difficult historian. Nonetheless, the patient also was known to have been diagnosed with COVID-19 pneumonia on 03/17/2020 and had subsequently been evaluated in the emergency department. She was apparently discharged home with prescriptions for azithromycin and other medications for symptomatic treatment. She returned with worsening shortness of breath and newly demonstrating supplemental oxygen requirement. 04/09: Remains intubated. Sedated with Precedex/Versed/fentanyl. On pressure control mode with peak and plateau pressures in the 40s. ABG this a.m.: 7.45/38/64. WBC 20.7>18.3. On Glucerna at 30 mL/h. Nurse reports she has had no bowel movement for several days. 04/10: No events reported overnight. Remains intubated. Still on Precedex/Cordelia sed/fentanyl for sedation. On pressure control ABG this a.m.: 7.38/57/80. WBC 18.317.3. On insulin infusion for glucose control. On Glucerna + Prosource. Creatinine 0.7. KUB obtained yesterday showed a gasless abdomen, incongruent with physical exam (possibly due to morbid obesity). Still no BM. 04/11: Had brisk diuresis with furosemide 40 mg IV single dose (2600 mL urine output), which resulted in a decrease in CVP. However, CVP is now back up to 910. On PRVC mode. ABG this a.m.: 7.46/46/53. Creatinine 0.6. WBC 17.3>11.4. Still no BM. On Versed/fentanyl/Precedex for sedation. Opens eyes to physical stimuli. Tube feeding currently on hold due to high residuals. Of note, even in the absence of tube feeding, the patient is having gastric residuals in the 200s. 04/12: No events reported overnight. Remains intubated. I/O- 6159 mL over the past 24 hours. DVT. On PRVC 22/450/100/12. ABG this a.m.: 7.50/42/59. On Versed/fentanyl/Precedex for sedation. She does demonstrate spontaneous eye opening. She does not follow commands. KUB yesterday demonstrates a paucity of bowel gas (but, no longer gasless). Creatinine 0.7. WBC 11.2. 04/13: No events reported overnight. Was switched to BiVENT/APRV yesterday (FiO2 80%, P high 17, T high 9.5 seconds, P low 3, T low 0.5 seconds). ABG this a.m.: 7.42/50/72. Off insulin infusion. Overnight, the patient had an episode of hypoglycemia (40) despite being on trickle tube feeds. WBC this morning 21.2. No fever. Today, the patient is much more awake. She bites down on the tube. Eyes remain open. Does not follow commands. Creatinine 0.7. 04/14: No events reported overnight. On BiVENT/APRV. Awake despite sedation with propofol/fentanyl. ABG this a.m. 7.43/43/65. Back on insulin infusion. Afebrile. WBC this morning 22. 12/6: No events reported overnight. On BiVENT/APRV. Appears to be overly se dated. ABG this a.m. 7., indeed compatible with oversedation. On and off insulin infusion. Glucose coming under better control. Afebrile. WBC 18.2. Blood cultures (04/13) isolated gram-positive cocci in clusters. Tracheal aspirate (04/13) isolated Staphylococcus aureus. 04/16: Seems to be awake but not oriented. Not answering questions. Still on bivent. Very difficult to adaquatley sedate. GPC seems to be MSSA. Final report pending. 04/17 GPC is MSSA sens to rocephin. Still unsure if it's a contaminate. No progress made on ventilator. Still 100% and PEEP 14. 04/18: CXR looks better. Will try weaning today. FiO2 first. 04/19: Not able to wean yesterday. O2 saturations 95-96%. Will wean PEEP. Down to 10 in effort to lower PEEP for trach which I believe she will need. No weaning on drips yet. Review of systems relevant to events:: Pulmonary, Neurologic. Reason for ICU Addmission:: acute respiratory failure, covid -19 pneumonia, intubated. - Medications: Medications reviewed and adjusted accordingly: Yes Vasopressors:: Levophed. Sedation:: Precedex, fentanyl, versed. Physical Exam Vital Signs: Temp Pulse Resp BP Pulse Ox 96.0 F L 61 22 H 94/71 L 93 04/19/20 06:00 04/19/20 07:00 04/19/20 07:35 04/19/20 07:35 04/19/20 07:35 Intake & Output 04/18/20 04/19/20 04/20/20 06:59 06:59 06:59 Intake Total 2855 3253 Output Total 2895 7135 Balance -40 778 Weight 146.9 kg 148.9 kg Weight/Height Weight 148.9 kg Height 5 ft 3 in General appearance: PRESENT: no acute distress, morbidly obese Head exam: PRESENT: atraumatic, normocephalic Eye exam: PRESENT: conjunctiva pink, PERRLA, other - Conjugate.. ABSENT: scleral icterus Ear exam: PRESENT: normal external ear exam Mouth exam: PRESENT: moist, tongue midline Respiratory exam: PRESENT: clear to auscultation reji, decreased breath sounds. ABSENT: rales, rhonchi, wheezes Cardiovascular exam: PRESENT: RRR. ABSENT: diastolic murmur, rubs, systolic murmur GI/Abdominal exam: PRESENT: normal bowel sounds, soft. ABSENT: distended, guarding, mass, organolmegaly, rebound, tenderness Rectal exam: PRESENT: deferred Gentrourinary exam: PRESENT: indwelling catheter Extremities exam: PRESENT: full ROM. ABSENT: calf tenderness, clubbing, pedal edema Neurological exam: PRESENT: other - Heavily sedated and on rocuronium. Skin exam: PRESENT: dry, intact, warm. ABSENT: cyanosis, rash Tubes/Lines: PRESENT: Endotracheal Tube, Central Line, Nasogastic Tube Laboratory/Radiographs Laboratory Results: 04/19/20 04:15 04/19/20 04:15 04/18/20 04/18/20 04/19/20 06:42 13:10 04:15 WBC 18.7 H RBC 3.72 Hgb 8.9 L Hct 28.5 L MCV 77 L MCH 24.0 L MCHC 31.3 L RDW 26.9 H Plt Count 174 Seg Neutrophils % Not Reportable Carbonic Acid HCO3/H2CO3 Ratio ABG pH ABG pCO2 ABG pO2 ABG HCO3 ABG O2 Saturation ABG Base Excess FiO2 Sodium Potassium Chloride Carbon Dioxide Anion Gap BUN Creatinine Est GFR ( Amer) Glucose Calcium Phosphorus Magnesium Total Bilirubin AST Alkaline Phosphatase C-Reactive Protein Total Protein Albumin Triglycerides 169 H Blood Type O POSITIVE Antibody Screen NEGATIVE 04/19/20 04/19/20 04/19/20 04:15 04:15 04:15 WBC 9.8 RBC 3.39 L Hgb 8.4 L Hct 25.8 L MCV 76 L MCH 24.7 L MCHC 32.4 RDW 26.5 H Plt Count 169 Seg Neutrophils % Not Reportable Carbonic Acid 1.51 H HCO3/H2CO3 Ratio 17:1 ABG pH 7.35 ABG pCO2 50.1 H ABG pO2 71.5 L ABG HCO3 27.0 H ABG O2 Saturation 93.5 L ABG Base Excess 1.0 FiO2 85% Sodium 144.0 Potassium 4.0 Chloride 111 H Carbon Dioxide 29 Anion Gap 4 L BUN 21 H Creatinine 0.55 Est GFR ( Amer) > 60 Glucose 120 H Calcium 9.4 Phosphorus 3.2 Magnesium 1.9 Total Bilirubin 0.8 AST 35 Alkaline Phosphatase 66 C-Reactive Protein 77.3 H Total Protein 5.8 L Albumin 2.6 L Triglycerides Blood Type Antibody Screen 03/21/20 04/11/20 04/14/20 21:58 03:05 01:59 Troponin I < 0.012 NT-Pro-B Natriuret Pep 192 H 184 H Impressions: Abdomen Ultrasound 04/10/20 00:00 IMPRESSION: NO EVIDENCE FOR ASCITES. KUB X-Ray 04/11/20 00:00 IMPRESSION: 1. Similar appearance of the abdomen with a relative paucity of bowel gas. 2. The tip of the enteric tube projects within the gastric lumen. Chest X-Ray 04/18/20 05:00 IMPRESSION: Improved but persistent diffuse bilateral interstitial opacities. Stable support lines and tubes as above. All labs, radiographs, diagnostic studies and EKGs were personally reviewed: Yes In addition, reports of radiographic and diagnostic studies were read: Yes Assessment and Plan - Diagnosis (1) Pneumonia due to COVID-19 virus Is this a current diagnosis for this admission?: Yes Plan: It appears we may be able to make weaning changes to PEEP. Will likely need trach and PEG. (2) Morbid obesity with BMI of 50.0-59.9, adult Is this a current diagnosis for this admission?: Yes Plan: Unchanged (3) Schizophrenia Qualifiers: Schizophrenia type: unspecified Qualified Code(s): F20.9 - Schizophrenia, unspecified Is this a current diagnosis for this admission?: Yes Plan: Chronic (4) Anemia Is this a current diagnosis for this admission?: Yes Plan: Hgb level 8.4. No transfusion. Plan Summary: Try to decrease PEEP to 10 and perhaps FiO2. Critical Time Critical Time (minutes): 35 Level of Care: ICU Anticipated discharge: SNF Anticipated DC Timeframe: Other -: 1. The care of a critical patient is a dynamic process. This note is a counter sales representative synopsis but static in nature. The timeframe for treatments given in order is not necessarily the actual time these treatments may have been done. 2. This patient requires critical care secondary to ongoing requirements for therapy not offered or safe outside the critical care environment. Transfer to a lower level of care will result in altered life or limb morbidity and mortality. 3. Multidisciplinary rounds completed. 4. ABCDE bundle addressed.
[2020-04-19] MEDS: FAMOTIDINE INJ/PF 20 MG/2 ML SDV IV SCH ×2 (09:14→21:46)
[2020-04-19] MEDS: CEFTRIAXONE 1 GM/D5W RTU 1 GM/50 ML RTUPB IV SCH ×2 (09:14→21:46)
[2020-04-19] MEDS: METHYLPREDNISOLONE INJ 40 MG/1 ML SDV IV SCH (09:15)
[2020-04-19] MEDS: ZINC SULFATE 220 MG CAPSULE NG SCH (09:18)
[2020-04-19] MEDS: ASCORBIC ACID 500 MG TABLET NG SCH ×2 (09:18→17:21)
[2020-04-19] MEDS: SENNOSIDES/DOCUSATE 8.6-50 MG 1 EACH TABLET NG SCH ×2 (09:18→17:21)
[2020-04-19] MEDS: CHOLECALCIFEROL (D3) 1,000 UNIT (25 MCG) TABLET NG SCH (09:18)
[2020-04-19] MEDS: AMINO AC/PROTEIN HYDR/WHEY PRO 11 GM/45 ML PKT NG SCH ×4 (12:04→21:47)
[2020-04-20] MEDS: FENTANYL CITRATE/PF 600 MCG/60 ML BAG IV PRN ×8 (00:41→23:31)
[2020-04-20] MEDS: MIDAZOLAM HCL 50 MG/100 ML RTUINJ IV PRN ×8 (00:42→22:06)
[2020-04-20] MEDS: DEXMEDETOMIDINE IN NS 400 MCG/100 ML RTUPB IV PRN ×4 (00:42→19:51)
[2020-04-20] MEDS: METOCLOPRAMIDE HCL INJ/PF 10 MG/2 ML SDV IV SCH ×5 (00:43→23:49)
[2020-04-20] MEDS: ALBUTEROL SULFATE 0.083% NEB 2.5 MG/3 ML AMPUL NEB SCH ×4 (02:39→20:57)
[2020-04-20 05:03] LABS: ARTERIAL BLOOD BASE EXCESS -0.8 mmol/L; ARTERIAL BLOOD FIO2 100%; ARTERIAL BLOOD H2CO3 1.46 mmol/L (1.05-1.35); ARTERIAL BLOOD HCO3 25.2 mmol/L (20-24); ARTERIAL BLOOD O2 SATURATION 89.2 % (94-98); ARTERIAL BLOOD PCO2 48.6 mmHg (35-45); ARTERIAL BLOOD PH 7.33 (7.35-7.45); ARTERIAL BLOOD PO2 60.2 mmHg (80-100); ARTERIAL BLOOD TOTAL CO2 26.7 mmol/L (21-25)
[2020-04-20 05:08] LABS: HEMATOCRIT 25.7 % (36.0-47.0); MEAN CORPUSCULAR HEMOGLOBIN 23.9 pg (27.0-33.4); MEAN CORPUSCULAR VOLUME 77 fl (80-97); PLATELET COUNT 179 10^3/uL (150-450); RED BLOOD COUNT 3.34 10^6/uL (3.72-5.28); RED CELL DISTRIBUTION WIDTH 26.3 % (11.5-14.0); WHITE BLOOD COUNT 10.4 10^3/uL (4.0-10.5)
[2020-04-20 05:21] LABS: ALBUMIN 2.5 g/dL (3.5-5.0); ALKALINE PHOSPHATASE 68 U/L (38-126); ASPARTATE AMINO TRANSFERASE 36 U/L (14-36); BILIRUBIN,DIRECT 0.3 mg/dL (0.0-0.4); BILIRUBIN,TOTAL 0.6 mg/dL (0.2-1.3); BLOOD UREA NITROGEN 22 mg/dL (7-20); CALCIUM 9.4 mg/dL (8.4-10.2); CARBON DIOXIDE 29 mmol/L (22-30); CHLORIDE 113 mmol/L (98-107); GLUCOSE 99 mg/dL (75-110); PHOSPHORUS 3.1 mg/dL (2.5-4.5); POTASSIUM 3.8 mmol/L (3.6-5.0); TOTAL PROTEIN 5.6 g/dL (6.3-8.2)
[2020-04-20] MEDS: HEPARIN SOD (PORCINE) 5,000 UNIT/ML 1 ML VIAL SUBCUT SCH ×3 (05:23→21:58)
[2020-04-20 05:29] LABS: ABSOLUTE LYMPHOCYTES# (MANUAL) 0.9 10^3/uL (0.5-4.7); ABSOLUTE MONOCYTES # (MANUAL) 0.4 10^3/uL (0.1-1.4); ANISOCYTOSIS 3+; BAND NEUTROPHILS % (MANUAL) 1 % (3-5); BASOPHILS % (MANUAL) 0 % (0-2); EOSINOPHILS % (MANUAL) 5 % (0-6); LYMPHOCYTES % (MANUAL) 9 % (13-45); MONOCYTES % (MANUAL) 4 % (3-13); NUCLEATED RED BLOOD CELLS 2 /100 WBC (0); SEGMENTED NEUTROPHILS % (MAN) 81 % (42-78); TOTAL CELLS COUNTED 100
[2020-04-20 05:30] LABS: PLATELET COMMENT ADEQUATE
[2020-04-20 05:35] LABS: ANION GAP 2 (5-19)
[2020-04-20] MEDS: NORMAL SALINE 100 ML with INSULIN REGULAR, HUMAN 100 UNIT IV PRN ×2 (06:16)
[2020-04-20] MEDS: NORMAL SALINE 500 ML with ROCURONIUM BROMIDE 500 MG IV PRN ×4 (06:17→15:33)
[2020-04-20] MEDS: BUDESONIDE NEB 0.25 MG/2 ML AMPUL NEB SCH ×2 (08:09→20:57)
[2020-04-20] MEDS: CEFTRIAXONE 1 GM/D5W RTU 1 GM/50 ML RTUPB IV SCH ×2 (09:02→21:58)
--- NOTE | 2020-04-20 09:05 | PDOC CRITICAL CARE PROG REPORT ---
General Date:: 04/20/20 ICU Day:: 19 Ventilator Day:: 19 Hospital Day:: 29 Resuscitation Status: Full Code Events in the past 12 to 24 Hours:: This 44-year-old -[place] female presented to [facility] emergency department on 03/21/2020 with complaints of possible presyncope versus syncope in addition to fever, chills, productive cough, dyspnea and exertional dyspnea. She has a history of psychiatric disorders and is known to be a difficult historian. Nonetheless, the patient also was known to have been diagnosed with COVID-19 pneumonia on 03/17/2020 and had subsequently been evaluated in the emergency department. She was apparently discharged home with prescriptions for azithromycin and other medications for symptomatic treatment. She returned with worsening shortness of breath and newly demonstrating supplemental oxygen requirement. 04/09: Remains intubated. Sedated with Precedex/Versed/fentanyl. On pressure control mode with peak and plateau pressures in the 40s. ABG this a.m.: 7.45/38/64. WBC 20.7>18.3. On Glucerna at 30 mL/h. Nurse reports she has had no bowel movement for several days. 04/10: No events reported overnight. Remains intubated. Still on Precedex/Cordelia sed/fentanyl for sedation. On pressure control ABG this a.m.: 7.38/57/80. WBC 18.317.3. On insulin infusion for glucose control. On Glucerna + Prosource. Creatinine 0.7. KUB obtained yesterday showed a gasless abdomen, incongruent with physical exam (possibly due to morbid obesity). Still no BM. 04/11: Had brisk diuresis with furosemide 40 mg IV single dose (2600 mL urine output), which resulted in a decrease in CVP. However, CVP is now back up to 910. On PRVC mode. ABG this a.m.: 7.46/46/53. Creatinine 0.6. WBC 17.3>11.4. Still no BM. On Versed/fentanyl/Precedex for sedation. Opens eyes to physical stimuli. Tube feeding currently on hold due to high residuals. Of note, even in the absence of tube feeding, the patient is having gastric residuals in the 200s. 04/12: No events reported overnight. Remains intubated. I/O- 6159 mL over the past 24 hours. DVT. On PRVC 22/450/100/12. ABG this a.m.: 7.50/42/59. On Versed/fentanyl/Precedex for sedation. She does demonstrate spontaneous eye opening. She does not follow commands. KUB yesterday demonstrates a paucity of bowel gas (but, no longer gasless). Creatinine 0.7. WBC 11.2. 04/13: No events reported overnight. Was switched to BiVENT/APRV yesterday (FiO2 80%, P high 17, T high 9.5 seconds, P low 3, T low 0.5 seconds). ABG this a.m.: 7.42/50/72. Off insulin infusion. Overnight, the patient had an episode of hypoglycemia (40) despite being on trickle tube feeds. WBC this morning 21.2. No fever. Today, the patient is much more awake. She bites down on the tube. Eyes remain open. Does not follow commands. Creatinine 0.7. 04/14: No events reported overnight. On BiVENT/APRV. Awake despite sedation with propofol/fentanyl. ABG this a.m. 7.43/43/65. Back on insulin infusion. Afebrile. WBC this morning 22. 12/6: No events reported overnight. On BiVENT/APRV. Appears to be overly se dated. ABG this a.m. 7., indeed compatible with oversedation. On and off insulin infusion. Glucose coming under better control. Afebrile. WBC 18.2. Blood cultures (04/13) isolated gram-positive cocci in clusters. Tracheal aspirate (04/13) isolated Staphylococcus aureus. 04/16: Seems to be awake but not oriented. Not answering questions. Still on bivent. Very difficult to adaquatley sedate. GPC seems to be MSSA. Final report pending. 04/17 GPC is MSSA sens to rocephin. Still unsure if it's a contaminate. No progress made on ventilator. Still 100% and PEEP 14. 04/18: CXR looks better. Will try weaning today. FiO2 first. 04/19: Not able to wean yesterday. O2 saturations 95-96%. Will wean PEEP. Down to 10 in effort to lower PEEP for trach which I believe she will need. No weaning on drips yet. 04/20: Will need trach and PEG. O2 saturations worse, in mid to low 80s on 100%. Review of systems relevant to events:: Pulmonary, neurologic/psychiatric Reason for ICU Addmission:: acute respiratory failure, covid -19 pneumonia, intubated. - Medications: Medications reviewed and adjusted accordingly: Yes Vasopressors:: Levophed Sedation:: Fentanyl, versed, Precedex. Physical Exam Vital Signs: Temp Pulse Resp BP Pulse Ox 98.4 F 90 23 H 150/79 H 74 L 04/20/20 07:44 04/20/20 08:09 04/20/20 08:32 04/20/20 08:32 04/20/20 08:32 Intake & Output 04/19/20 04/20/20 04/21/20 06:59 06:59 06:59 Intake Total 3253 2955 Output Total 2475 1205 100 Balance 778 1750 -100 Weight 148.9 kg 150.1 kg Weight/Height Weight 150.1 kg Height 5 ft 3 in General appearance: PRESENT: no acute distress Head exam: PRESENT: atraumatic, normocephalic Eye exam: PRESENT: conjunctiva pink, PERRLA. ABSENT: scleral icterus Ear exam: PRESENT: normal external ear exam Mouth exam: PRESENT: moist, tongue midline Respiratory exam: PRESENT: clear to auscultation reji, decreased breath sounds. ABSENT: rales, rhonchi, wheezes Cardiovascular exam: PRESENT: RRR. ABSENT: diastolic murmur, rubs, systolic murmur GI/Abdominal exam: PRESENT: normal bowel sounds, soft. ABSENT: distended, guarding, mass, organolmegaly, rebound, tenderness Rectal exam: PRESENT: deferred Gentrourinary exam: PRESENT: indwelling catheter Extremities exam: PRESENT: full ROM. ABSENT: calf tenderness, clubbing, pedal edema Psychiatric exam: PRESENT: other - Heavily sedated and on rocuronium. Skin exam: PRESENT: dry, intact, warm. ABSENT: cyanosis, rash Tubes/Lines: PRESENT: Endotracheal Tube, Nasogastic Tube Laboratory/Radiographs Laboratory Results: 04/20/20 04:38 04/20/20 04:38 04/20/20 04/20/20 04/20/20 04:38 04:38 04:38 WBC 10.4 RBC 3.34 L Hgb 8.0 L Hct 25.7 L MCV 77 L MCH 23.9 L MCHC 31.0 L RDW 26.3 H Plt Count 179 Seg Neutrophils % Not Reportable Carbonic Acid 1.46 H HCO3/H2CO3 Ratio 17:1 ABG pH 7.33 L ABG pCO2 48.6 H ABG pO2 60.2 L ABG HCO3 25.2 H ABG O2 Saturation 89.2 L ABG Base Excess -0.8 FiO2 100% Sodium 143.5 Potassium 3.8 Chloride 113 H Carbon Dioxide 29 Anion Gap 2 L BUN 22 H Creatinine 0.56 Est GFR ( Amer) > 60 Glucose 99 Calcium 9.4 Phosphorus 3.1 Magnesium 1.8 Total Bilirubin 0.6 AST 36 Alkaline Phosphatase 68 Total Protein 5.6 L Albumin 2.5 L 03/21/20 04/11/20 04/14/20 21:58 03:05 01:59 Troponin I < 0.012 NT-Pro-B Natriuret Pep 192 H 184 H Impressions: Abdomen Ultrasound 04/10/20 00:00 IMPRESSION: NO EVIDENCE FOR ASCITES. KUB X-Ray 04/11/20 00:00 IMPRESSION: 1. Similar appearance of the abdomen with a relative paucity of bowel gas. 2. The tip of the enteric tube projects within the gastric lumen. Chest X-Ray 04/18/20 05:00 IMPRESSION: Improved but persistent diffuse bilateral interstitial opacities. Stable support lines and tubes as above. All labs, radiographs, diagnostic studies and EKGs were personally reviewed: Yes In addition, reports of radiographic and diagnostic studies were read: Yes Assessment and Plan - Diagnosis (1) Pneumonia due to COVID-19 virus Is this a current diagnosis for this admission?: Yes Plan: Worsening O2 saturations despite 100% does not maynor well for survivability after so many days. (2) Morbid obesity with BMI of 50.0-59.9, adult Is this a current diagnosis for this admission?: Yes Plan: Risk factor for COVID mortality. (3) Schizophrenia Qualifiers: Schizophrenia type: unspecified Qualified Code(s): F20.9 - Schizophrenia, unspecified Is this a current diagnosis for this admission?: Yes Plan: Not able to tell degree of severity. (4) Anemia Is this a current diagnosis for this admission?: Yes Plan: Hgb 8.0 today. Plan Summary: Confirm low pO2 with a blood gas, but on 100% and high peep and an inability to prone there is really not much else that can be done. ECMO is a thought but all centers here in the area are filled. Critical Time Critical Time (minutes): 35 Level of Care: ICU Anticipated discharge: SNF Anticipated DC Timeframe: Other -: 1. The care of a critical patient is a dynamic process. This note is a used equipment sales representative synopsis but static in nature. The timeframe for treatments given in order is not necessarily the actual time these treatments may have been done. 2. This patient requires critical care secondary to ongoing requirements for therapy not offered or safe outside the critical care environment. Transfer to a lower level of care will result in altered life or limb morbidity and mortality. 3. Multidisciplinary rounds completed. 4. ABCDE bundle addressed.
[2020-04-20] MEDS: ASCORBIC ACID 500 MG TABLET NG SCH ×2 (09:07→17:09)
[2020-04-20] MEDS: CHOLECALCIFEROL (D3) 1,000 UNIT (25 MCG) TABLET NG SCH (09:07)
[2020-04-20] MEDS: METHYLPREDNISOLONE INJ 40 MG/1 ML SDV IV SCH (09:08)
[2020-04-20] MEDS: AMINO AC/PROTEIN HYDR/WHEY PRO 11 GM/45 ML PKT NG SCH ×4 (09:08→21:39)
[2020-04-20] MEDS: SENNOSIDES/DOCUSATE 8.6-50 MG 1 EACH TABLET NG SCH ×2 (09:08→17:09)
[2020-04-20] MEDS: FAMOTIDINE INJ/PF 20 MG/2 ML SDV IV SCH ×2 (09:08→21:58)
[2020-04-20] MEDS: ZINC SULFATE 220 MG CAPSULE NG SCH (09:08)
[2020-04-21] MEDS: NORMAL SALINE 500 ML with ROCURONIUM BROMIDE 500 MG IV PRN ×6 (01:10→17:21)
[2020-04-21] MEDS: MIDAZOLAM HCL 50 MG/100 ML RTUINJ IV PRN ×7 (01:38→20:54)
[2020-04-21] MEDS: ALBUTEROL SULFATE 0.083% NEB 2.5 MG/3 ML AMPUL NEB SCH ×4 (02:19→20:45)
[2020-04-21] MEDS: DEXMEDETOMIDINE IN NS 400 MCG/100 ML RTUPB IV PRN ×4 (02:20→21:33)
[2020-04-21] MEDS: FENTANYL CITRATE/PF 600 MCG/60 ML BAG IV PRN ×7 (02:59→23:21)
[2020-04-21 04:22] LABS: ARTERIAL BLOOD BASE EXCESS -0.4 mmol/L; ARTERIAL BLOOD H2CO3 1.48 mmol/L (1.05-1.35); ARTERIAL BLOOD HCO3 25.7 mmol/L (20-24); ARTERIAL BLOOD O2 SATURATION 96.9 % (94-98); ARTERIAL BLOOD PCO2 49.3 mmHg (35-45); ARTERIAL BLOOD PH 7.34 (7.35-7.45); ARTERIAL BLOOD PO2 96.7 mmHg (80-100); ARTERIAL BLOOD TOTAL CO2 27.2 mmol/L (21-25)
[2020-04-21 04:24] LABS: ARTERIAL BLOOD FIO2 100%
[2020-04-21 04:32] LABS: HEMATOCRIT 25.4 % (36.0-47.0); HEMOGLOBIN 8.2 g/dL (12.0-15.5); MEAN CORPUSCULAR HGB CONC 32.4 g/dL (32.0-36.0); MEAN CORPUSCULAR VOLUME 77 fl (80-97); PLATELET COUNT 164 10^3/uL (150-450); RED BLOOD COUNT 3.28 10^6/uL (3.72-5.28); RED CELL DISTRIBUTION WIDTH 27.7 % (11.5-14.0); WHITE BLOOD COUNT 9.1 10^3/uL (4.0-10.5)
[2020-04-21 04:41] LABS: ALBUMIN 2.5 g/dL (3.5-5.0); ALKALINE PHOSPHATASE 69 U/L (38-126); ANION GAP 8 (5-19); ASPARTATE AMINO TRANSFERASE 37 U/L (14-36); BILIRUBIN,DIRECT 0.4 mg/dL (0.0-0.4); BILIRUBIN,TOTAL 0.8 mg/dL (0.2-1.3); BLOOD UREA NITROGEN 18 mg/dL (7-20); C-REACTIVE PROTEIN 46.4 mg/L (<10.0); CALCIUM 9.5 mg/dL (8.4-10.2); CARBON DIOXIDE 25 mmol/L (22-30); CHLORIDE 112 mmol/L (98-107); GLUCOSE 122 mg/dL (75-110); PHOSPHORUS 3.6 mg/dL (2.5-4.5); POTASSIUM 3.6 mmol/L (3.6-5.0); TOTAL PROTEIN 5.7 g/dL (6.3-8.2)
[2020-04-21 04:56] LABS: ABSOLUTE LYMPHOCYTES# (MANUAL) 1.7 10^3/uL (0.5-4.7); ABSOLUTE MONOCYTES # (MANUAL) 0.4 10^3/uL (0.1-1.4); BASOPHILS % (MANUAL) 0 % (0-2); EOSINOPHILS % (MANUAL) 2 % (0-6); LYMPHOCYTES % (MANUAL) 19 % (13-45); MONOCYTES % (MANUAL) 4 % (3-13); SEGMENTED NEUTROPHILS % (MAN) 75 % (42-78); TOTAL CELLS COUNTED 100
[2020-04-21 04:59] LABS: ANISOCYTOSIS 4+; HYPOCHROMASIA 1+; PLATELET COMMENT ADEQUATE; POLYCHROMASIA 1+
[2020-04-21] MEDS: HEPARIN SOD (PORCINE) 5,000 UNIT/ML 1 ML VIAL SUBCUT SCH ×3 (05:38→21:06)
[2020-04-21] MEDS: METOCLOPRAMIDE HCL INJ/PF 10 MG/2 ML SDV IV SCH ×4 (05:38→23:20)
[2020-04-21] MEDS: BUDESONIDE NEB 0.25 MG/2 ML AMPUL NEB SCH ×2 (07:58→20:45)
[2020-04-21] MEDS: METHYLPREDNISOLONE INJ 40 MG/1 ML SDV IV SCH (10:36)
[2020-04-21] MEDS: CHOLECALCIFEROL (D3) 1,000 UNIT (25 MCG) TABLET NG SCH (10:37)
[2020-04-21] MEDS: FAMOTIDINE INJ/PF 20 MG/2 ML SDV IV SCH ×2 (10:37→21:06)
[2020-04-21] MEDS: ZINC SULFATE 220 MG CAPSULE NG SCH (10:37)
[2020-04-21] MEDS: SENNOSIDES/DOCUSATE 8.6-50 MG 1 EACH TABLET NG SCH ×2 (10:37→17:49)
[2020-04-21] MEDS: AMINO AC/PROTEIN HYDR/WHEY PRO 11 GM/45 ML PKT NG SCH ×4 (10:37→21:07)
[2020-04-21] MEDS: ASCORBIC ACID 500 MG TABLET NG SCH ×2 (10:37→17:49)
[2020-04-21] MEDS: CEFTRIAXONE 1 GM/D5W RTU 1 GM/50 ML RTUPB IV SCH ×2 (10:38→21:07)
--- NOTE | 2020-04-21 10:39 | RADIOLOGY REPORT (SQ) ---
EXAM DESCRIPTION: CHEST SINGLE VIEW IMAGES COMPLETED DATE/TIME: 04/21/2020 5:37 am REASON FOR STUDY: civud/vent COMPARISON: 04/18/2020 FINDINGS: View chest AP portable semi-upright. Support lines and tubes appropriate including endotracheal and nasogastric tubes and left IJ line. Slightly lower lung volumes results in vascular crowding and atelectasis. No new or developing infil trates allowing for this. No pneumothorax. Stable cardiomediastinal silhouette. TECHNICAL DOCUMENTATION: JOB ID: [id number] Reading location - IP/workstation name: [email or web address]
--- NOTE | 2020-04-21 11:09 | PDOC CRITICAL CARE PROG REPORT ---
General Date:: 04/21/20 ICU Day:: 20 Ventilator Day:: 20 Hospital Day:: 30 Resuscitation Status: Full Code Events in the past 12 to 24 Hours:: This 44-year-old -[place] female presented to [facility] emergency department on 03/21/2020 with complaints of possible presyncope versus syncope in addition to fever, chills, productive cough, dyspnea and exertional dyspnea. She has a history of psychiatric disorders and is known to be a difficult historian. Nonetheless, the patient also was known to have been diagnosed with COVID-19 pneumonia on 03/17/2020 and had subsequently been evaluated in the emergency department. She was apparently discharged home with prescriptions for azithromycin and other medications for symptomatic treatment. She returned with worsening shortness of breath and newly demonstrating supplemental oxygen requirement. 04/09: Remains intubated. Sedated with Precedex/Versed/fentanyl. On pressure control mode with peak and plateau pressures in the 40s. ABG this a.m.: 7.45/38/64. WBC 20.7>18.3. On Glucerna at 30 mL/h. Nurse reports she has had no bowel movement for several days. 04/10: No events reported overnight. Remains intubated. Still on Precedex/Cordelia sed/fentanyl for sedation. On pressure control ABG this a.m.: 7.38/57/80. WBC 18.317.3. On insulin infusion for glucose control. On Glucerna + Prosource. Creatinine 0.7. KUB obtained yesterday showed a gasless abdomen, incongruent with physical exam (possibly due to morbid obesity). Still no BM. 04/11: Had brisk diuresis with furosemide 40 mg IV single dose (2600 mL urine output), which resulted in a decrease in CVP. However, CVP is now back up to 910. On PRVC mode. ABG this a.m.: 7.46/46/53. Creatinine 0.6. WBC 17.3>11.4. Still no BM. On Versed/fentanyl/Precedex for sedation. Opens eyes to physical stimuli. Tube feeding currently on hold due to high residuals. Of note, even in the absence of tube feeding, the patient is having gastric residuals in the 200s. 04/12: No events reported overnight. Remains intubated. I/O- 6159 mL over the past 24 hours. DVT. On PRVC 22/450/100/12. ABG this a.m.: 7.50/42/59. On Versed/fentanyl/Precedex for sedation. She does demonstrate spontaneous eye opening. She does not follow commands. KUB yesterday demonstrates a paucity of bowel gas (but, no longer gasless). Creatinine 0.7. WBC 11.2. 04/13: No events reported overnight. Was switched to BiVENT/APRV yesterday (FiO2 80%, P high 17, T high 9.5 seconds, P low 3, T low 0.5 seconds). ABG this a.m.: 7.42/50/72. Off insulin infusion. Overnight, the patient had an episode of hypoglycemia (40) despite being on trickle tube feeds. WBC this morning 21.2. No fever. Today, the patient is much more awake. She bites down on the tube. Eyes remain open. Does not follow commands. Creatinine 0.7. 04/14: No events reported overnight. On BiVENT/APRV. Awake despite sedation with propofol/fentanyl. ABG this a.m. 7.43/43/65. Back on insulin infusion. Afebrile. WBC this morning 22. 12/6: No events reported overnight. On BiVENT/APRV. Appears to be overly se dated. ABG this a.m. 7., indeed compatible with oversedation. On and off insulin infusion. Glucose coming under better control. Afebrile. WBC 18.2. Blood cultures (04/13) isolated gram-positive cocci in clusters. Tracheal aspirate (04/13) isolated Staphylococcus aureus. 04/16: Seems to be awake but not oriented. Not answering questions. Still on bivent. Very difficult to adaquatley sedate. GPC seems to be MSSA. Final report pending. 04/17 GPC is MSSA sens to rocephin. Still unsure if it's a contaminate. No progress made on ventilator. Still 100% and PEEP 14. 04/18: CXR looks better. Will try weaning today. FiO2 first. 04/19: Not able to wean yesterday. O2 saturations 95-96%. Will wean PEEP. Down to 10 in effort to lower PEEP for trach which I believe she will need. No weaning on drips yet. 04/20: Will need trach and PEG. O2 saturations worse, in mid to low 80s on 100%. 04/21: No further desaturation episodes. Review of systems relevant to events:: Pulmonary Reason for ICU Addmission:: acute respiratory failure, covid -19 pneumonia, intubated. - Medications: Medications reviewed and adjusted accordingly: Yes Vasopressors:: None Sedation:: Precedex, fentanyl, versed. Physical Exam Vital Signs: Temp Pulse Resp BP Pulse Ox 96.6 F L 72 22 H 108/65 98 04/21/20 08:23 04/21/20 10:00 04/21/20 10:00 04/21/20 10:00 04/21/20 10:00 Intake & Output 04/20/20 04/21/20 04/22/20 06:59 06:59 06:59 Intake Total 2955 2532 695 Output Total 1205 1770 225 Balance 1750 762 470 Weight 150.1 kg 152.4 kg Weight/Height Weight 152.4 kg Height 5 ft 3 in General appearance: PRESENT: no acute distress Head exam: PRESENT: atraumatic, normocephalic Eye exam: PRESENT: conjunctiva pink, EOMI, PERRLA. ABSENT: scleral icterus Ear exam: PRESENT: normal external ear exam Mouth exam: PRESENT: moist, tongue midline Respiratory exam: PRESENT: clear to auscultation reji. ABSENT: rales, rhonchi, wheezes Cardiovascular exam: PRESENT: RRR. ABSENT: diastolic murmur, rubs, systolic murmur GI/Abdominal exam: PRESENT: normal bowel sounds, soft. ABSENT: distended, guarding, mass, organolmegaly, rebound, tenderness Rectal exam: PRESENT: deferred Gentrourinary exam: PRESENT: indwelling catheter Extremities exam: PRESENT: full ROM. ABSENT: calf tenderness, clubbing, pedal edema Musculoskeletal exam: PRESENT: normal inspection Neurological exam: PRESENT: other - Heavily sedaed and on rocuronium. Skin exam: PRESENT: dry, intact, warm. ABSENT: cyanosis, rash Tubes/Lines: PRESENT: Endotracheal Tube, Nasogastic Tube Laboratory/Radiographs Laboratory Results: 04/21/20 04:00 04/21/20 04:00 12/04/2904/21/20 04/21/20 04:00 04:00 04:00 WBC 9.1 RBC 3.28 L Hgb 8.2 L Hct 25.4 L MCV 77 L MCH 25.0 L MCHC 32.4 RDW 27.7 H Plt Count 164 Seg Neutrophils % Not Reportable Carbonic Acid 1.48 H HCO3/H2CO3 Ratio 17:1 ABG pH 7.34 L ABG pCO2 49.3 H ABG pO2 96.7 ABG HCO3 25.7 H ABG O2 Saturation 96.9 ABG Base Excess -0.4 FiO2 100% Sodium 144.6 Potassium 3.6 Chloride 112 H Carbon Dioxide 25 Anion Gap 8 BUN 18 Creatinine 0.49 L Est GFR ( Amer) > 60 Glucose 122 H Calcium 9.5 Phosphorus 3.6 Magnesium 1.6 Total Bilirubin 0.8 AST 37 H Alkaline Phosphatase 69 C-Reactive Protein 46.4 H Total Protein 5.7 L Albumin 2.5 L 03/21/20 04/11/20 04/14/20 21:58 03:05 01:59 Troponin I < 0.012 NT-Pro-B Natriuret Pep 192 H 184 H Impressions: Abdomen Ultrasound 04/10/20 00:00 IMPRESSION: NO EVIDENCE FOR ASCITES. KUB X-Ray 04/11/20 00:00 IMPRESSION: 1. Similar appearance of the abdomen with a relative paucity of bowel gas. 2. The tip of the enteric tube projects within the gastric lumen. All labs, radiographs, diagnostic studies and EKGs were personally reviewed: Yes In addition, reports of radiographic and diagnostic studies were read: Yes Assessment and Plan - Diagnosis (1) Pneumonia due to COVID-19 virus Is this a current diagnosis for this admission?: Yes Plan: No further desaturation episodes, but there certainly is the potential as I have told her family. (2) Morbid obesity with BMI of 50.0-59.9, adult Is this a current diagnosis for this admission?: Yes Plan: Chronic and a risk factor for COVID mortality. (3) Schizophrenia Qualifiers: Schizophrenia type: unspecified Qualified Code(s): F20.9 - Schizophrenia, unspecified Is this a current diagnosis for this admission?: Yes Plan: Family says she has been quite functional on no medications. (4) Anemia Is this a current diagnosis for this admission?: Yes Plan: Stable Plan Summary: I spoke to her family yesterday and said she has made little progress and has in fact backslid a bit with yesterday's episode. They are committed to an aggressive approach and want all treatment options. I talked to them about a trach and PEG for which they are in favor. I spoke to Dr. Owen about passing on to next week's surgical team that she will need a trach and PEG. Critical Time Critical Time (minutes): 35 Level of Care: ICU Anticipated discharge: SNF Anticipated DC Timeframe: Other -: 1. The care of a critical patient is a dynamic process. This note is a junior sales representative synopsis but static in nature. The timeframe for treatments giv en in order is not necessarily the actual time these treatments may have been done. 2. This patient requires critical care secondary to ongoing requirements for therapy not offered or safe outside the critical care environment. Transfer to a lower level of care will result in altered life or limb morbidity and mortality. 3. Multidisciplinary rounds completed. 4. ABCDE bundle addressed.
[2020-04-21] MEDS: LABETALOL HCL INJ 20 MG/4 ML DISP.SYRIN IV PRN (14:41)
[2020-04-21] MEDS: NORMAL SALINE 100 ML with INSULIN REGULAR, HUMAN 100 UNIT IV PRN ×2 (17:48)
[2020-04-21] MEDS: PHARMACY COMMUNICATION ORDER MC SCH (18:40)
[2020-04-22] MEDS: MIDAZOLAM HCL 50 MG/100 ML RTUINJ IV PRN ×8 (00:06→21:56)
[2020-04-22] MEDS: NORMAL SALINE 500 ML with ROCURONIUM BROMIDE 500 MG IV PRN ×6 (00:30→18:56)
[2020-04-22] MEDS: ALBUTEROL SULFATE 0.083% NEB 2.5 MG/3 ML AMPUL NEB SCH ×4 (02:14→20:19)
[2020-04-22] MEDS: FENTANYL CITRATE/PF 600 MCG/60 ML BAG IV PRN ×7 (02:31→22:45)
[2020-04-22 04:31] LABS: HEMATOCRIT 25.7 % (36.0-47.0); HEMOGLOBIN 8.2 g/dL (12.0-15.5); MEAN CORPUSCULAR HEMOGLOBIN 24.5 pg (27.0-33.4); MEAN CORPUSCULAR HGB CONC 31.9 g/dL (32.0-36.0); MEAN CORPUSCULAR VOLUME 77 fl (80-97); PLATELET COUNT 166 10^3/uL (150-450); RED BLOOD COUNT 3.35 10^6/uL (3.72-5.28); RED CELL DISTRIBUTION WIDTH 27.4 % (11.5-14.0); WHITE BLOOD COUNT 9.5 10^3/uL (4.0-10.5)
[2020-04-22 05:00] LABS: ALBUMIN 2.4 g/dL (3.5-5.0); ALKALINE PHOSPHATASE 66 U/L (38-126); ANION GAP 5 (5-19); ASPARTATE AMINO TRANSFERASE 41 U/L (14-36); BILIRUBIN,DIRECT 0.3 mg/dL (0.0-0.4); BILIRUBIN,TOTAL 0.6 mg/dL (0.2-1.3); BLOOD UREA NITROGEN 16 mg/dL (7-20); CALCIUM 9.2 mg/dL (8.4-10.2); CARBON DIOXIDE 26 mmol/L (22-30); CHLORIDE 112 mmol/L (98-107); GLUCOSE 84 mg/dL (75-110); PHOSPHORUS 3.7 mg/dL (2.5-4.5); POTASSIUM 3.7 mmol/L (3.6-5.0); TOTAL PROTEIN 5.5 g/dL (6.3-8.2)
[2020-04-22 05:01] LABS: ABSOLUTE LYMPHOCYTES# (MANUAL) 0.9 10^3/uL (0.5-4.7); ABSOLUTE MONOCYTES # (MANUAL) 0.1 10^3/uL (0.1-1.4); BASOPHILS % (MANUAL) 0 % (0-2); EOSINOPHILS % (MANUAL) 5 % (0-6); LYMPHOCYTES % (MANUAL) 9 % (13-45); MONOCYTES % (MANUAL) 1 % (3-13); SEGMENTED NEUTROPHILS % (MAN) 85 % (42-78); TOTAL CELLS COUNTED 100
[2020-04-22 05:02] LABS: PLATELET COMMENT ADEQUATE
[2020-04-22 05:04] LABS: HYPOCHROMASIA 1+; POLYCHROMASIA SLIGHT
[2020-04-22 05:05] LABS: ANISOCYTOSIS 3+; TARGET CELLS SLIGHT
[2020-04-22 05:07] LABS: TEAR DROP CELLS SLIGHT
[2020-04-22 05:11] LABS: OVALOCYTES SLIGHT
[2020-04-22] MEDS: DEXMEDETOMIDINE IN NS 400 MCG/100 ML RTUPB IV PRN ×4 (05:41→20:44)
[2020-04-22] MEDS: METOCLOPRAMIDE HCL INJ/PF 10 MG/2 ML SDV IV SCH ×3 (05:42→17:01)
[2020-04-22] MEDS: HEPARIN SOD (PORCINE) 5,000 UNIT/ML 1 ML VIAL SUBCUT SCH ×3 (05:42→21:56)
--- NOTE | 2020-04-22 08:33 | PDOC CRITICAL CARE PROG REPORT ---
General Date:: 04/22/20 ICU Day:: 21 Ventilator Day:: 21 Hospital Day:: 30 Resuscitation Status: Full Code Events in the past 12 to 24 Hours:: This 44-year-old -[place] female presented to [facility] emergency department on 03/21/2020 with complaints of possible presyncope versus syncope in addition to fever, chills, productive cough, dyspnea and exertional dyspnea. She has a history of psychiatric disorders and is known to be a difficult historian. Nonetheless, the patient also was known to have been diagnosed with COVID-19 pneumonia on 03/17/2020 and had subsequently been evaluated in the emergency department. She was apparently discharged home with prescriptions for azithromycin and other medications for symptomatic treatment. She returned with worsening shortness of breath and newly demonstrating supplemental oxygen requirement. 04/09: Remains intubated. Sedated with Precedex/Versed/fentanyl. On pressure control mode with peak and plateau pressures in the 40s. ABG this a.m.: 7.45/38/64. WBC 20.7>18.3. On Glucerna at 30 mL/h. Nurse reports she has had no bowel movement for several days. 04/10: No events reported overnight. Remains intubated. Still on Precedex/Cordelia sed/fentanyl for sedation. On pressure control ABG this a.m.: 7.38/57/80. WBC 18.317.3. On insulin infusion for glucose control. On Glucerna + Prosource. Creatinine 0.7. KUB obtained yesterday showed a gasless abdomen, incongruent with physical exam (possibly due to morbid obesity). Still no BM. 04/11: Had brisk diuresis with furosemide 40 mg IV single dose (2600 mL urine output), which resulted in a decrease in CVP. However, CVP is now back up to 910. On PRVC mode. ABG this a.m.: 7.46/46/53. Creatinine 0.6. WBC 17.3>11.4. Still no BM. On Versed/fentanyl/Precedex for sedation. Opens eyes to physical stimuli. Tube feeding currently on hold due to high residuals. Of note, even in the absence of tube feeding, the patient is having gastric residuals in the 200s. 04/12: No events reported overnight. Remains intubated. I/O- 6159 mL over the past 24 hours. DVT. On PRVC 22/450/100/12. ABG this a.m.: 7.50/42/59. On Versed/fentanyl/Precedex for sedation. She does demonstrate spontaneous eye opening. She does not follow commands. KUB yesterday demonstrates a paucity of bowel gas (but, no longer gasless). Creatinine 0.7. WBC 11.2. 04/13: No events reported overnight. Was switched to BiVENT/APRV yesterday (FiO2 80%, P high 17, T high 9.5 seconds, P low 3, T low 0.5 seconds). ABG this a.m.: 7.42/50/72. Off insulin infusion. Overnight, the patient had an episode of hypoglycemia (40) despite being on trickle tube feeds. WBC this morning 21.2. No fever. Today, the patient is much more awake. She bites down on the tube. Eyes remain open. Does not follow commands. Creatinine 0.7. 04/14: No events reported overnight. On BiVENT/APRV. Awake despite sedation with propofol/fentanyl. ABG this a.m. 7.43/43/65. Back on insulin infusion. Afebrile. WBC this morning 22. 12/6: No events reported overnight. On BiVENT/APRV. Appears to be overly se dated. ABG this a.m. 7., indeed compatible with oversedation. On and off insulin infusion. Glucose coming under better control. Afebrile. WBC 18.2. Blood cultures (04/13) isolated gram-positive cocci in clusters. Tracheal aspirate (04/13) isolated Staphylococcus aureus. 04/16: Seems to be awake but not oriented. Not answering questions. Still on bivent. Very difficult to adaquatley sedate. GPC seems to be MSSA. Final report pending. 04/17 GPC is MSSA sens to rocephin. Still unsure if it's a contaminate. No progress made on ventilator. Still 100% and PEEP 14. 04/18: CXR looks better. Will try weaning today. FiO2 first. 04/19: Not able to wean yesterday. O2 saturations 95-96%. Will wean PEEP. Down to 10 in effort to lower PEEP for trach which I believe she will need. No weaning on drips yet. 04/20: Will need trach and PEG. O2 saturations worse, in mid to low 80s on 100%. 04/21: No further desaturation episodes. 04/22: Essentialy no change. Talked with Dr. Vale regarding need for trach next week Review of systems relevant to events:: Pulmonary Reason for ICU Addmission:: acute respiratory failure, covid -19 pneumonia, intubated. - Medications: Medications reviewed and adjusted accordingly: Yes Vasopressors:: None Sedation:: Precedex, fentanyl, versed. Physical Exam Vital Signs: Temp Pulse Resp BP Pulse Ox 97.4 F 63 22 H 152/102 H 89 L 04/22/20 03:48 04/22/20 02:15 04/22/20 07:00 04/22/20 06:56 04/22/20 07:00 Intake & Output 04/21/20 04/22/20 04/23/20 06:59 06:59 06:59 Intake Total 2532 3490 Output Total 1770 1600 Balance 762 1890 Weight 152.4 kg 155.4 kg Weight/Height Weight 155.4 kg Height 5 ft 3 in General appearance: PRESENT: no acute distress Head exam: PRESENT: atraumatic, normocephalic Eye exam: PRESENT: conjunctiva pink, EOMI, PERRLA. ABSENT: scleral icterus Ear exam: PRESENT: normal external ear exam Mouth exam: PRESENT: moist, tongue midline Respiratory exam: PRESENT: clear to auscultation reji. ABSENT: rales, rhonchi, wheezes Cardiovascular exam: PRESENT: RRR. ABSENT: diastolic murmur, rubs, systolic murmur GI/Abdominal exam: PRESENT: normal bowel sounds, soft. ABSENT: distended, guarding, mass, organolmegaly, rebound, tenderness Rectal exam: PRESENT: deferred Gentrourinary exam: PRESENT: indwelling catheter Extremities exam: PRESENT: full ROM. ABSENT: calf tenderness, clubbing, pedal edema Musculoskeletal exam: PRESENT: normal inspection Neurological exam: PRESENT: other - Heavily sedated and on rocuronium. Skin exam: PRESENT: dry, intact, warm. ABSENT: cyanosis, rash Tubes/Lines: PRESENT: Endotracheal Tube, Central Line, Nasogastic Tube Laboratory/Radiographs Laboratory Results: 04/22/20 04:00 04/22/20 04:00 04/22/20 04/22/20 04/22/20 04:00 04:00 04:00 WBC 9.5 RBC 3.35 L Hgb 8.2 L Hct 25.7 L MCV 77 L MCH 24.5 L MCHC 31.9 L RDW 27.4 H Plt Count 166 Seg Neutrophils % Not Reportable Sodium 143.2 Potassium 3.7 Chloride 112 H Carbon Dioxide 26 Anion Gap 5 BUN 16 Creatinine 0.36 L Est GFR ( Amer) > 60 Glucose 84 Calcium 9.2 Phosphorus 3.7 Magnesium 1.6 Total Bilirubin 0.6 AST 41 H Alkaline Phosphatase 66 Total Protein 5.5 L Albumin 2.4 L Triglycerides 134 03/21/20 04/11/20 04/14/20 21:58 03:05 01:59 Troponin I < 0.012 NT-Pro-B Natriuret Pep 192 H 184 H Impressions: Abdomen Ultrasound 04/10/20 00:00 IMPRESSION: NO EVIDENCE FOR ASCITES. KUB X-Ray 04/11/20 00:00 IMPRESSION: 1. Similar appearance of the abdomen with a relative paucity of david wel gas. 2. The tip of the enteric tube projects within the gastric lumen. All labs, radiographs, diagnostic studies and EKGs were personally reviewed: Yes In addition, reports of radiographic and diagnostic studies were read: Yes Assessment and Plan - Diagnosis (1) Pneumonia due to COVID-19 virus Is this a current diagnosis for this admission?: Yes Plan: Still on high support with essentially no change. Continue course. (2) Morbid obesity with BMI of 50.0-59.9, adult Is this a current diagnosis for this admission?: Yes Plan: Risk factor for COVID mortality. (3) Schizophrenia Qualifiers: Schizophrenia type: unspecified Qualified Code(s): F20.9 - Schizophrenia, unspecified Is this a current diagnosis for this admission?: Yes Plan: Not severe according to family. (4) Anemia Is this a current diagnosis for this admission?: Yes Plan: Stable. Plan Summary: Low albumin and I/O positive the last few days. Will try albumin and lasix to b egin mobilizing fluid. Critical Time Critical Time (minutes): 35 Level of Care: ICU Anticipated discharge: SNF Anticipated DC Timeframe: Other -: 1. The care of a critical patient is a dynamic process. This note is a strategic partnership representative synopsis but static in nature. The timeframe for treatments given in order is not necessarily the actual time these treatments may have been done. 2. This patient requires critical care secondary to ongoing requirements for therapy not offered or safe outside the critical care environment. Transfer to a lower level of care will result in altered life or limb morbidity and mortality. 3. Multidisciplinary rounds completed. 4. ABCDE bundle addressed.
[2020-04-22] MEDS: BUDESONIDE NEB 0.25 MG/2 ML AMPUL NEB SCH ×2 (08:45→20:19)
[2020-04-22] MEDS: ALBUMIN HUMAN 12.5 GM/50 ML RTUINJ IV SCH ×2 (09:00→09:59)
[2020-04-22] MEDS: LABETALOL HCL INJ 20 MG/4 ML DISP.SYRIN IV PRN ×2 (09:01→14:44)
[2020-04-22] MEDS: ASCORBIC ACID 500 MG TABLET NG SCH ×2 (09:05→17:01)
[2020-04-22] MEDS: METHYLPREDNISOLONE INJ 40 MG/1 ML SDV IV SCH (09:05)
[2020-04-22] MEDS: FAMOTIDINE INJ/PF 20 MG/2 ML SDV IV SCH ×2 (09:05→21:56)
[2020-04-22] MEDS: SENNOSIDES/DOCUSATE 8.6-50 MG 1 EACH TABLET NG SCH ×2 (09:05→17:02)
[2020-04-22] MEDS: CHOLECALCIFEROL (D3) 1,000 UNIT (25 MCG) TABLET NG SCH (09:06)
[2020-04-22] MEDS: CEFTRIAXONE 1 GM/D5W RTU 1 GM/50 ML RTUPB IV SCH ×2 (09:06→21:56)
[2020-04-22] MEDS: ZINC SULFATE 220 MG CAPSULE NG SCH (09:06)
[2020-04-22] MEDS: AMINO AC/PROTEIN HYDR/WHEY PRO 11 GM/45 ML PKT NG SCH ×4 (09:06→21:55)
[2020-04-22] MEDS ORDERED: FUROSEMIDE INJ/PF 40 MG/4 ML SDV IV ONE (09:30)
[2020-04-22] MEDS: POLYETHYLENE GLYCOL 3350 POWDER 17 GM/1 PACKET NG PRN (17:02)
[2020-04-22] MEDS ORDERED: POTASSIUM CHLORIDE 20 MEQ PACKET NG ONE (17:45)
[2020-04-22] MEDS: PHARMACY COMMUNICATION ORDER MC SCH (17:48)
[2020-04-22] MEDS ORDERED: FUROSEMIDE INJ/PF 40 MG/4 ML SDV IV SCH (20:00)
[2020-04-23] MEDS: LABETALOL HCL INJ 20 MG/4 ML DISP.SYRIN IV PRN (00:45)
[2020-04-23] MEDS: METOCLOPRAMIDE HCL INJ/PF 10 MG/2 ML SDV IV SCH ×5 (00:45→23:23)
[2020-04-23] MEDS: MIDAZOLAM HCL 50 MG/100 ML RTUINJ IV PRN ×5 (00:46→14:45)
[2020-04-23] MEDS: FENTANYL CITRATE/PF 600 MCG/60 ML BAG IV PRN ×8 (01:56→23:31)
[2020-04-23] MEDS: ALBUTEROL SULFATE 0.083% NEB 2.5 MG/3 ML AMPUL NEB SCH ×4 (02:23→20:15)
[2020-04-23] MEDS: DEXMEDETOMIDINE IN NS 400 MCG/100 ML RTUPB IV PRN ×5 (02:36→22:19)
[2020-04-23 05:17] LABS: HEMATOCRIT 27.5 % (36.0-47.0); HEMOGLOBIN 8.7 g/dL (12.0-15.5); MEAN CORPUSCULAR HEMOGLOBIN 24.4 pg (27.0-33.4); MEAN CORPUSCULAR HGB CONC 31.7 g/dL (32.0-36.0); MEAN CORPUSCULAR VOLUME 77 fl (80-97); PLATELET COUNT 180 10^3/uL (150-450); RED BLOOD COUNT 3.57 10^6/uL (3.72-5.28); RED CELL DISTRIBUTION WIDTH 27.4 % (11.5-14.0); WHITE BLOOD COUNT 13.6 10^3/uL (4.0-10.5)
[2020-04-23 05:42] LABS: BLOOD UREA NITROGEN 17 mg/dL (7-20); C-REACTIVE PROTEIN 59.1 mg/L (<10.0); CALCIUM 9.5 mg/dL (8.4-10.2); CARBON DIOXIDE 30 mmol/L (22-30); CHLORIDE 108 mmol/L (98-107); GLUCOSE 122 mg/dL (75-110); PHOSPHORUS 3.4 mg/dL (2.5-4.5); POTASSIUM 3.8 mmol/L (3.6-5.0)
[2020-04-23 05:46] LABS: ANION GAP 4 (5-19)
[2020-04-23 05:48] LABS: ABSOLUTE LYMPHOCYTES# (MANUAL) 1.6 10^3/uL (0.5-4.7); ABSOLUTE MONOCYTES # (MANUAL) 0.7 10^3/uL (0.1-1.4); BASOPHILS % (MANUAL) 1 % (0-2); EOSINOPHILS % (MANUAL) 4 % (0-6); LYMPHOCYTES % (MANUAL) 12 % (13-45); MONOCYTES % (MANUAL) 5 % (3-13); SEGMENTED NEUTROPHILS % (MAN) 78 % (42-78); TOTAL CELLS COUNTED 100
[2020-04-23 05:51] LABS: ANISOCYTOSIS 4+; OVALOCYTES 2+; PLATELET COMMENT ADEQUATE; POIKILOCYTOSIS 4+; TEAR DROP CELLS 2+; TOXIC GRANULATION SLIGHT
[2020-04-23] MEDS: HEPARIN SOD (PORCINE) 5,000 UNIT/ML 1 ML VIAL SUBCUT SCH ×3 (05:58→22:13)
[2020-04-23] MEDS: NORMAL SALINE 500 ML with ROCURONIUM BROMIDE 500 MG IV PRN ×2 (07:10)
[2020-04-23] MEDS: BUDESONIDE NEB 0.25 MG/2 ML AMPUL NEB SCH ×2 (08:31→20:15)
[2020-04-23] MEDS ORDERED: MAGNESIUM SULFATE/D5W 1 GM/100 ML RTUPB IV ONE (08:39)
[2020-04-23 08:46] LABS: ARTERIAL BLOOD BASE EXCESS 1.4 mmol/L; ARTERIAL BLOOD H2CO3 1.57 mmol/L (1.05-1.35); ARTERIAL BLOOD HCO3 27.7 mmol/L (20-24); ARTERIAL BLOOD O2 SATURATION 84.6 % (94-98); ARTERIAL BLOOD PCO2 52.2 mmHg (35-45); ARTERIAL BLOOD PH 7.34 (7.35-7.45); ARTERIAL BLOOD PO2 52.3 mmHg (80-100); ARTERIAL BLOOD TOTAL CO2 29.3 mmol/L (21-25)
[2020-04-23 08:56] LABS: ARTERIAL BLOOD FIO2 100%
[2020-04-23] MEDS: MAGNESIUM SULFATE/D5W 1 GM/100 ML RTUPB IV SCH ×3 (08:56→13:10)
[2020-04-23] MEDS: AMINO AC/PROTEIN HYDR/WHEY PRO 11 GM/45 ML PKT NG SCH ×4 (09:06→22:13)
[2020-04-23] MEDS: FAMOTIDINE INJ/PF 20 MG/2 ML SDV IV SCH ×2 (09:06→22:13)
[2020-04-23] MEDS: SENNOSIDES/DOCUSATE 8.6-50 MG 1 EACH TABLET NG SCH ×2 (09:06→17:24)
[2020-04-23] MEDS: ASCORBIC ACID 500 MG TABLET NG SCH ×2 (09:07→17:24)
[2020-04-23] MEDS: CHOLECALCIFEROL (D3) 1,000 UNIT (25 MCG) TABLET NG SCH (09:07)
[2020-04-23] MEDS: ZINC SULFATE 220 MG CAPSULE NG SCH (09:07)
--- NOTE | 2020-04-23 09:25 | RADIOLOGY REPORT (SQ) ---
EXAM DESCRIPTION: CHEST SINGLE VIEW IMAGES COMPLETED DATE/TIME: 04/23/2020 5:49 am REASON FOR STUDY: Septic , intubated COMPARISON: AP view of the chest from 04/21/2020. EXAM PARAMETERS: NUMBER OF VIEWS: One view. TECHNIQUE: An AP view of the chest was obtained. RADIATION DOSE: NA LIMITATIONS: None. FINDINGS: LUNGS AND PLEURA: Unchanged appearance of the lungs and pleura. MEDIASTINUM AND HILAR STRUCTURES: Stable mediastinal and hilar contours. HEART AND VASCULAR STRUCTURES: Stable enlarged cardiac silhouette. BONES: No acute findings. HARDWARE: The tip of the endotracheal tube projects 3 cm above the daisy. The tip of the left IJ ce ntral venous catheter projects within the SVC. The tip of the enteric tube projects within the gastr ic lumen. OTHER: No other finding. IMPRESSION: Tubes and lines as above. Otherwise unchanged radiographic appearance of the chest. TECHNICAL DOCUMENTATION: JOB ID: [id number] 2010 [email or web address]- All Rights Reserved Reading location - IP/workstation name: [email or web address]
[2020-04-23] MEDS ORDERED: MAGNESIUM CITRATE 296 ML BOTTLE PO ONE (11:00)
[2020-04-23] MEDS: CEFTRIAXONE 1 GM/D5W RTU 1 GM/50 ML RTUPB IV SCH ×2 (11:38→22:13)
[2020-04-23] MEDS: METHYLPREDNISOLONE INJ 40 MG/1 ML SDV IV SCH (11:38)
[2020-04-23] MEDS ORDERED: FUROSEMIDE INJ/PF 40 MG/4 ML SDV ONE (11:59)
[2020-04-23] MEDS ORDERED: FUROSEMIDE INJ/PF 40 MG/4 ML SDV IV ONE (13:45)
[2020-04-23] MEDS ORDERED: PROPOFOL 1,000 MG/100 ML INFUS..BTL IV ONE (14:15)
[2020-04-23] MEDS: PROPOFOL 1,000 MG/100 ML INFUS..BTL IV PRN ×2 (14:20→18:00)
[2020-04-23] MEDS: PROPOFOL 1,000 MG/100 ML INFUS..BTL IV ONE ×2 (14:20→17:26)
--- NOTE | 2020-04-23 15:01 | RADIOLOGY REPORT (SQ) ---
EXAM DESCRIPTION: CHEST SINGLE VIEW IMAGES COMPLETED DATE/TIME: 04/23/2020 2:21 pm REASON FOR STUDY: Respiratory Failure COMPARISON: AP view of the chest from 04/23/2020 as 0516 hours. EXAM PARAMETERS: NUMBER OF VIEWS: One view. TECHNIQUE: An AP view of the chest was obtained. RADIATION DOSE: NA LIMITATIONS: None. FINDINGS: LUNGS AND PLEURA: Unchanged appearance of the lungs and pleura. MEDIASTINUM AND HILAR STRUCTURES: Stable mediastinal and hilar contours. HEART AND VASCULAR STRUCTURES: Stable cardiac silhouette. BONES: No acute findings. HARDWARE: The tip of the endotracheal tube projects 12.2 cm above the daisy. The tip of the left IJ central venous catheter projects within the SVC. The tip of the enteric tube projects past the izabela roesophageal junction and outside the field of view of the radiograph. OTHER: No other finding. IMPRESSION: Tubes and lines as above. Otherwise unchanged radiographic appearance of the chest. TECHNICAL DOCUMENTATION: JOB ID: [id number] 2010 [email or web address]- All Rights Reserved Reading location - IP/workstation name: [email or web address]
[2020-04-23] MEDS: PHARMACY COMMUNICATION ORDER MC SCH (17:09)
[2020-04-23 18:08] LABS: ARTERIAL BLOOD BASE EXCESS -0.9 mmol/L; ARTERIAL BLOOD FIO2 100%; ARTERIAL BLOOD H2CO3 1.51 mmol/L (1.05-1.35); ARTERIAL BLOOD HCO3 25.5 mmol/L (20-24); ARTERIAL BLOOD O2 SATURATION 90.3 % (94-98); ARTERIAL BLOOD PCO2 50.3 mmHg (35-45); ARTERIAL BLOOD PH 7.32 (7.35-7.45); ARTERIAL BLOOD PO2 63.4 mmHg (80-100)
[2020-04-23] MEDS ORDERED: DEXTROSE 50%-WATER SYRINGE 12.5 GM/25 ML DOSE IV PRN (18:30)
[2020-04-23] MEDS ORDERED: DEXTROSE 40% GEL 15 GM TUBE X 2 PO PRN (18:30)
[2020-04-23] MEDS ORDERED: DEXTROSE 40% GEL 15 GM TUBE PO PRN (18:30)
[2020-04-23] MEDS ORDERED: GLUCAGON,HUMAN RECOMB 1 MG INJ IM PRN (18:30)
[2020-04-23] MEDS ORDERED: DEXTROSE 50%-WATER SYRINGE 25 GM/50 ML DOSE IV PRN (18:30)
--- NOTE | 2020-04-23 19:25 | PDOC CRITICAL CARE PROG REPORT ---
General Date:: 04/23/20 ICU Day:: 24 Ventilator Day:: 24 Hospital Day:: 33 Resuscitation Status: Full Code Events in the past 12 to 24 Hours:: This 44-year-old -[place] female presented to [facility] emergency department on 03/21/2020 with complaints of possible presyncope versus syncope in addition to fever, chills, productive cough, dyspnea and exertional dyspnea. She has a history of psychiatric disorders and is known to be a difficult historian. Nonetheless, the patient also was known to have been diagnosed with COVID-19 pneumonia on 03/17/2020 and had subsequently been evaluated in the emergency department. She was apparently discharged home with prescriptions for azithromycin and other medications for symptomatic treatment. She returned with worsening shortness of breath and newly demonstrating supplemental oxygen requirement. 04/09-04/10: Remains intubated. Sedated with Precedex/Versed/fentanyl. On pressure control mode with peak and plateau pressures in the 40s. On insulin infusion for glucose control. On Glucerna + Prosource. KUB obtained showed a gasless abdomen, incongruent with physical exam (possibly due to morbid obesity). Still no BM. 04/11-: Had brisk diuresis with furosemide 40 mg IV single dose (2600 mL urine output), which resulted in a decrease in CVP. However, CVP is now back up to 910. On PRVC mode. ABG this a.m.: 7.46/46/53. Creatinine 0.6. WBC 17.3>11.4. Still no BM. On Versed/fentanyl/Precedex for sedation. Opens eyes to physical stimuli. Tube feeding currently on hold due to high residuals. Of note, even in the absence of tube feeding, the patient is having gastric residuals in the 200s. She does demonstrate spontaneous eye opening. She does not follow commands. 04/13-: Switched to BiVENT/APRV on 04/12/2020 (FiO2 80%, P high 17, T high 9.5 seconds, P low 3, T low 0.5 seconds). ABG this a.m.: 7.42/50/72. Off insulin infusion. Overnight, the patient had an episode of hypoglycemia (40) despite being on trickle tube feeds. Blood cultures (04/13) isolated gram-positive cocci in clusters. Tracheal aspirate (04/13) isolated Staphylococcus aureus. GPC is MSSA sens to rocephin. Still unsure if it's a contaminate. No progress made on ventilator. Changed back to PRVC on 04/16. Still 100% and PEEP 14. 04/18: CXR looks better. Will try weaning today. FiO2 first. 04/19-: Not able to wean yesterday. O2 saturations 95-96%. Will wean PEEP. Down to 10 in effort to lower PEEP for trach which I believe she will need. No weaning on drips yet. Will need trach and PEG. O2 saturations worse, in mid to low 80s on 100%. Talked with Dr. Owen regarding need for trach next week. 04/23: Remains intubated. On rocuronium, Versed and fentanyl infusions. FiO2 95%. PRVC. WBC 13.6. D-dimer 3.14. CRP 59.1. Magnesium 1.5. Review of systems relevant to events:: Pulmonary Reason for ICU Addmission:: acute respiratory failure, covid -19 pneumonia, intubated. - Medications: Medications reviewed and adjusted accordingly: Yes Vasopressors:: None Sedation:: Propofol/Precedex/fentanyl Physical Exam Vital Signs: Temp Pulse Resp BP Pulse Ox 98.7 F 95 22 H 106/57 L 97 04/23/20 05:49 04/23/20 07:00 04/23/20 06:07 04/23/20 06:07 04/23/20 06:07 Intake & Output 04/22/20 04/23/20 04/24/20 06:59 06:59 06:59 Intake Total 3490 2424 Output Total 1600 5940 Balance 1890 -3516 Weight 155.4 kg 154.2 kg Weight/Height Weight 154.2 kg Height 1.6 m General appearance: PRESENT: no acute distress, morbidly obese, well-developed, well-nourished Head exam: PRESENT: atraumatic, normocephalic Eye exam: PRESENT: conjunctiva pink. ABSENT: scleral icterus Mouth exam: PRESENT: moist, tongue midline Neck exam: ABSENT: carotid bruit, JVD, lymphadenopathy, thyromegaly Respiratory exam: PRESENT: crackles, decreased breath sounds, rales, symmetrical, tachypnea. ABSENT: rhonchi, wheezes Cardiovascular exam: PRESENT: RRR. ABSENT: diastolic murmur, rubs, systolic murmur Pulses: PRESENT: normal dorsalis pedis pul GI/Abdominal exam: PRESENT: hypoactive bowel sounds, soft. ABSENT: distended, guarding, mass, organolmegaly, rebound, tenderness Gentrourinary exam: PRESENT: indwelling catheter Extremities exam: PRESENT: pedal edema, +2 edema. ABSENT: calf tenderness, clubbing Musculoskeletal exam: PRESENT: normal inspection. ABSENT: deformity Neurological exam: PRESENT: altered Psychiatric exam: ABSENT: agitated, anxious Skin exam: PRESENT: dry, intact, warm, other - Ruptured bulla (left thigh). ABSENT: cyanosis, rash Tubes/Lines: PRESENT: Endotracheal Tube - Insertion date 04/01, Central Line - Left IJ, insertion date 04/01 Laboratory/Radiographs Laboratory Results: 04/23/20 04:30 04/23/20 04:30 04/23/20 04/23/20 04:30 04:30 WBC 13.6 H RBC 3.57 L Hgb 8.7 L Hct 27.5 L MCV 77 L MCH 24.4 L MCHC 31.7 L RDW 27.4 H Plt Count 180 Seg Neutrophils % Not Reportable Sodium 141.6 Potassium 3.8 Chloride 108 H Carbon Dioxide 30 Anion Gap 4 L BUN 17 Creatinine 0.38 L Est GFR ( Amer) > 60 Glucose 122 H Calcium 9.5 Phosphorus 3.4 Magnesium 1.5 L C-Reactive Protein 59.1 H 04/18/20 07:02 Blood Blood Culture - Final NO GROWTH IN 5 DAYS 04/18/20 04:20 Blood Blood Culture - Final NO GROWTH IN 5 DAYS 03/21/20 04/11/20 04/14/20 21:58 03:05 01:59 Troponin I < 0.012 NT-Pro-B Natriuret Pep 192 H 184 H Impressions: Abdomen Ultrasound 04/10/20 00:00 IMPRESSION: NO EVIDENCE FOR ASCITES. KUB X-Ray 04/11/20 00:00 IMPRESSION: 1. Similar appearance of the abdomen with a relative paucity of bowel gas. 2. The tip of the enteric tube projects within the gastric lumen. All labs, radiographs, diagnostic studies and EKGs were personally reviewed: Yes In addition, reports of radiographic and diagnostic studies were read: Yes Assessment and Plan - Diagnosis (1) Acute respiratory failure with hypoxia and hypercapnia Is this a current diagnosis for this admission?: Yes (2) Pneumonia due to COVID-19 virus Is this a current diagnosis for this admission?: Yes Plan: * Still on high support with essentially no change. Continue course. * Recheck COVID status today. (3) Staphylococcus aureus bacteremia Is this a current diagnosis for this admission?: Yes Plan: * Has been on antibiotic coverage since 04/15 (initially with vancomycin), now on Rocephin. (4) Staphylococcal pneumonia Is this a current diagnosis for this admission?: Yes Plan: * MSSA based on culture results. Started vancomycin (04/15) and transitioned to Rocephin. (5) Constipation Qualifiers: Constipation type: slow transit constipation Qualified Code(s): K59.01 - Slow transit constipation Is this a current diagnosis for this admission?: Yes Plan: * Continue Colace. * Continue Reglan. * Add Senna. (6) Leukocytosis Qualifiers: Leukocytosis type: unspecified Qualified Code(s): D72.829 - Elevated white blood cell count, unspecified Is this a current diagnosis for this admission?: Yes (7) Normocytic anemia Is this a current diagnosis for this admission?: Yes (8) Schizophrenia Qualifiers: Schizophrenia type: unspecified Qualified Code(s): F20.9 - Schizophrenia, unspecified Is this a current diagnosis for this admission?: Yes (9) Steroid-induced hyperglycemia Is this a current diagnosis for this admission?: Yes (10) Hypoglycemia Is this a current diagnosis for this admission?: Yes Critical Time Critical Time (minutes): 60 Level of Care: ICU -: 1. The care of a critical patient is a dynamic process. This note is a loan servicing representative synopsis but static in nature. The timeframe for treatments given in order is not necessarily the actual time these treatments may have been done. 2. This patient requires critical care secondary to ongoing requirements for therapy not offered or safe outside the critical care environment. Transfer to a lower level of care will result in altered life or limb morbidity and mortality. 3. Multidisciplinary rounds completed. 4. ABCDE bundle addressed.
[2020-04-23] MEDS: INSULIN REG, HUMAN 100 UNIT/ML 3 ML VIAL (PYX) SUBCUT SCH (23:23)
[2020-04-24] MEDS: DEXMEDETOMIDINE IN NS 400 MCG/100 ML RTUPB IV PRN ×6 (01:45→23:45)
[2020-04-24] MEDS: ALBUTEROL SULFATE 0.083% NEB 2.5 MG/3 ML AMPUL NEB SCH ×4 (02:11→20:29)
[2020-04-24] MEDS: FENTANYL CITRATE/PF 600 MCG/60 ML BAG IV PRN ×9 (02:20→21:40)
[2020-04-24] MEDS: HEPARIN SOD (PORCINE) 5,000 UNIT/ML 1 ML VIAL SUBCUT SCH ×2 (05:13→14:41)
[2020-04-24] MEDS: METOCLOPRAMIDE HCL INJ/PF 10 MG/2 ML SDV IV SCH ×3 (05:14→18:28)
[2020-04-24 05:26] LABS: ABSOLUTE EOSINOPHILS # (AUTO) 0.4 10^3/uL (0.0-0.6); ABSOLUTE MONOCYTES (AUTO) 0.9 10^3/uL (0.1-1.4); ABSOLUTE NEUT (AUTO) 10.1 10^3/uL (1.7-8.2); BASOPHILS % (AUTO) 0.3 % (0-2); HEMATOCRIT 26.6 % (36.0-47.0); HEMOGLOBIN 8.1 g/dL (12.0-15.5); LYMPHOCYTES % (AUTO) 8.2 % (13-45); MEAN CORPUSCULAR HEMOGLOBIN 23.4 pg (27.0-33.4); MEAN CORPUSCULAR HGB CONC 30.4 g/dL (32.0-36.0); MEAN CORPUSCULAR VOLUME 77 fl (80-97); MONOCYTES % (AUTO) 6.9 % (3-13); PLATELET COUNT 188 10^3/uL (150-450); RED BLOOD COUNT 3.46 10^6/uL (3.72-5.28); SEGMENTED NEUTROPHILS % (AUTO) 81.6 % (42-78); TOTAL CELLS COUNTED % (AUTO) 100 %; WHITE BLOOD COUNT 12.4 10^3/uL (4.0-10.5)
[2020-04-24 05:30] LABS: ANISOCYTOSIS 4+; HYPOCHROMASIA 1+; OVALOCYTES SLIGHT; PLATELET COMMENT ADEQUATE; POIKILOCYTOSIS 1+; POLYCHROMASIA 1+; SCHISTOCYTES SLIGHT; TEAR DROP CELLS SLIGHT; TOXIC GRANULATION 1+
[2020-04-24 05:32] LABS: ARTERIAL BLOOD FIO2 95%; ARTERIAL BLOOD H2CO3 2.04 mmol/L (1.05-1.35); ARTERIAL BLOOD HCO3 29.3 mmol/L (20-24); ARTERIAL BLOOD O2 SATURATION 96.7 % (94-98); ARTERIAL BLOOD PCO2 67.8 mmHg (35-45); ARTERIAL BLOOD PH 7.25 (7.35-7.45); ARTERIAL BLOOD PO2 104.2 mmHg (80-100); ARTERIAL BLOOD TOTAL CO2 31.4 mmol/L (21-25)
[2020-04-24] MEDS: PROPOFOL 1,000 MG/100 ML INFUS..BTL IV PRN ×4 (05:39→20:38)
[2020-04-24 05:48] LABS: BLOOD UREA NITROGEN 18 mg/dL (7-20); CALCIUM 9.1 mg/dL (8.4-10.2); GLUCOSE 130 mg/dL (75-110)
[2020-04-24 05:49] LABS: ANION GAP 2 (5-19); CARBON DIOXIDE 33 mmol/L (22-30); CHLORIDE 106 mmol/L (98-107); PHOSPHORUS 4.7 mg/dL (2.5-4.5); POTASSIUM 4.1 mmol/L (3.6-5.0)
[2020-04-24] MEDS: INSULIN REG, HUMAN 100 UNIT/ML 3 ML VIAL (PYX) SUBCUT SCH ×3 (05:54→18:32)
[2020-04-24] MEDS: BUDESONIDE NEB 0.25 MG/2 ML AMPUL NEB SCH ×2 (08:44→20:29)
--- NOTE | 2020-04-24 09:25 | RADIOLOGY REPORT (SQ) ---
EXAM DESCRIPTION: CHEST SINGLE VIEW IMAGES COMPLETED DATE/TIME: 04/24/2020 6:11 am REASON FOR STUDY: Septic , intubated COMPARISON: Multiple chest films since 04/18/2020 EXAM PARAMETERS: NUMBER OF VIEWS: One view. TECHNIQUE: Single frontal radiographic view of the chest acquired. RADIATION DOSE: NA LIMITATIONS: Left lateral costophrenic sulcus cropped from the field of view FINDINGS: LUNGS AND PLEURA: No change in diffuse alveolar and interstitial infiltrates compared to 06/24/2019. No pleural effusion. No pneumothorax. MEDIASTINUM AND HILAR STRUCTURES: No masses. Contour normal. HEART AND VASCULAR STRUCTURES: Stable cardiomegaly BONES: No acute findings. HARDWARE: Endotracheal tube tip 3 to 4 cm above the daisy. Nasogastric tube tip and side port in th e stomach. Left jugular central line tip superior vena cava. OTHER: No other significant finding. IMPRESSION: No change from yesterday TECHNICAL DOCUMENTATION: JOB ID: [id number] 2010 [employer]- All Rights Reserved Reading location - IP/workstation name: [email or web address]
[2020-04-24] MEDS ORDERED: FUROSEMIDE INJ/PF 40 MG/4 ML SDV IV ONE ×2 (10:19→19:30)
[2020-04-24] MEDS: ASCORBIC ACID 500 MG TABLET NG SCH ×2 (11:58→18:27)
[2020-04-24] MEDS: CHOLECALCIFEROL (D3) 1,000 UNIT (25 MCG) TABLET NG SCH (11:58)
[2020-04-24] MEDS: ZINC SULFATE 220 MG CAPSULE NG SCH (11:59)
[2020-04-24 12:00] LABS: ARTERIAL BLOOD BASE EXCESS 3.9 mmol/L; ARTERIAL BLOOD H2CO3 1.57 mmol/L (1.05-1.35); ARTERIAL BLOOD O2 SATURATION 60.1 % (94-98); ARTERIAL BLOOD PCO2 52.1 mmHg (35-45); ARTERIAL BLOOD PH 7.38 (7.35-7.45); ARTERIAL BLOOD TOTAL CO2 31.6 mmol/L (21-25)
[2020-04-24] MEDS: METHYLPREDNISOLONE INJ 40 MG/1 ML SDV IV SCH (12:00)
[2020-04-24] MEDS: FAMOTIDINE INJ/PF 20 MG/2 ML SDV IV SCH ×2 (12:00→22:16)
[2020-04-24] MEDS: SENNOSIDES/DOCUSATE 8.6-50 MG 1 EACH TABLET NG SCH ×2 (12:03→18:27)
[2020-04-24 12:06] LABS: ARTERIAL BLOOD FIO2 95%; ARTERIAL BLOOD PO2 32.5 mmHg (80-100)
[2020-04-24] MEDS ORDERED: ALTEPLASE INJ 2 MG VIAL (CATH CLEARANCE) IV ONE ×2 (12:14→12:57)
[2020-04-24] MEDS: AMINO AC/PROTEIN HYDR/WHEY PRO 11 GM/45 ML PKT NG SCH ×3 (12:20→18:28)
--- NOTE | 2020-04-24 13:09 | RADIOLOGY REPORT (SQ) ---
EXAM DESCRIPTION: CHEST SINGLE VIEW IMAGES COMPLETED DATE/TIME: 04/24/2020 12:40 pm REASON FOR STUDY: acute desaturation, ETTT COMPARISON: Earlier the same day. NUMBER OF VIEWS: One view. TECHNIQUE: Single frontal radiographic image of the chest acquired. LIMITATIONS: None. FINDINGS: LUNGS AND PLEURA: Diffuse bilateral ground-glass attenuation. No pneumothorax. Stable ap pearance. MEDIASTINUM AND HEART: Stable heart size and mediastinal structures. SUPPORT DEVICES: Appropriate location without change. BONY STRUCTURES: No acute findings. HARDWARE: None. OTHER: No other significant finding. IMPRESSION: No significant change. No pneumothorax. Reading location - IP/workstation name: [email or web address]
[2020-04-24] MEDS ORDERED: HEPARIN SOD (PORCINE) 1,000 UNIT/ML 10 ML VIAL IV ONE (14:12)
[2020-04-24] MEDS ORDERED: HEPARIN SODIUM,PORCINE/D5W 25,000 UNIT/250 ML RTUINJ IV ONE (14:23)
[2020-04-24] MEDS ORDERED: HEPARIN SOD (PORCINE) 1,000 UNIT/ML 10 ML VIAL ONE (14:29)
[2020-04-24] MEDS ORDERED: NOREPINEPHRINE BITARTRATE INJ/PF 4 MG/4 ML SDV IV ONE (15:53)
[2020-04-24] MEDS: DEXTROSE 5%-WATER 250 ML with NOREPINEPHRINE BITARTRATE 4 MG IV PRN ×2 (15:53)
[2020-04-24 16:13] LABS: ARTERIAL BLOOD BASE EXCESS -5.3 mmol/L; ARTERIAL BLOOD FIO2 100%; ARTERIAL BLOOD H2CO3 1.88 mmol/L (1.05-1.35); ARTERIAL BLOOD HCO3 23.1 mmol/L (20-24); ARTERIAL BLOOD O2 SATURATION 15.2 % (94-98); ARTERIAL BLOOD PCO2 62.3 mmHg (35-45)
[2020-04-24 16:16] LABS: ARTERIAL BLOOD PH 7.19 (7.35-7.45); ARTERIAL BLOOD PO2 16.1 mmHg (80-100)
[2020-04-24] MEDS ORDERED: DOBUTAMINE HCL/D5W 500 MG/250 ML RTUINJ IV ONE (16:17)
[2020-04-24] MEDS ORDERED: DOBUTAMINE HCL/D5W 500 MG/250 ML RTUINJ IV PRN (17:21)
[2020-04-24] MEDS ORDERED: NORMAL SALINE 500 ML IV ONE (17:30)
[2020-04-24] MEDS ORDERED: NORMAL SALINE 1000 ML 1,000 ML IV ONE (17:30)
[2020-04-24] MEDS: PHARMACY COMMUNICATION ORDER MC SCH (18:28)
--- NOTE | 2020-04-24 18:51 | PDOC CRITICAL CARE PROG REPORT ---
General Date:: 04/24/20 ICU Day:: 25 Ventilator Day:: 25 Hospital Day:: 34 Resuscitation Status: Full Code Events in the past 12 to 24 Hours:: This 44-year-old -[place] female presented to [facility] emergency department on 03/21/2020 with complaints of possible presyncope versus syncope in addition to fever, chills, productive cough, dyspnea and exertional dyspnea. She has a history of psychiatric disorders and is known to be a difficult historian. Nonetheless, the patient also was known to have been diagnosed with COVID-19 pneumonia on 03/17/2020 and had subsequently been evaluated in the emergency department. She was apparently discharged home with prescriptions for azithromycin and other medications for symptomatic treatment. She returned with worsening shortness of breath and newly demonstrating supplemental oxygen requirement. 04/09-04/10: Remains intubated. Sedated with Precedex/Versed/fentanyl. On pressure control mode with peak and plateau pressures in the 40s. On insulin infusion for glucose control. On Glucerna + Prosource. KUB obtained showed a gasless abdomen, incongruent with physical exam (possibly due to morbid obesity). Still no BM. 04/11-: Had brisk diuresis with furosemide 40 mg IV single dose (2600 mL urine output), which resulted in a decrease in CVP. However, CVP is now back up to 910. On PRVC mode. ABG this a.m.: 7.46/46/53. Creatinine 0.6. WBC 17.3>11.4. Still no BM. On Versed/fentanyl/Precedex for sedation. Opens eyes to physical stimuli. Tube feeding currently on hold due to high residuals. Of note, even in the absence of tube feeding, the patient is having gastric residuals in the 200s. She does demonstrate spontaneous eye opening. She does not follow commands. 04/13-: Switched to BiVENT/APRV on 04/12/2020 (FiO2 80%, P high 17, T high 9.5 seconds, P low 3, T low 0.5 seconds). ABG this a.m.: 7.42/50/72. Off insulin infusion. Overnight, the patient had an episode of hypoglycemia (40) despite being on trickle tube feeds. Blood cultures (04/13) isolated gram-positive cocci in clusters. Tracheal aspirate (04/13) isolated Staphylococcus aureus. GPC is MSSA sens to rocephin. Still unsure if it's a contaminate. No progress made on ventilator. Changed back to PRVC on 04/16. Still 100% and PEEP 14. 04/18: CXR looks better. Will try weaning today. FiO2 first. 04/19-: Not able to wean yesterday. O2 saturations 95-96%. Will wean PEEP. Down to 10 in effort to lower PEEP for trach which I believe she will need. No weaning on drips yet. Will need trach and PEG. O2 saturations worse, in mid to low 80s on 100%. Talked with Dr. Owen regarding need for trach next week. 04/23: Remains intubated. On rocuronium, Versed and fentanyl infusions. FiO2 95%. PRVC. WBC 13.6. D-dimer 3.14. CRP 59.1. Magnesium 1.5. 04/24: Rocuronium was discontinued yesterday. The patient's ventilator mode was switched to BiVENT. Versed changed to propofol. Still on fentanyl. On BiVENT. [place] sedated. Review of systems relevant to events:: Pulmonary Reason for ICU Addmission:: acute respiratory failure, covid -19 pneumonia, intubated. - Medications: Medications reviewed and adjusted accordingly: Yes Vasopressors:: None Sedation:: Propofol/Precedex/fentanyl Physical Exam Vital Signs: Temp Pulse Resp BP Pulse Ox 97.0 F 65 20 117/92 H 87 L 04/24/20 06:18 04/24/20 02:11 04/24/20 06:18 04/24/20 06:18 04/24/20 06:18 Intake & Output 04/23/20 04/24/20 04/25/20 06:59 06:59 06:59 Intake Total 2424 1904 Output Total 6308 8733 Balance -9673 -1477 Weight 154.2 kg 156.2 kg Weight/Height Weight 156.2 kg Height 1.6 m General appearance: PRESENT: no acute distress, morbidly obese, well-developed, well-nourished Head exam: PRESENT: atraumatic, normocephalic Eye exam: PRESENT: conjunctiva pink, EOMI, PERRLA. ABSENT: scleral icterus Neck exam: ABSENT: carotid bruit, JVD, lymphadenopathy, thyromegaly Respiratory exam: PRESENT: rales, symmetrical, tachypnea. ABSENT: rhonchi, wheezes Cardiovascular exam: PRESENT: RRR. ABSENT: diastolic murmur, rubs, systolic murmur Pulses: PRESENT: normal dorsalis pedis pul GI/Abdominal exam: PRESENT: normal bowel sounds, soft. ABSENT: distended, guarding, mass, organolmegaly, rebound, tenderness Gentrourinary exam: PRESENT: indwelling catheter Extremities exam: PRESENT: full ROM, pedal edema, +1 edema. ABSENT: calf t enderness, clubbing Neurological exam: PRESENT: altered, CN II-XII grossly intact. ABSENT: reflexes normal Psychiatric exam: ABSENT: agitated, anxious Tubes/Lines: PRESENT: Endotracheal Tube - 04/01, Central Line - Left IJ 04/01 Laboratory/Radiographs Laboratory Results: 04/24/20 03:30 04/24/20 03:30 04/23/20 04/23/20 04/24/20 08:30 17:40 03:30 WBC 12.4 H RBC 3.46 L Hgb 8.1 L Hct 26.6 L MCV 77 L MCH 23.4 L MCHC 30.4 L RDW 27.0 H Plt Count 188 Seg Neutrophils % 81.6 H Carbonic Acid 1.57 H 1.51 H HCO3/H2CO3 Ratio 17:1 16:1 ABG pH 7.34 L 7.32 L ABG pCO2 52.2 H 50.3 H ABG pO2 52.3 L 63.4 L ABG HCO3 27.7 H 25.5 H ABG O2 Saturation 84.6 L 90.3 L ABG Base Excess 1.4 -0.9 FiO2 100% 100% Sodium Potassium Chloride Carbon Dioxide Anion Gap BUN Creatinine Est GFR ( Amer) Glucose Calcium Phosphorus Magnesium 04/24/20 04/24/20 03:30 03:30 WBC RBC Hgb Hct MCV MCH MCHC RDW Plt Count Seg Neutrophils % Carbonic Acid 2.04 H HCO3/H2CO3 Ratio 14:1 ABG pH 7.25 L ABG pCO2 67.8 H ABG pO2 104.2 H ABG HCO3 29.3 H ABG O2 Saturation 96.7 ABG Base Excess 1.0 FiO2 95% Sodium 141.3 Potassium 4.1 Chloride 106 Carbon Dioxide 33 H Anion Gap 2 L BUN 18 Creatinine 0.55 Est GFR ( Amer) > 60 Glucose 130 H Calcium 9.1 Phosphorus 4.7 H Magnesium 2.7 H D 04/18/20 07:02 Blood Blood Culture - Final NO GROWTH IN 5 DAYS 04/18/20 04:20 Blood Blood Culture - Final NO GROWTH IN 5 DAYS 03/21/20 04/11/20 04/14/20 21:58 03:05 01:59 Troponin I < 0.012 NT-Pro-B Natriuret Pep 192 H 184 H Impressions: Abdomen Ultrasound 04/10/20 00:00 IMPRESSION: NO EVIDENCE FOR ASCITES. KUB X-Ray 04/11/20 00:00 IMPRESSION: 1. Similar appearance of the abdomen with a relative paucity of bowel gas. 2. The tip of the enteric tube projects within the gastric lumen. All labs, radiographs, diagnostic studies and EKGs were personally reviewed: Yes In addition, reports of radiographic and diagnostic studies were read: Yes Assessment and Plan - Diagnosis (1) Acute respiratory failure with hypoxia and hypercapnia Is this a current diagnosis for this admission?: Yes Plan: * CVP 19. Originally, the plan was to diurese the patient; however, the patient demonstrated acute oxygen desaturation and failed to recover. This was felt followed by hypotension. With clinical suspicion for massive pulmonary embolism, heparin infusion was initiated. tPA was considered; however, 2D echocardiographic interrogation failed to show a dilated RV. SVO 2 was less than 20%. Dobutamine was started. Normal saline 1 L IV bolus was provided empirically for RV failure ahead of 2D echocardiographic interrogation. Official interpretation is pending; however, bedside read appears to demonstrate a hyperdynamic ventricles. * Titrate vent settings based on ABG results. * Continue BiVENT. * Titrate sedation for RASS -2. * Propofol/Precedex for sedation. (2) Pneumonia due to COVID-19 virus Is this a current diagnosis for this admission?: Yes Plan: * Still on high support with essentially no change. Continue course. * Recheck COVID status today. (3) Staphylococcus aureus bacteremia Is this a current diagnosis for this admission?: Yes Plan: * Has been on antibiotic coverage since 04/15 (initially with vancomycin), now on Rocephin. (4) Staphylococcal pneumonia Is this a current diagnosis for this admission?: Yes Plan: * MSSA based on culture results. Started vancomycin (04/15) and transitioned to Rocephin. (5) Constipation Qualifiers: Constipation type: slow transit constipation Qualified Code(s): K59.01 - Slow transit constipation Is this a current diagnosis for this admission?: Yes Plan: * Continue Colace/Reglan/senna. * Finally had BM today. (6) Leukocytosis Qualifiers: Leukocytosis type: unspecified Qualified Code(s): D72.829 - Elevated white blood cell count, unspecified Is this a current diagnosis for this admission?: Yes (7) Normocytic anemia Is this a current diagnosis for this admission?: Yes (8) Schizophrenia Qualifiers: Schizophrenia type: unspecified Qualified Code(s): F20.9 - Schizophrenia, unspecified Is this a current diagnosis for this admission?: Yes (9) Steroid-induced hyperglycemia Is this a current diagnosis for this admission?: Yes (10) Hypoglycemia Is this a current diagnosis for this admission?: Yes Critical Time Critical Time (minutes): 120 Level of Care: ICU -: 1. The care of a critical patient is a dynamic process. This note is a district sales representative synopsis but static in nature. The timeframe for treatments given in order is not necessarily the actual time these treatments may have been done. 2. This patient requires critical care secondary to ongoing requirements for therapy not offered or safe outside the critical care environment. Transfer to a lower level of care will result in altered life or limb morbidity and mortality. 3. Multidisciplinary rounds completed. 4. ABCDE bundle addressed.
[2020-04-24 19:49] LABS: ARTERIAL BLOOD BASE EXCESS -1.9 mmol/L; ARTERIAL BLOOD H2CO3 1.56 mmol/L (1.05-1.35); ARTERIAL BLOOD HCO3 24.8 mmol/L (20-24); ARTERIAL BLOOD O2 SATURATION 63.3 % (94-98); ARTERIAL BLOOD PCO2 51.9 mmHg (35-45); ARTERIAL BLOOD TOTAL CO2 26.4 mmol/L (21-25)
--- NOTE | 2020-04-24 19:49 | XCELERA REPORT ---
[address] [address] Transthoracic Echocardiogram Report Name: CRAIG MCKEON Age: 44 yrs Gender: Female : 1975 Patient Status: Inpatient Patient Location: ICU^602^A Study Date: 04/24/2020 05:34 PM Height: 63 in Weight: 344 lb BSA: 2.4 m2 Procedure: A two-dimensional transthoracic echocardiogram with color flow and Doppler was performed. Study Quality: Poor. Reason For Study: hypotension; RV Failure History: hypotension; RV Failure. Ordering Physician: MARCIE JEONG Performed By: Michelle Weir Interpretation Summary The left ventricle is normal in size. There is normal left ventricular wall thickness. LV EF is 80% LVEFis hyperdynamic. There is no thrombus. Cannot comment on ASD,VSD , or PFO seen. Although RV not well seen suspect RV enlargement.Cannot comment on RV function or RA size. The left atrial size is normal. There is no evidence of mitral valve prolapse. There is no vegetation seen on the mitral valve. There is no mitral valve stenosis. There is a trace amount of mitral regurgitation There is no aortic valvular vegetation. There is a peak gradient of 30.5 mm of Hg. Although there may be trivial most of the AV gradient is due to hyperdynamic LV contractility. No aortic regurgitation is present. There is servere pulmonary hypertension by echo Atleast moderate TR.RVSP is 69 t0 74 mm of HG , with RA mean of 15 to 20. There is no pulmonic valvular stenosis. There is a mild to moderate amount of pulmonic regurgitation The aortic root is not well visualized but is probably normal size. The inferior vena cava appeared dilated and decreased < 50% with respiration (RAP 15-20 mmHg) Theree is trace posterior pericardial effusion. MMode/2D Measurements & Calculations RVDd: 2.9 cm LVIDd: 4.5 cm FS: 51.2 % Ao root diam: 2.4 cm IVSd: 0.86 cm LVIDs: 2.2 cm EDV(Teich): 92.5 ml Ao root area: 4.5 cm2 LVPWd: 1.1 cm ESV(Teich): 16.2 ml LA dimension: 3.2 cm EF(Teich): 82.5 % Doppler Measurements & Calculations MV E max michael: MV P1/2t max michael: Ao V2 max: LV V1 max P.6 cm/sec 144.3 cm/sec 276.3 cm/sec 30.3 mmHg MV A max michael: MV P1/2t: 62.2 msec Ao max PG: LV V1 mean P.6 cm/sec MVA(P1/2t): 3.5 cm2 30.5 mmHg 13.6 mmHg MV E/A: 1.0 MV dec slope: Ao V2 mean: LV V1 max: 162.0 cm/sec 275.4 cm/sec 679.2 cm/sec2 Ao mean PG: LV V1 mean: MV dec time: 0.14 sec 14.0 mmHg 155.1 cm/sec Ao V2 VTI: 36.0 cmLV V1 VTI: 34.8 cm PA V2 max: PI end-d michael: TR max michael: MV P1/2t-pr_phl: 114.5 cm/sec 184.6 cm/sec 367.8 cm/sec 62.2 msec PA max P.2 mmHg TR max P.1 mmHg Left Ventricle The left ventricle is normal in size. There is normal left ventricular wall thickness. The left ventricle is hyperdynamic. LV EF is 80%. Doppler measurements suggest normal left ventricular diastolic function. No regional wall motion abnormalities noted. LVEFis hyperdynamic. There is no thrombus. Cannot comment on ASD,VSD , or PFO seen. Right Ventricle Although RV not well seen suspect RV enlargement.Cannot comment on RV function or RA size. Atria The left atrial size is normal. Mitral Valve There is no evidence of mitral valve prolapse. There is no vegetation seen on the mitral valve. There is no mitral valve stenosis. There is a trace amount of mitral regurgitation. Aortic Valve There is no aortic valvular vegetation. There is a peak gradient of 30.5 mm of Hg. Although there may be trivial most of the AV gradient is due to hyperdynamic LV contractility. No aortic regurgitation is present. Tricuspid Valve There is no tricuspid stenosis. There is servere pulmonary hypertension by echo. Atleast moderate TR.RVSP is 69 t0 74 mm of HG , with RA mean of 15 to 20. Pulmonic Valve There is no pulmonic valvular stenosis. There is a mild to moderate amount of pulmonic regurgitation. Great Vessels The aortic root is not well visualized but is probably normal size. The inferior vena cava appeared dilated and decreased < 50% with respiration (RAP 15-20 mmHg). Effusions Theree is trace posterior pericardial effusion. : MARCIE JEONG, [place]
[2020-04-24 19:50] LABS: ARTERIAL BLOOD FIO2 100%
[2020-04-24 19:52] LABS: ARTERIAL BLOOD PO2 36.7 mmHg (80-100)
[2020-04-24] MEDS: MILRINONE LACTATE/D5W 20 MG/100 ML RTUINJ IV PRN (20:45)
[2020-04-24] MEDS: HEPARIN SODIUM,PORCINE/D5W 25,000 UNIT/250 ML RTUINJ IV PRN (20:49)
[2020-04-25] MEDS ORDERED: FUROSEMIDE INJ/PF 20 MG/2 ML SDV IV ONE (00:35)
[2020-04-25] MEDS: PROPOFOL 1,000 MG/100 ML INFUS..BTL IV PRN ×8 (00:58→22:10)
[2020-04-25] MEDS: FENTANYL CITRATE/PF 600 MCG/60 ML BAG IV PRN ×6 (01:10→20:25)
[2020-04-25] MEDS: INSULIN REG, HUMAN 100 UNIT/ML 3 ML VIAL (PYX) SUBCUT SCH ×5 (01:13→23:42)
[2020-04-25] MEDS: METOCLOPRAMIDE HCL INJ/PF 10 MG/2 ML SDV IV SCH ×5 (01:14→23:43)
[2020-04-25] MEDS: MILRINONE LACTATE/D5W 20 MG/100 ML RTUINJ IV PRN ×4 (01:49→21:30)
[2020-04-25] MEDS: ALBUTEROL SULFATE 0.083% NEB 2.5 MG/3 ML AMPUL NEB SCH ×4 (02:44→19:29)
[2020-04-25] MEDS: DEXTROSE 5%-WATER 250 ML with NOREPINEPHRINE BITARTRATE 4 MG IV PRN ×4 (03:15→17:27)
[2020-04-25] MEDS: DEXMEDETOMIDINE IN NS 400 MCG/100 ML RTUPB IV PRN ×6 (03:50→20:50)
[2020-04-25 05:20] LABS: ARTERIAL BLOOD BASE EXCESS -0.7 mmol/L; ARTERIAL BLOOD H2CO3 1.62 mmol/L (1.05-1.35); ARTERIAL BLOOD HCO3 26.2 mmol/L (20-24); ARTERIAL BLOOD O2 SATURATION 96.1 % (94-98); ARTERIAL BLOOD PCO2 53.7 mmHg (35-45); ARTERIAL BLOOD PH 7.31 (7.35-7.45); ARTERIAL BLOOD PO2 91.3 mmHg (80-100); ARTERIAL BLOOD TOTAL CO2 27.8 mmol/L (21-25)
[2020-04-25 05:21] LABS: ARTERIAL BLOOD FIO2 100%
[2020-04-25 05:40] LABS: ALKALINE PHOSPHATASE 118 U/L (38-126); ANION GAP 5 (5-19); ASPARTATE AMINO TRANSFERASE 116 U/L (14-36); BILIRUBIN,DIRECT 0.4 mg/dL (0.0-0.4); BILIRUBIN,TOTAL 0.7 mg/dL (0.2-1.3); BLOOD UREA NITROGEN 23 mg/dL (7-20); CALCIUM 9.2 mg/dL (8.4-10.2); CARBON DIOXIDE 31 mmol/L (22-30); CHLORIDE 103 mmol/L (98-107); GLUCOSE 190 mg/dL (75-110); PHOSPHORUS 4.3 mg/dL (2.5-4.5); POTASSIUM 3.8 mmol/L (3.6-5.0); TOTAL PROTEIN 6.5 g/dL (6.3-8.2); TRIGLYCERIDES 176 mg/dL (<150)
[2020-04-25 06:00] LABS: C-REACTIVE PROTEIN 154.6 mg/L (<10.0)
[2020-04-25] MEDS: BUDESONIDE NEB 0.25 MG/2 ML AMPUL NEB SCH ×2 (07:55→19:29)
[2020-04-25] MEDS: ASCORBIC ACID 500 MG TABLET NG SCH ×2 (11:02→17:26)
[2020-04-25] MEDS: METHYLPREDNISOLONE INJ 40 MG/1 ML SDV IV SCH (11:02)
[2020-04-25] MEDS: AMINO AC/PROTEIN HYDR/WHEY PRO 11 GM/45 ML PKT NG SCH ×3 (11:03→17:25)
[2020-04-25] MEDS: FAMOTIDINE INJ/PF 20 MG/2 ML SDV IV SCH ×2 (11:03→22:28)
[2020-04-25] MEDS: SENNOSIDES/DOCUSATE 8.6-50 MG 1 EACH TABLET NG SCH ×2 (11:03→17:26)
[2020-04-25] MEDS: ZINC SULFATE 220 MG CAPSULE NG SCH (11:03)
[2020-04-25] MEDS: CHOLECALCIFEROL (D3) 1,000 UNIT (25 MCG) TABLET NG SCH (11:03)
[2020-04-25 13:49] LABS: ARTERIAL BLOOD BASE EXCESS 1.2 mmol/L; ARTERIAL BLOOD FIO2 95%; ARTERIAL BLOOD H2CO3 1.47 mmol/L (1.05-1.35); ARTERIAL BLOOD O2 SATURATION 85.5 % (94-98); ARTERIAL BLOOD PH 7.36 (7.35-7.45); ARTERIAL BLOOD PO2 52.6 mmHg (80-100); ARTERIAL BLOOD TOTAL CO2 28.5 mmol/L (21-25)
[2020-04-25] MEDS: PHARMACY COMMUNICATION ORDER MC SCH (17:26)
[2020-04-25] MEDS ORDERED: POTASSIUM CHLORIDE 20 MEQ PACKET NG ONE (18:16)
[2020-04-25] MEDS ORDERED: FUROSEMIDE INJ/PF 40 MG/4 ML SDV IV ONE (18:16)
--- NOTE | 2020-04-25 18:17 | PDOC CRITICAL CARE PROG REPORT ---
General Date:: 04/25/20 ICU Day:: 26 Ventilator Day:: 26 Hospital Day:: 35 Resuscitation Status: Full Code Events in the past 12 to 24 Hours:: This 44-year-old -Citizen Of [place] female presented to [facility] emergency department on 03/21/2020 with complaints of possible presyncope versus syncope in addition to fever, chills, productive cough, dyspnea and exertional dyspnea. She has a history of psychiatric disorders and is known to be a difficult historian. Nonetheless, the patient also was known to have been diagnosed with COVID-19 pneumonia on 03/17/2020 and had subsequently been evaluated in the emergency department. She was apparently discharged home with prescriptions for azithromycin and other medications for symptomatic treatment. She returned with worsening shortness of breath and newly demonstrating supplemental oxygen requirement. 04/09-04/10: Remains intubated. Sedated with Precedex/Versed/fentanyl. On pressure control mode with peak and plateau pressures in the 40s. On insulin infusion for glucose control. On Glucerna + Prosource. KUB obtained showed a gasless abdomen, incongruent with physical exam (possibly due to morbid obesity). Still no BM. 04/11-: Had brisk diuresis with furosemide 40 mg IV single dose (2600 mL urine output), which resulted in a decrease in CVP. However, CVP is now back up to 910. On PRVC mode. ABG this a.m.: 7.46/46/53. Creatinine 0.6. WBC 17.3>11.4. Still no BM. On Versed/fentanyl/Precedex for sedation. Opens eyes to physical stimuli. Tube feeding currently on hold due to high residuals. Of note, even in the absence of tube feeding, the patient is having gastric residuals in the 200s. She does demonstrate spontaneous eye opening. She does not follow commands. 04/13-: Switched to BiVENT/APRV on 04/12/2020 (FiO2 80%, P high 17, T high 9.5 seconds, P low 3, T low 0.5 seconds). ABG this a.m.: 7.42/50/72. Off insulin infusion. Overnight, the patient had an episode of hypoglycemia (40) despite being on trickle tube feeds. Blood cultures (04/13) isolated gram-positive cocci in clusters. Tracheal aspirate (04/13) isolated Staphylococcus aureus. GPC is MSSA sens to rocephin. Still unsure if it's a contaminate. No progress made on ventilator. Changed back to PRVC on 04/16. Still 100% and PEEP 14. 04/18: CXR looks better. Will try weaning today. FiO2 first. 04/19-: Not able to wean yesterday. O2 saturations 95-96%. Will wean PEEP. Down to 10 in effort to lower PEEP for trach which I believe she will need. No weaning on drips yet. Will need trach and PEG. O2 saturations worse, in mid to low 80s on 100%. Talked with Dr. Owen regarding need for trach next week. 04/23: Remains intubated. On rocuronium, Versed and fentanyl infusions. FiO2 95%. PRVC. WBC 13.6. D-dimer 3.14. CRP 59.1. Magnesium 1.5. 04/24: Rocuronium was discontinued yesterday. The patient's ventilator mode was switched to BiVENT. Versed changed to propofol. Still on fentanyl. On BiVENT. [place] sedated. 04/25: Yesterday afternoon, she developed acute hypoxemic decompensation followed by profound hypotension. Clinically, this was highly suspicious for pulmonary embolism. She was started on heparin infusion. SVO2 was found to be 15%. She was started on dobutamine. Ventilator settings were changed. She is still on BiVENT/APRV but now with settings that closely mimic inverse I:E pressure control ventilation. FiO2 100%. P high 20, P low 10, T high 1.5, T low 0.5. Review of systems relevant to events:: Pulmonary Reason for ICU Addmission:: acute respiratory failure, covid -19 pneumonia, intubated. - Medications: Medications reviewed and adjusted accordingly: Yes Vasopressors:: None Sedation:: Propofol/Precedex/fentanyl Physical Exam Vital Signs: Temp Pulse Resp BP Pulse Ox 97.9 F 91 15 100/60 100 04/25/20 06:11 04/25/20 02:45 04/25/20 06:11 04/25/20 06:11 04/25/20 06:11 Intake & Output 04/24/20 04/25/20 04/26/20 06:59 06:59 06:59 Intake Total 1904 2336 Output Total 9050 2969 Balance -2281 -869 Weight 156.2 kg 154.9 kg Weight/Height Weight 154.9 kg Height 1.6 m General appearance: PRESENT: no acute distress, morbidly obese, well-developed, well-nourished Head exam: PRESENT: atraumatic, normocephalic Eye exam: PRESENT: conjunctiva pink, EOMI, PERRLA. ABSENT: scleral icterus Mouth exam: PRESENT: moist, tongue midline Neck exam: ABSENT: carotid bruit, JVD, lymphadenopathy, thyromegaly Respiratory exam: PRESENT: rales, symmetrical, tachypnea. ABSENT: rhonchi, wheezes Cardiovascular exam: PRESENT: RRR, tachycardia. ABSENT: diastolic murmur, rubs, systolic murmur Pulses: PRESENT: normal dorsalis pedis pul GI/Abdominal exam: PRESENT: normal bowel sounds, soft. ABSENT: distended, guarding, mass, organolmegaly, rebound, tenderness Gentrourinary exam: PRESENT: indwelling catheter Extremities exam: PRESENT: full ROM, pedal edema, +2 edema. ABSENT: calf tenderness, clubbing Musculoskeletal exam: PRESENT: normal inspection. ABSENT: deformity Neurological exam: PRESENT: altered, CN II-XII grossly intact. ABSENT: reflexes normal, motor sensory deficit Psychiatric exam: ABSENT: agitated, anxious Skin exam: PRESENT: dry, intact, warm. ABSENT: cyanosis, rash Laboratory/Radiographs Laboratory Results: 04/24/20 03:30 04/25/20 04:32 04/24/20 04/24/20 04/24/20 03:30 11:35 15:50 Carbonic Acid 1.57 H 1.88 H HCO3/H2CO3 Ratio 19:1 12:1 ABG pH 7.38 7.19 L* ABG pCO2 52.1 H 62.3 H ABG pO2 32.5 L* 16.1 L* ABG HCO3 30.0 H 23.1 ABG O2 Saturation 60.1 L 15.2 L ABG Base Excess 3.9 -5.3 FiO2 95% 100% Sodium Potassium Chloride Carbon Dioxide Anion Gap BUN Creatinine Est GFR ( Amer) Glucose Lactic Acid Calcium Phosphorus Magnesium 2.7 H D Total Bilirubin AST Alkaline Phosphatase C-Reactive Protein Total Protein Albumin Triglycerides 04/24/20 04/24/20 04/24/20 15:58 19:16 20:55 Carbonic Acid 1.56 H HCO3/H2CO3 Ratio 15:1 ABG pH 7.30 L ABG pCO2 51.9 H ABG pO2 36.7 L* ABG HCO3 24.8 H ABG O2 Saturation 63.3 L ABG Base Excess -1.9 FiO2 100% Sodium Potassium Chloride Carbon Dioxide Anion Gap BUN Creatinine Est GFR ( Amer) Glucose Lactic Acid 6.8 H 2.0 Calcium Phosphorus Magnesium Total Bilirubin AST Alkaline Phosphatase C-Reactive Protein Total Protein Albumin Triglycerides 04/25/20 04/25/20 04:32 04:32 Carbonic Acid 1.62 H HCO3/H2CO3 Ratio 16:1 ABG pH 7.31 L ABG pCO2 53.7 H ABG pO2 91.3 ABG HCO3 26.2 H ABG O2 Saturation 96.1 ABG Base Excess -0.7 FiO2 100% Sodium 139.3 Potassium 3.8 Chloride 103 Carbon Dioxide 31 H Anion Gap 5 BUN 23 H Creatinine 0.76 Est GFR ( Amer) > 60 Glucose 190 H Lactic Acid Calcium 9.2 Phosphorus 4.3 Magnesium 2.2 Total Bilirubin 0.7 AST 116 H Alkaline Phosphatase 118 C-Reactive Protein 154.6 H Total Protein 6.5 Albumin 3.0 L Triglycerides 176 H 04/23/20 08:50 Fernandez Catheter Urine Culture - Final C.albicans/C.dubliniensis 03/21/20 04/11/20 04/14/20 21:58 03:05 01:59 Troponin I < 0.012 NT-Pro-B Natriuret Pep 192 H 184 H 04/24/20 14:18 Troponin I 0.012 NT-Pro-B Natriuret Pep Impressions: Abdomen Ultrasound 04/10/20 00:00 IMPRESSION: NO EVIDENCE FOR ASCITES. KUB X-Ray 04/11/20 00:00 IMPRESSION: 1. Similar appearance of the abdomen with a relative paucity of bowel gas. 2. The tip of the enteric tube projects within the gastric lumen. Chest X-Ray 04/24/20 12:05 IMPRESSION: No significant change. No pneumothorax. All labs, radiographs, diagnostic studies and EKGs were personally reviewed: Yes In addition, reports of radiographic and diagnostic studies were read: Yes Assessment and Plan - Diagnosis (1) Acute respiratory failure with hypoxia and hypercapnia Is this a current diagnosis for this admission?: Yes Plan: * Diurese. * Continue BiVENT. P hi 20, P lo 3, T hi 4.5, T lo 0.5. * Follow up vent settings changes with ABG results. * Titrate sedation for RASS -2. * Propofol/Precedex for sedation. (2) Pneumonia due to COVID-19 virus Is this a current diagnosis for this admission?: Yes Plan: * Still on high support with essentially no change. Continue course. * COVID recheck (04/23) negative. (3) Staphylococcus aureus bacteremia Is this a current diagnosis for this admission?: Yes (4) Staphylococcal pneumonia Is this a current diagnosis for this admission?: Yes (5) Constipation Qualifiers: Constipation type: slow transit constipation Qualified Code(s): K59.01 - Slow transit constipation Is this a current diagnosis for this admission?: Yes (6) Leukocytosis Qualifiers: Leukocytosis type: unspecified Qualified Code(s): D72.829 - Elevated white blood cell count, unspecified Is this a current diagnosis for this admission?: Yes (7) Normocytic anemia Is this a current diagnosis for this admission?: Yes (8) Schizophrenia Qualifiers: Schizophrenia type: unspecified Qualified Code(s): F20.9 - Schizophrenia, unspecified Is this a current diagnosis for this admission?: Yes (9) Steroid-induced hyperglycemia Is this a current diagnosis for this admission?: Yes (10) Hypoglycemia Is this a current diagnosis for this admission?: Yes Critical Time Critical Time (minutes): 60 Level of Care: ICU -: 1. The care of a critical patient is a dynamic process. This note is a human resources hr representative synopsis but static in nature. The timeframe for treatments given in order is not necessarily the actual time these treatments may have been done. 2. This patient requires critical care secondary to ongoing requirements for therapy not offered or safe outside the critical care environment. Transfer to a lower level of care will result in altered life or limb morbidity and mortality. 3. Multidisciplinary rounds completed. 4. ABCDE bundle addressed.
[2020-04-25] MEDS: HEPARIN SODIUM,PORCINE/D5W 25,000 UNIT/250 ML RTUINJ IV PRN (20:05)
[2020-04-26] MEDS: FENTANYL CITRATE/PF 600 MCG/60 ML BAG IV PRN ×6 (00:30→20:20)
[2020-04-26] MEDS: DEXMEDETOMIDINE IN NS 400 MCG/100 ML RTUPB IV PRN ×6 (01:28→21:36)
[2020-04-26] MEDS: PROPOFOL 1,000 MG/100 ML INFUS..BTL IV PRN ×8 (01:28→23:11)
[2020-04-26] MEDS: ALBUTEROL SULFATE 0.083% NEB 2.5 MG/3 ML AMPUL NEB SCH ×4 (01:44→19:51)
[2020-04-26 04:25] LABS: ARTERIAL BLOOD BASE EXCESS 2.1 mmol/L; ARTERIAL BLOOD FIO2 100%; ARTERIAL BLOOD H2CO3 1.54 mmol/L (1.05-1.35); ARTERIAL BLOOD HCO3 28.1 mmol/L (20-24); ARTERIAL BLOOD O2 SATURATION 92.9 % (94-98); ARTERIAL BLOOD PCO2 51.1 mmHg (35-45); ARTERIAL BLOOD PH 7.36 (7.35-7.45); ARTERIAL BLOOD PO2 68.9 mmHg (80-100); ARTERIAL BLOOD TOTAL CO2 29.7 mmol/L (21-25)
[2020-04-26 04:55] LABS: BLOOD UREA NITROGEN 26 mg/dL (7-20); CALCIUM 9.1 mg/dL (8.4-10.2); CARBON DIOXIDE 33 mmol/L (22-30); GLUCOSE 176 mg/dL (75-110); PHOSPHORUS 3.9 mg/dL (2.5-4.5); POTASSIUM 3.9 mmol/L (3.6-5.0)
[2020-04-26 05:22] LABS: CHLORIDE 101 mmol/L (98-107)
[2020-04-26] MEDS: MILRINONE LACTATE/D5W 20 MG/100 ML RTUINJ IV PRN ×3 (05:22→21:20)
[2020-04-26 05:25] LABS: ANION GAP 4 (5-19)
[2020-04-26] MEDS: METOCLOPRAMIDE HCL INJ/PF 10 MG/2 ML SDV IV SCH ×3 (05:34→17:32)
[2020-04-26] MEDS: INSULIN REG, HUMAN 100 UNIT/ML 3 ML VIAL (PYX) SUBCUT SCH ×3 (06:02→17:33)
[2020-04-26] MEDS: BUDESONIDE NEB 0.25 MG/2 ML AMPUL NEB SCH ×2 (08:05→19:50)
[2020-04-26] MEDS: FAMOTIDINE INJ/PF 20 MG/2 ML SDV IV SCH ×2 (09:07→21:34)
[2020-04-26] MEDS: METHYLPREDNISOLONE INJ 40 MG/1 ML SDV IV SCH (09:07)
[2020-04-26] MEDS: CHOLECALCIFEROL (D3) 1,000 UNIT (25 MCG) TABLET NG SCH (09:10)
[2020-04-26] MEDS: SENNOSIDES/DOCUSATE 8.6-50 MG 1 EACH TABLET NG SCH ×2 (09:10→17:32)
[2020-04-26] MEDS: ZINC SULFATE 220 MG CAPSULE NG SCH (09:10)
[2020-04-26] MEDS: ASCORBIC ACID 500 MG TABLET NG SCH ×2 (09:10→17:32)
[2020-04-26] MEDS: AMINO AC/PROTEIN HYDR/WHEY PRO 11 GM/45 ML PKT NG SCH ×3 (09:15→17:32)
[2020-04-26] MEDS ORDERED: POTASSIUM CHLORIDE 20 MEQ PACKET PO ONE (11:59)
[2020-04-26] MEDS: FUROSEMIDE INJ/PF 40 MG/4 ML SDV IV SCH ×2 (12:37→21:33)
[2020-04-26] MEDS: HEPARIN SODIUM,PORCINE/D5W 25,000 UNIT/250 ML RTUINJ IV PRN (13:52)
[2020-04-26 15:48] LABS: ARTERIAL BLOOD BASE EXCESS 1.7 mmol/L; ARTERIAL BLOOD H2CO3 1.84 mmol/L (1.05-1.35); ARTERIAL BLOOD HCO3 28.8 mmol/L (20-24); ARTERIAL BLOOD O2 SATURATION 89.6 % (94-98); ARTERIAL BLOOD PCO2 61.2 mmHg (35-45); ARTERIAL BLOOD PH 7.29 (7.35-7.45); ARTERIAL BLOOD PO2 64.4 mmHg (80-100); ARTERIAL BLOOD TOTAL CO2 30.7 mmol/L (21-25)
[2020-04-26 15:49] LABS: ARTERIAL BLOOD FIO2 100%
[2020-04-26] MEDS: DEXTROSE 5%-WATER 250 ML with NOREPINEPHRINE BITARTRATE 4 MG IV PRN ×2 (18:40)
--- NOTE | 2020-04-26 19:15 | PDOC CRITICAL CARE PROG REPORT ---
General Date:: 04/26/20 ICU Day:: 27 Ventilator Day:: 27 Hospital Day:: 36 Resuscitation Status: Full Code Events in the past 12 to 24 Hours:: This 44-year-old -[place] female presented to [facility] emergency department on 03/21/2020 with complaints of possible presyncope versus syncope in addition to fever, chills, productive cough, dyspnea and exertional dyspnea. She has a history of psychiatric disorders and is known to be a difficult historian. Nonetheless, the patient also was known to have been diagnosed with COVID-19 pneumonia on 03/17/2020 and had subsequently been evaluated in the emergency department. She was apparently discharged home with prescriptions for azithromycin and other medications for symptomatic treatment. She returned with worsening shortness of breath and newly demonstrating supplemental oxygen requirement. 04/09-04/10: Remains intubated. Sedated with Precedex/Versed/fentanyl. On pressure control mode with peak and plateau pressures in the 40s. On insulin infusion for glucose control. On Glucerna + Prosource. KUB obtained showed a gasless abdomen, incongruent with physical exam (possibly due to morbid obesity). Still no BM. 04/11-: Had brisk diuresis with furosemide 40 mg IV single dose (2600 mL urine output), which resulted in a decrease in CVP. However, CVP is now back up to 910. On PRVC mode. ABG this a.m.: 7.46/46/53. Creatinine 0.6. WBC 17.3>11.4. Still no BM. On Versed/fentanyl/Precedex for sedation. Opens eyes to physical stimuli. Tube feeding currently on hold due to high residuals. Of note, even in the absence of tube feeding, the patient is having gastric residuals in the 200s. She does demonstrate spontaneous eye opening. She does not follow commands. 04/13-: Switched to BiVENT/APRV on 04/12/2020 (FiO2 80%, P high 17, T high 9.5 seconds, P low 3, T low 0.5 seconds). ABG this a.m.: 7.42/50/72. Off insulin infusion. Overnight, the patient had an episode of hypoglycemia (40) despite being on trickle tube feeds. Blood cultures (04/13) isolated gram-positive cocci in clusters. Tracheal aspirate (04/13) isolated Staphylococcus aureus. GPC is MSSA sens to rocephin. Still unsure if it's a contaminate. No progress made on ventilator. Changed back to PRVC on 04/16. Still 100% and PEEP 14. 04/18: CXR looks better. Will try weaning today. FiO2 first. 04/19-: Not able to wean yesterday. O2 saturations 95-96%. Will wean PEEP. Down to 10 in effort to lower PEEP for trach which I believe she will need. No weaning on drips yet. Will need trach and PEG. O2 saturations worse, in mid to low 80s on 100%. Talked with Dr. Owen regarding need for trach next week. 04/23: Remains intubated. On rocuronium, Versed and fentanyl infusions. FiO2 95%. PRVC. WBC 13.6. D-dimer 3.14. CRP 59.1. Magnesium 1.5. 04/24: Rocuronium was discontinued yesterday. The patient's ventilator mode was switched to BiVENT. Versed changed to propofol. Still on fentanyl. On BiVENT. [place] sedated. 04/25: Yesterday afternoon, she developed acute hypoxemic decompensation followed by profound hypotension. Clinically, this was highly suspicious for pulmonary embolism. She was started on heparin infusion. SVO2 was found to be 15%. She was started on dobutamine. Ventilator settings were changed. She is still on BiVENT/APRV but now with settings that closely mimic inverse I:E pressure control ventilation. FiO2 100%. P high 20, P low 10, T high 1.5, T low 0.5. 04/26: COVID-19 (HUGH from 04/23) finally returned to negative result. Dobutamine changed to milrinone yesterday. Still on BiVENT/APRV but has been tolerating lower pressures in longer T high times. Had an episode of oxygen desaturation again this morning. Clinically, it appears that she is having increased secretions from the airway, possibly with mucous plugging. Settings were changed subsequent to oxygen desaturation: P high 30, P low 10, T high 1.5, T low 0.5. ABG this a.m.: 7.36/51/69. Diuresing, -869 mL yesterday. proBNP 5880. BM +. Review of systems relevant to events:: Pulmonary Reason for ICU Addmission:: acute respiratory failure, covid -19 pneumonia, intubated. - Medications: Medications reviewed and adjusted accordingly: Yes Vasopressors:: None Sedation:: Propofol/Precedex/fentanyl Physical Exam Vital Signs: Temp Pulse Resp BP Pulse Ox 99.1 F 91 17 90/59 L 88 L 04/26/20 06:35 04/26/20 07:00 04/26/20 06:35 04/26/20 06:35 04/26/20 06:35 Intake & Output 04/25/20 04/26/20 04/27/20 06:59 06:59 06:59 Intake Total 2336 2425 Output Total 3205 4235 Balance -869 -1810 Weight 154.9 kg 154.8 kg Weight/Height Weight 154.8 kg Height 1.6 m General appearance: PRESENT: no acute distress, morbidly obese, well-developed, well-nourished Head exam: PRESENT: atraumatic, normocephalic Mouth exam: PRESENT: moist, tongue midline Neck exam: ABSENT: carotid bruit, JVD, lymphadenopathy, thyromegaly Respiratory exam: PRESENT: rales, rhonchi, symmetrical, tachypnea. ABSENT: wheezes Cardiovascular exam: PRESENT: RRR, tachycardia. ABSENT: diastolic murmur, rubs, systolic murmur Pulses: PRESENT: normal dorsalis pedis pul GI/Abdominal exam: PRESENT: normal bowel sounds, soft. ABSENT: distended, guarding, mass, organolmegaly, rebound, tenderness Gentrourinary exam: PRESENT: indwelling catheter Extremities exam: PRESENT: full ROM, pedal edema. ABSENT: calf tenderness, clubbing Musculoskeletal exam: PRESENT: normal inspection. ABSENT: deformity Neurological exam: PRESENT: awake, CN II-XII grossly intact. ABSENT: reflexes normal Psychiatric exam: ABSENT: agitated, anxious Skin exam: PRESENT: dry, intact, warm. ABSENT: cyanosis, rash Tubes/Lines: PRESENT: Endotracheal Tube - 04/01, Central Line - Left IJ 04/01 Laboratory/Radiographs Laboratory Results: 04/24/20 03:30 04/26/20 03:53 04/25/20 04/25/20 04/26/20 09:01 13:24 03:53 Carbonic Acid 1.47 H HCO3/H2CO3 Ratio 18:1 ABG pH 7.36 ABG pCO2 49.0 H ABG pO2 52.6 L ABG HCO3 27.0 H ABG O2 Saturation 85.5 L ABG Base Excess 1.2 FiO2 95% Sodium 137.9 Potassium 3.9 Chloride 101 Carbon Dioxide 33 H Anion Gap 4 L BUN 26 H Creatinine 0.66 Est GFR ( Amer) > 60 Glucose 176 H Calcium 9.1 Phosphorus 3.9 Magnesium 2.0 C-Reactive Protein 156.6 H 04/26/20 03:53 Carbonic Acid 1.54 H HCO3/H2CO3 Ratio 18:1 ABG pH 7.36 ABG pCO2 51.1 H ABG pO2 68.9 L ABG HCO3 28.1 H ABG O2 Saturation 92.9 L ABG Base Excess 2.1 FiO2 100% Sodium Potassium Chloride Carbon Dioxide Anion Gap BUN Creatinine Est GFR ( Amer) Glucose Calcium Phosphorus Magnesium C-Reactive Protein 03/21/20 04/11/20 04/14/20 21:58 03:05 01:59 Troponin I < 0.012 NT-Pro-B Natriuret Pep 192 H 184 H 04/24/20 04/25/20 04/26/20 14:18 09:01 03:53 Troponin I 0.012 NT-Pro-B Natriuret Pep 7620 H 5880 H Impressions: Abdomen Ultrasound 04/10/20 00:00 IMPRESSION: NO EVIDENCE FOR ASCITES. KUB X-Ray 04/11/20 00:00 IMPRESSION: 1. Similar appearance of the abdomen with a relative paucity of bowel gas. 2. The tip of the enteric tube projects within the gastric lumen. Chest X-Ray 04/24/20 12:05 IMPRESSION: No significant change. No pneumothorax. All labs, radiographs, diagnostic studies and EKGs were personally reviewed: Yes In addition, reports of radiographic and diagnostic studies were read: Yes Assessment and Plan - Diagnosis (1) Acute respiratory failure with hypoxia and hypercapnia Is this a current diagnosis for this admission?: Yes Plan: * Diurese. * Continue BiVENT. P hi 30, P lo 10, T hi 1.5, T lo 0.5. * Follow up vent settings changes with ABG results. * Titrate sedation for RASS -2. * Propofol/Precedex for sedation. (2) Pneumonia due to COVID-19 virus Is this a current diagnosis for this admission?: Yes Plan: * Still on high support with essentially no change. Continue course. * COVID recheck (04/23) negative. (3) Constipation Qualifiers: Constipation type: slow transit constipation Qualified Code(s): K59.01 - Slow transit constipation Is this a current diagnosis for this admission?: Yes (4) Leukocytosis Qualifiers: Leukocytosis type: unspecified Qualified Code(s): D72.829 - Elevated white blood cell count, unspecified Is this a current diagnosis for this admission?: Yes (5) Normocytic anemia Is this a current diagnosis for this admission?: Yes (6) Schizophrenia Qualifiers: Schizophrenia type: unspecified Qualified Code(s): F20.9 - Schizophrenia, unspecified Is this a current diagnosis for this admission?: Yes (7) Steroid-induced hyperglycemia Is this a current diagnosis for this admission?: Yes (8) Hypoglycemia Is this a current diagnosis for this admission?: Yes (9) Staphylococcus aureus bacteremia Is this a current diagnosis for this admission?: Yes Plan: * Treated with vancomycin followed by Rocephin (after identification is MSSA). (10) Staphylococcal pneumonia Is this a current diagnosis for this admission?: Yes Plan: * MSSA based on culture results. Started vancomycin (04/15) and transitioned to Rocephin. Critical Time Critical Time (minutes): 60 Level of Care: ICU -: 1. The care of a critical patient is a dynamic process. This note is a outbound call center representative synopsis but static in nature. The timeframe for treatments given in order is not necessarily the actual time these treatments may have been done. 2. This patient requires critical care secondary to ongoing requirements for therapy not offered or safe outside the critical care environment. Transfer to a lower level of care will result in altered life or limb morbidity and mortality. 3. Multidisciplinary rounds completed. 4. ABCDE bundle addressed.
[2020-04-26 21:01] LABS: ARTERIAL BLOOD BASE EXCESS 2.6 mmol/L; ARTERIAL BLOOD H2CO3 1.81 mmol/L (1.05-1.35); ARTERIAL BLOOD HCO3 29.4 mmol/L (20-24); ARTERIAL BLOOD O2 SATURATION 91.8 % (94-98); ARTERIAL BLOOD PCO2 60.2 mmHg (35-45); ARTERIAL BLOOD PH 7.31 (7.35-7.45); ARTERIAL BLOOD PO2 69.3 mmHg (80-100); ARTERIAL BLOOD TOTAL CO2 31.3 mmol/L (21-25)
[2020-04-26 21:03] LABS: ARTERIAL BLOOD FIO2 100%
[2020-04-27] MEDS: FENTANYL CITRATE/PF 600 MCG/60 ML BAG IV PRN ×7 (00:15→23:20)
[2020-04-27] MEDS: INSULIN REG, HUMAN 100 UNIT/ML 3 ML VIAL (PYX) SUBCUT SCH ×5 (00:43→23:42)
[2020-04-27] MEDS: METOCLOPRAMIDE HCL INJ/PF 10 MG/2 ML SDV IV SCH ×5 (00:44→23:42)
[2020-04-27] MEDS: DEXMEDETOMIDINE IN NS 400 MCG/100 ML RTUPB IV PRN ×9 (01:42→23:45)
[2020-04-27] MEDS: ALBUTEROL SULFATE 0.083% NEB 2.5 MG/3 ML AMPUL NEB SCH ×4 (01:47→20:56)
[2020-04-27] MEDS: PROPOFOL 1,000 MG/100 ML INFUS..BTL IV PRN ×7 (02:32→23:20)
[2020-04-27] MEDS: MILRINONE LACTATE/D5W 20 MG/100 ML RTUINJ IV PRN ×4 (03:02→20:15)
[2020-04-27 05:12] LABS: ARTERIAL BLOOD H2CO3 1.93 mmol/L (1.05-1.35); ARTERIAL BLOOD HCO3 29.4 mmol/L (20-24); ARTERIAL BLOOD O2 SATURATION 93.5 % (94-98); ARTERIAL BLOOD PCO2 64.2 mmHg (35-45); ARTERIAL BLOOD PH 7.28 (7.35-7.45); ARTERIAL BLOOD PO2 77.6 mmHg (80-100); ARTERIAL BLOOD TOTAL CO2 31.4 mmol/L (21-25)
[2020-04-27 05:19] LABS: ARTERIAL BLOOD FIO2 100%
[2020-04-27 05:20] LABS: PARTIAL THROMBOPLASTIN TIME 66.5 SEC (23.5-35.8)
[2020-04-27 05:21] LABS: D-DIMER 2.04 ug/mL (0.00-0.50)
[2020-04-27 05:23] LABS: HEMATOCRIT 23.9 % (36.0-47.0); MEAN CORPUSCULAR HEMOGLOBIN 23.7 pg (27.0-33.4); MEAN CORPUSCULAR HGB CONC 31.1 g/dL (32.0-36.0); MEAN CORPUSCULAR VOLUME 76 fl (80-97); PLATELET COUNT 235 10^3/uL (150-450); RED BLOOD COUNT 3.13 10^6/uL (3.72-5.28); RED CELL DISTRIBUTION WIDTH 26.6 % (11.5-14.0); WHITE BLOOD COUNT 25.8 10^3/uL (4.0-10.5)
[2020-04-27 05:26] LABS: HEMOGLOBIN 7.4 g/dL (12.0-15.5)
[2020-04-27 05:37] LABS: ANION GAP 8 (5-19); BLOOD UREA NITROGEN 28 mg/dL (7-20); CARBON DIOXIDE 30 mmol/L (22-30); CHLORIDE 98 mmol/L (98-107); GLUCOSE 179 mg/dL (75-110); PHOSPHORUS 4.2 mg/dL (2.5-4.5); POTASSIUM 4.2 mmol/L (3.6-5.0)
[2020-04-27 06:24] LABS: C-REACTIVE PROTEIN 200.2 mg/L (<10.0)
[2020-04-27] MEDS: BUDESONIDE NEB 0.25 MG/2 ML AMPUL NEB SCH ×2 (07:51→20:56)
[2020-04-27 09:36] LABS: ARTERIAL BLOOD BASE EXCESS 6.4 mmol/L; ARTERIAL BLOOD H2CO3 1.92 mmol/L (1.05-1.35); ARTERIAL BLOOD HCO3 33.2 mmol/L (20-24); ARTERIAL BLOOD O2 SATURATION 97.7 % (94-98); ARTERIAL BLOOD PCO2 63.7 mmHg (35-45); ARTERIAL BLOOD PH 7.34 (7.35-7.45); ARTERIAL BLOOD PO2 112.9 mmHg (80-100); ARTERIAL BLOOD TOTAL CO2 35.2 mmol/L (21-25)
[2020-04-27 09:41] LABS: ARTERIAL BLOOD FIO2 100%
[2020-04-27] MEDS: FUROSEMIDE INJ/PF 40 MG/4 ML SDV IV SCH ×3 (11:08→21:48)
[2020-04-27] MEDS: HEPARIN SODIUM,PORCINE/D5W 25,000 UNIT/250 ML RTUINJ IV PRN (11:09)
[2020-04-27] MEDS: ASCORBIC ACID 500 MG TABLET NG SCH ×2 (11:27→17:20)
[2020-04-27] MEDS: SENNOSIDES/DOCUSATE 8.6-50 MG 1 EACH TABLET NG SCH ×2 (11:27→17:20)
[2020-04-27] MEDS: ZINC SULFATE 220 MG CAPSULE NG SCH (11:27)
[2020-04-27] MEDS: FAMOTIDINE INJ/PF 20 MG/2 ML SDV IV SCH ×2 (11:28→21:48)
[2020-04-27] MEDS: CHOLECALCIFEROL (D3) 1,000 UNIT (25 MCG) TABLET NG SCH (11:28)
[2020-04-27] MEDS: METHYLPREDNISOLONE INJ 40 MG/1 ML SDV IV SCH (11:28)
[2020-04-27] MEDS: AMINO AC/PROTEIN HYDR/WHEY PRO 11 GM/45 ML PKT NG SCH ×3 (11:41→17:20)
[2020-04-27] MEDS: DEXTROSE 5%-WATER 250 ML with NOREPINEPHRINE BITARTRATE 4 MG IV PRN ×2 (11:48)
--- NOTE | 2020-04-27 17:12 | PDOC CRITICAL CARE PROG REPORT ---
General Date:: 04/27/20 ICU Day:: 28 Ventilator Day:: 28 Hospital Day:: 37 Resuscitation Status: Full Code Events in the past 12 to 24 Hours:: This 44-year-old -Viet[place] female presented to [facility] emergency department on 03/21/2020 with complaints of possible presyncope versus syncope in addition to fever, chills, productive cough, dyspnea and exertional dyspnea. She has a history of psychiatric disorders and is known to be a difficult historian. Nonetheless, the patient also was known to have been diagnosed with COVID-19 pneumonia on 03/17/2020 and had subsequently been evaluated in the emergency department. She was apparently discharged home with prescriptions for azithromycin and other medications for symptomatic treatment. She returned with worsening shortness of breath and newly demonstrating supplemental oxygen requirement. 04/09-04/10: Remains intubated. Sedated with Precedex/Versed/fentanyl. On pressure control mode with peak and plateau pressures in the 40s. On insulin infusion for glucose control. On Glucerna + Prosource. KUB obtained showed a gasless abdomen, incongruent with physical exam (possibly due to morbid obesity). Still no BM. 04/11-: Had brisk diuresis with furosemide 40 mg IV single dose (2600 mL urine output), which resulted in a decrease in CVP. However, CVP is now back up to 910. On PRVC mode. ABG this a.m.: 7.46/46/53. Creatinine 0.6. WBC 17.3>11.4. Still no BM. On Versed/fentanyl/Precedex for sedation. Opens eyes to physical stimuli. Tube feeding currently on hold due to high residuals. Of note, even in the absence of tube feeding, the patient is having gastric residuals in the 200s. She does demonstrate spontaneous eye opening. She does not follow commands. 04/13-: Switched to BiVENT/APRV on 04/12/2020 (FiO2 80%, P high 17, T high 9.5 seconds, P low 3, T low 0.5 seconds). ABG this a.m.: 7.42/50/72. Off insulin infusion. Overnight, the patient had an episode of hypoglycemia (40) despite being on trickle tube feeds. Blood cultures (04/13) isolated gram-positive cocci in clusters. Tracheal aspirate (04/13) isolated Staphylococcus aureus. GPC is MSSA sens to rocephin. Still unsure if it's a contaminate. No progress made on ventilator. Changed back to PRVC on 04/16. Still 100% and PEEP 14. 04/18: CXR looks better. Will try weaning today. FiO2 first. 04/19-: Not able to wean yesterday. O2 saturations 95-96%. Will wean PEEP. Down to 10 in effort to lower PEEP for trach which I believe she will need. No weaning on drips yet. Will need trach and PEG. O2 saturations worse, in mid to low 80s on 100%. Talked with Dr. Owen regarding need for trach next week. 04/23: Remains intubated. On rocuronium, Versed and fentanyl infusions. FiO2 95%. PRVC. WBC 13.6. D-dimer 3.14. CRP 59.1. Magnesium 1.5. 04/24: Rocuronium was discontinued yesterday. The patient's ventilator mode was switched to BiVENT. Versed changed to propofol. Still on fentanyl. On BiVENT. [place] sedated. 04/25: Yesterday afternoon, she developed acute hypoxemic decompensation followed by profound hypotension. Clinically, this was highly suspicious for pulmonary embolism. She was started on heparin infusion. SVO2 was found to be 15%. She was started on dobutamine. Ventilator settings were changed. She is still on BiVENT/APRV but now with settings that closely mimic inverse I:E pressure control ventilation. FiO2 100%. P high 20, P low 10, T high 1.5, T low 0.5. 04/26: COVID-19 (HUGH from 04/23) finally returned to negative result. Dobutamine changed to milrinone yesterday. Still on BiVENT/APRV but has been tolerating lower pressures in longer T high times. Had an episode of oxygen desaturation again this morning. Clinically, it appears that she is having increased secretions from the airway, possibly with mucous plugging. Settings were changed subsequent to oxygen desaturation: P high 30, P low 10, T high 1.5, T low 0.5. ABG this a.m.: 7.36/51/69. Diuresing, -869 mL yesterday. proBNP 5880. BM +. 04/27: [place] sedated, synchronous with ventilator. BG this a.m. 7.28/64/78. WBC 25.8 this AM. CRP 200. D-dimer 2.04. Review of systems relevant to events:: Pulmonary Reason for ICU Addmission:: acute respiratory failure, covid -19 pneumonia, intubated. - Medications: Medications reviewed and adjusted accordingly: Yes Vasopressors:: On Levophed, Primacor Sedation:: Propofol/Precedex/fentanyl Physical Exam Vital Signs: Temp Pulse Resp BP Pulse Ox 97.7 F 82 15 132/58 H 96 04/27/20 15:27 04/27/20 14:00 04/27/20 15:27 04/27/20 15:27 04/27/20 15:27 Intake & Output 04/26/20 04/27/20 04/28/20 06:59 06:59 06:59 Intake Total 2425 2454 1863 Output Total 4235 3505 1335 Balance -1810 -1051 528 Weight 154.8 kg 150.6 kg Weight/Height Weight 150.6 kg Height 1.6 m General appearance: PRESENT: no acute distress, well-developed, well-nourished Head exam: PRESENT: atraumatic, normocephalic Eye exam: PRESENT: conjunctiva pink, EOMI, PERRLA. ABSENT: scleral icterus Mouth exam: PRESENT: moist, tongue midline Neck exam: ABSENT: carotid bruit, JVD, lymphadenopathy, thyromegaly Respiratory exam: PRESENT: rales, symmetrical, tachypnea. ABSENT: rhonchi, wheezes Cardiovascular exam: PRESENT: RRR, tachycardia. ABSENT: diastolic murmur, rubs, systolic murmur Pulses: PRESENT: normal dorsalis pedis pul GI/Abdominal exam: PRESENT: normal bowel sounds, soft. ABSENT: distended, guarding, mass, organolmegaly, rebound, tenderness Gentrourinary exam: PRESENT: indwelling catheter Extremities exam: PRESENT: full ROM, pedal edema, +2 edema. ABSENT: calf tenderness, clubbing Neurological exam: PRESENT: altered, CN II-XII grossly intact. ABSENT: reflexes normal Psychiatric exam: ABSENT: agitated, anxious Skin exam: PRESENT: dry, intact, warm. ABSENT: cyanosis, rash Tubes/Lines: PRESENT: Endotracheal Tube, Central Line, Nasogastic Tube Laboratory/Radiographs Laboratory Results: 04/27/20 04:50 04/27/20 04:50 04/26/20 04/27/20 04/27/20 20:35 04:50 04:50 WBC RBC Hgb Hct MCV MCH MCHC RDW Plt Count Carbonic Acid 1.81 H 1.93 H HCO3/H2CO3 Ratio 16:1 15:1 ABG pH 7.31 L 7.28 L ABG pCO2 60.2 H 64.2 H ABG pO2 69.3 L 77.6 L ABG HCO3 29.4 H 29.4 H ABG O2 Saturation 91.8 L 93.5 L ABG Base Excess 2.6 2.0 FiO2 100% 100% Sodium 136.3 L Potassium 4.2 Chloride 98 Carbon Dioxide 30 Anion Gap 8 BUN 28 H Creatinine 0.59 Est GFR ( Amer) > 60 Glucose 179 H Calcium 9.0 Phosphorus 4.2 Magnesium 1.7 C-Reactive Protein 200.2 H 04/27/20 04/27/20 04:50 09:15 WBC 25.8 H RBC 3.13 L Hgb 7.4 L Hct 23.9 L MCV 76 L MCH 23.7 L MCHC 31.1 L RDW 26.6 H Plt Count 235 Carbonic Acid 1.92 H HCO3/H2CO3 Ratio 17:1 ABG pH 7.34 L ABG pCO2 63.7 H ABG pO2 112.9 H ABG HCO3 33.2 H ABG O2 Saturation 97.7 ABG Base Excess 6.4 FiO2 100% Sodium Potassium Chloride Carbon Dioxide Anion Gap BUN Creatinine Est GFR ( Amer) Glucose Calcium Phosphorus Magnesium C-Reactive Protein 03/21/20 04/11/20 04/14/20 21:58 03:05 01:59 Troponin I < 0.012 NT-Pro-B Natriuret Pep 192 H 184 H 04/24/20 04/25/20 04/26/20 14:18 09:01 03:53 Troponin I 0.012 NT-Pro-B Natriuret Pep 7620 H 5880 H Impressions: Abdomen Ultrasound 04/10/20 00:00 IMPRESSION: NO EVIDENCE FOR ASCITES. KUB X-Ray 04/11/20 00:00 IMPRESSION: 1. Similar appearance of the abdomen with a relative paucity of bowel gas. 2. The tip of the enteric tube projects within the gastric lumen. Chest X-Ray 04/24/20 12:05 IMPRESSION: No significant change. No pneumothorax. All labs, radiographs, diagnostic studies and EKGs were personally reviewed: Yes In addition, reports of radiographic and diagnostic studies were read: Yes Assessment and Plan - Diagnosis (1) Acute respiratory failure with hypoxia and hypercapnia Is this a current diagnosis for this admission?: Yes Plan: * CVP 23. Diurese. * Continue BiVENT. P hi 25, P lo 3, T hi 1.5, T lo 0.5 + PSV 10. * Follow up vent settings changes with ABG results. * Titrate sedation for RASS -2. * Propofol/Precedex for sedation. (2) Pneumonia due to COVID-19 virus Is this a current diagnosis for this admission?: Yes Plan: * Still on high support with essentially no change. Continue course. * COVID recheck (04/23) negative. (3) Constipation Qualifiers: Constipation type: slow transit constipation Qualified Code(s): K59.01 - Slow transit constipation Is this a current diagnosis for this admission?: Yes (4) Leukocytosis Qualifiers: Leukocytosis type: unspecified Qualified Code(s): D72.829 - Elevated white blood cell count, unspecified Is this a current diagnosis for this admission?: Yes Plan: * Panculture * Currently, there is no other compelling clinical signs or symptoms of inf ection. Check CBC with differential in AM. * This may be due to prolonged steroid treatment. (5) Normocytic anemia Is this a current diagnosis for this admission?: Yes (6) Schizophrenia Qualifiers: Schizophrenia type: unspecified Qualified Code(s): F20.9 - Schizophrenia, unspecified Is this a current diagnosis for this admission?: Yes (7) Steroid-induced hyperglycemia Is this a current diagnosis for this admission?: Yes (8) Hypoglycemia Is this a current diagnosis for this admission?: Yes (9) Staphylococcus aureus bacteremia Is this a current diagnosis for this admission?: Yes (10) Staphylococcal pneumonia Is this a current diagnosis for this admission?: Yes Critical Time Critical Time (minutes): 60 Level of Care: ICU -: 1. The care of a critical patient is a dynamic process. This note is a inventory representative synopsis but static in nature. The timeframe for treatments given in order is not necessarily the actual time these treatments may have been done. 2. This patient requires critical care secondary to ongoing requirements for therapy not offered or safe outside the critical care environment. Transfer to a lower level of care will result in altered life or limb morbidity and mortality. 3. Multidisciplinary rounds completed. 4. ABCDE bundle addressed.
[2020-04-28] MEDS: PROPOFOL 1,000 MG/100 ML INFUS..BTL IV PRN ×6 (01:27→19:40)
[2020-04-28] MEDS: MILRINONE LACTATE/D5W 20 MG/100 ML RTUINJ IV PRN ×3 (01:59→10:43)
[2020-04-28] MEDS: DEXMEDETOMIDINE IN NS 400 MCG/100 ML RTUPB IV PRN ×12 (02:00→22:38)
[2020-04-28] MEDS: ALBUTEROL SULFATE 0.083% NEB 2.5 MG/3 ML AMPUL NEB SCH ×3 (02:50→14:40)
[2020-04-28] MEDS: FENTANYL CITRATE/PF 600 MCG/60 ML BAG IV PRN ×6 (03:15→22:04)
[2020-04-28 04:38] LABS: ARTERIAL BLOOD H2CO3 1.55 mmol/L (1.05-1.35); ARTERIAL BLOOD HCO3 28.8 mmol/L (20-24); ARTERIAL BLOOD O2 SATURATION 87.2 % (94-98); ARTERIAL BLOOD PCO2 51.4 mmHg (35-45); ARTERIAL BLOOD PH 7.37 (7.35-7.45); ARTERIAL BLOOD TOTAL CO2 30.4 mmol/L (21-25)
[2020-04-28 04:39] LABS: ARTERIAL BLOOD FIO2 90%
[2020-04-28 04:44] LABS: HEMATOCRIT 20.2 % (36.0-47.0); MEAN CORPUSCULAR HEMOGLOBIN 24.4 pg (27.0-33.4); MEAN CORPUSCULAR HGB CONC 32.4 g/dL (32.0-36.0); MEAN CORPUSCULAR VOLUME 75 fl (80-97); PLATELET COUNT 171 10^3/uL (150-450); RED BLOOD COUNT 2.69 10^6/uL (3.72-5.28); RED CELL DISTRIBUTION WIDTH 26.7 % (11.5-14.0); WHITE BLOOD COUNT 14.8 10^3/uL (4.0-10.5)
[2020-04-28 04:58] LABS: HEMOGLOBIN 6.6 g/dL (12.0-15.5)
[2020-04-28 05:15] LABS: ANION GAP 8 (5-19); BLOOD UREA NITROGEN 30 mg/dL (7-20); CALCIUM 8.9 mg/dL (8.4-10.2); CARBON DIOXIDE 30 mmol/L (22-30); CHLORIDE 98 mmol/L (98-107); GLUCOSE 210 mg/dL (75-110); TRIGLYCERIDES 183 mg/dL (<150)
[2020-04-28] MEDS: HEPARIN SODIUM,PORCINE/D5W 25,000 UNIT/250 ML RTUINJ IV PRN ×2 (05:46→21:21)
[2020-04-28] MEDS: METOCLOPRAMIDE HCL INJ/PF 10 MG/2 ML SDV IV SCH ×4 (05:53→23:52)
[2020-04-28] MEDS: INSULIN REG, HUMAN 100 UNIT/ML 3 ML VIAL (PYX) SUBCUT SCH ×4 (05:54→23:53)
[2020-04-28] MEDS ORDERED: NORMAL SALINE 250 ML IV PRN ×2 (06:41)
[2020-04-28] MEDS: BUDESONIDE NEB 0.25 MG/2 ML AMPUL NEB SCH ×2 (07:39→20:56)
[2020-04-28] MEDS ORDERED: ACETAMINOPHEN 650 MG SUPP.RECT PR PRN (07:54)
[2020-04-28 08:41] LABS: HEMATOCRIT 19.2 % (36.0-47.0); MEAN CORPUSCULAR HEMOGLOBIN 24.1 pg (27.0-33.4); MEAN CORPUSCULAR VOLUME 75 fl (80-97); PLATELET COUNT 155 10^3/uL (150-450); RED BLOOD COUNT 2.56 10^6/uL (3.72-5.28); RED CELL DISTRIBUTION WIDTH 26.8 % (11.5-14.0); WHITE BLOOD COUNT 13.3 10^3/uL (4.0-10.5)
[2020-04-28 08:44] LABS: HEMOGLOBIN 6.2 g/dL (12.0-15.5)
[2020-04-28] MEDS: FAMOTIDINE INJ/PF 20 MG/2 ML SDV IV SCH ×2 (10:29→22:04)
[2020-04-28] MEDS: FUROSEMIDE INJ/PF 40 MG/4 ML SDV IV SCH ×2 (10:29→22:03)
[2020-04-28] MEDS: METHYLPREDNISOLONE INJ 40 MG/1 ML SDV IV SCH (10:29)
[2020-04-28] MEDS: CHOLECALCIFEROL (D3) 1,000 UNIT (25 MCG) TABLET NG SCH (10:32)
[2020-04-28] MEDS: AMINO AC/PROTEIN HYDR/WHEY PRO 11 GM/45 ML PKT NG SCH ×3 (10:32→17:38)
[2020-04-28] MEDS: ASCORBIC ACID 500 MG TABLET NG SCH ×2 (10:32→17:38)
[2020-04-28] MEDS: SENNOSIDES/DOCUSATE 8.6-50 MG 1 EACH TABLET NG SCH ×2 (10:33→17:38)
[2020-04-28] MEDS: ZINC SULFATE 220 MG CAPSULE NG SCH (10:33)
--- NOTE | 2020-04-28 15:42 | PDOC CRITICAL CARE PROG REPORT ---
General Date:: 04/28/20 ICU Day:: 29 Ventilator Day:: 29 Hospital Day:: 38 Resuscitation Status: Full Code Events in the past 12 to 24 Hours:: This 44-year-old -Y[place]i female presented to [facility] emergency department on 03/21/2020 with complaints of possible presyncope versus syncope in addition to fever, chills, productive cough, dyspnea and exertional dyspnea. She has a history of psychiatric disorders and is known to be a difficult historian. Nonetheless, the patient also was known to have been diagnosed with COVID-19 pneumonia on 03/17/2020 and had subsequently been evaluated in the emergency department. She was apparently discharged home with prescriptions for azithromycin and other medications for symptomatic treatment. She returned with worsening shortness of breath and newly demonstrating supplemental oxygen requirement. 04/09-04/10: Remains intubated. Sedated with Precedex/Versed/fentanyl. On pressure control mode with peak and plateau pressures in the 40s. On insulin infusion for glucose control. On Glucerna + Prosource. KUB obtained showed a gasless abdomen, incongruent with physical exam (possibly due to morbid obesity). Still no BM. 04/11-: Had brisk diuresis with furosemide 40 mg IV single dose (2600 mL urine output), which resulted in a decrease in CVP. However, CVP is now back up to 910. On PRVC mode. ABG this a.m.: 7.46/46/53. Creatinine 0.6. WBC 17.3>11.4. Still no BM. On Versed/fentanyl/Precedex for sedation. Opens eyes to physical stimuli. Tube feeding currently on hold due to high residuals. Of note, even in the absence of tube feeding, the patient is having gastric residuals in the 200s. She does demonstrate spontaneous eye opening. She does not follow commands. 04/13-: Switched to BiVENT/APRV on 04/12/2020 (FiO2 80%, P high 17, T high 9.5 seconds, P low 3, T low 0.5 seconds). ABG this a.m.: 7.42/50/72. Off insulin infusion. Overnight, the patient had an episode of hypoglycemia (40) despite being on trickle tube feeds. Blood cultures (04/13) isolated gram-positive cocci in clusters. Tracheal aspirate (04/13) isolated Staphylococcus aureus. GPC is MSSA sens to rocephin. Still unsure if it's a contaminate. No progress made on ventilator. Changed back to PRVC on 04/16. Still 100% and PEEP 14. 04/18: CXR looks better. Will try weaning today. FiO2 first. 04/19-: Not able to wean yesterday. O2 saturations 95-96%. Will wean PEEP. Down to 10 in effort to lower PEEP for trach which I believe she will need. No weaning on drips yet. Will need trach and PEG. O2 saturations worse, in mid to low 80s on 100%. Talked with Dr. Owen regarding need for trach next week. 04/23: Remains intubated. On rocuronium, Versed and fentanyl infusions. FiO2 95%. PRVC. WBC 13.6. D-dimer 3.14. CRP 59.1. Magnesium 1.5. 04/24: Rocuronium was discontinued yesterday. The patient's ventilator mode was switched to BiVENT. Versed changed to propofol. Still on fentanyl. On BiVENT. [place] sedated. 04/25: Yesterday afternoon, she developed acute hypoxemic decompensation followed by profound hypotension. Clinically, this was highly suspicious for pulmonary embolism. She was started on heparin infusion. SVO2 was found to be 15%. She was started on dobutamine. Ventilator settings were changed. She is still on BiVENT/APRV but now with settings that closely mimic inverse I:E pressure control ventilation. FiO2 100%. P high 20, P low 10, T high 1.5, T low 0.5. 04/26: COVID-19 (HUGH from 04/23) finally returned to negative result. Dobutamine changed to milrinone yesterday. Still on BiVENT/APRV but has been tolerating lower pressures in longer T high times. Had an episode of oxygen desaturation again this morning. Clinically, it appears that she is having increased secretions from the airway, possibly with mucous plugging. Settings were changed subsequent to oxygen desaturation: P high 30, P low 10, T high 1.5, T low 0.5. ABG this a.m.: 7.36/51/69. Diuresing, -869 mL yesterday. proBNP 5880. BM +. 04/27: [place] sedated, synchronous with ventilator. BG this a.m. 7.28/64/78. WBC 25.8 this AM. CRP 200. D-dimer 2.04. 04/28: WBC down to 25.8>14.8 this AM. Not on antibiotics. However, hemoglobin also dropped to 6.6. Repeat hemoglobin 6.2. No obvious blood loss. Blood urine and tracheal aspirate cultures from 04/27 pending. On propofol/Pre cedex/fentanyl. Triglycerides 183. Review of systems relevant to events:: Pulmonary Reason for ICU Addmission:: acute respiratory failure, covid -19 pneumonia, intubated. - Medications: Medications reviewed and adjusted accordingly: Yes Vasopressors:: On Levophed, Primacor Sedation:: Propofol/Precedex/fentanyl Physical Exam Vital Signs: Temp Pulse Resp BP Pulse Ox 95.9 F L 78 5 L 101/61 98 04/28/20 06:00 04/28/20 02:49 04/28/20 06:00 04/28/20 05:26 04/28/20 06:00 Intake & Output 04/27/20 04/28/20 04/29/20 06:59 06:59 06:59 Intake Total 2454 4685 Output Total 3505 5340 Balance -1051 -655 Weight 150.6 kg 156.2 kg Weight/Height Weight 156.2 kg Height 1.6 m General appearance: PRESENT: no acute distress, morbidly obese, well-developed, well-nourished Head exam: PRESENT: atraumatic, normocephalic Eye exam: PRESENT: conjunctiva pink, EOMI, PERRLA. ABSENT: scleral icterus Mouth exam: PRESENT: moist, tongue midline Neck exam: ABSENT: carotid bruit, JVD, lymphadenopathy, thyromegaly Respiratory exam: PRESENT: crackles. ABSENT: rales, rhonchi, wheezes Cardiovascular exam: PRESENT: RRR, tachycardia. ABSENT: diastolic murmur, rubs, systolic murmur Pulses: PRESENT: normal dorsalis pedis pul GI/Abdominal exam: PRESENT: normal bowel sounds, soft. ABSENT: distended, guarding, mass, organolmegaly, rebound, tenderness Gentrourinary exam: PRESENT: indwelling catheter Extremities exam: PRESENT: full ROM, pedal edema. ABSENT: calf tenderness, clubbing Neurological exam: PRESENT: altered, CN II-XII grossly intact. ABSENT: reflexes normal Psychiatric exam: ABSENT: agitated, anxious Skin exam: PRESENT: dry, intact, warm. ABSENT: cyanosis, rash Tubes/Lines: PRESENT: Endotracheal Tube - 04/01, Central Line - Left IJ 04/01, Nasogastic Tube Laboratory/Radiographs Laboratory Results: 04/28/20 04:20 04/28/20 04:20 04/27/20 04/28/20 04/28/20 09:15 04:20 04:20 WBC RBC Hgb Hct MCV MCH MCHC RDW Plt Count Carbonic Acid 1.92 H 1.55 H HCO3/H2CO3 Ratio 17:1 18:1 ABG pH 7.34 L 7.37 ABG pCO2 63.7 H 51.4 H ABG pO2 112.9 H 55.0 L ABG HCO3 33.2 H 28.8 H ABG O2 Saturation 97.7 87.2 L ABG Base Excess 6.4 3.0 FiO2 100% 90% Sodium 136.3 L Potassium 4.0 Chloride 98 Carbon Dioxide 30 Anion Gap 8 BUN 30 H Creatinine 0.68 Est GFR ( Amer) > 60 Glucose 210 H Calcium 8.9 Triglycerides 183 H 04/28/20 04:20 WBC 14.8 H RBC 2.69 L Hgb 6.6 L Hct 20.2 L MCV 75 L MCH 24.4 L MCHC 32.4 RDW 26.7 H Plt Count 171 Carbonic Acid HCO3/H2CO3 Ratio ABG pH ABG pCO2 ABG pO2 ABG HCO3 ABG O2 Saturation ABG Base Excess FiO2 Sodium Potassium Chloride Carbon Dioxide Anion Gap BUN Creatinine Est GFR ( Amer) Glucose Calcium Triglycerides 03/21/20 04/11/20 04/14/20 21:58 03:05 01:59 Troponin I < 0.012 NT-Pro-B Natriuret Pep 192 H 184 H 04/24/20 04/25/20 04/26/20 14:18 09:01 03:53 Troponin I 0.012 NT-Pro-B Natriuret Pep 7620 H 5880 H Impressions: Abdomen Ultrasound 04/10/20 00:00 IMPRESSION: NO EVIDENCE FOR ASCITES. KUB X-Ray 04/11/20 00:00 IMPRESSION: 1. Similar appearance of the abdomen with a relative paucity of bowel gas. 2. The tip of the enteric tube projects within the gastric lumen. Chest X-Ray 04/24/20 12:05 IMPRESSION: No significant change. No pneumothorax. All labs, radiographs, diagnostic studies and EKGs were personally reviewed: Yes In addition, reports of radiographic and diagnostic studies were read: Yes Assessment and Plan - Diagnosis (1) Acute respiratory failure with hypoxia and hypercapnia Is this a current diagnosis for this admission?: Yes Plan: * Diurese. * Continue BiVENT. P hi 20 P lo 3, T hi 5.5, T lo 0.5 + PSV 15. This trend toward lower pressures this is encouraging and that this may provide the patient an opportunity to proceed with tracheostomy. * Follow up vent settings changes with ABG results. * Titrate sedation for RASS -2. * Propofol/Precedex for sedation. (2) Pneumonia due to COVID-19 virus Is this a current diagnosis for this admission?: Yes Plan: * Still on high support with essentially no change. Continue course. * COVID recheck (04/23) negative. (3) Normocytic anemia Is this a current diagnosis for this admission?: Yes Plan: * Type and screen. Transfuse 2 unit PRBC. * Monitor hemoglobin. (4) Leukocytosis Qualifiers: Leukocytosis type: unspecified Qualified Code(s): D72.829 - Elevated white blood cell count, unspecified Is this a current diagnosis for this admission?: Yes (5) Schizophrenia Qualifiers: Schizophrenia type: unspecified Qualified Code(s): F20.9 - Schizophrenia, unspecified Is this a current diagnosis for this admission?: Yes (6) Steroid-induced hyperglycemia Is this a current diagnosis for this admission?: Yes (7) Hypoglycemia Is this a current diagnosis for this admission?: Yes (8) Staphylococcus aureus bacteremia Is this a current diagnosis for this admission?: Yes Plan: * Treated with vancomycin followed by Rocephin (after identification is MSSA). (9) Staphylococcal pneumonia Is this a current diagnosis for this admission?: Yes (10) Constipation Qualifiers: Constipation type: slow transit constipation Qualified Code(s): K59.01 - Slow transit constipation Is this a current diagnosis for this admission?: Yes Critical Time Critical Time (minutes): 60 Level of Care: ICU -: 1. The care of a critical patient is a dynamic process. This note is a outside energy sales representatives synopsis but static in nature. The timeframe for treatments given in order is not necessarily the actual time these treatments may have been done. 2. This patient requires critical care secondary to ongoing requirements for therapy not offered or safe outside the critical care environment. Transfer to a lower level of care will result in altered life or limb morbidity and mortality. 3. Multidisciplinary rounds completed. 4. ABCDE bundle addressed.
[2020-04-28 15:58] LABS: MEAN CORPUSCULAR HEMOGLOBIN 25.3 pg (27.0-33.4); MEAN CORPUSCULAR HGB CONC 32.5 g/dL (32.0-36.0); MEAN CORPUSCULAR VOLUME 78 fl (80-97); PLATELET COUNT 175 10^3/uL (150-450); RED BLOOD COUNT 3.48 10^6/uL (3.72-5.28); WHITE BLOOD COUNT 16.2 10^3/uL (4.0-10.5)
[2020-04-28 16:29] LABS: ARTERIAL BLOOD BASE EXCESS 3.7 mmol/L; ARTERIAL BLOOD H2CO3 1.37 mmol/L (1.05-1.35); ARTERIAL BLOOD HCO3 28.7 mmol/L (20-24); ARTERIAL BLOOD O2 SATURATION 89.1 % (94-98); ARTERIAL BLOOD PCO2 45.4 mmHg (35-45); ARTERIAL BLOOD PH 7.42 (7.35-7.45); ARTERIAL BLOOD PO2 55.3 mmHg (80-100)
[2020-04-28 16:31] LABS: ARTERIAL BLOOD FIO2 90%
[2020-04-28 16:40] LABS: HEMOGLOBIN 8.8 g/dL (12.0-15.5)
[2020-04-28 16:43] LABS: ABSOLUTE LYMPHOCYTES# (MANUAL) 0.3 10^3/uL (0.5-4.7); ABSOLUTE MONOCYTES # (MANUAL) 0.6 10^3/uL (0.1-1.4); BASOPHILS % (MANUAL) 0 % (0-2); EOSINOPHILS % (MANUAL) 2 % (0-6); LYMPHOCYTES % (MANUAL) 2 % (13-45); MONOCYTES % (MANUAL) 4 % (3-13); SEGMENTED NEUTROPHILS % (MAN) 92 % (42-78); TOTAL CELLS COUNTED 100
[2020-04-28 16:45] LABS: ANISOCYTOSIS 3+; PLATELET COMMENT ADEQUATE
[2020-04-28] MEDS ORDERED: VANCOMYCIN HCL 0 MG in DEXTROSE 5%-WATER 250 ML IV NR (18:00)
[2020-04-28] MEDS ORDERED: VANCOMYCIN HCL INJ 1000 MG VIAL IV PRN (18:11)
[2020-04-28] MEDS: LABETALOL HCL INJ 20 MG/4 ML DISP.SYRIN IV PRN (19:43)
[2020-04-28] MEDS ORDERED: MIDAZOLAM 2 MG/2 ML INJ ONE (20:27)
[2020-04-28] MEDS: VANCOMYCIN HCL 2,000 MG in DEXTROSE 5%-WATER 500 ML IV SCH (20:55)
[2020-04-28] MEDS ORDERED: MIDAZOLAM 2 MG/2 ML INJ IV ONE (21:45)
[2020-04-28] MEDS ORDERED: MIDAZOLAM HCL 50 MG/100 ML RTUINJ ONE (22:13)
[2020-04-28] MEDS ORDERED: ACETAMINOPHEN SOLN 325 MG/10.15 ML UDCUP ONE (22:37)
[2020-04-28] MEDS: ACETAMINOPHEN SOLN 325 MG/10.15 ML UDCUP PO PRN (22:47)
[2020-04-28] MEDS: MIDAZOLAM HCL 50 MG/100 ML RTUINJ IV PRN (23:54)
[2020-04-29] MEDS: FENTANYL CITRATE/PF 600 MCG/60 ML BAG IV PRN ×9 (00:20→23:25)
[2020-04-29] MEDS: DEXMEDETOMIDINE IN NS 400 MCG/100 ML RTUPB IV PRN ×9 (00:30→16:08)
[2020-04-29] MEDS: PROPOFOL 1,000 MG/100 ML INFUS..BTL IV PRN ×2 (01:25→03:27)
[2020-04-29] MEDS: MIDAZOLAM HCL 50 MG/100 ML RTUINJ IV PRN ×3 (03:45→16:12)
[2020-04-29 03:51] LABS: HEMATOCRIT 27.5 % (36.0-47.0); MEAN CORPUSCULAR HEMOGLOBIN 25.5 pg (27.0-33.4); MEAN CORPUSCULAR HGB CONC 32.6 g/dL (32.0-36.0); MEAN CORPUSCULAR VOLUME 78 fl (80-97); PLATELET COUNT 165 10^3/uL (150-450); RED BLOOD COUNT 3.52 10^6/uL (3.72-5.28); RED CELL DISTRIBUTION WIDTH 24.6 % (11.5-14.0); WHITE BLOOD COUNT 28.3 10^3/uL (4.0-10.5)
[2020-04-29 04:18] LABS: ANION GAP 10 (5-19); BLOOD UREA NITROGEN 33 mg/dL (7-20); C-REACTIVE PROTEIN 83.2 mg/L (<10.0); CALCIUM 8.9 mg/dL (8.4-10.2); CARBON DIOXIDE 30 mmol/L (22-30); CHLORIDE 96 mmol/L (98-107); GLUCOSE 130 mg/dL (75-110); POTASSIUM 3.2 mmol/L (3.6-5.0)
[2020-04-29] MEDS: METOCLOPRAMIDE HCL INJ/PF 10 MG/2 ML SDV IV SCH ×3 (06:08→17:53)
[2020-04-29] MEDS: HEPARIN SOD (PORCINE) 1,000 UNIT/ML 10 ML VIAL IV PRN (06:09)
[2020-04-29 06:18] LABS: ARTERIAL BLOOD BASE EXCESS 1.1 mmol/L; ARTERIAL BLOOD FIO2 100%; ARTERIAL BLOOD H2CO3 1.59 mmol/L (1.05-1.35); ARTERIAL BLOOD HCO3 27.7 mmol/L (20-24); ARTERIAL BLOOD O2 SATURATION 86.2 % (94-98); ARTERIAL BLOOD PCO2 52.7 mmHg (35-45); ARTERIAL BLOOD PH 7.34 (7.35-7.45); ARTERIAL BLOOD PO2 54.8 mmHg (80-100); ARTERIAL BLOOD TOTAL CO2 29.3 mmol/L (21-25)
[2020-04-29] MEDS: POTASSI CL 20 MEQ/50 ML RIDER 20 MEQ/50 ML RTUPB IV SCH ×2 (06:24→08:30)
[2020-04-29] MEDS: INSULIN REG, HUMAN 100 UNIT/ML 3 ML VIAL (PYX) SUBCUT SCH ×3 (06:56→18:24)
[2020-04-29] MEDS: VANCOMYCIN HCL 2,000 MG in DEXTROSE 5%-WATER 500 ML IV SCH (06:57)
--- NOTE | 2020-04-29 08:10 | RADIOLOGY REPORT (SQ) ---
EXAM DESCRIPTION: CHEST SINGLE VIEW IMAGES COMPLETED DATE/TIME: 04/29/2020 5:35 am REASON FOR STUDY: ETT tube COMPARISON: 04/24/2020. EXAM PARAMETERS: NUMBER OF VIEWS: One view. TECHNIQUE: Single frontal radiographic view of the chest acquired. RADIATION DOSE: NA LIMITATIONS: None. FINDINGS: LUNGS AND PLEURA: Faint bilateral airspace disease, unchanged. MEDIASTINUM AND HILAR STRUCTURES: No masses. Contour normal. HEART AND VASCULAR STRUCTURES: Cardiomegaly unchanged. BONES: No acute findings. HARDWARE: Stable endotracheal tube, nasogastric tube, central line. OTHER: No other significant finding. IMPRESSION: NO SIGNIFICANT CHANGE IN APPEARANCE OF THE CHEST. TECHNICAL DOCUMENTATION: JOB ID: [id number] 2010 [employer]- All Rights Reserved Reading location - IP/workstation name: [email or web address]
[2020-04-29] MEDS: ALBUTEROL SULFATE 0.083% NEB 2.5 MG/3 ML AMPUL NEB PRN (08:28)
[2020-04-29] MEDS: BUDESONIDE NEB 0.25 MG/2 ML AMPUL NEB SCH ×2 (08:28→21:57)
[2020-04-29] MEDS: AMINO AC/PROTEIN HYDR/WHEY PRO 11 GM/45 ML PKT NG SCH ×3 (10:27→17:53)
[2020-04-29] MEDS: POTASSIUM CHLORIDE 20 MEQ PACKET NG SCH ×2 (10:29→11:49)
[2020-04-29] MEDS: METHYLPREDNISOLONE INJ 40 MG/1 ML SDV IV SCH (10:29)
[2020-04-29] MEDS: FUROSEMIDE INJ/PF 40 MG/4 ML SDV IV SCH ×2 (10:29→21:19)
[2020-04-29] MEDS: SENNOSIDES/DOCUSATE 8.6-50 MG 1 EACH TABLET NG SCH ×2 (10:29→17:53)
[2020-04-29] MEDS: FAMOTIDINE INJ/PF 20 MG/2 ML SDV IV SCH ×2 (10:30→21:19)
[2020-04-29] MEDS: CHOLECALCIFEROL (D3) 1,000 UNIT (25 MCG) TABLET NG SCH (10:30)
[2020-04-29] MEDS: ZINC SULFATE 220 MG CAPSULE NG SCH (10:30)
[2020-04-29] MEDS: ASCORBIC ACID 500 MG TABLET NG SCH ×2 (10:30→17:53)
[2020-04-29] MEDS: MAGNESIUM SULFATE/D5W 1 GM/100 ML RTUPB IV SCH ×2 (10:31→11:35)
[2020-04-29] MEDS: HEPARIN SODIUM,PORCINE/D5W 25,000 UNIT/250 ML RTUINJ IV PRN (10:41)
[2020-04-29 10:42] LABS: ARTERIAL BLOOD BASE EXCESS 0.3 mmol/L; ARTERIAL BLOOD H2CO3 1.51 mmol/L (1.05-1.35); ARTERIAL BLOOD HCO3 26.5 mmol/L (20-24); ARTERIAL BLOOD O2 SATURATION 81.3 % (94-98); ARTERIAL BLOOD PCO2 50.3 mmHg (35-45); ARTERIAL BLOOD PH 7.34 (7.35-7.45); ARTERIAL BLOOD PO2 48.4 mmHg (80-100); ARTERIAL BLOOD TOTAL CO2 28.1 mmol/L (21-25)
[2020-04-29 10:43] LABS: ARTERIAL BLOOD FIO2 100%
[2020-04-29] MEDS ORDERED: VANCOMYCIN HCL 1,250 MG in DEXTROSE 5%-WATER 250 ML IV SCH (11:00)
[2020-04-29] MEDS: POLYETHYLENE GLYCOL 3350 POWDER 17 GM/1 PACKET NG PRN (12:57)
--- NOTE | 2020-04-29 13:45 | PDOC CRITICAL CARE PROG REPORT ---
General Date:: 04/29/20 ICU Day:: 30 Ventilator Day:: 30 Hospital Day:: 39 Resuscitation Status: Full Code Events in the past 12 to 24 Hours:: This 44-year-old -[place] female presented to [facility] emergency department on 03/21/2020 with complaints of possible presyncope versus syncope in addition to fever, chills, productive cough, dyspnea and exertional dyspnea. She has a history of psychiatric disorders and is known to be a difficult historian. Nonetheless, the patient also was known to have been diagnosed with COVID-19 pneumonia on 03/17/2020 and had subsequently been evaluated in the emergency department. She was apparently discharged home with prescriptions for azithromycin and other medications for symptomatic treatment. She returned with worsening shortness of breath and newly demonstrating supplemental oxygen requirement. 04/09-04/10: Remains intubated. Sedated with Precedex/Versed/fentanyl. On pressure control mode with peak and plateau pressures in the 40s. On insulin infusion for glucose control. On Glucerna + Prosource. KUB obtained showed a gasless abdomen, incongruent with physical exam (possibly due to morbid obesity). Still no BM. 04/11-: Had brisk diuresis with furosemide 40 mg IV single dose (2600 mL urine output), which resulted in a decrease in CVP. However, CVP is now back up to 910. On PRVC mode. ABG this a.m.: 7.46/46/53. Creatinine 0.6. WBC 17.3>11.4. Still no BM. On Versed/fentanyl/Precedex for sedation. Opens eyes to physical stimuli. Tube feeding currently on hold due to high residuals. Of note, even in the absence of tube feeding, the patient is having gastric residuals in the 200s. She does demonstrate spontaneous eye opening. She does not follow commands. 04/13-: Switched to BiVENT/APRV on 04/12/2020 (FiO2 80%, P high 17, T high 9.5 seconds, P low 3, T low 0.5 seconds). ABG this a.m.: 7.42/50/72. Off insulin infusion. Overnight, the patient had an episode of hypoglycemia (40) despite being on trickle tube feeds. Blood cultures (04/13) isolated gram-positive cocci in clusters. Tracheal aspirate (04/13) isolated Staphylococcus aureus. GPC is MSSA sens to rocephin. Still unsure if it's a contaminate. No progress made on ventilator. Changed back to PRVC on 04/16. Still 100% and PEEP 14. 04/18: CXR looks better. Will try weaning today. FiO2 first. 04/19-: Not able to wean yesterday. O2 saturations 95-96%. Will wean PEEP. Down to 10 in effort to lower PEEP for trach which I believe she will need. No weaning on drips yet. Will need trach and PEG. O2 saturations worse, in mid to low 80s on 100%. Talked with Dr. Owen regarding need for trach next week. 04/23: Remains intubated. On rocuronium, Versed and fentanyl infusions. FiO2 95%. PRVC. WBC 13.6. D-dimer 3.14. CRP 59.1. Magnesium 1.5. 04/24: Rocuronium was discontinued yesterday. The patient's ventilator mode was switched to BiVENT. Versed changed to propofol. Still on fentanyl. On BiVENT. [place] sedated. 04/25: Yesterday afternoon, she developed acute hypoxemic decompensation followed by profound hypotension. Clinically, this was highly suspicious for pulmonary embolism. She was started on heparin infusion. SVO2 was found to be 15%. She was started on dobutamine. Ventilator settings were changed. She is still on BiVENT/APRV but now with settings that closely mimic inverse I:E pressure control ventilation. FiO2 100%. P high 20, P low 10, T high 1.5, T low 0.5. 04/26: COVID-19 (HUGH from 04/23) finally returned to negative result. Dobutamine changed to milrinone yesterday. Still on BiVENT/APRV but has been tolerating lower pressures in longer T high times. Had an episode of oxygen desaturation again this morning. Clinically, it appears that she is having increased secretions from the airway, possibly with mucous plugging. Settings were changed subsequent to oxygen desaturation: P high 30, P low 10, T high 1.5, T low 0.5. ABG this a.m.: 7.36/51/69. Diuresing, -869 mL yesterday. proBNP 5880. BM +. 04/27: [place] sedated, synchronous with ventilator. BG this a.m. 7.28/64/78. WBC 25.8 this AM. CRP 200. D-dimer 2.04. 04/28: WBC down to 25.8>14.8 this AM. Not on antibiotics. However, hemoglobin also dropped to 6.6. Repeat hemoglobin 6.2. No obvious blood loss. Blood urine and tracheal aspirate cultures from 04/27 pending. On propofol/Pre cedex/fentanyl. Triglycerides 183. 04/29: Febrile (T-max 24-hour 102.7 Fahrenheit), reportedly refractory to Tylenol and cooling blanket. WBC 28.3. Hemoglobin 6.2>9 after transfusion of 2 units PRBC yesterday. Started on vancomycin overnight due to gram-positive cocci in trach aspirate (04/27), which are now being reported as MRSA. Also, blood cultures (1 of 2) are growing out Staphylococcus species, possibly a contaminant. Still on propofol/Precedex/fentanyl for sedation. Started Versed overnight as well. On BiVENT/APRV: P high 20, P low 3, T high 5.5, T low 0.5. + PSV 15. Review of systems relevant to events:: Pulmonary Reason for ICU Addmission:: acute respiratory failure, covid -19 pneumonia, intubated. - Medications: Medications reviewed and adjusted accordingly: Yes Vasopressors:: On Levophed, Primacor Sedation:: Propofol/Precedex/fentanyl Physical Exam Vital Signs: Temp Pulse Resp BP Pulse Ox 100 F 126 H 38 H 93/58 L 88 L 04/29/20 06:00 04/29/20 08:28 04/29/20 08:28 04/29/20 06:08 04/29/20 08:28 Intake & Output 04/28/20 04/29/20 04/30/20 06:59 06:59 06:59 Intake Total 3946 4025 112 Output Total 2037 7175 Balance -655 248 112 Weight 156.2 kg 154.5 kg Weight/Height Weight 154.5 kg Height 1.6 m General appearance: PRESENT: no acute distress, morbidly obese, well-developed, well-nourished Head exam: PRESENT: atraumatic, normocephalic Eye exam: PRESENT: conjunctiva pink, EOMI, PERRLA. ABSENT: scleral icterus Neck exam: ABSENT: carotid bruit, JVD, lymphadenopathy, thyromegaly Respiratory exam: PRESENT: rales - Scattered, rhonchi - Scant. ABSENT: wheezes Cardiovascular exam: PRESENT: RRR, tachycardia. ABSENT: diastolic murmur, rubs, systolic murmur Pulses: PRESENT: normal dorsalis pedis pul GI/Abdominal exam: PRESENT: normal bowel sounds, soft. ABSENT: distended, guarding, mass, organolmegaly, rebound, tenderness Gentrourinary exam: PRESENT: indwelling catheter Extremities exam: PRESENT: full ROM, pedal edema, +2 edema. ABSENT: calf tenderness, clubbing Musculoskeletal exam: PRESENT: normal inspection. ABSENT: deformity Neurological exam: PRESENT: altered, CN II-XII grossly intact Psychiatric exam: ABSENT: agitated, anxious Skin exam: PRESENT: dry, intact, warm. ABSENT: cyanosis, rash Tubes/Lines: PRESENT: Endotracheal Tube - Insertion date 04/01, Central Line - Left IJ 04/01, Nasogastic Tube Laboratory/Radiographs Laboratory Results: 04/29/20 03:30 04/29/20 03:30 04/28/20 04/28/20 04/28/20 08:17 15:40 16:20 WBC 16.2 H RBC 3.48 L Hgb 8.8 L D Hct 27.0 L MCV 78 L MCH 25.3 L MCHC 32.5 RDW 24.0 H Plt Count 175 Seg Neutrophils % Not Reportable Carbonic Acid 1.37 H HCO3/H2CO3 Ratio 20:1 ABG pH 7.42 ABG pCO2 45.4 H ABG pO2 55.3 L ABG HCO3 28.7 H ABG O2 Saturation 89.1 L ABG Base Excess 3.7 FiO2 90% Sodium Potassium Chloride Carbon Dioxide Anion Gap BUN Creatinine Est GFR ( Amer) Glucose Calcium C-Reactive Protein Blood Type O POSITIVE Antibody Screen NEGATIVE 04/29/20 04/29/20 04/29/20 03:30 03:30 05:09 WBC 28.3 H RBC 3.52 L Hgb 9.0 L Hct 27.5 L MCV 78 L MCH 25.5 L MCHC 32.6 RDW 24.6 H Plt Count 165 Seg Neutrophils % Carbonic Acid 1.59 H HCO3/H2CO3 Ratio 17:1 ABG pH 7.34 L ABG pCO2 52.7 H ABG pO2 54.8 L ABG HCO3 27.7 H ABG O2 Saturation 86.2 L ABG Base Excess 1.1 FiO2 100% Sodium 135.9 L Potassium 3.2 L Chloride 96 L Carbon Dioxide 30 Anion Gap 10 BUN 33 H Creatinine 0.57 Est GFR ( Amer) > 60 Glucose 130 H Calcium 8.9 C-Reactive Protein 83.2 H Blood Type Antibody Screen 04/27/20 18:07 Blood Blood Culture (PCR) - Final Staphylococcus Species 03/21/20 04/11/20 04/14/20 21:58 03:05 01:59 Troponin I < 0.012 NT-Pro-B Natriuret Pep 192 H 184 H 04/24/20 04/25/20 04/26/20 14:18 09:01 03:53 Troponin I 0.012 NT-Pro-B Natriuret Pep 7620 H 5880 H Impressions: Abdomen Ultrasound 04/10/20 00:00 IMPRESSION: NO EVIDENCE FOR ASCITES. KUB X-Ray 04/11/20 00:00 IMPRESSION: 1. Similar appearance of the abdomen with a relative paucity of bowel gas. 2. The tip of the enteric tube projects within the gastric lumen. Chest X-Ray 04/29/20 05:00 IMPRESSION: NO SIGNIFICANT CHANGE IN APPEARANCE OF THE CHEST. All labs, radiographs, diagnostic studies and EKGs were personally reviewed: Yes In addition, reports of radiographic and diagnostic studies were read: Yes Assessment and Plan - Diagnosis (1) Fever Qualifiers: Encounter type: initial encounter Is this a current diagnosis for this admission?: Yes Plan: * Continue vancomycin for MRSA pneumonia. * Check stool for C. difficile. * Follow-up pending culture data. * Stop propofol (possible propofol infusion syndrome). * Continue Tylenol as needed. * Continue cooling blanket. (2) Acute respiratory failure with hypoxia and hypercapnia Is this a current diagnosis for this admission?: Yes Plan: * Diurese. * Continue BiVENT. P hi 20 P lo 3, T hi 5.5, T lo 0.5 + PSV 15. This trend toward lower pressures this is encouraging and that this may provide the patient an opportunity to proceed with tracheostomy. * Follow up vent settings changes with ABG results. * Titrate sedation for RASS -2. * Stop propofol. Start Versed infusion. * Continue Precedex/fentanyl. (3) Staphylococcal pneumonia Is this a current diagnosis for this admission?: Yes Plan: * MRSA pneumonia. Continue vancomycin (start date 04/28). (4) Pneumonia due to COVID-19 virus Is this a current diagnosis for this admission?: Yes Plan: * Still on high support with essentially no change. Continue course. * COVID recheck (04/23) negative. (5) Normocytic anemia Is this a current diagnosis for this admission?: Yes Plan: * Monitor hemoglobin. (6) Leukocytosis Qualifiers: Leukocytosis type: unspecified Qualified Code(s): D72.829 - Elevated white blood cell count, unspecified Is this a current diagnosis for this admission?: Yes (7) Schizophrenia Qualifiers: Schizophrenia type: unspecified Qualified Code(s): F20.9 - Schizophrenia, unspecified Is this a current diagnosis for this admission?: Yes (8) Steroid-induced hyperglycemia Is this a current diagnosis for this admission?: Yes (9) Hypoglycemia Is this a current diagnosis for this admission?: Yes (10) Staphylococcus aureus bacteremia Is this a current diagnosis for this admission?: Yes (11) Constipation Qualifiers: Constipation type: slow transit constipation Qualified Code(s): K59.01 - Slow transit constipation Is this a current diagnosis for this admission?: Yes Critical Time Critical Time (minutes): 60 Level of Care: ICU -: 1. The care of a critical patient is a dynamic process. This note is a sales and marketing representative synopsis but static in nature. The timeframe for treatments given in order is not necessarily the actual time these treatments may have been done. 2. This patient requires critical care secondary to ongoing requirements for therapy not offered or safe outside the critical care environment. Transfer to a lower level of care will result in altered life or limb morbidity and mortality. 3. Multidisciplinary rounds completed. 4. ABCDE bundle addressed.
[2020-04-29] MEDS ORDERED: VASOPRESSIN INJ 20 UNIT/1 ML VIAL ONE (15:54)
--- NOTE | 2020-04-29 16:17 | RADIOLOGY REPORT (SQ) ---
EXAM DESCRIPTION: KUB/ABDOMEN (SINGLE VIEW) IMAGES COMPLETED DATE/TIME: 04/29/2020 3:51 pm REASON FOR STUDY: Removed old NG and placed new Ng TUBE COMPARISON: 04/11/2020 NUMBER OF VIEWS: One view. TECHNIQUE: Supine radiographic image of the abdomen acquired. LIMITATIONS: None. FINDINGS: BOWEL GAS PATTERN: No dilated loops identified. NG tube is present with side port and tip overlying the body of the stomach. OTHER: No other significant finding. IMPRESSION: NG tube is present with side port and tip overlying the body of the stomach. TECHNICAL DOCUMENTATION: JOB ID: [id number] 2010 [employer]- All Rights Reserved Reading location - IP/workstation name: [email or web address]
[2020-04-29] MEDS ORDERED: DEXTROSE 5%-WATER 250 ML with VASOPRESSIN 100 UNIT IV PRN ×2 (16:21)
[2020-04-29 17:01] LABS: ANION GAP 14 (5-19); BLOOD UREA NITROGEN 35 mg/dL (7-20); CALCIUM 8.4 mg/dL (8.4-10.2); CARBON DIOXIDE 21 mmol/L (22-30); CHLORIDE 98 mmol/L (98-107); GLUCOSE 246 mg/dL (75-110)
[2020-04-29 17:09] LABS: POTASSIUM 6.1 mmol/L (3.6-5.0)
[2020-04-29] MEDS ORDERED: DEXTROSE 5%-WATER 250 ML with NOREPINEPHRINE BITARTRATE 4 MG IV PRN ×2 (17:25)
--- NOTE | 2020-04-29 18:17 | RADIOLOGY REPORT (SQ) ---
EXAM DESCRIPTION: CHEST SINGLE VIEW IMAGES COMPLETED DATE/TIME: 04/29/2020 2:11 pm REASON FOR STUDY: Evaluate for Pneumothorax COMPARISON: 04/29/2020 EXAM PARAMETERS: NUMBER OF VIEWS: One view. TECHNIQUE: Single frontal radiographic view of the chest acquired. RADIATION DOSE: NA LIMITATIONS: External leads partially obscure underlying structures. FINDINGS: LUNGS AND PLEURA: Faint bilateral opacities again demonstrated. There may be some denser retrocardiac opacities which appear similar to prior examination. No pleural effusion. Cannot defin itively exclude a tiny left apical pneumothorax. MEDIASTINUM AND HILAR STRUCTURES: Stable. HEART AND VASCULAR STRUCTURES: Stable. BONES: No acute findings. HARDWARE: Stable. OTHER: No other significant finding. IMPRESSION: Cannot definitively exclude a tiny left apical pneumothorax. Appearance of the chest is otherwise not significantly changed. TECHNICAL DOCUMENTATION: JOB ID: [id number] 2010 [employer]- All Rights Reserved Reading location - IP/workstation name: [email or web address]
[2020-04-29 18:18] LABS: ARTERIAL BLOOD BASE EXCESS -5.6 mmol/L; ARTERIAL BLOOD H2CO3 1.68 mmol/L (1.05-1.35); ARTERIAL BLOOD HCO3 22.3 mmol/L (20-24); ARTERIAL BLOOD O2 SATURATION 87.4 % (94-98); ARTERIAL BLOOD PCO2 55.9 mmHg (35-45); ARTERIAL BLOOD PH 7.22 (7.35-7.45); ARTERIAL BLOOD PO2 63.5 mmHg (80-100)
[2020-04-29 18:19] LABS: ARTERIAL BLOOD FIO2 100%
[2020-04-29] MEDS: VANCOMYCIN HCL 1,250 MG in DEXTROSE 5%-WATER 250 ML IV SCH (18:24)
[2020-04-29 18:37] LABS: ALBUMIN 2.9 g/dL (3.5-5.0); ALKALINE PHOSPHATASE 119 U/L (38-126); ANION GAP 12 (5-19); ASPARTATE AMINO TRANSFERASE 67 U/L (14-36); BILIRUBIN,DIRECT 0.9 mg/dL (0.0-0.4); BILIRUBIN,TOTAL 1.3 mg/dL (0.2-1.3); BLOOD UREA NITROGEN 36 mg/dL (7-20); CALCIUM 8.5 mg/dL (8.4-10.2); CARBON DIOXIDE 23 mmol/L (22-30); CHLORIDE 99 mmol/L (98-107); GLUCOSE 220 mg/dL (75-110); POTASSIUM 5.9 mmol/L (3.6-5.0); TOTAL PROTEIN 6.4 g/dL (6.3-8.2)
--- NOTE | 2020-04-29 23:02 | RADIOLOGY REPORT (SQ) ---
EXAM DESCRIPTION: XR CHEST 1 VIEW COMPLETED DATE/TME: 04/29/2020 22:18 CLINICAL HISTORY: 44 years Female, possible pneumothorax COMPARISON: Same day. 06/29/17 NUMBER OF VIEWS/TECHNIQUE: 1/AP FINDINGS: Moderately enlarged cardiac silhouette.. Mild/moderate interstitial markings. No pneumothorax. Stable bony thorax.Adequate appearing endotracheal tube. Adequate appearing enteric tube. Adequate appearing left jugular central line. Limitation: Leads/hardware/artifact. IMPRESSION: No significant change.
[2020-04-30] MEDS: DEXMEDETOMIDINE IN NS 400 MCG/100 ML RTUPB IV PRN ×5 (00:16→21:01)
[2020-04-30] MEDS: METOCLOPRAMIDE HCL INJ/PF 10 MG/2 ML SDV IV SCH ×4 (00:22→19:02)
[2020-04-30] MEDS: INSULIN REG, HUMAN 100 UNIT/ML 3 ML VIAL (PYX) SUBCUT SCH ×4 (01:14→19:01)
[2020-04-30] MEDS: FENTANYL CITRATE/PF 600 MCG/60 ML BAG IV PRN ×8 (02:00→21:50)
[2020-04-30] MEDS ORDERED: VANCOMYCIN HCL INJ 1000 MG VIAL ONE (02:31)
[2020-04-30] MEDS: VANCOMYCIN HCL 1,250 MG in DEXTROSE 5%-WATER 250 ML IV SCH (02:37)
[2020-04-30 04:24] LABS: ARTERIAL BLOOD BASE EXCESS -1.9 mmol/L; ARTERIAL BLOOD H2CO3 1.77 mmol/L (1.05-1.35); ARTERIAL BLOOD HCO3 25.8 mmol/L (20-24); ARTERIAL BLOOD O2 SATURATION 88.3 % (94-98); ARTERIAL BLOOD PCO2 58.8 mmHg (35-45); ARTERIAL BLOOD PH 7.26 (7.35-7.45); ARTERIAL BLOOD TOTAL CO2 27.6 mmol/L (21-25)
[2020-04-30 04:30] LABS: HEMATOCRIT 27.1 % (36.0-47.0); HEMOGLOBIN 8.7 g/dL (12.0-15.5); MEAN CORPUSCULAR HEMOGLOBIN 25.5 pg (27.0-33.4); MEAN CORPUSCULAR HGB CONC 32.2 g/dL (32.0-36.0); MEAN CORPUSCULAR VOLUME 79 fl (80-97); PLATELET COUNT 171 10^3/uL (150-450); RED BLOOD COUNT 3.42 10^6/uL (3.72-5.28); RED CELL DISTRIBUTION WIDTH 24.4 % (11.5-14.0)
[2020-04-30 04:37] LABS: ARTERIAL BLOOD FIO2 100%
[2020-04-30 04:46] LABS: ANION GAP 10 (5-19); BLOOD UREA NITROGEN 41 mg/dL (7-20); CALCIUM 8.2 mg/dL (8.4-10.2); CARBON DIOXIDE 27 mmol/L (22-30); CHLORIDE 97 mmol/L (98-107); GLUCOSE 198 mg/dL (75-110); PHOSPHORUS 6.4 mg/dL (2.5-4.5); POTASSIUM 5.8 mmol/L (3.6-5.0)
[2020-04-30 05:13] LABS: WHITE BLOOD COUNT 31.5 10^3/uL (4.0-10.5)
[2020-04-30 05:23] LABS: C DIFFICILE GDH NEGATIVE (NEGATIVE)
[2020-04-30] MEDS ORDERED: ALBUMIN HUMAN 500 ML IV ONE (05:48)
[2020-04-30] MEDS: HEPARIN SODIUM,PORCINE/D5W 25,000 UNIT/250 ML RTUINJ IV PRN ×2 (06:59→23:00)
[2020-04-30] MEDS: ALBUTEROL SULFATE 0.083% NEB 2.5 MG/3 ML AMPUL NEB PRN (08:30)
[2020-04-30] MEDS: BUDESONIDE NEB 0.25 MG/2 ML AMPUL NEB SCH ×2 (08:30→19:42)
--- NOTE | 2020-04-30 09:18 | PDOC CRITICAL CARE PROG REPORT ---
General Date:: 04/30/20 ICU Day:: 29 Ventilator Day:: 29 Hospital Day:: 39 Resuscitation Status: Full Code Events in the past 12 to 24 Hours:: This 44-year-old -[place] female presented to [facility] emergency department on 03/21/2020 with complaints of possible presyncope versus syncope in addition to fever, chills, productive cough, dyspnea and exertional dyspnea. She has a history of psychiatric disorders and is known to be a difficult historian. Nonetheless, the patient also was known to have been diagnosed with COVID-19 pneumonia on 03/17/2020 and had subsequently been evaluated in the emergency department. She was apparently discharged home with prescriptions for azithromycin and other medications for symptomatic treatment. She returned with worsening shortness of breath and newly demonstrating supplemental oxygen requirement. 04/09-04/10: Remains intubated. Sedated with Precedex/Versed/fentanyl. On pressure control mode with peak and plateau pressures in the 40s. On insulin infusion for glucose control. On Glucerna + Prosource. KUB obtained showed a gasless abdomen, incongruent with physical exam (possibly due to morbid obesity). Still no BM. 04/11-: Had brisk diuresis with furosemide 40 mg IV single dose (2600 mL urine output), which resulted in a decrease in CVP. However, CVP is now back up to 910. On PRVC mode. ABG this a.m.: 7.46/46/53. Creatinine 0.6. WBC 17.3>11.4. Still no BM. On Versed/fentanyl/Precedex for sedation. Opens eyes to physical stimuli. Tube feeding currently on hold due to high residuals. Of note, even in the absence of tube feeding, the patient is having gastric residuals in the 200s. She does demonstrate spontaneous eye opening. She does not follow commands. 04/13-: Switched to BiVENT/APRV on 04/12/2020 (FiO2 80%, P high 17, T high 9.5 seconds, P low 3, T low 0.5 seconds). ABG this a.m.: 7.42/50/72. Off insulin infusion. Overnight, the patient had an episode of hypoglycemia (40) despite being on trickle tube feeds. Blood cultures (04/13) isolated gram-positive cocci in clusters. Tracheal aspirate (04/13) isolated Staphylococcus aureus. GPC is MSSA sens to rocephin. Still unsure if it's a contaminate. No progress made on ventilator. Changed back to PRVC on 04/16. Still 100% and PEEP 14. 04/18: CXR looks better. Will try weaning today. FiO2 first. 04/19-: Not able to wean yesterday. O2 saturations 95-96%. Will wean PEEP. Down to 10 in effort to lower PEEP for trach which I believe she will need. No weaning on drips yet. Will need trach and PEG. O2 saturations worse, in mid to low 80s on 100%. Talked with Dr. Owen regarding need for trach next week. 04/23: Remains intubated. On rocuronium, Versed and fentanyl infusions. FiO2 95%. PRVC. WBC 13.6. D-dimer 3.14. CRP 59.1. Magnesium 1.5. 04/24: Rocuronium was discontinued yesterday. The patient's ventilator mode was switched to BiVENT. Versed changed to propofol. Still on fentanyl. On BiVENT. [place] sedated. 04/25: Yesterday afternoon, she developed acute hypoxemic decompensation followed by profound hypotension. Clinically, this was highly suspicious for pulmonary embolism. She was started on heparin infusion. SVO2 was found to be 15%. She was started on dobutamine. Ventilator settings were changed. She is still on BiVENT/APRV but now with settings that closely mimic inverse I:E pressure control ventilation. FiO2 100%. P high 20, P low 10, T high 1.5, T low 0.5. 04/26: COVID-19 (HUGH from 04/23) finally returned to negative result. Dobutamine changed to milrinone yesterday. Still on BiVENT/APRV but has been tolerating lower pressures in longer T high times. Had an episode of oxygen desaturation again this morning. Clinically, it appears that she is having increased secretions from the airway, possibly with mucous plugging. Settings were changed subsequent to oxygen desaturation: P high 30, P low 10, T high 1.5, T low 0.5. ABG this a.m.: 7.36/51/69. Diuresing, -869 mL yesterday. proBNP 5880. BM +. 04/27: [place] sedated, synchronous with ventilator. BG this a.m. 7.28/64/78. WBC 25.8 this AM. CRP 200. D-dimer 2.04. 04/28: WBC down to 25.8>14.8 this AM. Not on antibiotics. However, hemoglobin also dropped to 6.6. Repeat hemoglobin 6.2. No obvious blood loss. Blood urine and tracheal aspirate cultures from 04/27 pending. On propofol/Pre cedex/fentanyl. Triglycerides 183. 04/29: Febrile (T-max 24-hour 102.7 Fahrenheit), reportedly refractory to Tylenol and cooling blanket. WBC 28.3. Hemoglobin 6.2>9 after transfusion of 2 units PRBC yesterday. Started on vancomycin overnight due to gram-positive cocci in trach aspirate (04/27), which are now being reported as MRSA. Also, blood cultures (1 of 2) are growing out Staphylococcus species, possibly a contaminant. Still on propofol/Precedex/fentanyl for sedation. Started Versed overnight as well. On BiVENT/APRV: P high 20, P low 3, T high 5.5, T low 0.5. + PSV 15. 04/30: Bun/Cr slightly up. Vancomycin stopped. Linezolid started. Off propofol, may have had propofol infusion syndrome. Review of systems relevant to events:: Pulmonary. Reason for ICU Addmission:: acute respiratory failure, covid -19 pneumonia, intubated. - Medications: Medications reviewed and adjusted accordingly: Yes Vasopressors:: Vasopressin Sedation:: Precedex, fentanyl, versed. Physical Exam Vital Signs: Temp Pulse Resp BP Pulse Ox 100.8 F H 107 H 34 H 113/89 H 94 04/30/20 08:00 04/30/20 08:30 04/30/20 08:30 04/30/20 08:00 04/30/20 08:30 Intake & Output 04/29/20 04/30/20 05/01/20 06:59 06:59 06:59 Intake Total 4023 2305 Output Total 3775 1228 0 Balance 248 1077 0 Weight 154.5 kg 157.4 kg Weight/Height Weight 157.4 kg Height 5 ft 3 in General appearance: PRESENT: no acute distress, morbidly obese Head exam: PRESENT: atraumatic, normocephalic Eye exam: PRESENT: conjunctiva pink, EOMI, PERRLA. ABSENT: scleral icterus Ear exam: PRESENT: normal external ear exam Mouth exam: PRESENT: moist, tongue midline Respiratory exam: PRESENT: clear to auscultation reji. ABSENT: rales, rhonchi, wheezes Cardiovascular exam: PRESENT: RRR, tachycardia. ABSENT: diastolic murmur, rubs, systolic murmur GI/Abdominal exam: PRESENT: normal bowel sounds, soft. ABSENT: distended, guarding, mass, organolmegaly, rebound, tenderness Rectal exam: PRESENT: deferred Gentrourinary exam: PRESENT: indwelling catheter Extremities exam: PRESENT: full ROM. ABSENT: calf tenderness, clubbing, pedal edema Neurological exam: PRESENT: altered, other - Heavily sedated. Skin exam: PRESENT: dry, intact, warm. ABSENT: cyanosis, rash Tubes/Lines: PRESENT: Endotracheal Tube, Central Line, Nasogastic Tube Laboratory/Radiographs Laboratory Results: 04/30/20 03:50 04/30/20 03:50 04/29/20 04/29/20 04/29/20 10:00 16:00 16:00 WBC RBC Hgb Hct MCV MCH MCHC RDW Plt Count Carbonic Acid 1.51 H HCO3/H2CO3 Ratio 17:1 ABG pH 7.34 L ABG pCO2 50.3 H ABG pO2 48.4 L ABG HCO3 26.5 H ABG O2 Saturation 81.3 L ABG Base Excess 0.3 FiO2 100% Sodium 133.4 L Potassium 6.1 H* D Chloride 98 Carbon Dioxide 21 L Anion Gap 14 BUN 35 H Creatinine 1.04 Est GFR ( Amer) > 60 Glucose 246 H Calcium 8.4 Phosphorus Magnesium 2.3 Total Bilirubin AST Alkaline Phosphatase Total Protein Albumin 04/29/20 04/29/20 04/30/20 18:00 18:00 03:50 WBC 31.5 H* RBC 3.42 L Hgb 8.7 L Hct 27.1 L MCV 79 L MCH 25.5 L MCHC 32.2 RDW 24.4 H Plt Count 171 Carbonic Acid 1.68 H HCO3/H2CO3 Ratio 13:1 ABG pH 7.22 L ABG pCO2 55.9 H ABG pO2 63.5 L ABG HCO3 22.3 ABG O2 Saturation 87.4 L ABG Base Excess -5.6 FiO2 100% Sodium 134.3 L Potassium 5.9 H Chloride 99 Carbon Dioxide 23 Anion Gap 12 BUN 36 H Creatinine 0.95 Est GFR ( Amer) > 60 Glucose 220 H Calcium 8.5 Phosphorus Magnesium Total Bilirubin 1.3 AST 67 H Alkaline Phosphatase 119 Total Protein 6.4 Albumin 2.9 L 04/30/20 04/30/20 03:50 03:50 WBC RBC Hgb Hct MCV MCH MCHC RDW Plt Count Carbonic Acid 1.77 H HCO3/H2CO3 Ratio 14:1 ABG pH 7.26 L ABG pCO2 58.8 H ABG pO2 63.0 L ABG HCO3 25.8 H ABG O2 Saturation 88.3 L ABG Base Excess -1.9 FiO2 100% Sodium 134.0 L Potassium 5.8 H Chloride 97 L Carbon Dioxide 27 Anion Gap 10 BUN 41 H Creatinine 1.27 H Est GFR ( Amer) 56 L Glucose 198 H Calcium 8.2 L Phosphorus 6.4 H Magnesium 1.9 Total Bilirubin AST Alkaline Phosphatase Total Protein Albumin 04/27/20 18:07 Blood Blood Culture (PCR) - Final Staphylococcus Species 04/27/20 13:25 Fernandez Catheter Urine Culture - Final C.albicans/C.dubliniensis 04/27/20 13:25 Tracheal Aspirate Gram Stain - Final 04/27/20 13:25 Tracheal Aspirate Sputum Culture - Final Mrsa (Meth Resis Staph Aureus) Normal Chloe 03/21/20 04/11/20 04/14/20 21:58 03:05 01:59 Creatine Kinase Troponin I < 0.012 NT-Pro-B Natriuret Pep 192 H 184 H 04/24/20 04/25/20 04/26/20 14:18 09:01 03:53 Creatine Kinase Troponin I 0.012 NT-Pro-B Natriuret Pep 7620 H 5880 H 04/30/20 03:50 Creatine Kinase 301 H Troponin I NT-Pro-B Natriuret Pep Impressions: Abdomen Ultrasound 04/10/20 00:00 IMPRESSION: NO EVIDENCE FOR ASCITES. KUB X-Ray 04/29/20 00:00 IMPRESSION: NG tube is present with side port and tip overlying the body of the stomach. Chest X-Ray 04/29/20 16:06 IMPRESSION: Cannot definitively exclude a tiny left apical pneumothorax. Appe arance of the chest is otherwise not significantly changed. All labs, radiographs, diagnostic studies and EKGs were personally reviewed: Yes In addition, reports of radiographic and diagnostic studies were read: Yes Assessment and Plan - Diagnosis (1) Pneumonia due to COVID-19 virus Is this a current diagnosis for this admission?: Yes Plan: Still needing high FIO2. No real room to make vent changes. Prognosis has not changed for the better or worse in quite a while. (2) Morbid obesity with BMI of 50.0-59.9, adult Is this a current diagnosis for this admission?: Yes Plan: No change. (3) Anemia Is this a current diagnosis for this admission?: Yes Plan: Stable (4) Leukocytosis Qualifiers: Leukocytosis type: unspecified Qualified Code(s): D72.829 - Elevated white blood cell count, unspecified Is this a current diagnosis for this admission?: Yes Plan: There is no sign of additional infection. This could be propofol infusion syndrome. MRSA in sputum, now on linezolid. Fever done recheck labs in AM. Plan Summary: Recheck labs and wean vent as tolerated. Critical Time Critical Time (minutes): 35 Level of Care: ICU Anticipated discharge: SNF Anticipated DC Timeframe: Other -: 1. The care of a critical patient is a dynamic process. This note is a life assurance representative synopsis but static in nature. The timeframe for treatments given in order is not necessarily the actual time these treatments may have been done. 2. This patient requires critical care secondary to ongoing requirements for t herapy not offered or safe outside the critical care environment. Transfer to a lower level of care will result in altered life or limb morbidity and mortality. 3. Multidisciplinary rounds completed. 4. ABCDE bundle addressed.
[2020-04-30] MEDS: FLUCONAZOLE 200 MG/NS RTU 200 MG/100 ML RTUPB IV SCH (09:26)
[2020-04-30 10:06] LABS: ANION GAP 12 (5-19); BLOOD UREA NITROGEN 43 mg/dL (7-20); CALCIUM 8.3 mg/dL (8.4-10.2); CARBON DIOXIDE 26 mmol/L (22-30); CHLORIDE 96 mmol/L (98-107); GLUCOSE 171 mg/dL (75-110); POTASSIUM 5.3 mmol/L (3.6-5.0)
[2020-04-30] MEDS: SODIUM POLYSTYRENE SULFONATE 15 GM/60 ML PO SCH ×2 (11:48→21:00)
[2020-04-30] MEDS: AMINO AC/PROTEIN HYDR/WHEY PRO 11 GM/45 ML PKT NG SCH ×3 (11:49→19:03)
[2020-04-30] MEDS: FUROSEMIDE INJ/PF 40 MG/4 ML SDV IV SCH ×2 (11:49→21:00)
[2020-04-30] MEDS: FAMOTIDINE INJ/PF 20 MG/2 ML SDV IV SCH ×2 (11:51→22:00)
[2020-04-30] MEDS: METHYLPREDNISOLONE INJ 40 MG/1 ML SDV IV SCH (11:51)
[2020-04-30] MEDS: SENNOSIDES/DOCUSATE 8.6-50 MG 1 EACH TABLET NG SCH ×2 (11:52→18:31)
[2020-04-30] MEDS: ZINC SULFATE 220 MG CAPSULE NG SCH (11:56)
[2020-04-30] MEDS: CHOLECALCIFEROL (D3) 1,000 UNIT (25 MCG) TABLET NG SCH (11:56)
[2020-04-30] MEDS: ASCORBIC ACID 500 MG TABLET NG SCH ×2 (11:56→19:02)
[2020-04-30] MEDS: LINEZOLID 600 MG/300 ML RTUPB IV SCH ×2 (12:07→21:22)
[2020-04-30] MEDS: MIDAZOLAM HCL 50 MG/100 ML RTUINJ IV PRN ×2 (14:08→23:00)
[2020-04-30] MEDS: ACETAMINOPHEN SOLN 325 MG/10.15 ML UDCUP PO PRN (20:59)
[2020-05-01] MEDS: INSULIN REG, HUMAN 100 UNIT/ML 3 ML VIAL (PYX) SUBCUT SCH ×5 (00:20→23:20)
[2020-05-01] MEDS: METOCLOPRAMIDE HCL INJ/PF 10 MG/2 ML SDV IV SCH ×5 (00:20→23:20)
[2020-05-01] MEDS: FENTANYL CITRATE/PF 600 MCG/60 ML BAG IV PRN ×8 (00:35→23:22)
[2020-05-01] MEDS: DEXMEDETOMIDINE IN NS 400 MCG/100 ML RTUPB IV PRN ×5 (02:30→22:25)
[2020-05-01 04:02] LABS: HEMATOCRIT 26.7 % (36.0-47.0); HEMOGLOBIN 8.3 g/dL (12.0-15.5); MEAN CORPUSCULAR HEMOGLOBIN 24.6 pg (27.0-33.4); MEAN CORPUSCULAR HGB CONC 30.9 g/dL (32.0-36.0); MEAN CORPUSCULAR VOLUME 80 fl (80-97); PLATELET COUNT 173 10^3/uL (150-450); RED BLOOD COUNT 3.36 10^6/uL (3.72-5.28); RED CELL DISTRIBUTION WIDTH 25.4 % (11.5-14.0); WHITE BLOOD COUNT 23.2 10^3/uL (4.0-10.5)
[2020-05-01 04:19] LABS: PARTIAL THROMBOPLASTIN TIME 61.8 SEC (23.5-35.8)
[2020-05-01 04:20] LABS: D-DIMER 2.08 ug/mL (0.00-0.50)
[2020-05-01 04:21] LABS: ANION GAP 14 (5-19); BLOOD UREA NITROGEN 54 mg/dL (7-20); CALCIUM 8.2 mg/dL (8.4-10.2); CARBON DIOXIDE 23 mmol/L (22-30); CHLORIDE 97 mmol/L (98-107); GLUCOSE 264 mg/dL (75-110); TRIGLYCERIDES 195 mg/dL (<150)
[2020-05-01 04:41] LABS: C-REACTIVE PROTEIN 247.9 mg/L (<10.0)
[2020-05-01 04:43] LABS: POTASSIUM 6.2 mmol/L (3.6-5.0)
[2020-05-01 04:45] LABS: ABSOLUTE LYMPHOCYTES# (MANUAL) 1.6 10^3/uL (0.5-4.7); ABSOLUTE MONOCYTES # (MANUAL) 0.5 10^3/uL (0.1-1.4); ANISOCYTOSIS 3+; BASOPHILS % (MANUAL) 0 % (0-2); EOSINOPHILS % (MANUAL) 0 % (0-6); LYMPHOCYTES % (MANUAL) 7 % (13-45); MONOCYTES % (MANUAL) 2 % (3-13); NUCLEATED RED BLOOD CELLS 2 /100 WBC (0); POIKILOCYTOSIS 3+; SEGMENTED NEUTROPHILS % (MAN) 91 % (42-78); TOTAL CELLS COUNTED 100; TOXIC GRANULATION SLIGHT; TOXIC VACUOLATION PRESENT
[2020-05-01 04:46] LABS: BURR CELLS 1+; OVALOCYTES 2+; PLATELET COMMENT ADEQUATE; SCHISTOCYTES SLIGHT; TARGET CELLS 1+; TEAR DROP CELLS 1+
[2020-05-01] MEDS ORDERED: INSULIN REG, HUMAN 100 UNIT/ML 3 ML VIAL (PYX) IV ONE (04:59)
[2020-05-01] MEDS ORDERED: DEXTROSE 50%-WATER 25 GM/50 ML DISP.SYRIN IV ONE (05:00)
[2020-05-01] MEDS: MIDAZOLAM HCL 50 MG/100 ML RTUINJ IV PRN ×2 (06:10→17:33)
[2020-05-01] MEDS: FLUCONAZOLE 200 MG/NS RTU 200 MG/100 ML RTUPB IV SCH (08:09)
--- NOTE | 2020-05-01 08:37 | PDOC CRITICAL CARE PROG REPORT ---
General Date:: 05/01/20 ICU Day:: 36 Ventilator Day:: 36 Hospital Day:: 40 Resuscitation Status: Full Code Events in the past 12 to 24 Hours:: This 44-year-old -[place] female presented to [facility] emergency department on 03/21/2020 with complaints of possible presyncope versus syncope in addition to fever, chills, productive cough, dyspnea and exertional dyspnea. She has a history of psychiatric disorders and is known to be a difficult historian. Nonetheless, the patient also was known to have been diagnosed with COVID-19 pneumonia on 03/17/2020 and had subsequently been evaluated in the emergency department. She was apparently discharged home with prescriptions for azithromycin and other medications for symptomatic treatment. She returned with worsening shortness of breath and newly demonstrating supplemental oxygen requirement. 04/09-04/10: Remains intubated. Sedated with Precedex/Versed/fentanyl. On pressure control mode with peak and plateau pressures in the 40s. On insulin infusion for glucose control. On Glucerna + Prosource. KUB obtained showed a gasless abdomen, incongruent with physical exam (possibly due to morbid obesity). Still no BM. 04/11-: Had brisk diuresis with furosemide 40 mg IV single dose (2600 mL urine output), which resulted in a decrease in CVP. However, CVP is now back up to 910. On PRVC mode. ABG this a.m.: 7.46/46/53. Creatinine 0.6. WBC 17.3>11.4. Still no BM. On Versed/fentanyl/Precedex for sedation. Opens eyes to physical stimuli. Tube feeding currently on hold due to high residuals. Of note, even in the absence of tube feeding, the patient is having gastric residuals in the 200s. She does demonstrate spontaneous eye opening. She does not follow commands. 04/13-: Switched to BiVENT/APRV on 04/12/2020 (FiO2 80%, P high 17, T high 9.5 seconds, P low 3, T low 0.5 seconds). ABG this a.m.: 7.42/50/72. Off insulin infusion. Overnight, the patient had an episode of hypoglycemia (40) despite being on trickle tube feeds. Blood cultures (04/13) isolated gram-positive cocci in clusters. Tracheal aspirate (04/13) isolated Staphylococcus aureus. GPC is MSSA sens to rocephin. Still unsure if it's a contaminate. No progress made on ventilator. Changed back to PRVC on 04/16. Still 100% and PEEP 14. 04/18: CXR looks better. Will try weaning today. FiO2 first. 04/19-: Not able to wean yesterday. O2 saturations 95-96%. Will wean PEEP. Down to 10 in effort to lower PEEP for trach which I believe she will need. No weaning on drips yet. Will need trach and PEG. O2 saturations worse, in mid to low 80s on 100%. Talked with Dr. Owen regarding need for trach next week. 04/23: Remains intubated. On rocuronium, Versed and fentanyl infusions. FiO2 95%. PRVC. WBC 13.6. D-dimer 3.14. CRP 59.1. Magnesium 1.5. 04/24: Rocuronium was discontinued yesterday. The patient's ventilator mode was switched to BiVENT. Versed changed to propofol. Still on fentanyl. On BiVENT. [place] sedated. 04/25: Yesterday afternoon, she developed acute hypoxemic decompensation followed by profound hypotension. Clinically, this was highly suspicious for pulmonary embolism. She was started on heparin infusion. SVO2 was found to be 15%. She was started on dobutamine. Ventilator settings were changed. She is still on BiVENT/APRV but now with settings that closely mimic inverse I:E pressure control ventilation. FiO2 100%. P high 20, P low 10, T high 1.5, T low 0.5. 04/26: COVID-19 (HUGH from 04/23) finally returned to negative result. Dobutamine changed to milrinone yesterday. Still on BiVENT/APRV but has been tolerating lower pressures in longer T high times. Had an episode of oxygen desaturation again this morning. Clinically, it appears that she is having increased secretions from the airway, possibly with mucous plugging. Settings were changed subsequent to oxygen desaturation: P high 30, P low 10, T high 1.5, T low 0.5. ABG this a.m.: 7.36/51/69. Diuresing, -869 mL yesterday. proBNP 5880. BM +. 04/27: [place] sedated, synchronous with ventilator. BG this a.m. 7.28/64/78. WBC 25.8 this AM. CRP 200. D-dimer 2.04. 04/28: WBC down to 25.8>14.8 this AM. Not on antibiotics. However, hemoglobin also dropped to 6.6. Repeat hemoglobin 6.2. No obvious blood loss. Blood urine and tracheal aspirate cultures from 04/27 pending. On propofol/Pre cedex/fentanyl. Triglycerides 183. 04/29: Febrile (T-max 24-hour 102.7 Fahrenheit), reportedly refractory to Tylenol and cooling blanket. WBC 28.3. Hemoglobin 6.2>9 after transfusion of 2 units PRBC yesterday. Started on vancomycin overnight due to gram-positive cocci in trach aspirate (04/27), which are now being reported as MRSA. Also, blood cultures (1 of 2) are growing out Staphylococcus species, possibly a contaminant. Still on propofol/Precedex/fentanyl for sedation. Started Versed overnight as well. On BiVENT/APRV: P high 20, P low 3, T high 5.5, T low 0.5. + PSV 15. 04/30: Bun/Cr slightly up. Vancomycin stopped. Linezolid started. Off propofol, may have had propofol infusion syndrome. 05/01: Only small changes in vent made as tolerated. Review of systems relevant to events:: Pulmonary Reason for ICU Addmission:: acute respiratory failure, covid -19 pneumonia, intubated. - Medications: Medications reviewed and adjusted accordingly: Yes Vasopressors:: None Sedation:: Fentanyl, versed, precedex. Physical Exam Vital Signs: Temp Pulse Resp BP Pulse Ox 100.4 F 99 40 H 96/78 L 90 L 05/01/20 06:00 04/30/20 20:00 04/30/20 19:43 05/01/20 07:32 05/01/20 07:32 Intake & Output 04/30/20 05/01/20 05/02/20 06:59 06:59 06:59 Intake Total 2305 1997 Output Total 1228 985 Balance 1077 1012 Weight 157.4 kg 158.7 kg Weight/Height Weight 158.7 kg Height 5 ft 3 in General appearance: PRESENT: no acute distress Head exam: PRESENT: atraumatic, normocephalic Eye exam: PRESENT: conjunctiva pink, EOMI, PERRLA. ABSENT: scleral icterus Ear exam: PRESENT: normal external ear exam Mouth exam: PRESENT: moist, tongue midline Respiratory exam: PRESENT: clear to auscultation reji, decreased breath sounds. ABSENT: rales, rhonchi, wheezes Cardiovascular exam: PRESENT: RRR. ABSENT: diastolic murmur, rubs, systolic murmur GI/Abdominal exam: PRESENT: normal bowel sounds, soft. ABSENT: distended, guarding, mass, organolmegaly, rebound, tenderness Rectal exam: PRESENT: deferred Gentrourinary exam: PRESENT: indwelling catheter Extremities exam: PRESENT: full ROM. ABSENT: calf tenderness, clubbing, pedal edema Musculoskeletal exam: PRESENT: normal inspection Neurological exam: PRESENT: altered, other - Sedated Skin exam: PRESENT: dry, intact, warm. ABSENT: cyanosis, rash Tubes/Lines: PRESENT: Endotracheal Tube, Nasogastic Tube Laboratory/Radiographs Laboratory Results: 05/01/20 03:40 05/01/20 03:40 04/30/20 04/30/20 05/01/20 09:05 18:35 03:40 WBC 23.2 H RBC 3.36 L Hgb 8.3 L Hct 26.7 L MCV 80 MCH 24.6 L MCHC 30.9 L RDW 25.4 H Plt Count 173 Seg Neutrophils % Not Reportable Sodium 134.1 L Potassium 5.3 H Chloride 96 L Carbon Dioxide 26 Anion Gap 12 BUN 43 H Creatinine 1.27 H 1.13 Est GFR ( Amer) 56 L > 60 Glucose 171 H Calcium 8.3 L C-Reactive Protein Triglycerides 05/01/20 03:40 WBC RBC Hgb Hct MCV MCH MCHC RDW Plt Count Seg Neutrophils % Sodium 134.4 L Potassium 6.2 H* Chloride 97 L Carbon Dioxide 23 Anion Gap 14 BUN 54 H Creatinine 1.43 H Est GFR ( Amer) 49 L Glucose 264 H Calcium 8.2 L C-Reactive Protein 247.9 H Triglycerides 195 H 04/27/20 18:07 Blood Blood Culture (PCR) - Final Staphylococcus Species 03/21/20 04/11/20 04/14/20 21:58 03:05 01:59 Creatine Kinase Troponin I < 0.012 NT-Pro-B Natriuret Pep 192 H 184 H 04/24/20 04/25/20 04/26/20 14:18 09:01 03:53 Creatine Kinase Troponin I 0.012 NT-Pro-B Natriuret Pep 7620 H 5880 H 04/30/20 03:50 Creatine Kinase 301 H Troponin I NT-Pro-B Natriuret Pep Impressions: Abdomen Ultrasound 04/10/20 00:00 IMPRESSION: NO EVIDENCE FOR ASCITES. KUB X-Ray 04/29/20 00:00 IMPRESSION: NG tube is present with side port and tip overlying the body of the stomach. Chest X-Ray 04/29/20 16:06 IMPRESSION: Cannot definitively exclude a tiny left apical pneumothorax. Appearance of the chest is otherwise not significantly changed. All labs, radiographs, diagnostic studies and EKGs were personally reviewed: Yes In addition, reports of radiographic and diagnostic studies were read: Yes Assessment and Plan - Diagnosis (1) Pneumonia due to COVID-19 virus Is this a current diagnosis for this admission?: Yes Plan: Only able to make small changes on vent. (2) Morbid obesity with BMI of 50.0-59.9, adult Is this a current diagnosis for this admission?: Yes Plan: Chronic and a covid mortality risk factor. (3) Anemia Is this a current diagnosis for this admission?: Yes Plan: Hgb level 8.3. Stable given medical issues. (4) Leukocytosis Qualifiers: Leukocytosis type: unspecified Qualified Code(s): D72.829 - Elevated white blood cell count, unspecified Is this a current diagnosis for this admission?: Yes Plan: Better from WBC 33 to 23 overnight. Plan Summary: Try to wean down sedation as tolerated. Critical Time Critical Time (minutes): 35 Level of Care: ICU Anticipated discharge: SNF Anticipated DC Timeframe: Other -: 1. The care of a critical patient is a dynamic process. This note is a district sales representative synopsis but static in nature. The timeframe for treatments given in order is not necessarily the actual time these treatments may have been done. 2. This patient requires critical care secondary to ongoing requirements for therapy not offered or safe outside the critical care environment. Transfer to a lower level of care will result in altered life or limb morbidity and mortality. 3. Multidisciplinary rounds completed. 4. ABCDE bundle addressed.
[2020-05-01] MEDS: BUDESONIDE NEB 0.25 MG/2 ML AMPUL NEB SCH ×2 (08:55→19:30)
[2020-05-01] MEDS: ALBUTEROL SULFATE 0.083% NEB 2.5 MG/3 ML AMPUL NEB PRN ×2 (08:55→19:30)
[2020-05-01] MEDS: LINEZOLID 600 MG/300 ML RTUPB IV SCH ×2 (09:43→23:21)
[2020-05-01] MEDS: AMINO AC/PROTEIN HYDR/WHEY PRO 11 GM/45 ML PKT NG SCH ×3 (09:44→17:32)
[2020-05-01] MEDS: FUROSEMIDE INJ/PF 40 MG/4 ML SDV IV SCH ×2 (09:44→23:19)
[2020-05-01] MEDS: FAMOTIDINE INJ/PF 20 MG/2 ML SDV IV SCH ×2 (09:44→23:19)
[2020-05-01] MEDS: ASCORBIC ACID 500 MG TABLET NG SCH ×2 (09:45→17:32)
[2020-05-01] MEDS: CHOLECALCIFEROL (D3) 1,000 UNIT (25 MCG) TABLET NG SCH (09:45)
[2020-05-01] MEDS: SENNOSIDES/DOCUSATE 8.6-50 MG 1 EACH TABLET NG SCH ×2 (09:45→17:32)
[2020-05-01] MEDS: ZINC SULFATE 220 MG CAPSULE NG SCH (09:45)
[2020-05-01] MEDS: METHYLPREDNISOLONE INJ 40 MG/1 ML SDV IV SCH (09:46)
[2020-05-01] MEDS: HEPARIN SODIUM,PORCINE/D5W 25,000 UNIT/250 ML RTUINJ IV PRN (16:47)
[2020-05-01 18:36] LABS: ANION GAP 11 (5-19); BLOOD UREA NITROGEN 64 mg/dL (7-20); CALCIUM 8.5 mg/dL (8.4-10.2); CARBON DIOXIDE 26 mmol/L (22-30); CHLORIDE 96 mmol/L (98-107); GLUCOSE 317 mg/dL (75-110); POTASSIUM 5.8 mmol/L (3.6-5.0)
[2020-05-02] MEDS: DEXMEDETOMIDINE IN NS 400 MCG/100 ML RTUPB IV PRN ×5 (03:55→23:12)
[2020-05-02] MEDS: FENTANYL CITRATE/PF 600 MCG/60 ML BAG IV PRN ×6 (04:00→23:05)
[2020-05-02] MEDS: METOCLOPRAMIDE HCL INJ/PF 10 MG/2 ML SDV IV SCH ×4 (05:17→23:01)
[2020-05-02] MEDS: INSULIN REG, HUMAN 100 UNIT/ML 3 ML VIAL (PYX) SUBCUT SCH ×4 (05:18→23:11)
[2020-05-02] MEDS: HEPARIN SODIUM,PORCINE/D5W 25,000 UNIT/250 ML RTUINJ IV PRN ×2 (05:25→23:12)
[2020-05-02] MEDS: MIDAZOLAM HCL 50 MG/100 ML RTUINJ IV PRN ×2 (05:25→18:06)
[2020-05-02 06:01] LABS: ANION GAP 13 (5-19); BLOOD UREA NITROGEN 70 mg/dL (7-20); CALCIUM 8.3 mg/dL (8.4-10.2); CARBON DIOXIDE 26 mmol/L (22-30); CHLORIDE 95 mmol/L (98-107); GLUCOSE 329 mg/dL (75-110); POTASSIUM 5.4 mmol/L (3.6-5.0)
[2020-05-02] MEDS: HEPARIN SOD (PORCINE) 1,000 UNIT/ML 10 ML VIAL IV PRN (06:25)
[2020-05-02] MEDS: BUDESONIDE NEB 0.25 MG/2 ML AMPUL NEB SCH ×2 (07:48→20:52)
[2020-05-02] MEDS: ALBUTEROL SULFATE 0.083% NEB 2.5 MG/3 ML AMPUL NEB PRN (07:48)
[2020-05-02 07:53] LABS: HEMATOCRIT 23.6 % (36.0-47.0); MEAN CORPUSCULAR HEMOGLOBIN 25.2 pg (27.0-33.4); MEAN CORPUSCULAR HGB CONC 31.9 g/dL (32.0-36.0); MEAN CORPUSCULAR VOLUME 79 fl (80-97); PLATELET COUNT 153 10^3/uL (150-450); RED BLOOD COUNT 2.98 10^6/uL (3.72-5.28); RED CELL DISTRIBUTION WIDTH 24.7 % (11.5-14.0); WHITE BLOOD COUNT 17.5 10^3/uL (4.0-10.5)
[2020-05-02] MEDS: FLUCONAZOLE 200 MG/NS RTU 200 MG/100 ML RTUPB IV SCH (08:08)
[2020-05-02 08:40] LABS: HEMOGLOBIN 7.5 g/dL (12.0-15.5)
[2020-05-02] MEDS: METHYLPREDNISOLONE INJ 40 MG/1 ML SDV IV SCH (10:11)
[2020-05-02] MEDS: FAMOTIDINE INJ/PF 20 MG/2 ML SDV IV SCH ×2 (10:11→22:59)
[2020-05-02] MEDS: LINEZOLID 600 MG/300 ML RTUPB IV SCH ×2 (10:11→22:59)
[2020-05-02] MEDS: AMINO AC/PROTEIN HYDR/WHEY PRO 11 GM/45 ML PKT NG SCH ×3 (10:11→18:03)
[2020-05-02] MEDS: ASCORBIC ACID 500 MG TABLET NG SCH (10:12)
[2020-05-02] MEDS: CHOLECALCIFEROL (D3) 1,000 UNIT (25 MCG) TABLET NG SCH (10:12)
[2020-05-02] MEDS: SENNOSIDES/DOCUSATE 8.6-50 MG 1 EACH TABLET NG SCH ×2 (10:12→18:03)
[2020-05-02] MEDS: FUROSEMIDE INJ/PF 40 MG/4 ML SDV IV SCH ×2 (10:12→22:58)
[2020-05-02] MEDS: ZINC SULFATE 220 MG CAPSULE NG SCH (10:12)
[2020-05-02 12:38] LABS: ARTERIAL BLOOD BASE EXCESS -2.7 mmol/L; ARTERIAL BLOOD H2CO3 1.26 mmol/L (1.05-1.35); ARTERIAL BLOOD HCO3 22.7 mmol/L (20-24); ARTERIAL BLOOD O2 SATURATION 88.8 % (94-98); ARTERIAL BLOOD PCO2 41.7 mmHg (35-45); ARTERIAL BLOOD PH 7.35 (7.35-7.45); ARTERIAL BLOOD PO2 57.6 mmHg (80-100)
[2020-05-02 12:39] LABS: ARTERIAL BLOOD FIO2 100%
--- NOTE | 2020-05-02 16:24 | PDOC CRITICAL CARE PROG REPORT ---
General Date:: 05/02/20 ICU Day:: 37 Ventilator Day:: 37 Hospital Day:: 41 Resuscitation Status: Full Code Events in the past 12 to 24 Hours:: This 44-year-old -[place] female presented to [facility] emergency department on 03/21/2020 with complaints of possible presyncope versus syncope in addition to fever, chills, productive cough, dyspnea and exertional dyspnea. She has a history of psychiatric disorders and is known to be a difficult historian. Nonetheless, the patient also was known to have been diagnosed with COVID-19 pneumonia on 03/17/2020 and had subsequently been evaluated in the emergency department. She was apparently discharged home with prescriptions for azithromycin and other medications for symptomatic treatment. She returned with worsening shortness of breath and newly demonstrating supplemental oxygen requirement. 04/09-04/10: Remains intubated. Sedated with Precedex/Versed/fentanyl. On pressure control mode with peak and plateau pressures in the 40s. On insulin infusion for glucose control. On Glucerna + Prosource. KUB obtained showed a gasless abdomen, incongruent with physical exam (possibly due to morbid obesity). Still no BM. 04/11-: Had brisk diuresis with furosemide 40 mg IV single dose (2600 mL urine output), which resulted in a decrease in CVP. However, CVP is now back up to 910. On PRVC mode. ABG this a.m.: 7.46/46/53. Creatinine 0.6. WBC 17.3>11.4. Still no BM. On Versed/fentanyl/Precedex for sedation. Opens eyes to physical stimuli. Tube feeding currently on hold due to high residuals. Of note, even in the absence of tube feeding, the patient is having gastric residuals in the 200s. She does demonstrate spontaneous eye opening. She does not follow commands. 04/13-: Switched to BiVENT/APRV on 04/12/2020 (FiO2 80%, P high 17, T high 9.5 seconds, P low 3, T low 0.5 seconds). ABG this a.m.: 7.42/50/72. Off insulin infusion. Overnight, the patient had an episode of hypoglycemia (40) despite being on trickle tube feeds. Blood cultures (04/13) isolated gram-positive cocci in clusters. Tracheal aspirate (04/13) isolated Staphylococcus aureus. GPC is MSSA sens to rocephin. Still unsure if it's a contaminate. No progress made on ventilator. Changed back to PRVC on 04/16. Still 100% and PEEP 14. 04/18: CXR looks better. Will try weaning today. FiO2 first. 04/19-: Not able to wean yesterday. O2 saturations 95-96%. Will wean PEEP. Down to 10 in effort to lower PEEP for trach which I believe she will need. No weaning on drips yet. Will need trach and PEG. O2 saturations worse, in mid to low 80s on 100%. Talked with Dr. Owen regarding need for trach next week. 04/23: Remains intubated. On rocuronium, Versed and fentanyl infusions. FiO2 95%. PRVC. WBC 13.6. D-dimer 3.14. CRP 59.1. Magnesium 1.5. 04/24: Rocuronium was discontinued yesterday. The patient's ventilator mode was switched to BiVENT. Versed changed to propofol. Still on fentanyl. On BiVENT. [place] sedated. 04/25: Yesterday afternoon, she developed acute hypoxemic decompensation followed by profound hypotension. Clinically, this was highly suspicious for pulmonary embolism. She was started on heparin infusion. SVO2 was found to be 15%. She was started on dobutamine. Ventilator settings were changed. She is still on BiVENT/APRV but now with settings that closely mimic inverse I:E pressure control ventilation. FiO2 100%. P high 20, P low 10, T high 1.5, T low 0.5. 04/26: COVID-19 (HUGH from 04/23) finally returned to negative result. Dobutamine changed to milrinone yesterday. Still on BiVENT/APRV but has been tolerating lower pressures in longer T high times. Had an episode of oxygen desaturation again this morning. Clinically, it appears that she is having increased secretions from the airway, possibly with mucous plugging. Settings were changed subsequent to oxygen desaturation: P high 30, P low 10, T high 1.5, T low 0.5. ABG this a.m.: 7.36/51/69. Diuresing, -869 mL yesterday. proBNP 5880. BM +. 04/27: [place] sedated, synchronous with ventilator. BG this a.m. 7.28/64/78. WBC 25.8 this AM. CRP 200. D-dimer 2.04. 04/28: WBC down to 25.8>14.8 this AM. Not on antibiotics. However, hemoglobin also dropped to 6.6. Repeat hemoglobin 6.2. No obvious blood loss. Blood urine and tracheal aspirate cultures from 04/27 pending. On propofol/Pre cedex/fentanyl. Triglycerides 183. 04/29: Febrile (T-max 24-hour 102.7 Fahrenheit), reportedly refractory to Tylenol and cooling blanket. WBC 28.3. Hemoglobin 6.2>9 after transfusion of 2 units PRBC yesterday. Started on vancomycin overnight due to gram-positive cocci in trach aspirate (04/27), which are now being reported as MRSA. Also, blood cultures (1 of 2) are growing out Staphylococcus species, possibly a contaminant. Still on propofol/Precedex/fentanyl for sedation. Started Versed overnight as well. On BiVENT/APRV: P high 20, P low 3, T high 5.5, T low 0.5. + PSV 15. 04/30: Bun/Cr slightly up. Vancomycin stopped. Linezolid started. Off propofol, may have had propofol infusion syndrome. 05/01: Only small changes in vent made as tolerated. 05/02: Decrease in H/H today, likely anemia of chronic disease. No apparent signs of bleeding. I was able to lower her inspiratory time (PEEP high) slightly without any significant change in SPO2. Her FiO2 was also decreased to 90%. No other significant changes. Plan will be to consult surgery for tracheostomy placement. Review of systems relevant to events:: Neuro: Patient remains responsive to discomfort but not to voice. She is currently on Precedex, Versed and fentanyl. Plan: Decrease sedation as tolerated to allow better engagement in the vent weaning process. Pulmonary: Patient remains on bilevel ventilation. PEEP high is 30, PEEP low is 8, FiO2 weaned to 90%. Patient maintains SPO2 of 90% on the settings. ABG was relatively normal on these vent settings which yielded a minute ventilation of 16 LPM. Plan: Maintain current vent settings. Wean FiO2 as tolerated to maintain SPO2 88 to 90%. Cardiovascular: Patient has been hemodynamically stable off of vasoactive medications. Plan: Continue to monitor closely. Indwelling catheters: Left IJ TLC. Heme: As above, patient has had a drop in her hemoglobin from 8.3-7.5 this morning. No apparent source of bleeding. Plan: Repeat CBC in a.m., will transfuse 2 units PRBC if CBC shows hemoglobin less than 7. DVT prophylaxis: Patient remains on heparin drip. Renal: BUN and creatinine remain elevated. Potassium is elevated but has improved since yesterday. Repeat renal panel in a.m. Patient continues to make urine. If patient requires further volume resuscitation tomorrow, we will treat with albumin. Gastrointestinal: Patient receiving tube feeds Glucerna at 30 mL an hour. GI prophylaxis: Continue Pepcid. : Indwelling Fernandez catheter. ID: WBC although elevated has been improving. Trach aspirate showing MRSA, currently being treated with linezolid. Patient is also on fluconazole for both Oralia in urine and possibly a fungal infection in the sputum. Awaiting results of fungal culture. Barriers to discharge from ICU: Patient still remains in severe respiratory failure requiring high levels of bilevel ventilation. Unable to wean due to severe hypoxemia and poor AA gradient. Reason for ICU Addmission:: acute respiratory failure, covid -19 pneumonia, intubated. - Medications: Medications reviewed and adjusted accordingly: Yes Physical Exam Vital Signs: Temp Pulse Resp BP Pulse Ox 98.6 F 71 42 H 137/90 H 94 05/02/20 12:00 05/02/20 12:00 05/02/20 12:00 05/02/20 14:03 05/02/20 14:03 Intake & Output 05/01/20 05/02/20 05/03/20 06:59 06:59 06:59 Intake Total 2297 1656 225 Output Total 985 2175 1245 Balance 1312 -519 -1020 Weight 158.7 kg 162.5 kg Weight/Height Weight 162.5 kg Height 5 ft 3 in General appearance: PRESENT: no acute distress, morbidly obese Head exam: PRESENT: atraumatic, normocephalic Eye exam: PRESENT: EOMI, PERRLA Ear exam: PRESENT: normal external ear exam Mouth exam: PRESENT: moist, neck supple Neck exam: PRESENT: full ROM. ABSENT: JVD, lymphadenopathy Respiratory exam: PRESENT: symmetrical, other - Diminished breath sounds likely secondary to body habitus.. ABSENT: accessory muscle use, rhonchi, wheezes Cardiovascular exam: PRESENT: RRR Pulses: PRESENT: normal carotid pulses, normal radial pulses Vascular exam: PRESENT: normal capillary refill GI/Abdominal exam: PRESENT: normal bowel sounds, soft Extremities exam: PRESENT: full ROM, pedal edema, +2 edema Musculoskeletal exam: PRESENT: full ROM, normal inspection Neurological exam: PRESENT: CN II-XII grossly intact. ABSENT: alert, awake Psychiatric exam: ABSENT: agitated Skin exam: PRESENT: normal color Tubes/Lines: PRESENT: Endotracheal Tube, Central Line Laboratory/Radiographs Laboratory Results: 05/02/20 05:10 05/02/20 05:10 05/01/20 05/02/20 05/02/20 17:45 05:10 05:10 WBC 17.5 H RBC 2.98 L Hgb 7.5 L Hct 23.6 L MCV 79 L MCH 25.2 L MCHC 31.9 L RDW 24.7 H Plt Count 153 Carbonic Acid HCO3/H2CO3 Ratio ABG pH ABG pCO2 ABG pO2 ABG HCO3 ABG O2 Saturation ABG Base Excess FiO2 Sodium 133.3 L 133.5 L Potassium 5.8 H 5.4 H Chloride 96 L 95 L Carbon Dioxide 26 26 Anion Gap 11 13 BUN 64 H 70 H Creatinine 1.69 H 1.42 H Est GFR ( Amer) 40 L 49 L Glucose 317 H 329 H Calcium 8.5 8.3 L 05/02/20 12:15 WBC RBC Hgb Hct MCV MCH MCHC RDW Plt Count Carbonic Acid 1.26 HCO3/H2CO3 Ratio 18:1 ABG pH 7.35 ABG pCO2 41.7 ABG pO2 57.6 L ABG HCO3 22.7 ABG O2 Saturation 88.8 L ABG Base Excess -2.7 FiO2 100% Sodium Potassium Chloride Carbon Dioxide Anion Gap BUN Creatinine Est GFR ( Amer) Glucose Calcium 04/27/20 13:25 Blood Blood Culture - Final NO GROWTH IN 5 DAYS 04/29/20 01:30 Bronchial Washings Fungal Smear - Final 04/29/20 01:30 Bronchial Washings Fungal Smear - Final 03/21/20 04/11/20 04/14/20 21:58 03:05 01:59 Creatine Kinase Troponin I < 0.012 NT-Pro-B Natriuret Pep 192 H 184 H 04/24/20 04/25/20 04/26/20 14:18 09:01 03:53 Creatine Kinase Troponin I 0.012 NT-Pro-B Natriuret Pep 7620 H 5880 H 04/30/20 03:50 Creatine Kinase 301 H Troponin I NT-Pro-B Natriuret Pep Impressions: Abdomen Ultrasound 04/10/20 00:00 IMPRESSION: NO EVIDENCE FOR ASCITES. KUB X-Ray 04/29/20 00:00 IMPRESSION: NG tube is present with side port and tip overlying the body of the stomach. Chest X-Ray 04/29/20 16:06 IMPRESSION: Cannot definitively exclude a tiny left apical pneumothorax. Appearance of the chest is otherwise not significantly changed. All labs, radiographs, diagnostic studies and EKGs were personally reviewed: Yes In addition, reports of radiographic and diagnostic studies were read: Yes Assessment and Plan - Diagnosis (1) ROBB (acute kidney injury) Is this a current diagnosis for this admission?: Yes Plan: ROBB likely secondary to intravascular hypovolemia despite volume resuscitation. Follow-up renal panel in a.m. If BUN/creatinine continue to increase, start IV fluids with albumin. (2) Acute hypoxemic respiratory failure Is this a current diagnosis for this admission?: Yes Plan: Please see review of systems for more detailed report. Continue bilevel ventilation. Continue to make slow progress weaning FiO2. Critical Time Critical Time (minutes): 65 Level of Care: ICU Anticipated discharge: Acute Rehab Anticipated DC Timeframe: Other - Time to discharge cannot be determined at this time given the patient's prolonged acute state with Covid pneumonia. -: 1. The care of a critical patient is a dynamic process. This note is a physician representative synopsis but static in nature. The timeframe for treatments given in order is not necessarily the actual time these treatments may have been done. 2. This patient requires critical care secondary to ongoing requirements for therapy not offered or safe outside the critical care environment. Transfer to a lower level of care will result in altered life or limb morbidity and mortality. 3. Multidisciplinary rounds completed. 4. ABCDE bundle addressed.
[2020-05-02] MEDS ORDERED: INSULIN GLARGINE,HUM.REC.ANLOG 1,000 UNIT/10 ML VIAL (PYX) SUBCUT SCH (18:00)
[2020-05-02] MEDS ORDERED: INSULIN GLARGINE,HUM.REC.ANLOG 1,000 UNIT/10 ML VIAL (PYX) SUBCUT ONE (18:00)
[2020-05-03] MEDS: FENTANYL CITRATE/PF 600 MCG/60 ML BAG IV PRN ×6 (01:45→22:03)
[2020-05-03] MEDS: DEXMEDETOMIDINE IN NS 400 MCG/100 ML RTUPB IV PRN ×4 (04:45→21:41)
[2020-05-03] MEDS: INSULIN REG, HUMAN 100 UNIT/ML 3 ML VIAL (PYX) SUBCUT SCH ×3 (06:31→18:49)
[2020-05-03] MEDS: METOCLOPRAMIDE HCL INJ/PF 10 MG/2 ML SDV IV SCH ×3 (06:31→18:48)
[2020-05-03 06:52] LABS: HEMATOCRIT 24.1 % (36.0-47.0); MEAN CORPUSCULAR HEMOGLOBIN 25.1 pg (27.0-33.4); MEAN CORPUSCULAR HGB CONC 32.2 g/dL (32.0-36.0); MEAN CORPUSCULAR VOLUME 78 fl (80-97); PLATELET COUNT 164 10^3/uL (150-450); RED BLOOD COUNT 3.09 10^6/uL (3.72-5.28); RED CELL DISTRIBUTION WIDTH 24.8 % (11.5-14.0); WHITE BLOOD COUNT 14.7 10^3/uL (4.0-10.5)
[2020-05-03 07:08] LABS: PARTIAL THROMBOPLASTIN TIME 71.7 SEC (23.5-35.8)
[2020-05-03] MEDS ORDERED: POTASSI CL 20 MEQ/50 ML RIDER 20 MEQ/50 ML RTUPB IV ONE (07:08)
[2020-05-03 07:09] LABS: D-DIMER 2.49 ug/mL (0.00-0.50)
[2020-05-03 07:13] LABS: ALBUMIN 3.3 g/dL (3.5-5.0); ALKALINE PHOSPHATASE 219 U/L (38-126); ANION GAP 15 (5-19); ASPARTATE AMINO TRANSFERASE 80 U/L (14-36); BILIRUBIN,DIRECT 1.7 mg/dL (0.0-0.4); BILIRUBIN,TOTAL 2.2 mg/dL (0.2-1.3); BLOOD UREA NITROGEN 81 mg/dL (7-20); C-REACTIVE PROTEIN 65.9 mg/L (<10.0); CALCIUM 9.2 mg/dL (8.4-10.2); CARBON DIOXIDE 26 mmol/L (22-30); CHLORIDE 96 mmol/L (98-107); GLUCOSE 340 mg/dL (75-110); POTASSIUM 5.4 mmol/L (3.6-5.0); TOTAL PROTEIN 6.7 g/dL (6.3-8.2)
[2020-05-03] MEDS: ALBUTEROL SULFATE 0.083% NEB 2.5 MG/3 ML AMPUL NEB PRN (08:05)
[2020-05-03] MEDS: BUDESONIDE NEB 0.25 MG/2 ML AMPUL NEB SCH ×2 (08:06→19:42)
[2020-05-03] MEDS: FLUCONAZOLE 200 MG/NS RTU 200 MG/100 ML RTUPB IV SCH (08:30)
[2020-05-03 08:45] LABS: ABSOLUTE LYMPHOCYTES# (MANUAL) 2.2 10^3/uL (0.5-4.7); ABSOLUTE MONOCYTES # (MANUAL) 0.7 10^3/uL (0.1-1.4); BASOPHILS % (MANUAL) 0 % (0-2); EOSINOPHILS % (MANUAL) 1 % (0-6); LYMPHOCYTES % (MANUAL) 14 % (13-45); MONOCYTES % (MANUAL) 5 % (3-13); NUCLEATED RED BLOOD CELLS 3 /100 WBC (0); SEGMENTED NEUTROPHILS % (MAN) 79 % (42-78); TOTAL CELLS COUNTED 100
[2020-05-03 08:46] LABS: ANISOCYTOSIS 3+; HYPOCHROMASIA 1+
[2020-05-03 08:47] LABS: OVALOCYTES 1+; PLATELET COMMENT ADEQUATE; POIKILOCYTOSIS 1+; POLYCHROMASIA 1+; TEAR DROP CELLS 1+
[2020-05-03 08:49] LABS: HEMOGLOBIN 7.8 g/dL (12.0-15.5)
[2020-05-03] MEDS ORDERED: ALBUMIN HUMAN 500 ML IV ONE (10:00)
[2020-05-03] MEDS: AMINO AC/PROTEIN HYDR/WHEY PRO 11 GM/45 ML PKT NG SCH ×3 (11:02→18:49)
[2020-05-03] MEDS: FAMOTIDINE INJ/PF 20 MG/2 ML SDV IV SCH ×2 (11:03→21:42)
[2020-05-03] MEDS: INSULIN GLARGINE,HUM.REC.ANLOG 1,000 UNIT/10 ML VIAL SUBCUT SCH ×2 (11:03→21:41)
[2020-05-03] MEDS: METHYLPREDNISOLONE INJ 40 MG/1 ML SDV IV SCH (11:03)
[2020-05-03] MEDS: LINEZOLID 600 MG/300 ML RTUPB IV SCH ×2 (11:04→21:42)
[2020-05-03] MEDS: SENNOSIDES/DOCUSATE 8.6-50 MG 1 EACH TABLET NG SCH ×2 (11:04→18:48)
[2020-05-03] MEDS: FUROSEMIDE INJ/PF 40 MG/4 ML SDV IV SCH ×2 (11:04→21:43)
[2020-05-03] MEDS: MIDAZOLAM HCL 50 MG/100 ML RTUINJ IV PRN (13:27)
[2020-05-03 15:00] LABS: ANION GAP 15 (5-19); BLOOD UREA NITROGEN 80 mg/dL (7-20); CALCIUM 9.5 mg/dL (8.4-10.2); CARBON DIOXIDE 26 mmol/L (22-30); CHLORIDE 96 mmol/L (98-107); GLUCOSE 356 mg/dL (75-110); POTASSIUM 5.3 mmol/L (3.6-5.0)
[2020-05-03] MEDS: LABETALOL HCL INJ 20 MG/4 ML DISP.SYRIN IV PRN (16:44)
--- NOTE | 2020-05-03 21:30 | PDOC CRITICAL CARE PROG REPORT ---
General Date:: 05/03/20 ICU Day:: 38 Ventilator Day:: 38 Hospital Day:: 42 Resuscitation Status: Full Code Events in the past 12 to 24 Hours:: This 44-year-old -[place] female presented to [facility] emergency department on 03/21/2020 with complaints of possible presyncope versus syncope in addition to fever, chills, productive cough, dyspnea and exertional dyspnea. She has a history of psychiatric disorders and is known to be a difficult historian. Nonetheless, the patient also was known to have been diagnosed with COVID-19 pneumonia on 03/17/2020 and had subsequently been evaluated in the emergency department. She was apparently discharged home with prescriptions for azithromycin and other medications for symptomatic treatment. She returned with worsening shortness of breath and newly demonstrating supplemental oxygen requirement. 04/09-04/10: Remains intubated. Sedated with Precedex/Versed/fentanyl. On pressure control mode with peak and plateau pressures in the 40s. On insulin infusion for glucose control. On Glucerna + Prosource. KUB obtained showed a gasless abdomen, incongruent with physical exam (possibly due to morbid obesity). Still no BM. 04/11-: Had brisk diuresis with furosemide 40 mg IV single dose (2600 mL urine output), which resulted in a decrease in CVP. However, CVP is now back up to 910. On PRVC mode. ABG this a.m.: 7.46/46/53. Creatinine 0.6. WBC 17.3>11.4. Still no BM. On Versed/fentanyl/Precedex for sedation. Opens eyes to physical stimuli. Tube feeding currently on hold due to high residuals. Of note, even in the absence of tube feeding, the patient is having gastric residuals in the 200s. She does demonstrate spontaneous eye opening. She does not follow commands. 04/13-: Switched to BiVENT/APRV on 04/12/2020 (FiO2 80%, P high 17, T high 9.5 seconds, P low 3, T low 0.5 seconds). ABG this a.m.: 7.42/50/72. Off insulin infusion. Overnight, the patient had an episode of hypoglycemia (40) despite being on trickle tube feeds. Blood cultures (04/13) isolated gram-positive cocci in clusters. Tracheal aspirate (04/13) isolated Staphylococcus aureus. GPC is MSSA sens to rocephin. Still unsure if it's a contaminate. No progress made on ventilator. Changed back to PRVC on 04/16. Still 100% and PEEP 14. 04/18: CXR looks better. Will try weaning today. FiO2 first. 04/19-: Not able to wean yesterday. O2 saturations 95-96%. Will wean PEEP. Down to 10 in effort to lower PEEP for trach which I believe she will need. No weaning on drips yet. Will need trach and PEG. O2 saturations worse, in mid to low 80s on 100%. Talked with Dr. Owen regarding need for trach next week. 04/23: Remains intubated. On rocuronium, Versed and fentanyl infusions. FiO2 95%. PRVC. WBC 13.6. D-dimer 3.14. CRP 59.1. Magnesium 1.5. 04/24: Rocuronium was discontinued yesterday. The patient's ventilator mode was switched to BiVENT. Versed changed to propofol. Still on fentanyl. On BiVENT. [place] sedated. 04/25: Yesterday afternoon, she developed acute hypoxemic decompensation followed by profound hypotension. Clinically, this was highly suspicious for pulmonary embolism. She was started on heparin infusion. SVO2 was found to be 15%. She was started on dobutamine. Ventilator settings were changed. She is still on BiVENT/APRV but now with settings that closely mimic inverse I:E pressure control ventilation. FiO2 100%. P high 20, P low 10, T high 1.5, T low 0.5. 04/26: COVID-19 (HUGH from 04/23) finally returned to negative result. Dobutamine changed to milrinone yesterday. Still on BiVENT/APRV but has been tolerating lower pressures in longer T high times. Had an episode of oxygen desaturation again this morning. Clinically, it appears that she is having increased secretions from the airway, possibly with mucous plugging. Settings were changed subsequent to oxygen desaturation: P high 30, P low 10, T high 1.5, T low 0.5. ABG this a.m.: 7.36/51/69. Diuresing, -869 mL yesterday. proBNP 5880. BM +. 04/27: [place] sedated, synchronous with ventilator. BG this a.m. 7./64/78. WBC 25.8 this AM. CRP 200. D-dimer 2.04. 04/28: WBC down to 25.8>14.8 this AM. Not on antibiotics. However, hemoglobin also dropped to 6.6. Repeat hemoglobin 6.2. No obvious blood loss. Blood urine and tracheal aspirate cultures from 04/27 pending. On propofol/Pre cedex/fentanyl. Triglycerides 183. 04/29: Febrile (T-max 24-hour 102.7 Fahrenheit), reportedly refractory to Tylenol and cooling blanket. WBC 28.3. Hemoglobin 6.2>9 after transfusion of 2 units PRBC yesterday. Started on vancomycin overnight due to gram-positive cocci in trach aspirate (04/27), which are now being reported as MRSA. Also, blood cultures (1 of 2) are growing out Staphylococcus species, possibly a contaminant. Still on propofol/Precedex/fentanyl for sedation. Started Versed overnight as well. On BiVENT/APRV: P high 20, P low 3, T high 5.5, T low 0.5. + PSV 15. 04/30: Bun/Cr slightly up. Vancomycin stopped. Linezolid started. Off propofol, may have had propofol infusion syndrome. 05/01: Only small changes in vent made as tolerated. 05/02: Decrease in H/H today, likely anemia of chronic disease. No apparent signs of bleeding. I was able to lower her inspiratory time (PEEP high) slightly without any significant change in SPO2. Her FiO2 was also decreased to 90%. No other significant changes. Plan will be to consult surgery for tracheostomy placement. 05/03/2020: Small incremental changes made on the ventilator today. FiO2 weaned slightly. No other significant changes. Review of systems relevant to events:: Neuro: Patient remains responsive to discomfort but not to voice. She is currently on Precedex, Versed and fentanyl. Plan: Decrease sedation as tolerated to allow better engagement in the vent weaning process. Pulmonary: Patient remains on bilevel ventilation. PEEP high is 30, PEEP low is 8, FiO2 weaned further to 80%. Plan: Maintain current vent settings. Wean FiO2 as tolerated to maintain SPO2 88 to 90%. Cardiovascular: Patient has been hemodynamically stable off of vasoactive medications. Plan: Continue to monitor closely. Indwelling catheters: Left IJ TLC. Heme: H&H was stable today. No indication for transfusion at this time. DVT prophylaxis: Patient remains on heparin drip. Renal: No significant change in renal perfusion today. We will continue to follow closely. Gastrointestinal: Patient receiving tube feeds Glucerna at 30 mL an hour. GI prophylaxis: Continue Pepcid. : Indwelling Fernandez catheter. ID: WBC although elevated has been improving. Trach aspirate showing MRSA, currently being treated with linezolid. Patient is also on fluconazole for both Oralia in urine and possibly a fungal infection in the sputum. Awaiting results of fungal culture. Barriers to discharge from ICU: Patient still remains in severe respiratory failure requiring high levels of bilevel ventilation. Unable to wean due to severe hypoxemia and poor AA gradient. Reason for ICU Addmission:: acute respiratory failure, covid -19 pneumonia, intubated. - Medications: Medications reviewed and adjusted accordingly: Yes Physical Exam Vital Signs: Temp Pulse Resp BP Pulse Ox 96.8 F L 91 46 H 160/103 H 92 05/03/20 10:00 05/03/20 19:42 05/03/20 19:42 05/03/20 18:18 05/03/20 19:42 Intake & Output 05/02/20 05/03/20 05/04/20 06:59 06:59 06:59 Intake Total 1656 1530 256 Output Total 2175 2905 2850 Balance -519 -6148 -3378 Weight 162.5 kg 159.8 kg 159.8 kg Weight/Height Weight 159.8 kg Height 5 ft 3 in General appearance: PRESENT: no acute distress, morbidly obese Head exam: PRESENT: atraumatic, normocephalic Eye exam: PRESENT: EOMI, PERRLA Ear exam: PRESENT: normal external ear exam Mouth exam: PRESENT: moist, neck supple Neck exam: PRESENT: full ROM. ABSENT: JVD, tracheal deviation Respiratory exam: PRESENT: decreased breath sounds Cardiovascular exam: PRESENT: RRR, +S1, +S2 Pulses: PRESENT: normal carotid pulses, normal radial pulses Vascular exam: PRESENT: normal capillary refill GI/Abdominal exam: PRESENT: diminished bowel sounds Musculoskeletal exam: PRESENT: full ROM, normal inspection Neurological exam: PRESENT: altered, CN II-XII grossly intact Skin exam: PRESENT: normal color Tubes/Lines: PRESENT: Endotracheal Tube, Central Line Laboratory/Radiographs Laboratory Results: 05/03/20 05:40 05/03/20 14:27 05/03/20 05/03/20 05/03/20 05:40 05:40 14:27 WBC 14.7 H RBC 3.09 L Hgb 7.8 L Hct 24.1 L MCV 78 L MCH 25.1 L MCHC 32.2 RDW 24.8 H Plt Count 164 Seg Neutrophils % Not Reportable Sodium 136.5 L 136.5 L Potassium 5.4 H 5.3 H Chloride 96 L 96 L Carbon Dioxide 26 26 Anion Gap 15 15 BUN 81 H 80 H Creatinine 1.74 H 1.54 H Est GFR ( Amer) 39 L 45 L Glucose 340 H 356 H Calcium 9.2 9.5 Total Bilirubin 2.2 H AST 80 H Alkaline Phosphatase 219 H C-Reactive Protein 65.9 H Total Protein 6.7 Albumin 3.3 L 03/21/20 04/11/20 04/14/20 21:58 03:05 01:59 Creatine Kinase Troponin I < 0.012 NT-Pro-B Natriuret Pep 192 H 184 H 04/24/20 04/25/20 04/26/20 14:18 09:01 03:53 Creatine Kinase Troponin I 0.012 NT-Pro-B Natriuret Pep 7620 H 5880 H 04/30/20 03:50 Creatine Kinase 301 H Troponin I NT-Pro-B Natriuret Pep Impressions: Abdomen Ultrasound 04/10/20 00:00 IMPRESSION: NO EVIDENCE FOR ASCITES. KUB X-Ray 04/29/20 00:00 IMPRESSION: NG tube is present with side port and tip overlying the body of the stomach. Chest X-Ray 04/29/20 16:06 IMPRESSION: Cannot definitively exclude a tiny left apical pneumothorax. Appearance of the chest is otherwise not significantly changed. All labs, radiographs, diagnostic studies and EKGs were personally reviewed: Yes In addition, reports of radiographic and diagnostic studies were read: Yes Assessment and Plan - Diagnosis (1) ROBB (acute kidney injury) Is this a current diagnosis for this admission?: Yes Plan: ROBB likely secondary to intravascular hypovolemia despite volume resuscitation. Follow-up renal panel in a.m. continue volume resuscitation if needed (2) Acute hypoxemic respiratory failure Is this a current diagnosis for this admission?: Yes Plan: Please see review of systems for more detailed report. Continue bilevel ventilation. Continue to make slow progress weaning FiO2. Plan Summary: Try to wean down sedation as tolerated. Critical Time Critical Time (minutes): 65 Level of Care: ICU Anticipated discharge: Acute Rehab Anticipated DC Timeframe: within 72 hours -: 1. The care of a critical patient is a dynamic process. This note is a contracts representative synopsis but static in nature. The timeframe for treatments given in order is not necessarily the actual time these treatments may have been done. 2. This patient requires critical care secondary to ongoing requirements for therapy not offered or safe outside the critical care environment. Transfer to a lower level of care will result in altered life or limb morbidity and mortality. 3. Multidisciplinary rounds completed. 4. ABCDE bundle addressed.
[2020-05-04] MEDS: INSULIN REG, HUMAN 100 UNIT/ML 3 ML VIAL (PYX) SUBCUT SCH ×4 (00:29→17:38)
[2020-05-04] MEDS: MIDAZOLAM HCL 50 MG/100 ML RTUINJ IV PRN ×3 (00:30→19:21)
[2020-05-04] MEDS: METOCLOPRAMIDE HCL INJ/PF 10 MG/2 ML SDV IV SCH ×4 (00:30→17:39)
[2020-05-04] MEDS: FENTANYL CITRATE/PF 600 MCG/60 ML BAG IV PRN ×6 (02:03→21:20)
[2020-05-04] MEDS: DEXMEDETOMIDINE IN NS 400 MCG/100 ML RTUPB IV PRN ×5 (05:43→23:28)
[2020-05-04] MEDS: RINGERS SOLUTION,LACTATED 1,000 ML IV PRN ×2 (05:44→17:51)
[2020-05-04 06:05] LABS: ANION GAP 13 (5-19); BLOOD UREA NITROGEN 80 mg/dL (7-20); CALCIUM 9.6 mg/dL (8.4-10.2); CARBON DIOXIDE 28 mmol/L (22-30); CHLORIDE 97 mmol/L (98-107); GLUCOSE 271 mg/dL (75-110); POTASSIUM 5.3 mmol/L (3.6-5.0)
[2020-05-04 07:06] LABS: HEMATOCRIT 23.4 % (36.0-47.0); MEAN CORPUSCULAR HEMOGLOBIN 25.7 pg (27.0-33.4); MEAN CORPUSCULAR HGB CONC 32.5 g/dL (32.0-36.0); MEAN CORPUSCULAR VOLUME 79 fl (80-97); RED BLOOD COUNT 2.95 10^6/uL (3.72-5.28); WHITE BLOOD COUNT 13.9 10^3/uL (4.0-10.5)
[2020-05-04] MEDS: BUDESONIDE NEB 0.25 MG/2 ML AMPUL NEB SCH ×2 (08:20→20:45)
[2020-05-04] MEDS: ALBUTEROL SULFATE 0.083% NEB 2.5 MG/3 ML AMPUL NEB PRN (08:20)
[2020-05-04] MEDS: FLUCONAZOLE 200 MG/NS RTU 200 MG/100 ML RTUPB IV SCH (08:22)
[2020-05-04 08:44] LABS: HEMOGLOBIN 7.6 g/dL (12.0-15.5); PLATELET COUNT 166 10^3/uL (150-450)
[2020-05-04] MEDS: LINEZOLID 600 MG/300 ML RTUPB IV SCH ×2 (09:37→21:57)
[2020-05-04] MEDS: AMINO AC/PROTEIN HYDR/WHEY PRO 11 GM/45 ML PKT NG SCH ×3 (09:38→17:38)
[2020-05-04] MEDS: INSULIN GLARGINE,HUM.REC.ANLOG 1,000 UNIT/10 ML VIAL SUBCUT SCH ×2 (09:38→21:53)
[2020-05-04] MEDS: METHYLPREDNISOLONE INJ 40 MG/1 ML SDV IV SCH (09:39)
[2020-05-04] MEDS: FUROSEMIDE INJ/PF 40 MG/4 ML SDV IV SCH ×2 (09:39→21:56)
[2020-05-04] MEDS: SENNOSIDES/DOCUSATE 8.6-50 MG 1 EACH TABLET NG SCH ×2 (09:39→17:39)
[2020-05-04] MEDS: FAMOTIDINE INJ/PF 20 MG/2 ML SDV IV SCH ×2 (09:40→21:57)
--- NOTE | 2020-05-04 09:47 | PDOC CRITICAL CARE PROG REPORT ---
General Date:: 05/04/20 ICU Day:: 39 Ventilator Day:: 39 Hospital Day:: 43 Resuscitation Status: Full Code Events in the past 12 to 24 Hours:: This 44-year-old -[place] female presented to [facility] emergency department on 03/21/2020 with complaints of possible presyncope versus syncope in addition to fever, chills, productive cough, dyspnea and exertional dyspnea. She has a history of psychiatric disorders and is known to be a difficult historian. Nonetheless, the patient also was known to have been diagnosed with COVID-19 pneumonia on 03/17/2020 and had subsequently been evaluated in the emergency department. She was apparently discharged home with prescriptions for azithromycin and other medications for symptomatic treatment. She returned with worsening shortness of breath and newly demonstrating supplemental oxygen requirement. 04/09-04/10: Remains intubated. Sedated with Precedex/Versed/fentanyl. On pressure control mode with peak and plateau pressures in the 40s. On insulin infusion for glucose control. On Glucerna + Prosource. KUB obtained showed a gasless abdomen, incongruent with physical exam (possibly due to morbid obesity). Still no BM. 04/11-: Had brisk diuresis with furosemide 40 mg IV single dose (2600 mL urine output), which resulted in a decrease in CVP. However, CVP is now back up to 910. On PRVC mode. ABG this a.m.: 7.46/46/53. Creatinine 0.6. WBC 17.3>11.4. Still no BM. On Versed/fentanyl/Precedex for sedation. Opens eyes to physical stimuli. Tube feeding currently on hold due to high residuals. Of note, even in the absence of tube feeding, the patient is having gastric residuals in the 200s. She does demonstrate spontaneous eye opening. She does not follow commands. 04/13-: Switched to BiVENT/APRV on 04/12/2020 (FiO2 80%, P high 17, T high 9.5 seconds, P low 3, T low 0.5 seconds). ABG this a.m.: 7.42/50/72. Off insulin infusion. Overnight, the patient had an episode of hypoglycemia (40) despite being on trickle tube feeds. Blood cultures (04/13) isolated gram-positive cocci in clusters. Tracheal aspirate (04/13) isolated Staphylococcus aureus. GPC is MSSA sens to rocephin. Still unsure if it's a contaminate. No progress made on ventilator. Changed back to PRVC on 04/16. Still 100% and PEEP 14. 04/18: CXR looks better. Will try weaning today. FiO2 first. 04/19-: Not able to wean yesterday. O2 saturations 95-96%. Will wean PEEP. Down to 10 in effort to lower PEEP for trach which I believe she will need. No weaning on drips yet. Will need trach and PEG. O2 saturations worse, in mid to low 80s on 100%. Talked with Dr. Owen regarding need for trach next week. 04/23: Remains intubated. On rocuronium, Versed and fentanyl infusions. FiO2 95%. PRVC. WBC 13.6. D-dimer 3.14. CRP 59.1. Magnesium 1.5. 04/24: Rocuronium was discontinued yesterday. The patient's ventilator mode was switched to BiVENT. Versed changed to propofol. Still on fentanyl. On BiVENT. [place] sedated. 04/25: Yesterday afternoon, she developed acute hypoxemic decompensation followed by profound hypotension. Clinically, this was highly suspicious for pulmonary embolism. She was started on heparin infusion. SVO2 was found to be 15%. She was started on dobutamine. Ventilator settings were changed. She is still on BiVENT/APRV but now with settings that closely mimic inverse I:E pressure control ventilation. FiO2 100%. P high 20, P low 10, T high 1.5, T low 0.5. 04/26: COVID-19 (HUGH from 04/23) finally returned to negative result. Dobutamine changed to milrinone yesterday. Still on BiVENT/APRV but has been tolerating lower pressures in longer T high times. Had an episode of oxygen desaturation again this morning. Clinically, it appears that she is having increased secretions from the airway, possibly with mucous plugging. Settings were changed subsequent to oxygen desaturation: P high 30, P low 10, T high 1.5, T low 0.5. ABG this a.m.: 7.36/51/69. Diuresing, -869 mL yesterday. proBNP 5880. BM +. 04/27: [place] sedated, synchronous with ventilator. BG this a.m. 7.28/64/78. WBC 25.8 this AM. CRP 200. D-dimer 2.04. 04/28: WBC down to 25.8>14.8 this AM. Not on antibiotics. However, hemoglobin also dropped to 6.6. Repeat hemoglobin 6.2. No obvious blood loss. Blood urine and tracheal aspirate cultures from 04/27 pending. On propofol/Pre cedex/fentanyl. Triglycerides 183. 04/29: Febrile (T-max 24-hour 102.7 Fahrenheit), reportedly refractory to Tylenol and cooling blanket. WBC 28.3. Hemoglobin 6.2>9 after transfusion of 2 units PRBC yesterday. Started on vancomycin overnight due to gram-positive cocci in trach aspirate (04/27), which are now being reported as MRSA. Also, blood cultures (1 of 2) are growing out Staphylococcus species, possibly a contaminant. Still on propofol/Precedex/fentanyl for sedation. Started Versed overnight as well. On BiVENT/APRV: P high 20, P low 3, T high 5.5, T low 0.5. + PSV 15. 04/30: Bun/Cr slightly up. Vancomycin stopped. Linezolid started. Off propofol, may have had propofol infusion syndrome. 05/01: Only small changes in vent made as tolerated. 05/02: Decrease in H/H today, likely anemia of chronic disease. No apparent signs of bleeding. I was able to lower her inspiratory time (PEEP high) slightly without any significant change in SPO2. Her FiO2 was also decreased to 90%. No other significant changes. Plan will be to consult surgery for tracheostomy placement. 05/03/2020: Small incremental changes made on the ventilator today. FiO2 weaned slightly. No other significant changes. 05/04/2020: Patient has had a small bit of progress with weaning her FiO2. We will continue as tolerated and make attempts to wean her bilevel as well today. Review of systems relevant to events:: Neuro: Patient remains responsive to discomfort but not to voice. She is currently on Precedex, Versed and fentanyl. Plan: Continue to decrease sedation as tolerated to allow better engagement in the vent weaning process. Pulmonary: Patient remains on bilevel ventilation. PEEP high is 30, PEEP low is 8, FiO2 weaned further to 80%. Plan: Maintain current vent settings. Wean FiO2 as tolerated to maintain SPO2 88 to 90%. Cardiovascular: Patient has been hemodynamically stable off of vasoactive medications. Plan: Continue to monitor closely. Indwelling catheters: Left IJ TLC. Heme: H&H was stable today. No indication for transfusion at this time. DVT prophylaxis: Patient remains on heparin drip. Renal: BUN/CR is stable today with a slight decrease in CR. We will continue to follow closely. Gastrointestinal: Patient receiving tube feeds Glucerna at 30 mL an hour. GI prophylaxis: Continue Pepcid. : Indwelling Fernandez catheter. ID: WBC although elevated has been improving. Trach aspirate showing MRSA, currently being treated with linezolid. Patient is also on fluconazole for both Oralia in urine and possibly a fungal infection in the sputum. Awaiting results of fungal culture. Barriers to discharge from ICU: Patient still remains in severe respiratory failure requiring high levels of bilevel ventilation. Unable to wean due to severe hypoxemia and poor AA gradient. Reason for ICU Addmission:: acute respiratory failure, covid -19 pneumonia, intubated. - Medications: Medications reviewed and adjusted accordingly: Yes Physical Exam Vital Signs: Temp Pulse Resp BP Pulse Ox 97.9 F 73 30 H 147/99 H 97 05/04/20 08:00 05/04/20 08:20 05/04/20 08:20 05/04/20 08:00 05/04/20 08:20 Intake & Output 05/03/20 05/04/20 05/05/20 06:59 06:59 06:59 Intake Total 1530 901 Output Total 5845 6600 450 Balance -4315 -5699 -450 Weight 159.8 kg 161.8 kg Weight/Height Weight 161.8 kg Height 5 ft 3 in General appearance: PRESENT: morbidly obese Head exam: PRESENT: atraumatic, normocephalic Eye exam: PRESENT: EOMI, PERRLA Ear exam: PRESENT: normal external ear exam Neck exam: PRESENT: full ROM. ABSENT: JVD Respiratory exam: PRESENT: decreased breath sounds, rhonchi Cardiovascular exam: PRESENT: RRR, +S1, +S2 Pulses: PRESENT: normal radial pulses, +2 pedal pulses bilateral Vascular exam: PRESENT: normal capillary refill GI/Abdominal exam: PRESENT: diminished bowel sounds Extremities exam: PRESENT: +2 edema Musculoskeletal exam: PRESENT: full ROM, normal inspection Neurological exam: PRESENT: altered, CN II-XII grossly intact Skin exam: PRESENT: normal color Laboratory/Radiographs Laboratory Results: 05/04/20 05:00 05/04/20 05:00 05/03/20 05/04/20 05/04/20 14:27 05:00 05:00 WBC 13.9 H RBC 2.95 L Hgb 7.6 L Hct 23.4 L MCV 79 L MCH 25.7 L MCHC 32.5 RDW 25.0 H Plt Count 166 Sodium 136.5 L 137.8 Potassium 5.3 H 5.3 H Chloride 96 L 97 L Carbon Dioxide 26 28 Anion Gap 15 13 BUN 80 H 80 H Creatinine 1.54 H 1.55 H Est GFR ( Amer) 45 L 44 L Glucose 356 H 271 H Calcium 9.5 9.6 Triglycerides 05/04/20 05:00 WBC RBC Hgb Hct MCV MCH MCHC RDW Plt Count Sodium Potassium Chloride Carbon Dioxide Anion Gap BUN Creatinine Est GFR ( Amer) Glucose Calcium Triglycerides 262 H 03/21/20 04/11/20 04/14/20 21:58 03:05 01:59 Creatine Kinase Troponin I < 0.012 NT-Pro-B Natriuret Pep 192 H 184 H 04/24/20 04/25/20 04/26/20 14:18 09:01 03:53 Creatine Kinase Troponin I 0.012 NT-Pro-B Natriuret Pep 7620 H 5880 H 04/30/20 03:50 Creatine Kinase 301 H Troponin I NT-Pro-B Natriuret Pep Impressions: Abdomen Ultrasound 04/10/20 00:00 IMPRESSION: NO EVIDENCE FOR ASCITES. KUB X-Ray 04/29/20 00:00 IMPRESSION: NG tube is present with side port and tip overlying the body of the stomach. Chest X-Ray 04/29/20 16:06 IMPRESSION: Cannot definitively exclude a tiny left apical pneumothorax. Appearance of the chest is otherwise not significantly changed. All labs, radiographs, diagnostic studies and EKGs were personally reviewed: Yes In addition, reports of radiographic and diagnostic studies were read: Yes Assessment and Plan - Diagnosis (1) ROBB (acute kidney injury) Is this a current diagnosis for this admission?: Yes Plan: ROBB likely secondary to intravascular hypovolemia despite volume resuscitation. Follow-up renal panel in a.m. continue volume resuscitation if needed (2) Acute hypoxemic respiratory failure Is this a current diagnosis for this admission?: Yes Plan: Please see review of systems for more detailed report. Continue bilevel ventilation. Continue to make slow progress weaning FiO2. Wean FiO2 to maintain an SPO2 of 88 to 90%. Critical Time Critical Time (minutes): 50 Level of Care: ICU Anticipated discharge: Acute Rehab Anticipated DC Timeframe: within 72 hours -: 1. The care of a critical patient is a dynamic process. This note is a media sales representative synopsis but static in nature. The timeframe for treatments given in order is not necessarily the actual time these treatments may have been done. 2. This patient requires critical care secondary to ongoing requirements for therapy not offered or safe outside the critical care environment. Transfer to a lower level of care will result in altered life or limb morbidity and mortality. 3. Multidisciplinary rounds completed. 4. ABCDE bundle addressed.
--- NOTE | 2020-05-04 10:11 | RADIOLOGY REPORT (SQ) ---
EXAM DESCRIPTION: CHEST SINGLE VIEW IMAGES COMPLETED DATE/TIME: 05/04/2020 8:52 am REASON FOR STUDY: Respiratory Failure COMPARISON: 04/29/2020 EXAM PARAMETERS: NUMBER OF VIEWS: One view. TECHNIQUE: Single frontal radiographic view of the chest acquired. RADIATION DOSE: NA LIMITATIONS: None. FINDINGS: LUNGS AND PLEURA: Mild increased atelectasis at the right lung base. Improved aeration in the left lung. No pneumothorax. MEDIASTINUM AND HILAR STRUCTURES: No masses. Contour normal. HEART AND VASCULAR STRUCTURES: Heart normal in size. Normal vasculature. BONES: No acute findings. HARDWARE: Endotracheal tube, esophagogastric tube, and left PICC are unchanged. OTHER: No other significant finding. IMPRESSION: Improved aeration in the left lung. Mild right basilar atelectasis/ consolidation. TECHNICAL DOCUMENTATION: JOB ID: [id number] [email or web address]- All Rights Reserved Reading location - IP/workstation name: [email or web address]
[2020-05-04] MEDS: LABETALOL HCL INJ 20 MG/4 ML DISP.SYRIN IV PRN (12:37)
[2020-05-04] MEDS: HEPARIN SODIUM,PORCINE/D5W 25,000 UNIT/250 ML RTUINJ IV PRN (13:45)
[2020-05-05] MEDS: INSULIN REG, HUMAN 100 UNIT/ML 3 ML VIAL (PYX) SUBCUT SCH ×4 (00:34→17:23)
[2020-05-05] MEDS: METOCLOPRAMIDE HCL INJ/PF 10 MG/2 ML SDV IV SCH ×4 (00:35→17:03)
[2020-05-05] MEDS: FENTANYL CITRATE/PF 600 MCG/60 ML BAG IV PRN ×6 (01:19→21:20)
[2020-05-05] MEDS: LABETALOL HCL INJ 20 MG/4 ML DISP.SYRIN IV PRN ×2 (01:52→13:14)
[2020-05-05] MEDS: DEXMEDETOMIDINE IN NS 400 MCG/100 ML RTUPB IV PRN ×7 (03:20→21:21)
[2020-05-05] MEDS ORDERED: LABETALOL HCL INJ 20 MG/4 ML DISP.SYRIN IV ONE (03:27)
[2020-05-05] MEDS: MIDAZOLAM HCL 50 MG/100 ML RTUINJ IV PRN ×4 (04:25→22:50)
[2020-05-05 05:35] LABS: HEMATOCRIT 23.8 % (36.0-47.0); MEAN CORPUSCULAR HEMOGLOBIN 25.8 pg (27.0-33.4); MEAN CORPUSCULAR HGB CONC 32.6 g/dL (32.0-36.0); MEAN CORPUSCULAR VOLUME 79 fl (80-97); PLATELET COUNT 180 10^3/uL (150-450); RED BLOOD COUNT 3.02 10^6/uL (3.72-5.28); RED CELL DISTRIBUTION WIDTH 25.5 % (11.5-14.0); WHITE BLOOD COUNT 15.9 10^3/uL (4.0-10.5)
[2020-05-05 05:57] LABS: HEMOGLOBIN 7.8 g/dL (12.0-15.5)
[2020-05-05 06:17] LABS: ANION GAP 7 (5-19); BLOOD UREA NITROGEN 82 mg/dL (7-20); CALCIUM 9.4 mg/dL (8.4-10.2); CARBON DIOXIDE 34 mmol/L (22-30); CHLORIDE 97 mmol/L (98-107); GLUCOSE 193 mg/dL (75-110); POTASSIUM 4.9 mmol/L (3.6-5.0)
[2020-05-05] MEDS: ALBUTEROL SULFATE 0.083% NEB 2.5 MG/3 ML AMPUL NEB PRN (08:15)
[2020-05-05] MEDS: BUDESONIDE NEB 0.25 MG/2 ML AMPUL NEB SCH ×2 (08:15→19:29)
[2020-05-05] MEDS: FLUCONAZOLE 200 MG/NS RTU 200 MG/100 ML RTUPB IV SCH (09:42)
[2020-05-05] MEDS: FUROSEMIDE INJ/PF 40 MG/4 ML SDV IV SCH ×2 (09:43→21:28)
[2020-05-05] MEDS: INSULIN GLARGINE,HUM.REC.ANLOG 1,000 UNIT/10 ML VIAL SUBCUT SCH ×2 (09:43→21:56)
[2020-05-05] MEDS: SENNOSIDES/DOCUSATE 8.6-50 MG 1 EACH TABLET NG SCH ×2 (09:43→17:24)
[2020-05-05] MEDS: FAMOTIDINE INJ/PF 20 MG/2 ML SDV IV SCH ×2 (09:43→21:29)
[2020-05-05] MEDS: AMINO AC/PROTEIN HYDR/WHEY PRO 11 GM/45 ML PKT NG SCH ×3 (09:43→17:52)
[2020-05-05] MEDS: METHYLPREDNISOLONE INJ 40 MG/1 ML SDV IV SCH (09:44)
[2020-05-05] MEDS ORDERED: ALTEPLASE INJ 2 MG VIAL (CATH CLEARANCE) INJ ONE (11:15)
[2020-05-05] MEDS: LINEZOLID 600 MG/300 ML RTUPB IV SCH ×2 (11:23→21:31)
[2020-05-05] MEDS: HEPARIN SODIUM,PORCINE/D5W 25,000 UNIT/250 ML RTUINJ IV PRN (11:24)
--- NOTE | 2020-05-05 13:38 | PDOC CRITICAL CARE PROG REPORT ---
General Date:: 05/05/20 ICU Day:: 40 Ventilator Day:: 40 Hospital Day:: 44 Resuscitation Status: Full Code Events in the past 12 to 24 Hours:: This 44-year-old -[place] female presented to [facility] emergency department on 03/21/2020 with complaints of possible presyncope versus syncope in addition to fever, chills, productive cough, dyspnea and exertional dyspnea. She has a history of psychiatric disorders and is known to be a difficult historian. Nonetheless, the patient also was known to have been diagnosed with COVID-19 pneumonia on 03/17/2020 and had subsequently been evaluated in the emergency department. She was apparently discharged home with prescriptions for azithromycin and other medications for symptomatic treatment. She returned with worsening shortness of breath and newly demonstrating supplemental oxygen requirement. 04/09-04/10: Remains intubated. Sedated with Precedex/Versed/fentanyl. On pressure control mode with peak and plateau pressures in the 40s. On insulin infusion for glucose control. On Glucerna + Prosource. KUB obtained showed a gasless abdomen, incongruent with physical exam (possibly due to morbid obesity). Still no BM. 04/11-: Had brisk diuresis with furosemide 40 mg IV single dose (2600 mL urine output), which resulted in a decrease in CVP. However, CVP is now back up to 910. On PRVC mode. ABG this a.m.: 7.46/46/53. Creatinine 0.6. WBC 17.3>11.4. Still no BM. On Versed/fentanyl/Precedex for sedation. Opens eyes to physical stimuli. Tube feeding currently on hold due to high residuals. Of note, even in the absence of tube feeding, the patient is having gastric residuals in the 200s. She does demonstrate spontaneous eye opening. She does not follow commands. 04/13-: Switched to BiVENT/APRV on 04/12/2020 (FiO2 80%, P high 17, T high 9.5 seconds, P low 3, T low 0.5 seconds). ABG this a.m.: 7.42/50/72. Off insulin infusion. Overnight, the patient had an episode of hypoglycemia (40) despite being on trickle tube feeds. Blood cultures (04/13) isolated gram-positive cocci in clusters. Tracheal aspirate (04/13) isolated Staphylococcus aureus. GPC is MSSA sens to rocephin. Still unsure if it's a contaminate. No progress made on ventilator. Changed back to PRVC on 04/16. Still 100% and PEEP 14. 04/18: CXR looks better. Will try weaning today. FiO2 first. 04/19-: Not able to wean yesterday. O2 saturations 95-96%. Will wean PEEP. Down to 10 in effort to lower PEEP for trach which I believe she will need. No weaning on drips yet. Will need trach and PEG. O2 saturations worse, in mid to low 80s on 100%. Talked with Dr. Oewn regarding need for trach next week. 04/23: Remains intubated. On rocuronium, Versed and fentanyl infusions. FiO2 95%. PRVC. WBC 13.6. D-dimer 3.14. CRP 59.1. Magnesium 1.5. 04/24: Rocuronium was discontinued yesterday. The patient's ventilator mode was switched to BiVENT. Versed changed to propofol. Still on fentanyl. On BiVENT. [place] sedated. 04/25: Yesterday afternoon, she developed acute hypoxemic decompensation followed by profound hypotension. Clinically, this was highly suspicious for pulmonary embolism. She was started on heparin infusion. SVO2 was found to be 15%. She was started on dobutamine. Ventilator settings were changed. She is still on BiVENT/APRV but now with settings that closely mimic inverse I:E pressure control ventilation. FiO2 100%. P high 20, P low 10, T high 1.5, T low 0.5. 04/26: COVID-19 (HUGH from 04/23) finally returned to negative result. Dobutamine changed to milrinone yesterday. Still on BiVENT/APRV but has been tolerating lower pressures in longer T high times. Had an episode of oxygen desaturation again this morning. Clinically, it appears that she is having increased secretions from the airway, possibly with mucous plugging. Settings were changed subsequent to oxygen desaturation: P high 30, P low 10, T high 1.5, T low 0.5. ABG this a.m.: 7.36/51/69. Diuresing, -869 mL yesterday. proBNP 5880. BM +. 04/27: [place] sedated, synchronous with ventilator. BG this a.m. 7.28/64/78. WBC 25.8 this AM. CRP 200. D-dimer 2.04. 04/28: WBC down to 25.8>14.8 this AM. Not on antibiotics. However, hemoglobin also dropped to 6.6. Repeat hemoglobin 6.2. No obvious blood loss. Blood urine and tracheal aspirate cultures from 04/27 pending. On propofol/Pre cedex/fentanyl. Triglycerides 183. 04/29: Febrile (T-max 24-hour 102.7 Fahrenheit), reportedly refractory to Tylenol and cooling blanket. WBC 28.3. Hemoglobin 6.2>9 after transfusion of 2 units PRBC yesterday. Started on vancomycin overnight due to gram-positive cocci in trach aspirate (04/27), which are now being reported as MRSA. Also, blood cultures (1 of 2) are growing out Staphylococcus species, possibly a contaminant. Still on propofol/Precedex/fentanyl for sedation. Started Versed overnight as well. On BiVENT/APRV: P high 20, P low 3, T high 5.5, T low 0.5. + PSV 15. 04/30: Bun/Cr slightly up. Vancomycin stopped. Linezolid started. Off propofol, may have had propofol infusion syndrome. 05/01: Only small changes in vent made as tolerated. 05/02: Decrease in H/H today, likely anemia of chronic disease. No apparent signs of bleeding. I was able to lower her inspiratory time (PEEP high) slightly without any significant change in SPO2. Her FiO2 was also decreased to 90%. No other significant changes. Plan will be to consult surgery for tracheostomy placement. 05/03/2020: Small incremental changes made on the ventilator today. FiO2 weaned slightly. No other significant changes. 05/04/2020: Patient has had a small bit of progress with weaning her FiO2. We will continue as tolerated and make attempts to wean her bilevel as well today. 05/05/2020: No significant changes over the past 24 hours. Patient has been saturating well with 80 to 90% FiO2. Overall plan today is to continue to wean. Patient will need tracheostomy tube. Review of systems relevant to events:: Neuro: Patient remains responsive to discomfort but not to voice. She is currently on Precedex, Versed and fentanyl. Plan: Continue to decrease sedation as tolerated to allow better engagement in the vent weaning process. Pulmonary: Patient remains on bilevel ventilation. PEEP high is 30, PEEP low is 8, FiO2 weaned further to 80%. Plan: Maintain current vent settings. Wean FiO2 as tolerated to maintain SPO2 88 to 90%. We will need to speak to surgery regarding tracheostomy placement. Cardiovascular: Patient has been hemodynamically stable off of vasoactive medications. Plan: Continue to monitor closely. Indwelling catheters: Left IJ TLC. Heme: H&H was stable today. No indication for transfusion at this time. DVT prophylaxis: Patient remains on heparin drip. Renal: BUN/CR remain slightly elevated but has been stable. Gastrointestinal: Patient receiving tube feeds Glucerna at 30 mL an hour. GI prophylaxis: Continue Pepcid. : Indwelling Fernandez catheter. ID: WBC seems to be trending upward again. Trach aspirate showing MRSA, currently being treated with linezolid. Patient is also on fluconazole for both Oralia in urine and possibly a fungal infection in the sputum. Awaiting results of fungal culture. Barriers to discharge from ICU: Patient still remains in severe respiratory failure requiring high levels of bilevel ventilation. Unable to wean due to severe hypoxemia and poor AA gradient. Reason for ICU Addmission:: acute respiratory failure, covid -19 pneumonia, intubated. - Medications: Medications reviewed and adjusted accordingly: Yes Physical Exam Vital Signs: Temp Pulse Resp BP Pulse Ox 98.2 F 74 48 H 145/95 H 89 L 05/05/20 12:00 05/05/20 12:00 05/05/20 12:00 05/05/20 12:00 05/05/20 12:00 Intake & Output 05/04/20 05/05/20 05/06/20 06:59 06:59 06:59 Intake Total 1201 3663 514 Output Total 7280 6170 1625 [facility] -[id number] [id number] [id number] Weight 161.8 kg 156.5 kg Weight/Height Weight 156.5 kg Height 5 ft 3 in General appearance: PRESENT: no acute distress, obese Head exam: PRESENT: atraumatic, normocephalic Eye exam: PRESENT: EOMI, PERRLA Ear exam: PRESENT: normal external ear exam Mouth exam: PRESENT: neck supple Neck exam: PRESENT: full ROM. ABSENT: JVD Respiratory exam: PRESENT: decreased breath sounds, rhonchi. ABSENT: wheezes Cardiovascular exam: PRESENT: RRR, +S1, +S2 Pulses: PRESENT: normal radial pulses, +2 pedal pulses bilateral GI/Abdominal exam: PRESENT: diminished bowel sounds, soft Extremities exam: PRESENT: full ROM Musculoskeletal exam: PRESENT: full ROM Neurological exam: PRESENT: altered, CN II-XII grossly intact - Sedated Skin exam: PRESENT: normal color Tubes/Lines: PRESENT: Endotracheal Tube, Central Line Laboratory/Radiographs Laboratory Results: 05/05/20 03:59 05/05/20 03:59 05/05/20 05/05/20 05/05/20 03:59 03:59 03:59 WBC 15.9 H RBC 3.02 L Hgb 7.8 L Hct 23.8 L MCV 79 L MCH 25.8 L MCHC 32.6 RDW 25.5 H Plt Count 180 Sodium 138.0 Potassium 4.9 Chloride 97 L Carbon Dioxide 34 H Anion Gap 7 BUN 82 H Creatinine 1.45 H Est GFR ( Amer) 48 L Glucose 193 H Calcium 9.4 C-Reactive Protein 42.2 H 03/21/20 04/11/20 04/14/20 21:58 03:05 01:59 Creatine Kinase Troponin I < 0.012 NT-Pro-B Natriuret Pep 192 H 184 H 04/24/20 04/25/20 04/26/20 14:18 09:01 03:53 Creatine Kinase Troponin I 0.012 NT-Pro-B Natriuret Pep 7620 H 5880 H 04/30/20 03:50 Creatine Kinase 301 H Troponin I NT-Pro-B Natriuret Pep Impressions: Abdomen Ultrasound 04/10/20 00:00 IMPRESSION: NO EVIDENCE FOR ASCITES. KUB X-Ray 04/29/20 00:00 IMPRESSION: NG tube is present with side port and tip overlying the body of the stomach. Chest X-Ray 05/04/20 00:00 IMPRESSION: Improved aeration in the left lung. Mild right basilar atelectasis/ consolidation. All labs, radiographs, diagnostic studies and EKGs were personally reviewed: Yes In addition, reports of radiographic and diagnostic studies were read: Yes Assessment and Plan - Diagnosis (1) ROBB (acute kidney injury) Is this a current diagnosis for this admission?: Yes Plan: BUN/CR is mildly elevated but stable. ROBB likely secondary to intravascular hypovolemia despite volume resuscitation. Follow-up renal panel in a.m. continue volume resuscitation if needed. (2) Acute hypoxemic respiratory failure Is this a current diagnosis for this admission?: Yes Plan: Please see review of systems for more detailed report. Continue bilevel ventilation. Continue to make slow progress weaning FiO2. Wean FiO2 to maintain an SPO2 of 88 to 90%. I will speak with surgery regarding tracheostomy today. Plan Summary: Try to wean down sedation as tolerated. Critical Time Critical Time (minutes): 72 Level of Care: ICU Anticipated discharge: Acute Rehab Anticipated DC Timeframe: within 72 hours -: 1. The care of a critical patient is a dynamic process. This note is a business banking representative synopsis but static in nature. The timeframe for treatments given in order is not necessarily the actual time these treatments may have been done. 2. This patient requires critical care secondary to ongoing requirements for therapy not offered or safe outside the critical care environment. Transfer to a lower level of care will result in altered life or limb morbidity and mortality. 3. Multidisciplinary rounds completed. 4. ABCDE bundle addressed.
[2020-05-05] MEDS ORDERED: ALTEPLASE INJ 2 MG VIAL (CATH CLEARANCE) IV ONE (19:30)
[2020-05-05 19:31] LABS: HEMATOCRIT 26.3 % (36.0-47.0); HEMOGLOBIN 8.6 g/dL (12.0-15.5); MEAN CORPUSCULAR HEMOGLOBIN 25.8 pg (27.0-33.4); MEAN CORPUSCULAR HGB CONC 32.6 g/dL (32.0-36.0); MEAN CORPUSCULAR VOLUME 79 fl (80-97); PLATELET COUNT 169 10^3/uL (150-450); RED BLOOD COUNT 3.31 10^6/uL (3.72-5.28); RED CELL DISTRIBUTION WIDTH 24.5 % (11.5-14.0); WHITE BLOOD COUNT 17.4 10^3/uL (4.0-10.5)
--- NOTE | 2020-05-05 19:47 | PDOC CONSULTATION ---
Consultation Consult Date: 05/05/20 Provider Consulted: SURGICAL SURGICALIST Consult reason:: Ventilator dependence History of Present Illness Admission Date/PCP: 03/21/20 23:56 ASHUTOSH LLAMAS NP Patient complains of: Ventilator dependence, need for tracheostomy History of Present Illness: CRAIG MCKEON is a 44 year old super obese female who initially was admitted for COVID-19 infection. The patient developed Covid related pneumonia, and was urgently intubated over 1 month ago. She has remained on the ventilator since that time. While somewhat improved, her ventilatory status remains precarious. She continues to require advanced ventilation (bi-level ventilation). She is currently intubated and sedated. No meaningful review of systems is obtainable at this time. Past Medical History Psychiatric Medical History: Reports: Bipolar Disorder, Depression, Schizoaffective Disorder, Tobacco Dependency Past Surgical History Past Surgical History: Reports: None Social History Lives with: Family Smoking Status: Current Every Day Smoker Frequency of Alcohol Use: Occasional Hx Recreational Drug Use: Yes Drugs: Marijuana Hx Prescription Drug Abuse: No - Advance Directive Resuscitation Status: Full Code Family History Family History: CAD, Hyperlipidemia, Hypertension, Malignancy Parental Family History Reviewed: Yes Children Family History Reviewed: Yes Sibling(s) Family History Reviewed.: Yes Medication/Allergy Home Medications: Ascorbic Acid [C-1000] 1,000 mg PO BID 03/22/20 Cholecalciferol (Vitamin D3) [Vitamin D3] 75 mcg PO DAILY 03/22/20 Zinc [Zinc Chelated] 50 mg PO DAILY 03/22/20 Allergies/Adverse Reactions: No Known Allergies Allergy (Verified 03/21/20 20:35) Review of Systems ROS unobtainable: Due to endotracheal tube, Due to mental status Physical Exam Vital Signs: Temp Pulse Resp BP Pulse Ox 98.8 F 73 40 H 148/94 H 93 05/05/20 16:00 05/05/20 18:00 05/05/20 18:00 05/05/20 18:18 05/05/20 18:18 Intake & Output 05/04/20 05/05/20 05/06/20 06:59 06:59 06:59 Intake Total 1201 1793 1002 Output Total 3888 3698 [id number] [facility] -[id number] [id number] [id number] Weight 161.8 kg 156.5 kg General appearance: PRESENT: morbidly obese - Super obese Head exam: PRESENT: atraumatic, normocephalic Eye exam: ABSENT: scleral icterus Mouth exam: PRESENT: moist, neck supple Neck exam: ABSENT: tracheal deviation Respiratory exam: PRESENT: crackles - Bilateral, other - Intubated and sedated, on vent Cardiovascular exam: ABSENT: tachycardia Vascular exam: ABSENT: pallor GI/Abdominal exam: PRESENT: soft. ABSENT: distended Rectal exam: PRESENT: deferred Extremities exam: ABSENT: clubbing Musculoskeletal exam: ABSENT: deformity Neurological exam: ABSENT: alert, awake Psychiatric exam: ABSENT: agitated, anxious Skin exam: ABSENT: erythema, jaundice Results Laboratory Results: 05/05/20 03:59 05/05/20 03:59 05/05/20 05/05/20 05/05/20 03:59 03:59 03:59 WBC 15.9 H RBC 3.02 L Hgb 7.8 L Hct 23.8 L MCV 79 L MCH 25.8 L MCHC 32.6 RDW 25.5 H Plt Count 180 Sodium 138.0 Potassium 4.9 Chloride 97 L Carbon Dioxide 34 H Anion Gap 7 BUN 82 H Creatinine 1.45 H Est GFR ( Amer) 48 L Glucose 193 H Calcium 9.4 C-Reactive Protein 42.2 H 03/21/20 04/11/20 04/14/20 21:58 03:05 01:59 Creatine Kinase Troponin I < 0.012 NT-Pro-B Natriuret Pep 192 H 184 H 04/24/20 04/25/20 04/26/20 14:18 09:01 03:53 Creatine Kinase Troponin I 0.012 NT-Pro-B Natriuret Pep 7620 H 5880 H 04/30/20 03:50 Creatine Kinase 301 H Troponin I NT-Pro-B Natriuret Pep Impressions: Abdomen Ultrasound 04/10/20 00:00 IMPRESSION: NO EVIDENCE FOR ASCITES. KUB X-Ray 04/29/20 00:00 IMPRESSION: NG tube is present with side port and tip overlying the body of the stomach. Chest X-Ray 05/04/20 00:00 IMPRESSION: Improved aeration in the left lung. Mild right basilar atele ctasis/ consolidation. Assessment & Plan - Diagnosis (1) Ventilator dependence Is this a current diagnosis for this admission?: Yes (2) Acute respiratory failure with hypoxia and hypercapnia Is this a current diagnosis for this admission?: Yes (3) COVID-19 Is this a current diagnosis for this admission?: Yes - Plan Summary Plan Summary: 44-year-old female who has been intubated for approximately 1 month. This was initially related to COVID-19 pneumonia. Her last Covid swab was negative. She however continues to struggle ventilator dependence. The patient is super obese, and technically speaking her tracheostomy will be difficult. This, paired with her continued poor respiratory status, makes her operation fairly risky. I would recommend meticulous surgical planning prior to tracheostomy placement. Surgery will continue to follow with you. Once the logistics are worked out, plan for tracheostomy placement.
[2020-05-06] MEDS: FENTANYL CITRATE/PF 600 MCG/60 ML BAG IV PRN ×7 (00:10→21:41)
[2020-05-06] MEDS: DEXMEDETOMIDINE IN NS 400 MCG/100 ML RTUPB IV PRN ×11 (00:10→22:49)
[2020-05-06] MEDS: METOCLOPRAMIDE HCL INJ/PF 10 MG/2 ML SDV IV SCH ×4 (00:46→17:30)
[2020-05-06] MEDS: INSULIN REG, HUMAN 100 UNIT/ML 3 ML VIAL (PYX) SUBCUT SCH ×4 (00:55→17:31)
[2020-05-06] MEDS: MIDAZOLAM HCL 50 MG/100 ML RTUINJ IV PRN ×4 (04:53→21:43)
[2020-05-06] MEDS: FLUCONAZOLE 200 MG/NS RTU 200 MG/100 ML RTUPB IV SCH (08:26)
[2020-05-06] MEDS: BUDESONIDE NEB 0.25 MG/2 ML AMPUL NEB SCH ×2 (08:33→19:54)
[2020-05-06] MEDS: ALBUTEROL SULFATE 0.083% NEB 2.5 MG/3 ML AMPUL NEB PRN ×2 (08:33→19:54)
[2020-05-06] MEDS: LINEZOLID 600 MG/300 ML RTUPB IV SCH ×2 (09:09→21:44)
[2020-05-06] MEDS: HEPARIN SODIUM,PORCINE/D5W 25,000 UNIT/250 ML RTUINJ IV PRN (09:10)
[2020-05-06] MEDS: METHYLPREDNISOLONE INJ 40 MG/1 ML SDV IV SCH (09:11)
[2020-05-06] MEDS: INSULIN GLARGINE,HUM.REC.ANLOG 1,000 UNIT/10 ML VIAL SUBCUT SCH ×2 (09:11→21:44)
[2020-05-06] MEDS: FAMOTIDINE INJ/PF 20 MG/2 ML SDV IV SCH ×2 (09:11→21:44)
[2020-05-06] MEDS: FUROSEMIDE INJ/PF 40 MG/4 ML SDV IV SCH ×2 (09:11→21:43)
--- NOTE | 2020-05-06 09:11 | PDOC CRITICAL CARE PROG REPORT ---
General Date:: 05/06/20 ICU Day:: 35 Ventilator Day:: 35 Hospital Day:: 45 Resuscitation Status: Full Code Events in the past 12 to 24 Hours:: This 44-year-old -[place] female presented to [facility] emergency department on 03/21/2020 with complaints of possible presyncope versus syncope in addition to fever, chills, productive cough, dyspnea and exertional dyspnea. She has a history of psychiatric disorders and is known to be a difficult historian. Nonetheless, the patient also was known to have been diagnosed with COVID-19 pneumonia on 03/17/2020 and had subsequently been evaluated in the emergency department. She was apparently discharged home with prescriptions for azithromycin and other medications for symptomatic treatment. She returned with worsening shortness of breath and newly demonstrating supplemental oxygen requirement. 04/09-04/10: Remains intubated. Sedated with Precedex/Versed/fentanyl. On pressure control mode with peak and plateau pressures in the 40s. On insulin infusion for glucose control. On Glucerna + Prosource. KUB obtained showed a gasless abdomen, incongruent with physical exam (possibly due to morbid obesity). Still no BM. 04/11-: Had brisk diuresis with furosemide 40 mg IV single dose (2600 mL urine output), which resulted in a decrease in CVP. However, CVP is now back up to 910. On PRVC mode. ABG this a.m.: 7.46/46/53. Creatinine 0.6. WBC 17.3>11.4. Still no BM. On Versed/fentanyl/Precedex for sedation. Opens eyes to physical stimuli. Tube feeding currently on hold due to high residuals. Of note, even in the absence of tube feeding, the patient is having gastric residuals in the 200s. She does demonstrate spontaneous eye opening. She does not follow commands. 04/13-: Switched to BiVENT/APRV on 04/12/2020 (FiO2 80%, P high 17, T high 9.5 seconds, P low 3, T low 0.5 seconds). ABG this a.m.: 7.42/50/72. Off insulin infusion. Overnight, the patient had an episode of hypoglycemia (40) despite being on trickle tube feeds. Blood cultures (04/13) isolated gram-positive cocci in clusters. Tracheal aspirate (04/13) isolated Staphylococcus aureus. GPC is MSSA sens to rocephin. Still unsure if it's a contaminate. No progress made on ventilator. Changed back to PRVC on 04/16. Still 100% and PEEP 14. 04/18: CXR looks better. Will try weaning today. FiO2 first. 04/19-: Not able to wean yesterday. O2 saturations 95-96%. Will wean PEEP. Down to 10 in effort to lower PEEP for trach which I believe she will need. No weaning on drips yet. Will need trach and PEG. O2 saturations worse, in mid to low 80s on 100%. Talked with Dr. Owen regarding need for trach next week. 04/23: Remains intubated. On rocuronium, Versed and fentanyl infusions. FiO2 95%. PRVC. WBC 13.6. D-dimer 3.14. CRP 59.1. Magnesium 1.5. 04/24: Rocuronium was discontinued yesterday. The patient's ventilator mode was switched to BiVENT. Versed changed to propofol. Still on fentanyl. On BiVENT. [place] sedated. 04/25: Yesterday afternoon, she developed acute hypoxemic decompensation followed by profound hypotension. Clinically, this was highly suspicious for pulmonary embolism. She was started on heparin infusion. SVO2 was found to be 15%. She was started on dobutamine. Ventilator settings were changed. She is still on BiVENT/APRV but now with settings that closely mimic inverse I:E pressure control ventilation. FiO2 100%. P high 20, P low 10, T high 1.5, T low 0.5. 04/26: COVID-19 (HUGH from 04/23) finally returned to negative result. Dobutamine changed to milrinone yesterday. Still on BiVENT/APRV but has been tolerating lower pressures in longer T high times. Had an episode of oxygen desaturation again this morning. Clinically, it appears that she is having increased secretions from the airway, possibly with mucous plugging. Settings were changed subsequent to oxygen desaturation: P high 30, P low 10, T high 1.5, T low 0.5. ABG this a.m.: 7.36/51/69. Diuresing, -869 mL yesterday. proBNP 5880. BM +. 04/27: [place] sedated, synchronous with ventilator. BG this a.m. 7.28/64/78. WBC 25.8 this AM. CRP 200. D-dimer 2.04. 04/28: WBC down to 25.8>14.8 this AM. Not on antibiotics. However, hemoglobin also dropped to 6.6. Repeat hemoglobin 6.2. No obvious blood loss. Blood urine and tracheal aspirate cultures from 04/27 pending. On propofol/Pre cedex/fentanyl. Triglycerides 183. 04/29: Febrile (T-max 24-hour 102.7 Fahrenheit), reportedly refractory to Tylenol and cooling blanket. WBC 28.3. Hemoglobin 6.2>9 after transfusion of 2 units PRBC yesterday. Started on vancomycin overnight due to gram-positive cocci in trach aspirate (04/27), which are now being reported as MRSA. Also, blood cultures (1 of 2) are growing out Staphylococcus species, possibly a contaminant. Still on propofol/Precedex/fentanyl for sedation. Started Versed overnight as well. On BiVENT/APRV: P high 20, P low 3, T high 5.5, T low 0.5. + PSV 15. 04/30: Bun/Cr slightly up. Vancomycin stopped. Linezolid started. Off propofol, may have had propofol infusion syndrome. 05/01: Only small changes in vent made as tolerated. 05/02: Decrease in H/H today, likely anemia of chronic disease. No apparent signs of bleeding. I was able to lower her inspiratory time (PEEP high) slightly without any significant change in SPO2. Her FiO2 was also decreased to 90%. No other significant changes. Plan will be to consult surgery for tracheostomy placement. 05/03/2020: Small incremental changes made on the ventilator today. FiO2 weaned slightly. No other significant changes. 05/04/2020: Patient has had a small bit of progress with weaning her FiO2. We will continue as tolerated and make attempts to wean her bilevel as well today. 05/05/2020: No significant changes over the past 24 hours. Patient has been saturating well with 80 to 90% FiO2. Overall plan today is to continue to wean. Patient will need tracheostomy tube. 05/06: Overall no major change. Has been seen by Dr. Manriquez regarding need for trach 05/05. Review of systems relevant to events:: Pulmonary Reason for ICU Addmission:: acute respiratory failure, covid -19 pneumonia, intubated. - Medications: Medications reviewed and adjusted accordingly: Yes Vasopressors:: None. Sedation:: Fentanyl, midazolam, precedex. Physical Exam Vital Signs: Temp Pulse Resp BP Pulse Ox 98.6 F 81 31 H 120/64 91 L 05/06/20 08:00 05/06/20 08:00 05/06/20 08:00 05/06/20 08:00 05/06/20 08:00 Intake & Output 05/05/20 05/06/20 05/07/20 06:59 06:59 06:59 Intake Total 3663 2016 186 Output Total 6170 7425 450 Balance -0357 -5409 -264 Weight 156.5 kg 153.5 kg Weight/Height Weight 153.5 kg Height 5 ft 3 in General appearance: PRESENT: no acute distress, morbidly obese Head exam: PRESENT: atraumatic, normocephalic Eye exam: PRESENT: conjunctiva pink, EOMI, PERRLA. ABSENT: scleral icterus Ear exam: PRESENT: normal external ear exam Mouth exam: PRESENT: moist, tongue midline Respiratory exam: PRESENT: clear to auscultation reji, decreased breath sounds. ABSENT: rales, rhonchi, wheezes Cardiovascular exam: PRESENT: RRR. ABSENT: diastolic murmur, rubs, systolic murmur GI/Abdominal exam: PRESENT: normal bowel sounds, soft. ABSENT: distended, guarding, mass, organolmegaly, rebound, tenderness Rectal exam: PRESENT: deferred Gentrourinary exam: PRESENT: indwelling catheter Extremities exam: PRESENT: full ROM. ABSENT: calf tenderness, clubbing, pedal edema Neurological exam: PRESENT: altered, other - Sedated. Tubes/Lines: PRESENT: Endotracheal Tube, Nasogastic Tube Laboratory/Radiographs Laboratory Results: 05/05/20 19:10 05/05/20 03:59 05/05/20 05/05/20 03:59 19:10 WBC 17.4 H RBC 3.31 L Hgb 8.6 L Hct 26.3 L MCV 79 L MCH 25.8 L MCHC 32.6 RDW 24.5 H Plt Count 169 C-Reactive Protein 42.2 H 03/21/20 04/11/20 04/14/20 21:58 03:05 01:59 Creatine Kinase Troponin I < 0.012 NT-Pro-B Natriuret Pep 192 H 184 H 04/24/20 04/25/20 04/26/20 14:18 09:01 03:53 Creatine Kinase Troponin I 0.012 NT-Pro-B Natriuret Pep 7620 H 5880 H 04/30/20 03:50 Creatine Kinase 301 H Troponin I NT-Pro-B Natriuret Pep Impressions: Abdomen Ultrasound 04/10/20 00:00 IMPRESSION: NO EVIDENCE FOR ASCITES. KUB X-Ray 04/29/20 00:00 IMPRESSION: NG tube is present with side port and tip overlying the body of the stomach. Chest X-Ray 05/04/20 00:00 IMPRESSION: Improved aeration in the left lung. Mild right basilar atelectasis/ consolidation. All labs, radiographs, diagnostic studies and EKGs were personally reviewed: Yes In addition, reports of radiographic and diagnostic studies were read: Yes Assessment and Plan - Diagnosis (1) Pneumonia due to COVID-19 virus Is this a current diagnosis for this admission?: Yes Plan: She has tested negative but still is vent dependent. Needs trach. Dr Manriquez has seen. Logistics need to be worked out such as ordering longer trach. (2) Morbid obesity with BMI of 50.0-59.9, adult Is this a current diagnosis for this admission?: Yes Plan: Unchanged. (3) Anemia Is this a current diagnosis for this admission?: Yes Plan: Hgb level 8.6, stable. (4) Leukocytosis Qualifiers: Leukocytosis type: unspecified Qualified Code(s): D72.829 - Elevated white blood cell count, unspecified Is this a current diagnosis for this admission?: Yes Plan: WBC 17K, beginning to rise again. Plan Summary: Plan for trach soon and then wean sedation. Still needs ICU. Critical Time Critical Time (minutes): 35 Level of Care: ICU Anticipated discharge: SNF Anticipated DC Timeframe: Other -: 1. The care of a critical patient is a dynamic process. This note is a public relations representative synopsis but static in nature. The timeframe for treatments given in order is not necessarily the actual time these treatments may have been done. 2. This patient requires critical care secondary to ongoing requirements for therapy not offered or safe outside the critical care environment. Transfer to a lower level of care will result in altered life or limb morbidity and mortality. 3. Multidisciplinary rounds completed. 4. ABCDE bundle addressed.
[2020-05-06] MEDS: SENNOSIDES/DOCUSATE 8.6-50 MG 1 EACH TABLET NG SCH ×2 (09:12→17:30)
[2020-05-06] MEDS: AMINO AC/PROTEIN HYDR/WHEY PRO 11 GM/45 ML PKT NG SCH ×3 (09:26→17:31)
[2020-05-06] MEDS ORDERED: VECURONIUM BROMIDE INJ 10 MG VIAL IV ONE ×2 (14:43)
--- NOTE | 2020-05-06 15:21 | PDOC PROGRESS REPORT ---
Subjective Date:: 05/06/20 Subjective:: intubated, sedated Reason For Visit: COVID-19 PNEUMONIA, ACUTE HYPOXEMIC RESPIRATORY Physical Exam Vital Signs: Temp Pulse Resp BP Pulse Ox 99.9 F 87 31 H 136/87 H 83 L 05/06/20 12:00 05/06/20 14:00 05/06/20 14:00 05/06/20 14:00 05/06/20 14:00 Intake & Output 05/05/20 05/06/20 05/07/20 06:59 06:59 06:59 Intake Total 3663 2016 95 Output Total 6170 7425 2100 Balance -3817 -5409 -1147 Weight 156.5 kg 153.5 kg General appearance: PRESENT: other - sedated, intubated Mouth exam: PRESENT: other - ETT in place Results Laboratory Results: 05/05/20 19:10 05/05/20 03:59 05/05/20 19:10 WBC 17.4 H RBC 3.31 L Hgb 8.6 L Hct 26.3 L MCV 79 L MCH 25.8 L MCHC 32.6 RDW 24.5 H Plt Count 169 03/21/20 04/11/20 04/14/20 21:58 03:05 01:59 Creatine Kinase Troponin I < 0.012 NT-Pro-B Natriuret Pep 192 H 184 H 04/24/20 04/25/20 04/26/20 14:18 09:01 03:53 Creatine Kinase Troponin I 0.012 NT-Pro-B Natriuret Pep 7620 H 5880 H 04/30/20 03:50 Creatine Kinase 301 H Troponin I NT-Pro-B Natriuret Pep Impressions: Abdomen Ultrasound 04/10/20 00:00 IMPRESSION: NO EVIDENCE FOR ASCITES. KUB X-Ray 04/29/20 00:00 IMPRESSION: NG tube is present with side port and tip overlying the body of the stomach. Chest X-Ray 05/04/20 00:00 IMPRESSION: Improved aeration in the left lung. Mild right basilar atelectasis/ consolidation. 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 Manriquez on 04/2920 Heparin to be discontinued prior to procedure on 05/08/20
[2020-05-06] MEDS ORDERED: ACETAMINOPHEN SOLN 325 MG/10.15 ML UDCUP NG PRN (18:30)
[2020-05-06] MEDS: ACETAMINOPHEN SOLN 325 MG/10.15 ML UDCUP NG PRN (18:42)
[2020-05-07] MEDS: DEXMEDETOMIDINE IN NS 400 MCG/100 ML RTUPB IV PRN ×11 (00:06→22:38)
[2020-05-07] MEDS: HEPARIN SODIUM,PORCINE/D5W 25,000 UNIT/250 ML RTUINJ IV PRN ×2 (00:12→15:57)
[2020-05-07] MEDS: FENTANYL CITRATE/PF 600 MCG/60 ML BAG IV PRN ×9 (00:31→23:44)
[2020-05-07] MEDS: INSULIN REG, HUMAN 100 UNIT/ML 3 ML VIAL (PYX) SUBCUT SCH ×4 (00:31→18:12)
[2020-05-07] MEDS: METOCLOPRAMIDE HCL INJ/PF 10 MG/2 ML SDV IV SCH (00:35)
[2020-05-07] MEDS: MIDAZOLAM HCL 50 MG/100 ML RTUINJ IV PRN ×5 (01:42→21:30)
[2020-05-07 06:21] LABS: HEMATOCRIT 23.7 % (36.0-47.0); MEAN CORPUSCULAR HGB CONC 32.6 g/dL (32.0-36.0); MEAN CORPUSCULAR VOLUME 80 fl (80-97); PLATELET COUNT 179 10^3/uL (150-450); RED BLOOD COUNT 2.98 10^6/uL (3.72-5.28); RED CELL DISTRIBUTION WIDTH 24.2 % (11.5-14.0); WHITE BLOOD COUNT 18.2 10^3/uL (4.0-10.5)
[2020-05-07 06:32] LABS: HEMOGLOBIN 7.7 g/dL (12.0-15.5)
[2020-05-07 07:01] LABS: ABSOLUTE LYMPHOCYTES# (MANUAL) 3.1 10^3/uL (0.5-4.7); ABSOLUTE MONOCYTES # (MANUAL) 0.2 10^3/uL (0.1-1.4); ANISOCYTOSIS 4+; BAND NEUTROPHILS % (MANUAL) 3 % (3-5); BASOPHILS % (MANUAL) 0 % (0-2); EOSINOPHILS % (MANUAL) 0 % (0-6); HYPOCHROMASIA 1+; LYMPHOCYTES % (MANUAL) 17 % (13-45); MONOCYTES % (MANUAL) 1 % (3-13); NUCLEATED RED BLOOD CELLS 1 /100 WBC (0); PLATELET COMMENT ADEQUATE; POLYCHROMASIA 1+; SEGMENTED NEUTROPHILS % (MAN) 79 % (42-78); TOTAL CELLS COUNTED 100
[2020-05-07] MEDS: ALBUTEROL SULFATE 0.083% NEB 2.5 MG/3 ML AMPUL NEB PRN ×2 (08:21→19:30)
[2020-05-07] MEDS: BUDESONIDE NEB 0.25 MG/2 ML AMPUL NEB SCH ×2 (08:21→19:30)
--- NOTE | 2020-05-07 09:18 | PDOC CRITICAL CARE PROG REPORT ---
General Date:: 05/07/20 ICU Day:: 36 Ventilator Day:: 36 Hospital Day:: 46 Resuscitation Status: Full Code Events in the past 12 to 24 Hours:: This 44-year-old -[place] female presented to [facility] emergency department on 03/21/2020 with complaints of possible presyncope versus syncope in addition to fever, chills, productive cough, dyspnea and exertional dyspnea. She has a history of psychiatric disorders and is known to be a difficult historian. Nonetheless, the patient also was known to have been diagnosed with COVID-19 pneumonia on 03/17/2020 and had subsequently been evaluated in the emergency department. She was apparently discharged home with prescriptions for azithromycin and other medications for symptomatic treatment. She returned with worsening shortness of breath and newly demonstrating supplemental oxygen requirement. 04/09-04/10: Remains intubated. Sedated with Precedex/Versed/fentanyl. On pressure control mode with peak and plateau pressures in the 40s. On insulin infusion for glucose control. On Glucerna + Prosource. KUB obtained showed a gasless abdomen, incongruent with physical exam (possibly due to morbid obesity). Still no BM. 04/11-: Had brisk diuresis with furosemide 40 mg IV single dose (2600 mL urine output), which resulted in a decrease in CVP. However, CVP is now back up to 910. On PRVC mode. ABG this a.m.: 7.46/46/53. Creatinine 0.6. WBC 17.3>11.4. Still no BM. On Versed/fentanyl/Precedex for sedation. Opens eyes to physical stimuli. Tube feeding currently on hold due to high residuals. Of note, even in the absence of tube feeding, the patient is having gastric residuals in the 200s. She does demonstrate spontaneous eye opening. She does not follow commands. 04/13-: Switched to BiVENT/APRV on 04/12/2020 (FiO2 80%, P high 17, T high 9.5 seconds, P low 3, T low 0.5 seconds). ABG this a.m.: 7.42/50/72. Off insulin infusion. Overnight, the patient had an episode of hypoglycemia (40) despite being on trickle tube feeds. Blood cultures (04/13) isolated gram-positive cocci in clusters. Tracheal aspirate (04/13) isolated Staphylococcus aureus. GPC is MSSA sens to rocephin. Still unsure if it's a contaminate. No progress made on ventilator. Changed back to PRVC on 04/16. Still 100% and PEEP 14. 04/18: CXR looks better. Will try weaning today. FiO2 first. 04/19-: Not able to wean yesterday. O2 saturations 95-96%. Will wean PEEP. Down to 10 in effort to lower PEEP for trach which I believe she will need. No weaning on drips yet. Will need trach and PEG. O2 saturations worse, in mid to low 80s on 100%. Talked with Dr. Owen regarding need for trach next week. 04/23: Remains intubated. On rocuronium, Versed and fentanyl infusions. FiO2 95%. PRVC. WBC 13.6. D-dimer 3.14. CRP 59.1. Magnesium 1.5. 04/24: Rocuronium was discontinued yesterday. The patient's ventilator mode was switched to BiVENT. Versed changed to propofol. Still on fentanyl. On BiVENT. [place] sedated. 04/25: Yesterday afternoon, she developed acute hypoxemic decompensation followed by profound hypotension. Clinically, this was highly suspicious for pulmonary embolism. She was started on heparin infusion. SVO2 was found to be 15%. She was started on dobutamine. Ventilator settings were changed. She is still on BiVENT/APRV but now with settings that closely mimic inverse I:E pressure control ventilation. FiO2 100%. P high 20, P low 10, T high 1.5, T low 0.5. 04/26: COVID-19 (HUGH from 04/23) finally returned to negative result. Dobutamine changed to milrinone yesterday. Still on BiVENT/APRV but has been tolerating lower pressures in longer T high times. Had an episode of oxygen desaturation again this morning. Clinically, it appears that she is having increased secretions from the airway, possibly with mucous plugging. Settings were changed subsequent to oxygen desaturation: P high 30, P low 10, T high 1.5, T low 0.5. ABG this a.m.: 7.36/51/69. Diuresing, -869 mL yesterday. proBNP 5880. BM +. 04/27: Woolrich sedated, synchronous with ventilator. BG this a.m. 7.28/64/78. WBC 25.8 this AM. CRP 200. D-dimer 2.04. 04/28: WBC down to 25.8>14.8 this AM. Not on antibiotics. However, hemoglobin also dropped to 6.6. Repeat hemoglobin 6.2. No obvious blood loss. Blood urine and tracheal aspirate cultures from 04/27 pending. On propofol/Pre cedex/fentanyl. Triglycerides 183. 04/29: Febrile (T-max 24-hour 102.7 Fahrenheit), reportedly refractory to Tylenol and cooling blanket. WBC 28.3. Hemoglobin 6.2>9 after transfusion of 2 units PRBC yesterday. Started on vancomycin overnight due to gram-positive cocci in trach aspirate (04/27), which are now being reported as MRSA. Also, blood cultures (1 of 2) are growing out Staphylococcus species, possibly a contaminant. Still on propofol/Precedex/fentanyl for sedation. Started Versed overnight as well. On BiVENT/APRV: P high 20, P low 3, T high 5.5, T low 0.5. + PSV 15. 04/30: Bun/Cr slightly up. Vancomycin stopped. Linezolid started. Off propofol, may have had propofol infusion syndrome. 05/01: Only small changes in vent made as tolerated. 05/02: Decrease in H/H today, likely anemia of chronic disease. No apparent signs of bleeding. I was able to lower her inspiratory time (PEEP high) slightly without any significant change in SPO2. Her FiO2 was also decreased to 90%. No other significant changes. Plan will be to consult surgery for tracheostomy placement. 05/03/2020: Small incremental changes made on the ventilator today. FiO2 weaned slightly. No other significant changes. 05/04/2020: Patient has had a small bit of progress with weaning her FiO2. We will continue as tolerated and make attempts to wean her bilevel as well today. 05/05/2020: No significant changes over the past 24 hours. Patient has been saturating well with 80 to 90% FiO2. Overall plan today is to continue to wean. Patient will need tracheostomy tube. 05/06: Overall no major change. Has been seen by Dr. Manriquez regarding need for trach 05/05. 05/07: Plan for tracheostomy on 05/08. Review of systems relevant to events:: Pulmonary, neurological. Reason for ICU Addmission:: acute respiratory failure, covid -19 pneumonia, intubated. - Medications: Vasopressors:: None Sedation:: Precedex, fentanyl, versed. Physical Exam Vital Signs: Temp Pulse Resp BP Pulse Ox 98.6 F 83 30 H 127/72 H 92 05/07/20 08:00 05/06/20 19:54 05/06/20 19:54 05/07/20 07:35 05/07/20 08:00 Intake & Output 05/06/20 05/07/20 05/08/20 06:59 06:59 06:59 Intake Total 20156 321 Output Total 7425 5675 275 Balance -4770 -4602 46 Weight 153.5 kg 150.7 kg Weight/Height Weight 150.7 kg Height 5 ft 3 in General appearance: PRESENT: no acute distress Head exam: PRESENT: atraumatic, normocephalic Eye exam: PRESENT: conjunctiva pink, EOMI, PERRLA. ABSENT: scleral icterus Ear exam: PRESENT: normal external ear exam Mouth exam: PRESENT: moist, tongue midline Respiratory exam: PRESENT: clear to auscultation reji, decreased breath sounds. ABSENT: rales, rhonchi, wheezes Cardiovascular exam: PRESENT: RRR. ABSENT: diastolic murmur, rubs, systolic murmur GI/Abdominal exam: PRESENT: normal bowel sounds, soft. ABSENT: distended, guarding, mass, organolmegaly, rebound, tenderness Rectal exam: PRESENT: deferred Gentrourinary exam: PRESENT: indwelling catheter Extremities exam: PRESENT: full ROM. ABSENT: calf tenderness, clubbing, pedal edema Neurological exam: PRESENT: other - Heavily sedated. Skin exam: PRESENT: dry, intact, warm. ABSENT: cyanosis, rash Tubes/Lines: PRESENT: Endotracheal Tube, Central Line, Nasogastic Tube Laboratory/Radiographs Laboratory Results: 05/07/20 05:51 05/05/20 03:59 05/07/20 05/07/20 05:51 05:51 WBC 18.2 H RBC 2.98 L Hgb 7.7 L Hct 23.7 L MCV 80 MCH 26.0 L MCHC 32.6 RDW 24.2 H Plt Count 179 Seg Neutrophils % Not Reportable Triglycerides 212 H 03/21/20 04/11/20 04/14/20 21:58 03:05 01:59 Creatine Kinase Troponin I < 0.012 NT-Pro-B Natriuret Pep 192 H 184 H 04/24/20 04/25/20 04/26/20 14:18 09:01 03:53 Creatine Kinase Troponin I 0.012 NT-Pro-B Natriuret Pep 7620 H 5880 H 04/30/20 03:50 Creatine Kinase 301 H Troponin I NT-Pro-B Natriuret Pep Impressions: Abdomen Ultrasound 04/10/20 00:00 IMPRESSION: NO EVIDENCE FOR ASCITES. KUB X-Ray 04/29/20 00:00 IMPRESSION: NG tube is present with side port and tip overlying the body of the stomach. Chest X-Ray 05/04/20 00:00 IMPRESSION: Improved aeration in the left lung. Mild right basilar atelectasis/ consolidation. All labs, radiographs, diagnostic studies and EKGs were personally reviewed: Yes In addition, reports of radiographic and diagnostic studies were read: Yes Assessment and Plan - Diagnosis (1) Pneumonia due to COVID-19 virus Is this a current diagnosis for this admission?: Yes Plan: Her hypoxia still needs much support. Versed attempted to decrease yesterday but patient dropped oxygenation and had to be placed back on more sedation. (2) Morbid obesity with BMI of 50.0-59.9, adult Is this a current diagnosis for this admission?: Yes Plan: Unchanged. (3) Anemia Is this a current diagnosis for this admission?: Yes Plan: Hgb level at 7.7 not enough to transfuse. (4) Leukocytosis Qualifiers: Leukocytosis type: unspecified Qualified Code(s): D72.829 - Elevated white blood cell count, unspecified Is this a current diagnosis for this admission?: Yes Plan: Level 18K but no sign of infection except Covid at this time. Plan Summary: Tracheostomy 05/08. Stop heparin at 6AM 05/08 Critical Time Critical Time (minutes): 35 Level of Care: ICU Anticipated discharge: SNF Anticipated DC Timeframe: Other -: 1. The care of a critical patient is a dynamic process. This note is a advertising representative synopsis but static in nature. The timeframe for treatments given in order is not necessarily the actual time these treatments may have been done. 2. This patient requires critical care secondary to ongoing requirements for therapy not offered or safe outside the critical care environment. Transfer to a lower level of care will result in altered life or limb morbidity and mortality. 3. Multidisciplinary rounds completed. 4. ABCDE bundle addressed.
[2020-05-07] MEDS: INSULIN GLARGINE,HUM.REC.ANLOG 1,000 UNIT/10 ML VIAL SUBCUT SCH ×2 (10:37→21:32)
[2020-05-07] MEDS: AMINO AC/PROTEIN HYDR/WHEY PRO 11 GM/45 ML PKT NG SCH ×3 (10:38→18:06)
[2020-05-07] MEDS: FUROSEMIDE INJ/PF 40 MG/4 ML SDV IV SCH ×2 (10:38→21:32)
[2020-05-07] MEDS: METHYLPREDNISOLONE INJ 40 MG/1 ML SDV IV SCH (10:39)
[2020-05-07] MEDS: FAMOTIDINE INJ/PF 20 MG/2 ML SDV IV SCH ×2 (10:39→21:31)
[2020-05-07] MEDS: SENNOSIDES/DOCUSATE 8.6-50 MG 1 EACH TABLET NG SCH ×2 (10:55→18:06)
--- NOTE | 2020-05-07 12:31 | PDOC PROGRESS REPORT ---
Subjective Date:: 05/07/20 Subjective:: 44 y/o F with pneumonia, now COVID negative. She remains intubated and sedated. ROS is unobtainable at this time. Reason For Visit: COVID-19 PNEUMONIA, ACUTE HYPOXEMIC RESPIRATORY Physical Exam Vital Signs: Temp Pulse Resp BP Pulse Ox 98.6 F 75 30 H 139/83 H 95 05/07/20 08:00 05/07/20 08:20 05/07/20 08:20 05/07/20 09:34 05/07/20 10:00 Intake & Output 05/06/20 05/07/20 05/08/20 06:59 06:59 06:59 Intake Total 2015 2596 649 Output Total 7425 5675 950 Balance -5409 -3079 -301 Weight 153.5 kg 150.7 kg General appearance: PRESENT: morbidly obese Head exam: PRESENT: atraumatic, normocephalic Eye exam: ABSENT: scleral icterus Mouth exam: PRESENT: moist, neck supple Neck exam: ABSENT: meningismus, tenderness, thyromegaly Respiratory exam: PRESENT: crackles, other - on vent Cardiovascular exam: ABSENT: tachycardia Vascular exam: PRESENT: normal capillary refill GI/Abdominal exam: PRESENT: soft. ABSENT: tenderness Rectal exam: PRESENT: deferred Extremities exam: ABSENT: clubbing Musculoskeletal exam: ABSENT: deformity Neurological exam: ABSENT: alert, awake Psychiatric exam: ABSENT: agitated, anxious Skin exam: ABSENT: erythema, jaundice Results Laboratory Results: 05/07/20 05:51 05/05/20 03:59 05/07/20 05/07/20 05/07/20 05:51 05:51 09:00 WBC 18.2 H RBC 2.98 L Hgb 7.7 L Hct 23.7 L MCV 80 MCH 26.0 L MCHC 32.6 RDW 24.2 H Plt Count 179 Seg Neutrophils % Not Reportable C-Reactive Protein 48.2 H Triglycerides 212 H 03/21/20 04/11/20 04/14/20 21:58 03:05 01:59 Creatine Kinase Troponin I < 0.012 NT-Pro-B Natriuret Pep 192 H 184 H 04/24/20 04/25/20 04/26/20 14:18 09:01 03:53 Creatine Kinase Troponin I 0.012 NT-Pro-B Natriuret Pep 7620 H 5880 H 04/30/20 03:50 Creatine Kinase 301 H Troponin I NT-Pro-B Natriuret Pep Impressions: Abdomen Ultrasound 04/10/20 00:00 IMPRESSION: NO EVIDENCE FOR ASCITES. KUB X-Ray 04/29/20 00:00 IMPRESSION: NG tube is present with side port and tip overlying the body of the stomach. Chest X-Ray 05/04/20 00:00 IMPRESSION: Improved aeration in the left lung. Mild right basilar atelectasis/ consolidation. Assessment & Plan - Diagnosis (1) Ventilator dependence Is this a current diagnosis for this admission?: Yes (2) Acute respiratory failure with hypoxia and hypercapnia Is this a current diagnosis for this admission?: Yes (3) COVID-19 Is this a current diagnosis for this admission?: Yes - Time Anticipated Discharge Disposition: unknown Anticipated Discharge Timeframe: unknown - Plan Summary Plan Summary: 44-year-old female with Covid related pneumonia, now Covid negative. She has been intubated for more than 1 month. She will require tracheostomy, for continued ventilator weaning. Her respiratory status is improving. Plan for tracheostomy at bedside tomorrow. This has been discussed with the patient's surrogate (sister), and she is in agreement with the treatment plan. Risks/benefits discussed, informed consent obtained, all questions answered.
[2020-05-08] MEDS: DEXMEDETOMIDINE IN NS 400 MCG/100 ML RTUPB IV PRN ×10 (00:28→16:45)
[2020-05-08] MEDS: INSULIN REG, HUMAN 100 UNIT/ML 3 ML VIAL (PYX) SUBCUT SCH ×5 (01:15→23:46)
[2020-05-08] MEDS: MIDAZOLAM HCL 50 MG/100 ML RTUINJ IV PRN ×5 (01:19→20:24)
[2020-05-08] MEDS: FENTANYL CITRATE/PF 600 MCG/60 ML BAG IV PRN ×8 (02:40→22:58)
[2020-05-08] MEDS: BUDESONIDE NEB 0.25 MG/2 ML AMPUL NEB SCH ×2 (08:20→20:40)
[2020-05-08] MEDS: ALBUTEROL SULFATE 0.083% NEB 2.5 MG/3 ML AMPUL NEB PRN (08:20)
[2020-05-08] MEDS: FUROSEMIDE INJ/PF 40 MG/4 ML SDV IV SCH ×2 (09:28→21:26)
[2020-05-08] MEDS: METHYLPREDNISOLONE INJ 40 MG/1 ML SDV IV SCH (09:28)
[2020-05-08] MEDS: SENNOSIDES/DOCUSATE 8.6-50 MG 1 EACH TABLET NG SCH ×2 (09:28→18:28)
[2020-05-08] MEDS: FAMOTIDINE INJ/PF 20 MG/2 ML SDV IV SCH ×2 (09:28→21:26)
[2020-05-08] MEDS: AMINO AC/PROTEIN HYDR/WHEY PRO 11 GM/45 ML PKT NG SCH ×3 (09:28→18:28)
[2020-05-08] MEDS ORDERED: BUPIVACAINE HCL 0.25 % INJ/PF (2.5 MG/1 ML) 30 ML VIAL ONE (10:05)
[2020-05-08] MEDS ORDERED: MIDAZOLAM 2 MG/2 ML INJ ONE (10:31)
[2020-05-08] MEDS ORDERED: PROPOFOL INJ 200 MG/20 ML VIAL IV ONE (10:31)
--- NOTE | 2020-05-08 11:24 | Operative Report ---
Nonrecallable Operative Report DATE OF SURGERY: 05/08/20 PREOPERATIVE DIAGNOSIS: bilatateral pneumonia POSTOPERATIVE DIAGNOSIS: same OPERATION: tracheostomy SURGEON: DORINDA MCGRATH ANESTHESIA: GA TISSUE REMOVED OR ALTERED: none COMPLICATIONS: none ESTIMATED BLOOD LOSS: 10cc INTRAOPERATIVE FINDINGS: see note PROCEDURE: Procedure was done in the intensive care unit in the patient's bed. The patient already had an endotracheal tube in place and was sedated on the ventilator bunker worker paralyzed the patient and the neck was prepped and draped in usual sterile fashion. After appropriate timeout and site verification the procedure commenced. Using the Bovie cautery small skin incision was made transversely just below the cricoid cartilage dissection was carried out through subcutaneous tissue with Bovie cautery. Sternal thyroid muscle was divided with Bovie cautery. We identified the top of the thyroid which was also divided longitudinally with Bovie cautery.. The second and third tracheal ring came into view. The trach hook was used to grasped the trachea and pulled up into the wound and then in the second tracheal ring to stay sutures of 2-0 Prolene were placed. The tracheal ring was then divided with Bovie cautery and Metzenbaum scissors and spread with the tracheostomy spreaders. A 7 Fijian Shiley tracheostomy tube was placed in to the tracheostomy after the endotracheal tube was pulled back by the bunker worker. The balloon was blown up and held air and it was connected to the ventilator with good flow. The tracheostomy device was tacked to the skin on the neck with 2-0 Prolene suture for sutures were placed and then the tracheal collar. A sterile dressing was applied. This completed the procedure. Estimated blood loss was less than 10 cc.
[2020-05-08] MEDS ORDERED: SUCCINYLCHOLINE CHLORIDE INJ 200 MG/10 ML VIAL ONE (12:02)
[2020-05-08] MEDS ORDERED: ROCURONIUM BROMIDE INJ 50 MG/5 ML VIAL IV ONE (12:02)
--- NOTE | 2020-05-08 12:03 | RADIOLOGY REPORT (SQ) ---
EXAM DESCRIPTION: CHEST SINGLE VIEW IMAGES COMPLETED DATE/TIME: 05/08/2020 11:46 am REASON FOR STUDY: new tracheostostomy COMPARISON: 05/04/2020 EXAM PARAMETERS: NUMBER OF VIEWS: One view. TECHNIQUE: Single frontal radiographic view of the chest acquired. RADIATION DOSE: NA LIMITATIONS: None. FINDINGS: LUNGS AND PLEURA: Diffuse bilateral interstitial opacities. No dense consolidation. No l arge effusion. MEDIASTINUM AND HILAR STRUCTURES: No masses. Contour normal. HEART AND VASCULAR STRUCTURES: Enlarged, stable. BONES: No acute findings. HARDWARE: Tracheostomy tube tip overlies midthoracic trachea. Left internal jugular central venous c atheter tip overlies innominate. Enteric tube tip below diaphragm. OTHER: No other significant finding. IMPRESSION: Enlarged cardiac silhouette with diffuse bilateral interstitial opacities, likely edema. Atypical infection is not excluded. Tracheostomy tube tip overlies midthoracic trachea. Additional lines and tubes as above. TECHNICAL DOCUMENTATION: JOB ID: [id number] 2010 [employer]- All Rights Reserved Reading location - IP/workstation name: [email or web address]
[2020-05-08] MEDS: INSULIN GLARGINE,HUM.REC.ANLOG 1,000 UNIT/10 ML VIAL SUBCUT SCH ×2 (14:16→21:26)
--- NOTE | 2020-05-08 17:40 | PDOC CRITICAL CARE PROG REPORT ---
General Date:: 05/08/20 Resuscitation Status: Full Code Events in the past 12 to 24 Hours:: This 44-year-old -[place] female presented to [facility] emergency department on 03/21/2020 with complaints of possible presyncope versus syncope in addition to fever, chills, productive cough, dyspnea and exertional dyspnea. She has a history of psychiatric disorders and is known to be a difficult historian. Nonetheless, the patient also was known to have been diagnosed with COVID-19 pneumonia on 03/17/2020 and had subsequently been evaluated in the emergency department. She was apparently discharged home with prescriptions for azithromycin and other medications for symptomatic treatment. She returned with worsening shortness of breath and newly demonstrating supplemental oxygen requirement. 04/09-04/10: Remains intubated. Sedated with Precedex/Versed/fentanyl. On pressure control mode with peak and plateau pressures in the 40s. On insulin infusion for glucose control. On Glucerna + Prosource. KUB obtained showed a gasless abdomen, incongruent with physical exam (possibly due to morbid obesity). Still no BM. 04/11-: Had brisk diuresis with furosemide 40 mg IV single dose (2600 mL urine output), which resulted in a decrease in CVP. However, CVP is now back up to 910. On PRVC mode. ABG this a.m.: 7.46/46/53. Creatinine 0.6. WBC 17.3>11.4. Still no BM. On Versed/fentanyl/Precedex for sedation. Opens eyes to physical stimuli. Tube feeding currently on hold due to high residuals. Of note, even in the absence of tube feeding, the patient is having gastric residuals in the 200s. She does demonstrate spontaneous eye opening. She does not follow commands. 04/13-: Switched to BiVENT/APRV on 04/12/2020 (FiO2 80%, P high 17, T high 9.5 seconds, P low 3, T low 0.5 seconds). ABG this a.m.: 7.42/50/72. Off insulin infusion. Overnight, the patient had an episode of hypoglycemia (40) despite being on trickle tube feeds. Blood cultures (04/13) isolated gram-positive cocci in clusters. Tracheal aspirate (04/13) isolated Staphylococcus aureus. GPC is MSSA sens to rocephin. Still unsure if it's a contaminate. No progress made on ventilator. Changed back to PRVC on 04/16. Still 100% and PEEP 14. 04/18: CXR looks better. Will try weaning today. FiO2 first. 04/19-: Not able to wean yesterday. O2 saturations 95-96%. Will wean PEEP. Down to 10 in effort to lower PEEP for trach which I believe she will need. No weaning on drips yet. Will need trach and PEG. O2 saturations worse, in mid to low 80s on 100%. Talked with Dr. Owen regarding need for trach next week. 04/23: Remains intubated. On rocuronium, Versed and fentanyl infusions. FiO2 95%. PRVC. WBC 13.6. D-dimer 3.14. CRP 59.1. Magnesium 1.5. 04/24: Rocuronium was discontinued yesterday. The patient's ventilator mode was switched to BiVENT. Versed changed to propofol. Still on fentanyl. On BiVENT. [place] sedated. 04/25: Yesterday afternoon, she developed acute hypoxemic decompensation followed by profound hypotension. Clinically, this was highly suspicious for pulmonary embolism. She was started on heparin infusion. SVO2 was found to be 15%. She was started on dobutamine. Ventilator settings were changed. She is still on BiVENT/APRV but now with settings that closely mimic inverse I:E pressure control ventilation. FiO2 100%. P high 20, P low 10, T high 1.5, T low 0.5. 04/26: COVID-19 (HUGH from 04/23) finally returned to negative result. Dobutamine changed to milrinone yesterday. Still on BiVENT/APRV but has been tolerating lower pressures in longer T high times. Had an episode of oxygen desaturation again this morning. Clinically, it appears that she is having increased secretions from the airway, possibly with mucous plugging. Settings were changed subsequent to oxygen desaturation: P high 30, P low 10, T high 1.5, T low 0.5. ABG this a.m.: 7.36/51/69. Diuresing, -869 mL yesterday. proBNP 5880. BM +. 04/27: [place] sedated, synchronous with ventilator. BG this a.m. 7.28/64/78. W BC 25.8 this AM. CRP 200. D-dimer 2.04. 04/28: WBC down to 25.8>14.8 this AM. Not on antibiotics. However, hemoglobin also dropped to 6.6. Repeat hemoglobin 6.2. No obvious blood loss. Blood urine and tracheal aspirate cultures from 04/27 pending. On propofol/Precedex/fentanyl. Triglycerides 183. 04/29: Febrile (T-max 24-hour 102.7 Fahrenheit), reportedly refractory to Tylenol and cooling blanket. WBC 28.3. Hemoglobin 6.2>9 after transfusion of 2 units PRBC yesterday. Started on vancomycin overnight due to gram-positive cocci in trach aspirate (04/27), which are now being reported as MRSA. Also, blood cultures (1 of 2) are growing out Staphylococcus species, possibly a con taminant. Still on propofol/Precedex/fentanyl for sedation. Started Versed overnight as well. On BiVENT/APRV: P high 20, P low 3, T high 5.5, T low 0.5. + PSV 15. 04/30: Bun/Cr slightly up. Vancomycin stopped. Linezolid started. Off propofol, may have had propofol infusion syndrome. 05/01: Only small changes in vent made as tolerated. 05/02: Decrease in H/H today, likely anemia of chronic disease. No apparent signs of bleeding. I was able to lower her inspiratory time (PEEP high) slight ly without any significant change in SPO2. Her FiO2 was also decreased to 90%. No other significant changes. Plan will be to consult surgery for tracheostomy placement. 05/03/2020: Small incremental changes made on the ventilator today. FiO2 weaned slightly. No other significant changes. 05/04/2020: Patient has had a small bit of progress with weaning her FiO2. We will continue as tolerated and make attempts to wean her bilevel as well today. 05/05/2020: No significant changes over the past 24 hours. Patient has been saturating well with 80 to 90% FiO2. Overall plan today is to continue to wean. Patient will need tracheostomy tube. 05/06: Overall no major change. Has been seen by Dr. Manriquez regarding need for trach 05/05. 05/07: Plan for tracheostomy on 05/08. 05/08: Patient underwent uneventful tracheostomy today. Review of systems relevant to events:: Pulmonary Reason for ICU Addmission:: acute respiratory failure, covid -19 pneumonia, intubated. - Medications: Medications reviewed and adjusted accordingly: Yes Sedation:: Fentanyl, Versed Physical Exam Vital Signs: Temp Pulse Resp BP Pulse Ox 97.3 F 74 15 125/83 100 05/08/20 10:45 05/08/20 10:45 05/08/20 10:45 05/08/20 16:37 05/08/20 16:55 Intake & Output 05/07/20 05/08/20 05/09/20 06:59 06:59 06:59 Intake Total 2596 2402 800 Output Total 5647 7330 2410 Balance -4402 -2755 -8470 Weight 150.7 kg 145.3 kg Weight/Height Weight 145.3 kg Height 5 ft 3 in General appearance: PRESENT: no acute distress Head exam: PRESENT: atraumatic, normocephalic Eye exam: PRESENT: conjunctiva pink, EOMI, PERRLA. ABSENT: scleral icterus Ear exam: PRESENT: normal external ear exam Mouth exam: PRESENT: moist, tongue midline Neck exam: PRESENT: tracheostomy Respiratory exam: PRESENT: clear to auscultation reji. ABSENT: rales, rhonchi, wheezes Cardiovascular exam: PRESENT: RRR. ABSENT: diastolic murmur, rubs, systolic murmur GI/Abdominal exam: PRESENT: normal bowel sounds, soft. ABSENT: distended, guarding, mass, organolmegaly, rebound, tenderness Rectal exam: PRESENT: deferred Gentrourinary exam: PRESENT: indwelling catheter Extremities exam: PRESENT: full ROM. ABSENT: calf tenderness, clubbing, pedal edema Neurological exam: PRESENT: other - Sedated Skin exam: PRESENT: dry, intact, warm. ABSENT: cyanosis, rash Tubes/Lines: PRESENT: Central Line, Nasogastic Tube, Other - Trach Laboratory/Radiographs Laboratory Results: 05/07/20 05:51 05/05/20 03:59 03/21/20 04/11/20 04/14/20 21:58 03:05 01:59 Creatine Kinase Troponin I < 0.012 NT-Pro-B Natriuret Pep 192 H 184 H 04/24/20 04/25/20 04/26/20 14:18 09:01 03:53 Creatine Kinase Troponin I 0.012 NT-Pro-B Natriuret Pep 7620 H 5880 H 04/30/20 03:50 Creatine Kinase 301 H Troponin I NT-Pro-B Natriuret Pep Impressions: Abdomen Ultrasound 04/10/20 00:00 IMPRESSION: NO EVIDENCE FOR ASCITES. KUB X-Ray 04/29/20 00:00 IMPRESSION: NG tube is present with side port and tip overlying the body of the stomach. Chest X-Ray 05/08/20 00:00 IMPRESSION: Enlarged cardiac silhouette with diffuse bilateral interstitial opacities, likely edema. Atypical infection is not excluded. Tracheostomy tube tip overlies midthoracic trachea. Additional lines and tubes as above. All labs, radiographs, diagnostic studies and EKGs were personally reviewed: Yes In addition, reports of radiographic and diagnostic studies were read: Yes Assessment and Plan - Diagnosis (1) Pneumonia due to COVID-19 virus Is this a current diagnosis for this admission?: Yes Plan: Tested negtive recently (2) Morbid obesity with BMI of 50.0-59.9, adult Is this a current diagnosis for this admission?: Yes (3) Anemia Is this a current diagnosis for this admission?: Yes Plan: Hgb level 7.7. May need transfusion soon. (4) Leukocytosis Qualifiers: Leukocytosis type: unspecified Qualified Code(s): D72.829 - Elevated white blood cell count, unspecified Is this a current diagnosis for this admission?: Yes Plan: WBC 18K but no sign of obvious infection. Plan Summary: Now that she has a trach, we can start coming down on sedation. Critical Time Critical Time (minutes): 35 Level of Care: ICU Anticipated discharge: SNF Anticipated DC Timeframe: Other -: 1. The care of a critical patient is a dynamic process. This note is a merchandiser retail representative synopsis but static in nature. The timeframe for treatments given in order is not necessarily the actual time these treatments may have been done. 2. This patient requires critical care secondary to ongoing requirements for therapy not offered or safe outside the critical care environment. Transfer to a lower level of care will result in altered life or limb morbidity and mortality. 3. Multidisciplinary rounds completed. 4. ABCDE bundle addressed.
[2020-05-08] MEDS ORDERED: DEXMEDETOMIDINE IN 0.9 % NACL 400 MCG/100 ML RTUPB IV ONE (18:06)
[2020-05-08] MEDS: DEXMEDETOMIDINE IN 0.9 % NACL 400 MCG/100 ML RTUPB IV PRN ×4 (18:36→23:46)
[2020-05-08 22:36] LABS: ARTERIAL BLOOD BASE EXCESS 9.9 mmol/L; ARTERIAL BLOOD HCO3 34.3 mmol/L (20-24); ARTERIAL BLOOD O2 SATURATION 94.4 % (94-98); ARTERIAL BLOOD PCO2 46.6 mmHg (35-45); ARTERIAL BLOOD PH 7.49 (7.35-7.45); ARTERIAL BLOOD PO2 66.8 mmHg (80-100); ARTERIAL BLOOD TOTAL CO2 35.7 mmol/L (21-25)
[2020-05-08 22:48] LABS: ARTERIAL BLOOD FIO2 80%
[2020-05-09] MEDS: DEXMEDETOMIDINE IN 0.9 % NACL 400 MCG/100 ML RTUPB IV PRN ×12 (01:12→21:03)
[2020-05-09 01:20] LABS: ARTERIAL BLOOD FIO2 80%; ARTERIAL BLOOD H2CO3 1.41 mmol/L (1.05-1.35); ARTERIAL BLOOD HCO3 30.8 mmol/L (20-24); ARTERIAL BLOOD O2 SATURATION 95.3 % (94-98); ARTERIAL BLOOD PCO2 46.7 mmHg (35-45); ARTERIAL BLOOD PH 7.44 (7.35-7.45); ARTERIAL BLOOD PO2 74.7 mmHg (80-100); ARTERIAL BLOOD TOTAL CO2 32.2 mmol/L (21-25)
[2020-05-09] MEDS: FENTANYL CITRATE/PF 600 MCG/60 ML BAG IV PRN ×5 (01:50→23:39)
[2020-05-09] MEDS: MIDAZOLAM HCL 50 MG/100 ML RTUINJ IV PRN ×3 (02:16→21:27)
[2020-05-09] MEDS ORDERED: HEPARIN SODIUM,PORCINE/D5W 25,000 UNIT/250 ML RTUINJ IV ONE (02:30)
[2020-05-09] MEDS: HEPARIN SODIUM,PORCINE/D5W 25,000 UNIT/250 ML RTUINJ IV PRN ×2 (02:34→19:51)
[2020-05-09] MEDS: INSULIN REG, HUMAN 100 UNIT/ML 3 ML VIAL (PYX) SUBCUT SCH ×3 (05:35→19:05)
[2020-05-09 06:01] LABS: ABSOLUTE BASOPHILS # (AUTO) 0.1 10^3/uL (0.0-0.2); ABSOLUTE EOSINOPHILS # (AUTO) 0.2 10^3/uL (0.0-0.6); ABSOLUTE LYMPHOCYTES (AUTO) 1.8 10^3/uL (0.5-4.7); ABSOLUTE MONOCYTES (AUTO) 0.9 10^3/uL (0.1-1.4); ABSOLUTE NEUT (AUTO) 14.9 10^3/uL (1.7-8.2); BASOPHILS % (AUTO) 0.4 % (0-2); EOSINOPHILS % (AUTO) 1.2 % (0-6); HEMATOCRIT 21.2 % (36.0-47.0); LYMPHOCYTES % (AUTO) 10.2 % (13-45); MEAN CORPUSCULAR HEMOGLOBIN 25.9 pg (27.0-33.4); MEAN CORPUSCULAR HGB CONC 31.9 g/dL (32.0-36.0); MEAN CORPUSCULAR VOLUME 81 fl (80-97); MONOCYTES % (AUTO) 5.1 % (3-13); PLATELET COUNT 202 10^3/uL (150-450); RED BLOOD COUNT 2.61 10^6/uL (3.72-5.28); SEGMENTED NEUTROPHILS % (AUTO) 83.1 % (42-78); TOTAL CELLS COUNTED % (AUTO) 100 %
[2020-05-09 06:26] LABS: PARTIAL THROMBOPLASTIN TIME 63.2 SEC (23.5-35.8)
[2020-05-09 06:28] LABS: D-DIMER 1.62 ug/mL (0.00-0.50)
[2020-05-09 06:41] LABS: ANISOCYTOSIS 3+; HYPOCHROMASIA SLIGHT; PLATELET CLUMPS PRESENT; POIKILOCYTOSIS 1+; POLYCHROMASIA 1+; TEAR DROP CELLS SLIGHT; TOXIC GRANULATION SLIGHT; TOXIC VACUOLATION PRESENT
[2020-05-09 06:42] LABS: PLATELET COMMENT ADEQUATE
[2020-05-09] MEDS: ALBUTEROL SULFATE 0.083% NEB 2.5 MG/3 ML AMPUL NEB PRN (08:34)
[2020-05-09] MEDS: BUDESONIDE NEB 0.25 MG/2 ML AMPUL NEB SCH (08:34)
[2020-05-09] MEDS: SENNOSIDES/DOCUSATE 8.6-50 MG 1 EACH TABLET NG SCH ×2 (09:25→17:19)
[2020-05-09] MEDS: FUROSEMIDE INJ/PF 40 MG/4 ML SDV IV SCH ×2 (09:25→21:27)
[2020-05-09] MEDS: FAMOTIDINE INJ/PF 20 MG/2 ML SDV IV SCH ×2 (09:25→21:27)
[2020-05-09] MEDS: METHYLPREDNISOLONE INJ 40 MG/1 ML SDV IV SCH (09:25)
[2020-05-09] MEDS: LABETALOL HCL INJ 20 MG/4 ML DISP.SYRIN IV PRN (11:28)
--- NOTE | 2020-05-09 11:40 | PDOC CRITICAL CARE PROG REPORT ---
General Date:: 05/09/20 ICU Day:: 38 Ventilator Day:: 38 Hospital Day:: 48 Resuscitation Status: Full Code Events in the past 12 to 24 Hours:: This 44-year-old -[place] female presented to [facility] emergency department on 03/21/2020 with complaints of possible presyncope versus syncope in addition to fever, chills, productive cough, dyspnea and exertional dyspnea. She has a history of psychiatric disorders and is known to be a difficult historian. Nonetheless, the patient also was known to have been diagnosed with COVID-19 pneumonia on 03/17/2020 and had subsequently been evaluated in the emergency department. She was apparently discharged home with prescriptions for azithromycin and other medications for symptomatic treatment. She returned with worsening shortness of breath and newly demonstrating supplemental oxygen requirement. 04/09-04/10: Remains intubated. Sedated with Precedex/Versed/fentanyl. On pressure control mode with peak and plateau pressures in the 40s. On insulin infusion for glucose control. On Glucerna + Prosource. KUB obtained showed a gasless abdomen, incongruent with physical exam (possibly due to morbid obesity). Still no BM. 04/11-: Had brisk diuresis with furosemide 40 mg IV single dose (2600 mL urine output), which resulted in a decrease in CVP. However, CVP is now back up to 910. On PRVC mode. ABG this a.m.: 7.46/46/53. Creatinine 0.6. WBC 17.3>11.4. Still no BM. On Versed/fentanyl/Precedex for sedation. Opens eyes to physical stimuli. Tube feeding currently on hold due to high residuals. Of note, even in the absence of tube feeding, the patient is having gastric residuals in the 200s. She does demonstrate spontaneous eye opening. She does not follow commands. 04/13-: Switched to BiVENT/APRV on 04/12/2020 (FiO2 80%, P high 17, T high 9.5 seconds, P low 3, T low 0.5 seconds). ABG this a.m.: 7.42/50/72. Off insulin infusion. Overnight, the patient had an episode of hypoglycemia (40) despite being on trickle tube feeds. Blood cultures (04/13) isolated gram-positive cocci in clusters. Tracheal aspirate (04/13) isolated Staphylococcus aureus. GPC is MSSA sens to rocephin. Still unsure if it's a contaminate. No progress made on ventilator. Changed back to PRVC on 04/16. Still 100% and PEEP 14. 04/18: CXR looks better. Will try weaning today. FiO2 first. 04/19-: Not able to wean yesterday. O2 saturations 95-96%. Will wean PEEP. Down to 10 in effort to lower PEEP for trach which I believe she will need. No weaning on drips yet. Will need trach and PEG. O2 saturations worse, in mid to low 80s on 100%. Talked with Dr. Owen regarding need for trach next week. 04/23: Remains intubated. On rocuronium, Versed and fentanyl infusions. FiO2 95%. PRVC. WBC 13.6. D-dimer 3.14. CRP 59.1. Magnesium 1.5. 04/24: Rocuronium was discontinued yesterday. The patient's ventilator mode was switched to BiVENT. Versed changed to propofol. Still on fentanyl. On BiVENT. [place] sedated. 04/25: Yesterday afternoon, she developed acute hypoxemic decompensation followed by profound hypotension. Clinically, this was highly suspicious for pulmonary embolism. She was started on heparin infusion. SVO2 was found to be 15%. She was started on dobutamine. Ventilator settings were changed. She is still on BiVENT/APRV but now with settings that closely mimic inverse I:E pressure control ventilation. FiO2 100%. P high 20, P low 10, T high 1.5, T low 0.5. 04/26: COVID-19 (HUGH from 04/23) finally returned to negative result. Dobutamine changed to milrinone yesterday. Still on BiVENT/APRV but has been tolerating lower pressures in longer T high times. Had an episode of oxygen desaturation again this morning. Clinically, it appears that she is having increased secretions from the airway, possibly with mucous plugging. Settings were changed subsequent to oxygen desaturation: P high 30, P low 10, T high 1.5, T low 0.5. ABG this a.m.: 7.36/51/69. Diuresing, -869 mL yesterday. proBNP 5880. BM +. 04/27: [place] sedated, synchronous with ventilator. BG this a.m. 7.28/64/78. WBC 25.8 this AM. CRP 200. D-dimer 2.04. 04/28: WBC down to 25.8>14.8 this AM. Not on antibiotics. However, hemoglobin also dropped to 6.6. Repeat hemoglobin 6.2. No obvious blood loss. Blood urine and tracheal aspirate cultures from 04/27 pending. On propofol/Pre cedex/fentanyl. Triglycerides 183. 04/29: Febrile (T-max 24-hour 102.7 Fahrenheit), reportedly refractory to Tylenol and cooling blanket. WBC 28.3. Hemoglobin 6.2>9 after transfusion of 2 units PRBC yesterday. Started on vancomycin overnight due to gram-positive cocci in trach aspirate (04/27), which are now being reported as MRSA. Also, blood cultures (1 of 2) are growing out Staphylococcus species, possibly a contaminant. Still on propofol/Precedex/fentanyl for sedation. Started Versed overnight as well. On BiVENT/APRV: P high 20, P low 3, T high 5.5, T low 0.5. + PSV 15. 04/30: Bun/Cr slightly up. Vancomycin stopped. Linezolid started. Off propofol, may have had propofol infusion syndrome. 05/01: Only small changes in vent made as tolerated. 05/02: Decrease in H/H today, likely anemia of chronic disease. No apparent signs of bleeding. I was able to lower her inspiratory time (PEEP high) slightly without any significant change in SPO2. Her FiO2 was also decreased to 90%. No other significant changes. Plan will be to consult surgery for tracheostomy placement. 05/03/2020: Small incremental changes made on the ventilator today. FiO2 weaned slightly. No other significant changes. 05/04/2020: Patient has had a small bit of progress with weaning her FiO2. We will continue as tolerated and make attempts to wean her bilevel as well today. 05/05/2020: No significant changes over the past 24 hours. Patient has been saturating well with 80 to 90% FiO2. Overall plan today is to continue to wean. Patient will need tracheostomy tube. 05/06: Overall no major change. Has been seen by Dr. Manriquez regarding need for trach 05/05. 05/07: Plan for tracheostomy on 05/08. 05/08: Patient underwent uneventful tracheostomy today. 05/09: Starting to come down on sedation. Review of systems relevant to events:: Neurological, pulmonary. Reason for ICU Addmission:: acute respiratory failure, covid -19 pneumonia, intubated. - Medications: Medications reviewed and adjusted accordingly: Yes Vasopressors:: None Sedation:: Fentanyl, versed, precedex. Physical Exam Vital Signs: Temp Pulse Resp BP Pulse Ox 97.5 F 71 15 113/64 94 05/09/20 06:00 05/09/20 07:00 05/08/20 20:50 05/09/20 06:42 05/09/20 06:42 Intake & Output 05/08/20 05/09/20 05/10/20 06:59 06:59 06:59 Intake Total 2402 1789 100 Output Total 4750 4915 250 Balance -2348 -3126 -150 Weight 145.3 kg 143.8 kg Weight/Height Weight 143.8 kg Height 5 ft 3 in General appearance: PRESENT: no acute distress, morbidly obese Head exam: PRESENT: atraumatic, normocephalic Eye exam: PRESENT: conjunctiva pink, EOMI, PERRLA. ABSENT: scleral icterus Ear exam: PRESENT: normal external ear exam Mouth exam: PRESENT: moist, tongue midline Respiratory exam: PRESENT: clear to auscultation reji. ABSENT: rales, rhonchi, wheezes Cardiovascular exam: PRESENT: RRR, tachycardia. ABSENT: diastolic murmur, rubs, systolic murmur GI/Abdominal exam: PRESENT: normal bowel sounds, soft. ABSENT: distended, guarding, mass, organolmegaly, rebound, tenderness Rectal exam: PRESENT: deferred Gentrourinary exam: PRESENT: indwelling catheter Extremities exam: PRESENT: full ROM. ABSENT: calf tenderness, clubbing, pedal edema Musculoskeletal exam: PRESENT: normal inspection Neurological exam: PRESENT: altered, other - Moves and is occassionaly agitated. Nothing purposeful. Skin exam: PRESENT: dry, intact, warm. ABSENT: cyanosis, rash Tubes/Lines: PRESENT: Central Line, Nasogastic Tube, Other - Trach Laboratory/Radiographs Laboratory Results: 05/09/20 05:00 05/05/20 03:59 05/08/20 05/09/20 05/09/20 22:15 00:52 05:00 WBC 18.0 H RBC 2.61 L Hgb 6.8 L Hct 21.2 L MCV 81 MCH 25.9 L MCHC 31.9 L RDW 24.0 H Plt Count 202 Seg Neutrophils % 83.1 H Carbonic Acid 1.40 H 1.41 H HCO3/H2CO3 Ratio 24:1 21:1 ABG pH 7.49 H 7.44 ABG pCO2 46.6 H 46.7 H ABG pO2 66.8 L 74.7 L ABG HCO3 34.3 H 30.8 H ABG O2 Saturation 94.4 95.3 ABG Base Excess 9.9 6.0 FiO2 80% 80% C-Reactive Protein 05/09/20 05:00 WBC RBC Hgb Hct MCV MCH MCHC RDW Plt Count Seg Neutrophils % Carbonic Acid HCO3/H2CO3 Ratio ABG pH ABG pCO2 ABG pO2 ABG HCO3 ABG O2 Saturation ABG Base Excess FiO2 C-Reactive Protein 76.1 H 03/21/20 04/11/20 04/14/20 21:58 03:05 01:59 Creatine Kinase Troponin I < 0.012 NT-Pro-B Natriuret Pep 192 H 184 H 04/24/20 04/25/20 04/26/20 14:18 09:01 03:53 Creatine Kinase Troponin I 0.012 NT-Pro-B Natriuret Pep 7620 H 5880 H 04/30/20 03:50 Creatine Kinase 301 H Troponin I NT-Pro-B Natriuret Pep Impressions: Abdomen Ultrasound 04/10/20 00:00 IMPRESSION: NO EVIDENCE FOR ASCITES. KUB X-Ray 04/29/20 00:00 IMPRESSION: NG tube is present with side port and tip overlying the body of the stomach. Chest X-Ray 05/08/20 00:00 IMPRESSION: Enlarged cardiac silhouette with diffuse bilateral interstitial opacities, likely edema. Atypical infection is not excluded. Tracheostomy tube tip overlies midthoracic trachea. Additional lines and tubes as above. All labs, radiographs, diagnostic studies and EKGs were personally reviewed: Yes In addition, reports of radiographic and diagnostic studies were read: Yes Assessment and Plan - Diagnosis (1) Pneumonia due to COVID-19 virus Is this a current diagnosis for this admission?: Yes Plan: She has tested negative. She can come off COVID precautions now. (2) Morbid obesity with BMI of 50.0-59.9, adult Is this a current diagnosis for this admission?: Yes Plan: Unchanged (3) Anemia Is this a current diagnosis for this admission?: Yes Plan: Level og Hgb 6.8. Needs transfusion. No sign of bleeding. (4) Leukocytosis Qualifiers: Leukocytosis type: unspecified Qualified Code(s): D72.829 - Elevated white blood cell count, unspecified Is this a current diagnosis for this admission?: Yes Plan: BC 18K. No obvious infection yet. No evidence of VAP. Plan Summary: Both versed and fentanyl weaning down. Continue to wean. Critical Time Critical Time (minutes): 35 Level of Care: ICU Anticipated discharge: SNF Anticipated DC Timeframe: Other -: 1. The care of a critical patient is a dynamic process. This note is a equal opportunity representative synopsis but static in nature. The timeframe for treatments given in order is not necessarily the actual time these treatments may have been done. 2. This patient requires critical care secondary to ongoing requirements for t herapy not offered or safe outside the critical care environment. Transfer to a lower level of care will result in altered life or limb morbidity and mortality. 3. Multidisciplinary rounds completed. 4. ABCDE bundle addressed.
[2020-05-09] MEDS: INSULIN GLARGINE,HUM.REC.ANLOG 1,000 UNIT/10 ML VIAL SUBCUT SCH ×2 (11:58→21:28)
[2020-05-09] MEDS: ACETAMINOPHEN SOLN 325 MG/10.15 ML UDCUP NG PRN (13:30)
[2020-05-09] MEDS: AMINO AC/PROTEIN HYDR/WHEY PRO 11 GM/45 ML PKT NG SCH ×3 (14:56→17:19)
[2020-05-09] MEDS: ACETAMINOPHEN 325 MG TABLET PO PRN (17:19)
[2020-05-09 21:36] LABS: HEMATOCRIT 20.6 % (36.0-47.0); MEAN CORPUSCULAR HEMOGLOBIN 26.3 pg (27.0-33.4); MEAN CORPUSCULAR HGB CONC 31.4 g/dL (32.0-36.0); MEAN CORPUSCULAR VOLUME 84 fl (80-97); PLATELET COUNT 221 10^3/uL (150-450); RED BLOOD COUNT 2.46 10^6/uL (3.72-5.28); RED CELL DISTRIBUTION WIDTH 23.4 % (11.5-14.0)
[2020-05-09 21:49] LABS: ALBUMIN 2.9 g/dL (3.5-5.0); ALKALINE PHOSPHATASE 125 U/L (38-126); ANION GAP 11 (5-19); ASPARTATE AMINO TRANSFERASE 44 U/L (14-36); BILIRUBIN,DIRECT 0.5 mg/dL (0.0-0.4); BILIRUBIN,TOTAL 1.2 mg/dL (0.2-1.3); BLOOD UREA NITROGEN 74 mg/dL (7-20); CALCIUM 9.4 mg/dL (8.4-10.2); CARBON DIOXIDE 33 mmol/L (22-30); CHLORIDE 97 mmol/L (98-107); GLUCOSE 218 mg/dL (75-110); POTASSIUM 3.4 mmol/L (3.6-5.0); TOTAL PROTEIN 5.8 g/dL (6.3-8.2)
[2020-05-09 22:11] LABS: HEMOGLOBIN 6.5 g/dL (12.0-15.5); WHITE BLOOD COUNT 42.7 10^3/uL (4.0-10.5)
[2020-05-09 22:16] LABS: ABSOLUTE LYMPHOCYTES# (MANUAL) 1.3 10^3/uL (0.5-4.7); ABSOLUTE MONOCYTES # (MANUAL) 1.3 10^3/uL (0.1-1.4); BASOPHILS % (MANUAL) 0 % (0-2); EOSINOPHILS % (MANUAL) 0 % (0-6); LYMPHOCYTES % (MANUAL) 3 % (13-45); MONOCYTES % (MANUAL) 3 % (3-13); NUCLEATED RED BLOOD CELLS 1 /100 WBC (0); SEGMENTED NEUTROPHILS % (MAN) 94 % (42-78); TOTAL CELLS COUNTED 100
[2020-05-09 22:18] LABS: ANISOCYTOSIS 3+; PLATELET COMMENT ADEQUATE; PLATELET LARGE PRESENT; POLYCHROMASIA SLIGHT; STOMATOCYTES SLIGHT
[2020-05-10] MEDS: INSULIN REG, HUMAN 100 UNIT/ML 3 ML VIAL (PYX) SUBCUT SCH ×4 (00:16→17:32)
[2020-05-10] MEDS: DEXMEDETOMIDINE IN 0.9 % NACL 400 MCG/100 ML RTUPB IV PRN ×12 (00:17→23:06)
[2020-05-10] MEDS ORDERED: NORMAL SALINE 250 ML IV PRN ×2 (02:32)
[2020-05-10] MEDS ORDERED: MIDAZOLAM 2 MG/2 ML INJ ONE (02:45)
--- NOTE | 2020-05-10 03:23 | Operative Report ---
Bedside Procedure - History of Present Illness Indication for Procedure: bacteremic replaced old line Date: 05/10/20 Provider: ERIC [place]TA[place] - Central Line Right Internal jugular Time completed: 03:15 Consent obtained: Yes Central line pre-insertion: Sterile PPE donned, Chloraprep applied, Sterile drapes applied Central line lumen type: Triple Anesthetic type: 1% Lidocaine mL's of anesthesia: 3 Ultrasound guided: Yes CM at insertion site: 16 Line secured with sutures: Yes Central line post-insertion: Blood return from lumens, Biopatch applied, Sutured, Sterile dressing applied, Position confirmed w/ CXR Complications: No
--- NOTE | 2020-05-10 03:26 | RADIOLOGY REPORT (SQ) ---
CHEST X-RAY 1 VIEW on 05/10/2020 at 2:11 AM CLINICAL INDICATION: Hypoxia COMPARISON: 05/08/2020 FINDINGS: Tracheostomy tube tip is in the mid thoracic trachea. Left IJ catheter tip is in the SVC. NG tube extends into the stomach and below the level of this film. Multiple wires are noted projecting over the chest. Mild cardiomegaly is noted. There has been no significant change in bilateral interstitial and airspace opacities consistent with edema and/or pneumonia, differential diagnosis would include viral infections. IMPRESSION: No significant change in the appearance of the chest.
[2020-05-10] MEDS: FENTANYL CITRATE/PF 600 MCG/60 ML BAG IV PRN ×7 (03:31→23:06)
[2020-05-10] MEDS ORDERED: NORMAL SALINE INJ/PF 0.9% 10 ML SDV IV PRN (04:15)
--- NOTE | 2020-05-10 04:29 | RADIOLOGY REPORT (SQ) ---
EXAM DESCRIPTION: Site: CHEST SINGLE VIEW RP: XR CHEST 1 VIEW CLINICAL HISTORY: 44 years Female; RIJ central line placement FINDINGS: AP chest at 0356. Since 0211, the left IJ line has been removed and a right IJ line placed, tip at the cavoatrial junction. No pneumothorax. Enteric tube extends into the stomach. Tracheostomy remains in place. Bilateral infiltrates are unchanged. IMPRESSION: Right IJ line tip at the cavoatrial junction. No pneumothorax.
[2020-05-10] MEDS ORDERED: LINEZOLID 600 MG/300 ML RTUPB IV SCH (06:00)
[2020-05-10] MEDS: MIDAZOLAM HCL 50 MG/100 ML RTUINJ IV PRN (07:12)
[2020-05-10 08:16] LABS: HEMOGLOBIN 6.8 g/dL (12.0-15.5)
[2020-05-10] MEDS: FUROSEMIDE INJ/PF 40 MG/4 ML SDV IV SCH ×2 (09:25→21:38)
[2020-05-10] MEDS: FAMOTIDINE INJ/PF 20 MG/2 ML SDV IV SCH ×2 (09:26→21:38)
[2020-05-10] MEDS: METHYLPREDNISOLONE INJ 40 MG/1 ML SDV IV SCH (09:26)
[2020-05-10] MEDS: AMINO AC/PROTEIN HYDR/WHEY PRO 11 GM/45 ML PKT NG SCH ×3 (09:26→17:32)
[2020-05-10] MEDS: SENNOSIDES/DOCUSATE 8.6-50 MG 1 EACH TABLET NG SCH ×2 (09:26→17:32)
[2020-05-10] MEDS: INSULIN GLARGINE,HUM.REC.ANLOG 1,000 UNIT/10 ML VIAL SUBCUT SCH ×2 (10:49→21:37)
--- NOTE | 2020-05-10 11:52 | PDOC CRITICAL CARE PROG REPORT ---
General Date:: 05/10/20 ICU Day:: 39 Ventilator Day:: 39 Hospital Day:: 49 Resuscitation Status: Full Code Events in the past 12 to 24 Hours:: This 44-year-old -Citizen Of [place] female presented to [facility] emergency department on 03/21/2020 with complaints of possible presyncope versus syncope in addition to fever, chills, productive cough, dyspnea and exertional dyspnea. She has a history of psychiatric disorders and is known to be a difficult historian. Nonetheless, the patient also was known to have been diagnosed with COVID-19 pneumonia on 03/17/2020 and had subsequently been evaluated in the emergency department. She was apparently discharged home with prescriptions for azithromycin and other medications for symptomatic treatment. She returned with worsening shortness of breath and newly demonstrating supplemental oxygen requirement. 04/09-04/10: Remains intubated. Sedated with Precedex/Versed/fentanyl. On pressure control mode with peak and plateau pressures in the 40s. On insulin infusion for glucose control. On Glucerna + Prosource. KUB obtained showed a gasless abdomen, incongruent with physical exam (possibly due to morbid obesity). Still no BM. 04/11-: Had brisk diuresis with furosemide 40 mg IV single dose (2600 mL urine output), which resulted in a decrease in CVP. However, CVP is now back up to 910. On PRVC mode. ABG this a.m.: 7.46/46/53. Creatinine 0.6. WBC 17.3>11.4. Still no BM. On Versed/fentanyl/Precedex for sedation. Opens eyes to physical stimuli. Tube feeding currently on hold due to high residuals. Of note, even in the absence of tube feeding, the patient is having gastric residuals in the 200s. She does demonstrate spontaneous eye opening. She does not follow commands. 04/13-: Switched to BiVENT/APRV on 04/12/2020 (FiO2 80%, P high 17, T high 9.5 seconds, P low 3, T low 0.5 seconds). ABG this a.m.: 7.42/50/72. Off insulin infusion. Overnight, the patient had an episode of hypoglycemia (40) despite being on trickle tube feeds. Blood cultures (04/13) isolated gram-positive cocci in clusters. Tracheal aspirate (04/13) isolated Staphylococcus aureus. GPC is MSSA sens to rocephin. Still unsure if it's a contaminate. No progress made on ventilator. Changed back to PRVC on 04/16. Still 100% and PEEP 14. 04/18: CXR looks better. Will try weaning today. FiO2 first. 04/19-: Not able to wean yesterday. O2 saturations 95-96%. Will wean PEEP. Down to 10 in effort to lower PEEP for trach which I believe she will need. No weaning on drips yet. Will need trach and PEG. O2 saturations worse, in mid to low 80s on 100%. Talked with Dr. Owen regarding need for trach next week. 04/23: Remains intubated. On rocuronium, Versed and fentanyl infusions. FiO2 95%. PRVC. WBC 13.6. D-dimer 3.14. CRP 59.1. Magnesium 1.5. 04/24: Rocuronium was discontinued yesterday. The patient's ventilator mode was switched to BiVENT. Versed changed to propofol. Still on fentanyl. On BiVENT. [place] sedated. 04/25: Yesterday afternoon, she developed acute hypoxemic decompensation followed by profound hypotension. Clinically, this was highly suspicious for pulmonary embolism. She was started on heparin infusion. SVO2 was found to be 15%. She was started on dobutamine. Ventilator settings were changed. She is still on BiVENT/APRV but now with settings that closely mimic inverse I:E pressure control ventilation. FiO2 100%. P high 20, P low 10, T high 1.5, T low 0.5. 04/26: COVID-19 (HUGH from 04/23) finally returned to negative result. Dobutamine changed to milrinone yesterday. Still on BiVENT/APRV but has been tolerating lower pressures in longer T high times. Had an episode of oxygen desaturation again this morning. Clinically, it appears that she is having increased secretions from the airway, possibly with mucous plugging. Settings were changed subsequent to oxygen desaturation: P high 30, P low 10, T high 1.5, T low 0.5. ABG this a.m.: 7.36/51/69. Diuresing, -869 mL yesterday. proBNP 5880. BM +. 04/27: [place] sedated, synchronous with ventilator. BG this a.m. 7.28/64/78. WBC 25.8 this AM. CRP 200. D-dimer 2.04. 04/28: WBC down to 25.8>14.8 this AM. Not on antibiotics. However, hemoglobin also dropped to 6.6. Repeat hemoglobin 6.2. No obvious blood loss. Blood urine and tracheal aspirate cultures from 04/27 pending. On propofol/Pre cedex/fentanyl. Triglycerides 183. 04/29: Febrile (T-max 24-hour 102.7 Fahrenheit), reportedly refractory to Tylenol and cooling blanket. WBC 28.3. Hemoglobin 6.2>9 after transfusion of 2 units PRBC yesterday. Started on vancomycin overnight due to gram-positive cocci in trach aspirate (04/27), which are now being reported as MRSA. Also, blood cultures (1 of 2) are growing out Staphylococcus species, possibly a contaminant. Still on propofol/Precedex/fentanyl for sedation. Started Versed overnight as well. On BiVENT/APRV: P high 20, P low 3, T high 5.5, T low 0.5. + PSV 15. 04/30: Bun/Cr slightly up. Vancomycin stopped. Linezolid started. Off propofol, may have had propofol infusion syndrome. 05/01: Only small changes in vent made as tolerated. 05/02: Decrease in H/H today, likely anemia of chronic disease. No apparent signs of bleeding. I was able to lower her inspiratory time (PEEP high) slightly without any significant change in SPO2. Her FiO2 was also decreased to 90%. No other significant changes. Plan will be to consult surgery for tracheostomy placement. 05/03/2020: Small incremental changes made on the ventilator today. FiO2 weaned slightly. No other significant changes. 05/04/2020: Patient has had a small bit of progress with weaning her FiO2. We will continue as tolerated and make attempts to wean her bilevel as well today. 05/05/2020: No significant changes over the past 24 hours. Patient has been saturating well with 80 to 90% FiO2. Overall plan today is to continue to wean. Patient will need tracheostomy tube. 05/06: Overall no major change. Has been seen by Dr. Manriquez regarding need for trach 05/05. 05/07: Plan for tracheostomy on 05/08. 05/08: Patient underwent uneventful tracheostomy today. 05/09: Starting to come down on sedation. 05/09: Off versed. May have to increase fentanyl. Review of systems relevant to events:: Pulmonary, neurological. Reason for ICU Addmission:: acute respiratory failure, covid -19 pneumonia, intubated. - Medications: Medications reviewed and adjusted accordingly: Yes Vasopressors:: None Sedation:: Precedex, fentanyl. Physical Exam Vital Signs: Temp Pulse Resp BP Pulse Ox 99.1 F 87 30 H 115/71 94 05/10/20 08:00 05/10/20 10:00 05/10/20 10:00 05/10/20 11:25 05/10/20 11:25 Intake & Output 05/09/20 05/10/20 05/11/20 06:59 06:59 06:59 Intake Total 1789 1523 193 Output Total 4915 4175 490 Balance -7330 -3596 -391 Weight 143.8 kg 143.1 kg Weight/Height Weight 143.1 kg Height 5 ft 3 in General appearance: PRESENT: no acute distress, morbidly obese Head exam: PRESENT: atraumatic, normocephalic Eye exam: PRESENT: conjunctiva pink, EOMI, PERRLA. ABSENT: scleral icterus Ear exam: PRESENT: normal external ear exam Mouth exam: PRESENT: moist, tongue midline Neck exam: PRESENT: tracheostomy Respiratory exam: PRESENT: clear to auscultation reji. ABSENT: rales, rhonchi, wheezes Cardiovascular exam: PRESENT: RRR. ABSENT: diastolic murmur, rubs, systolic murmur GI/Abdominal exam: PRESENT: normal bowel sounds, soft. ABSENT: distended, guarding, mass, organolmegaly, rebound, tenderness Rectal exam: PRESENT: deferred Gentrourinary exam: PRESENT: indwelling catheter Extremities exam: PRESENT: full ROM. ABSENT: calf tenderness, clubbing, pedal edema Musculoskeletal exam: PRESENT: normal inspection Neurological exam: PRESENT: altered, awake, CN II-XII grossly intact, other - Grimaces and tries to fight ventilator at times. Not purposeful, does not follow commands. Psychiatric exam: PRESENT: agitated - At times. Skin exam: PRESENT: dry, intact, warm. ABSENT: cyanosis, rash Tubes/Lines: PRESENT: Endotracheal Tube, Central Line, Nasogastic Tube Laboratory/Radiographs Laboratory Results: 05/09/20 05/09/20 05/09/20 05:00 20:30 20:30 WBC 42.7 H* D RBC 2.46 L Hgb 6.8 L 6.5 L Hct 20.6 L MCV 84 MCH 26.3 L MCHC 31.4 L RDW 23.4 H Plt Count 221 Seg Neutrophils % Not Reportable Sodium 141.0 Potassium 3.4 L Chloride 97 L Carbon Dioxide 33 H Anion Gap 11 BUN 74 H Creatinine 0.80 Est GFR ( Amer) > 60 Glucose 218 H Calcium 9.4 Magnesium Total Bilirubin 1.2 AST 44 H Alkaline Phosphatase 125 Total Protein 5.8 L Albumin 2.9 L Triglycerides Blood Type Antibody Screen 05/09/20 05/10/20 05/10/20 20:30 03:25 06:25 WBC RBC Hgb Hct MCV MCH MCHC RDW Plt Count Seg Neutrophils % Sodium Potassium Chloride Carbon Dioxide Anion Gap BUN Creatinine Est GFR ( Amer) Glucose Calcium Magnesium 1.6 Total Bilirubin AST Alkaline Phosphatase Total Protein Albumin Triglycerides 249 H Blood Type O POSITIVE Antibody Screen NEGATIVE 03/21/20 04/11/20 04/14/20 21:58 03:05 01:59 Creatine Kinase Troponin I < 0.012 NT-Pro-B Natriuret Pep 192 H 184 H 04/24/20 04/25/20 04/26/20 14:18 09:01 03:53 Creatine Kinase Troponin I 0.012 NT-Pro-B Natriuret Pep 7620 H 5880 H 04/30/20 03:50 Creatine Kinase 301 H Troponin I NT-Pro-B Natriuret Pep Impressions: Abdomen Ultrasound 04/10/20 00:00 IMPRESSION: NO EVIDENCE FOR ASCITES. KUB X-Ray 04/29/20 00:00 IMPRESSION: NG tube is present with side port and tip overlying the body of the stomach. Chest X-Ray 05/10/20 00:00 IMPRESSION: Right IJ line tip at the cavoatrial junction. No pneumothorax. All labs, radiographs, diagnostic studies and EKGs were personally reviewed: Yes In addition, reports of radiographic and diagnostic studies were read: Yes Assessment and Plan - Diagnosis (1) Pneumonia due to COVID-19 virus Is this a current diagnosis for this admission?: Yes Plan: She is now negative. (2) Morbid obesity with BMI of 50.0-59.9, adult Is this a current diagnosis for this admission?: Yes Plan: Down slightly at a BMI 55. Likely muscle wasting. (3) Anemia Is this a current diagnosis for this admission?: Yes Plan: Repeat CBC pending. (4) Leukocytosis Qualifiers: Leukocytosis type: unspecified Qualified Code(s): D72.829 - Elevated white blood cell count, unspecified Is this a current diagnosis for this admission?: Yes Plan: Level 43 yesterday. TLC changed. Repeat CBC pending. GNR and MRSA in sputum. On linezolid and now cefpime. Plan Summary: Arrangements for LTAC consideration started. Critical Time Critical Time (minutes): 35 Level of Care: ICU Anticipated discharge: Acute Rehab Anticipated DC Timeframe: Other -: 1. The care of a critical patient is a dynamic process. This note is a product representative synopsis but static in nature. The timeframe for treatments given in order is not necessarily the actual time these treatments may have been done. 2. This patient requires critical care secondary to ongoing requirements for therapy not offered or safe outside the critical care environment. Transfer to a lower level of care will result in altered life or limb morbidity and mortality. 3. Multidisciplinary rounds completed. 4. ABCDE bundle addressed.
[2020-05-10 11:59] LABS: HEMATOCRIT 24.1 % (36.0-47.0); MEAN CORPUSCULAR HEMOGLOBIN 27.2 pg (27.0-33.4); MEAN CORPUSCULAR HGB CONC 32.1 g/dL (32.0-36.0); MEAN CORPUSCULAR VOLUME 85 fl (80-97); PLATELET COUNT 206 10^3/uL (150-450); RED BLOOD COUNT 2.85 10^6/uL (3.72-5.28); RED CELL DISTRIBUTION WIDTH 21.7 % (11.5-14.0)
[2020-05-10] MEDS: LINEZOLID 600 MG/300 ML RTUPB IV SCH ×2 (12:03→21:38)
[2020-05-10 12:12] LABS: ANION GAP 9 (5-19); BLOOD UREA NITROGEN 66 mg/dL (7-20); CALCIUM 9.4 mg/dL (8.4-10.2); CARBON DIOXIDE 36 mmol/L (22-30); CHLORIDE 99 mmol/L (98-107); GLUCOSE 197 mg/dL (75-110)
[2020-05-10] MEDS: HEPARIN SODIUM,PORCINE/D5W 25,000 UNIT/250 ML RTUINJ IV PRN (12:20)
[2020-05-10 12:42] LABS: HEMOGLOBIN 7.7 g/dL (12.0-15.5); WHITE BLOOD COUNT 31.4 10^3/uL (4.0-10.5)
[2020-05-10] MEDS ORDERED: CEFEPIME 1 GM/D5W RTU 1 GM/50 ML RTUPB IV SCH (13:00)
[2020-05-10] MEDS: POTASSIUM CHLORIDE 20 MEQ PACKET PO SCH ×2 (14:48→17:32)
[2020-05-10] MEDS: CEFEPIME 1 GM/D5W RTU 1 GM/50 ML RTUPB IV SCH ×2 (16:04→21:38)
[2020-05-10] MEDS ORDERED: POLYETHYLENE GLYCOL 3350 POWDER 17 GM/1 PACKET NG PRN (18:06)
[2020-05-10] MEDS ORDERED: BISACODYL 10 MG SUPP.RECT PR PRN (18:10)
[2020-05-10] MEDS: BUDESONIDE NEB 0.25 MG/2 ML AMPUL NEB SCH (20:13)
[2020-05-11] MEDS: HEPARIN SODIUM,PORCINE/D5W 25,000 UNIT/250 ML RTUINJ IV PRN ×2 (00:10→23:36)
[2020-05-11] MEDS: INSULIN REG, HUMAN 100 UNIT/ML 3 ML VIAL (PYX) SUBCUT SCH ×5 (00:44→23:39)
[2020-05-11] MEDS: DEXMEDETOMIDINE IN 0.9 % NACL 400 MCG/100 ML RTUPB IV PRN ×15 (00:44→22:55)
[2020-05-11] MEDS: FENTANYL CITRATE/PF 600 MCG/60 ML BAG IV PRN ×12 (01:50→23:36)
[2020-05-11 03:55] LABS: ANION GAP 7 (5-19); BLOOD UREA NITROGEN 65 mg/dL (7-20); CALCIUM 9.6 mg/dL (8.4-10.2); CARBON DIOXIDE 39 mmol/L (22-30); CHLORIDE 98 mmol/L (98-107); GLUCOSE 179 mg/dL (75-110); POTASSIUM 3.6 mmol/L (3.6-5.0)
[2020-05-11 04:00] LABS: HEMATOCRIT 21.2 % (36.0-47.0); MEAN CORPUSCULAR HEMOGLOBIN 27.1 pg (27.0-33.4); MEAN CORPUSCULAR HGB CONC 32.2 g/dL (32.0-36.0); MEAN CORPUSCULAR VOLUME 84 fl (80-97); PLATELET COUNT 199 10^3/uL (150-450); RED BLOOD COUNT 2.51 10^6/uL (3.72-5.28); RED CELL DISTRIBUTION WIDTH 22.3 % (11.5-14.0); WHITE BLOOD COUNT 24.2 10^3/uL (4.0-10.5)
[2020-05-11 04:05] LABS: PARTIAL THROMBOPLASTIN TIME 101.4 SEC (23.5-35.8)
[2020-05-11 04:06] LABS: D-DIMER 1.74 ug/mL (0.00-0.50)
[2020-05-11 04:15] LABS: ABSOLUTE LYMPHOCYTES# (MANUAL) 1.7 10^3/uL (0.5-4.7); ABSOLUTE MONOCYTES # (MANUAL) 0.7 10^3/uL (0.1-1.4); BASOPHILS % (MANUAL) 0 % (0-2); EOSINOPHILS % (MANUAL) 0 % (0-6); LYMPHOCYTES % (MANUAL) 7 % (13-45); MONOCYTES % (MANUAL) 3 % (3-13); SEGMENTED NEUTROPHILS % (MAN) 90 % (42-78); TOTAL CELLS COUNTED 100
[2020-05-11 04:16] LABS: ANISOCYTOSIS 3+; PLATELET COMMENT ADEQUATE; POLYCHROMASIA SLIGHT
[2020-05-11 04:17] LABS: HEMOGLOBIN 6.8 g/dL (12.0-15.5)
[2020-05-11] MEDS: LABETALOL HCL INJ 20 MG/4 ML DISP.SYRIN IV PRN ×2 (05:31→16:09)
[2020-05-11] MEDS ORDERED: MIDAZOLAM 2 MG/2 ML INJ ONE (05:40)
[2020-05-11] MEDS ORDERED: MIDAZOLAM 2 MG/2 ML INJ IV ONE (05:41)
[2020-05-11] MEDS ORDERED: MIDAZOLAM HCL 50 MG/100 ML RTUINJ IV PRN (05:52)
[2020-05-11] MEDS ORDERED: PROPOFOL INJ 200 MG/20 ML VIAL IV ONE ×2 (06:13→06:15)
[2020-05-11] MEDS: ACETAMINOPHEN 325 MG TABLET PO PRN ×2 (07:13→14:07)
[2020-05-11] MEDS: BUDESONIDE NEB 0.25 MG/2 ML AMPUL NEB SCH ×2 (08:53→20:06)
[2020-05-11] MEDS: CEFEPIME 1 GM/D5W RTU 1 GM/50 ML RTUPB IV SCH ×2 (09:09→21:39)
[2020-05-11] MEDS: POTASSIUM CHLORIDE 20 MEQ PACKET PO SCH ×2 (09:10→18:15)
[2020-05-11] MEDS: FUROSEMIDE INJ/PF 40 MG/4 ML SDV IV SCH ×2 (09:11→21:38)
[2020-05-11] MEDS: FAMOTIDINE INJ/PF 20 MG/2 ML SDV IV SCH ×2 (09:11→21:38)
[2020-05-11] MEDS: METHYLPREDNISOLONE INJ 40 MG/1 ML SDV IV SCH (09:11)
[2020-05-11] MEDS: AMINO AC/PROTEIN HYDR/WHEY PRO 11 GM/45 ML PKT NG SCH ×3 (09:12→18:15)
[2020-05-11] MEDS: SENNOSIDES/DOCUSATE 8.6-50 MG 1 EACH TABLET NG SCH ×2 (09:12→18:14)
--- NOTE | 2020-05-11 09:34 | PDOC CRITICAL CARE PROG REPORT ---
General Date:: 05/11/20 ICU Day:: 40 Ventilator Day:: 40 Hospital Day:: 50 Resuscitation Status: Full Code Events in the past 12 to 24 Hours:: This 44-year-old -[place] female presented [facility] 03/21/2020 with complaints of possible presyncope versus syncope in addition to fever, chills, productive cough, dyspnea and exertional dyspnea. She has a history of psychiatric disorders and is known to be a difficult historian. Nonetheless, the patient also was known to have been diagnosed with COVID-19 pneumonia on 03/17/2020 and had subsequently been evaluated in the emergency department. She was apparently discharged home with prescriptions for azithromycin and other medications for symptomatic treatment. She returned with worsening shortness of breath and newly demonstrating supplemental oxygen requirement. 04/09-04/10: Remains intubated. Sedated with Precedex/Versed/fentanyl. On pressure control mode with peak and plateau pressures in the 40s. On insulin infusion for glucose control. On Glucerna + Prosource. KUB obtained showed a gasless abdomen, incongruent with physical exam (possibly due to morbid obesity). Still no BM. 04/11-: Had brisk diuresis with furosemide 40 mg IV single dose (2600 mL urine output), which resulted in a decrease in CVP. However, CVP is now back up to 910. On PRVC mode. ABG this a.m.: 7.46/46/53. Creatinine 0.6. WBC 17.3>11.4. Still no BM. On Versed/fentanyl/Precedex for sedation. Opens eyes to physical stimuli. Tube feeding currently on hold due to high residuals. Of note, even in the absence of tube feeding, the patient is having gastric residuals in the 200s. She does demonstrate spontaneous eye opening. She does not follow commands. 04/13-: Switched to BiVENT/APRV on 04/12/2020 (FiO2 80%, P high 17, T high 9.5 seconds, P low 3, T low 0.5 seconds). ABG this a.m.: 7.42/50/72. Off insulin infusion. Overnight, the patient had an episode of hypoglycemia (40) despite being on trickle tube feeds. Blood cultures (04/13) isolated gram-positive cocci in clusters. Tracheal aspirate (04/13) isolated Staphylococcus aureus. GPC is MSSA sens to rocephin. Still unsure if it's a contaminate. No progress made on ventilator. Changed back to PRVC on 04/16. Still 100% and PEEP 14. 04/18: CXR looks better. Will try weaning today. FiO2 first. 04/19-: Not able to wean yesterday. O2 saturations 95-96%. Will wean PEEP. Down to 10 in effort to lower PEEP for trach which I believe she will need. No weaning on drips yet. Will need trach and PEG. O2 saturations worse, in mid to low 80s on 100%. Talked with Dr. Owen regarding need for trach next week. 04/23: Remains intubated. On rocuronium, Versed and fentanyl infusions. FiO2 95%. PRVC. WBC 13.6. D-dimer 3.14. CRP 59.1. Magnesium 1.5. 04/24: Rocuronium was discontinued yesterday. The patient's ventilator mode was switched to BiVENT. Versed changed to propofol. Still on fentanyl. On BiVENT. [place] sedated. 04/25: Yesterday afternoon, she developed acute hypoxemic decompensation followed by profound hypotension. Clinically, this was highly suspicious for pulmonary embolism. She was started on heparin infusion. SVO2 was found to be 15%. She was started on dobutamine. Ventilator settings were changed. She is still on BiVENT/APRV but now with settings that closely mimic inverse I:E pressure control ventilation. FiO2 100%. P high 20, P low 10, T high 1.5, T low 0.5. 04/26: COVID-19 ([facility] from 04/23) finally returned to negative result. Dobutamine changed to milrinone yesterday. Still on BiVENT/APRV but has been tolerating lower pressures in longer T high times. Had an episode of oxygen desaturation again this morning. Clinically, it appears that she is having increased secretions from the airway, possibly with mucous plugging. Settings were changed subsequent to oxygen desaturation: P high 30, P low 10, T high 1.5, T low 0.5. ABG this a.m.: 7.36/51/69. Diuresing, -869 mL yesterday. proBNP 5880. BM +. 04/27: [place] sedated, synchronous with ventilator. BG this a.m. 7.28/64/78. WBC 25.8 this AM. CRP 200. D-dimer 2.04. 04/28: WBC down to 25.8>14.8 this AM. Not on antibiotics. However, hemoglobin also dropped to 6.6. Repeat hemoglobin 6.2. No obvious blood loss. Blood urine and tracheal aspirate cultures from 04/27 pending. On propofol/Pre cedex/fentanyl. Triglycerides 183. 04/29: Febrile (T-max 24-hour 102.7 Fahrenheit), reportedly refractory to Tylenol and cooling blanket. WBC 28.3. Hemoglobin 6.2>9 after transfusion of 2 units PRBC yesterday. Started on vancomycin overnight due to gram-positive cocci in trach aspirate (04/27), which are now being reported as MRSA. Also, blood cultures (1 of 2) are growing out Staphylococcus species, possibly a contaminant. Still on propofol/Precedex/fentanyl for sedation. Started Versed overnight as well. On BiVENT/APRV: P high 20, P low 3, T high 5.5, T low 0.5. + PSV 15. 04/30: Bun/Cr slightly up. Vancomycin stopped. Linezolid started. Off propofol, may have had propofol infusion syndrome. 05/01: Only small changes in vent made as tolerated. 05/02: Decrease in H/H today, likely anemia of chronic disease. No apparent signs of bleeding. I was able to lower her inspiratory time (PEEP high) slightly without any significant change in SPO2. Her FiO2 was also decreased to 90%. No other significant changes. Plan will be to consult surgery for tracheostomy placement. 05/03/2020: Small incremental changes made on the ventilator today. FiO2 weaned slightly. No other significant changes. 05/04/2020: Patient has had a small bit of progress with weaning her FiO2. We will continue as tolerated and make attempts to wean her bilevel as well today. 05/05/2020: No significant changes over the past 24 hours. Patient has been saturating well with 80 to 90% FiO2. Overall plan today is to continue to wean. Patient will need tracheostomy tube. 05/06: Overall no major change. Has been seen by Dr. Manriquez regarding need for trach 05/05. 05/07: Plan for tracheostomy on 05/08. 05/08: Patient underwent uneventful tracheostomy today. 05/09: Starting to come down on sedation. 05/10: Off versed. May have to increase fentanyl. 05/11: Not able to make changes to vent. Not awakening off versed. Review of systems relevant to events:: Pulmonary, neurological. Reason for ICU Addmission:: acute respiratory failure, covid -19 pneumonia, Has trach, on vent. - Medications: Medications reviewed and adjusted accordingly: Yes Vasopressors:: None Sedation:: Precedex, fentanyl. Physical Exam Vital Signs: Temp Pulse Resp BP Pulse Ox 101.8 F H 111 H 56 H 146/82 H 92 05/11/20 08:00 05/11/20 08:04 05/11/20 08:00 05/11/20 08:04 05/11/20 08:04 Intake & Output 05/10/20 05/11/20 05/12/20 06:59 06:59 06:59 Intake Total 1523 2964 450 Output Total 4175 3750 275 Balance -2652 -786 175 Weight 143.1 kg 146.1 kg Weight/Height Weight 146.1 kg Height 5 ft 3 in General appearance: PRESENT: no acute distress, morbidly obese Head exam: PRESENT: atraumatic, normocephalic Eye exam: PRESENT: conjunctiva pink, EOMI, PERRLA. ABSENT: scleral icterus Ear exam: PRESENT: normal external ear exam Mouth exam: PRESENT: moist, tongue midline Neck exam: PRESENT: tracheostomy. ABSENT: carotid bruit, JVD, lymphadenopathy, thyromegaly Respiratory exam: PRESENT: clear to auscultation reji. ABSENT: rales, rhonchi, wheezes Cardiovascular exam: PRESENT: RRR, tachycardia. ABSENT: diastolic murmur, rubs, systolic murmur GI/Abdominal exam: PRESENT: normal bowel sounds, soft. ABSENT: distended, guarding, mass, organolmegaly, rebound, tenderness Rectal exam: PRESENT: deferred Gentrourinary exam: PRESENT: indwelling catheter Extremities exam: PRESENT: full ROM. ABSENT: calf tenderness, clubbing, pedal edema Musculoskeletal exam: PRESENT: normal inspection Neurological exam: PRESENT: altered, other Skin exam: PRESENT: dry, intact, warm. ABSENT: cyanosis, rash Tubes/Lines: PRESENT: Central Line, Nasogastic Tube, Other - Trach Laboratory/Radiographs Laboratory Results: 05/11/20 03:20 05/11/20 03:20 05/10/20 05/10/20 05/10/20 03:25 11:20 11:20 WBC 31.4 H* RBC 2.85 L Hgb 7.7 L Hct 24.1 L MCV 85 MCH 27.2 MCHC 32.1 RDW 21.7 H Plt Count 206 Seg Neutrophils % Sodium 143.6 Potassium 3.0 L* Chloride 99 Carbon Dioxide 36 H Anion Gap 9 BUN 66 H Creatinine 0.80 Est GFR ( Amer) > 60 Glucose 197 H Calcium 9.4 C-Reactive Protein Blood Type O POSITIVE Antibody Screen NEGATIVE 05/11/20 05/11/20 03:20 03:20 WBC 24.2 H RBC 2.51 L Hgb 6.8 L Hct 21.2 L MCV 84 MCH 27.1 MCHC 32.2 RDW 22.3 H Plt Count 199 Seg Neutrophils % Not Reportable Sodium 144.0 Potassium 3.6 Chloride 98 Carbon Dioxide 39 H Anion Gap 7 BUN 65 H Creatinine 0.71 Est GFR ( Amer) > 60 Glucose 179 H Calcium 9.6 C-Reactive Protein 255.0 H Blood Type Antibody Screen 05/09/20 20:30 Blood Blood Culture (PCR) - Final Staphylococcus Aureus 05/09/20 17:14 Tracheal Aspirate Gram Stain - Final 03/21/20 04/11/20 04/14/20 21:58 03:05 01:59 Creatine Kinase Troponin I < 0.012 NT-Pro-B Natriuret Pep 192 H 184 H 04/24/20 04/25/20 04/26/20 14:18 09:01 03:53 Creatine Kinase Troponin I 0.012 NT-Pro-B Natriuret Pep 7620 H 5880 H 04/30/20 03:50 Creatine Kinase 301 H Troponin I NT-Pro-B Natriuret Pep Impressions: Abdomen Ultrasound 04/10/20 00:00 IMPRESSION: NO EVIDENCE FOR ASCITES. KUB X-Ray 04/29/20 00:00 IMPRESSION: NG tube is present with side port and tip overlying the body of the stomach. Chest X-Ray 05/10/20 00:00 IMPRESSION: Right IJ line tip at the cavoatrial junction. No pneumothorax. All labs, radiographs, diagnostic studies and EKGs were personally reviewed: Yes In addition, reports of radiographic and diagnostic studies were read: Yes Assessment and Plan - Diagnosis (1) Pneumonia due to COVID-19 virus Is this a current diagnosis for this admission?: Yes Plan: Even though she has tested negative, there is enough lung pathology requiring 100% and high PEEP. Try to wean as much as possible. (2) Morbid obesity with BMI of 50.0-59.9, adult Is this a current diagnosis for this admission?: Yes Plan: Largely unchanged. Her weight loss is probably mostly muscle. (3) Anemia Is this a current diagnosis for this admission?: Yes Plan: Hgb only 6.8. Likely inflammatory. CRP up to 255 from 78. No obvious VAP (4) Leukocytosis Qualifiers: Leukocytosis type: unspecified Qualified Code(s): D72.829 - Elevated white blood cell count, unspecified Is this a current diagnosis for this admission?: Yes Plan: WBC down to 24. Plan Summary: Recheck Cdif as there are soft signs of inflammation. Critical Time Critical Time (minutes): 35 Level of Care: ICU Anticipated discharge: SNF Anticipated DC Timeframe: Other -: 1. The care of a critical patient is a dynamic process. This note is a benefits representative synopsis but static in nature. The timeframe for treatments given in order is not necessarily the actual time these treatments may have been done. 2. This patient requires critical care secondary to ongoing requirements for therapy not offered or safe outside the critical care environment. Transfer to a lower level of care will result in altered life or limb morbidity and mortality. 3. Multidisciplinary rounds completed. 4. ABCDE bundle addressed.
[2020-05-11] MEDS: LINEZOLID 600 MG/300 ML RTUPB IV SCH ×2 (10:04→21:38)
[2020-05-11] MEDS: INSULIN GLARGINE,HUM.REC.ANLOG 1,000 UNIT/10 ML VIAL SUBCUT SCH ×2 (10:09→21:37)
[2020-05-11 11:33] LABS: HEMATOCRIT 26.1 % (36.0-47.0); HEMOGLOBIN 8.6 g/dL (12.0-15.5); MEAN CORPUSCULAR HEMOGLOBIN 28.1 pg (27.0-33.4); MEAN CORPUSCULAR HGB CONC 33.1 g/dL (32.0-36.0); MEAN CORPUSCULAR VOLUME 85 fl (80-97); PLATELET COUNT 234 10^3/uL (150-450); RED BLOOD COUNT 3.07 10^6/uL (3.72-5.28); RED CELL DISTRIBUTION WIDTH 20.9 % (11.5-14.0)
[2020-05-11 11:44] LABS: ANION GAP 5 (5-19); BLOOD UREA NITROGEN 51 mg/dL (7-20); CALCIUM 8.1 mg/dL (8.4-10.2); CARBON DIOXIDE 32 mmol/L (22-30); CHLORIDE 104 mmol/L (98-107); GLUCOSE 227 mg/dL (75-110); POTASSIUM 3.5 mmol/L (3.6-5.0)
[2020-05-11 11:59] LABS: WHITE BLOOD COUNT 32.3 10^3/uL (4.0-10.5)
[2020-05-11 12:01] LABS: C DIFFICILE GDH NEGATIVE (NEGATIVE)
[2020-05-11] MEDS: HEPARIN SOD (PORCINE) 1,000 UNIT/ML 10 ML VIAL IV PRN (18:57)
[2020-05-12] MEDS ORDERED: ZIPRASIDONE MESYLATE INJ/PF 20 MG SDV IM ONE (00:24)
[2020-05-12] MEDS: DEXMEDETOMIDINE IN 0.9 % NACL 400 MCG/100 ML RTUPB IV PRN ×14 (00:32→23:10)
[2020-05-12] MEDS: FENTANYL CITRATE/PF 600 MCG/60 ML BAG IV PRN ×11 (01:30→20:52)
[2020-05-12] MEDS: INSULIN REG, HUMAN 100 UNIT/ML 3 ML VIAL (PYX) SUBCUT SCH ×6 (02:44→21:54)
[2020-05-12] MEDS: HYDROCOD/ACETAMIN 7.5-325 MG/15 ML ORAL SOLN UDCUP PO SCH ×4 (06:29→23:21)
[2020-05-12 07:17] LABS: ARTERIAL BLOOD BASE EXCESS 8.6 mmol/L; ARTERIAL BLOOD FIO2 100%; ARTERIAL BLOOD H2CO3 1.53 mmol/L (1.05-1.35); ARTERIAL BLOOD HCO3 33.8 mmol/L (20-24); ARTERIAL BLOOD O2 SATURATION 97.7 % (94-98); ARTERIAL BLOOD PCO2 50.8 mmHg (35-45); ARTERIAL BLOOD PH 7.44 (7.35-7.45); ARTERIAL BLOOD PO2 100.5 mmHg (80-100); ARTERIAL BLOOD TOTAL CO2 35.4 mmol/L (21-25)
[2020-05-12 07:29] LABS: HEMATOCRIT 26.5 % (36.0-47.0); HEMOGLOBIN 8.7 g/dL (12.0-15.5); MEAN CORPUSCULAR HEMOGLOBIN 28.2 pg (27.0-33.4); MEAN CORPUSCULAR HGB CONC 32.7 g/dL (32.0-36.0); MEAN CORPUSCULAR VOLUME 86 fl (80-97); PLATELET COUNT 214 10^3/uL (150-450); RED BLOOD COUNT 3.08 10^6/uL (3.72-5.28); RED CELL DISTRIBUTION WIDTH 21.4 % (11.5-14.0); WHITE BLOOD COUNT 24.5 10^3/uL (4.0-10.5)
--- NOTE | 2020-05-12 07:50 | EKG REPORT ---
SEVERITY:- ABNORMAL ECG - SINUS TACHYCARDIA BI ATRIAL ABNORMALITY : Confirmed by: Tang Davenport MD 12-May-2020 07:50:01
[2020-05-12 07:52] LABS: ABSOLUTE LYMPHOCYTES# (MANUAL) 2.9 10^3/uL (0.5-4.7); ABSOLUTE MONOCYTES # (MANUAL) 0.5 10^3/uL (0.1-1.4); BASOPHILS % (MANUAL) 0 % (0-2); EOSINOPHILS % (MANUAL) 1 % (0-6); LYMPHOCYTES % (MANUAL) 11 % (13-45); MONOCYTES % (MANUAL) 2 % (3-13); NUCLEATED RED BLOOD CELLS 2 /100 WBC (0); SEGMENTED NEUTROPHILS % (MAN) 85 % (42-78); TOTAL CELLS COUNTED 100
[2020-05-12 07:54] LABS: ANISOCYTOSIS 3+; PLATELET COMMENT ADEQUATE; PLATELET LARGE PRESENT; POLYCHROMASIA 1+; TEAR DROP CELLS SLIGHT
[2020-05-12] MEDS: ALBUTEROL SULFATE 0.083% NEB 2.5 MG/3 ML AMPUL NEB PRN ×2 (08:04→19:15)
[2020-05-12] MEDS: BUDESONIDE NEB 0.25 MG/2 ML AMPUL NEB SCH ×2 (08:04→19:15)
[2020-05-12 08:44] LABS: ANION GAP 5 (5-19); BLOOD UREA NITROGEN 53 mg/dL (7-20); CALCIUM 9.2 mg/dL (8.4-10.2); CARBON DIOXIDE 38 mmol/L (22-30); CHLORIDE 98 mmol/L (98-107); GLUCOSE 169 mg/dL (75-110); PHOSPHORUS 4.3 mg/dL (2.5-4.5); POTASSIUM 3.4 mmol/L (3.6-5.0)
[2020-05-12] MEDS: QUETIAPINE FUMARATE 25 MG TABLET NG SCH ×4 (09:51→23:21)
[2020-05-12] MEDS: FAMOTIDINE INJ/PF 20 MG/2 ML SDV IV SCH ×2 (09:57→21:36)
[2020-05-12] MEDS: METHYLPREDNISOLONE INJ 40 MG/1 ML SDV IV SCH (09:57)
[2020-05-12] MEDS: POTASSIUM CHLORIDE 20 MEQ PACKET PO SCH ×2 (09:58→18:21)
[2020-05-12] MEDS: AMINO AC/PROTEIN HYDR/WHEY PRO 11 GM/45 ML PKT NG SCH ×3 (09:58→21:35)
[2020-05-12] MEDS: INSULIN GLARGINE,HUM.REC.ANLOG 1,000 UNIT/10 ML VIAL SUBCUT SCH ×2 (09:58→21:39)
[2020-05-12] MEDS: CEFEPIME 1 GM/D5W RTU 1 GM/50 ML RTUPB IV SCH ×2 (09:58→21:32)
[2020-05-12] MEDS: LINEZOLID 600 MG/300 ML RTUPB IV SCH ×2 (09:58→21:54)
[2020-05-12] MEDS: FUROSEMIDE INJ/PF 40 MG/4 ML SDV IV SCH ×2 (09:58→21:36)
--- NOTE | 2020-05-12 13:49 | PDOC CRITICAL CARE PROG REPORT ---
General Date:: 05/12/20 ICU Day:: 42 Ventilator Day:: 42 Hospital Day:: 52 Resuscitation Status: Full Code Events in the past 12 to 24 Hours:: This 44-year-old -[place] female presented to [facility] emergency department on 03/21/2020 with complaints of possible presyncope versus syncope in addition to fever, chills, productive cough, dyspnea and exertional dyspnea. She has a history of psychiatric disorders and is known to be a difficult historian. Nonetheless, the patient also was known to have been diagnosed with COVID-19 pneumonia on 03/17/2020 and had subsequently been evaluated in the emergency department. She was apparently discharged home with prescriptions for azithromycin and other medications for symptomatic treatment. She returned with worsening shortness of breath and newly demonstrating supplemental oxygen requirement. 04/09-04/10: Remains intubated. Sedated with Precedex/Versed/fentanyl. On pressure control mode with peak and plateau pressures in the 40s. On insulin infusion for glucose control. On Glucerna + Prosource. KUB obtained showed a gasless abdomen, incongruent with physical exam (possibly due to morbid obesity). Still no BM. 04/11-: Had brisk diuresis with furosemide 40 mg IV single dose (2600 mL urine output), which resulted in a decrease in CVP. However, CVP is now back up to 910. On PRVC mode. ABG this a.m.: 7.46/46/53. Creatinine 0.6. WBC 17.3>11.4. Still no BM. On Versed/fentanyl/Precedex for sedation. Opens eyes to physical stimuli. Tube feeding currently on hold due to high residuals. Of note, even in the absence of tube feeding, the patient is having gastric residuals in the 200s. She does demonstrate spontaneous eye opening. She does not follow commands. 04/13-: Switched to BiVENT/APRV on 04/12/2020 (FiO2 80%, P high 17, T high 9.5 seconds, P low 3, T low 0.5 seconds). ABG this a.m.: 7.42/50/72. Off insulin infusion. Overnight, the patient had an episode of hypoglycemia (40) despite being on trickle tube feeds. Blood cultures (04/13) isolated gram-positive cocci in clusters. Tracheal aspirate (04/13) isolated Staphylococcus aureus. GPC is MSSA sens to rocephin. Still unsure if it's a contaminate. No progress made on ventilator. Changed back to PRVC on 04/16. Still 100% and PEEP 14. 04/18: CXR looks better. Will try weaning today. FiO2 first. 04/19-: Not able to wean yesterday. O2 saturations 95-96%. Will wean PEEP. Down to 10 in effort to lower PEEP for trach which I believe she will need. No weaning on drips yet. Will need trach and PEG. O2 saturations worse, in mid to low 80s on 100%. Talked with Dr. Owen regarding need for trach next week. 04/23: Remains intubated. On rocuronium, Versed and fentanyl infusions. FiO2 95%. PRVC. WBC 13.6. D-dimer 3.14. CRP 59.1. Magnesium 1.5. 04/24: Rocuronium was discontinued yesterday. The patient's ventilator mode was switched to BiVENT. Versed changed to propofol. Still on fentanyl. On BiVENT. [place] sedated. 04/25: Yesterday afternoon, she developed acute hypoxemic decompensation followed by profound hypotension. Clinically, this was highly suspicious for pulmonary embolism. She was started on heparin infusion. SVO2 was found to be 15%. She was started on dobutamine. Ventilator settings were changed. She is still on BiVENT/APRV but now with settings that closely mimic inverse I:E pressure control ventilation. FiO2 100%. P high 20, P low 10, T high 1.5, T low 0.5. 04/26: COVID-19 (HUGH from 04/23) finally returned to negative result. Dobutamine changed to milrinone yesterday. Still on BiVENT/APRV but has been tolerating lower pressures in longer T high times. Had an episode of oxygen desaturation again this morning. Clinically, it appears that she is having increased secretions from the airway, possibly with mucous plugging. Settings were changed subsequent to oxygen desaturation: P high 30, P low 10, T high 1.5, T low 0.5. ABG this a.m.: 7.36/51/69. Diuresing, -869 mL yesterday. proBNP 5880. BM +. 04/27: [place] sedated, synchronous with ventilator. BG this a.m. 7.28/64/78. WBC 25.8 this AM. CRP 200. D-dimer 2.04. 04/28: WBC down to 25.8>14.8 this AM. Not on antibiotics. However, hemoglobin also dropped to 6.6. Repeat hemoglobin 6.2. No obvious blood loss. Blood urine and tracheal aspirate cultures from 04/27 pending. On propofol/Pre cedex/fentanyl. Triglycerides 183. 04/29: Febrile (T-max 24-hour 102.7 Fahrenheit), reportedly refractory to Tylenol and cooling blanket. WBC 28.3. Hemoglobin 6.2>9 after transfusion of 2 units PRBC yesterday. Started on vancomycin overnight due to gram-positive cocci in trach aspirate (04/27), which are now being reported as MRSA. Also, blood cultures (1 of 2) are growing out Staphylococcus species, possibly a contaminant. Still on propofol/Precedex/fentanyl for sedation. Started Versed overnight as well. On BiVENT/APRV: P high 20, P low 3, T high 5.5, T low 0.5. + PSV 15. 04/30: Bun/Cr slightly up. Vancomycin stopped. Linezolid started. Off propofol, may have had propofol infusion syndrome. 05/01: Only small changes in vent made as tolerated. 05/02: Decrease in H/H today, likely anemia of chronic disease. No apparent signs of bleeding. I was able to lower her inspiratory time (PEEP high) slightly without any significant change in SPO2. Her FiO2 was also decreased to 90%. No other significant changes. Plan will be to consult surgery for tracheostomy placement. 05/03/2020: Small incremental changes made on the ventilator today. FiO2 weaned slightly. No other significant changes. 05/04/2020: Patient has had a small bit of progress with weaning her FiO2. We will continue as tolerated and make attempts to wean her bilevel as well today. 05/05/2020: No significant changes over the past 24 hours. Patient has been saturating well with 80 to 90% FiO2. Overall plan today is to continue to wean. Patient will need tracheostomy tube. 05/06: Overall no major change. Has been seen by Dr. Manriquez regarding need for trach 05/05. 05/07: Plan for tracheostomy on 05/08. 05/08: Patient underwent uneventful tracheostomy today. 05/09: Starting to come down on sedation. 05/10: Off versed. May have to increase fentanyl. 05/11: Not able to make changes to vent. Not awakening off versed. 05/12: Seems to be calmer with addition of seroquel, although to early to tell. Review of systems relevant to events:: Neurological, pulmonary. Reason for ICU Addmission:: acute respiratory failure, covid -19 pneumonia, Has trach, on vent. - Medications: Medications reviewed and adjusted accordingly: Yes Vasopressors:: None. Sedation:: Precedex, fentanyl. Physical Exam Vital Signs: Temp Pulse Resp BP Pulse Ox 100.8 F H 102 H 38 H 148/102 H 92 05/12/20 12:00 05/12/20 12:00 05/12/20 12:00 05/12/20 12:00 05/12/20 12:00 Intake & Output 05/11/20 05/12/20 05/13/20 06:59 06:59 06:59 Intake Total 2964 3245 396 Output Total 3750 4905 1300 Balance -786 -1660 -904 Weight 146.1 kg 139 kg Weight/Height Weight 139 kg Height 5 ft 3 in General appearance: PRESENT: no acute distress, morbidly obese Head exam: PRESENT: atraumatic, normocephalic Eye exam: PRESENT: conjunctiva pink, EOMI, PERRLA. ABSENT: scleral icterus Ear exam: PRESENT: normal external ear exam Mouth exam: PRESENT: moist, tongue midline Neck exam: PRESENT: tracheostomy Respiratory exam: PRESENT: clear to auscultation reji. ABSENT: rales, rhonchi, wheezes Cardiovascular exam: PRESENT: RRR, tachycardia. ABSENT: diastolic murmur, rubs, systolic murmur GI/Abdominal exam: PRESENT: normal bowel sounds, soft. ABSENT: distended, guarding, mass, organolmegaly, rebound, tenderness Rectal exam: PRESENT: deferred Gentrourinary exam: PRESENT: indwelling catheter Extremities exam: PRESENT: full ROM. ABSENT: calf tenderness, clubbing, pedal e zofia Musculoskeletal exam: PRESENT: normal inspection Neurological exam: PRESENT: other - She looks straight ahead. At times seems to focus. No startle reflex. Skin exam: PRESENT: dry, intact, warm. ABSENT: cyanosis, rash Tubes/Lines: PRESENT: Central Line, Nasogastic Tube, Other - Trach Laboratory/Radiographs Laboratory Results: 05/12/20 04:35 05/12/20 08:07 05/12/20 05/12/20 05/12/20 01:35 04:35 04:35 WBC 24.5 H RBC 3.08 L Hgb 8.7 L Hct 26.5 L MCV 86 MCH 28.2 MCHC 32.7 RDW 21.4 H Plt Count 214 Seg Neutrophils % Not Reportable Carbonic Acid 1.53 H HCO3/H2CO3 Ratio 22:1 ABG pH 7.44 ABG pCO2 50.8 H ABG pO2 100.5 H ABG HCO3 33.8 H ABG O2 Saturation 97.7 ABG Base Excess 8.6 FiO2 100% Sodium Cancelled Potassium Cancelled Chloride Cancelled Carbon Dioxide Cancelled Anion Gap Cancelled BUN Cancelled Creatinine Cancelled Est GFR ( Amer) Cancelled Est GFR (Non-Af Amer) Cancelled Glucose Cancelled Calcium Cancelled Phosphorus Cancelled Magnesium Cancelled 05/12/20 08:07 WBC RBC Hgb Hct MCV MCH MCHC RDW Plt Count Seg Neutrophils % Carbonic Acid HCO3/H2CO3 Ratio ABG pH ABG pCO2 ABG pO2 ABG HCO3 ABG O2 Saturation ABG Base Excess FiO2 Sodium 140.9 Potassium 3.4 L Chloride 98 Carbon Dioxide 38 H Anion Gap 5 BUN 53 H Creatinine 0.74 Est GFR ( Amer) > 60 Est GFR (Non-Af Amer) Glucose 169 H Calcium 9.2 Phosphorus 4.3 Magnesium 1.6 05/09/20 20:30 Blood Blood Culture (PCR) - Final Staphylococcus Aureus 05/09/20 20:30 Blood Blood Culture - Final Mrsa (Meth Resis Staph Aureus) 05/09/20 23:25 Blood Blood Culture - Final Mrsa (Meth Resis Staph Aureus) 05/09/20 17:14 Tracheal Aspirate Gram Stain - Final 05/09/20 17:14 Tracheal Aspirate Sputum Culture - Final Enterobacter Cloacae Staphylococcus Aureus Normal Chloe Absent 03/21/20 04/11/20 04/14/20 21:58 03:05 01:59 Creatine Kinase Troponin I < 0.012 NT-Pro-B Natriuret Pep 192 H 184 H 04/24/20 04/25/20 04/26/20 14:18 09:01 03:53 Creatine Kinase Troponin I 0.012 NT-Pro-B Natriuret Pep 7620 H 5880 H 04/30/20 03:50 Creatine Kinase 301 H Troponin I NT-Pro-B Natriuret Pep Impressions: Abdomen Ultrasound 04/10/20 00:00 IMPRESSION: NO EVIDENCE FOR ASCITES. KUB X-Ray 04/29/20 00:00 IMPRESSION: NG tube is present with side port and tip overlying the body of the stomach. Chest X-Ray 05/10/20 00:00 IMPRESSION: Right IJ line tip at the cavoatrial junction. No pneumothorax. All labs, radiographs, diagnostic studies and EKGs were personally reviewed: Yes In addition, reports of radiographic and diagnostic studies were read: Yes Assessment and Plan - Diagnosis (1) Pneumonia due to COVID-19 virus Is this a current diagnosis for this admission?: Yes Plan: Negative but still showing the effects in her lungs. FIO2 brought down slightly to 95% (2) Morbid obesity with BMI of 50.0-59.9, adult Is this a current diagnosis for this admission?: Yes Plan: No change (3) Anemia Is this a current diagnosis for this admission?: Yes Plan: Stable at 8.7 (4) Leukocytosis Qualifiers: Leukocytosis type: unspecified Qualified Code(s): D72.829 - Elevated white blood cell count, unspecified Is this a current diagnosis for this admission?: Yes Plan: Level of WBC down to 24K. Much improved. Plan Summary: Wean vent as tolerated. She is showing signs of anoxic injury to the brain. MRSA in sputum treat with linezolid. Critical Time Critical Time (minutes): 35 Level of Care: ICU Anticipated discharge: SNF Anticipated DC Timeframe: Other -: 1. The care of a critical patient is a dynamic process. This note is a mill representative synopsis but static in nature. The timeframe for treatments given in order is not necessarily the actual time these treatments may have been done. 2. This patient requires critical care secondary to ongoing requirements for therapy not offered or safe outside the critical care environment. Transfer to a lower level of care will result in altered life or limb morbidity and mortality. 3. Multidisciplinary rounds completed. 4. ABCDE bundle addressed.
[2020-05-12] MEDS: HEPARIN SODIUM,PORCINE/D5W 25,000 UNIT/250 ML RTUINJ IV PRN (18:22)
[2020-05-12] MEDS: MELATONIN 5 MG TABLET NG SCH (21:36)
[2020-05-12] MEDS: MAGNESIUM SULFATE/D5W 1 GM/100 ML RTUPB IV SCH ×2 (23:14→23:21)
[2020-05-13] MEDS: DEXMEDETOMIDINE IN 0.9 % NACL 400 MCG/100 ML RTUPB IV PRN ×12 (00:21→23:36)
[2020-05-13] MEDS ORDERED: LORAZEPAM INJ 2 MG/1 ML VIAL IV ONE (00:30)
[2020-05-13] MEDS: MAGNESIUM SULFATE/D5W 1 GM/100 ML RTUPB IV SCH (00:53)
[2020-05-13] MEDS: INSULIN REG, HUMAN 100 UNIT/ML 3 ML VIAL (PYX) SUBCUT SCH ×6 (02:36→23:15)
[2020-05-13] MEDS: LORAZEPAM 1 MG TABLET NG SCH ×3 (05:23→17:41)
[2020-05-13] MEDS: HYDROCOD/ACETAMIN 7.5-325 MG/15 ML ORAL SOLN UDCUP PO SCH ×3 (05:23→17:41)
[2020-05-13] MEDS: QUETIAPINE FUMARATE 25 MG TABLET NG SCH ×3 (05:23→17:42)
[2020-05-13 06:04] LABS: ABSOLUTE EOSINOPHILS # (AUTO) 0.1 10^3/uL (0.0-0.6); ABSOLUTE MONOCYTES (AUTO) 1.1 10^3/uL (0.1-1.4); ABSOLUTE NEUT (AUTO) 14.6 10^3/uL (1.7-8.2); BASOPHILS % (AUTO) 0.2 % (0-2); EOSINOPHILS % (AUTO) 0.6 % (0-6); HEMATOCRIT 24.7 % (36.0-47.0); HEMOGLOBIN 8.1 g/dL (12.0-15.5); LYMPHOCYTES % (AUTO) 11.3 % (13-45); MEAN CORPUSCULAR HEMOGLOBIN 28.6 pg (27.0-33.4); MEAN CORPUSCULAR VOLUME 87 fl (80-97); MONOCYTES % (AUTO) 6.3 % (3-13); PLATELET COUNT 192 10^3/uL (150-450); RED BLOOD COUNT 2.85 10^6/uL (3.72-5.28); RED CELL DISTRIBUTION WIDTH 21.2 % (11.5-14.0); SEGMENTED NEUTROPHILS % (AUTO) 81.6 % (42-78); TOTAL CELLS COUNTED % (AUTO) 100 %; WHITE BLOOD COUNT 17.9 10^3/uL (4.0-10.5)
[2020-05-13 06:57] LABS: ANISOCYTOSIS 3+; PLATELET COMMENT ADEQUATE
[2020-05-13 06:58] LABS: POLYCHROMASIA 1+; TEAR DROP CELLS SLIGHT
[2020-05-13 06:59] LABS: TARGET CELLS SLIGHT
[2020-05-13 07:33] LABS: ANION GAP 8 (5-19); BLOOD UREA NITROGEN 49 mg/dL (7-20); CALCIUM 9.6 mg/dL (8.4-10.2); CARBON DIOXIDE 36 mmol/L (22-30); CHLORIDE 102 mmol/L (98-107); GLUCOSE 154 mg/dL (75-110); POTASSIUM 3.5 mmol/L (3.6-5.0)
[2020-05-13 07:44] LABS: C-REACTIVE PROTEIN 151.8 mg/L (<10.0)
[2020-05-13] MEDS: BUDESONIDE NEB 0.25 MG/2 ML AMPUL NEB SCH ×2 (08:07→20:13)
[2020-05-13] MEDS: ALBUTEROL SULFATE 0.083% NEB 2.5 MG/3 ML AMPUL NEB PRN (08:07)
[2020-05-13] MEDS: POTASSIUM CHLORIDE 20 MEQ PACKET PO SCH (10:27)
[2020-05-13] MEDS: LINEZOLID 600 MG/300 ML RTUPB IV SCH ×2 (10:27→21:52)
[2020-05-13] MEDS: AMINO AC/PROTEIN HYDR/WHEY PRO 11 GM/45 ML PKT NG SCH ×3 (10:27→17:42)
[2020-05-13] MEDS: CEFEPIME 1 GM/D5W RTU 1 GM/50 ML RTUPB IV SCH ×2 (10:27→21:53)
[2020-05-13] MEDS: FAMOTIDINE INJ/PF 20 MG/2 ML SDV IV SCH ×2 (10:28→21:51)
[2020-05-13] MEDS: INSULIN GLARGINE,HUM.REC.ANLOG 1,000 UNIT/10 ML VIAL SUBCUT SCH ×2 (10:28→21:54)
[2020-05-13] MEDS: FUROSEMIDE INJ/PF 40 MG/4 ML SDV IV SCH ×2 (10:28→21:51)
[2020-05-13] MEDS: METHYLPREDNISOLONE INJ 40 MG/1 ML SDV IV SCH (10:28)
[2020-05-13] MEDS: LABETALOL HCL INJ 20 MG/4 ML DISP.SYRIN IV PRN (10:57)
--- NOTE | 2020-05-13 11:16 | PDOC CRITICAL CARE PROG REPORT ---
General Date:: 05/13/20 ICU Day:: 42 Ventilator Day:: 42 Hospital Day:: 52 Resuscitation Status: Full Code Events in the past 12 to 24 Hours:: This 44-year-old -[place] female presented to [facility] emergency department on 03/21/2020 with complaints of possible presyncope versus syncope in addition to fever, chills, productive cough, dyspnea and exertional dyspnea. She has a history of psychiatric disorders and is known to be a difficult historian. Nonetheless, the patient also was known to have been diagnosed with COVID-19 pneumonia on 03/17/2020 and had subsequently been evaluated in the emergency department. She was apparently discharged home with prescriptions for azithromycin and other medications for symptomatic treatment. She returned with worsening shortness of breath and newly demonstrating supplemental oxygen requirement. 04/09-04/10: Remains intubated. Sedated with Precedex/Versed/fentanyl. On pressure control mode with peak and plateau pressures in the 40s. On insulin infusion for glucose control. On Glucerna + Prosource. KUB obtained showed a gasless abdomen, incongruent with physical exam (possibly due to morbid obesity). Still no BM. 04/11-: Had brisk diuresis with furosemide 40 mg IV single dose (2600 mL urine output), which resulted in a decrease in CVP. However, CVP is now back up to 910. On PRVC mode. ABG this a.m.: 7.46/46/53. Creatinine 0.6. WBC 17.3>11.4. Still no BM. On Versed/fentanyl/Precedex for sedation. Opens eyes to physical stimuli. Tube feeding currently on hold due to high residuals. Of note, even in the absence of tube feeding, the patient is having gastric residuals in the 200s. She does demonstrate spontaneous eye opening. She does not follow commands. 04/13-: Switched to BiVENT/APRV on 04/12/2020 (FiO2 80%, P high 17, T high 9.5 seconds, P low 3, T low 0.5 seconds). ABG this a.m.: 7.42/50/72. Off insulin infusion. Overnight, the patient had an episode of hypoglycemia (40) despite being on trickle tube feeds. Blood cultures (04/13) isolated gram-positive cocci in clusters. Tracheal aspirate (04/13) isolated Staphylococcus aureus. GPC is MSSA sens to rocephin. Still unsure if it's a contaminate. No progress made on ventilator. Changed back to PRVC on 04/16. Still 100% and PEEP 14. 04/18: CXR looks better. Will try weaning today. FiO2 first. 04/19-: Not able to wean yesterday. O2 saturations 95-96%. Will wean PEEP. Down to 10 in effort to lower PEEP for trach which I believe she will need. No weaning on drips yet. Will need trach and PEG. O2 saturations worse, in mid to low 80s on 100%. Talked with Dr. Owen regarding need for trach next week. 04/23: Remains intubated. On rocuronium, Versed and fentanyl infusions. FiO2 95%. PRVC. WBC 13.6. D-dimer 3.14. CRP 59.1. Magnesium 1.5. 04/24: Rocuronium was discontinued yesterday. The patient's ventilator mode was switched to BiVENT. Versed changed to propofol. Still on fentanyl. On BiVENT. [place] sedated. 04/25: Yesterday afternoon, she developed acute hypoxemic decompensation followed by profound hypotension. Clinically, this was highly suspicious for pulmonary embolism. She was started on heparin infusion. SVO2 was found to be 15%. She was started on dobutamine. Ventilator settings were changed. She is still on BiVENT/APRV but now with settings that closely mimic inverse I:E pressure control ventilation. FiO2 100%. P high 20, P low 10, T high 1.5, T low 0.5. 04/26: COVID-19 (HUGH from 04/23) finally returned to negative result. Dobutamine changed to milrinone yesterday. Still on BiVENT/APRV but has been tolerating lower pressures in longer T high times. Had an episode of oxygen desaturation again this morning. Clinically, it appears that she is having increased secretions from the airway, possibly with mucous plugging. Settings were changed subsequent to oxygen desaturation: P high 30, P low 10, T high 1.5, T low 0.5. ABG this a.m.: 7.36/51/69. Diuresing, -869 mL yesterday. proBNP 5880. BM +. 04/27: [place] sedated, synchronous with ventilator. BG this a.m. 7.28/64/78. WBC 25.8 this AM. CRP 200. D-dimer 2.04. 04/28: WBC down to 25.8>14.8 this AM. Not on antibiotics. However, hemoglobin also dropped to 6.6. Repeat hemoglobin 6.2. No obvious blood loss. Blood urine and tracheal aspirate cultures from 04/27 pending. On propofol/Pre cedex/fentanyl. Triglycerides 183. 04/29: Febrile (T-max 24-hour 102.7 Fahrenheit), reportedly refractory to Tylenol and cooling blanket. WBC 28.3. Hemoglobin 6.2>9 after transfusion of 2 units PRBC yesterday. Started on vancomycin overnight due to gram-positive cocci in trach aspirate (04/27), which are now being reported as MRSA. Also, blood cultures (1 of 2) are growing out Staphylococcus species, possibly a contaminant. Still on propofol/Precedex/fentanyl for sedation. Started Versed overnight as well. On BiVENT/APRV: P high 20, P low 3, T high 5.5, T low 0.5. + PSV 15. 04/30: Bun/Cr slightly up. Vancomycin stopped. Linezolid started. Off propofol, may have had propofol infusion syndrome. 05/01: Only small changes in vent made as tolerated. 05/02: Decrease in H/H today, likely anemia of chronic disease. No apparent signs of bleeding. I was able to lower her inspiratory time (PEEP high) slightly without any significant change in SPO2. Her FiO2 was also decreased to 90%. No other significant changes. Plan will be to consult surgery for tracheostomy placement. 05/03/2020: Small incremental changes made on the ventilator today. FiO2 weaned slightly. No other significant changes. 05/04/2020: Patient has had a small bit of progress with weaning her FiO2. We will continue as tolerated and make attempts to wean her bilevel as well today. 05/05/2020: No significant changes over the past 24 hours. Patient has been saturating well with 80 to 90% FiO2. Overall plan today is to continue to wean. Patient will need tracheostomy tube. 05/06: Overall no major change. Has been seen by Dr. Manriquez regarding need for trach 05/05. 05/07: Plan for tracheostomy on 05/08. 05/08: Patient underwent uneventful tracheostomy today. 05/09: Starting to come down on sedation. 05/10: Off versed. May have to increase fentanyl. 05/11: Not able to make changes to vent. Not awakening off versed. 05/12: Seems to be calmer with addition of seroquel, although to early to tell. 05/13: Still having intermittent agitation. Seems less. Review of systems relevant to events:: Pulmonary, neurologic. Reason for ICU Addmission:: acute respiratory failure, covid -19 pneumonia, Has trach, on vent. - Medications: Medications reviewed and adjusted accordingly: Yes Vasopressors:: None Sedation:: Precedex. Physical Exam Vital Signs: Temp Pulse Resp BP Pulse Ox 100.9 F H 107 H 32 H 154/138 H 97 05/13/20 08:00 05/13/20 08:07 05/13/20 08:07 05/13/20 08:00 05/13/20 08:07 Intake & Output 05/12/20 05/13/20 05/14/20 06:59 06:59 06:59 Intake Total 3245 3021 200 Output Total 4905 4800 375 Balance -1660 -1779 -175 Weight 139 kg 141.7 kg Weight/Height Weight 141.7 kg Height 5 ft 3 in General appearance: PRESENT: morbidly obese Head exam: PRESENT: atraumatic, normocephalic Eye exam: PRESENT: conjunctiva pink, EOMI, PERRLA. ABSENT: scleral icterus Ear exam: PRESENT: normal external ear exam Mouth exam: PRESENT: moist, tongue midline Neck exam: PRESENT: tracheostomy. ABSENT: carotid bruit, JVD, lymphadenopathy, thyromegaly Respiratory exam: PRESENT: clear to auscultation reji, symmetrical, tachypnea. ABSENT: rales, rhonchi, wheezes Cardiovascular exam: PRESENT: RRR, tachycardia. ABSENT: diastolic murmur, rubs, systolic murmur GI/Abdominal exam: PRESENT: normal bowel sounds, soft. ABSENT: distended, guarding, mass, organolmegaly, rebound, tenderness Rectal exam: PRESENT: deferred Gentrourinary exam: PRESENT: indwelling catheter Extremities exam: PRESENT: full ROM. ABSENT: calf tenderness, clubbing, pedal edema Musculoskeletal exam: PRESENT: normal inspection Neurological exam: PRESENT: other - She will look in the direction of a startle, then no response. Will not track. No spontaneous or purposeful movements. Skin exam: PRESENT: dry, intact, warm. ABSENT: cyanosis, rash Tubes/Lines: PRESENT: Central Line, Nasogastic Tube, Other - Trach. Laboratory/Radiographs Laboratory Results: 05/13/20 05:16 05/13/20 05:16 05/13/20 05/13/20 05:16 05:16 WBC 17.9 H RBC 2.85 L Hgb 8.1 L Hct 24.7 L MCV 87 MCH 28.6 MCHC 33.0 RDW 21.2 H Plt Count 192 Seg Neutrophils % 81.6 H Sodium 146.3 H Potassium 3.5 L Chloride 102 Carbon Dioxide 36 H Anion Gap 8 BUN 49 H Creatinine 0.68 Est GFR ( Amer) > 60 Glucose 154 H Calcium 9.6 C-Reactive Protein 151.8 H 05/09/20 20:30 Blood Blood Culture (PCR) - Final Staphylococcus Aureus 05/09/20 20:30 Blood Blood Culture - Final Mrsa (Meth Resis Staph Aureus) 05/09/20 23:25 Blood Blood Culture - Final Mrsa (Meth Resis Staph Aureus) 05/09/20 17:14 Tracheal Aspirate Gram Stain - Final 05/09/20 17:14 Tracheal Aspirate Sputum Culture - Final Enterobacter Cloacae Staphylococcus Aureus Normal Chloe Absent 03/21/20 04/11/20 04/14/20 21:58 03:05 01:59 Creatine Kinase Troponin I < 0.012 NT-Pro-B Natriuret Pep 192 H 184 H 04/24/20 04/25/20 04/26/20 14:18 09:01 03:53 Creatine Kinase Troponin I 0.012 NT-Pro-B Natriuret Pep 7620 H 5880 H 04/30/20 03:50 Creatine Kinase 301 H Troponin I NT-Pro-B Natriuret Pep Impressions: Abdomen Ultrasound 04/10/20 00:00 IMPRESSION: NO EVIDENCE FOR ASCITES. KUB X-Ray 04/29/20 00:00 IMPRESSION: NG tube is present with side port and tip overlying the body of the stomach. Chest X-Ray 05/10/20 00:00 IMPRESSION: Right IJ line tip at the cavoatrial junction. No pneumothorax. All labs, radiographs, diagnostic studies and EKGs were personally reviewed: Yes In addition, reports of radiographic and diagnostic studies were read: Yes Assessment and Plan - Diagnosis (1) Pneumonia due to COVID-19 virus Is this a current diagnosis for this admission?: Yes Plan: This is likely the cause of her pulmonary and neurological condition. Testing is negative. (2) Morbid obesity with BMI of 50.0-59.9, adult Is this a current diagnosis for this admission?: Yes Plan: Chronic (3) Anemia Is this a current diagnosis for this admission?: Yes Plan: Stable (4) Leukocytosis Qualifiers: Leukocytosis type: unspecified Qualified Code(s): D72.829 - Elevated white blood cell count, unspecified Is this a current diagnosis for this admission?: Yes Plan: Improving to 17K. No sign of infection yet. (5) Neurological deficit present Is this a current diagnosis for this admission?: Yes Plan: At this point serious thought should be given to a neurological deficit involving the midbrain and brainstem. She has a deminished startle reflex. She will turn eyes in the direction of startle but not track. She does not acknowledge your presence. Her RR, HR and blood pressure ar difficult to control. Today I went down to an FIO2 of 70%. Her O2 saturations dropped to 82. I then went up to 100% and her saturations increased to 92%. I dropped her PSV and tried IMV of 15. None of these moves changed her RR from 35-40. It did not change her effort. She would benfit from an MRI of the brain. We cannot on the ventilator. If their is a brainstem injury at this late date it is likely permanent. Attention should be given to withdraw of care or buttermaker helper placement. Plan Summary: Right now no change in plan except buttermaker helper placement. Critical Time Critical Time (minutes): 35 Level of Care: ICU Anticipated discharge: SNF Anticipated DC Timeframe: Other -: 1. The care of a critical patient is a dynamic process. This note is a transportation services representative synopsis but static in nature. The timeframe for treatments given in order is not necessarily the actual time these treatments may have been done. 2. This patient requires critical care secondary to ongoing requirements for therapy not offered or safe outside the critical care environment. Transfer to a lower level of care will result in altered life or limb morbidity and mortality. 3. Multidisciplinary rounds completed. 4. ABCDE bundle addressed.
[2020-05-13] MEDS: HEPARIN SODIUM,PORCINE/D5W 25,000 UNIT/250 ML RTUINJ IV PRN (13:34)
[2020-05-13] MEDS: MELATONIN 5 MG TABLET NG SCH (21:52)
[2020-05-14] MEDS: DEXMEDETOMIDINE IN 0.9 % NACL 400 MCG/100 ML RTUPB IV PRN ×8 (00:42→15:06)
[2020-05-14] MEDS: QUETIAPINE FUMARATE 25 MG TABLET NG SCH ×4 (00:47→17:49)
[2020-05-14] MEDS: HYDROCOD/ACETAMIN 7.5-325 MG/15 ML ORAL SOLN UDCUP PO SCH ×5 (00:47→23:17)
[2020-05-14] MEDS: LORAZEPAM 1 MG TABLET NG SCH ×5 (00:47→23:17)
[2020-05-14] MEDS: INSULIN REG, HUMAN 100 UNIT/ML 3 ML VIAL (PYX) SUBCUT SCH ×6 (02:00→21:48)
[2020-05-14] MEDS: HEPARIN SODIUM,PORCINE/D5W 25,000 UNIT/250 ML RTUINJ IV PRN ×2 (05:41→23:26)
--- NOTE | 2020-05-14 07:54 | EKG REPORT ---
SEVERITY:- OTHERWISE NORMAL ECG - SINUS TACHYCARDIA : Confirmed by: Emanuel Gandara 14-May-2020 07:54:11
[2020-05-14] MEDS: BUDESONIDE NEB 0.25 MG/2 ML AMPUL NEB SCH ×2 (08:27→19:58)
[2020-05-14] MEDS: ALBUTEROL SULFATE 0.083% NEB 2.5 MG/3 ML AMPUL NEB PRN (08:27)
[2020-05-14] MEDS: FAMOTIDINE INJ/PF 20 MG/2 ML SDV IV SCH ×2 (10:23→21:42)
[2020-05-14] MEDS: CEFEPIME 1 GM/D5W RTU 1 GM/50 ML RTUPB IV SCH ×2 (10:23→21:42)
[2020-05-14] MEDS: METHYLPREDNISOLONE INJ 40 MG/1 ML SDV IV SCH (10:23)
[2020-05-14] MEDS: AMINO AC/PROTEIN HYDR/WHEY PRO 11 GM/45 ML PKT NG SCH ×3 (10:23→17:47)
[2020-05-14] MEDS: FUROSEMIDE INJ/PF 40 MG/4 ML SDV IV SCH ×2 (10:23→21:42)
[2020-05-14] MEDS: LINEZOLID 600 MG/300 ML RTUPB IV SCH ×2 (10:23→21:42)
[2020-05-14] MEDS: INSULIN GLARGINE,HUM.REC.ANLOG 1,000 UNIT/10 ML VIAL SUBCUT SCH ×2 (10:24→21:48)
[2020-05-14 11:33] LABS: PATH REVIEW PATHOLOGIST REVIEWED
[2020-05-14 13:03] LABS: ABSOLUTE BASOPHILS # (AUTO) 0.1 10^3/uL (0.0-0.2); ABSOLUTE LYMPHOCYTES (AUTO) 1.8 10^3/uL (0.5-4.7); ABSOLUTE MONOCYTES (AUTO) 1.1 10^3/uL (0.1-1.4); ABSOLUTE NEUT (AUTO) 11.4 10^3/uL (1.7-8.2); BASOPHILS % (AUTO) 0.8 % (0-2); EOSINOPHILS % (AUTO) 0.3 % (0-6); HEMATOCRIT 24.7 % (36.0-47.0); LYMPHOCYTES % (AUTO) 12.4 % (13-45); MEAN CORPUSCULAR HEMOGLOBIN 28.6 pg (27.0-33.4); MEAN CORPUSCULAR HGB CONC 32.4 g/dL (32.0-36.0); MEAN CORPUSCULAR VOLUME 88 fl (80-97); MONOCYTES % (AUTO) 7.4 % (3-13); PLATELET COUNT 158 10^3/uL (150-450); RED CELL DISTRIBUTION WIDTH 21.2 % (11.5-14.0); SEGMENTED NEUTROPHILS % (AUTO) 79.1 % (42-78); TOTAL CELLS COUNTED % (AUTO) 100 %; WHITE BLOOD COUNT 14.4 10^3/uL (4.0-10.5)
[2020-05-14 13:12] LABS: ANION GAP 5 (5-19); BLOOD UREA NITROGEN 42 mg/dL (7-20); CALCIUM 9.2 mg/dL (8.4-10.2); CARBON DIOXIDE 37 mmol/L (22-30); CHLORIDE 95 mmol/L (98-107); GLUCOSE 167 mg/dL (75-110); PHOSPHORUS 4.2 mg/dL (2.5-4.5); POTASSIUM 3.2 mmol/L (3.6-5.0)
--- NOTE | 2020-05-14 19:21 | PDOC CRITICAL CARE PROG REPORT ---
General Date:: 05/14/20 ICU Day:: 43 Ventilator Day:: 43 - Tracheostomy 05/08/2020 Hospital Day:: 53 Resuscitation Status: Full Code Events in the past 12 to 24 Hours:: This 44-year-old -[place] female presented to [facility] emergency department on 03/21/2020 with complaints of possible presyncope versus syncope in addition to fever, chills, productive cough, dyspnea and exertional dyspnea. She has a history of psychiatric disorders and is known to be a difficult historian. Nonetheless, the patient also was known to have been diagnosed with COVID-19 pneumonia on 03/17/2020 and had subsequently been evaluated in the emergency department. She was apparently discharged home with prescriptions for azithromycin and other medications for symptomatic treatment. She returned with worsening shortness of breath and newly demonstrating supplemental oxygen requirement. 04/09-04/10: Remains intubated. Sedated with Precedex/Versed/fentanyl. On pressure control mode with peak and plateau pressures in the 40s. On insulin infusion for glucose control. On Glucerna + Prosource. KUB obtained showed a gasless abdomen, incongruent with physical exam (possibly due to morbid obesity). Still no BM. 04/11-: Had brisk diuresis with furosemide 40 mg IV single dose (2600 mL urine output), which resulted in a decrease in CVP. However, CVP is now back up to 910. On PRVC mode. ABG this a.m.: 7.46/46/53. Creatinine 0.6. WBC 17.3>11.4. Still no BM. On Versed/fentanyl/Precedex for sedation. Opens eyes to physical stimuli. Tube feeding currently on hold due to high residuals. Of note, even in the absence of tube feeding, the patient is having gastric residuals in the 200s. She does demonstrate spontaneous eye opening. She does not follow commands. 04/13-: Switched to BiVENT/APRV on 04/12/2020 (FiO2 80%, P high 17, T high 9.5 seconds, P low 3, T low 0.5 seconds). ABG this a.m.: 7.42/50/72. Off insulin infusion. Overnight, the patient had an episode of hypoglycemia (40) despite being on trickle tube feeds. Blood cultures (04/13) isolated gram-positive cocci in clusters. Tracheal aspirate (04/13) isolated Staphylococcus aureus. GPC is MSSA sens to rocephin. Still unsure if it's a contaminate. No progress made on ventilator. Changed back to PRVC on 04/16. Still 100% and PEEP 14. 04/18: CXR looks better. Will try weaning today. FiO2 first. 04/19-: Not able to wean yesterday. O2 saturations 95-96%. Will wean PEEP. Down to 10 in effort to lower PEEP for trach which I believe she will need. No weaning on drips yet. Will need trach and PEG. O2 saturations worse, in mid to low 80s on 100%. Talked with Dr. Owen regarding need for trach next week. 04/23: Remains intubated. On rocuronium, Versed and fentanyl infusions. FiO2 9 5%. PRVC. WBC 13.6. D-dimer 3.14. CRP 59.1. Magnesium 1.5. 04/24: Rocuronium was discontinued yesterday. The patient's ventilator mode was switched to BiVENT. Versed changed to propofol. Still on fentanyl. On BiVENT. [place] sedated. 04/25: Yesterday afternoon, she developed acute hypoxemic decompensation followed by profound hypotension. Clinically, this was highly suspicious for pulmonary embolism. She was started on heparin infusion. SVO2 was found to be 15%. She was started on dobutamine. Ventilator settings were changed. She is still on BiVENT/APRV but now with settings that closely mimic inverse I:E pressure control ventilation. FiO2 100%. P high 20, P low 10, T high 1.5, T low 0.5. 04/26: COVID-19 (HUGH from 04/23) finally returned to negative result. Dobutamine changed to milrinone yesterday. Still on BiVENT/APRV but has been tolerating lower pressures in longer T high times. Had an episode of oxygen desaturation again this morning. Clinically, it appears that she is having increased secretions from the airway, possibly with mucous plugging. Settings w ere changed subsequent to oxygen desaturation: P high 30, P low 10, T high 1.5, T low 0.5. ABG this a.m.: 7.36/51/69. Diuresing, -869 mL yesterday. proBNP 5880. BM +. 04/27: [place] sedated, synchronous with ventilator. BG this a.m. 7.28/64/78. WBC 25.8 this AM. CRP 200. D-dimer 2.04. 04/28: WBC down to 25.8>14.8 this AM. Not on antibiotics. However, hemoglobin also dropped to 6.6. Repeat hemoglobin 6.2. No obvious blood loss. Blood urine and tracheal aspirate cultures from 04/27 pending. On propofol/Precedex/fentanyl. Triglycerides 183. 04/29: Febrile (T-max 24-hour 102.7 Fahrenheit), reportedly refractory to Tylenol and cooling blanket. WBC 28.3. Hemoglobin 6.2>9 after transfusion of 2 units PRBC yesterday. Started on vancomycin overnight due to gram-positive cocci in trach aspirate (04/27), which are now being reported as MRSA. Also, blood cultures (1 of 2) are growing out Staphylococcus species, possibly a contaminant. Still on propofol/Precedex/fentanyl for sedation. Started Versed overnight as well. On BiVENT/APRV: P high 20, P low 3, T high 5.5, T low 0.5. + PSV 15. 04/30: Bun/Cr slightly up. Vancomycin stopped. Linezolid started. Off propofol, may have had propofol infusion syndrome. 05/01: Only small changes in vent made as tolerated. 05/02: Decrease in H/H today, likely anemia of chronic disease. No apparent signs of bleeding. I was able to lower her inspiratory time (PEEP high) slightly without any significant change in SPO2. Her FiO2 was also decreased to 90%. No other significant changes. Plan will be to consult surgery for tracheostomy placement. 05/03/2020: Small incremental changes made on the ventilator today. FiO2 weaned slightly. No other significant changes. 05/04/2020: Patient has had a small bit of progress with weaning her FiO2. We will continue as tolerated and make attempts to wean her bilevel as well today. 05/05/2020: No significant changes over the past 24 hours. Patient has been saturating well with 80 to 90% FiO2. Overall plan today is to continue to wean. Patient will need tracheostomy tube. 05/06: Overall no major change. Has been seen by Dr. Manriquez regarding need for trach 05/05. 05/07: Plan for tracheostomy on 05/08. 05/08: Patient underwent uneventful tracheostomy today. 05/09: Starting to come down on sedation. 05/10: Off versed. May have to increase fentanyl. 05/11: Not able to make changes to vent. Not awakening off versed. 05/12: Seems to be calmer with addition of seroquel, although to early to tell. 05/13: Still having intermittent agitation. Seems less. 05/14: Off Precedex infusion this morning. On Ativan and Lortab per NG tube, tapering. Waking up. Follows commands. Mouthing words over ET tube. Occasional cough. Purulent secretions noted from the tracheostomy site. Still on BiVENT (P high 30, P low 10, T high 1.2, T low 0.8 + PSV 10). On cefepime/linezolid for trach aspirate (05/09) isolating E cloacae and S. aureus and MRSA bacteremia (05/09). T-max 100.6 today. Review of systems relevant to events:: Pulmonary, neurologic. Reason for ICU Addmission:: acute respiratory failure, covid -19 pneumonia, Has trach, on vent. - Medications: Medications reviewed and adjusted accordingly: Yes Vasopressors:: None Sedation:: Precedex Physical Exam Vital Signs: Temp Pulse Resp BP Pulse Ox 98.6 F 99 36 H 140/86 H 98 05/14/20 12:00 05/14/20 12:00 05/14/20 13:41 05/14/20 13:41 05/14/20 13:41 Intake & Output 05/13/20 05/14/20 05/15/20 06:59 06:59 06:59 Intake Total 3021 2819 316 Output Total 2674 9773 850 Balance -6819 -2031 -432 Weight 141.7 kg 139 kg Weight/Height Weight 139 kg Height 1.6 m General appearance: PRESENT: no acute distress, well-developed, well-nourished Head exam: PRESENT: atraumatic, normocephalic Eye exam: PRESENT: conjunctiva pink, EOMI, PERRLA. ABSENT: scleral icterus Neck exam: PRESENT: tracheostomy, other - Copious off-white secretions from tracheostomy site (surgical site). ABSENT: carotid bruit, JVD, lymphadenopathy, thyromegaly Respiratory exam: PRESENT: rales, symmetrical, tachypnea. ABSENT: rhonchi, wheezes Cardiovascular exam: PRESENT: RRR. ABSENT: diastolic murmur, rubs, systolic murmur Pulses: PRESENT: normal dorsalis pedis pul GI/Abdominal exam: PRESENT: normal bowel sounds, soft. ABSENT: distended, guarding, mass, organolmegaly, rebound, tenderness Extremities exam: PRESENT: full ROM, pedal edema. ABSENT: calf tenderness, clubbing Musculoskeletal exam: PRESENT: normal inspection. ABSENT: deformity Neurological exam: PRESENT: awake, CN II-XII grossly intact. ABSENT: reflexes normal, motor sensory deficit Psychiatric exam: ABSENT: agitated, anxious Skin exam: PRESENT: dry, intact, warm. ABSENT: cyanosis, rash Tubes/Lines: PRESENT: Central Line - Right IJ (05/08) Laboratory/Radiographs Laboratory Results: 05/14/20 03:50 05/14/20 03:50 05/14/20 05/14/20 03:50 03:50 WBC 14.4 H RBC 2.80 L Hgb 8.0 L Hct 24.7 L MCV 88 MCH 28.6 MCHC 32.4 RDW 21.2 H Plt Count 158 Seg Neutrophils % 79.1 H Sodium 137.2 Potassium 3.2 L Chloride 95 L Carbon Dioxide 37 H Anion Gap 5 BUN 42 H Creatinine 0.64 Est GFR ( Amer) > 60 Glucose 167 H Calcium 9.2 Phosphorus 4.2 Magnesium 1.9 03/21/20 04/11/20 04/14/20 21:58 03:05 01:59 Creatine Kinase Troponin I < 0.012 NT-Pro-B Natriuret Pep 192 H 184 H 04/24/20 04/25/20 04/26/20 14:18 09:01 03:53 Creatine Kinase Troponin I 0.012 NT-Pro-B Natriuret Pep 7620 H 5880 H 04/30/20 03:50 Creatine Kinase 301 H Troponin I NT-Pro-B Natriuret Pep Impressions: Abdomen Ultrasound 04/10/20 00:00 IMPRESSION: NO EVIDENCE FOR ASCITES. KUB X-Ray 04/29/20 00:00 IMPRESSION: NG tube is present with side port and tip overlying the body of the stomach. Chest X-Ray 05/10/20 00:00 IMPRESSION: Right IJ line tip at the cavoatrial junction. No pneumothorax. All labs, radiographs, diagnostic studies and EKGs were personally reviewed: Yes In addition, reports of radiographic and diagnostic studies were read: Yes Assessment and Plan - Diagnosis (1) Acute respiratory failure with hypoxia and hypercapnia Is this a current diagnosis for this admission?: Yes (2) Fever Qualifiers: Encounter type: initial encounter Is this a current diagnosis for this admission?: Yes Plan: * Continue cefepime/linezolid. * Wound culture (tracheostomy). * Continue Tylenol as needed. (3) Staphylococcal pneumonia Is this a current diagnosis for this admission?: Yes Plan: * MRSA pneumonia. Continue linezolid (start date 05/10). (4) Pneumonia due to COVID-19 virus Is this a current diagnosis for this admission?: Yes (5) Steroid-induced hyperglycemia Is this a current diagnosis for this admission?: Yes Plan: * Although this patient has been requiring treatment with insulin for glucose control (albeit, with ongoing high-dose steroid therapy), it is noted that this patient has no history of diabetes. * Of note, hemoglobin A1c 6.0% (04/13, recheck 04/14). * Continue Lantus and sliding scale insulin. * Wean steroids as tolerated. (6) Normocytic anemia Is this a current diagnosis for this admission?: Yes (7) Leukocytosis Qualifiers: Leukocytosis type: unspecified Qualified Code(s): D72.829 - Elevated white blood cell count, unspecified Is this a current diagnosis for this admission?: Yes (8) Schizophrenia Qualifiers: Schizophrenia type: unspecified Qualified Code(s): F20.9 - Schizophrenia, unspecified Is this a current diagnosis for this admission?: Yes Plan: * Not severe according to family. (9) Staphylococcus aureus bacteremia Is this a current diagnosis for this admission?: Yes Plan: * Continue linezolid. Critical Time Critical Time (minutes): 45 Level of Care: ICU -: 1. The care of a critical patient is a dynamic process. This note is a pharmaceutical sales representative synopsis but static in nature. The timeframe for treatments given in order is not necessarily the actual time these treatments may have been done. 2. This patient requires critical care secondary to ongoing requirements for therapy not offered or safe outside the critical care environment. Transfer to a lower level of care will result in altered life or limb morbidity and mortality. 3. Multidisciplinary rounds completed. 4. ABCDE bundle addressed.
[2020-05-14] MEDS ORDERED: DILTIAZEM HCL INJ 25 MG/5 ML VIAL IV ONE (20:33)
[2020-05-14] MEDS ORDERED: DILTIAZEM HCL INJ 25 MG/5 ML VIAL ONE (20:34)
[2020-05-14] MEDS ORDERED: FENTANYL CITRATE INJ/PF 100 MCG/2 ML AMPUL IV ONE (20:50)
[2020-05-14] MEDS ORDERED: FENTANYL CITRATE INJ/PF 100 MCG/2 ML AMPUL ONE (20:51)
[2020-05-14] MEDS: ACETAMINOPHEN SOLN 325 MG/10.15 ML UDCUP PO PRN (20:58)
[2020-05-14] MEDS: MELATONIN 5 MG TABLET NG SCH (21:42)
[2020-05-14] MEDS: LABETALOL HCL INJ 20 MG/4 ML DISP.SYRIN IV PRN (23:17)
[2020-05-15] MEDS: QUETIAPINE FUMARATE 25 MG TABLET NG SCH ×4 (00:49→17:59)
[2020-05-15] MEDS: INSULIN REG, HUMAN 100 UNIT/ML 3 ML VIAL (PYX) SUBCUT SCH ×6 (03:58→21:34)
[2020-05-15 05:59] LABS: HEMATOCRIT 28.6 % (36.0-47.0); HEMOGLOBIN 9.4 g/dL (12.0-15.5); MEAN CORPUSCULAR HEMOGLOBIN 28.4 pg (27.0-33.4); MEAN CORPUSCULAR VOLUME 86 fl (80-97); PLATELET COUNT 286 10^3/uL (150-450); RED BLOOD COUNT 3.32 10^6/uL (3.72-5.28); WHITE BLOOD COUNT 22.2 10^3/uL (4.0-10.5)
[2020-05-15] MEDS: LORAZEPAM 1 MG TABLET NG SCH ×3 (06:03→17:59)
[2020-05-15] MEDS: HYDROCOD/ACETAMIN 7.5-325 MG/15 ML ORAL SOLN UDCUP PO SCH ×3 (06:03→17:59)
[2020-05-15 06:05] LABS: ARTERIAL BLOOD BASE EXCESS 9.9 mmol/L; ARTERIAL BLOOD FIO2 100%; ARTERIAL BLOOD H2CO3 1.54 mmol/L (1.05-1.35); ARTERIAL BLOOD HCO3 35.6 mmol/L (20-24); ARTERIAL BLOOD O2 SATURATION 97.4 % (94-98); ARTERIAL BLOOD PCO2 51.2 mmHg (35-45); ARTERIAL BLOOD PH 7.46 (7.35-7.45); ARTERIAL BLOOD PO2 94.4 mmHg (80-100); ARTERIAL BLOOD TOTAL CO2 37.2 mmol/L (21-25)
[2020-05-15 06:12] LABS: ANION GAP 7 (5-19); BLOOD UREA NITROGEN 39 mg/dL (7-20); CALCIUM 9.7 mg/dL (8.4-10.2); CARBON DIOXIDE 39 mmol/L (22-30); CHLORIDE 92 mmol/L (98-107); GLUCOSE 146 mg/dL (75-110); PHOSPHORUS 3.8 mg/dL (2.5-4.5)
[2020-05-15 06:14] LABS: POTASSIUM 2.6 mmol/L (3.6-5.0)
[2020-05-15] MEDS ORDERED: POTASSI CL 20 MEQ/50 ML RIDER 60 MEQ/150 ML RTUPB IV ONE (06:41)
[2020-05-15] MEDS: POTASSI CL 20 MEQ/50 ML RIDER 20 MEQ/50 ML RTUPB IV SCH ×3 (06:45→10:11)
[2020-05-15 07:13] LABS: ABSOLUTE LYMPHOCYTES# (MANUAL) 1.8 10^3/uL (0.5-4.7); ABSOLUTE MONOCYTES # (MANUAL) 1.6 10^3/uL (0.1-1.4); BASOPHILS % (MANUAL) 0 % (0-2); EOSINOPHILS % (MANUAL) 0 % (0-6); LYMPHOCYTES % (MANUAL) 8 % (13-45); MONOCYTES % (MANUAL) 7 % (3-13); SEGMENTED NEUTROPHILS % (MAN) 85 % (42-78); TOTAL CELLS COUNTED 100
[2020-05-15 07:17] LABS: ANISOCYTOSIS 3+; OVALOCYTES SLIGHT; POIKILOCYTOSIS 1+; POLYCHROMASIA 1+; TARGET CELLS SLIGHT
[2020-05-15 07:18] LABS: PLATELET COMMENT ADEQUATE
[2020-05-15] MEDS: BUDESONIDE NEB 0.25 MG/2 ML AMPUL NEB SCH ×2 (07:50→20:31)
[2020-05-15] MEDS: ALBUTEROL SULFATE 0.083% NEB 2.5 MG/3 ML AMPUL NEB PRN (07:50)
--- NOTE | 2020-05-15 08:20 | RADIOLOGY REPORT (SQ) ---
EXAM DESCRIPTION: CHEST SINGLE VIEW IMAGES COMPLETED DATE/TIME: 05/15/2020 7:15 am REASON FOR STUDY: ETT tube COMPARISON: 05/10/2020. EXAM PARAMETERS: NUMBER OF VIEWS: One view. TECHNIQUE: Single frontal radiographic view of the chest acquired. RADIATION DOSE: NA LIMITATIONS: None. FINDINGS: LUNGS AND PLEURA: Faint bilateral airspace disease, unchanged. MEDIASTINUM AND HILAR STRUCTURES: No masses. Contour normal. HEART AND VASCULAR STRUCTURES: Mild cardiomegaly. BONES: No acute findings. HARDWARE: Stable tracheostomy tube, nasogastric tube, and central line. OTHER: No other significant finding. IMPRESSION: NO SIGNIFICANT INTERVAL CHANGE. TECHNICAL DOCUMENTATION: JOB ID: [id number] [employer]- All Rights Reserved Reading location - IP/workstation name: [email or web address]
[2020-05-15] MEDS: INSULIN GLARGINE,HUM.REC.ANLOG 1,000 UNIT/10 ML VIAL SUBCUT SCH ×2 (09:32→21:34)
[2020-05-15] MEDS: METHYLPREDNISOLONE INJ 40 MG/1 ML SDV IV SCH (09:33)
[2020-05-15] MEDS: FUROSEMIDE INJ/PF 40 MG/4 ML SDV IV SCH ×2 (09:33→21:34)
[2020-05-15] MEDS: AMINO AC/PROTEIN HYDR/WHEY PRO 11 GM/45 ML PKT NG SCH ×3 (09:34→17:58)
[2020-05-15] MEDS: FAMOTIDINE INJ/PF 20 MG/2 ML SDV IV SCH ×2 (09:34→21:34)
[2020-05-15] MEDS: CEFEPIME 1 GM/D5W RTU 1 GM/50 ML RTUPB IV SCH (09:34)
[2020-05-15] MEDS: LINEZOLID 600 MG/300 ML RTUPB IV SCH ×2 (09:35→21:35)
--- NOTE | 2020-05-15 16:53 | PDOC CRITICAL CARE PROG REPORT ---
General Date:: 05/15/20 ICU Day:: 44 Ventilator Day:: 44 - Tracheostomy 05/08/2020 Hospital Day:: 54 Resuscitation Status: Full Code Events in the past 12 to 24 Hours:: This 44-year-old -[place] female presented to [facility] emergency department on 03/21/2020 with complaints of possible presyncope versus syncope in addition to fever, chills, productive cough, dyspnea and exertional dyspnea. She has a history of psychiatric disorders and is known to be a difficult historian. Nonetheless, the patient also was known to have been diagnosed with COVID-19 pneumonia on 03/17/2020 and had subsequently been evaluated in the emergency department. She was apparently discharged home with prescriptions for azithromycin and other medications for symptomatic treatment. She returned with worsening shortness of breath and newly demonstrating supplemental oxygen requirement. 04/09-04/10: Remains intubated. Sedated with Precedex/Versed/fentanyl. On pressure control mode with peak and plateau pressures in the 40s. On insulin infusion for glucose control. On Glucerna + Prosource. KUB obtained showed a gasless abdomen, incongruent with physical exam (possibly due to morbid obesity). Still no BM. 04/11-: Had brisk diuresis with furosemide 40 mg IV single dose (2600 mL urine output), which resulted in a decrease in CVP. However, CVP is now back up to 910. On PRVC mode. ABG this a.m.: 7.46/46/53. Creatinine 0.6. WBC 17.3>11.4. Still no BM. On Versed/fentanyl/Precedex for sedation. Opens eyes to physical stimuli. Tube feeding currently on hold due to high residuals. Of note, even in the absence of tube feeding, the patient is having gastric residuals in the 200s. She does demonstrate spontaneous eye opening. She does not follow commands. 04/13-: Switched to BiVENT/APRV on 04/12/2020 (FiO2 80%, P high 17, T high 9.5 seconds, P low 3, T low 0.5 seconds). ABG this a.m.: 7.42/50/72. Off insulin infusion. Overnight, the patient had an episode of hypoglycemia (40) despite being on trickle tube feeds. Blood cultures (04/13) isolated gram-positive cocci in clusters. Tracheal aspirate (04/13) isolated Staphylococcus aureus. GPC is MSSA sens to rocephin. Still unsure if it's a contaminate. No progress made on ventilator. Changed back to PRVC on 04/16. Still 100% and PEEP 14. 04/18: CXR looks better. Will try weaning today. FiO2 first. 04/19-: Not able to wean yesterday. O2 saturations 95-96%. Will wean PEEP. Down to 10 in effort to lower PEEP for trach which I believe she will need. No weaning on drips yet. Will need trach and PEG. O2 saturations worse, in mid to low 80s on 100%. Talked with Dr. Owen regarding need for trach next week. 04/23: Remains intubated. On rocuronium, Versed and fentanyl infusions. FiO2 9 5%. PRVC. WBC 13.6. D-dimer 3.14. CRP 59.1. Magnesium 1.5. 04/24: Rocuronium was discontinued yesterday. The patient's ventilator mode was switched to BiVENT. Versed changed to propofol. Still on fentanyl. On BiVENT. Wickett sedated. 04/25: Yesterday afternoon, she developed acute hypoxemic decompensation followed by profound hypotension. Clinically, this was highly suspicious for pulmonary embolism. She was started on heparin infusion. SVO2 was found to be 15%. She was started on dobutamine. Ventilator settings were changed. She is still on BiVENT/APRV but now with settings that closely mimic inverse I:E pressure control ventilation. FiO2 100%. P high 20, P low 10, T high 1.5, T low 0.5. 04/26: COVID-19 (HUGH from 04/23) finally returned to negative result. Dobutamine changed to milrinone yesterday. Still on BiVENT/APRV but has been tolerating lower pressures in longer T high times. Had an episode of oxygen desaturation again this morning. Clinically, it appears that she is having increased secretions from the airway, possibly with mucous plugging. Settings w ere changed subsequent to oxygen desaturation: P high 30, P low 10, T high 1.5, T low 0.5. ABG this a.m.: 7.36/51/69. Diuresing, -869 mL yesterday. proBNP 5880. BM +. 04/27: Wickett sedated, synchronous with ventilator. BG this a.m. 7.28/64/78. WBC 25.8 this AM. CRP 200. D-dimer 2.04. 04/28: WBC down to 25.8>14.8 this AM. Not on antibiotics. However, hemoglobin also dropped to 6.6. Repeat hemoglobin 6.2. No obvious blood loss. Blood urine and tracheal aspirate cultures from 04/27 pending. On propofol/Precedex/fentanyl. Triglycerides 183. 04/29: Febrile (T-max 24-hour 102.7 Fahrenheit), reportedly refractory to Tylenol and cooling blanket. WBC 28.3. Hemoglobin 6.2>9 after transfusion of 2 units PRBC yesterday. Started on vancomycin overnight due to gram-positive cocci in trach aspirate (04/27), which are now being reported as MRSA. Also, blood cultures (1 of 2) are growing out Staphylococcus species, possibly a contaminant. Still on propofol/Precedex/fentanyl for sedation. Started Versed overnight as well. On BiVENT/APRV: P high 20, P low 3, T high 5.5, T low 0.5. + PSV 15. 04/30: Bun/Cr slightly up. Vancomycin stopped. Linezolid started. Off propofol, may have had propofol infusion syndrome. 05/01: Only small changes in vent made as tolerated. 05/02: Decrease in H/H today, likely anemia of chronic disease. No apparent signs of bleeding. I was able to lower her inspiratory time (PEEP high) slightly without any significant change in SPO2. Her FiO2 was also decreased to 90%. No other significant changes. Plan will be to consult surgery for tracheostomy placement. 05/03/2020: Small incremental changes made on the ventilator today. FiO2 weaned slightly. No other significant changes. 05/04/2020: Patient has had a small bit of progress with weaning her FiO2. We will continue as tolerated and make attempts to wean her bilevel as well today. 05/05/2020: No significant changes over the past 24 hours. Patient has been saturating well with 80 to 90% FiO2. Overall plan today is to continue to wean. Patient will need tracheostomy tube. 05/06: Overall no major change. Has been seen by Dr. Manriquez regarding need for trach 05/05. 05/07: Plan for tracheostomy on 05/08. 05/08: Patient underwent uneventful tracheostomy today. 05/09: Starting to come down on sedation. 05/10: Off versed. May have to increase fentanyl. 05/11: Not able to make changes to vent. Not awakening off versed. 05/12: Seems to be calmer with addition of seroquel, although to early to tell. 05/13: Still having intermittent agitation. Seems less. 05/14: Off Precedex infusion this morning. On Ativan and Lortab per NG tube, tapering. Waking up. Follows commands. Mouthing words over ET tube. Occasional cough. Purulent secretions noted from the tracheostomy site. Still on BiVENT (P high 30, P low 10, T high 1.2, T low 0.8 + PSV 10). On cefepime/linezolid for trach aspirate (05/09) isolating E cloacae and S. aureus and MRSA bacteremia (05/09). T-max 100.6 today. 05/15: Continues to be febrile. On cefepime/Zyvox. WBC 22.2. Cultures pending, but it appears preliminary results suggest trach aspirate is isolating gram- negative rods. K 2.6 this morning. Review of systems relevant to events:: Pulmonary, neurologic. Reason for ICU Addmission:: acute respiratory failure, covid -19 pneumonia, Has trach, on vent. - Medications: Medications reviewed and adjusted accordingly: Yes Vasopressors:: None Physical Exam Vital Signs: Temp Pulse Resp BP Pulse Ox 100.4 F 120 H 33 H 157/103 H 99 05/15/20 16:00 05/15/20 08:00 05/15/20 15:51 05/15/20 15:51 05/15/20 15:51 Intake & Output 05/14/20 05/15/20 05/16/20 06:59 06:59 06:59 Intake Total 2819 2638 600 Output Total 9449 0544 8557 Balance -2031 -907 -830 Weight 139 kg 138.1 kg Weight/Height Weight 138.1 kg Height 1.6 m Laboratory/Radiographs Laboratory Results: 05/15/20 04:40 05/15/20 04:40 05/15/20 05/15/20 05/15/20 04:40 04:40 04:40 WBC 22.2 H RBC 3.32 L Hgb 9.4 L Hct 28.6 L MCV 86 MCH 28.4 MCHC 33.0 RDW 21.0 H Plt Count 286 Seg Neutrophils % Not Reportable Carbonic Acid 1.54 H HCO3/H2CO3 Ratio 23:1 ABG pH 7.46 H ABG pCO2 51.2 H ABG pO2 94.4 ABG HCO3 35.6 H ABG O2 Saturation 97.4 ABG Base Excess 9.9 FiO2 100% Sodium 138.1 Potassium 2.6 L* Chloride 92 L Carbon Dioxide 39 H Anion Gap 7 BUN 39 H Creatinine 0.55 Est GFR ( Amer) > 60 Glucose 146 H Calcium 9.7 Phosphorus 3.8 Magnesium 1.6 C-Reactive Protein 64.0 H 03/21/20 04/11/20 04/14/20 21:58 03:05 01:59 Creatine Kinase Troponin I < 0.012 NT-Pro-B Natriuret Pep 192 H 184 H 04/24/20 04/25/20 04/26/20 14:18 09:01 03:53 Creatine Kinase Troponin I 0.012 NT-Pro-B Natriuret Pep 7620 H 5880 H 04/30/20 03:50 Creatine Kinase 301 H Troponin I NT-Pro-B Natriuret Pep Impressions: Abdomen Ultrasound 04/10/20 00:00 IMPRESSION: NO EVIDENCE FOR ASCITES. KUB X-Ray 04/29/20 00:00 IMPRESSION: NG tube is present with side port and tip overlying the body of the stomach. Chest X-Ray 05/15/20 05:00 IMPRESSION: NO SIGNIFICANT INTERVAL CHANGE. Assessment and Plan - Diagnosis (1) Acute respiratory failure with hypoxia and hypercapnia Is this a current diagnosis for this admission?: Yes Plan: * Diurese. * Continue BiVENT. P hi 18, P lo 3, T hi 5.5, T lo 0.5 + PSV 10/12+PEEP. * Follow up vent settings changes with ABG results. (2) Fever Qualifiers: Encounter type: initial encounter Is this a current diagnosis for this admission?: Yes Plan: * Change cefepime to meropenem. Add GINO nebs. * Continue linezolid. * Follow-up cultures. * Continue Tylenol as needed. (3) Pneumonia due to COVID-19 virus Is this a current diagnosis for this admission?: Yes Plan: This is likely the cause of her pulmonary and neurological condition. Testing is negative. (4) Steroid-induced hyperglycemia Is this a current diagnosis for this admission?: Yes Plan: * Although this patient has been requiring treatment with insulin for glucose control (albeit, with ongoing high-dose steroid therapy), it is noted that this patient has no history of diabetes. * Of note, hemoglobin A1c 6.0% (04/13, recheck 04/14). * Continue Lantus and sliding scale insulin. * Wean steroids as tolerated. (5) Normocytic anemia Is this a current diagnosis for this admission?: Yes (6) Leukocytosis Qualifiers: Leukocytosis type: unspecified Qualified Code(s): D72.829 - Elevated white blood cell count, unspecified Is this a current diagnosis for this admission?: Yes (7) Schizophrenia Qualifiers: Schizophrenia type: unspecified Qualified Code(s): F20.9 - Schizophrenia, unspecified Is this a current diagnosis for this admission?: Yes (8) Staphylococcus aureus bacteremia Is this a current diagnosis for this admission?: Yes (9) Staphylococcal pneumonia Is this a current diagnosis for this admission?: Yes Critical Time Critical Time (minutes): 45 Level of Care: ICU -: 1. The care of a critical patient is a dynamic process. This note is a sales representative cash registers synopsis but static in nature. The timeframe for treatments given in order is not necessarily the actual time these treatments may have been done. 2. This patient requires critical care secondary to ongoing requirements for therapy not offered or safe outside the critical care environment. Transfer to a lower level of care will result in altered life or limb morbidity and mortality. 3. Multidisciplinary rounds completed. 4. ABCDE bundle addressed.
[2020-05-15] MEDS: ACETAMINOPHEN SOLN 325 MG/10.15 ML UDCUP PO PRN (18:06)
[2020-05-15] MEDS: HEPARIN SODIUM,PORCINE/D5W 25,000 UNIT/250 ML RTUINJ IV PRN (19:53)
[2020-05-15] MEDS ORDERED: TOBRAMYCIN SULFATE INJ 80 MG/2 ML VIAL NEB SCH (20:00)
[2020-05-15] MEDS: TOBRAMYCIN SULFATE NEB 40 MG/ML 30 ML NEB SCH (20:31)
[2020-05-15] MEDS: MEROPENEM 500 MG in NORMAL SALINE 50 ML IV SCH (21:30)
[2020-05-15] MEDS ORDERED: POTASSIUM CHLORIDE 20 MEQ PACKET PO ONE (21:30)
[2020-05-15] MEDS: LABETALOL HCL INJ 20 MG/4 ML DISP.SYRIN IV PRN (21:33)
[2020-05-15] MEDS: MELATONIN 5 MG TABLET NG SCH (21:33)
[2020-05-16] MEDS: HYDROCOD/ACETAMIN 7.5-325 MG/15 ML ORAL SOLN UDCUP PO SCH ×4 (00:59→17:59)
[2020-05-16] MEDS: LORAZEPAM 1 MG TABLET NG SCH ×4 (00:59→17:58)
[2020-05-16] MEDS: QUETIAPINE FUMARATE 25 MG TABLET NG SCH ×4 (00:59→17:58)
[2020-05-16] MEDS: INSULIN REG, HUMAN 100 UNIT/ML 3 ML VIAL (PYX) SUBCUT SCH ×6 (03:51→21:49)
[2020-05-16] MEDS: MEROPENEM 500 MG in NORMAL SALINE 50 ML IV SCH ×3 (03:51→18:00)
[2020-05-16 04:10] LABS: ARTERIAL BLOOD BASE EXCESS 7.8 mmol/L; ARTERIAL BLOOD H2CO3 1.48 mmol/L (1.05-1.35); ARTERIAL BLOOD O2 SATURATION 86.3 % (94-98); ARTERIAL BLOOD PCO2 49.2 mmHg (35-45); ARTERIAL BLOOD PH 7.44 (7.35-7.45); ARTERIAL BLOOD PO2 49.9 mmHg (80-100); ARTERIAL BLOOD TOTAL CO2 34.5 mmol/L (21-25)
[2020-05-16 04:11] LABS: HEMATOCRIT 28.3 % (36.0-47.0); HEMOGLOBIN 9.1 g/dL (12.0-15.5); MEAN CORPUSCULAR HEMOGLOBIN 27.6 pg (27.0-33.4); MEAN CORPUSCULAR HGB CONC 32.1 g/dL (32.0-36.0); MEAN CORPUSCULAR VOLUME 86 fl (80-97); PLATELET COUNT 266 10^3/uL (150-450); RED CELL DISTRIBUTION WIDTH 20.9 % (11.5-14.0); WHITE BLOOD COUNT 18.2 10^3/uL (4.0-10.5)
[2020-05-16 04:12] LABS: ARTERIAL BLOOD FIO2 100%
[2020-05-16 04:50] LABS: ANION GAP 9 (5-19); BLOOD UREA NITROGEN 42 mg/dL (7-20); CALCIUM 9.7 mg/dL (8.4-10.2); CARBON DIOXIDE 36 mmol/L (22-30); CHLORIDE 92 mmol/L (98-107); GLUCOSE 177 mg/dL (75-110); PHOSPHORUS 3.6 mg/dL (2.5-4.5); POTASSIUM 3.4 mmol/L (3.6-5.0)
[2020-05-16] MEDS: ALBUTEROL SULFATE 0.083% NEB 2.5 MG/3 ML AMPUL NEB PRN (08:40)
[2020-05-16] MEDS: BUDESONIDE NEB 0.25 MG/2 ML AMPUL NEB SCH ×2 (08:40→20:58)
[2020-05-16] MEDS: TOBRAMYCIN SULFATE NEB 40 MG/ML 30 ML NEB SCH ×2 (08:40→20:58)
[2020-05-16] MEDS: INSULIN GLARGINE,HUM.REC.ANLOG 1,000 UNIT/10 ML VIAL SUBCUT SCH ×2 (10:39→21:50)
[2020-05-16] MEDS: FAMOTIDINE INJ/PF 20 MG/2 ML SDV IV SCH ×2 (10:40→21:50)
[2020-05-16] MEDS: AMINO AC/PROTEIN HYDR/WHEY PRO 11 GM/45 ML PKT NG SCH ×3 (10:41→17:59)
[2020-05-16] MEDS: LINEZOLID 600 MG/300 ML RTUPB IV SCH ×2 (10:41→21:49)
[2020-05-16] MEDS: METHYLPREDNISOLONE INJ 40 MG/1 ML SDV IV SCH ×3 (10:46→11:48)
[2020-05-16] MEDS: FUROSEMIDE INJ/PF 40 MG/4 ML SDV IV SCH ×3 (10:47→21:50)
[2020-05-16] MEDS: HEPARIN SODIUM,PORCINE/D5W 25,000 UNIT/250 ML RTUINJ IV PRN (11:00)
[2020-05-16] MEDS: CARVEDILOL 3.125 MG TABLET NG SCH ×2 (14:30→21:50)
--- NOTE | 2020-05-16 14:30 | RADIOLOGY REPORT (SQ) ---
EXAM DESCRIPTION: CHEST SINGLE VIEW IMAGES COMPLETED DATE/TIME: 05/16/2020 1:52 pm REASON FOR STUDY: acute hypoxia COMPARISON: 05/15/2020 EXAM PARAMETERS: NUMBER OF VIEWS: One view. TECHNIQUE: Single frontal radiographic view of the chest acquired. RADIATION DOSE: NA LIMITATIONS: None. FINDINGS: LUNGS AND PLEURA: Slightly ill-defined bilateral infiltrates. No focal consolidation. No significant interval change. MEDIASTINUM AND HILAR STRUCTURES: No masses. Contour normal. HEART AND VASCULAR STRUCTURES: Cardiomegaly. No zuleima pulmonary edema. BONES: No acute findings. HARDWARE: Tracheostomy tube. NG tube extends to the stomach. Right IJV catheter has its tip in the superior vena cava near the right atrium. OTHER: No other significant finding. IMPRESSION: No significant interval change. Bilateral ill-defined infiltrates. TECHNICAL DOCUMENTATION: JOB ID: [id number] 2010 [employer]- All Rights Reserved Reading location - IP/workstation name: [email or web address]
[2020-05-16 15:05] LABS: ARTERIAL BLOOD BASE EXCESS 11.1 mmol/L; ARTERIAL BLOOD HCO3 35.5 mmol/L (20-24); ARTERIAL BLOOD O2 SATURATION 89.3 % (94-98); ARTERIAL BLOOD PCO2 46.4 mmHg (35-45); ARTERIAL BLOOD PO2 51.9 mmHg (80-100); ARTERIAL BLOOD TOTAL CO2 36.9 mmol/L (21-25)
[2020-05-16 15:08] LABS: ARTERIAL BLOOD FIO2 100%
[2020-05-16] MEDS: ACETAMINOPHEN SOLN 325 MG/10.15 ML UDCUP PO PRN (16:17)
--- NOTE | 2020-05-16 19:03 | PDOC CRITICAL CARE PROG REPORT ---
General Date:: 05/16/20 ICU Day:: 45 Ventilator Day:: 45 - Achy ostomy 05/08/2020 Hospital Day:: 55 Resuscitation Status: Full Code Events in the past 12 to 24 Hours:: This 44-year-old -[place] female presented to [facility] emergency department on 03/21/2020 with complaints of possible presyncope versus syncope in addition to fever, chills, productive cough, dyspnea and exertional dyspnea. She has a history of psychiatric disorders and is known to be a difficult historian. Nonetheless, the patient also was known to have been diagnosed with COVID-19 pneumonia on 03/17/2020 and had subsequently been evaluated in the emergency department. She was apparently discharged home with prescriptions for azithromycin and other medications for symptomatic treatment. She returned with worsening shortness of breath and newly demonstrating supplemental oxygen requirement. 04/09-04/10: Remains intubated. Sedated with Precedex/Versed/fentanyl. On pressure control mode with peak and plateau pressures in the 40s. On insulin infusion for glucose control. On Glucerna + Prosource. KUB obtained showed a gasless abdomen, incongruent with physical exam (possibly due to morbid obesity). Still no BM. 04/11-: Had brisk diuresis with furosemide 40 mg IV single dose (2600 mL urine output), which resulted in a decrease in CVP. However, CVP is now back up to 910. On PRVC mode. ABG this a.m.: 7.46/46/53. Creatinine 0.6. WBC 17.3>11.4. Still no BM. On Versed/fentanyl/Precedex for sedation. Opens eyes to physical stimuli. Tube feeding currently on hold due to high residuals. Of note, even in the absence of tube feeding, the patient is having gastric residuals in the 200s. She does demonstrate spontaneous eye opening. She does not follow commands. 04/13-: Switched to BiVENT/APRV on 04/12/2020 (FiO2 80%, P high 17, T high 9.5 seconds, P low 3, T low 0.5 seconds). ABG this a.m.: 7.42/50/72. Off insulin infusion. Overnight, the patient had an episode of hypoglycemia (40) despite being on trickle tube feeds. Blood cultures (12/4) isolated gram-positive cocci in clusters. Tracheal aspirate (04/13) isolated Staphylococcus aureus. GPC is MSSA sens to rocephin. Still unsure if it's a contaminate. No progress made on ventilator. Changed back to PRVC on 04/16. Still 100% and PEEP 14. 04/18: CXR looks better. Will try weaning today. FiO2 first. 04/19-: Not able to wean yesterday. O2 saturations 95-96%. Will wean PEEP. Down to 10 in effort to lower PEEP for trach which I believe she will need. No weaning on drips yet. Will need trach and PEG. O2 saturations worse, in mid to low 80s on 100%. Talked with Dr. Owen regarding need for trach next week. 04/23: Remains intubated. On rocuronium, Versed and fentanyl infusions. FiO2 95%. PRVC. WBC 13.6. D-dimer 3.14. CRP 59.1. Magnesium 1.5. 04/24: Rocuronium was discontinued yesterday. The patient's ventilator mode was switched to BiVENT. Versed changed to propofol. Still on fentanyl. On BiVENT. Langston sedated. 04/25: Yesterday afternoon, she developed acute hypoxemic decompensation followed by profound hypotension. Clinically, this was highly suspicious for pulmonary embolism. She was started on heparin infusion. SVO2 was found to be 15%. She was started on dobutamine. Ventilator settings were changed. She is still on BiVENT/APRV but now with settings that closely mimic inverse I:E pressure control ventilation. FiO2 100%. P high 20, P low 10, T high 1.5, T low 0.5. 04/26: COVID-19 (HUGH from 04/23) finally returned to negative result. Dobutamine changed to milrinone yesterday. Still on BiVENT/APRV but has been tolerating lower pressures in longer T high times. Had an episode of oxygen desaturation again this morning. Clinically, it appears that she is having increased secretions from the airway, possibly with mucous plugging. Settings were changed subsequent to oxygen desaturation: P high 30, P low 10, T high 1.5, T low 0.5. ABG this a.m.: 7.36/51/69. Diuresing, -869 mL yesterday. proBNP 5880. BM +. 04/27: Langston sedated, synchronous with ventilator. BG this a.m. 7.28/64/78. WBC 25.8 this AM. CRP 200. D-dimer 2.04. 04/28: WBC down to 25.8>14.8 this AM. Not on antibiotics. However, hemoglobin also dropped to 6.6. Repeat hemoglobin 6.2. No obvious blood loss. Blood urine and tracheal aspirate cultures from 04/27 pending. On propofol/Precedex/fentanyl. Triglycerides 183. 04/29: Febrile (T-max 24-hour 102.7 Fahrenheit), reportedly refractory to Tylenol and cooling blanket. WBC 28.3. Hemoglobin 6.2>9 after transfusion of 2 units PRBC yesterday. Started on vancomycin overnight due to gram-positive cocci in trach aspirate (04/27), which are now being reported as MRSA. Also, blood cultures (1 of 2) are growing out Staphylococcus species, possibly a contaminant. Still on propofol/Precedex/fentanyl for sedation. Started Versed overnight as well. On BiVENT/APRV: P high 20, P low 3, T high 5.5, T low 0.5. + PSV 15. 04/30: Bun/Cr slightly up. Vancomycin stopped. Linezolid started. Off propofol, may have had propofol infusion syndrome. 05/01: Only small changes in vent made as tolerated. 05/02: Decrease in H/H today, likely anemia of chronic disease. No apparent signs of bleeding. I was able to lower her inspiratory time (PEEP high) slightly without any significant change in SPO2. Her FiO2 was also decreased to 90%. No other significant changes. Plan will be to consult surgery for tracheostomy placement. 05/03/2020: Small incremental changes made on the ventilator today. FiO2 weaned slightly. No other significant changes. 05/04/2020: Patient has had a small bit of progress with weaning her FiO2. We will continue as tolerated and make attempts to wean her bilevel as well today. 05/05/2020: No significant changes over the past 24 hours. Patient has been saturating well with 80 to 90% FiO2. Overall plan today is to continue to wean. Patient will need tracheostomy tube. 05/06: Overall no major change. Has been seen by Dr. Manriquez regarding need for trach 05/05. 05/07: Plan for tracheostomy on 05/08. 05/08: Patient underwent uneventful tracheostomy today. 05/09: Starting to come down on sedation. 05/10: Off versed. May have to increase fentanyl. 05/11: Not able to make changes to vent. Not awakening off versed. 05/12: Seems to be calmer with addition of seroquel, although to early to tell. 05/13: Still having intermittent agitation. Seems less. 05/14: Off Precedex infusion this morning. On Ativan and Lortab per NG tube, tapering. Waking up. Follows commands. Mouthing words over ET tube. Occasional cough. Purulent secretions noted from the tracheostomy site. Still on BiVENT (P high 30, P low 10, T high 1.2, T low 0.8 + PSV 10). On cefepime/linezolid for trach aspirate (05/09) isolating E cloacae and S. aureus and MRSA bacteremia (05/09). T-max 100.6 today. 05/15: Continues to be febrile. On cefepime/Zyvox. WBC 22.2. Cultures pending, but it appears preliminary results suggest trach aspirate is isolating gram- negative rods. K 2.6 this morning. 05/16: Afebrile this morning with overall downward trend in temperature curve overnight. Started on meropenem and GINO nebs for gram-negative coverage. Trach wound is isolating Enterobacter cloacae in addition to gram-positive cocci in chains. WBC 22.2>18.2. Mentating well. Follows some commands, hindered by generalized weakness. Review of systems relevant to events:: Pulmonary, neurologic. Reason for ICU Addmission:: acute respiratory failure, covid -19 pneumonia, Has trach, on vent. - Medications: Medications reviewed and adjusted accordingly: Yes Vasopressors:: None Sedation:: Precedex Physical Exam Vital Signs: Temp Pulse Resp BP Pulse Ox 98.8 F 97 33 H 114/69 79 L 05/16/20 11:44 05/16/20 08:40 05/16/20 12:30 05/16/20 11:51 05/16/20 12:30 Intake & Output 05/15/20 05/16/20 05/17/20 06:59 06:59 06:59 Intake Total 7070 1577 587 Output Total 1872 5350 300 Balance -907 -1303 287 Weight 138.1 kg 133.9 kg Weight/Height Weight 133.9 kg Height 1.6 m General appearance: PRESENT: no acute distress, morbidly obese, well-developed, well-nourished Head exam: PRESENT: atraumatic, normocephalic Eye exam: PRESENT: conjunctiva pink, EOMI, PERRLA. ABSENT: scleral icterus Mouth exam: PRESENT: moist, tongue midline Neck exam: PRESENT: tracheostomy. ABSENT: carotid bruit, JVD, lymphadenopathy, thyromegaly Respiratory exam: PRESENT: clear to auscultation reji, symmetrical, tachypnea. ABSENT: rales, rhonchi, wheezes Cardiovascular exam: PRESENT: RRR, tachycardia. ABSENT: diastolic murmur, rubs, systolic murmur Pulses: PRESENT: normal dorsalis pedis pul GI/Abdominal exam: PRESENT: normal bowel sounds, soft. ABSENT: distended, guarding, mass, organolmegaly, rebound, tenderness Extremities exam: PRESENT: full ROM, pedal edema, +2 edema. ABSENT: calf tenderness, clubbing Neurological exam: PRESENT: alert, awake, CN II-XII grossly intact, motor sensory deficit - Moves both feet on command. Bilateral upper extremity motor 1+.. ABSENT: aphasic Psychiatric exam: ABSENT: agitated, anxious Tubes/Lines: PRESENT: Central Line - Right IJ, Nasogastic Tube Laboratory/Radiographs Laboratory Results: 05/16/20 03:40 05/16/20 03:40 05/15/20 05/16/20 05/16/20 17:45 03:40 03:40 WBC 18.2 H RBC 3.30 L Hgb 9.1 L Hct 28.3 L MCV 86 MCH 27.6 MCHC 32.1 RDW 20.9 H Plt Count 266 Carbonic Acid HCO3/H2CO3 Ratio ABG pH ABG pCO2 ABG pO2 ABG HCO3 ABG O2 Saturation ABG Base Excess FiO2 Sodium 137.3 Potassium 3.5 L 3.4 L Chloride 92 L Carbon Dioxide 36 H Anion Gap 9 BUN 42 H Creatinine 0.59 Est GFR ( Amer) > 60 Glucose 177 H Calcium 9.7 Phosphorus 3.6 Magnesium 1.7 05/16/20 03:40 WBC RBC Hgb Hct MCV MCH MCHC RDW Plt Count Carbonic Acid 1.48 H HCO3/H2CO3 Ratio 22:1 ABG pH 7.44 ABG pCO2 49.2 H ABG pO2 49.9 L ABG HCO3 33.0 H ABG O2 Saturation 86.3 L ABG Base Excess 7.8 FiO2 100% Sodium Potassium Chloride Carbon Dioxide Anion Gap BUN Creatinine Est GFR ( Amer) Glucose Calcium Phosphorus Magnesium 05/14/20 15:20 Trach Site Gram Stain - Final 05/14/20 15:20 Fernandez Catheter Urine Culture - Final NO GROWTH 2 DAYS 03/21/20 04/11/20 04/14/20 21:58 03:05 01:59 Creatine Kinase Troponin I < 0.012 NT-Pro-B Natriuret Pep 192 H 184 H 04/24/20 04/25/20 04/26/20 14:18 09:01 03:53 Creatine Kinase Troponin I 0.012 NT-Pro-B Natriuret Pep 7620 H 5880 H 04/30/20 03:50 Creatine Kinase 301 H Troponin I NT-Pro-B Natriuret Pep Impressions: Abdomen Ultrasound 04/10/20 00:00 IMPRESSION: NO EVIDENCE FOR ASCITES. KUB X-Ray 04/29/20 00:00 IMPRESSION: NG tube is present with side port and tip overlying the body of the stomach. Chest X-Ray 05/15/20 05:00 IMPRESSION: NO SIGNIFICANT INTERVAL CHANGE. All labs, radiographs, diagnostic studies and EKGs were personally reviewed: Yes In addition, reports of radiographic and diagnostic studies were read: Yes Assessment and Plan - Diagnosis (1) Acute respiratory failure with hypoxia and hypercapnia Is this a current diagnosis for this admission?: Yes Plan: * Diurese. * Will try changing to PRVC, in anticipation of transfer to LTAC/vent weaning facility. * Follow up vent settings changes with ABG results. * PT/OT consult. (2) Fever Qualifiers: Encounter type: initial encounter Is this a current diagnosis for this admission?: Yes Plan: * Continue meropenem/GINO. * Continue linezolid. * Follow-up cultures. * Continue Tylenol as needed. (3) Pneumonia due to COVID-19 virus Is this a current diagnosis for this admission?: Yes Plan: This is likely the cause of her pulmonary and neurological condition. Testing is negative. (4) Hypertension Qualifiers: Hypertension type: unspecified Qualified Code(s): I10 - Essential (primary) hypertension Is this a current diagnosis for this admission?: Yes Plan: * Coreg 3.125 mg NG twice daily. * Continue labetalol IV as needed. (5) Steroid-induced hyperglycemia Is this a current diagnosis for this admission?: Yes Plan: * Although this patient has been requiring treatment with insulin for glucose control (albeit, with ongoing high-dose steroid therapy), it is noted that this patient has no history of diabetes. * Of note, hemoglobin A1c 6.0% (04/13, recheck 04/14). * Continue Lantus and sliding scale insulin. * Wean steroids as tolerated. (6) Normocytic anemia Is this a current diagnosis for this admission?: Yes (7) Leukocytosis Qualifiers: Leukocytosis type: unspecified Qualified Code(s): D72.829 - Elevated white blood cell count, unspecified Is this a current diagnosis for this admission?: Yes Plan: * Improving on current antibiotic treatment. (8) Schizophrenia Qualifiers: Schizophrenia type: unspecified Qualified Code(s): F20.9 - Schizophrenia, unspecified Is this a current diagnosis for this admission?: Yes (9) Staphylococcus aureus bacteremia Is this a current diagnosis for this admission?: Yes (10) Staphylococcal pneumonia Is this a current diagnosis for this admission?: Yes Critical Time Critical Time (minutes): 60 Level of Care: ICU -: 1. The care of a critical patient is a dynamic process. This note is a risk control representative synopsis but static in nature. The timeframe for treatments given in order is not necessarily the actual time these treatments may have been done. 2. This patient requires critical care secondary to ongoing requirements for therapy not offered or safe outside the critical care environment. Transfer to a lower level of care will result in altered life or limb morbidity and mortality. 3. Multidisciplinary rounds completed. 4. ABCDE bundle addressed.
[2020-05-16] MEDS: MELATONIN 5 MG TABLET NG SCH (21:50)
[2020-05-17] MEDS: HYDROCOD/ACETAMIN 7.5-325 MG/15 ML ORAL SOLN UDCUP PO SCH ×4 (00:45→17:22)
[2020-05-17] MEDS: QUETIAPINE FUMARATE 25 MG TABLET NG SCH ×5 (00:45→23:17)
[2020-05-17] MEDS: LORAZEPAM 1 MG TABLET NG SCH ×6 (00:45→23:18)
[2020-05-17] MEDS: HEPARIN SODIUM,PORCINE/D5W 25,000 UNIT/250 ML RTUINJ IV PRN ×2 (01:15→17:27)
[2020-05-17] MEDS: INSULIN REG, HUMAN 100 UNIT/ML 3 ML VIAL (PYX) SUBCUT SCH ×6 (03:43→22:54)
[2020-05-17] MEDS: MEROPENEM 500 MG in NORMAL SALINE 50 ML IV SCH ×3 (03:43→17:22)
[2020-05-17 04:54] LABS: HEMOGLOBIN 8.9 g/dL (12.0-15.5); MEAN CORPUSCULAR HEMOGLOBIN 28.6 pg (27.0-33.4); MEAN CORPUSCULAR VOLUME 87 fl (80-97); RED BLOOD COUNT 3.11 10^6/uL (3.72-5.28); RED CELL DISTRIBUTION WIDTH 20.9 % (11.5-14.0)
[2020-05-17 04:56] LABS: ARTERIAL BLOOD BASE EXCESS 11.2 mmol/L; ARTERIAL BLOOD HCO3 36.2 mmol/L (20-24); ARTERIAL BLOOD O2 SATURATION 92.4 % (94-98); ARTERIAL BLOOD PCO2 49.9 mmHg (35-45); ARTERIAL BLOOD PH 7.48 (7.35-7.45); ARTERIAL BLOOD PO2 60.6 mmHg (80-100); ARTERIAL BLOOD TOTAL CO2 37.7 mmol/L (21-25)
[2020-05-17 05:02] LABS: ARTERIAL BLOOD FIO2 100%
[2020-05-17 05:19] LABS: D-DIMER 1.56 ug/mL (0.00-0.50)
[2020-05-17 05:28] LABS: ANION GAP 8 (5-19); BLOOD UREA NITROGEN 48 mg/dL (7-20); C-REACTIVE PROTEIN 36.3 mg/L (<10.0); CALCIUM 9.8 mg/dL (8.4-10.2); CARBON DIOXIDE 39 mmol/L (22-30); CHLORIDE 90 mmol/L (98-107); GLUCOSE 160 mg/dL (75-110)
[2020-05-17 06:04] LABS: PLATELET COUNT 233 10^3/uL (150-450)
[2020-05-17] MEDS: ALBUTEROL SULFATE 0.083% NEB 2.5 MG/3 ML AMPUL NEB PRN (07:42)
[2020-05-17] MEDS: TOBRAMYCIN SULFATE NEB 40 MG/ML 30 ML NEB SCH ×2 (07:42→20:32)
[2020-05-17] MEDS: BUDESONIDE NEB 0.25 MG/2 ML AMPUL NEB SCH ×2 (07:42→20:32)
[2020-05-17] MEDS: AMINO AC/PROTEIN HYDR/WHEY PRO 11 GM/45 ML PKT NG SCH ×3 (09:21→17:22)
[2020-05-17] MEDS: CARVEDILOL 3.125 MG TABLET NG SCH ×2 (09:22→22:55)
[2020-05-17] MEDS: FAMOTIDINE INJ/PF 20 MG/2 ML SDV IV SCH ×2 (09:23→22:54)
[2020-05-17] MEDS: METHYLPREDNISOLONE INJ 40 MG/1 ML SDV IV SCH (09:23)
[2020-05-17] MEDS: FUROSEMIDE INJ/PF 40 MG/4 ML SDV IV SCH ×2 (09:23→22:54)
[2020-05-17] MEDS ORDERED: POTASSIUM CHLORIDE 20 MEQ PACKET PO ONE (09:45)
[2020-05-17] MEDS: INSULIN GLARGINE,HUM.REC.ANLOG 1,000 UNIT/10 ML VIAL SUBCUT SCH ×2 (09:45→22:55)
[2020-05-17] MEDS: MAGNESIUM SULFATE/D5W 1 GM/100 ML RTUPB IV SCH ×2 (09:55→11:37)
[2020-05-17] MEDS: POTASSI CL 20 MEQ/50 ML RIDER 20 MEQ/50 ML RTUPB IV SCH ×2 (09:59→11:37)
[2020-05-17] MEDS: LINEZOLID 600 MG/300 ML RTUPB IV SCH ×2 (10:28→22:55)
[2020-05-17] MEDS: ACETAMINOPHEN SOLN 325 MG/10.15 ML UDCUP PO PRN (17:21)
[2020-05-17] MEDS: 1/2 NORMAL SALINE 1,000 ML with POTASSIUM CHLORIDE 40 MEQ IV PRN ×2 (17:23)
--- NOTE | 2020-05-17 17:59 | PDOC CRITICAL CARE PROG REPORT ---
General Date:: 05/17/20 ICU Day:: 46 Ventilator Day:: 46 - Tracheostomy 05/08/2020 Hospital Day:: 56 Resuscitation Status: Full Code Events in the past 12 to 24 Hours:: This 44-year-old -[place] female presented to [facility] emergency department on 03/21/2020 with complaints of possible presyncope versus syncope in addition to fever, chills, productive cough, dyspnea and exertional dyspnea. She has a history of psychiatric disorders and is known to be a difficult historian. Nonetheless, the patient also was known to have been diagnosed with COVID-19 pneumonia on 03/17/2020 and had subsequently been evaluated in the emergency department. She was apparently discharged home with prescriptions for azithromycin and other medications for symptomatic treatment. She returned with worsening shortness of breath and newly demonstrating supplemental oxygen requirement. 04/09-04/10: Remains intubated. Sedated with Precedex/Versed/fentanyl. On pressure control mode with peak and plateau pressures in the 40s. On insulin infusion for glucose control. On Glucerna + Prosource. KUB obtained showed a gasless abdomen, incongruent with physical exam (possibly due to morbid obesity). Still no BM. 04/11-: Had brisk diuresis with furosemide 40 mg IV single dose (2600 mL urine output), which resulted in a decrease in CVP. However, CVP is now back up to 910. On PRVC mode. ABG this a.m.: 7.46/46/53. Creatinine 0.6. WBC 17.3>11.4. Still no BM. On Versed/fentanyl/Precedex for sedation. Opens eyes to physical stimuli. Tube feeding currently on hold due to high residuals. Of note, even in the absence of tube feeding, the patient is having gastric residuals in the 200s. She does demonstrate spontaneous eye opening. She does not follow commands. 04/13-: Switched to BiVENT/APRV on 04/12/2020 (FiO2 80%, P high 17, T high 9.5 seconds, P low 3, T low 0.5 seconds). ABG this a.m.: 7.42/50/72. Off insulin infusion. Overnight, the patient had an episode of hypoglycemia (40) despite being on trickle tube feeds. Blood cultures (04/13) isolated gram-positive cocci in clusters. Tracheal aspirate (04/13) isolated Staphylococcus aureus. GPC is MSSA sens to rocephin. Still unsure if it's a contaminate. No progress made on ventilator. Changed back to PRVC on 04/16. Still 100% and PEEP 14. 04/18: CXR looks better. Will try weaning today. FiO2 first. 04/19-: Not able to wean yesterday. O2 saturations 95-96%. Will wean PEEP. Down to 10 in effort to lower PEEP for trach which I believe she will need. No weaning on drips yet. Will need trach and PEG. O2 saturations worse, in mid to low 80s on 100%. Talked with Dr. Owen regarding need for trach next week. 04/23: Remains intubated. On rocuronium, Versed and fentanyl infusions. FiO2 9 5%. PRVC. WBC 13.6. D-dimer 3.14. CRP 59.1. Magnesium 1.5. 04/24: Rocuronium was discontinued yesterday. The patient's ventilator mode was switched to BiVENT. Versed changed to propofol. Still on fentanyl. On BiVENT. Milmay sedated. 04/25: Yesterday afternoon, she developed acute hypoxemic decompensation followed by profound hypotension. Clinically, this was highly suspicious for pulmonary embolism. She was started on heparin infusion. SVO2 was found to be 15%. She was started on dobutamine. Ventilator settings were changed. She is still on BiVENT/APRV but now with settings that closely mimic inverse I:E pressure control ventilation. FiO2 100%. P high 20, P low 10, T high 1.5, T low 0.5. 04/26: COVID-19 (HUGH from 04/23) finally returned to negative result. Dobutamine changed to milrinone yesterday. Still on BiVENT/APRV but has been tolerating lower pressures in longer T high times. Had an episode of oxygen desaturation again this morning. Clinically, it appears that she is having increased secretions from the airway, possibly with mucous plugging. Settings w ere changed subsequent to oxygen desaturation: P high 30, P low 10, T high 1.5, T low 0.5. ABG this a.m.: 7.36/51/69. Diuresing, -869 mL yesterday. proBNP 5880. BM +. 04/27: Milmay sedated, synchronous with ventilator. BG this a.m. 7.28/64/78. WBC 25.8 this AM. CRP 200. D-dimer 2.04. 04/28: WBC down to 25.8>14.8 this AM. Not on antibiotics. However, hemoglobin also dropped to 6.6. Repeat hemoglobin 6.2. No obvious blood loss. Blood urine and tracheal aspirate cultures from 04/27 pending. On propofol/Precedex/fentanyl. Triglycerides 183. 04/29: Febrile (T-max 24-hour 102.7 Fahrenheit), reportedly refractory to Tylenol and cooling blanket. WBC 28.3. Hemoglobin 6.2>9 after transfusion of 2 units PRBC yesterday. Started on vancomycin overnight due to gram-positive cocci in trach aspirate (04/27), which are now being reported as MRSA. Also, blood cultures (1 of 2) are growing out Staphylococcus species, possibly a contaminant. Still on propofol/Precedex/fentanyl for sedation. Started Versed overnight as well. On BiVENT/APRV: P high 20, P low 3, T high 5.5, T low 0.5. + PSV 15. 04/30: Bun/Cr slightly up. Vancomycin stopped. Linezolid started. Off propofol, may have had propofol infusion syndrome. 05/01: Only small changes in vent made as tolerated. 05/02: Decrease in H/H today, likely anemia of chronic disease. No apparent signs of bleeding. I was able to lower her inspiratory time (PEEP high) slightly without any significant change in SPO2. Her FiO2 was also decreased to 90%. No other significant changes. Plan will be to consult surgery for tracheostomy placement. 05/03/2020: Small incremental changes made on the ventilator today. FiO2 weaned slightly. No other significant changes. 05/04/2020: Patient has had a small bit of progress with weaning her FiO2. We will continue as tolerated and make attempts to wean her bilevel as well today. 05/05/2020: No significant changes over the past 24 hours. Patient has been saturating well with 80 to 90% FiO2. Overall plan today is to continue to wean. Patient will need tracheostomy tube. 05/06: Overall no major change. Has been seen by Dr. Manriquez regarding need for trach 05/05. 05/07: Plan for tracheostomy on 05/08. 05/08: Patient underwent uneventful tracheostomy today. 05/09: Starting to come down on sedation. 05/10: Off versed. May have to increase fentanyl. 05/11: Not able to make changes to vent. Not awakening off versed. 05/12: Seems to be calmer with addition of seroquel, although to early to tell. 05/13: Still having intermittent agitation. Seems less. 05/14: Off Precedex infusion this morning. On Ativan and Lortab per NG tube, tapering. Waking up. Follows commands. Mouthing words over ET tube. Occasional cough. Purulent secretions noted from the tracheostomy site. Still on BiVENT (P high 30, P low 10, T high 1.2, T low 0.8 + PSV 10). On cefepime/linezolid for trach aspirate (05/09) isolating E cloacae and S. aureus and MRSA bacteremia (05/09). T-max 100.6 today. 05/15: Continues to be febrile. On cefepime/Zyvox. WBC 22.2. Cultures pending, but it appears preliminary results suggest trach aspirate is isolating gram- negative rods. K 2.6 this morning. 05/16: Afebrile this morning with overall downward trend in temperature curve overnight. Started on meropenem and GINO nebs for gram-negative coverage. Trach wound is isolating Enterobacter cloacae in addition to gram-positive cocci in chains. WBC 22.2>18.2. Mentating well. Follows some commands, hindered by generalized weakness. 05/17: Febrile this morning (afebrile since 1800 yesterday). On meropenem/GINO for gram-negative coverage. Also on Zyvox. Trach wound isolated Enterobacter cloacae and Staph aureus. WBC 18.2>20. Review of systems relevant to events:: Pulmonary, neurologic. Reason for ICU Addmission:: acute respiratory failure, covid -19 pneumonia, Has trach, on vent. - Medications: Medications reviewed and adjusted accordingly: Yes Vasopressors:: None Sedation:: Precedex Physical Exam Vital Signs: Temp Pulse Resp BP Pulse Ox 99.7 F 111 H 27 H 141/119 H 95 05/17/20 08:00 05/17/20 08:00 05/17/20 08:00 05/17/20 08:00 05/17/20 08:00 Intake & Output 05/16/20 05/17/20 05/18/20 06:59 06:59 06:59 Intake Total 1577 1632 Output Total 2880 3130 65 Balance -1303 -1498 -65 Weight 133.9 kg 137 kg Weight/Height Weight 137 kg Height 1.6 m General appearance: PRESENT: no acute distress, morbidly obese, well-developed, well-nourished Head exam: PRESENT: atraumatic, normocephalic Eye exam: PRESENT: conjunctiva pink, EOMI, PERRLA. ABSENT: scleral icterus Mouth exam: PRESENT: moist, tongue midline Neck exam: PRESENT: tracheostomy. ABSENT: carotid bruit, JVD, lymphadenopathy, thyromegaly Respiratory exam: PRESENT: clear to auscultation reji. ABSENT: rales, rhonchi, wheezes Cardiovascular exam: PRESENT: RRR, tachycardia. ABSENT: diastolic murmur, rubs, systolic murmur Pulses: PRESENT: normal dorsalis pedis pul GI/Abdominal exam: PRESENT: normal bowel sounds, soft. ABSENT: distended, guarding, mass, organolmegaly, rebound, tenderness Gentrourinary exam: PRESENT: indwelling catheter Extremities exam: PRESENT: full ROM, pedal edema, +2 edema. ABSENT: calf tenderness, clubbing Neurological exam: PRESENT: alert, awake, CN II-XII grossly intact. ABSENT: reflexes normal, motor sensory deficit Psychiatric exam: ABSENT: agitated, anxious Tubes/Lines: PRESENT: Central Line - R IJ, Nasogastic Tube Laboratory/Radiographs Laboratory Results: 05/17/20 04:29 05/17/20 04:29 05/16/20 05/17/20 05/17/20 14:35 04:29 04:29 WBC 20.0 H RBC 3.11 L Hgb 8.9 L Hct 27.0 L MCV 87 MCH 28.6 MCHC 33.0 RDW 20.9 H Plt Count 233 Carbonic Acid 1.40 H HCO3/H2CO3 Ratio 25:1 ABG pH 7.50 H ABG pCO2 46.4 H ABG pO2 51.9 L ABG HCO3 35.5 H ABG O2 Saturation 89.3 L ABG Base Excess 11.1 FiO2 100% Sodium 137.1 Potassium 3.0 L* Chloride 90 L Carbon Dioxide 39 H Anion Gap 8 BUN 48 H Creatinine 0.61 Est GFR ( Amer) > 60 Glucose 160 H Calcium 9.8 Magnesium 1.7 C-Reactive Protein 36.3 H 05/17/20 04:29 WBC RBC Hgb Hct MCV MCH MCHC RDW Plt Count Carbonic Acid 1.50 H HCO3/H2CO3 Ratio 24:1 ABG pH 7.48 H ABG pCO2 49.9 H ABG pO2 60.6 L ABG HCO3 36.2 H ABG O2 Saturation 92.4 L ABG Base Excess 11.2 FiO2 100% Sodium Potassium Chloride Carbon Dioxide Anion Gap BUN Creatinine Est GFR ( Amer) Glucose Calcium Magnesium C-Reactive Protein 05/14/20 15:20 Trach Site Gram Stain - Final 05/14/20 15:20 Trach Site Wound Culture - Final Enterobacter Cloacae Staphylococcus Aureus 05/14/20 15:20 Fernandez Catheter Urine Culture - Final NO GROWTH 2 DAYS 03/21/20 04/11/20 04/14/20 21:58 03:05 01:59 Creatine Kinase Troponin I < 0.012 NT-Pro-B Natriuret Pep 192 H 184 H 04/24/20 04/25/20 04/26/20 14:18 09:01 03:53 Creatine Kinase Troponin I 0.012 NT-Pro-B Natriuret Pep 7620 H 5880 H 04/30/20 03:50 Creatine Kinase 301 H Troponin I NT-Pro-B Natriuret Pep Impressions: Abdomen Ultrasound 04/10/20 00:00 IMPRESSION: NO EVIDENCE FOR ASCITES. KUB X-Ray 04/29/20 00:00 IMPRESSION: NG tube is present with side port and tip overlying the body of the stomach. Chest X-Ray 05/16/20 13:33 IMPRESSION: No significant interval change. Bilateral ill-defined infiltrates. Assessment and Plan - Diagnosis (1) Acute respiratory failure with hypoxia and hypercapnia Is this a current diagnosis for this admission?: Yes Plan: * Diurese. * Will try PC f 16, Pi 14+PEEP, PEEP 16. Wean PEEP as tolerated. * Follow up vent settings changes with ABG results. (2) Fever Qualifiers: Encounter type: initial encounter Is this a current diagnosis for this admission?: Yes Plan: * Continue meropenem/GINO. * Continue linezolid. * Follow-up cultures. * Continue Tylenol as needed. (3) Pneumonia due to COVID-19 virus Is this a current diagnosis for this admission?: Yes Plan: * COVID-negative on 04/23 (4) Hypertension Qualifiers: Hypertension type: unspecified Qualified Code(s): I10 - Essential (primary) hypertension Is this a current diagnosis for this admission?: Yes (5) Steroid-induced hyperglycemia Is this a current diagnosis for this admission?: Yes Plan: * Although this patient has been requiring treatment with insulin for glucose control (albeit, with ongoing high-dose steroid therapy), it is noted that this patient has no history of diabetes. * Of note, hemoglobin A1c 6.0% (04/13, recheck 04/14). * Continue Lantus and sliding scale insulin. * Wean steroids as tolerated. (6) Normocytic anemia Is this a current diagnosis for this admission?: Yes (7) Leukocytosis Qualifiers: Leukocytosis type: unspecified Qualified Code(s): D72.829 - Elevated white blood cell count, unspecified Is this a current diagnosis for this admission?: Yes (8) Staphylococcus aureus bacteremia Is this a current diagnosis for this admission?: Yes Plan: * Continue linezolid. (9) Infection caused by Enterobacter cloacae Is this a current diagnosis for this admission?: Yes Plan: * On meropenem/GINO Critical Time Critical Time (minutes): 60 Level of Care: ICU -: 1. The care of a critical patient is a dynamic process. This note is a area representative synopsis but static in nature. The timeframe for treatments given in order is not necessarily the actual time these treatments may have been done. 2. This patient requires critical care secondary to ongoing requirements for therapy not offered or safe outside the critical care environment. Transfer to a lower level of care will result in altered life or limb morbidity and mo rtality. 3. Multidisciplinary rounds completed. 4. ABCDE bundle addressed.
[2020-05-17 18:25] LABS: ARTERIAL BLOOD BASE EXCESS 10.4 mmol/L; ARTERIAL BLOOD H2CO3 1.54 mmol/L (1.05-1.35); ARTERIAL BLOOD HCO3 35.5 mmol/L (20-24); ARTERIAL BLOOD O2 SATURATION 63.8 % (94-98); ARTERIAL BLOOD PH 7.46 (7.35-7.45); ARTERIAL BLOOD TOTAL CO2 37.1 mmol/L (21-25)
[2020-05-17 18:27] LABS: ARTERIAL BLOOD FIO2 100%
[2020-05-17] MEDS: HYDROCOD/ACETAMIN 7.5-325 MG/15 ML ORAL SOLN UDCUP NG SCH ×2 (20:25→23:17)
[2020-05-17] MEDS: MELATONIN 5 MG TABLET NG SCH (22:54)
[2020-05-18] MEDS: MEROPENEM 500 MG in NORMAL SALINE 50 ML IV SCH ×3 (02:45→17:13)
[2020-05-18] MEDS: INSULIN REG, HUMAN 100 UNIT/ML 3 ML VIAL (PYX) SUBCUT SCH ×6 (02:49→22:25)
[2020-05-18 04:29] LABS: ANION GAP 7 (5-19); BLOOD UREA NITROGEN 49 mg/dL (7-20); CALCIUM 9.6 mg/dL (8.4-10.2); CARBON DIOXIDE 38 mmol/L (22-30); CHLORIDE 91 mmol/L (98-107); GLUCOSE 141 mg/dL (75-110)
[2020-05-18] MEDS: QUETIAPINE FUMARATE 25 MG TABLET NG SCH ×3 (06:19→18:51)
[2020-05-18] MEDS: HYDROCOD/ACETAMIN 7.5-325 MG/15 ML ORAL SOLN UDCUP NG SCH ×3 (06:19→17:12)
[2020-05-18] MEDS: LORAZEPAM 1 MG TABLET NG SCH ×3 (06:19→17:14)
[2020-05-18] MEDS: 1/2 NORMAL SALINE 1,000 ML with POTASSIUM CHLORIDE 40 MEQ IV PRN ×2 (07:35)
[2020-05-18] MEDS: BUDESONIDE NEB 0.25 MG/2 ML AMPUL NEB SCH ×2 (08:03→20:08)
[2020-05-18] MEDS: TOBRAMYCIN SULFATE NEB 40 MG/ML 30 ML NEB SCH ×2 (08:04→20:07)
[2020-05-18] MEDS: ALBUTEROL SULFATE 0.083% NEB 2.5 MG/3 ML AMPUL NEB PRN ×2 (08:04→20:08)
[2020-05-18] MEDS ORDERED: HYDROMORPHONE HCL INJ/PF 2 MG/ML AMPULE ONE (09:09)
[2020-05-18] MEDS: HYDROMORPHONE HCL INJ/PF 2 MG/ML AMPULE IV PRN ×3 (09:10→17:13)
--- NOTE | 2020-05-18 09:28 | PDOC CRITICAL CARE PROG REPORT ---
General Date:: 05/18/20 ICU Day:: 46 Ventilator Day:: 46 Hospital Day:: 57 Resuscitation Status: Full Code Events in the past 12 to 24 Hours:: This 44-year-old -[place] female [facility]2020 with complaints of possible presyncope versus syncope in addition to fever, chills, productive cough, dyspnea and exertional dyspnea. She has a history of psychiatric disorders and is known to be a difficult historian. Nonetheless, the patient also was known to have been diagnosed with COVID-19 pneumonia on 03/17/2020 and had subsequently been evaluated in the emergency department. She was apparently discharged home with prescriptions for azithromycin and other medications for symptomatic treatment. She returned with worsening shortness of breath and newly demonstrating supplemental oxygen requirement. 04/09-04/10: Remains intubated. Sedated with Precedex/Versed/fentanyl. On pressure control mode with peak and plateau pressures in the 40s. On insulin infusion for glucose control. On Glucerna + Prosource. KUB obtained showed a gasless abdomen, incongruent with physical exam (possibly due to morbid obesity). Still no BM. 04/11-: Had brisk diuresis with furosemide 40 mg IV single dose (2600 mL urine output), which resulted in a decrease in CVP. However, CVP is now back up to 910. On PRVC mode. ABG this a.m.: 7.46/46/53. Creatinine 0.6. WBC 17.3>11.4. Still no BM. On Versed/fentanyl/Precedex for sedation. Opens eyes to physical stimuli. Tube feeding currently on hold due to high residuals. Of note, even in the absence of tube feeding, the patient is having gastric residuals in the 200s. She does demonstrate spontaneous eye opening. She does not follow commands. 04/13-: Switched to BiVENT/APRV on 04/12/2020 (FiO2 80%, P high 17, T high 9.5 seconds, P low 3, T low 0.5 seconds). ABG this a.m.: 7.42/50/72. Off insulin infusion. Overnight, the patient had an episode of hypoglycemia (40) despite being on trickle tube feeds. Blood cultures (04/13) isolated gram-positive cocci in clusters. Tracheal aspirate (04/13) isolated Staphylococcus aureus. GPC is MSSA sens to rocephin. Still unsure if it's a contaminate. No progress made on ventilator. Changed back to PRVC on 04/16. Still 100% and PEEP 14. 04/18: CXR looks better. Will try weaning today. FiO2 first. 04/19-: Not able to wean yesterday. O2 saturations 95-96%. Will wean PEEP. Down to 10 in effort to lower PEEP for trach which I believe she will need. No weaning on drips yet. Will need trach and PEG. O2 saturations worse, in mid to low 80s on 100%. Talked with Dr. Owen regarding need for trach next week. 04/23: Remains intubated. On rocuronium, Versed and fentanyl infusions. FiO2 95%. PRVC. WBC 13.6. D-dimer 3.14. CRP 59.1. Magnesium 1.5. 04/24: Rocuronium was discontinued yesterday. The patient's ventilator mode was switched to BiVENT. Versed changed to propofol. Still on fentanyl. On BiVENT. [facility] sedated. 04/25: Yesterday afternoon, she developed acute hypoxemic decompensation followed by profound hypotension. Clinically, this was highly suspicious for pulmonary embolism. She was started on heparin infusion. SVO2 was found to be 15%. She was started on dobutamine. Ventilator settings were changed. She is still on BiVENT/APRV but now with settings that closely mimic inverse I:E pressure control ventilation. FiO2 100%. P high 20, P low 10, T high 1.5, T low 0.5. 04/26: COVID-19 ([facility] from 04/23) finally returned to negative result. Dobutamine changed to milrinone yesterday. Still on BiVENT/APRV but has been tolerating lower pressures in longer T high times. Had an episode of oxygen desaturation again this morning. Clinically, it appears that she is having increased secretions from the airway, possibly with mucous plugging. Settings were changed subsequent to oxygen desaturation: P high 30, P low 10, T high 1.5, T low 0.5. ABG this a.m.: 7.36/51/69. Diuresing, -869 mL yesterday. proBNP 5880. BM +. 04/27: [facility] sedated, synchronous with ventilator. BG this a.m. 7.28/64/78. WBC 25.8 this AM. CRP 200. D-dimer 2.04. 04/28: WBC down to 25.8>14.8 this AM. Not on antibiotics. However, hemoglobin also dropped to 6.6. Repeat hemoglobin 6.2. No obvious blood loss. Blood urine and tracheal aspirate cultures from 04/27 pending. On propofol/Pre cedex/fentanyl. Triglycerides 183. 04/29: Febrile (T-max 24-hour 102.7 Fahrenheit), reportedly refractory to Tylenol and cooling blanket. WBC 28.3. Hemoglobin 6.2>9 after transfusion of 2 units PRBC yesterday. Started on vancomycin overnight due to gram-positive cocci in trach aspirate (04/27), which are now being reported as MRSA. Also, blood cultures (1 of 2) are growing out Staphylococcus species, possibly a contaminant. Still on propofol/Precedex/fentanyl for sedation. Started Versed overnight as well. On BiVENT/APRV: P high 20, P low 3, T high 5.5, T low 0.5. + PSV 15. 04/30: Bun/Cr slightly up. Vancomycin stopped. Linezolid started. Off propofol, may have had propofol infusion syndrome. 05/01: Only small changes in vent made as tolerated. 05/02: Decrease in H/H today, likely anemia of chronic disease. No apparent signs of bleeding. I was able to lower her inspiratory time (PEEP high) slightly without any significant change in SPO2. Her FiO2 was also decreased to 90%. No other significant changes. Plan will be to consult surgery for tracheostomy placement. 05/03/2020: Small incremental changes made on the ventilator today. FiO2 weaned slightly. No other significant changes. 05/04/2020: Patient has had a small bit of progress with weaning her FiO2. We will continue as tolerated and make attempts to wean her bilevel as well today. 05/05/2020: No significant changes over the past 24 hours. Patient has been saturating well with 80 to 90% FiO2. Overall plan today is to continue to wean. Patient will need tracheostomy tube. 05/06: Overall no major change. Has been seen by Dr. Manriquez regarding need for trach 05/05. 05/07: Plan for tracheostomy on 05/08. 05/08: Patient underwent uneventful tracheostomy today. 05/09: Starting to come down on sedation. 05/10: Off versed. May have to increase fentanyl. 05/11: Not able to make changes to vent. Not awakening off versed. 05/12: Seems to be calmer with addition of seroquel, although to early to tell. 05/13: Still having intermittent agitation. Seems less. 05/14: Off Precedex infusion this morning. On Ativan and Lortab per NG tube, tapering. Waking up. Follows commands. Mouthing words over ET tube. Occasional cough. Purulent secretions noted from the tracheostomy site. Still on BiVENT (P high 30, P low 10, T high 1.2, T low 0.8 + PSV 10). On cefepime/linezolid for trach aspirate (05/09) isolating E cloacae and S. aureus and MRSA bacteremia (05/09). T-max 100.6 today. 05/15: Continues to be febrile. On cefepime/Zyvox. WBC 22.2. Cultures pending, but it appears preliminary results suggest trach aspirate is isolating gram- negative rods. K 2.6 this morning. 05/16: Afebrile this morning with overall downward trend in temperature curve overnight. Started on meropenem and GINO nebs for gram-negative coverage. Trach wound is isolating Enterobacter cloacae in addition to gram-positive cocci in chains. WBC 22.2>18.2. Mentating well. Follows some commands, hindered by generalized weakness. 05/17: Febrile this morning (afebrile since 1800 yesterday). On meropenem/GINO for gram-negative coverage. Also on Zyvox. Trach wound isolated Enterobacter cloacae and Staph aureus. WBC 18.2>20. 05/18: Gets agitated at times and may be in pain. Review of systems relevant to events:: Pulmonary, neurological. Reason for ICU Addmission:: acute respiratory failure, covid -19 pneumonia, Has trach, on vent. - Medications: Medications reviewed and adjusted accordingly: Yes Vasopressors:: None Sedation:: None Physical Exam Vital Signs: Temp Pulse Resp BP Pulse Ox 99.0 F 126 H 36 H 99/61 L 100 05/18/20 08:00 05/18/20 08:04 05/18/20 08:04 05/18/20 08:00 05/18/20 08:04 Intake & Output 05/17/20 05/18/20 05/19/20 06:59 06:59 06:59 Intake Total 1632 2281 Output Total 3130 2600 150 Balance -1498 -319 -150 Weight 137 kg 139 kg Weight/Height Weight 139 kg Height 5 ft 3 in General appearance: PRESENT: no acute distress, morbidly obese Head exam: PRESENT: atraumatic, normocephalic Eye exam: PRESENT: conjunctiva pink, EOMI, PERRLA. ABSENT: scleral icterus Ear exam: PRESENT: normal external ear exam Mouth exam: PRESENT: moist, tongue midline Neck exam: PRESENT: tracheostomy Respiratory exam: PRESENT: clear to auscultation reji. ABSENT: rales, rhonchi, wheezes Cardiovascular exam: PRESENT: RRR, tachycardia. ABSENT: diastolic murmur, rubs, systolic murmur GI/Abdominal exam: PRESENT: normal bowel sounds, soft. ABSENT: distended, guarding, mass, organolmegaly, rebound, tenderness Rectal exam: PRESENT: deferred Gentrourinary exam: PRESENT: indwelling catheter Extremities exam: PRESENT: full ROM. ABSENT: calf tenderness, clubbing, pedal edema Musculoskeletal exam: PRESENT: normal inspection Neurological exam: PRESENT: alert, awake, CN II-XII grossly intact Psychiatric exam: PRESENT: agitated - At times Skin exam: PRESENT: dry, intact, warm. ABSENT: cyanosis, rash Tubes/Lines: PRESENT: Central Line, Nasogastic Tube, Other - Trach Laboratory/Radiographs Laboratory Results: 05/17/20 04:29 05/18/20 03:50 05/17/20 05/18/20 18:00 03:50 Carbonic Acid 1.54 H HCO3/H2CO3 Ratio 23:1 ABG pH 7.46 H ABG pCO2 51.0 H ABG pO2 32.0 L* ABG HCO3 35.5 H ABG O2 Saturation 63.8 L ABG Base Excess 10.4 FiO2 100% Sodium 135.8 L Potassium 4.0 D Chloride 91 L Carbon Dioxide 38 H Anion Gap 7 BUN 49 H Creatinine 0.66 Est GFR ( Amer) > 60 Glucose 141 H Calcium 9.6 05/14/20 15:20 Trach Site Gram Stain - Final 05/14/20 15:20 Trach Site Wound Culture - Final Enterobacter Cloacae Staphylococcus Aureus 03/21/20 04/11/20 04/14/20 21:58 03:05 01:59 Creatine Kinase Troponin I < 0.012 NT-Pro-B Natriuret Pep 192 H 184 H 04/24/20 04/25/20 04/26/20 14:18 09:01 03:53 Creatine Kinase Troponin I 0.012 NT-Pro-B Natriuret Pep 7620 H 5880 H 04/30/20 03:50 Creatine Kinase 301 H Troponin I NT-Pro-B Natriuret Pep Impressions: Abdomen Ultrasound 04/10/20 00:00 IMPRESSION: NO EVIDENCE FOR ASCITES. KUB X-Ray 04/29/20 00:00 IMPRESSION: NG tube is present with side port and tip overlying the body of the stomach. Chest X-Ray 05/16/20 13:33 IMPRESSION: No significant interval change. Bilateral ill-defined infiltrates. All labs, radiographs, diagnostic studies and EKGs were personally reviewed: Yes In addition, reports of radiographic and diagnostic studies were read: Yes Assessment and Plan - Diagnosis (1) Pneumonia due to COVID-19 virus Is this a current diagnosis for this admission?: Yes Plan: She is negative but still has high O2 requirements. Will once again try to wean. (2) Morbid obesity with BMI of 50.0-59.9, adult Is this a current diagnosis for this admission?: Yes Plan: No change (3) Anemia Is this a current diagnosis for this admission?: Yes Plan: Resolved for now. (4) Leukocytosis Qualifiers: Leukocytosis type: unspecified Qualified Code(s): D72.829 - Elevated white blood cell count, unspecified Is this a current diagnosis for this admission?: Yes Plan: WBC still at 20K. (5) Neurological deficit present Is this a current diagnosis for this admission?: Yes Plan: More awake. May be time to restart antipsychotic. Plan Summary: Will provide pain medications, restart haldol PO and try to wean vent. Critical Time Critical Time (minutes): 35 Level of Care: ICU Anticipated discharge: Other Anticipated DC Timeframe: Other -: 1. The care of a critical patient is a dynamic process. This note is a phone representative synopsis but static in nature. The timeframe for treatments given in order is not necessarily the actual time these treatments may have been done. 2. This patient requires critical care secondary to ongoing requirements for therapy not offered or safe outside the critical care environment. Transfer to a lower level of care will result in altered life or limb morbidity and mortality. 3. Multidisciplinary rounds completed. 4. ABCDE bundle addressed.
[2020-05-18] MEDS: HALOPERIDOL 0.5 MG TABLET NG SCH ×2 (10:37→22:25)
[2020-05-18] MEDS: AMINO AC/PROTEIN HYDR/WHEY PRO 11 GM/45 ML PKT NG SCH ×3 (10:40→17:12)
[2020-05-18] MEDS: CARVEDILOL 3.125 MG TABLET NG SCH ×2 (10:40→21:25)
[2020-05-18] MEDS: FUROSEMIDE INJ/PF 40 MG/4 ML SDV IV SCH ×2 (10:41→22:25)
[2020-05-18] MEDS: INSULIN GLARGINE,HUM.REC.ANLOG 1,000 UNIT/10 ML VIAL SUBCUT SCH ×2 (10:41→22:25)
[2020-05-18] MEDS: METHYLPREDNISOLONE INJ 40 MG/1 ML SDV IV SCH (10:42)
[2020-05-18] MEDS: FAMOTIDINE INJ/PF 20 MG/2 ML SDV IV SCH ×2 (10:42→22:25)
[2020-05-18] MEDS: LINEZOLID 600 MG/300 ML RTUPB IV SCH ×2 (10:43→22:25)
[2020-05-18] MEDS: MELATONIN 5 MG TABLET NG SCH (22:25)
[2020-05-19] MEDS: HEPARIN SODIUM,PORCINE/D5W 25,000 UNIT/250 ML RTUINJ IV PRN ×2 (00:19→14:05)
[2020-05-19] MEDS: QUETIAPINE FUMARATE 25 MG TABLET NG SCH ×4 (01:59→17:02)
[2020-05-19] MEDS: LORAZEPAM 1 MG TABLET NG SCH ×4 (01:59→17:03)
[2020-05-19] MEDS: HYDROCOD/ACETAMIN 7.5-325 MG/15 ML ORAL SOLN UDCUP NG SCH ×5 (02:00→23:55)
[2020-05-19] MEDS: HYDROMORPHONE HCL INJ/PF 2 MG/ML AMPULE IV PRN ×6 (02:13→20:05)
[2020-05-19] MEDS: MEROPENEM 500 MG in NORMAL SALINE 50 ML IV SCH ×3 (02:13→17:03)
[2020-05-19] MEDS: INSULIN REG, HUMAN 100 UNIT/ML 3 ML VIAL (PYX) SUBCUT SCH ×6 (02:14→23:55)
[2020-05-19 05:01] LABS: ABSOLUTE EOSINOPHILS # (AUTO) 0.1 10^3/uL (0.0-0.6); ABSOLUTE MONOCYTES (AUTO) 1.4 10^3/uL (0.1-1.4); ABSOLUTE NEUT (AUTO) 11.9 10^3/uL (1.7-8.2); BASOPHILS % (AUTO) 0.2 % (0-2); EOSINOPHILS % (AUTO) 0.6 % (0-6); HEMATOCRIT 24.5 % (36.0-47.0); HEMOGLOBIN 8.1 g/dL (12.0-15.5); LYMPHOCYTES % (AUTO) 18.3 % (13-45); MEAN CORPUSCULAR HEMOGLOBIN 28.7 pg (27.0-33.4); MEAN CORPUSCULAR HGB CONC 32.9 g/dL (32.0-36.0); MEAN CORPUSCULAR VOLUME 87 fl (80-97); MONOCYTES % (AUTO) 8.8 % (3-13); PLATELET COUNT 226 10^3/uL (150-450); RED CELL DISTRIBUTION WIDTH 21.4 % (11.5-14.0); SEGMENTED NEUTROPHILS % (AUTO) 72.1 % (42-78); TOTAL CELLS COUNTED % (AUTO) 100 %; WHITE BLOOD COUNT 16.5 10^3/uL (4.0-10.5)
[2020-05-19 05:11] LABS: PARTIAL THROMBOPLASTIN TIME 88.9 SEC (23.5-35.8)
[2020-05-19 05:12] LABS: D-DIMER 1.98 ug/mL (0.00-0.50)
[2020-05-19] MEDS: BUDESONIDE NEB 0.25 MG/2 ML AMPUL NEB SCH ×2 (08:03→20:57)
[2020-05-19] MEDS: ALBUTEROL SULFATE 0.083% NEB 2.5 MG/3 ML AMPUL NEB PRN ×2 (08:03→20:57)
[2020-05-19] MEDS: TOBRAMYCIN SULFATE NEB 40 MG/ML 30 ML NEB SCH ×2 (08:03→20:57)
--- NOTE | 2020-05-19 09:01 | PDOC CRITICAL CARE PROG REPORT ---
General Date:: 05/19/20 ICU Day:: 48 Ventilator Day:: 48 Hospital Day:: 58 Resuscitation Status: Full Code Events in the past 12 to 24 Hours:: This 44-year-old -[place] female presented to [facility] emergency department on 03/21/2020 with complaints of possible presyncope versus syncope in addition to fever, chills, productive cough, dyspnea and exertional dyspnea. She has a history of psychiatric disorders and is known to be a difficult historian. Nonetheless, the patient also was known to have been diagnosed with COVID-19 pneumonia on 03/17/2020 and had subsequently been evaluated in the emergency department. She was apparently discharged home with prescriptions for azithromycin and other medications for symptomatic treatment. She returned with worsening shortness of breath and newly demonstrating supplemental oxygen requirement. 04/09-04/10: Remains intubated. Sedated with Precedex/Versed/fentanyl. On pressure control mode with peak and plateau pressures in the 40s. On insulin infusion for glucose control. On Glucerna + Prosource. KUB obtained showed a gasless abdomen, incongruent with physical exam (possibly due to morbid obesity). Still no BM. 04/11-: Had brisk diuresis with furosemide 40 mg IV single dose (2600 mL urine output), which resulted in a decrease in CVP. However, CVP is now back up to 910. On PRVC mode. ABG this a.m.: 7.46/46/53. Creatinine 0.6. WBC 17.3>11.4. Still no BM. On Versed/fentanyl/Precedex for sedation. Opens eyes to physical stimuli. Tube feeding currently on hold due to high residuals. Of note, even in the absence of tube feeding, the patient is having gastric residuals in the 200s. She does demonstrate spontaneous eye opening. She does not follow commands. 04/13-: Switched to BiVENT/APRV on 04/12/2020 (FiO2 80%, P high 17, T high 9.5 seconds, P low 3, T low 0.5 seconds). ABG this a.m.: 7.42/50/72. Off insulin infusion. Overnight, the patient had an episode of hypoglycemia (40) despite being on trickle tube feeds. Blood cultures (04/13) isolated gram-positive cocci in clusters. Tracheal aspirate (04/13) isolated Staphylococcus aureus. GPC is MSSA sens to rocephin. Still unsure if it's a contaminate. No progress made on ventilator. Changed back to PRVC on 04/16. Still 100% and PEEP 14. 04/18: CXR looks better. Will try weaning today. FiO2 first. 04/19-: Not able to wean yesterday. O2 saturations 95-96%. Will wean PEEP. Down to 10 in effort to lower PEEP for trach which I believe she will need. No weaning on drips yet. Will need trach and PEG. O2 saturations worse, in mid to low 80s on 100%. Talked with Dr. Owen regarding need for trach next week. 04/23: Remains intubated. On rocuronium, Versed and fentanyl infusions. FiO2 95%. PRVC. WBC 13.6. D-dimer 3.14. CRP 59.1. Magnesium 1.5. 04/24: Rocuronium was discontinued yesterday. The patient's ventilator mode was switched to BiVENT. Versed changed to propofol. Still on fentanyl. On BiVENT. [facility] sedated. 04/25: Yesterday afternoon, she developed acute hypoxemic decompensation followed by profound hypotension. Clinically, this was highly suspicious for pulmonary embolism. She was started on heparin infusion. SVO2 was found to be 15%. She was started on dobutamine. Ventilator settings were changed. She is still on BiVENT/APRV but now with settings that closely mimic inverse I:E pressure control ventilation. FiO2 100%. P high 20, P low 10, T high 1.5, T low 0.5. 04/26: COVID-19 ([facility] from 04/23) finally returned to negative result. Dobutamine changed to milrinone yesterday. Still on BiVENT/APRV but has been tolerating lower pressures in longer T high times. Had an episode of oxygen desaturation again this morning. Clinically, it appears that she is having increased secretions from the airway, possibly with mucous plugging. Settings were changed subsequent to oxygen desaturation: P high 30, P low 10, T high 1.5, T low 0.5. ABG this a.m.: 7.36/51/69. Diuresing, -869 mL yesterday. proBNP 5880. BM +. 04/27: [facility] sedated, synchronous with ventilator. BG this a.m. 7.28/64/78. WBC 25.8 this AM. CRP 200. D-dimer 2.04. 04/28: WBC down to 25.8>14.8 this AM. Not on antibiotics. However, hemoglobin also dropped to 6.6. Repeat hemoglobin 6.2. No obvious blood loss. Blood urine and tracheal aspirate cultures from 04/27 pending. On propofol/Pre cedex/fentanyl. Triglycerides 183. 04/29: Febrile (T-max 24-hour 102.7 Fahrenheit), reportedly refractory to Tylenol and cooling blanket. WBC 28.3. Hemoglobin 6.2>9 after transfusion of 2 units PRBC yesterday. Started on vancomycin overnight due to gram-positive cocci in trach aspirate (04/27), which are now being reported as MRSA. Also, blood cultures (1 of 2) are growing out Staphylococcus species, possibly a contaminant. Still on propofol/Precedex/fentanyl for sedation. Started Versed overnight as well. On BiVENT/APRV: P high 20, P low 3, T high 5.5, T low 0.5. + PSV 15. 04/30: Bun/Cr slightly up. Vancomycin stopped. Linezolid started. Off propofol, may have had propofol infusion syndrome. 05/01: Only small changes in vent made as tolerated. 05/02: Decrease in H/H today, likely anemia of chronic disease. No apparent signs of bleeding. I was able to lower her inspiratory time (PEEP high) slightly without any significant change in SPO2. Her FiO2 was also decreased to 90%. No other significant changes. Plan will be to consult surgery for tracheostomy placement. 05/03/2020: Small incremental changes made on the ventilator today. FiO2 weaned slightly. No other significant changes. 05/04/2020: Patient has had a small bit of progress with weaning her FiO2. We will continue as tolerated and make attempts to wean her bilevel as well today. 05/05/2020: No significant changes over the past 24 hours. Patient has been saturating well with 80 to 90% FiO2. Overall plan today is to continue to wean. Patient will need tracheostomy tube. 05/06: Overall no major change. Has been seen by Dr. Manriquez regarding need for trach 05/05. 05/07: Plan for tracheostomy on 05/08. 05/08: Patient underwent uneventful tracheostomy today. 05/09: Starting to come down on sedation. 05/10: Off versed. May have to increase fentanyl. 05/11: Not able to make changes to vent. Not awakening off versed. 05/12: Seems to be calmer with addition of seroquel, although to early to tell. 05/13: Still having intermittent agitation. Seems less. 05/14: Off Precedex infusion this morning. On Ativan and Lortab per NG tube, tapering. Waking up. Follows commands. Mouthing words over ET tube. Occasional cough. Purulent secretions noted from the tracheostomy site. Still on BiVENT (P high 30, P low 10, T high 1.2, T low 0.8 + PSV 10). On cefepime/linezolid for trach aspirate (05/09) isolating E cloacae and S. aureus and MRSA bacteremia (05/09). T-max 100.6 today. 05/15: Continues to be febrile. On cefepime/Zyvox. WBC 22.2. Cultures pending, but it appears preliminary results suggest trach aspirate is isolating gram- negative rods. K 2.6 this morning. 05/16: Afebrile this morning with overall downward trend in temperature curve overnight. Started on meropenem and GINO nebs for gram-negative coverage. Trach wound is isolating Enterobacter cloacae in addition to gram-positive cocci in chains. WBC 22.2>18.2. Mentating well. Follows some commands, hindered by generalized weakness. 05/17: Febrile this morning (afebrile since 1800 yesterday). On meropenem/GINO for gram-negative coverage. Also on Zyvox. Trach wound isolated Enterobacter cloacae and Staph aureus. WBC 18.2>20. 05/18: Gets agitated at times and may be in pain. 05/19: When coughing her O2 saturations will go from 81-95% in less than a minute. Not accurate. Awake at times not following commands. Review of systems relevant to events:: Pulonary, neurological. Reason for ICU Addmission:: acute respiratory failure, covid -19 pneumonia, Has trach, on vent. - Medications: Medications reviewed and adjusted accordingly: Yes Vasopressors:: None Sedation:: None Physical Exam Vital Signs: Temp Pulse Resp BP Pulse Ox 99.3 F 103 H 34 H 125/86 H 85 L 05/19/20 06:00 05/18/20 20:08 05/19/20 07:00 05/19/20 06:14 05/19/20 07:00 Intake & Output 05/18/20 05/19/20 05/20/20 06:59 06:59 06:59 Intake Total 2281 1340 Output Total 2600 2520 Balance -319 -1180 Weight 139 kg 137.5 kg Weight/Height Weight 137.5 kg Height 5 ft 3 in General appearance: PRESENT: no acute distress, morbidly obese Head exam: PRESENT: atraumatic, normocephalic Eye exam: PRESENT: conjunctiva pink, EOMI, PERRLA. ABSENT: scleral icterus Ear exam: PRESENT: normal external ear exam Mouth exam: PRESENT: moist, tongue midline Neck exam: PRESENT: tracheostomy Respiratory exam: PRESENT: clear to auscultation reji. ABSENT: rales, rhonchi, wheezes Cardiovascular exam: PRESENT: RRR, tachycardia. ABSENT: diastolic murmur, rubs, systolic murmur GI/Abdominal exam: PRESENT: normal bowel sounds, soft. ABSENT: distended, guarding, mass, organolmegaly, rebound, tenderness Rectal exam: PRESENT: deferred Gentrourinary exam: PRESENT: indwelling catheter Extremities exam: PRESENT: full ROM. ABSENT: calf tenderness, clubbing, pedal edema Musculoskeletal exam: PRESENT: normal inspection Neurological exam: PRESENT: altered, awake, CN II-XII grossly intact Psychiatric exam: PRESENT: agitated - At times Skin exam: PRESENT: dry, intact, warm. ABSENT: cyanosis, rash Tubes/Lines: PRESENT: Central Line, Nasogastic Tube, Other - Trach Laboratory/Radiographs Laboratory Results: 05/19/20 04:40 05/18/20 03:50 05/19/20 05/19/20 04:40 04:40 WBC 16.5 H RBC 2.80 L Hgb 8.1 L Hct 24.5 L MCV 87 MCH 28.7 MCHC 32.9 RDW 21.4 H Plt Count 226 Seg Neutrophils % 72.1 C-Reactive Protein 27.7 H 03/21/20 04/11/20 04/14/20 21:58 03:05 01:59 Creatine Kinase Troponin I < 0.012 NT-Pro-B Natriuret Pep 192 H 184 H 04/24/20 04/25/20 04/26/20 14:18 09:01 03:53 Creatine Kinase Troponin I 0.012 NT-Pro-B Natriuret Pep 7620 H 5880 H 04/30/20 03:50 Creatine Kinase 301 H Troponin I NT-Pro-B Natriuret Pep Impressions: Abdomen Ultrasound 04/10/20 00:00 IMPRESSION: NO EVIDENCE FOR ASCITES. KUB X-Ray 04/29/20 00:00 IMPRESSION: NG tube is present with side port and tip overlying the body of the stomach. Chest X-Ray 05/16/20 13:33 IMPRESSION: No significant interval change. Bilateral ill-defined infiltrates. All labs, radiographs, diagnostic studies and EKGs were personally reviewed: Yes In addition, reports of radiographic and diagnostic studies were read: Yes Assessment and Plan - Diagnosis (1) Pneumonia due to COVID-19 virus Is this a current diagnosis for this admission?: Yes Plan: Negative for Covid bt still having trouble weaning PEEP and FIO2. (2) Morbid obesity with BMI of 50.0-59.9, adult Is this a current diagnosis for this admission?: Yes Plan: Has been largely unchanged. Somewhat lower weight probably due to loss of muscle mass mostly. (3) Anemia Is this a current diagnosis for this admission?: Yes Plan: Stable (4) Leukocytosis Qualifiers: Leukocytosis type: unspecified Qualified Code(s): D72.829 - Elevated white blood cell count, unspecified Is this a current diagnosis for this admission?: Yes Plan: Lower at 16K WBC. Plan Summary: Continue to try and make small changes to PEEP and FIO2. Critical Time Critical Time (minutes): 35 Level of Care: ICU Anticipated discharge: SNF Anticipated DC Timeframe: Other -: 1. The care of a critical patient is a dynamic process. This note is a r epresentative synopsis but static in nature. The timeframe for treatments given in order is not necessarily the actual time these treatments may have been done. 2. This patient requires critical care secondary to ongoing requirements for therapy not offered or safe outside the critical care environment. Transfer to a lower level of care will result in altered life or limb morbidity and mortali ty. 3. Multidisciplinary rounds completed. 4. ABCDE bundle addressed.
[2020-05-19] MEDS: METHYLPREDNISOLONE INJ 40 MG/1 ML SDV IV SCH (10:12)
[2020-05-19] MEDS: CARVEDILOL 3.125 MG TABLET NG SCH ×2 (10:13→23:55)
[2020-05-19] MEDS: FAMOTIDINE INJ/PF 20 MG/2 ML SDV IV SCH ×2 (10:13→23:55)
[2020-05-19] MEDS: LINEZOLID 600 MG/300 ML RTUPB IV SCH (10:13)
[2020-05-19] MEDS: HALOPERIDOL 0.5 MG TABLET NG SCH ×2 (10:13→23:55)
[2020-05-19] MEDS: INSULIN GLARGINE,HUM.REC.ANLOG 1,000 UNIT/10 ML VIAL SUBCUT SCH (10:13)
[2020-05-19] MEDS: 1/2 NORMAL SALINE 1,000 ML with POTASSIUM CHLORIDE 40 MEQ IV PRN ×2 (10:13)
[2020-05-19] MEDS: FUROSEMIDE INJ/PF 40 MG/4 ML SDV IV SCH (10:13)
[2020-05-19] MEDS: AMINO AC/PROTEIN HYDR/WHEY PRO 11 GM/45 ML PKT NG SCH ×3 (10:14→17:01)
[2020-05-19] MEDS: ACETAMINOPHEN SOLN 325 MG/10.15 ML UDCUP PO PRN (17:02)
[2020-05-20] MEDS ORDERED: FENTANYL CITRATE INJ/PF 100 MCG/2 ML AMPUL ONE (00:02)
[2020-05-20] MEDS: MELATONIN 5 MG TABLET NG SCH ×2 (00:13→21:41)
[2020-05-20] MEDS: FUROSEMIDE INJ/PF 40 MG/4 ML SDV IV SCH ×3 (00:13→21:42)
[2020-05-20] MEDS: 1/2 NORMAL SALINE 1,000 ML with POTASSIUM CHLORIDE 40 MEQ IV PRN ×4 (00:30→14:20)
[2020-05-20] MEDS: INSULIN GLARGINE,HUM.REC.ANLOG 1,000 UNIT/10 ML VIAL SUBCUT SCH ×3 (00:31→21:42)
[2020-05-20] MEDS: LINEZOLID 600 MG/300 ML RTUPB IV SCH ×3 (00:35→21:46)
[2020-05-20] MEDS: LORAZEPAM 1 MG TABLET NG SCH ×3 (00:40→12:10)
[2020-05-20] MEDS: QUETIAPINE FUMARATE 25 MG TABLET NG SCH ×4 (00:41→17:29)
[2020-05-20] MEDS: MEROPENEM 500 MG in NORMAL SALINE 50 ML IV SCH ×3 (02:35→17:28)
[2020-05-20] MEDS: INSULIN REG, HUMAN 100 UNIT/ML 3 ML VIAL (PYX) SUBCUT SCH ×6 (05:00→21:43)
[2020-05-20] MEDS: HYDROCOD/ACETAMIN 7.5-325 MG/15 ML ORAL SOLN UDCUP NG SCH ×3 (05:15→17:27)
[2020-05-20] MEDS: HYDROMORPHONE HCL INJ/PF 2 MG/ML AMPULE IV PRN ×5 (05:18→18:47)
[2020-05-20] MEDS: HEPARIN SODIUM,PORCINE/D5W 25,000 UNIT/250 ML RTUINJ IV PRN ×2 (05:18→22:04)
[2020-05-20] MEDS: TOBRAMYCIN SULFATE NEB 40 MG/ML 30 ML NEB SCH ×2 (07:54→19:54)
[2020-05-20] MEDS: ALBUTEROL SULFATE 0.083% NEB 2.5 MG/3 ML AMPUL NEB PRN ×2 (07:54→19:55)
[2020-05-20] MEDS: BUDESONIDE NEB 0.25 MG/2 ML AMPUL NEB SCH ×2 (07:54→19:55)
[2020-05-20] MEDS: AMINO AC/PROTEIN HYDR/WHEY PRO 11 GM/45 ML PKT NG SCH ×3 (09:09→17:30)
[2020-05-20] MEDS: HALOPERIDOL 0.5 MG TABLET NG SCH ×2 (09:09→21:40)
[2020-05-20] MEDS: FAMOTIDINE INJ/PF 20 MG/2 ML SDV IV SCH ×2 (09:10→21:42)
[2020-05-20] MEDS: METHYLPREDNISOLONE INJ 40 MG/1 ML SDV IV SCH (09:10)
[2020-05-20] MEDS: CARVEDILOL 3.125 MG TABLET NG SCH ×2 (09:11→21:41)
--- NOTE | 2020-05-20 09:38 | PDOC CRITICAL CARE PROG REPORT ---
General Date:: 05/20/20 ICU Day:: 49 Ventilator Day:: 49 Hospital Day:: 59 Resuscitation Status: Full Code Events in the past 12 to 24 Hours:: This 44-year-old -[place] female presented to [facility] emergency department on 03/21/2020 with complaints of possible presyncope versus syncope in addition to fever, chills, productive cough, dyspnea and exertional dyspnea. She has a history of psychiatric disorders and is known to be a difficult historian. Nonetheless, the patient also was known to have been diagnosed with COVID-19 pneumonia on 03/17/2020 and had subsequently been evaluated in the emergency department. She was apparently discharged home with prescriptions for azithromycin and other medications for symptomatic treatment. She returned with worsening shortness of breath and newly demonstrating supplemental oxygen requirement. 04/09-04/10: Remains intubated. Sedated with Precedex/Versed/fentanyl. On pressure control mode with peak and plateau pressures in the 40s. On insulin infusion for glucose control. On Glucerna + Prosource. KUB obtained showed a gasless abdomen, incongruent with physical exam (possibly due to morbid obesity). Still no BM. 04/11-: Had brisk diuresis with furosemide 40 mg IV single dose (2600 mL urine output), which resulted in a decrease in CVP. However, CVP is now back up to 910. On PRVC mode. ABG this a.m.: 7.46/46/53. Creatinine 0.6. WBC 17.3>11.4. Still no BM. On Versed/fentanyl/Precedex for sedation. Opens eyes to physical stimuli. Tube feeding currently on hold due to high residuals. Of note, even in the absence of tube feeding, the patient is having gastric residuals in the 200s. She does demonstrate spontaneous eye opening. She does not follow commands. 04/13-: Switched to BiVENT/APRV on 04/12/2020 (FiO2 80%, P high 17, T high 9.5 seconds, P low 3, T low 0.5 seconds). ABG this a.m.: 7.42/50/72. Off insulin infusion. Overnight, the patient had an episode of hypoglycemia (40) despite being on trickle tube feeds. Blood cultures (04/13) isolated gram-positive cocci in clusters. Tracheal aspirate (04/13) isolated Staphylococcus aureus. GPC is MSSA sens to rocephin. Still unsure if it's a contaminate. No progress made on ventilator. Changed back to PRVC on 04/16. Still 100% and PEEP 14. 04/18: CXR looks better. Will try weaning today. FiO2 first. 04/19-: Not able to wean yesterday. O2 saturations 95-96%. Will wean PEEP. Down to 10 in effort to lower PEEP for trach which I believe she will need. No weaning on drips yet. Will need trach and PEG. O2 saturations worse, in mid to low 80s on 100%. Talked with Dr. Owen regarding need for trach next week. 04/23: Remains intubated. On rocuronium, Versed and fentanyl infusions. FiO2 95%. PRVC. WBC 13.6. D-dimer 3.14. CRP 59.1. Magnesium 1.5. 04/24: Rocuronium was discontinued yesterday. The patient's ventilator mode was switched to BiVENT. Versed changed to propofol. Still on fentanyl. On BiVENT. [place] sedated. 04/25: Yesterday afternoon, she developed acute hypoxemic decompensation followed by profound hypotension. Clinically, this was highly suspicious for pulmonary embolism. She was started on heparin infusion. SVO2 was found to be 15%. She was started on dobutamine. Ventilator settings were changed. She is still on BiVENT/APRV but now with settings that closely mimic inverse I:E pressure control ventilation. FiO2 100%. P high 20, P low 10, T high 1.5, T low 0.5. 04/26: COVID-19 (HUGH from 04/23) finally returned to negative result. Dobutamine changed to milrinone yesterday. Still on BiVENT/APRV but has been tolerating lower pressures in longer T high times. Had an episode of oxygen desaturation again this morning. Clinically, it appears that she is having increased secretions from the airway, possibly with mucous plugging. Settings were changed subsequent to oxygen desaturation: P high 30, P low 10, T high 1.5, T low 0.5. ABG this a.m.: 7.36/51/69. Diuresing, -869 mL yesterday. proBNP 5880. BM +. 04/27: [place] sedated, synchronous with ventilator. BG this a.m. 7.28/64/78. WBC 25.8 this AM. CRP 200. D-dimer 2.04. 04/28: WBC down to 25.8>14.8 this AM. Not on antibiotics. However, hemoglobin also dropped to 6.6. Repeat hemoglobin 6.2. No obvious blood loss. Blood urine and tracheal aspirate cultures from 04/27 pending. On propofol/Pre cedex/fentanyl. Triglycerides 183. 04/29: Febrile (T-max 24-hour 102.7 Fahrenheit), reportedly refractory to Tylenol and cooling blanket. WBC 28.3. Hemoglobin 6.2>9 after transfusion of 2 units PRBC yesterday. Started on vancomycin overnight due to gram-positive cocci in trach aspirate (04/27), which are now being reported as MRSA. Also, blood cultures (1 of 2) are growing out Staphylococcus species, possibly a contaminant. Still on propofol/Precedex/fentanyl for sedation. Started Versed overnight as well. On BiVENT/APRV: P high 20, P low 3, T high 5.5, T low 0.5. + PSV 15. 04/30: Bun/Cr slightly up. Vancomycin stopped. Linezolid started. Off propofol, may have had propofol infusion syndrome. 05/01: Only small changes in vent made as tolerated. 05/02: Decrease in H/H today, likely anemia of chronic disease. No apparent signs of bleeding. I was able to lower her inspiratory time (PEEP high) slightly without any significant change in SPO2. Her FiO2 was also decreased to 90%. No other significant changes. Plan will be to consult surgery for tracheostomy placement. 05/03/2020: Small incremental changes made on the ventilator today. FiO2 weaned slightly. No other significant changes. 05/04/2020: Patient has had a small bit of progress with weaning her FiO2. We will continue as tolerated and make attempts to wean her bilevel as well today. 05/05/2020: No significant changes over the past 24 hours. Patient has been saturating well with 80 to 90% FiO2. Overall plan today is to continue to wean. Patient will need tracheostomy tube. 05/06: Overall no major change. Has been seen by Dr. Manriquez regarding need for trach 05/05. 05/07: Plan for tracheostomy on 05/08. 05/08: Patient underwent uneventful tracheostomy today. 05/09: Starting to come down on sedation. 05/10: Off versed. May have to increase fentanyl. 05/11: Not able to make changes to vent. Not awakening off versed. 05/12: Seems to be calmer with addition of seroquel, although to early to tell. 05/13: Still having intermittent agitation. Seems less. 05/14: Off Precedex infusion this morning. On Ativan and Lortab per NG tube, tapering. Waking up. Follows commands. Mouthing words over ET tube. Occasional cough. Purulent secretions noted from the tracheostomy site. Still on BiVENT (P high 30, P low 10, T high 1.2, T low 0.8 + PSV 10). On cefepime/linezolid for trach aspirate (05/09) isolating E cloacae and S. aureus and MRSA bacteremia (05/09). T-max 100.6 today. 05/15: Continues to be febrile. On cefepime/Zyvox. WBC 22.2. Cultures pending, but it appears preliminary results suggest trach aspirate is isolating gram- negative rods. K 2.6 this morning. 05/16: Afebrile this morning with overall downward trend in temperature curve overnight. Started on meropenem and GINO nebs for gram-negative coverage. Trach wound is isolating Enterobacter cloacae in addition to gram-positive cocci in chains. WBC 22.2>18.2. Mentating well. Follows some commands, hindered by generalized weakness. 05/17: Febrile this morning (afebrile since 1800 yesterday). On meropenem/GINO for gram-negative coverage. Also on Zyvox. Trach wound isolated Enterobacter cloacae and Staph aureus. WBC 18.2>20. 05/18: Gets agitated at times and may be in pain. 05/19: When coughing her O2 saturations will go from 81-95% in less than a minute. Not accurate. Awake at times not following commands. 05/20: FIO2 back up to 100%, not clear why. PSV and PEEP still at 12. Review of systems relevant to events:: Pulmonary, neurological. Reason for ICU Addmission:: acute respiratory failure, covid -19 pneumonia, Has trach, on vent. - Medications: Medications reviewed and adjusted accordingly: Yes Vasopressors:: None Sedation:: None Physical Exam Vital Signs: Temp Pulse Resp BP Pulse Ox 98.4 F 95 28 H 94/56 L 92 05/20/20 08:00 05/20/20 08:00 05/20/20 08:00 05/20/20 08:00 05/20/20 08:00 Intake & Output 05/19/20 05/20/20 05/21/20 06:59 06:59 06:59 Intake Total 2340 2467 63 Output Total 2520 2675 150 Balance -180 -208 -87 Weight 137.5 kg 140.5 kg Weight/Height Weight 140.5 kg Height 5 ft 3 in General appearance: PRESENT: no acute distress, morbidly obese Head exam: PRESENT: atraumatic, normocephalic Eye exam: PRESENT: conjunctiva pink, EOMI, PERRLA Ear exam: PRESENT: normal external ear exam Mouth exam: PRESENT: moist, tongue midline Respiratory exam: PRESENT: clear to auscultation reji. ABSENT: rales, rhonchi, wheezes Cardiovascular exam: PRESENT: RRR. ABSENT: diastolic murmur, rubs, systolic murmur GI/Abdominal exam: PRESENT: normal bowel sounds, soft. ABSENT: distended, guarding, mass, organolmegaly, rebound, tenderness Rectal exam: PRESENT: deferred Gentrourinary exam: PRESENT: indwelling catheter Extremities exam: PRESENT: full ROM. ABSENT: calf tenderness, clubbing, pedal edema Musculoskeletal exam: PRESENT: normal inspection Neurological exam: PRESENT: altered, awake, CN II-XII grossly intact, other - Looks frightened at times. Looks directly but does nothing purposeful. Skin exam: PRESENT: dry, intact, warm. ABSENT: cyanosis, rash Tubes/Lines: PRESENT: Central Line, Nasogastic Tube, Other - Trach Laboratory/Radiographs Laboratory Results: 05/19/20 04:40 05/18/20 03:50 05/14/20 19:01 Blood Blood Culture - Final NO GROWTH IN 5 DAYS 05/14/20 15:20 Blood Blood Culture - Final NO GROWTH IN 5 DAYS 03/21/20 04/11/20 04/14/20 21:58 03:05 01:59 Creatine Kinase Troponin I < 0.012 NT-Pro-B Natriuret Pep 192 H 184 H 04/24/20 04/25/20 04/26/20 14:18 09:01 03:53 Creatine Kinase Troponin I 0.012 NT-Pro-B Natriuret Pep 7620 H 5880 H 04/30/20 03:50 Creatine Kinase 301 H Troponin I NT-Pro-B Natriuret Pep Impressions: Abdomen Ultrasound 04/10/20 00:00 IMPRESSION: NO EVIDENCE FOR ASCITES. KUB X-Ray 04/29/20 00:00 IMPRESSION: NG tube is present with side port and tip overlying the body of the stomach. Chest X-Ray 05/16/20 13:33 IMPRESSION: No significant interval change. Bilateral ill-defined infiltrates. All labs, radiographs, diagnostic studies and EKGs were personally reviewed: Yes In addition, reports of radiographic and diagnostic studies were read: Yes Assessment and Plan - Diagnosis (1) Pneumonia due to COVID-19 virus Is this a current diagnosis for this admission?: Yes Plan: Negative but the effects are still being felt in her lungs. Nearly daily she will have a spell of tachypnea for no good reason and FIO2 must be increased at least temporarily. This may have happened overnight. (2) Morbid obesity with BMI of 50.0-59.9, adult Is this a current diagnosis for this admission?: Yes Plan: No change (3) Anemia Is this a current diagnosis for this admission?: Yes Plan: No change (4) Leukocytosis Qualifiers: Leukocytosis type: unspecified Qualified Code(s): D72.829 - Elevated white blood cell count, unspecified Is this a current diagnosis for this admission?: Yes Plan: WBC down to 16K. Plan Summary: Continue to wean vent settings, not only FIO2 but PSV and PEEP as well. Critical Time Critical Time (minutes): 35 Level of Care: ICU Anticipated discharge: SNF Anticipated DC Timeframe: Other -: 1. The care of a critical patient is a dynamic process. This note is a passenger relations representative synopsis but static in nature. The timeframe for treatments given in order is not necessarily the actual time these treatments may have been done. 2. This patient requires critical care secondary to ongoing requirements for therapy not offered or safe outside the critical care environment. Transfer to a lower level of care will result in altered life or limb morbidity and mor tality. 3. Multidisciplinary rounds completed. 4. ABCDE bundle addressed.
[2020-05-20] MEDS ORDERED: LORAZEPAM 0.5 MG TABLET PO ONE (15:43)
[2020-05-20] MEDS ORDERED: LORAZEPAM 1 MG TABLET ONE (15:45)
[2020-05-20] MEDS ORDERED: LORAZEPAM 1 MG TABLET NG ONE (16:00)
[2020-05-20] MEDS ORDERED: DEXMEDETOMIDINE IN 0.9 % NACL 400 MCG/100 ML RTUPB IV ONE (18:46)
[2020-05-20] MEDS: HEPARIN SOD (PORCINE) 1,000 UNIT/ML 10 ML VIAL IV PRN (18:52)
[2020-05-20] MEDS: DEXMEDETOMIDINE IN 0.9 % NACL 400 MCG/100 ML RTUPB IV PRN (19:00)
[2020-05-21] MEDS: HYDROMORPHONE HCL INJ/PF 2 MG/ML AMPULE IV PRN ×2 (00:20→13:10)
[2020-05-21] MEDS: INSULIN REG, HUMAN 100 UNIT/ML 3 ML VIAL (PYX) SUBCUT SCH ×5 (02:35→23:53)
[2020-05-21] MEDS: HYDROCOD/ACETAMIN 7.5-325 MG/15 ML ORAL SOLN UDCUP NG SCH ×5 (02:35→23:52)
[2020-05-21] MEDS: QUETIAPINE FUMARATE 25 MG TABLET NG SCH ×5 (02:36→23:55)
[2020-05-21] MEDS: MEROPENEM 500 MG in NORMAL SALINE 50 ML IV SCH ×3 (02:36→18:46)
[2020-05-21] MEDS: 1/2 NORMAL SALINE 1,000 ML with POTASSIUM CHLORIDE 40 MEQ IV PRN ×4 (02:42→14:53)
[2020-05-21] MEDS: ALBUTEROL SULFATE 0.083% NEB 2.5 MG/3 ML AMPUL NEB PRN ×2 (07:50→20:39)
[2020-05-21] MEDS: BUDESONIDE NEB 0.25 MG/2 ML AMPUL NEB SCH ×2 (07:50→20:39)
[2020-05-21] MEDS: TOBRAMYCIN SULFATE NEB 40 MG/ML 30 ML NEB SCH ×2 (07:51→20:39)
[2020-05-21] MEDS: DEXMEDETOMIDINE IN 0.9 % NACL 400 MCG/100 ML RTUPB IV PRN ×3 (08:29→20:31)
[2020-05-21 08:38] LABS: MEAN CORPUSCULAR HEMOGLOBIN 29.3 pg (27.0-33.4); MEAN CORPUSCULAR HGB CONC 33.5 g/dL (32.0-36.0); MEAN CORPUSCULAR VOLUME 88 fl (80-97); PLATELET COUNT 221 10^3/uL (150-450); RED BLOOD COUNT 2.63 10^6/uL (3.72-5.28); RED CELL DISTRIBUTION WIDTH 21.2 % (11.5-14.0); WHITE BLOOD COUNT 18.4 10^3/uL (4.0-10.5)
[2020-05-21 09:06] LABS: HEMOGLOBIN 7.7 g/dL (12.0-15.5)
[2020-05-21 09:09] LABS: ABSOLUTE MONOCYTES # (MANUAL) 0.9 10^3/uL (0.1-1.4); BASOPHILS % (MANUAL) 1 % (0-2); EOSINOPHILS % (MANUAL) 2 % (0-6); LYMPHOCYTES % (MANUAL) 11 % (13-45); MONOCYTES % (MANUAL) 5 % (3-13); NUCLEATED RED BLOOD CELLS 2 /100 WBC (0); SEGMENTED NEUTROPHILS % (MAN) 81 % (42-78); TOTAL CELLS COUNTED 100
[2020-05-21 09:10] LABS: ANISOCYTOSIS 2+; POIKILOCYTOSIS 1+; POLYCHROMASIA SLIGHT; STOMATOCYTES 1+; TARGET CELLS SLIGHT
[2020-05-21 09:11] LABS: PLATELET CLUMPS PRESENT; PLATELET COMMENT ADEQUATE
[2020-05-21] MEDS: AMINO AC/PROTEIN HYDR/WHEY PRO 11 GM/45 ML PKT NG SCH ×3 (10:24→18:03)
[2020-05-21] MEDS: INSULIN GLARGINE,HUM.REC.ANLOG 1,000 UNIT/10 ML VIAL SUBCUT SCH ×2 (10:24→22:32)
[2020-05-21] MEDS: LINEZOLID 600 MG/300 ML RTUPB IV SCH ×2 (10:25→22:32)
[2020-05-21] MEDS: CARVEDILOL 3.125 MG TABLET NG SCH ×2 (10:26→22:33)
[2020-05-21] MEDS: HALOPERIDOL 0.5 MG TABLET NG SCH ×2 (10:26→22:33)
[2020-05-21] MEDS: FAMOTIDINE INJ/PF 20 MG/2 ML SDV IV SCH ×2 (10:42→22:32)
[2020-05-21] MEDS: METHYLPREDNISOLONE INJ 40 MG/1 ML SDV IV SCH (10:42)
[2020-05-21] MEDS: FUROSEMIDE INJ/PF 40 MG/4 ML SDV IV SCH ×2 (10:42→22:32)
[2020-05-21] MEDS: HEPARIN SOD (PORCINE) 1,000 UNIT/ML 10 ML VIAL IV PRN (11:28)
--- NOTE | 2020-05-21 12:15 | PDOC CRITICAL CARE PROG REPORT ---
General Date:: 05/21/20 Resuscitation Status: Full Code Events in the past 12 to 24 Hours:: This 44-year-old -[place] Citizen female presented to [facility] emergency department on 03/21/2020 with complaints of possible presyncope versus syncope in addition to fever, chills, productive cough, dyspnea and exertional dyspnea. She has a history of psychiatric disorders and is known to be a difficult historian. Nonetheless, the patient also was known to have been diagnosed with COVID-19 pneumonia on 03/17/2020 and had subsequently been evaluated in the emergency department. She was apparently discharged home with prescriptions for azithromycin and other medications for symptomatic treatment. She returned with worsening shortness of breath and newly demonstrating supplemental oxygen requirement. 04/09-04/10: Remains intubated. Sedated with Precedex/Versed/fentanyl. On pressure control mode with peak and plateau pressures in the 40s. On insulin infusion for glucose control. On Glucerna + Prosource. KUB obtained showed a gasless abdomen, incongruent with physical exam (possibly due to morbid obesity). Still no BM. 04/11-: Had brisk diuresis with furosemide 40 mg IV single dose (2600 mL urine output), which resulted in a decrease in CVP. However, CVP is now back up to 910. On PRVC mode. ABG this a.m.: 7.46/46/53. Creatinine 0.6. WBC 17.3>11.4. Still no BM. On Versed/fentanyl/Precedex for sedation. Opens eyes to physical stimuli. Tube feeding currently on hold due to high residuals. Of note, even in the absence of tube feeding, the patient is having gastric residuals in the 200s. She does demonstrate spontaneous eye opening. She does not follow commands. 04/13-: Switched to BiVENT/APRV on 04/12/2020 (FiO2 80%, P high 17, T high 9.5 seconds, P low 3, T low 0.5 seconds). ABG this a.m.: 7.42/50/72. Off insulin infusion. Overnight, the patient had an episode of hypoglycemia (40) despite being on trickle tube feeds. Blood cultures (04/13) isolated gram-positive cocci in clusters. Tracheal aspirate (04/13) isolated Staphylococcus aureus. GPC is MSSA sens to rocephin. Still unsure if it's a contaminate. No progress made on ventilator. Changed back to PRVC on 04/16. Still 100% and PEEP 14. 04/18: CXR looks better. Will try weaning today. FiO2 first. 04/19-: Not able to wean yesterday. O2 saturations 95-96%. Will wean PEEP. Down to 10 in effort to lower PEEP for trach which I believe she will need. No weaning on drips yet. Will need trach and PEG. O2 saturations worse, in mid to low 80s on 100%. Talked with Dr. Owen regarding need for trach next week. 04/23: Remains intubated. On rocuronium, Versed and fentanyl infusions. FiO2 95%. PRVC. WBC 13.6. D-dimer 3.14. CRP 59.1. Magnesium 1.5. 04/24: Rocuronium was discontinued yesterday. The patient's ventilator mode was switched to BiVENT. Versed changed to propofol. Still on fentanyl. On BiVENT. [place] sedated. 04/25: Yesterday afternoon, she developed acute hypoxemic decompensation followed by profound hypotension. Clinically, this was highly suspicious for pulmonary embolism. She was started on heparin infusion. SVO2 was found to be 15%. She was started on dobutamine. Ventilator settings were changed. She is still on BiVENT/APRV but now with settings that closely mimic inverse I:E pressure control ventilation. FiO2 100%. P high 20, P low 10, T high 1.5, T low 0.5. 04/26: COVID-19 (HUGH from 04/23) finally returned to negative result. Dobutamine changed to milrinone yesterday. Still on BiVENT/APRV but has been tolerating lower pressures in longer T high times. Had an episode of oxygen desaturation again this morning. Clinically, it appears that she is having increased secretions from the airway, possibly with mucous plugging. Settings were changed subsequent to oxygen desaturation: P high 30, P low 10, T high 1.5, T low 0.5. ABG this a.m.: 7.36/51/69. Diuresing, -869 mL yesterday. proBNP 5880. BM +. 04/27: [place] sedated, synchronous with ventilator. BG this a.m. 7.28/64/78. W BC 25.8 this AM. CRP 200. D-dimer 2.04. 04/28: WBC down to 25.8>14.8 this AM. Not on antibiotics. However, hemoglobin also dropped to 6.6. Repeat hemoglobin 6.2. No obvious blood loss. Blood urine and tracheal aspirate cultures from 04/27 pending. On propofol/Precedex/fentanyl. Triglycerides 183. 04/29: Febrile (T-max 24-hour 102.7 Fahrenheit), reportedly refractory to Tylenol and cooling blanket. WBC 28.3. Hemoglobin 6.2>9 after transfusion of 2 units PRBC yesterday. Started on vancomycin overnight due to gram-positive cocci in trach aspirate (04/27), which are now being reported as MRSA. Also, blood cultures (1 of 2) are growing out Staphylococcus species, possibly a con taminant. Still on propofol/Precedex/fentanyl for sedation. Started Versed overnight as well. On BiVENT/APRV: P high 20, P low 3, T high 5.5, T low 0.5. + PSV 15. 04/30: Bun/Cr slightly up. Vancomycin stopped. Linezolid started. Off propofol, may have had propofol infusion syndrome. 05/01: Only small changes in vent made as tolerated. 05/02: Decrease in H/H today, likely anemia of chronic disease. No apparent signs of bleeding. I was able to lower her inspiratory time (PEEP high) slight ly without any significant change in SPO2. Her FiO2 was also decreased to 90%. No other significant changes. Plan will be to consult surgery for tracheostomy placement. 05/03/2020: Small incremental changes made on the ventilator today. FiO2 weaned slightly. No other significant changes. 05/04/2020: Patient has had a small bit of progress with weaning her FiO2. We will continue as tolerated and make attempts to wean her bilevel as well today. 05/05/2020: No significant changes over the past 24 hours. Patient has been saturating well with 80 to 90% FiO2. Overall plan today is to continue to wean. Patient will need tracheostomy tube. 05/06: Overall no major change. Has been seen by Dr. Manriquez regarding need for trach 05/05. 05/07: Plan for tracheostomy on 05/08. 05/08: Patient underwent uneventful tracheostomy today. 05/09: Starting to come down on sedation. 05/10: Off versed. May have to increase fentanyl. 05/11: Not able to make changes to vent. Not awakening off versed. 05/12: Seems to be calmer with addition of seroquel, although to early to tell. 05/13: Still having intermittent agitation. Seems less. 05/14: Off Precedex infusion this morning. On Ativan and Lortab per NG tube, tapering. Waking up. Follows commands. Mouthing words over ET tube. Occasional cough. Purulent secretions noted from the tracheostomy site. Still on BiVENT (P high 30, P low 10, T high 1.2, T low 0.8 + PSV 10). On cefepime/linezolid for trach aspirate (05/09) isolating E cloacae and S. aureus and MRSA bacteremia (05/09). T-max 100.6 today. 05/15: Continues to be febrile. On cefepime/Zyvox. WBC 22.2. Cultures pending, but it appears preliminary results suggest trach aspirate is isolating gram- negative rods. K 2.6 this morning. 05/16: Afebrile this morning with overall downward trend in temperature curve overnight. Started on meropenem and GINO nebs for gram-negative coverage. Trach wound is isolating Enterobacter cloacae in addition to gram-positive cocci in chains. WBC 22.2>18.2. Mentating well. Follows some commands, hindered by generalized weakness. 05/17: Febrile this morning (afebrile since 1800 yesterday). On meropenem/GINO for gram-negative coverage. Also on Zyvox. Trach wound isolated Enterobacter cloacae and Staph aureus. WBC 18.2>20. 05/18: Gets agitated at times and may be in pain. 05/19: When coughing her O2 saturations will go from 81-95% in less than a minute. Not accurate. Awake at times not following commands. 05/20: FIO2 back up to 100%, not clear why. PSV and PEEP still at 12. 05/21: Only able to make small changes to PEEP and PSV. Still on 90%. Review of systems relevant to events:: Pulmonary, neurological. Reason for ICU Addmission:: acute respiratory failure, covid -19 pneumonia, Has trach, on vent. - Medications: Medications reviewed and adjusted accordingly: Yes Vasopressors:: None Sedation:: Precedex. Physical Exam Vital Signs: Temp Pulse Resp BP Pulse Ox 99.0 F 102 H 23 H 124/78 90 L 05/21/20 08:00 05/21/20 10:00 05/21/20 10:09 05/21/20 10:09 05/21/20 10:09 Intake & Output 05/20/20 05/21/20 05/22/20 06:59 06:59 06:59 Intake Total 2467 3788 274 Output Total 2675 3025 720 Balance -208 763 -446 Weight 140.5 kg 142.2 kg Weight/Height Weight 142.2 kg Height 5 ft 3 in General appearance: PRESENT: no acute distress, morbidly obese Head exam: PRESENT: atraumatic, normocephalic Eye exam: PRESENT: conjunctiva pink, EOMI, PERRLA. ABSENT: scleral icterus Ear exam: PRESENT: normal external ear exam Mouth exam: PRESENT: moist, tongue midline Neck exam: PRESENT: tracheostomy Respiratory exam: PRESENT: clear to auscultation reji. ABSENT: rales, rhonchi, wheezes Cardiovascular exam: PRESENT: RRR. ABSENT: diastolic murmur, rubs, systolic murmur GI/Abdominal exam: PRESENT: normal bowel sounds, soft. ABSENT: distended, guarding, mass, organolmegaly, rebound, tenderness Rectal exam: PRESENT: deferred Gentrourinary exam: PRESENT: indwelling catheter Extremities exam: PRESENT: full ROM. ABSENT: calf tenderness, clubbing, pedal edema Musculoskeletal exam: PRESENT: normal inspection Neurological exam: PRESENT: altered, awake, CN II-XII grossly intact, other - Does not follow commands. Skin exam: PRESENT: dry, intact, warm. ABSENT: cyanosis, rash Tubes/Lines: PRESENT: Central Line, Nasogastic Tube, Other - Trach Laboratory/Radiographs Laboratory Results: 05/21/20 08:15 05/18/20 03:50 05/21/20 05/21/20 08:15 08:15 WBC 18.4 H RBC 2.63 L Hgb 7.7 L Hct 23.0 L MCV 88 MCH 29.3 MCHC 33.5 RDW 21.2 H Plt Count 221 Seg Neutrophils % Not Reportable C-Reactive Protein 22.7 H 03/21/20 04/11/20 04/14/20 21:58 03:05 01:59 Creatine Kinase Troponin I < 0.012 NT-Pro-B Natriuret Pep 192 H 184 H 04/24/20 04/25/20 04/26/20 14:18 09:01 03:53 Creatine Kinase Troponin I 0.012 NT-Pro-B Natriuret Pep 7620 H 5880 H 04/30/20 03:50 Creatine Kinase 301 H Troponin I NT-Pro-B Natriuret Pep Impressions: Abdomen Ultrasound 04/10/20 00:00 IMPRESSION: NO EVIDENCE FOR ASCITES. KUB X-Ray 04/29/20 00:00 IMPRESSION: NG tube is present with side port and tip overlying the body of the stomach. Chest X-Ray 05/16/20 13:33 IMPRESSION: No significant interval change. Bilateral ill-defined infiltrates. All labs, radiographs, diagnostic studies and EKGs were personally reviewed: Yes In addition, reports of radiographic and diagnostic studies were read: Yes Assessment and Plan - Diagnosis (1) Pneumonia due to COVID-19 virus Is this a current diagnosis for this admission?: Yes Plan: She still is needing up to 90% FIO2. She will drop with agitation, coughing. (2) Morbid obesity with BMI of 50.0-59.9, adult Is this a current diagnosis for this admission?: Yes Plan: No change (3) Anemia Is this a current diagnosis for this admission?: Yes Plan: Level 7.7. Dropping slowly but not in need of transfusion. (4) Leukocytosis Qualifiers: Leukocytosis type: unspecified Qualified Code(s): D72.829 - Elevated white blood cell count, unspecified Is this a current diagnosis for this admission?: Yes Plan: WBC 18K, unchanged Plan Summary: Referral to be made to detention vent unit. Critical Time Critical Time (minutes): 35 Level of Care: ICU Anticipated discharge: Other Anticipated DC Timeframe: Other -: 1. The care of a critical patient is a dynamic process. This note is a guest relations representative synopsis but static in nature. The timeframe for treatments given in order is not necessarily the actual time these treatments may have been done. 2. This patient requires critical care secondary to ongoing requirements for t herapy not offered or safe outside the critical care environment. Transfer to a lower level of care will result in altered life or limb morbidity and mortality. 3. Multidisciplinary rounds completed. 4. ABCDE bundle addressed.
[2020-05-21] MEDS ORDERED: DIPHENOXYLATE HCL/ATROP SULF 2.5-0.025 MG TABLET PO ONE (13:18)
[2020-05-21] MEDS: HEPARIN SODIUM,PORCINE/D5W 25,000 UNIT/250 ML RTUINJ IV PRN (14:57)
[2020-05-21] MEDS: DIPHENOXYLATE HCL/ATROP SULF 2.5-0.025 MG TABLET PO PRN (18:47)
[2020-05-21] MEDS: MELATONIN 5 MG TABLET NG SCH (22:33)
[2020-05-22] MEDS: MEROPENEM 500 MG in NORMAL SALINE 50 ML IV SCH ×3 (02:49→17:23)
[2020-05-22] MEDS: DEXMEDETOMIDINE IN 0.9 % NACL 400 MCG/100 ML RTUPB IV PRN ×4 (02:49→20:05)
[2020-05-22] MEDS: INSULIN REG, HUMAN 100 UNIT/ML 3 ML VIAL (PYX) SUBCUT SCH ×4 (05:12→23:47)
[2020-05-22] MEDS: QUETIAPINE FUMARATE 25 MG TABLET NG SCH ×4 (05:43→23:47)
[2020-05-22] MEDS: HYDROCOD/ACETAMIN 7.5-325 MG/15 ML ORAL SOLN UDCUP NG SCH ×4 (05:44→23:47)
[2020-05-22 06:13] LABS: HEMATOCRIT 23.9 % (36.0-47.0); MEAN CORPUSCULAR VOLUME 88 fl (80-97); PLATELET COUNT 212 10^3/uL (150-450); RED BLOOD COUNT 2.72 10^6/uL (3.72-5.28); RED CELL DISTRIBUTION WIDTH 21.7 % (11.5-14.0); WHITE BLOOD COUNT 13.5 10^3/uL (4.0-10.5)
[2020-05-22 06:16] LABS: ARTERIAL BLOOD BASE EXCESS 4.7 mmol/L; ARTERIAL BLOOD H2CO3 1.27 mmol/L (1.05-1.35); ARTERIAL BLOOD O2 SATURATION 93.9 % (94-98); ARTERIAL BLOOD PCO2 42.1 mmHg (35-45); ARTERIAL BLOOD PH 7.46 (7.35-7.45); ARTERIAL BLOOD PO2 65.9 mmHg (80-100); ARTERIAL BLOOD TOTAL CO2 30.3 mmol/L (21-25)
[2020-05-22 06:18] LABS: ARTERIAL BLOOD FIO2 90%
[2020-05-22 06:32] LABS: ANION GAP 5 (5-19); BLOOD UREA NITROGEN 45 mg/dL (7-20); CALCIUM 9.8 mg/dL (8.4-10.2); CARBON DIOXIDE 34 mmol/L (22-30); CHLORIDE 93 mmol/L (98-107); GLUCOSE 122 mg/dL (75-110); POTASSIUM 5.4 mmol/L (3.6-5.0)
[2020-05-22 06:56] LABS: HEMOGLOBIN 7.9 g/dL (12.0-15.5)
[2020-05-22 06:58] LABS: ABSOLUTE LYMPHOCYTES# (MANUAL) 1.8 10^3/uL (0.5-4.7); ABSOLUTE MONOCYTES # (MANUAL) 0.7 10^3/uL (0.1-1.4); BASOPHILS % (MANUAL) 0 % (0-2); EOSINOPHILS % (MANUAL) 2 % (0-6); LYMPHOCYTES % (MANUAL) 13 % (13-45); MONOCYTES % (MANUAL) 5 % (3-13); SEGMENTED NEUTROPHILS % (MAN) 80 % (42-78); TOTAL CELLS COUNTED 100
[2020-05-22 07:00] LABS: POLYCHROMASIA SLIGHT; TOXIC GRANULATION SLIGHT
[2020-05-22 07:01] LABS: OVALOCYTES SLIGHT; POIKILOCYTOSIS 1+; TEAR DROP CELLS SLIGHT
[2020-05-22 07:02] LABS: ANISOCYTOSIS 3+; PLATELET CLUMPS PRESENT; PLATELET COMMENT ADEQUATE
--- NOTE | 2020-05-22 08:22 | PDOC CRITICAL CARE PROG REPORT ---
General Date:: 05/22/20 ICU Day:: 61 Ventilator Day:: 61 Hospital Day:: 51 Resuscitation Status: Full Code Events in the past 12 to 24 Hours:: This 44-year-old -[place] female presented to [facility] emergency department on 03/21/2020 with complaints of possible presyncope versus syncope in addition to fever, chills, productive cough, dyspnea and exertional dyspnea. She has a history of psychiatric disorders and is known to be a difficult historian. Nonetheless, the patient also was known to have been diagnosed with COVID-19 pneumonia on 03/17/2020 and had subsequently been evaluated in the emergency department. She was apparently discharged home with prescriptions for azithromycin and other medications for symptomatic treatment. She returned with worsening shortness of breath and newly demonstrating supplemental oxygen requirement. 04/09-04/10: Remains intubated. Sedated with Precedex/Versed/fentanyl. On pressure control mode with peak and plateau pressures in the 40s. On insulin infusion for glucose control. On Glucerna + Prosource. KUB obtained showed a gasless abdomen, incongruent with physical exam (possibly due to morbid obesity). Still no BM. 04/11-: Had brisk diuresis with furosemide 40 mg IV single dose (2600 mL urine output), which resulted in a decrease in CVP. However, CVP is now back up to 910. On PRVC mode. ABG this a.m.: 7.46/46/53. Creatinine 0.6. WBC 17.3>11.4. Still no BM. On Versed/fentanyl/Precedex for sedation. Opens eyes to physical stimuli. Tube feeding currently on hold due to high residuals. Of note, even in the absence of tube feeding, the patient is having gastric residuals in the 200s. She does demonstrate spontaneous eye opening. She does not follow commands. 04/13-: Switched to BiVENT/APRV on 04/12/2020 (FiO2 80%, P high 17, T high 9.5 seconds, P low 3, T low 0.5 seconds). ABG this a.m.: 7.42/50/72. Off insulin infusion. Overnight, the patient had an episode of hypoglycemia (40) despite being on trickle tube feeds. Blood cultures (04/13) isolated gram-positive cocci in clusters. Tracheal aspirate (04/13) isolated Staphylococcus aureus. GPC is MSSA sens to rocephin. Still unsure if it's a contaminate. No progress made on ventilator. Changed back to PRVC on 04/16. Still 100% and PEEP 14. 04/18: CXR looks better. Will try weaning today. FiO2 first. 04/19-: Not able to wean yesterday. O2 saturations 95-96%. Will wean PEEP. Down to 10 in effort to lower PEEP for trach which I believe she will need. No weaning on drips yet. Will need trach and PEG. O2 saturations worse, in mid to low 80s on 100%. Talked with Dr. Owen regarding need for trach next week. 04/23: Remains intubated. On rocuronium, Versed and fentanyl infusions. FiO2 95%. PRVC. WBC 13.6. D-dimer 3.14. CRP 59.1. Magnesium 1.5. 04/24: Rocuronium was discontinued yesterday. The patient's ventilator mode was switched to BiVENT. Versed changed to propofol. Still on fentanyl. On BiVENT. [place] sedated. 04/25: Yesterday afternoon, she developed acute hypoxemic decompensation followed by profound hypotension. Clinically, this was highly suspicious for pulmonary embolism. She was started on heparin infusion. SVO2 was found to be 15%. She was started on dobutamine. Ventilator settings were changed. She is still on BiVENT/APRV but now with settings that closely mimic inverse I:E pressure control ventilation. FiO2 100%. P high 20, P low 10, T high 1.5, T low 0.5. 04/26: COVID-19 (HUGH from 04/23) finally returned to negative result. Dobutamine changed to milrinone yesterday. Still on BiVENT/APRV but has been tolerating lower pressures in longer T high times. Had an episode of oxygen desaturation again this morning. Clinically, it appears that she is having increased secretions from the airway, possibly with mucous plugging. Settings were changed subsequent to oxygen desaturation: P high 30, P low 10, T high 1.5, T low 0.5. ABG this a.m.: 7.36/51/69. Diuresing, -869 mL yesterday. proBNP 5880. BM +. 04/27: [place] sedated, synchronous with ventilator. BG this a.m. 7.28/64/78. WBC 25.8 this AM. CRP 200. D-dimer 2.04. 04/28: WBC down to 25.8>14.8 this AM. Not on antibiotics. However, hemoglobin also dropped to 6.6. Repeat hemoglobin 6.2. No obvious blood loss. Blood urine and tracheal aspirate cultures from 04/27 pending. On propofol/Pre cedex/fentanyl. Triglycerides 183. 04/29: Febrile (T-max 24-hour 102.7 Fahrenheit), reportedly refractory to Tylenol and cooling blanket. WBC 28.3. Hemoglobin 6.2>9 after transfusion of 2 units PRBC yesterday. Started on vancomycin overnight due to gram-positive cocci in trach aspirate (04/27), which are now being reported as MRSA. Also, blood cultures (1 of 2) are growing out Staphylococcus species, possibly a contaminant. Still on propofol/Precedex/fentanyl for sedation. Started Versed overnight as well. On BiVENT/APRV: P high 20, P low 3, T high 5.5, T low 0.5. + PSV 15. 04/30: Bun/Cr slightly up. Vancomycin stopped. Linezolid started. Off propofol, may have had propofol infusion syndrome. 05/01: Only small changes in vent made as tolerated. 05/02: Decrease in H/H today, likely anemia of chronic disease. No apparent signs of bleeding. I was able to lower her inspiratory time (PEEP high) slightly without any significant change in SPO2. Her FiO2 was also decreased to 90%. No other significant changes. Plan will be to consult surgery for tracheostomy placement. 05/03/2020: Small incremental changes made on the ventilator today. FiO2 weaned slightly. No other significant changes. 05/04/2020: Patient has had a small bit of progress with weaning her FiO2. We will continue as tolerated and make attempts to wean her bilevel as well today. 05/05/2020: No significant changes over the past 24 hours. Patient has been saturating well with 80 to 90% FiO2. Overall plan today is to continue to wean. Patient will need tracheostomy tube. 05/06: Overall no major change. Has been seen by Dr. Manriquez regarding need for trach 05/05. 05/07: Plan for tracheostomy on 05/08. 05/08: Patient underwent uneventful tracheostomy today. 05/09: Starting to come down on sedation. 05/10: Off versed. May have to increase fentanyl. 05/11: Not able to make changes to vent. Not awakening off versed. 05/12: Seems to be calmer with addition of seroquel, although to early to tell. 05/13: Still having intermittent agitation. Seems less. 05/14: Off Precedex infusion this morning. On Ativan and Lortab per NG tube, tapering. Waking up. Follows commands. Mouthing words over ET tube. Occasional cough. Purulent secretions noted from the tracheostomy site. Still on BiVENT (P high 30, P low 10, T high 1.2, T low 0.8 + PSV 10). On cefepime/linezolid for trach aspirate (05/09) isolating E cloacae and S. aureus and MRSA bacteremia (05/09). T-max 100.6 today. 05/15: Continues to be febrile. On cefepime/Zyvox. WBC 22.2. Cultures pending, but it appears preliminary results suggest trach aspirate is isolating gram- negative rods. K 2.6 this morning. 05/16: Afebrile this morning with overall downward trend in temperature curve overnight. Started on meropenem and GINO nebs for gram-negative coverage. Trach wound is isolating Enterobacter cloacae in addition to gram-positive cocci in chains. WBC 22.2>18.2. Mentating well. Follows some commands, hindered by generalized weakness. 05/17: Febrile this morning (afebrile since 1800 yesterday). On meropenem/GINO for gram-negative coverage. Also on Zyvox. Trach wound isolated Enterobacter cloacae and Staph aureus. WBC 18.2>20. 05/18: Gets agitated at times and may be in pain. 05/19: When coughing her O2 saturations will go from 81-95% in less than a minute. Not accurate. Awake at times not following commands. 05/20: FIO2 back up to 100%, not clear why. PSV and PEEP still at 12. 05/21: Only able to make small changes to PEEP and PSV. Still on 90%. 05/22: PEEP and PSV at 10. FIO2 still 90%. Review of systems relevant to events:: Pulmonary, neurological. Reason for ICU Addmission:: acute respiratory failure, covid -19 pneumonia, Has trach, on vent. - Medications: Medications reviewed and adjusted accordingly: Yes Vasopressors:: None Sedation:: Precedex. Physical Exam Vital Signs: Temp Pulse Resp BP Pulse Ox 98.2 F 91 23 H 121/73 96 05/22/20 08:00 05/22/20 07:51 05/22/20 07:47 05/22/20 07:47 05/22/20 07:47 Intake & Output 05/21/20 05/22/20 05/23/20 06:59 06:59 06:59 Intake Total 3788 2876 Output Total 3025 5160 410 Balance 763 -2284 -410 Weight 142.2 kg 139.6 kg Weight/Height Weight 139.6 kg Height 5 ft 3 in General appearance: PRESENT: no acute distress, morbidly obese Head exam: PRESENT: atraumatic, normocephalic Eye exam: PRESENT: conjunctiva pink, EOMI, PERRLA. ABSENT: scleral icterus Ear exam: PRESENT: normal external ear exam Mouth exam: PRESENT: moist, tongue midline Respiratory exam: PRESENT: clear to auscultation reji. ABSENT: rales, rhonchi, wheezes Cardiovascular exam: PRESENT: RRR. ABSENT: diastolic murmur, rubs, systolic murmur GI/Abdominal exam: PRESENT: normal bowel sounds, soft. ABSENT: distended, guarding, mass, organolmegaly, rebound, tenderness Rectal exam: PRESENT: deferred Gentrourinary exam: PRESENT: indwelling catheter Extremities exam: PRESENT: full ROM. ABSENT: calf tenderness, clubbing, pedal edema Musculoskeletal exam: PRESENT: normal inspection Neurological exam: PRESENT: altered. ABSENT: other - Resting and not agitated this AM. Skin exam: PRESENT: dry, intact, warm. ABSENT: cyanosis, rash Tubes/Lines: PRESENT: Central Line, Nasogastic Tube, Other - Trach Laboratory/Radiographs Laboratory Results: 05/22/20 04:25 05/22/20 04:25 05/21/20 05/21/20 05/22/20 08:15 08:15 04:25 WBC 18.4 H RBC 2.63 L Hgb 7.7 L Hct 23.0 L MCV 88 MCH 29.3 MCHC 33.5 RDW 21.2 H Plt Count 221 Seg Neutrophils % Not Reportable Carbonic Acid Cancelled HCO3/H2CO3 Ratio Cancelled ABG pH Cancelled ABG pCO2 Cancelled ABG pO2 Cancelled ABG HCO3 Cancelled ABG O2 Saturation Cancelled ABG Base Excess Cancelled FiO2 Cancelled Sodium Potassium Chloride Carbon Dioxide Anion Gap BUN Creatinine Est GFR ( Amer) Glucose Calcium C-Reactive Protein 22.7 H 05/22/20 05/22/20 05/22/20 04:25 04:25 06:02 WBC 13.5 H RBC 2.72 L Hgb 7.9 L Hct 23.9 L MCV 88 MCH 29.0 MCHC 33.0 RDW 21.7 H Plt Count 212 Seg Neutrophils % Not Reportable Carbonic Acid 1.27 HCO3/H2CO3 Ratio 22:1 ABG pH 7.46 H ABG pCO2 42.1 ABG pO2 65.9 L ABG HCO3 29.0 H ABG O2 Saturation 93.9 L ABG Base Excess 4.7 FiO2 90% Sodium 131.5 L Potassium 5.4 H Chloride 93 L Carbon Dioxide 34 H Anion Gap 5 BUN 45 H Creatinine 0.65 Est GFR ( Amer) > 60 Glucose 122 H Calcium 9.8 C-Reactive Protein 03/21/20 04/11/20 04/14/20 21:58 03:05 01:59 Creatine Kinase Troponin I < 0.012 NT-Pro-B Natriuret Pep 192 H 184 H 04/24/20 04/25/20 04/26/20 14:18 09:01 03:53 Creatine Kinase Troponin I 0.012 NT-Pro-B Natriuret Pep 7620 H 5880 H 04/30/20 03:50 Creatine Kinase 301 H Troponin I NT-Pro-B Natriuret Pep Impressions: Abdomen Ultrasound 04/10/20 00:00 IMPRESSION: NO EVIDENCE FOR ASCITES. KUB X-Ray 04/29/20 00:00 IMPRESSION: NG tube is present with side port and tip overlying the body of the stomach. Chest X-Ray 05/16/20 13:33 IMPRESSION: No significant interval change. Bilateral ill-defined infiltrates. All labs, radiographs, diagnostic studies and EKGs were personally reviewed: Yes In addition, reports of radiographic and diagnostic studies were read: Yes Assessment and Plan - Diagnosis (1) Pneumonia due to COVID-19 virus Is this a current diagnosis for this admission?: Yes Plan: Negative for virus. Still vent dependant on high support. Needs long-term vent unit. (2) Morbid obesity with BMI of 50.0-59.9, adult Is this a current diagnosis for this admission?: Yes Plan: Unchanged (3) Anemia Is this a current diagnosis for this admission?: Yes Plan: Largely of chronic disease and inflammation at this point. Plan Summary: Continue to slowly wean down FIO2. Critical Time Critical Time (minutes): 35 Level of Care: ICU Anticipated discharge: Other Anticipated DC Timeframe: Other -: 1. The care of a critical patient is a dynamic process. This note is a passenger relations representative synopsis but static in nature. The timeframe for treatments given in order is not necessarily the actual time these treatments may have been done. 2. This patient requires critical care secondary to ongoing requirements for therapy not offered or safe outside the critical care environment. Transfer to a lower level of care will result in altered life or limb morbidity and mortality. 3. Multidisciplinary rounds completed. 4. ABCDE bundle addressed.
[2020-05-22] MEDS: ALBUTEROL SULFATE 0.083% NEB 2.5 MG/3 ML AMPUL NEB PRN ×2 (08:24→21:06)
[2020-05-22] MEDS: BUDESONIDE NEB 0.25 MG/2 ML AMPUL NEB SCH ×2 (08:24→21:06)
[2020-05-22] MEDS: TOBRAMYCIN SULFATE NEB 40 MG/ML 30 ML NEB SCH (08:27)
[2020-05-22] MEDS: NORMAL SALINE 1000 ML 1,000 ML IV PRN ×2 (08:40→18:42)
[2020-05-22] MEDS: HEPARIN SODIUM,PORCINE/D5W 25,000 UNIT/250 ML RTUINJ IV PRN (10:00)
[2020-05-22] MEDS: HALOPERIDOL 0.5 MG TABLET NG SCH ×2 (10:13→21:44)
[2020-05-22] MEDS: CARVEDILOL 3.125 MG TABLET NG SCH ×2 (10:13→21:45)
[2020-05-22] MEDS: AMINO AC/PROTEIN HYDR/WHEY PRO 11 GM/45 ML PKT NG SCH ×3 (10:14→17:23)
[2020-05-22] MEDS: FAMOTIDINE INJ/PF 20 MG/2 ML SDV IV SCH ×2 (10:15→21:45)
[2020-05-22] MEDS: METHYLPREDNISOLONE INJ 40 MG/1 ML SDV IV SCH (10:15)
[2020-05-22] MEDS: INSULIN GLARGINE,HUM.REC.ANLOG 1,000 UNIT/10 ML VIAL SUBCUT SCH ×2 (10:15→21:45)
[2020-05-22] MEDS: FUROSEMIDE INJ/PF 40 MG/4 ML SDV IV SCH ×2 (10:15→21:45)
[2020-05-22] MEDS: LINEZOLID 600 MG/300 ML RTUPB IV SCH ×2 (10:16→21:51)
[2020-05-22] MEDS: HYDROMORPHONE HCL INJ/PF 2 MG/ML AMPULE IV PRN (11:58)
[2020-05-22] MEDS: DIPHENOXYLATE HCL/ATROP SULF 2.5-0.025 MG TABLET PO PRN (11:59)
[2020-05-22] MEDS: MELATONIN 5 MG TABLET NG SCH (21:45)
[2020-05-23] MEDS: DEXMEDETOMIDINE IN 0.9 % NACL 400 MCG/100 ML RTUPB IV PRN ×4 (01:18→18:10)
[2020-05-23] MEDS: NORMAL SALINE 1000 ML 1,000 ML IV PRN ×2 (04:42→14:50)
[2020-05-23 04:47] LABS: HEMATOCRIT 24.9 % (36.0-47.0); HEMOGLOBIN 8.2 g/dL (12.0-15.5); MEAN CORPUSCULAR VOLUME 88 fl (80-97); PLATELET COUNT 225 10^3/uL (150-450); RED BLOOD COUNT 2.84 10^6/uL (3.72-5.28); RED CELL DISTRIBUTION WIDTH 21.9 % (11.5-14.0)
[2020-05-23 05:07] LABS: PARTIAL THROMBOPLASTIN TIME 57.1 SEC (23.5-35.8)
[2020-05-23 05:08] LABS: D-DIMER 2.11 ug/mL (0.00-0.50)
[2020-05-23 05:09] LABS: ALBUMIN 3.4 g/dL (3.5-5.0); ALKALINE PHOSPHATASE 97 U/L (38-126); ANION GAP 7 (5-19); ASPARTATE AMINO TRANSFERASE 25 U/L (14-36); BILIRUBIN,DIRECT 0.3 mg/dL (0.0-0.4); BILIRUBIN,TOTAL 1.3 mg/dL (0.2-1.3); BLOOD UREA NITROGEN 37 mg/dL (7-20); C-REACTIVE PROTEIN 28.4 mg/L (<10.0); CARBON DIOXIDE 34 mmol/L (22-30); CHLORIDE 94 mmol/L (98-107); GLUCOSE 133 mg/dL (75-110); TOTAL PROTEIN 6.4 g/dL (6.3-8.2)
[2020-05-23 05:16] LABS: POTASSIUM 4.2 mmol/L (3.6-5.0)
[2020-05-23] MEDS: QUETIAPINE FUMARATE 25 MG TABLET NG SCH ×3 (06:11→18:23)
[2020-05-23] MEDS: HYDROCOD/ACETAMIN 7.5-325 MG/15 ML ORAL SOLN UDCUP NG SCH ×3 (06:11→18:00)
[2020-05-23] MEDS: HEPARIN SOD (PORCINE) 1,000 UNIT/ML 10 ML VIAL IV PRN (06:12)
[2020-05-23] MEDS: INSULIN REG, HUMAN 100 UNIT/ML 3 ML VIAL (PYX) SUBCUT SCH ×3 (06:12→18:24)
[2020-05-23] MEDS: HEPARIN SODIUM,PORCINE/D5W 25,000 UNIT/250 ML RTUINJ IV PRN (06:13)
[2020-05-23] MEDS: HYDROMORPHONE HCL INJ/PF 2 MG/ML AMPULE IV PRN ×3 (07:05→22:39)
[2020-05-23] MEDS: ALBUTEROL SULFATE 0.083% NEB 2.5 MG/3 ML AMPUL NEB PRN ×2 (07:50→20:16)
[2020-05-23] MEDS: BUDESONIDE NEB 0.25 MG/2 ML AMPUL NEB SCH ×2 (07:50→20:16)
--- NOTE | 2020-05-23 09:22 | RADIOLOGY REPORT (SQ) ---
EXAM DESCRIPTION: CHEST SINGLE VIEW IMAGES COMPLETED DATE/TIME: 05/23/2020 6:39 am REASON FOR STUDY: vent COMPARISON: None. NUMBER OF VIEWS: One view. TECHNIQUE: Single frontal radiographic image of the chest acquired. LIMITATIONS: None. FINDINGS: LUNGS AND PLEURA: Stable appearance. MEDIASTINUM AND HEART: Stable heart size and mediastinal structures. SUPPORT DEVICES: Appropriate location without change. BONY STRUCTURES: No acute findings. HARDWARE: None. OTHER: No other significant finding. IMPRESSION: STABLE APPEARANCE OF THE CHEST. SUPPORT DEVICES UNCHANGED. Reading location - IP/workstation name: [email or web address]
[2020-05-23] MEDS: INSULIN GLARGINE,HUM.REC.ANLOG 1,000 UNIT/10 ML VIAL SUBCUT SCH ×2 (10:00→22:39)
[2020-05-23] MEDS: FUROSEMIDE INJ/PF 40 MG/4 ML SDV IV SCH ×2 (10:18→22:39)
[2020-05-23] MEDS: FAMOTIDINE INJ/PF 20 MG/2 ML SDV IV SCH ×2 (10:18→22:38)
[2020-05-23] MEDS: METHYLPREDNISOLONE INJ 40 MG/1 ML SDV IV SCH (10:21)
[2020-05-23] MEDS: AMINO AC/PROTEIN HYDR/WHEY PRO 11 GM/45 ML PKT NG SCH ×3 (10:21→18:24)
[2020-05-23] MEDS: HALOPERIDOL 0.5 MG TABLET NG SCH ×2 (10:21→22:38)
[2020-05-23] MEDS: LINEZOLID 600 MG/300 ML RTUPB IV SCH ×2 (10:22→22:41)
[2020-05-23] MEDS: CARVEDILOL 3.125 MG TABLET NG SCH ×2 (10:22→22:38)
[2020-05-23] MEDS: MELATONIN 5 MG TABLET NG SCH (22:38)
[2020-05-23] MEDS: LABETALOL HCL INJ 20 MG/4 ML DISP.SYRIN IV PRN (22:40)
[2020-05-24] MEDS: HYDROCOD/ACETAMIN 7.5-325 MG/15 ML ORAL SOLN UDCUP NG SCH ×3 (00:44→12:47)
[2020-05-24] MEDS: INSULIN REG, HUMAN 100 UNIT/ML 3 ML VIAL (PYX) SUBCUT SCH ×4 (00:44→18:18)
[2020-05-24] MEDS: DEXMEDETOMIDINE IN 0.9 % NACL 400 MCG/100 ML RTUPB IV PRN ×5 (00:44→21:00)
[2020-05-24] MEDS: QUETIAPINE FUMARATE 25 MG TABLET NG SCH ×4 (00:45→18:19)
[2020-05-24] MEDS: HEPARIN SODIUM,PORCINE/D5W 25,000 UNIT/250 ML RTUINJ IV PRN ×2 (00:45→14:00)
[2020-05-24] MEDS: NORMAL SALINE 1000 ML 1,000 ML IV PRN ×3 (00:45→22:52)
[2020-05-24 04:28] LABS: HEMATOCRIT 24.5 % (36.0-47.0); MEAN CORPUSCULAR HEMOGLOBIN 28.6 pg (27.0-33.4); MEAN CORPUSCULAR HGB CONC 32.7 g/dL (32.0-36.0); MEAN CORPUSCULAR VOLUME 88 fl (80-97); RED CELL DISTRIBUTION WIDTH 21.6 % (11.5-14.0); WHITE BLOOD COUNT 17.1 10^3/uL (4.0-10.5)
[2020-05-24 05:12] LABS: ABSOLUTE LYMPHOCYTES# (MANUAL) 2.6 10^3/uL (0.5-4.7); ABSOLUTE MONOCYTES # (MANUAL) 1.2 10^3/uL (0.1-1.4); BAND NEUTROPHILS % (MANUAL) 1 % (3-5); BASOPHILS % (MANUAL) 0 % (0-2); EOSINOPHILS % (MANUAL) 0 % (0-6); LYMPHOCYTES % (MANUAL) 15 % (13-45); MONOCYTES % (MANUAL) 7 % (3-13); NUCLEATED RED BLOOD CELLS 2 /100 WBC (0); SEGMENTED NEUTROPHILS % (MAN) 77 % (42-78); TOTAL CELLS COUNTED 100
[2020-05-24 05:13] LABS: ALBUMIN 3.1 g/dL (3.5-5.0); ALKALINE PHOSPHATASE 97 U/L (38-126); ANION GAP 6 (5-19); ANISOCYTOSIS 2+; ASPARTATE AMINO TRANSFERASE 21 U/L (14-36); BILIRUBIN,DIRECT 0.3 mg/dL (0.0-0.4); BILIRUBIN,TOTAL 1.2 mg/dL (0.2-1.3); BLOOD UREA NITROGEN 33 mg/dL (7-20); CALCIUM 9.8 mg/dL (8.4-10.2); CARBON DIOXIDE 34 mmol/L (22-30); CHLORIDE 94 mmol/L (98-107); GLUCOSE 137 mg/dL (75-110); OVALOCYTES SLIGHT; POIKILOCYTOSIS SLIGHT; POLYCHROMASIA 1+; POTASSIUM 3.9 mmol/L (3.6-5.0); TOTAL PROTEIN 6.1 g/dL (6.3-8.2)
[2020-05-24 05:14] LABS: PLATELET CLUMPS PRESENT; PLATELET COMMENT ADEQUATE; PLATELET COUNT 228 10^3/uL (150-450); STOMATOCYTES 1+; TARGET CELLS 1+
[2020-05-24] MEDS: LABETALOL HCL INJ 20 MG/4 ML DISP.SYRIN IV PRN (07:50)
[2020-05-24] MEDS: BUDESONIDE NEB 0.25 MG/2 ML AMPUL NEB SCH ×2 (08:12→19:25)
[2020-05-24] MEDS: METHYLPREDNISOLONE INJ 40 MG/1 ML SDV IV SCH (10:21)
[2020-05-24] MEDS: HALOPERIDOL 0.5 MG TABLET NG SCH ×2 (10:21→22:41)
[2020-05-24] MEDS: INSULIN GLARGINE,HUM.REC.ANLOG 1,000 UNIT/10 ML VIAL SUBCUT SCH ×2 (10:22→22:46)
[2020-05-24] MEDS: FAMOTIDINE INJ/PF 20 MG/2 ML SDV IV SCH ×2 (10:22→22:47)
[2020-05-24] MEDS: CARVEDILOL 3.125 MG TABLET NG SCH ×2 (10:22→22:45)
[2020-05-24] MEDS: FUROSEMIDE INJ/PF 40 MG/4 ML SDV IV SCH ×2 (10:22→22:41)
[2020-05-24] MEDS: AMINO AC/PROTEIN HYDR/WHEY PRO 11 GM/45 ML PKT NG SCH ×3 (11:48→18:19)
--- NOTE | 2020-05-24 12:03 | PDOC CRITICAL CARE PROG REPORT ---
General Date:: 05/24/20 Resuscitation Status: Full Code Events in the past 12 to 24 Hours:: This 44-year-old -[place] female presented to [facility] emergency department on 03/21/2020 with complaints of possible presyncope versus syncope in addition to fever, chills, productive cough, dyspnea and exertional dyspnea. She has a history of psychiatric disorders and is known to be a difficult historian. Nonetheless, the patient also was known to have been diagnosed with COVID-19 pneumonia on 03/17/2020 and had subsequently been evaluated in the emergency department. She was apparently discharged home with prescriptions for azithromycin and other medications for symptomatic treatment. She returned with worsening shortness of breath and newly demonstrating supplemental oxygen requirement. 04/09-04/10: Remains intubated. Sedated with Precedex/Versed/fentanyl. On pressure control mode with peak and plateau pressures in the 40s. On insulin infusion for glucose control. On Glucerna + Prosource. KUB obtained showed a gasless abdomen, incongruent with physical exam (possibly due to morbid obesity). Still no BM. 04/11-: Had brisk diuresis with furosemide 40 mg IV single dose (2600 mL urine output), which resulted in a decrease in CVP. However, CVP is now back up to 910. On PRVC mode. ABG this a.m.: 7.46/46/53. Creatinine 0.6. WBC 17.3>11.4. Still no BM. On Versed/fentanyl/Precedex for sedation. Opens eyes to physical stimuli. Tube feeding currently on hold due to high residuals. Of note, even in the absence of tube feeding, the patient is having gastric residuals in the 200s. She does demonstrate spontaneous eye opening. She does not follow commands. 04/13-: Switched to BiVENT/APRV on 04/12/2020 (FiO2 80%, P high 17, T high 9.5 seconds, P low 3, T low 0.5 seconds). ABG this a.m.: 7.42/50/72. Off insulin infusion. Overnight, the patient had an episode of hypoglycemia (40) despite being on trickle tube feeds. Blood cultures (04/13) isolated gram-positive cocci in clusters. Tracheal aspirate (04/13) isolated Staphylococcus aureus. GPC is MSSA sens to rocephin. Still unsure if it's a contaminate. No progress made on ventilator. Changed back to PRVC on 04/16. Still 100% and PEEP 14. 04/18: CXR looks better. Will try weaning today. FiO2 first. 04/19-: Not able to wean yesterday. O2 saturations 95-96%. Will wean PEEP. Down to 10 in effort to lower PEEP for trach which I believe she will need. No weaning on drips yet. Will need trach and PEG. O2 saturations worse, in mid to low 80s on 100%. Talked with Dr. Owen regarding need for trach next week. 04/23: Remains intubated. On rocuronium, Versed and fentanyl infusions. FiO2 95%. PRVC. WBC 13.6. D-dimer 3.14. CRP 59.1. Magnesium 1.5. 04/24: Rocuronium was discontinued yesterday. The patient's ventilator mode was switched to BiVENT. Versed changed to propofol. Still on fentanyl. On BiVENT. Onton sedated. 04/25: Yesterday afternoon, she developed acute hypoxemic decompensation followed by profound hypotension. Clinically, this was highly suspicious for pulmonary embolism. She was started on heparin infusion. SVO2 was found to be 15%. She was started on dobutamine. Ventilator settings were changed. She is still on BiVENT/APRV but now with settings that closely mimic inverse I:E pressure control ventilation. FiO2 100%. P high 20, P low 10, T high 1.5, T low 0.5. 04/26: COVID-19 (HUGH from 04/23) finally returned to negative result. Dobutamine changed to milrinone yesterday. Still on BiVENT/APRV but has been tolerating lower pressures in longer T high times. Had an episode of oxygen desaturation again this morning. Clinically, it appears that she is having increased secretions from the airway, possibly with mucous plugging. Settings were changed subsequent to oxygen desaturation: P high 30, P low 10, T high 1.5, T low 0.5. ABG this a.m.: 7.36/51/69. Diuresing, -869 mL yesterday. proBNP 5880. BM +. 04/27: Onton sedated, synchronous with ventilator. BG this a.m. 7.28/64/78. W BC 25.8 this AM. CRP 200. D-dimer 2.04. 04/28: WBC down to 25.8>14.8 this AM. Not on antibiotics. However, hemoglobin also dropped to 6.6. Repeat hemoglobin 6.2. No obvious blood loss. Blood urine and tracheal aspirate cultures from 04/27 pending. On propofol/Precedex/fentanyl. Triglycerides 183. 04/29: Febrile (T-max 24-hour 102.7 Fahrenheit), reportedly refractory to Tylenol and cooling blanket. WBC 28.3. Hemoglobin 6.2>9 after transfusion of 2 units PRBC yesterday. Started on vancomycin overnight due to gram-positive cocci in trach aspirate (04/27), which are now being reported as MRSA. Also, blood cultures (1 of 2) are growing out Staphylococcus species, possibly a con taminant. Still on propofol/Precedex/fentanyl for sedation. Started Versed overnight as well. On BiVENT/APRV: P high 20, P low 3, T high 5.5, T low 0.5. + PSV 15. 04/30: Bun/Cr slightly up. Vancomycin stopped. Linezolid started. Off propofol, may have had propofol infusion syndrome. 05/01: Only small changes in vent made as tolerated. 05/02: Decrease in H/H today, likely anemia of chronic disease. No apparent signs of bleeding. I was able to lower her inspiratory time (PEEP high) slight ly without any significant change in SPO2. Her FiO2 was also decreased to 90%. No other significant changes. Plan will be to consult surgery for tracheostomy placement. 05/03/2020: Small incremental changes made on the ventilator today. FiO2 weaned slightly. No other significant changes. 05/04/2020: Patient has had a small bit of progress with weaning her FiO2. We will continue as tolerated and make attempts to wean her bilevel as well today. 05/05/2020: No significant changes over the past 24 hours. Patient has been saturating well with 80 to 90% FiO2. Overall plan today is to continue to wean. Patient will need tracheostomy tube. 05/06: Overall no major change. Has been seen by Dr. Manriquez regarding need for trach 05/05. 05/07: Plan for tracheostomy on 05/08. 05/08: Patient underwent uneventful tracheostomy today. 05/09: Starting to come down on sedation. 05/10: Off versed. May have to increase fentanyl. 05/11: Not able to make changes to vent. Not awakening off versed. 05/12: Seems to be calmer with addition of seroquel, although to early to tell. 05/13: Still having intermittent agitation. Seems less. 05/14: Off Precedex infusion this morning. On Ativan and Lortab per NG tube, tapering. Waking up. Follows commands. Mouthing words over ET tube. Occasional cough. Purulent secretions noted from the tracheostomy site. Still on BiVENT (P high 30, P low 10, T high 1.2, T low 0.8 + PSV 10). On cefepime/linezolid for trach aspirate (05/09) isolating E cloacae and S. aureus and MRSA bacteremia (05/09). T-max 100.6 today. 05/15: Continues to be febrile. On cefepime/Zyvox. WBC 22.2. Cultures pending, but it appears preliminary results suggest trach aspirate is isolating gram- negative rods. K 2.6 this morning. 05/16: Afebrile this morning with overall downward trend in temperature curve overnight. Started on meropenem and GINO nebs for gram-negative coverage. Trach wound is isolating Enterobacter cloacae in addition to gram-positive cocci in chains. WBC 22.2>18.2. Mentating well. Follows some commands, hindered by generalized weakness. 05/17: Febrile this morning (afebrile since 1800 yesterday). On meropenem/GINO for gram-negative coverage. Also on Zyvox. Trach wound isolated Enterobacter cloacae and Staph aureus. WBC 18.2>20. 05/18: Gets agitated at times and may be in pain. 05/19: When coughing her O2 saturations will go from 81-95% in less than a minute. Not accurate. Awake at times not following commands. 05/20: FIO2 back up to 100%, not clear why. PSV and PEEP still at 12. 05/21: Only able to make small changes to PEEP and PSV. Still on 90%. 05/22: PEEP and PSV at 10. FIO2 still 90%. 05/24: No change Review of systems relevant to events:: Pulmonary, neurological. Reason for ICU Addmission:: acute respiratory failure, covid -19 pneumonia, Has trach, on vent. - Medications: Medications reviewed and adjusted accordingly: Yes Vasopressors:: None Sedation:: Precedex Physical Exam Vital Signs: Temp Pulse Resp BP Pulse Ox 98.8 F 118 H 32 H 182/150 H 91 L 05/24/20 08:00 05/24/20 08:40 05/24/20 10:12 05/24/20 10:12 05/24/20 11:47 Intake & Output 05/23/20 05/24/20 05/25/20 06:59 06:59 06:59 Intake Total 5096 3403 1250 Output Total 4335 3320 225 Balance 025 41 9008 Weight 137 kg 141.3 kg Weight/Height Weight 141.3 kg Height 5 ft 3 in General appearance: PRESENT: no acute distress, morbidly obese Head exam: PRESENT: atraumatic, normocephalic Eye exam: PRESENT: conjunctiva pink, EOMI, PERRLA. ABSENT: scleral icterus Ear exam: PRESENT: normal external ear exam Mouth exam: PRESENT: moist, tongue midline Neck exam: PRESENT: tracheostomy Respiratory exam: PRESENT: clear to auscultation reji, tachypnea. ABSENT: rales, rhonchi, wheezes Cardiovascular exam: PRESENT: RRR, tachycardia. ABSENT: diastolic murmur, rubs, systolic murmur GI/Abdominal exam: PRESENT: normal bowel sounds, soft. ABSENT: distended, guarding, mass, organolmegaly, rebound, tenderness Rectal exam: PRESENT: deferred Gentrourinary exam: PRESENT: indwelling catheter Extremities exam: PRESENT: full ROM. ABSENT: calf tenderness, clubbing, pedal edema Musculoskeletal exam: PRESENT: normal inspection Neurological exam: PRESENT: altered, awake, other - Not command following Psychiatric exam: PRESENT: agitated - At times Skin exam: PRESENT: dry, intact, warm. ABSENT: cyanosis, rash Tubes/Lines: PRESENT: Nasogastic Tube, Other - Trach Laboratory/Radiographs Laboratory Results: 05/24/20 03:46 05/24/20 03:46 01/14/21 01/14/21 03:46 03:46 WBC 17.1 H RBC 2.80 L Hgb 8.0 L Hct 24.5 L MCV 88 MCH 28.6 MCHC 32.7 RDW 21.6 H Plt Count 228 Seg Neutrophils % Not Reportable Sodium 134.1 L Potassium 3.9 Chloride 94 L Carbon Dioxide 34 H Anion Gap 6 BUN 33 H Creatinine 0.50 L Est GFR ( Amer) > 60 Glucose 137 H Calcium 9.8 Magnesium 1.5 L Total Bilirubin 1.2 AST 21 Alkaline Phosphatase 97 Total Protein 6.1 L Albumin 3.1 L 03/21/20 04/11/20 04/14/20 21:58 03:05 01:59 Creatine Kinase Troponin I < 0.012 NT-Pro-B Natriuret Pep 192 H 184 H 04/24/20 04/25/20 04/26/20 14:18 09:01 03:53 Creatine Kinase Troponin I 0.012 NT-Pro-B Natriuret Pep 7620 H 5880 H 04/30/20 03:50 Creatine Kinase 301 H Troponin I NT-Pro-B Natriuret Pep Impressions: Abdomen Ultrasound 04/10/20 00:00 IMPRESSION: NO EVIDENCE FOR ASCITES. KUB X-Ray 04/29/20 00:00 IMPRESSION: NG tube is present with side port and tip overlying the body of the stomach. Chest X-Ray 05/23/20 04:00 IMPRESSION: STABLE APPEARANCE OF THE CHEST. SUPPORT DEVICES UNCHANGED. All labs, radiographs, diagnostic studies and EKGs were personally reviewed: Yes In addition, reports of radiographic and diagnostic studies were read: Yes Assessment and Plan - Diagnosis (1) Pneumonia due to COVID-19 virus Is this a current diagnosis for this admission?: Yes Plan: Tested negative but still having post-COVID respiratory difficulties. (2) Morbid obesity with BMI of 50.0-59.9, adult Is this a current diagnosis for this admission?: Yes (3) Anemia Is this a current diagnosis for this admission?: Yes Plan: Hgb stable at 8.0. No sign of bleeding. Plan Summary: Her high FIO2 and agitation are the limiting factors in getting her placed Critical Time Critical Time (minutes): 35 Level of Care: ICU Anticipated discharge: Other Anticipated DC Timeframe: Other -: 1. The care of a critical patient is a dynamic process. This note is a event representative synopsis but static in nature. The timeframe for treatments given in order is not necessarily the actual time these treatments may have been done. 2. This patient requires critical care secondary to ongoing requirements for therapy not offered or safe outside the critical care environment. Transfer to a lower level of care will result in altered life or limb morbidity and mortality. 3. Multidisciplinary rounds completed. 4. ABCDE bundle addressed.
[2020-05-24] MEDS ORDERED: HEPARIN SODIUM,PORCINE/D5W 25,000 UNIT/250 ML RTUINJ IV PRN (14:39)
[2020-05-24] MEDS ORDERED: HEPARIN SOD (PORCINE) 1,000 UNIT/ML 10 ML VIAL IV PRN (15:00)
[2020-05-24] MEDS: HYDROMORPHONE HCL INJ/PF 2 MG/ML AMPULE IV PRN (18:33)
[2020-05-24] MEDS: ALBUTEROL SULFATE 0.083% NEB 2.5 MG/3 ML AMPUL NEB PRN (19:25)
[2020-05-24] MEDS: MELATONIN 5 MG TABLET NG SCH (22:41)
[2020-05-24] MEDS ORDERED: HALOPERIDOL 0.5 MG TABLET ONE (22:45)
[2020-05-25] MEDS: QUETIAPINE FUMARATE 25 MG TABLET NG SCH ×4 (00:24→18:08)
[2020-05-25] MEDS: INSULIN REG, HUMAN 100 UNIT/ML 3 ML VIAL (PYX) SUBCUT SCH ×4 (00:25→17:14)
[2020-05-25] MEDS: HYDROMORPHONE HCL INJ/PF 2 MG/ML AMPULE IV PRN (01:19)
[2020-05-25] MEDS: DEXMEDETOMIDINE IN 0.9 % NACL 400 MCG/100 ML RTUPB IV PRN ×4 (02:00→17:37)
[2020-05-25 04:59] LABS: HEMATOCRIT 24.6 % (36.0-47.0); MEAN CORPUSCULAR HEMOGLOBIN 29.4 pg (27.0-33.4); MEAN CORPUSCULAR HGB CONC 32.8 g/dL (32.0-36.0); MEAN CORPUSCULAR VOLUME 90 fl (80-97); PLATELET COUNT 231 10^3/uL (150-450); RED BLOOD COUNT 2.73 10^6/uL (3.72-5.28); RED CELL DISTRIBUTION WIDTH 22.3 % (11.5-14.0); WHITE BLOOD COUNT 17.5 10^3/uL (4.0-10.5)
[2020-05-25 05:00] LABS: PARTIAL THROMBOPLASTIN TIME 106.5 SEC (23.5-35.8)
[2020-05-25 05:01] LABS: D-DIMER 1.91 ug/mL (0.00-0.50)
[2020-05-25 05:30] LABS: ABSOLUTE LYMPHOCYTES# (MANUAL) 1.9 10^3/uL (0.5-4.7); ABSOLUTE MONOCYTES # (MANUAL) 1.8 10^3/uL (0.1-1.4); BASOPHILS % (MANUAL) 0 % (0-2); EOSINOPHILS % (MANUAL) 0 % (0-6); LYMPHOCYTES % (MANUAL) 11 % (13-45); MONOCYTES % (MANUAL) 10 % (3-13); NUCLEATED RED BLOOD CELLS 2 /100 WBC (0); SEGMENTED NEUTROPHILS % (MAN) 79 % (42-78); TOTAL CELLS COUNTED 100
[2020-05-25 05:33] LABS: ANISOCYTOSIS 3+; HYPOCHROMASIA SLIGHT; OVALOCYTES SLIGHT; PLATELET COMMENT ADEQUATE; POIKILOCYTOSIS SLIGHT; POLYCHROMASIA 1+; SCHISTOCYTES SLIGHT; TEAR DROP CELLS SLIGHT; TOXIC GRANULATION SLIGHT
[2020-05-25] MEDS: NORMAL SALINE 1000 ML 1,000 ML IV PRN ×2 (06:00→06:02)
[2020-05-25 06:24] LABS: ALBUMIN 3.2 g/dL (3.5-5.0); ALKALINE PHOSPHATASE 90 U/L (38-126); ANION GAP 6 (5-19); ASPARTATE AMINO TRANSFERASE 22 U/L (14-36); BILIRUBIN,DIRECT 0.4 mg/dL (0.0-0.4); BILIRUBIN,TOTAL 1.4 mg/dL (0.2-1.3); BLOOD UREA NITROGEN 37 mg/dL (7-20); CALCIUM 9.6 mg/dL (8.4-10.2); CARBON DIOXIDE 32 mmol/L (22-30); CHLORIDE 96 mmol/L (98-107); GLUCOSE 144 mg/dL (75-110); TOTAL PROTEIN 6.1 g/dL (6.3-8.2)
[2020-05-25] MEDS: BUDESONIDE NEB 0.25 MG/2 ML AMPUL NEB SCH ×2 (08:10→19:35)
[2020-05-25] MEDS: AMINO AC/PROTEIN HYDR/WHEY PRO 11 GM/45 ML PKT NG SCH ×3 (10:15→17:14)
[2020-05-25] MEDS: HALOPERIDOL 0.5 MG TABLET NG SCH (10:15)
[2020-05-25] MEDS: FAMOTIDINE INJ/PF 20 MG/2 ML SDV IV SCH (10:15)
[2020-05-25] MEDS: MAGNESIUM SULFATE/D5W 1 GM/100 ML RTUPB IV SCH ×3 (10:15→14:21)
[2020-05-25] MEDS: FUROSEMIDE INJ/PF 40 MG/4 ML SDV IV SCH (10:15)
[2020-05-25] MEDS: CARVEDILOL 3.125 MG TABLET NG SCH (10:40)
[2020-05-25] MEDS: METHYLPREDNISOLONE INJ 40 MG/1 ML SDV IV SCH (12:21)
[2020-05-25] MEDS: INSULIN GLARGINE,HUM.REC.ANLOG 1,000 UNIT/10 ML VIAL SUBCUT SCH (12:26)
[2020-05-25] MEDS ORDERED: MAGNESIUM SULFATE/D5W 1 GM/100 ML RTUPB IV SCH (14:30)
[2020-05-25] MEDS ORDERED: HYDROMORPHONE HCL INJ/PF 2 MG/ML AMPULE IV PRN (14:33)
[2020-05-25] MEDS ORDERED: LORAZEPAM INJ 2 MG/1 ML VIAL IV PRN (14:33)
[2020-05-25] MEDS ORDERED: NORMAL SALINE 500 ML IV PRN (19:20)
[2020-05-25] MEDS: ALBUTEROL SULFATE 0.083% NEB 2.5 MG/3 ML AMPUL NEB PRN (19:35)
--- NOTE | 2020-05-25 19:52 | PDOC CRITICAL CARE PROG REPORT ---
General Date:: 05/25/20 ICU Day:: 56 Ventilator Day:: 56 - Tracheostomy 05/08/2020 ([facility]) Hospital Day:: 65 Resuscitation Status: Full Code Events in the past 12 to 24 Hours:: This 44-year-old -[place] female presented to [facility] emergency department on 03/21/2020 with complaints of possible presyncope versus syncope in addition to fever, chills, productive cough, dyspnea and exertional d yspnea. She has a history of psychiatric disorders and is known to be a difficult historian. Nonetheless, the patient also was known to have been diagnosed with COVID-19 pneumonia on 03/17/2020 and had subsequently been evaluated in the emergency department. She was apparently discharged home with prescriptions for azithromycin and other medications for symptomatic treatment. She returned with worsening shortness of breath and newly demonstrating supplemental oxygen requirement. 04/09-04/10: Remains intubated. Sedated with Precedex/Versed/fentanyl. On pressure control mode with peak and plateau pressures in the 40s. On insulin infusion for glucose control. On Glucerna + Prosource. KUB obtained showed a gasless abdomen, incongruent with physical exam (possibly due to morbid obesit y). Still no BM. 04/11-: Had brisk diuresis with furosemide 40 mg IV single dose (2600 mL urine o utput), which resulted in a decrease in CVP. However, CVP is now back up to 910. On PRVC mode. ABG this a.m.: 7.46/46/53. Creatinine 0.6. WBC 17.3>11.4. Still no BM. On Versed/fentanyl/Precedex for sedation. Opens eyes to physical stimuli. Tube feeding currently on hold due to high residuals. Of note, even in the absence of tube feeding, the patient is having gastric residuals in the 200s. She does demonstrate spontaneous eye opening. She does not follow commands. 04/13-: Switched to BiVENT/APRV on 04/12/2020 (FiO2 80%, P high 17, T high 9.5 seconds, P low 3, T low 0.5 seconds). ABG this a.m.: 7.42/50/72. Off insulin infusion. Overnight, the patient had an episode of hypoglycemia (40) despite being on trickle tube feeds. Blood cultures (04/13) isolated gram-positive cocci in clusters. Tracheal aspirate (04/13) isolated Staphylococcus aureus. GPC is MSSA sens to rocephin. Still unsure if it's a contaminate. No progress made on ventilator. Changed back to PRVC on 04/16. Still 100% and PEEP 14. 04/18: CXR looks better. Will try weaning today. FiO2 first. 04/19-: Not able to wean yesterday. O2 saturations 95-96%. Will wean PEEP. Down to 10 in effort to lower PEEP for trach which I believe she will need. No weaning on drips yet. Will need trach and PEG. O2 saturations worse, in mid to low 80s on 100%. Talked with Dr. Owen regarding need for trach next week. 04/23: Remains intubated. On rocuronium, Versed and fentanyl infusions. FiO2 95%. PRVC. WBC 13.6. D-dimer 3.14. CRP 59.1. Magnesium 1.5. 04/24: Rocuronium was discontinued yesterday. The patient's ventilator mode was switched to BiVENT. Versed changed to propofol. Still on fentanyl. On BiVENT. [place] sedated. 04/25: Yesterday afternoon, she developed acute hypoxemic decompensation followed by profound hypotension. Clinically, this was highly suspicious for pulmonary embolism. She was started on heparin infusion. SVO2 was found to be 15%. She was started on dobutamine. Ventilator settings were changed. She is still on BiVENT/APRV but now with settings that closely mimic inverse I:E pressure control ventilation. FiO2 100%. P high 20, P low 10, T high 1.5, T low 0.5. 04/26: COVID-19 (HUGH from 04/23) finally returned to negative result. Dobutamine changed to milrinone yesterday. Still on BiVENT/APRV but has been tolerating lower pressures in longer T high times. Had an episode of oxygen desaturation again this morning. Clinically, it appears that she is having increased secretions from the airway, possibly with mucous plugging. Settings were changed subsequent to oxygen desaturation: P high 30, P low 10, T high 1.5, T low 0.5. ABG this a.m.: 7.36/51/69. Diuresing, -869 mL yesterday. proBNP 5880. BM +. 04/27: [place] sedated, synchronous with ventilator. BG this a.m. 7.28/64/78. WBC 25.8 this AM. CRP 200. D-dimer 2.04. 04/28: WBC down to 25.8>14.8 this AM. Not on antibiotics. However, hemoglobin also dropped to 6.6. Repeat hemoglobin 6.2. No obvious blood loss. Blood urine and tracheal aspirate cultures from 04/27 pending. On propofol/Precedex/fentanyl. Triglycerides 183. 04/29: Febrile (T-max 24-hour 102.7 Fahrenheit), reportedly refractory to Tylenol and cooling blanket. WBC 28.3. Hemoglobin 6.2>9 after transfusion of 2 units PRBC yesterday. Started on vancomycin overnight due to gram-positive cocci in trach aspirate (04/27), which are now being reported as MRSA. Also, blood cultures (1 of 2) are growing out Staphylococcus species, possibly a contaminant. Still on propofol/Precedex/fentanyl for sedation. Started Versed overnight as well. On BiVENT/APRV: P high 20, P low 3, T high 5.5, T low 0.5. + PSV 15. 04/30: Bun/Cr slightly up. Vancomycin stopped. Linezolid started. Off propofol, may have had propofol infusion syndrome. 05/01: Only small changes in vent made as tolerated. 05/02: Decrease in H/H today, likely anemia of chronic disease. No apparent signs of bleeding. I was able to lower her inspiratory time (PEEP high) slightly without any significant change in SPO2. Her FiO2 was also decreased to 90%. No other significant changes. Plan will be to consult surgery for tracheostomy placement. 05/03/2020: Small incremental changes made on the ventilator today. FiO2 weaned slightly. No other significant changes. 05/04/2020: Patient has had a small bit of progress with weaning her FiO2. We will continue as tolerated and make attempts to wean her bilevel as well today. 05/05/2020: No significant changes over the past 24 hours. Patient has been saturating well with 80 to 90% FiO2. Overall plan today is to continue to wean. Patient will need tracheostomy tube. 05/06: Overall no major change. Has been seen by Dr. Manriquez regarding need for trach 05/05. 05/07: Plan for tracheostomy on 05/08. 05/08: Patient underwent uneventful tracheostomy today. 05/09: Starting to come down on sedation. 05/10: Off versed. May have to increase fentanyl. 05/11: Not able to make changes to vent. Not awakening off versed. 05/12: Seems to be calmer with addition of seroquel, although to early to tell. 05/13: Still having intermittent agitation. Seems less. 05/14: Off Precedex infusion this morning. On Ativan and Lortab per NG tube, tapering. Waking up. Follows commands. Mouthing words over ET tube. Occasional cough. Purulent secretions noted from the tracheostomy site. Still on BiVENT (P high 30, P low 10, T high 1.2, T low 0.8 + PSV 10). On cefe pime/linezolid for trach aspirate (05/09) isolating E cloacae and S. aureus and MRSA bacteremia (05/09). T-max 100.6 today. 05/15: Continues to be febrile. On cefepime/Zyvox. WBC 22.2. Cultures pending, but it appears preliminary results suggest trach aspirate is isolating gram- negative rods. K 2.6 this morning. 05/16: Afebrile this morning with overall downward trend in temperature curve overnight. Started on meropenem and GINO nebs for gram-negative coverage. Trach wound is isolating Enterobacter cloacae in addition to gram-positive cocci in chains. WBC 22.2>18.2. Mentating well. Follows some commands, hindered by generalized weakness. 05/17: Febrile this morning (afebrile since 1800 yesterday). On meropenem/GINO for gram-negative coverage. Also on Zyvox. Trach wound isolated Enterobacter cloacae and Staph aureus. WBC 18.2>20. 05/18: Gets agitated at times and may be in pain. 05/19: When coughing her O2 saturations will go from 81-95% in less than a minute. Not accurate. Awake at times not following commands. 05/20: FIO2 back up to 100%, not clear why. PSV and PEEP still at 12. 05/21: Only able to make small changes to PEEP and PSV. Still on 90%. 05/22: PEEP and PSV at 10. FIO2 still 90%. 05/24: No change 05/25: Afebrile. WBC 17.5. Magnesium 1.6. On pressure control (f 16, Pi 15+PEEP, PEEP 10), FiO2 100%. Tachycardic. Hypertensive. Currently on Precedex. Of note, the patient was on Ativan and Dilaudid to wean from her prolonged Versed/fentanyl infusions while endotracheally intubated. These medications have apparently fallen off of her medication list. Review of systems relevant to events:: Pulmonary, neurological. Reason for ICU Addmission:: acute respiratory failure, covid -19 pneumonia, Has trach, on vent. - Medications: Medications reviewed and adjusted accordingly: Yes Vasopressors:: None Sedation:: Precedex Physical Exam Vital Signs: Temp Pulse Resp BP Pulse Ox 98.6 F 121 H 40 H 136/106 H 89 L 05/25/20 07:32 05/24/20 19:25 05/25/20 06:12 05/25/20 06:12 05/25/20 06:12 Intake & Output 05/24/20 05/25/20 05/26/20 06:59 06:59 06:59 Intake Total 3403 4341 Output Total 3320 2370 150 Balance 83 1971 -150 Weight 141.3 kg 141.5 kg Weight/Height Weight 141.5 kg Height 1.6 m General appearance: PRESENT: no acute distress, morbidly obese, well-developed, well-nourished Head exam: PRESENT: atraumatic, normocephalic Eye exam: PRESENT: conjunctiva pink, EOMI, PERRLA. ABSENT: scleral icterus Mouth exam: PRESENT: moist, tongue midline Neck exam: PRESENT: tracheostomy. ABSENT: carotid bruit, JVD, lymphadenopathy, thyromegaly Respiratory exam: PRESENT: clear to auscultation reji. ABSENT: rales, rhonchi, wheezes Cardiovascular exam: PRESENT: RRR, tachycardia. ABSENT: diastolic murmur, rubs, systolic murmur GI/Abdominal exam: PRESENT: normal bowel sounds, soft. ABSENT: distended, guarding, mass, organolmegaly, rebound, tenderness Gentrourinary exam: PRESENT: indwelling catheter Extremities exam: PRESENT: full ROM, pedal edema, +1 edema. ABSENT: calf tenderness, clubbing Musculoskeletal exam: PRESENT: normal inspection. ABSENT: deformity Neurological exam: PRESENT: alert, awake, reflexes normal, CN II-XII grossly intact, motor sensory deficit - Generalized motor weakness Psychiatric exam: ABSENT: agitated, anxious Skin exam: PRESENT: dry, intact, warm. ABSENT: cyanosis, rash Tubes/Lines: PRESENT: Central Line - Right IJ, Nasogastic Tube Laboratory/Radiographs Laboratory Results: 05/25/20 04:06 05/25/20 04:06 05/25/20 05/25/20 04:06 04:06 WBC 17.5 H RBC 2.73 L Hgb 8.0 L Hct 24.6 L MCV 90 MCH 29.4 MCHC 32.8 RDW 22.3 H Plt Count 231 Seg Neutrophils % Not Reportable Sodium 134.1 L Potassium 4.0 Chloride 96 L Carbon Dioxide 32 H Anion Gap 6 BUN 37 H Creatinine 0.42 L Est GFR ( Amer) > 60 Glucose 144 H Calcium 9.6 Magnesium 1.6 Total Bilirubin 1.4 H AST 22 Alkaline Phosphatase 90 Total Protein 6.1 L Albumin 3.2 L 03/21/20 04/11/20 04/14/20 21:58 03:05 01:59 Creatine Kinase Troponin I < 0.012 NT-Pro-B Natriuret Pep 192 H 184 H 04/24/20 04/25/20 04/26/20 14:18 09:01 03:53 Creatine Kinase Troponin I 0.012 NT-Pro-B Natriuret Pep 7620 H 5880 H 04/30/20 03:50 Creatine Kinase 301 H Troponin I NT-Pro-B Natriuret Pep Impressions: Abdomen Ultrasound 04/10/20 00:00 IMPRESSION: NO EVIDENCE FOR ASCITES. KUB X-Ray 04/29/20 00:00 IMPRESSION: NG tube is present with side port and tip overlying the body of the stomach. Chest X-Ray 05/23/20 04:00 IMPRESSION: STABLE APPEARANCE OF THE CHEST. SUPPORT DEVICES UNCHANGED. All labs, radiographs, diagnostic studies and EKGs were personally reviewed: Yes In addition, reports of radiographic and diagnostic studies were read: Yes Assessment and Plan - Diagnosis (1) Acute respiratory failure with hypoxia and hypercapnia Is this a current diagnosis for this admission?: Yes Plan: * Diurese. Discontinue IV fluids. * Wean FiO2 as tolerated. * Stop Precedex. * Restart Ativan/Dilaudid with plans for steady wean. (2) Pneumonia due to COVID-19 virus Is this a current diagnosis for this admission?: Yes (3) Leukocytosis Qualifiers: Leukocytosis type: unspecified Qualified Code(s): D72.829 - Elevated white blood cell count, unspecified Is this a current diagnosis for this admission?: Yes (4) Steroid-induced hyperglycemia Is this a current diagnosis for this admission?: Yes (5) Normocytic anemia Is this a current diagnosis for this admission?: Yes (6) Staphylococcus aureus bacteremia Is this a current diagnosis for this admission?: Yes (7) Infection caused by Enterobacter cloacae Is this a current diagnosis for this admission?: Yes (8) Hypertension Qualifiers: Hypertension type: unspecified Qualified Code(s): I10 - Essential (primary) hypertension Is this a current diagnosis for this admission?: Yes Critical Time Critical Time (minutes): 30 Level of Care: ICU -: 1. The care of a critical patient is a dynamic process. This note is a agency sales representative synopsis but static in nature. The timeframe for treatments given in order is not necessarily the actual time these treatments may have been done. 2. This patient requires critical care secondary to ongoing requirements for therapy not offered or safe outside the critical care environment. Transfer to a lower level of care will result in altered life or limb morbidity and mortality. 3. Multidisciplinary rounds completed. 4. ABCDE bundle addressed.
[2020-05-25] MEDS ORDERED: MORPHINE SULFATE 10 MG/ML INJ IV PRN (21:15)
[2020-05-25] MEDS ORDERED: NOREPINEPHRINE BITARTRATE INJ/PF 4 MG/4 ML SDV IV ONE (21:43)
[2020-05-25] MEDS: DEXTROSE 5%-WATER 250 ML with NOREPINEPHRINE BITARTRATE 4 MG IV PRN ×2 (21:55)
[2020-05-25] MEDS ORDERED: VASOPRESSIN INJ 20 UNIT/1 ML VIAL ONE (22:16)
[2020-05-25] MEDS ORDERED: DOPAMINE HCL/DEXTROSE 5%-WATER 800 MG/250 ML RTUINJ IV ONE (22:24)
[2020-05-25] MEDS ORDERED: NALOXONE HCL INJ/PF 0.4 MG/1 ML SDV ONE (22:27)
[2020-05-25] MEDS ORDERED: EPINEPHRINE INJ/PF 1 MG/1 ML AMPULE ONE ×2 (22:37→22:46)
--- NOTE | 2020-05-26 00:02 | Progress Note ---
Provider Note Provider Note: I was called to the room due to patient heart rate dropping down and low BP. The heart rate was in the 40's ordered to start dopamine. The patient went into asytole and code blue was called. See code sheet for complete details. After several rounds of CPR and ACLS protocol the patient achieved ROSC and was started on an epi gtt to maintain BP and heart rate. The patient remains of levophed dopamine and vasopressin as well as epi and is currently stable hemodynamically.
[2020-05-26 00:27] LABS: ARTERIAL BLOOD BASE EXCESS -7.5 mmol/L; ARTERIAL BLOOD H2CO3 1.16 mmol/L (1.05-1.35); ARTERIAL BLOOD HCO3 18.3 mmol/L (20-24); ARTERIAL BLOOD O2 SATURATION 83.1 % (94-98); ARTERIAL BLOOD PCO2 38.5 mmHg (35-45); ARTERIAL BLOOD PO2 51.7 mmHg (80-100); ARTERIAL BLOOD TOTAL CO2 19.5 mmol/L (21-25)
[2020-05-26 00:27] LABS: HEMATOCRIT 26.6 % (36.0-47.0); HEMOGLOBIN 8.3 g/dL (12.0-15.5); MEAN CORPUSCULAR HGB CONC 31.2 g/dL (32.0-36.0); MEAN CORPUSCULAR VOLUME 93 fl (80-97); PLATELET COUNT 232 10^3/uL (150-450); RED BLOOD COUNT 2.86 10^6/uL (3.72-5.28); RED CELL DISTRIBUTION WIDTH 21.4 % (11.5-14.0)
[2020-05-26 00:28] LABS: ALBUMIN 3.2 g/dL (3.5-5.0); ALKALINE PHOSPHATASE 198 U/L (38-126); ANION GAP 16 (5-19); BILIRUBIN,DIRECT 1.4 mg/dL (0.0-0.4); BILIRUBIN,TOTAL 2.7 mg/dL (0.2-1.3); BLOOD UREA NITROGEN 37 mg/dL (7-20); CALCIUM 8.8 mg/dL (8.4-10.2); CHLORIDE 96 mmol/L (98-107); GLUCOSE 140 mg/dL (75-110); TOTAL PROTEIN 6.1 g/dL (6.3-8.2)
[2020-05-26 00:28] LABS: ARTERIAL BLOOD FIO2 100%
[2020-05-26 00:40] LABS: CARBON DIOXIDE 19 mmol/L (22-30)
[2020-05-26 00:55] LABS: ASPARTATE AMINO TRANSFERASE 3163 U/L (14-36)
[2020-05-26 00:59] LABS: ABSOLUTE LYMPHOCYTES# (MANUAL) 10.1 10^3/uL (0.5-4.7); BASOPHILS % (MANUAL) 0 % (0-2); EOSINOPHILS % (MANUAL) 0 % (0-6); LYMPHOCYTES % (MANUAL) 17 % (13-45); METAMYELOCYTES % (MANUAL) 1 % (0-1); MONOCYTES % (MANUAL) 5 % (3-13); NUCLEATED RED BLOOD CELLS 14 /100 WBC (0); SEGMENTED NEUTROPHILS % (MAN) 77 % (42-78); TOTAL CELLS COUNTED 100
[2020-05-26 01:03] LABS: ANISOCYTOSIS 3+; OVALOCYTES 1+; POIKILOCYTOSIS 3+; SCHISTOCYTES SLIGHT; TEAR DROP CELLS 2+; TOXIC GRANULATION SLIGHT
[2020-05-26 01:04] LABS: PLATELET COMMENT ADEQUATE; POLYCHROMASIA 1+
[2020-05-26 01:05] LABS: WHITE BLOOD COUNT 51.9 10^3/uL (4.0-10.5)
[2020-05-26] MEDS ORDERED: VANCOMYCIN HCL INJ 1000 MG VIAL IV ONE (01:20)
[2020-05-26] MEDS ORDERED: PIPERACILLIN/TAZOBACTAM 3.375 GM VIAL IV SCH (01:30)
[2020-05-26] MEDS ORDERED: VANCOMYCIN HCL 2,000 MG in DEXTROSE 5%-WATER 500 ML IV ONE (01:45)
[2020-05-26] MEDS ORDERED: PIPERACILLIN SODIUM/TAZOBACTAM 3.375 GM in NORMAL SALINE 100 ML IV ONE (01:45)
[2020-05-26] MEDS ORDERED: VANCOMYCIN HCL 1,000 MG in DEXTROSE 5%-WATER 250 ML IV ONE (01:45)
[2020-05-26 02:07] LABS: ARTERIAL BLOOD BASE EXCESS -7.6 mmol/L; ARTERIAL BLOOD H2CO3 1.35 mmol/L (1.05-1.35); ARTERIAL BLOOD HCO3 19.2 mmol/L (20-24); ARTERIAL BLOOD O2 SATURATION 91.1 % (94-98); ARTERIAL BLOOD PCO2 44.9 mmHg (35-45); ARTERIAL BLOOD PH 7.25 (7.35-7.45); ARTERIAL BLOOD PO2 69.4 mmHg (80-100); ARTERIAL BLOOD TOTAL CO2 20.6 mmol/L (21-25)
[2020-05-26 02:08] LABS: ARTERIAL BLOOD FIO2 100%
[2020-05-26] MEDS: CARVEDILOL 3.125 MG TABLET NG SCH ×2 (03:15→09:55)
[2020-05-26] MEDS: FUROSEMIDE INJ/PF 40 MG/4 ML SDV IV SCH ×2 (03:15→09:55)
[2020-05-26] MEDS: HALOPERIDOL 0.5 MG TABLET NG SCH ×3 (03:15→22:32)
[2020-05-26] MEDS: INSULIN REG, HUMAN 100 UNIT/ML 3 ML VIAL (PYX) SUBCUT SCH ×4 (03:16→18:28)
[2020-05-26] MEDS: QUETIAPINE FUMARATE 25 MG TABLET NG SCH ×4 (03:16→17:31)
[2020-05-26] MEDS ORDERED: NOREPINEPHRINE BITARTRATE INJ/PF 4 MG/4 ML SDV IV ONE (03:56)
[2020-05-26] MEDS ORDERED: DEXTROSE 5%-WATER 250 ML with VASOPRESSIN 100 UNIT IV PRN ×2 (03:58)
[2020-05-26] MEDS ORDERED: DEXTROSE 5%-WATER 250 ML with EPINEPHRINE/PF 1 MG IV PRN ×2 (03:58)
[2020-05-26 05:39] LABS: ALBUMIN 3.3 g/dL (3.5-5.0); ALKALINE PHOSPHATASE 234 U/L (38-126); ANION GAP 18 (5-19); BILIRUBIN,DIRECT 1.8 mg/dL (0.0-0.4); BILIRUBIN,TOTAL 2.9 mg/dL (0.2-1.3); BLOOD UREA NITROGEN 42 mg/dL (7-20); CARBON DIOXIDE 22 mmol/L (22-30); CHLORIDE 97 mmol/L (98-107); GLUCOSE 106 mg/dL (75-110); PHOSPHORUS 9.2 mg/dL (2.5-4.5); POTASSIUM 4.4 mmol/L (3.6-5.0); TOTAL PROTEIN 6.2 g/dL (6.3-8.2)
[2020-05-26 05:40] LABS: ARTERIAL BLOOD BASE EXCESS -6.9 mmol/L; ARTERIAL BLOOD FIO2 100%; ARTERIAL BLOOD H2CO3 1.06 mmol/L (1.05-1.35); ARTERIAL BLOOD HCO3 18.1 mmol/L (20-24); ARTERIAL BLOOD O2 SATURATION 98.7 % (94-98); ARTERIAL BLOOD PCO2 35.3 mmHg (35-45); ARTERIAL BLOOD PH 7.33 (7.35-7.45); ARTERIAL BLOOD PO2 143.6 mmHg (80-100); ARTERIAL BLOOD TOTAL CO2 19.2 mmol/L (21-25)
[2020-05-26 05:53] LABS: HEMATOCRIT 26.8 % (36.0-47.0); HEMOGLOBIN 8.5 g/dL (12.0-15.5); MEAN CORPUSCULAR HEMOGLOBIN 29.2 pg (27.0-33.4); MEAN CORPUSCULAR HGB CONC 31.6 g/dL (32.0-36.0); MEAN CORPUSCULAR VOLUME 93 fl (80-97); PLATELET COUNT 174 10^3/uL (150-450); RED BLOOD COUNT 2.89 10^6/uL (3.72-5.28); RED CELL DISTRIBUTION WIDTH 22.6 % (11.5-14.0)
[2020-05-26] MEDS ORDERED: VANCOMYCIN HCL INJ 1000 MG VIAL ONE (05:57)
[2020-05-26] MEDS ORDERED: PIPERACILLIN/TAZOBACTAM 3.375 GM VIAL IV ONE (05:57)
[2020-05-26 06:05] LABS: ASPARTATE AMINO TRANSFERASE 6389 U/L (14-36)
[2020-05-26] MEDS: INSULIN GLARGINE,HUM.REC.ANLOG 1,000 UNIT/10 ML VIAL SUBCUT SCH ×3 (07:02→22:33)
[2020-05-26] MEDS: MELATONIN 5 MG TABLET NG SCH ×2 (07:02→22:34)
[2020-05-26 07:17] LABS: ABSOLUTE LYMPHOCYTES# (MANUAL) 4.5 10^3/uL (0.5-4.7); ABSOLUTE MONOCYTES # (MANUAL) 1.6 10^3/uL (0.1-1.4); BAND NEUTROPHILS % (MANUAL) 5 % (3-5); BASOPHILS % (MANUAL) 0 % (0-2); EOSINOPHILS % (MANUAL) 0 % (0-6); LYMPHOCYTES % (MANUAL) 11 % (13-45); METAMYELOCYTES % (MANUAL) 2 % (0-1); MONOCYTES % (MANUAL) 4 % (3-13); NUCLEATED RED BLOOD CELLS 19 /100 WBC (0); SEGMENTED NEUTROPHILS % (MAN) 78 % (42-78); TOTAL CELLS COUNTED 100
[2020-05-26 07:24] LABS: ANISOCYTOSIS 3+; PLATELET CLUMPS PRESENT; PLATELET COMMENT ADEQUATE; POIKILOCYTOSIS 1+
[2020-05-26 07:26] LABS: WHITE BLOOD COUNT 41.2 10^3/uL (4.0-10.5)
[2020-05-26] MEDS: ALBUTEROL SULFATE 0.083% NEB 2.5 MG/3 ML AMPUL NEB PRN (07:55)
[2020-05-26] MEDS: BUDESONIDE NEB 0.25 MG/2 ML AMPUL NEB SCH ×2 (07:55→20:41)
[2020-05-26] MEDS: HEPARIN SODIUM,PORCINE/D5W 25,000 UNIT/250 ML RTUINJ IV PRN (08:18)
[2020-05-26] MEDS: FAMOTIDINE INJ/PF 20 MG/2 ML SDV IV SCH ×3 (08:35→22:34)
[2020-05-26] MEDS: PIPERACILLIN SODIUM/TAZOBACTAM 3.375 GM in NORMAL SALINE 100 ML IV SCH ×3 (09:55→20:55)
[2020-05-26] MEDS: AMINO AC/PROTEIN HYDR/WHEY PRO 11 GM/45 ML PKT NG SCH ×3 (09:56→18:28)
[2020-05-26] MEDS: METHYLPREDNISOLONE INJ 40 MG/1 ML SDV IV SCH (09:56)
[2020-05-26 10:26] LABS: C DIFFICILE GDH NEGATIVE (NEGATIVE)
[2020-05-26] MEDS: VANCOMYCIN HCL 1,250 MG in DEXTROSE 5%-WATER 250 ML IV SCH (10:30)
[2020-05-26] MEDS: RINGERS SOLUTION,LACTATED 1,000 ML IV PRN (10:30)
--- NOTE | 2020-05-26 10:51 | RADIOLOGY REPORT (SQ) ---
EXAM DESCRIPTION: CHEST SINGLE VIEW IMAGES COMPLETED DATE/TIME: 05/26/2020 5:27 am REASON FOR STUDY: vent COMPARISON: Chest films 05/23/2020, 05/16/2020, 05/15/2020 EXAM PARAMETERS: NUMBER OF VIEWS: One view. TECHNIQUE: Single frontal radiographic view of the chest acquired. RADIATION DOSE: NA LIMITATIONS: Portable film, obese patient, hardware over the chest FINDINGS: LUNGS AND PLEURA: Persistent mild alveolar and interstitial infiltrates, unchanged from . No pleural effusion. No pneumothorax. MEDIASTINUM AND HILAR STRUCTURES: No masses. Contour normal. HEART AND VASCULAR STRUCTURES: Stable mild cardiomegaly BONES: No acute findings. HARDWARE: Tracheostomy tube tip in good positioning. Nasogastric tube tip and side port in the stoma ch. Right jugular central line tip superior vena cava. OTHER: No other significant finding. IMPRESSION: Persistent mild alveolar and interstitial infiltrates unchanged. Tubes and lines in good positioning TECHNICAL DOCUMENTATION: JOB ID: [id number] 2010 [employer]- All Rights Reserved Reading location - IP/workstation name: [email or web address]
[2020-05-26] MEDS ORDERED: PROPOFOL 0 MG/0 ML INFUS..BTL IV ONE (12:04)
[2020-05-26] MEDS: DEXTROSE 5%-WATER 250 ML with NOREPINEPHRINE BITARTRATE 4 MG IV PRN ×2 (12:33)
[2020-05-26] MEDS: LEVETIRACETAM 1000 MG/NACL-ISO 1,000 MG/100 ML RTUPB IV SCH ×2 (12:44→22:33)
[2020-05-26 13:26] LABS: ARTERIAL BLOOD BASE EXCESS -7.1 mmol/L; ARTERIAL BLOOD FIO2 90%; ARTERIAL BLOOD H2CO3 1.22 mmol/L (1.05-1.35); ARTERIAL BLOOD O2 SATURATION 94.7 % (94-98); ARTERIAL BLOOD PCO2 40.6 mmHg (35-45); ARTERIAL BLOOD PH 7.29 (7.35-7.45); ARTERIAL BLOOD PO2 80.8 mmHg (80-100); ARTERIAL BLOOD TOTAL CO2 20.2 mmol/L (21-25)
--- NOTE | 2020-05-26 16:42 | PDOC CRITICAL CARE PROG REPORT ---
General Date:: 05/26/20 ICU Day:: 57 Ventilator Day:: 57 - Tracheostomy 05/08/2020 ([facility]) Hospital Day:: 66 Resuscitation Status: Full Code Events in the past 12 to 24 Hours:: This 44-year-old -[place] female presented to [facility] emergency department on 03/21/2020 with complaints of possible presyncope versus syncope in addition to fever, chills, productive cough, dyspnea and exertional d yspnea. She has a history of psychiatric disorders and is known to be a difficult historian. Nonetheless, the patient also was known to have been diagnosed with COVID-19 pneumonia on 03/17/2020 and had subsequently been evaluated in the emergency department. She was apparently discharged home with prescriptions for azithromycin and other medications for symptomatic treatment. She returned with worsening shortness of breath and newly demonstrating supplemental oxygen requirement. 04/09-04/10: Remains intubated. Sedated with Precedex/Versed/fentanyl. On pressure control mode with peak and plateau pressures in the 40s. On insulin infusion for glucose control. On Glucerna + Prosource. KUB obtained showed a gasless abdomen, incongruent with physical exam (possibly due to morbid obesit y). Still no BM. 04/11-: Had brisk diuresis with furosemide 40 mg IV single dose (2600 mL urine o utput), which resulted in a decrease in CVP. However, CVP is now back up to 910. On PRVC mode. ABG this a.m.: 7.46/46/53. Creatinine 0.6. WBC 17.3>11.4. Still no BM. On Versed/fentanyl/Precedex for sedation. Opens eyes to physical stimuli. Tube feeding currently on hold due to high residuals. Of note, even in the absence of tube feeding, the patient is having gastric residuals in the 200s. She does demonstrate spontaneous eye opening. She does not follow commands. 04/13-: Switched to BiVENT/APRV on 04/12/2020 (FiO2 80%, P high 17, T high 9.5 seconds, P low 3, T low 0.5 seconds). ABG this a.m.: 7.42/50/72. Off insulin infusion. Overnight, the patient had an episode of hypoglycemia (40) despite being on trickle tube feeds. Blood cultures (04/13) isolated gram-positive cocci in clusters. Tracheal aspirate (04/13) isolated Staphylococcus aureus. GPC is MSSA sens to rocephin. Still unsure if it's a contaminate. No progress made on ventilator. Changed back to PRVC on 04/16. Still 100% and PEEP 14. 04/18: CXR looks better. Will try weaning today. FiO2 first. 04/19-: Not able to wean yesterday. O2 saturations 95-96%. Will wean PEEP. Down to 10 in effort to lower PEEP for trach which I believe she will need. No weaning on drips yet. Will need trach and PEG. O2 saturations worse, in mid to low 80s on 100%. Talked with Dr. Owen regarding need for trach next week. 04/23: Remains intubated. On rocuronium, Versed and fentanyl infusions. FiO2 95%. PRVC. WBC 13.6. D-dimer 3.14. CRP 59.1. Magnesium 1.5. 04/24: Rocuronium was discontinued yesterday. The patient's ventilator mode was switched to BiVENT. Versed changed to propofol. Still on fentanyl. On BiVENT. [place] sedated. 04/25: Yesterday afternoon, she developed acute hypoxemic decompensation followed by profound hypotension. Clinically, this was highly suspicious for pulmonary embolism. She was started on heparin infusion. SVO2 was found to be 15%. She was started on dobutamine. Ventilator settings were changed. She is still on BiVENT/APRV but now with settings that closely mimic inverse I:E pressure control ventilation. FiO2 100%. P high 20, P low 10, T high 1.5, T low 0.5. 04/26: COVID-19 (HUGH from 04/23) finally returned to negative result. Dobutamine changed to milrinone yesterday. Still on BiVENT/APRV but has been tolerating lower pressures in longer T high times. Had an episode of oxygen desaturation again this morning. Clinically, it appears that she is having increased secretions from the airway, possibly with mucous plugging. Settings were changed subsequent to oxygen desaturation: P high 30, P low 10, T high 1.5, T low 0.5. ABG this a.m.: 7.36/51/69. Diuresing, -869 mL yesterday. proBNP 5880. BM +. 04/27: [place] sedated, synchronous with ventilator. BG this a.m. 7.28/64/78. WBC 25.8 this AM. CRP 200. D-dimer 2.04. 04/28: WBC down to 25.8>14.8 this AM. Not on antibiotics. However, hemoglobin also dropped to 6.6. Repeat hemoglobin 6.2. No obvious blood loss. Blood urine and tracheal aspirate cultures from 04/27 pending. On propofol/Precedex/fentanyl. Triglycerides 183. 04/29: Febrile (T-max 24-hour 102.7 Fahrenheit), reportedly refractory to Tylenol and cooling blanket. WBC 28.3. Hemoglobin 6.2>9 after transfusion of 2 units PRBC yesterday. Started on vancomycin overnight due to gram-positive cocci in trach aspirate (04/27), which are now being reported as MRSA. Also, blood cultures (1 of 2) are growing out Staphylococcus species, possibly a contaminant. Still on propofol/Precedex/fentanyl for sedation. Started Versed overnight as well. On BiVENT/APRV: P high 20, P low 3, T high 5.5, T low 0.5. + PSV 15. 04/30: Bun/Cr slightly up. Vancomycin stopped. Linezolid started. Off propofol, may have had propofol infusion syndrome. 05/01: Only small changes in vent made as tolerated. 05/02: Decrease in H/H today, likely anemia of chronic disease. No apparent signs of bleeding. I was able to lower her inspiratory time (PEEP high) slightly without any significant change in SPO2. Her FiO2 was also decreased to 90%. No other significant changes. Plan will be to consult surgery for tracheostomy placement. 05/03/2020: Small incremental changes made on the ventilator today. FiO2 weaned slightly. No other significant changes. 05/04/2020: Patient has had a small bit of progress with weaning her FiO2. We will continue as tolerated and make attempts to wean her bilevel as well today. 05/05/2020: No significant changes over the past 24 hours. Patient has been saturating well with 80 to 90% FiO2. Overall plan today is to continue to wean. Patient will need tracheostomy tube. 05/06: Overall no major change. Has been seen by Dr. Manriquez regarding need for trach 05/05. 05/07: Plan for tracheostomy on 05/08. 05/08: Patient underwent uneventful tracheostomy today. 05/09: Starting to come down on sedation. 05/10: Off versed. May have to increase fentanyl. 05/11: Not able to make changes to vent. Not awakening off versed. 05/12: Seems to be calmer with addition of seroquel, although to early to tell. 05/13: Still having intermittent agitation. Seems less. 05/14: Off Precedex infusion this morning. On Ativan and Lortab per NG tube, tapering. Waking up. Follows commands. Mouthing words over ET tube. Occasional cough. Purulent secretions noted from the tracheostomy site. Still on BiVENT (P high 30, P low 10, T high 1.2, T low 0.8 + PSV 10). On cefe pime/linezolid for trach aspirate (05/09) isolating E cloacae and S. aureus and MRSA bacteremia (05/09). T-max 100.6 today. 05/15: Continues to be febrile. On cefepime/Zyvox. WBC 22.2. Cultures pending, but it appears preliminary results suggest trach aspirate is isolating gram- negative rods. K 2.6 this morning. 05/16: Afebrile this morning with overall downward trend in temperature curve overnight. Started on meropenem and GINO nebs for gram-negative coverage. Trach wound is isolating Enterobacter cloacae in addition to gram-positive cocci in chains. WBC 22.2>18.2. Mentating well. Follows some commands, hindered by generalized weakness. 05/17: Febrile this morning (afebrile since 1800 yesterday). On meropenem/GINO for gram-negative coverage. Also on Zyvox. Trach wound isolated Enterobacter cloacae and Staph aureus. WBC 18.2>20. 05/18: Gets agitated at times and may be in pain. 05/19: When coughing her O2 saturations will go from 81-95% in less than a minute. Not accurate. Awake at times not following commands. 05/20: FIO2 back up to 100%, not clear why. PSV and PEEP still at 12. 05/21: Only able to make small changes to PEEP and PSV. Still on 90%. 05/22: PEEP and PSV at 10. FIO2 still 90%. 05/24: No change 05/25: Afebrile. WBC 17.5. Magnesium 1.6. On pressure control (f 16, Pi 15+PEEP, PEEP 10), FiO2 100%. Tachycardic. Hypertensive. Currently on Precedex. Of note, the patient was on Ativan and Dilaudid to wean from her prolonged Versed/fentanyl infusions while endotracheally intubated. These medications have apparently fallen off of her medication list. 05/26: Experienced cardiopulmonary arrest overnight. Per life sciences manager report, the patient developed bradycardia arrhythmia and hypotension and progressed to asystole. CPR was administered. Currently off sedation. On dopa mine/norepinephrine/vasopressin for blood pressure support. Of note, WBC 41.2 this AM. Afebrile. ABG this a.m.: 7.33/35/144. On PRVC 20/450/90/10. But, Ppeak 53-55. Off all sedation. Only shows flickering of the eyes and lips at rest and with noxious stimuli. Review of systems relevant to events:: Pulmonary, neurological. Reason for ICU Addmission:: acute respiratory failure, covid -19 pneumonia, Has trach, on vent. - Medications: Medications reviewed and adjusted accordingly: Yes Vasopressors:: Dopamine/norepinephrine/vasopressin Sedation:: Ativan, morphine Physical Exam Vital Signs: Temp Pulse Resp BP Pulse Ox 98.1 F 98 29 H 102/63 98 05/25/20 20:00 05/26/20 07:55 05/26/20 07:55 05/26/20 06:08 05/26/20 07:55 Intake & Output 05/25/20 05/26/20 05/27/20 06:59 06:59 06:59 Intake Total 4341 1970 275 Output Total 2370 2990 Balance 1970 -1019 275 Weight 141.5 kg 142.4 kg Weight/Height Weight 142.4 kg Height 1.6 m General appearance: PRESENT: no acute distress, morbidly obese, well-developed, well-nourished Head exam: PRESENT: atraumatic, normocephalic Eye exam: PRESENT: conjunctiva pink, EOMI. ABSENT: PERRLA - bilateral pupils are fixed and dilated, scleral icterus Mouth exam: PRESENT: moist, tongue midline Neck exam: PRESENT: tracheostomy. ABSENT: carotid bruit, JVD, lymphadenopathy, thyromegaly Respiratory exam: PRESENT: clear to auscultation reji, symmetrical, tachypnea. ABSENT: rales, rhonchi, wheezes Cardiovascular exam: PRESENT: RRR. ABSENT: diastolic murmur, rubs, systolic murmur Pulses: PRESENT: normal dorsalis pedis pul GI/Abdominal exam: PRESENT: normal bowel sounds, soft. ABSENT: distended, guarding, mass, organolmegaly, rebound, tenderness Gentrourinary exam: PRESENT: indwelling catheter Extremities exam: PRESENT: full ROM, pedal edema, +2 edema. ABSENT: calf tenderness, clubbing Musculoskeletal exam: PRESENT: normal inspection. ABSENT: deformity Neurological exam: PRESENT: altered, motor sensory deficit - no visible response to painsul stimuli, aside from mouth twitching and palpebral fasciculations., other - Corneal reflex intact. Spontaneous respirations intact. No cough. No pathologic blink, palmomental or jaw jerk reflex.. ABSENT: reflexes normal Psychiatric exam: ABSENT: agitated, anxious Tubes/Lines: PRESENT: Central Line - R IJ, Nasogastic Tube Laboratory/Radiographs Laboratory Results: 05/26/20 04:10 05/26/20 04:10 05/25/20 05/25/20 05/25/20 21:18 23:55 23:55 WBC 51.9 H* D RBC 2.86 L Hgb 8.3 L Hct 26.6 L MCV 93 MCH 29.0 MCHC 31.2 L RDW 21.4 H Plt Count 232 Seg Neutrophils % Not Reportable Carbonic Acid 1.16 HCO3/H2CO3 Ratio 15:1 ABG pH 7.30 L ABG pCO2 38.5 ABG pO2 51.7 L ABG HCO3 18.3 L ABG O2 Saturation 83.1 L ABG Base Excess -7.5 FiO2 100% Sodium 131.4 L Potassium 5.0 D Chloride 96 L Carbon Dioxide 19 L D Anion Gap 16 BUN 37 H Creatinine 0.69 Est GFR ( Amer) > 60 Glucose 140 H Lactic Acid Calcium 8.8 Phosphorus Magnesium Total Bilirubin 2.7 H AST 3163 H Alkaline Phosphatase 198 H Total Protein 6.1 L Albumin 3.2 L 05/26/20 05/26/20 05/26/20 01:50 01:50 04:10 WBC RBC Hgb Hct MCV MCH MCHC RDW Plt Count Seg Neutrophils % Carbonic Acid 1.35 1.06 HCO3/H2CO3 Ratio 14:1 17:1 ABG pH 7.25 L 7.33 L ABG pCO2 44.9 35.3 ABG pO2 69.4 L 143.6 H ABG HCO3 19.2 L 18.1 L ABG O2 Saturation 91.1 L 98.7 H ABG Base Excess -7.6 -6.9 FiO2 100% 100% Sodium Potassium Chloride Carbon Dioxide Anion Gap BUN Creatinine Est GFR ( Amer) Glucose Lactic Acid 9.1 H Calcium Phosphorus Magnesium Total Bilirubin AST Alkaline Phosphatase Total Protein Albumin 05/26/20 05/26/20 04:10 04:10 WBC 41.2 H* RBC 2.89 L Hgb 8.5 L Hct 26.8 L MCV 93 MCH 29.2 MCHC 31.6 L RDW 22.6 H Plt Count 174 Seg Neutrophils % Not Reportable Carbonic Acid HCO3/H2CO3 Ratio ABG pH ABG pCO2 ABG pO2 ABG HCO3 ABG O2 Saturation ABG Base Excess FiO2 Sodium 136.9 L Potassium 4.4 Chloride 97 L Carbon Dioxide 22 Anion Gap 18 BUN 42 H Creatinine 0.81 Est GFR ( Amer) > 60 Glucose 106 Lactic Acid Calcium 9.0 Phosphorus 9.2 H Magnesium 2.3 Total Bilirubin 2.9 H AST 6389 H Alkaline Phosphatase 234 H Total Protein 6.2 L Albumin 3.3 L 03/21/20 04/11/20 04/14/20 21:58 03:05 01:59 Creatine Kinase Troponin I < 0.012 NT-Pro-B Natriuret Pep 192 H 184 H 04/24/20 04/25/20 04/26/20 14:18 09:01 03:53 Creatine Kinase Troponin I 0.012 NT-Pro-B Natriuret Pep 7620 H 5880 H 04/30/20 03:50 Creatine Kinase 301 H Troponin I NT-Pro-B Natriuret Pep Impressions: Abdomen Ultrasound 04/10/20 00:00 IMPRESSION: NO EVIDENCE FOR ASCITES. KUB X-Ray 04/29/20 00:00 IMPRESSION: NG tube is present with side port and tip overlying the body of the stomach. All labs, radiographs, diagnostic studies and EKGs were personally reviewed: Yes In addition, reports of radiographic and diagnostic studies were read: Yes Assessment and Plan - Diagnosis (1) Cardiopulmonary arrest Is this a current diagnosis for this admission?: Yes Plan: * Maintain off sedation to allow neurological assessment. (2) Shock Is this a current diagnosis for this admission?: Yes Plan: * Check SVO2. * Check CVP. * Panculture * Start maintenance IV fluids: Lactated Ringer's at 100 mL/h. (3) Anoxic encephalopathy Is this a current diagnosis for this admission?: Yes Plan: * given the patient's rhythmic movements, there is concern for myoclonus and/or seizures. * with the inability to obtain EEG at this time (weekend at [place]), will initiate Keppra. (4) Acute respiratory failure with hypoxia and hypercapnia Is this a current diagnosis for this admission?: Yes Plan: * Trial of BiVENT (Phi 20, Plo 8, Thi 9.5, Tlo 0.5), FiO2 90%. * ABG in 1 hour. * Restart propofol (not for sedation on vent but for elimination of myoclonus vs seizure activity). (5) Pneumonia due to COVID-19 virus Is this a current diagnosis for this admission?: Yes Plan: * Tested negative but still having post-COVID respiratory difficulties. (6) Leukocytosis Qualifiers: Leukocytosis type: unspecified Qualified Code(s): D72.829 - Elevated white blood cell count, unspecified Is this a current diagnosis for this admission?: Yes (7) Steroid-induced hyperglycemia Is this a current diagnosis for this admission?: Yes (8) Normocytic anemia Is this a current diagnosis for this admission?: Yes (9) Staphylococcus aureus bacteremia Is this a current diagnosis for this admission?: Yes Plan: * Got 7-day course of linezolid. * Started on vancomycin overnight. (10) Infection caused by Enterobacter cloacae Is this a current diagnosis for this admission?: Yes Plan: * Started on Zosyn overnight. (11) Hypertension Qualifiers: Hypertension type: unspecified Qualified Code(s): I10 - Essential (primary) hypertension Is this a current diagnosis for this admission?: Yes Critical Time Critical Time (minutes): 60 Level of Care: ICU -: 1. The care of a critical patient is a dynamic process. This note is a mortician supplies sales representative synopsis but static in nature. The timeframe for treatments given in order is not necessarily the actual time these treatments may have been done. 2. This patient requires critical care secondary to ongoing requirements for therapy not offered or safe outside the critical care environment. Transfer to a lower level of care will result in altered life or limb morbidity and mortality. 3. Multidisciplinary rounds completed. 4. ABCDE bundle addressed.
[2020-05-26 16:51] LABS: ARTERIAL BLOOD BASE EXCESS -4.4 mmol/L; ARTERIAL BLOOD H2CO3 1.22 mmol/L (1.05-1.35); ARTERIAL BLOOD HCO3 21.1 mmol/L (20-24); ARTERIAL BLOOD O2 SATURATION 95.4 % (94-98); ARTERIAL BLOOD PCO2 40.4 mmHg (35-45); ARTERIAL BLOOD PH 7.34 (7.35-7.45); ARTERIAL BLOOD PO2 81.6 mmHg (80-100); ARTERIAL BLOOD TOTAL CO2 22.4 mmol/L (21-25)
[2020-05-26 16:53] LABS: ARTERIAL BLOOD FIO2 95%
[2020-05-26 17:24] LABS: ARTERIAL BLOOD BASE EXCESS -2.9 mmol/L; ARTERIAL BLOOD H2CO3 1.28 mmol/L (1.05-1.35); ARTERIAL BLOOD HCO3 22.6 mmol/L (20-24); ARTERIAL BLOOD O2 SATURATION 72.9 % (94-98); ARTERIAL BLOOD PCO2 42.6 mmHg (35-45); ARTERIAL BLOOD PH 7.34 (7.35-7.45); ARTERIAL BLOOD TOTAL CO2 23.9 mmol/L (21-25)
[2020-05-26 17:25] LABS: ARTERIAL BLOOD FIO2 95%
[2020-05-26 17:26] LABS: ARTERIAL BLOOD PO2 40.6 mmHg (80-100)
--- NOTE | 2020-05-26 17:30 | RADIOLOGY REPORT (SQ) ---
EXAM DESCRIPTION: CHEST SINGLE VIEW IMAGES COMPLETED DATE/TIME: 05/26/2020 2:19 pm REASON FOR STUDY: acute hypoxic respiratory failure COMPARISON: 05/26/2020 EXAM PARAMETERS: NUMBER OF VIEWS: One view. TECHNIQUE: Single frontal radiographic view of the chest acquired. RADIATION DOSE: NA LIMITATIONS: External leads partially obscure underlying structures. FINDINGS: LUNGS AND PLEURA: Bibasilar opacities again demonstrated. No significant pleural effusion or pneumothorax. MEDIASTINUM AND HILAR STRUCTURES: No masses. Contour normal. HEART AND VASCULAR STRUCTURES: Stable. BONES: No acute findings. HARDWARE: Stable. OTHER: No other significant finding. IMPRESSION: No significant change. TECHNICAL DOCUMENTATION: JOB ID: [id number] 2010 [employer]- All Rights Reserved Reading location - IP/workstation name: [email or web address]
[2020-05-26 23:35] LABS: ARTERIAL BLOOD BASE EXCESS -5.4 mmol/L; ARTERIAL BLOOD H2CO3 1.77 mmol/L (1.05-1.35); ARTERIAL BLOOD HCO3 22.5 mmol/L (20-24); ARTERIAL BLOOD O2 SATURATION 95.7 % (94-98); ARTERIAL BLOOD PCO2 58.8 mmHg (35-45); ARTERIAL BLOOD PO2 96.6 mmHg (80-100); ARTERIAL BLOOD TOTAL CO2 24.3 mmol/L (21-25)
[2020-05-26 23:59] LABS: ARTERIAL BLOOD FIO2 85%
[2020-05-27] MEDS: VANCOMYCIN HCL 1,250 MG in DEXTROSE 5%-WATER 250 ML IV SCH ×2 (00:55→14:34)
[2020-05-27 07:17] LABS: ARTERIAL BLOOD H2CO3 1.59 mmol/L (1.05-1.35); ARTERIAL BLOOD HCO3 23.9 mmol/L (20-24); ARTERIAL BLOOD O2 SATURATION 98.5 % (94-98); ARTERIAL BLOOD PCO2 52.8 mmHg (35-45); ARTERIAL BLOOD PH 7.27 (7.35-7.45); ARTERIAL BLOOD PO2 145.5 mmHg (80-100); ARTERIAL BLOOD TOTAL CO2 25.5 mmol/L (21-25)
[2020-05-27 07:18] LABS: ARTERIAL BLOOD FIO2 85%
[2020-05-27 07:35] LABS: PARTIAL THROMBOPLASTIN TIME 88.9 SEC (23.5-35.8)
[2020-05-27 07:55] LABS: D-DIMER 14.03 ug/mL (0.00-0.50)
[2020-05-27] MEDS: BUDESONIDE NEB 0.25 MG/2 ML AMPUL NEB SCH ×2 (08:08→19:58)
[2020-05-27 08:17] LABS: ALBUMIN 2.8 g/dL (3.5-5.0); ALKALINE PHOSPHATASE 193 U/L (38-126); ANION GAP 8 (5-19); BILIRUBIN,DIRECT 1.6 mg/dL (0.0-0.4); BILIRUBIN,TOTAL 2.9 mg/dL (0.2-1.3); BLOOD UREA NITROGEN 58 mg/dL (7-20); CALCIUM 7.9 mg/dL (8.4-10.2); CARBON DIOXIDE 29 mmol/L (22-30); CHLORIDE 96 mmol/L (98-107); GLUCOSE 144 mg/dL (75-110); PHOSPHORUS 7.9 mg/dL (2.5-4.5); POTASSIUM 3.4 mmol/L (3.6-5.0); TOTAL PROTEIN 5.6 g/dL (6.3-8.2)
[2020-05-27] MEDS: CARVEDILOL 3.125 MG TABLET NG SCH ×2 (08:33→10:29)
[2020-05-27] MEDS: INSULIN REG, HUMAN 100 UNIT/ML 3 ML VIAL (PYX) SUBCUT SCH ×3 (08:34→18:13)
[2020-05-27] MEDS: QUETIAPINE FUMARATE 25 MG TABLET NG SCH (08:35)
[2020-05-27] MEDS: PIPERACILLIN SODIUM/TAZOBACTAM 3.375 GM in NORMAL SALINE 100 ML IV SCH ×3 (08:36→09:30)
[2020-05-27 08:39] LABS: HEMATOCRIT 20.8 % (36.0-47.0); MEAN CORPUSCULAR HEMOGLOBIN 29.5 pg (27.0-33.4); MEAN CORPUSCULAR HGB CONC 32.4 g/dL (32.0-36.0); MEAN CORPUSCULAR VOLUME 91 fl (80-97); RED BLOOD COUNT 2.28 10^6/uL (3.72-5.28); RED CELL DISTRIBUTION WIDTH 23.4 % (11.5-14.0)
[2020-05-27] MEDS: HALOPERIDOL 0.5 MG TABLET NG SCH ×2 (08:42→10:25)
[2020-05-27 08:54] LABS: ARTERIAL BLOOD BASE EXCESS -2.5 mmol/L; ARTERIAL BLOOD FIO2 85%; ARTERIAL BLOOD H2CO3 1.64 mmol/L (1.05-1.35); ARTERIAL BLOOD HCO3 24.4 mmol/L (20-24); ARTERIAL BLOOD O2 SATURATION 79.3 % (94-98); ARTERIAL BLOOD PCO2 54.4 mmHg (35-45); ARTERIAL BLOOD PH 7.27 (7.35-7.45); ARTERIAL BLOOD PO2 49.8 mmHg (80-100)
[2020-05-27 09:00] LABS: ASPARTATE AMINO TRANSFERASE 4498 U/L (14-36)
[2020-05-27 09:07] LABS: ABSOLUTE LYMPHOCYTES# (MANUAL) 1.7 10^3/uL (0.5-4.7); ABSOLUTE MONOCYTES # (MANUAL) 0.3 10^3/uL (0.1-1.4); BASOPHILS % (MANUAL) 0 % (0-2); EOSINOPHILS % (MANUAL) 0 % (0-6); LYMPHOCYTES % (MANUAL) 11 % (13-45); MONOCYTES % (MANUAL) 2 % (3-13); NUCLEATED RED BLOOD CELLS 2 /100 WBC (0); SEGMENTED NEUTROPHILS % (MAN) 87 % (42-78); TOTAL CELLS COUNTED 100
[2020-05-27 09:11] LABS: ANISOCYTOSIS 3+; PLATELET COMMENT DECREASED; POLYCHROMASIA SLIGHT
[2020-05-27 09:12] LABS: HEMOGLOBIN 6.7 g/dL (12.0-15.5)
[2020-05-27 09:13] LABS: PLATELET COUNT 92 10^3/uL (150-450)
[2020-05-27] MEDS ORDERED: NORMAL SALINE 250 ML IV PRN ×2 (10:02)
[2020-05-27] MEDS: AMINO AC/PROTEIN HYDR/WHEY PRO 11 GM/45 ML PKT NG SCH ×3 (10:24→18:25)
[2020-05-27] MEDS: FAMOTIDINE INJ/PF 20 MG/2 ML SDV IV SCH (10:24)
[2020-05-27] MEDS: METHYLPREDNISOLONE INJ 40 MG/1 ML SDV IV SCH (10:24)
[2020-05-27] MEDS: RINGERS SOLUTION,LACTATED 1,000 ML IV PRN (10:29)
[2020-05-27] MEDS: INSULIN GLARGINE,HUM.REC.ANLOG 1,000 UNIT/10 ML VIAL SUBCUT SCH (10:49)
[2020-05-27] MEDS: LEVETIRACETAM 1000 MG/NACL-ISO 1,000 MG/100 ML RTUPB IV SCH (10:51)
[2020-05-27] MEDS: HEPARIN SODIUM,PORCINE/D5W 25,000 UNIT/250 ML RTUINJ IV PRN (14:36)
--- NOTE | 2020-05-27 18:37 | PDOC CRITICAL CARE PROG REPORT ---
General Date:: 05/27/20 ICU Day:: 58 Ventilator Day:: 58 - Tracheostomy 05/08/2020 ([facility]) Hospital Day:: 67 Resuscitation Status: Full Code Events in the past 12 to 24 Hours:: This 44-year-old -[place] female presented to [facility] emergency department on 03/21/2020 with complaints of possible presyncope versus syncope in addition to fever, chills, productive cough, dyspnea and exertional d yspnea. She has a history of psychiatric disorders and is known to be a difficult historian. Nonetheless, the patient also was known to have been diagnosed with COVID-19 pneumonia on 03/17/2020 and had subsequently been evaluated in the emergency department. She was apparently discharged home with prescriptions for azithromycin and other medications for symptomatic treatment. She returned with worsening shortness of breath and newly demonstrating supplemental oxygen requirement. 04/09-04/10: Remains intubated. Sedated with Precedex/Versed/fentanyl. On pressure control mode with peak and plateau pressures in the 40s. On insulin infusion for glucose control. On Glucerna + Prosource. KUB obtained showed a gasless abdomen, incongruent with physical exam (possibly due to morbid obesit y). Still no BM. 04/11-: Had brisk diuresis with furosemide 40 mg IV single dose (2600 mL urine output), which resulted in a decrease in CVP. However, CVP is now back up to 910. On PRVC mode. ABG this a.m.: 7.46/46/53. Creatinine 0.6. WBC 17.3>11.4. Still no BM. On Versed/fentanyl/Precedex for sedation. Opens eyes to physical stimuli. Tube feeding currently on hold due to high residuals. Of note, even in the absence of tube feeding, the patient is having gastric residuals in the 200s. She does demonstrate spontaneous eye opening. She does not follow commands. 04/13-: Switched to BiVENT/APRV on 04/12/2020 (FiO2 80%, P high 17, T high 9.5 seconds, P low 3, T low 0.5 seconds). ABG this a.m.: 7.42/50/72. Off insulin infusion. Overnight, the patient had an episode of hypoglycemia (40) despite being on trickle tube feeds. Blood cultures (04/13) isolated gram-positive cocci in clusters. Tracheal aspirate (04/13) isolated Staphylococcus aureus. GPC is MSSA sens to rocephin. Still unsure if it's a contaminate. No progress made on ventilator. Changed back to PRVC on 04/16. Still 100% and PEEP 14. 04/18: CXR looks better. Will try weaning today. FiO2 first. 04/19-: Not able to wean yesterday. O2 saturations 95-96%. Will wean PEEP. Down to 10 in effort to lower PEEP for trach which I believe she will need. No weaning on drips yet. Will need trach and PEG. O2 saturations worse, in mid to low 80s on 100%. Talked with Dr. Owen regarding need for trach next week. 04/23: Remains intubated. On rocuronium, Versed and fentanyl infusions. FiO2 95%. PRVC. WBC 13.6. D-dimer 3.14. CRP 59.1. Magnesium 1.5. 04/24: Rocuronium was discontinued yesterday. The patient's ventilator mode was switched to BiVENT. Versed changed to propofol. Still on fentanyl. On BiVENT. Laurens sedated. 04/25: Yesterday afternoon, she developed acute hypoxemic decompensation followed by profound hypotension. Clinically, this was highly suspicious for pulmonary embolism. She was started on heparin infusion. SVO2 was found to be 15%. She was started on dobutamine. Ventilator settings were changed. She is still on BiVENT/APRV but now with settings that closely mimic inverse I:E pressure control ventilation. FiO2 100%. P high 20, P low 10, T high 1.5, T low 0.5. 04/26: COVID-19 (HUGH from 04/23) finally returned to negative result. Dobutamine changed to milrinone yesterday. Still on BiVENT/APRV but has been tolerating lower pressures in longer T high times. Had an episode of oxygen desaturation again this morning. Clinically, it appears that she is having increased secretions from the airway, possibly with mucous plugging. Settings were changed subsequent to oxygen desaturation: P high 30, P low 10, T high 1.5, T low 0.5. ABG this a.m.: 7.36/51/69. Diuresing, -869 mL yesterday. proBNP 5880. BM +. 04/27: Laurens sedated, synchronous with ventilator. BG this a.m. 7.28/64/78. WBC 25.8 this AM. CRP 200. D-dimer 2.04. 04/28: WBC down to 25.8>14.8 this AM. Not on antibiotics. However, hemoglobin also dropped to 6.6. Repeat hemoglobin 6.2. No obvious blood loss. Blood urine and tracheal aspirate cultures from 04/27 pending. On propofol/Precedex/fentanyl. Triglycerides 183. 04/29: Febrile (T-max 24-hour 102.7 Fahrenheit), reportedly refractory to Tylenol and cooling blanket. WBC 28.3. Hemoglobin 6.2>9 after transfusion of 2 units PRBC yesterday. Started on vancomycin overnight due to gram-positive cocci in trach aspirate (04/27), which are now being reported as MRSA. Also, blood cultures (1 of 2) are growing out Staphylococcus species, possibly a contaminant. Still on propofol/Precedex/fentanyl for sedation. Started Versed overnight as well. On BiVENT/APRV: P high 20, P low 3, T high 5.5, T low 0.5. + PSV 15. 04/30: Bun/Cr slightly up. Vancomycin stopped. Linezolid started. Off propofol, may have had propofol infusion syndrome. 05/01: Only small changes in vent made as tolerated. 05/02: Decrease in H/H today, likely anemia of chronic disease. No apparent signs of bleeding. I was able to lower her inspiratory time (PEEP high) slightly without any significant change in SPO2. Her FiO2 was also decreased to 90%. No other significant changes. Plan will be to consult surgery for tracheostomy placement. 05/03/2020: Small incremental changes made on the ventilator today. FiO2 weaned slightly. No other significant changes. 05/04/2020: Patient has had a small bit of progress with weaning her FiO2. We will continue as tolerated and make attempts to wean her bilevel as well today. 05/05/2020: No significant changes over the past 24 hours. Patient has been saturating well with 80 to 90% FiO2. Overall plan today is to continue to wean. Patient will need tracheostomy tube. 05/06: Overall no major change. Has been seen by Dr. Manriquez regarding need for trach 05/05. 05/07: Plan for tracheostomy on 05/08. 05/08: Patient underwent uneventful tracheostomy today. 05/09: Starting to come down on sedation. 05/10: Off versed. May have to increase fentanyl. 05/11: Not able to make changes to vent. Not awakening off versed. 05/12: Seems to be calmer with addition of seroquel, although to early to tell. 05/13: Still having intermittent agitation. Seems less. 05/14: Off Precedex infusion this morning. On Ativan and Lortab per NG tube, tapering. Waking up. Follows commands. Mouthing words over ET tube. Occasional cough. Purulent secretions noted from the tracheostomy site. Still on BiVENT (P high 30, P low 10, T high 1.2, T low 0.8 + PSV 10). On cefe pime/linezolid for trach aspirate (05/09) isolating E cloacae and S. aureus and MRSA bacteremia (05/09). T-max 100.6 today. 05/15: Continues to be febrile. On cefepime/Zyvox. WBC 22.2. Cultures pending, but it appears preliminary results suggest trach aspirate is isolating gram- negative rods. K 2.6 this morning. 05/16: Afebrile this morning with overall downward trend in temperature curve overnight. Started on meropenem and GINO nebs for gram-negative coverage. Trach wound is isolating Enterobacter cloacae in addition to gram-positive cocci in chains. WBC 22.2>18.2. Mentating well. Follows some commands, hindered by generalized weakness. 05/17: Febrile this morning (afebrile since 1800 yesterday). On meropenem/GINO for gram-negative coverage. Also on Zyvox. Trach wound isolated Enterobacter cloacae and Staph aureus. WBC 18.2>20. 05/18: Gets agitated at times and may be in pain. 05/19: When coughing her O2 saturations will go from 81-95% in less than a minute. Not accurate. Awake at times not following commands. 05/20: FIO2 back up to 100%, not clear why. PSV and PEEP still at 12. 05/21: Only able to make small changes to PEEP and PSV. Still on 90%. 05/22: PEEP and PSV at 10. FIO2 still 90%. 05/24: No change 05/25: Afebrile. WBC 17.5. Magnesium 1.6. On pressure control (f 16, Pi 15+PEEP, PEEP 10), FiO2 100%. Tachycardic. Hypertensive. Currently on Precedex. Of note, the patient was on Ativan and Dilaudid to wean from her prolonged Versed/fentanyl infusions while endotracheally intubated. These medications have apparently fallen off of her medication list. 05/26: Experienced cardiopulmonary arrest overnight. Per shiftman report, the patient developed bradycardia arrhythmia and hypotension and progressed to asystole. CPR was administered. Currently off sedation. On dopamine/norepinephrine/vasopressin for blood pressure support. Of note, WBC 41.2 this AM. Afebrile. ABG this a.m.: 7.33/35/144. On PRVC 20/450/90/10. But, Ppeak 53-55. Off all sedation. Only shows flickering of the eyes and lips at rest and with noxious stimuli. 05/27: Eyes closed. No response to noxious stimuli. Synchronous with ventilator. Now on pressure control mode. Sinus bradycardia on the monitor. Off dopamine. Off vasopressin. On and off norepinephrine. Off sedation for neurologic exam. Review of systems relevant to events:: Pulmonary, neurological. Reason for ICU Addmission:: acute respiratory failure, covid -19 pneumonia, Has trach, on vent. - Medications: Medications reviewed and adjusted accordingly: Yes Vasopressors:: Norepinephrine Sedation:: None Physical Exam Vital Signs: Temp Pulse Resp BP Pulse Ox 96.6 F L 87 21 H 79/53 L 99 05/26/20 18:00 05/26/20 22:20 05/27/20 00:19 05/27/20 00:19 05/27/20 00:19 Intake & Output 05/26/20 05/27/20 05/28/20 06:59 06:59 06:59 Intake Total 1970 1173 Output Total 2990 580 Balance -1020 593 Weight 142.4 kg 142.2 kg Weight/Height Weight 142.2 kg Height 1.6 m General appearance: PRESENT: no acute distress, morbidly obese, well-developed, well-nourished Head exam: PRESENT: atraumatic, normocephalic Neck exam: PRESENT: tracheostomy Respiratory exam: PRESENT: clear to auscultation reji. ABSENT: rales, rhonchi, wheezes Cardiovascular exam: PRESENT: bradycardia, RRR. ABSENT: diastolic murmur, rubs, systolic murmur Neurological exam: PRESENT: altered, motor sensory deficit, other - No cough/gag. No doll's eyes. No corneal reflex. Synchronous with ventilator. No deep tendon reflexes. Flaccid paralysis.. ABSENT: alert, awake, reflexes normal, CN II-XII grossly intact Tubes/Lines: PRESENT: Central Line, Arterial Catheter, Nasogastic Tube Laboratory/Radiographs Laboratory Results: 05/26/20 05/26/20 05/26/20 04:10 09:05 13:06 WBC 41.2 H* RBC 2.89 L Hgb 8.5 L Hct 26.8 L MCV 93 MCH 29.2 MCHC 31.6 L RDW 22.6 H Plt Count 174 Carbonic Acid 1.22 HCO3/H2CO3 Ratio 15:1 ABG pH 7.29 L ABG pCO2 40.6 ABG pO2 80.8 ABG HCO3 19.0 L ABG O2 Saturation 94.7 ABG Base Excess -7.1 FiO2 90% Lactic Acid 7.0 H 05/26/20 05/26/20 05/26/20 16:40 17:00 23:15 WBC RBC Hgb Hct MCV MCH MCHC RDW Plt Count Carbonic Acid 1.22 1.28 1.77 H HCO3/H2CO3 Ratio 17:1 17:1 12:1 ABG pH 7.34 L 7.34 L 7.20 L* ABG pCO2 40.4 42.6 58.8 H ABG pO2 81.6 40.6 L* 96.6 ABG HCO3 21.1 22.6 22.5 ABG O2 Saturation 95.4 72.9 L 95.7 ABG Base Excess -4.4 -2.9 -5.4 FiO2 95% 95% 85% Lactic Acid 05/27/20 07:00 WBC RBC Hgb Hct MCV MCH MCHC RDW Plt Count Carbonic Acid 1.59 H HCO3/H2CO3 Ratio 15:1 ABG pH 7.27 L ABG pCO2 52.8 H ABG pO2 145.5 H ABG HCO3 23.9 ABG O2 Saturation 98.5 H ABG Base Excess -3.0 FiO2 85% Lactic Acid 03/21/20 04/11/20 04/14/20 21:58 03:05 01:59 Creatine Kinase Troponin I < 0.012 NT-Pro-B Natriuret Pep 192 H 184 H 04/24/20 04/25/20 04/26/20 14:18 09:01 03:53 Creatine Kinase Troponin I 0.012 NT-Pro-B Natriuret Pep 7620 H 5880 H 04/30/20 03:50 Creatine Kinase 301 H Troponin I NT-Pro-B Natriuret Pep Impressions: Abdomen Ultrasound 04/10/20 00:00 IMPRESSION: NO EVIDENCE FOR ASCITES. KUB X-Ray 04/29/20 00:00 IMPRESSION: NG tube is present with side port and tip overlying the body of the stomach. Chest X-Ray 05/26/20 16:32 IMPRESSION: No significant change. All labs, radiographs, diagnostic studies and EKGs were personally reviewed: Yes In addition, reports of radiographic and diagnostic studies were read: Yes Assessment and Plan - Diagnosis (1) Anoxic encephalopathy Is this a current diagnosis for this admission?: Yes Plan: * Currently, this patient's neurological exam raises suspicion for brain . * Apnea test would be warranted at this time; however, her PaO2 (thus far) has not satisfied the PaO2 200 requirement (on FiO2 100%). Will increase FiO2 to 100% and recheck ABG. * Also, to eliminate any potential confounding from sedative/hypnotic medications, will review medication list and discontinue all potentially offending agents. * EEG scheduled for Thursday. This was originally scheduled for evaluation of possible seizure activity. This will be changed for brain evaluation. (2) Shock Is this a current diagnosis for this admission?: Yes Plan: * Upward trend and SvO2 suggestive of septic shock. * Stool for C. difficile toxin was negative. Repeat blood, urine and tracheal aspirate cultures are pending: No growth to date. * Start maintenance IV fluids: Lactated Ringer's at 100 mL/h. (3) Cardiopulmonary arrest Is this a current diagnosis for this admission?: Yes Plan: * 05/25/2020 * maintain off sedation to allow neurological assessment. (4) Shock liver Is this a current diagnosis for this admission?: Yes (5) Acute respiratory failure with hypoxia and hypercapnia Is this a current diagnosis for this admission?: Yes Plan: * Currently, in pressure control mode. Titrate ventilator settings based on ABG results. * In order to permit apnea testing, the patient will need to be able to preoxygenate on FiO2 100% to a PaO2 > 200. (6) Pneumonia due to COVID-19 virus Is this a current diagnosis for this admission?: Yes (7) Leukocytosis Qualifiers: Leukocytosis type: unspecified Qualified Code(s): D72.829 - Elevated white blood cell count, unspecified Is this a current diagnosis for this admission?: Yes (8) Steroid-induced hyperglycemia Is this a current diagnosis for this admission?: Yes (9) Normocytic anemia Is this a current diagnosis for this admission?: Yes (10) Staphylococcus aureus bacteremia Is this a current diagnosis for this admission?: Yes (11) Infection caused by Enterobacter cloacae Is this a current diagnosis for this admission?: Yes Critical Time Critical Time (minutes): 60 Level of Care: ICU -: 1. The care of a critical patient is a dynamic process. This note is a inside technical sales representative synopsis but static in nature. The timeframe for treatments given in order is not necessarily the actual time these treatments may have been done. 2. This patient requires critical care secondary to ongoing requirements for therapy not offered or safe outside the critical care environment. Transfer to a lower level of care will result in altered life or limb morbidity and mortality. 3. Multidisciplinary rounds completed. 4. ABCDE bundle addressed.
[2020-05-27 19:09] LABS: ARTERIAL BLOOD BASE EXCESS -2.7 mmol/L; ARTERIAL BLOOD H2CO3 1.11 mmol/L (1.05-1.35); ARTERIAL BLOOD O2 SATURATION 94.4 % (94-98); ARTERIAL BLOOD PH 7.39 (7.35-7.45); ARTERIAL BLOOD PO2 71.3 mmHg (80-100); ARTERIAL BLOOD TOTAL CO2 23.1 mmol/L (21-25)
[2020-05-27 19:13] LABS: ARTERIAL BLOOD FIO2 100%
[2020-05-27 21:32] LABS: HEMATOCRIT 27.6 % (36.0-47.0); MEAN CORPUSCULAR HGB CONC 33.4 g/dL (32.0-36.0); MEAN CORPUSCULAR VOLUME 90 fl (80-97); PLATELET COUNT 111 10^3/uL (150-450); RED BLOOD COUNT 3.07 10^6/uL (3.72-5.28); RED CELL DISTRIBUTION WIDTH 19.2 % (11.5-14.0); WHITE BLOOD COUNT 13.9 10^3/uL (4.0-10.5)
[2020-05-27 21:53] LABS: HEMOGLOBIN 9.2 g/dL (12.0-15.5)
[2020-05-27 22:12] LABS: ARTERIAL BLOOD BASE EXCESS -6.7 mmol/L; ARTERIAL BLOOD H2CO3 1.24 mmol/L (1.05-1.35); ARTERIAL BLOOD HCO3 19.5 mmol/L (20-24); ARTERIAL BLOOD O2 SATURATION 66.7 % (94-98); ARTERIAL BLOOD PCO2 41.3 mmHg (35-45); ARTERIAL BLOOD PH 7.29 (7.35-7.45); ARTERIAL BLOOD TOTAL CO2 20.7 mmol/L (21-25)
[2020-05-27] MEDS ORDERED: LEVALBUTEROL HCL NEB 1.25 MG/3 ML AMPUL NEB ONE (22:12)
[2020-05-27 22:15] LABS: ARTERIAL BLOOD FIO2 100%
[2020-05-27 22:16] LABS: ARTERIAL BLOOD PO2 38.4 mmHg (80-100)
--- NOTE | 2020-05-28 01:42 | Death Summary ---
<NIKKY CEE - Last Filed: 05/28/20 01:40> Summary Date : 05/28/20 Time of :: 00:34 Autopsy: No Resuscitation Status: Do Not Resuscitate - Final Diagnosis (1) Acute hypoxemic respiratory failure Is this a current diagnosis for this admission?: Yes (2) Acute respiratory failure with hypoxia and hypercapnia Is this a current diagnosis for this admission?: Yes (3) Anemia Is this a current diagnosis for this admission?: Yes (4) Anoxic encephalopathy Is this a current diagnosis for this admission?: Yes (5) COVID-19 Is this a current diagnosis for this admission?: Yes (6) Cardiopulmonary arrest Is this a current diagnosis for this admission?: Yes (8) Obesity Is this a current diagnosis for this admission?: Yes (9) Ventilator dependence Is this a current diagnosis for this admission?: Yes <MARCIE JEONG - Last Filed: 05/28/20 13:12> Summary - Final Diagnosis (1) Anoxic encephalopathy Is this a current diagnosis for this admission?: Yes (2) Shock Is this a current diagnosis for this admission?: Yes (3) Cardiopulmonary arrest Is this a current diagnosis for this admission?: Yes (4) Shock liver Is this a current diagnosis for this admission?: Yes (5) Acute respiratory failure with hypoxia and hypercapnia Is this a current diagnosis for this admission?: Yes (6) Pneumonia due to COVID-19 virus Is this a current diagnosis for this admission?: Yes (7) Leukocytosis Is this a current diagnosis for this admission?: Yes (8) Steroid-induced hyperglycemia Is this a current diagnosis for this admission?: Yes (9) Normocytic anemia Is this a current diagnosis for this admission?: Yes (10) Staphylococcus aureus bacteremia Is this a current diagnosis for this admission?: Yes (11) Infection caused by Enterobacter cloacae Is this a current diagnosis for this admission?: Yes Hospital Course:: Please refer to discharge summary (timestamp: 05/28/2020 [id number]) for complete documentation.
[2020-05-28 01:47] VITALS: BP 58/44
--- NOTE | 2020-05-28 02:45 | PDOC DISCHARGE SUMMARY ---
Impression - Admit/DC Date/PCP Admission Date/Primary Care Provider: 03/21/20 23:56 ASHUTOSH LLAMAS NP 03/22/2020 Discharge Date: 05/28/20 - - Discharge Diagnosis (1) Acute hypoxemic respiratory failure Is this a current diagnosis for this admission?: Yes (2) Acute respiratory failure with hypoxia and hypercapnia Is this a current diagnosis for this admission?: Yes (3) Anemia Is this a current diagnosis for this admission?: No (4) Anoxic encephalopathy Is this a current diagnosis for this admission?: Yes (5) COVID-19 Is this a current diagnosis for this admission?: Yes (6) Cardiopulmonary arrest Is this a current diagnosis for this admission?: Yes (8) Obesity Is this a current diagnosis for this admission?: Yes (9) Ventilator dependence Is this a current diagnosis for this admission?: Yes - Assessment Summary: She continues on IV remdesivir. Psychiatry consultation is not appropriate at this time because the patient is not medically stable which would confound any evaluation. Creatinine is now normal. Acute kidney injury resolved. Continue Decadron. Continue oxygen support. Empiric antibiotics were started to treat any potential coexisting bacterial pneumonia. We transfused 2 units of packed red cells yesterday to assist with oxygen delivery. She is now on CPAP with a PEEP of 10 and 100% oxygen. She is receiving maximal treatment at this point but unfortunately her hypoxemia seems to be progressing. She cannot be reasoned with and she will try to focus on taking deeper breaths. I have added a small dose of morphine to see if it will help her relax and breathe more effectively. 03/30 patient is still pretty tachypneic and tachycardic. She is also spiking fevers. She remains on 100% oxygen on CPAP. Patient's condition is very precarious and prognosis is guarded. We will continue with the IV dexamethasone continue with Tylenol [place] or IV if available and I will also put on morphine IV as this seems to calm her down somewhat. I have also added low-dose Lopressor to her regimen as she remains tachycardic 03/31She has not had a chest x-ray since the and ABG done yesterday evening revealed persistent hypoxemia with hypercapnia she remains on dexamethasone 6 mg IV daily. She was started on IV fluid yesterday as her oral intake was very poor due to inability to remove the CPAP for any appreciable time before becoming more hypoxemic. Due to patient's critical condition she is being transferred to the intensive care unit. Prognosis remains very poor - Additional Information Resuscitation Status: Do Not Resuscitate Referrals: SONJA BURNS DDS [ACTIVE STAFF] - Follow up as needed Home Medications: Ascorbic Acid [C-1000] 1,000 mg PO BID 03/22/20 Cholecalciferol (Vitamin D3) [Vitamin D3] 75 mcg PO DAILY 03/22/20 Zinc [Zinc Chelated] 50 mg PO DAILY 03/22/20 History of Present Illiness History of Present Illness: CRAIG MCKEON is a 44 year old female 44 year old female who was admitted on 03/22/2021 under the hospitalist services for increased sob and covid. The pateint was doing well with treatment for covid but on 04/01 she had a turn for the worse in which she coded on the floor. She was transferred to the intensives services due to post arrest. The patient continued treatment for her DX of covid and continued to decline in emani. The patient had been intubated and the decision was made to trach her. The patient had been having slight improvements until last PM when the patient had tucker cadic and then went into systole. The patient regained ROSC. the patient was unabl to maintain her oxygen saturation despite max vent support tonight . I called the patients sister Anna and informed her of the poor prognosis of her sister. She arrived at the bedside and the decision was made for the patient to be DNR. Hospital Course Hospital Course: Patient admitted to the hospitalist services march 22, 2020 for COVID 19 PNA. She was started on treatment and on 04/01 the patient had a cardiac arrest and was transferred to the ICU. The patient was unable to be extubated from the vent and the decision to trach was made. The patient condition remained unstable. On 05/27 she had another cardiac arrest episode and on 05/28 she was unable to maintain her sats and her sister was informed of this and made aware of her poor prognosis. The decision to make her a DNR was obtained. Physical Exam Vital Signs: Temp Pulse Resp BP Pulse Ox 94.1 F L 110 H 34 H 166/96 H 73 L 05/27/20 19:41 05/27/20 22:13 05/27/20 22:13 05/27/20 19:40 05/27/20 22:13 Intake & Output 05/26/20 05/27/20 05/28/20 06:59 06:59 06:59 Intake Total 1970 3323 515 Output Total 2990 680 62 Balance -1020 0213 453 Weight 142.4 kg 142.2 kg General appearance: PRESENT: other - . ABSENT: no acute distress, cooperative, disheveled, hard of hearing, mild distress, morbidly obese, obese, severe distress, thin, well-developed, well-nourished Head exam: ABSENT: atraumatic, normocephalic, other Eye exam: ABSENT: conjunctival injection, conjunctiva pink, conjunctiva pale, EOMI, nystagmus, periorbital swelling, PERRLA, scleral icterus, other Ear exam: ABSENT: bleeding, drainage, normal external ear exam, TM's normal bilaterally, other Mouth exam: ABSENT: dry mucosa, laceration, moist, neck supple, tongue midline, other Teeth exam: ABSENT: dental caries, dental tenderness, edentulous, poor dentation, other Throat exam: ABSENT: post pharyngeal erythema, tonsillar erythema, tonsillar exudate, tonsillogmegaly, other Neck exam: ABSENT: carotid bruit, full ROM, JVD, lymphadenopathy, meningismus, tenderness, thyromegaly, tracheal deviation, tracheostomy, other Respiratory exam: ABSENT: accessory muscle use, chest wall tenderness, clear to auscultation reji, crackles, decreased breath sounds, prolonged expiratory phas, rales, retraction, rhonchi, stridor, symmetrical, tachypnea, unlabored, wheezes, other Cardiovascular exam: ABSENT: bradycardia, clicks, diastolic murmur, gallop, irregular rhythm, RRR, rubs, +S1, +S2, systolic murmur, tachycardia, other Pulses: ABSENT: normal carotid pulses, normal radial pulses, normal femoral pulses, normal dorsalis pedis pul, +1 pedal pulses bilateral, +2 pedal pulses bilateral, other GI/Abdominal exam: ABSENT: ascites, diminished bowel sounds, distended, firm, guarding, hernia, hyperactive bowel sounds, hypoactive bowel sounds, mass, Gatica's sign, normal bowel sounds, organolmegaly, rebound, rigid, soft, tenderness, other Rectal exam: ABSENT: deferred, black stool, bloody stool, decreased rectal tone, fecal impaction, heme (-) stool, heme (+) stool, hemorrhoids, laceration, mass, normal inspection, normal prostate, normal rectal tone, prostate enlargement, prostate tenderness, tenderness, other Gentrourinary exam: ABSENT: ecchymosis, erythema, lacerations, lesions, scrotal swelling, testicular tenderness, urethral discharge, indwelling catheter, other Extremities exam: ABSENT: calf tenderness, clubbing, full ROM, joint swelling, pedal edema, tenderness, +1 edema, +2 edema, other Musculoskeletal exam: ABSENT: ambulatory, deformity, dislocation, full ROM, normal inspection, tenderness, other Neurological exam: ABSENT: alert, altered, awake, oriented to person, oriented to place, oriented to time, oriented to situation, reflexes normal, abnormal gait, ataxia, CN II-XII grossly intact, motor sensory deficit, normal gait, aphasic, other Psychiatric exam: ABSENT: agitated, anxious, appropriate affect, depressed, flat affect, homicidal ideation, manic, normal mood, suicidal ideation, unusual affect, other Focused psych exam: ABSENT: catatonic, delusional, euphoric, flight of ideas, internal stimuli, paranoid, pressured speech, psychomotor agitation, restlessness, other Skin exam: ABSENT: abrasion, cyanosis, dry, erythema, intact, jaundice, mottled, normal color, pallor, petechiae, rash, skin tears, urticaria, vesicles, warm, other Results Laboratory Results: WBC 13.9 10^3/uL (4.0-10.5) H 05/27/20 21:15 RBC 3.07 10^6/uL (3.72-5.28) L 05/27/20 21:15 Hgb 9.2 g/dL (12.0-15.5) L D 05/27/20 21:15 Hct 27.6 % (36.0-47.0) L 05/27/20 21:15 MCV 90 fl (80-97) 05/27/20 21:15 MCH 30.0 pg (27.0-33.4) 05/27/20 21:15 MCHC 33.4 g/dL (32.0-36.0) 05/27/20 21:15 RDW 19.2 % (11.5-14.0) H 05/27/20 21:15 Plt Count 111 10^3/uL (150-450) L 05/27/20 21:15 Lymph % (Auto) Not Reportable 05/27/20 08:20 Dillon % (Auto) Not Reportable 05/27/20 08:20 Eos % (Auto) Not Reportable 05/27/20 08:20 Baso % (Auto) Not Reportable 05/27/20 08:20 Absolute Neuts (auto) Not Reportable 05/27/20 08:20 Absolute Lymphs (auto) Not Reportable 05/27/20 08:20 Absolute Monos (auto) Not Reportable 05/27/20 08:20 Absolute Eos (auto) Not Reportable 05/27/20 08:20 Absolute Basos (auto) Not Reportable 05/27/20 08:20 Total Counted 100 05/27/20 08:20 Seg Neutrophils % Not Reportable 05/27/20 08:20 Seg Neuts % (Manual) 87 % (42-78) H 05/27/20 08:20 Band Neutrophils % 5 % (3-5) 05/26/20 04:10 Lymphocytes % (Manual) 11 % (13-45) L 05/27/20 08:20 Atypical Lymphs % 1 % (0) 05/12/20 04:35 Monocytes % (Manual) 2 % (3-13) L 05/27/20 08:20 Eosinophils % (Manual) 0 % (0-6) 05/27/20 08:20 Basophils % (Manual) 0 % (0-2) 05/27/20 08:20 Metamyelocytes % 2 % (0-1) H 05/26/20 04:10 Abs Neuts (Manual) 13.1 10^3/uL (1.7-8.2) H 05/27/20 08:20 Abs Lymphs (Manual) 1.7 10^3/uL (0.5-4.7) 05/27/20 08:20 Abs Monocytes (Manual) 0.3 10^3/uL (0.1-1.4) 05/27/20 08:20 Absolute Eos (Manual) 0.0 10^3/uL (0.0-0.6) 05/27/20 08:20 Abs Basophils (Manual) 0.0 10^3/uL (0.0-0.2) 05/27/20 08:20 Nucleated RBCs 2 /100 WBC (0) 05/27/20 08:20 Toxic Granulation SLIGHT 05/25/20 23:55 Toxic Vacuolation PRESENT 05/09/20 05:00 Platelet Estimate Cancelled 05/27/20 07:00 Clumped Platelets PRESENT 05/26/20 04:10 Large Platelets PRESENT 05/12/20 04:35 Platelet Comment DECREASED 05/27/20 08:20 Polychromasia SLIGHT 05/27/20 08:20 Hypochromasia SLIGHT 05/25/20 04:06 Poikilocytosis 1+ 05/26/20 04:10 Anisocytosis 3+ 05/27/20 08:20 Microcytosis 1+ 05/07/20 05:51 Target Cells 1+ 05/24/20 03:46 Tear Drop Cells 2+ 05/25/20 23:55 Ovalocytes 1+ 05/25/20 23:55 Stomatocytes 1+ 05/24/20 03:46 [place] Cells 1+ 05/01/20 03:40 Schistocytes SLIGHT 05/25/20 23:55 PT 18.3 SEC (11.4-15.4) H 03/31/20 06:01 INR 1.50 03/31/20 06:01 APTT 88.9 SEC (23.5-35.8) H 05/27/20 07:00 D-Dimer 14.03 ug/mL (0.00-0.50) H 05/27/20 07:00 Carbonic Acid 1.24 mmol/L (1.05-1.35) 05/27/20 22:00 HCO3/H2CO3 Ratio 15:1 05/27/20 22:00 ABG pH 7.29 (7.35-7.45) L 05/27/20 22:00 ABG pCO2 41.3 mmHg (35-45) 05/27/20 22:00 ABG pO2 38.4 mmHg (80-100) L* 05/27/20 22:00 ABG HCO3 19.5 mmol/L (20-24) L 05/27/20 22:00 ABG Total CO2 20.7 mmol/L (21-25) L 05/27/20 22:00 ABG O2 Saturation 66.7 % (94-98) L 05/27/20 22:00 ABG Base Excess -6.7 mmol/L 05/27/20 22:00 VBG pH 7.39 (7.30-7.42) 03/21/20 21:58 VBG pCO2 46.6 mmHg (35-63) 03/21/20 21:58 VBG HCO3 27.8 mmol/L (20-32) 03/21/20 21:58 VBG Base Excess 2.2 mmol/L 03/21/20 21:58 FiO2 100% 05/27/20 22:00 Sodium 132.5 mmol/L (137-145) L 05/27/20 07:00 Potassium 3.4 mmol/L (3.6-5.0) L 05/27/20 07:00 Chloride 96 mmol/L (98-107) L 05/27/20 07:00 Carbon Dioxide 29 mmol/L (22-30) 05/27/20 07:00 Anion Gap 8 (5-19) 05/27/20 07:00 BUN 58 mg/dL (7-20) H 05/27/20 07:00 Creatinine 1.18 mg/dL (0.52-1.25) 05/27/20 07:00 Est GFR ( Amer) > 60 (>60) 05/27/20 07:00 Est GFR (Non-Af Amer) Cancelled 05/12/20 04:35 Est GFR (MDRD) Non-Af 50 (>60) L 05/27/20 07:00 Glucose 144 mg/dL (75-110) H 05/27/20 07:00 POC Glucose 208 mg/dL (70-110) H 05/25/20 17:13 Hemoglobin A1c % 6.0 % (4.7-6.0) 04/14/20 01:59 Lactic Acid 7.0 mmol/L (0.7-2.1) H 05/26/20 09:05 Calcium 7.9 mg/dL (8.4-10.2) L 05/27/20 07:00 Phosphorus 7.9 mg/dL (2.5-4.5) H 05/27/20 07:00 Magnesium 2.1 mg/dL (1.6-2.3) 05/27/20 07:00 Ferritin 52.10 ng/mL (6.2-137.0) 04/13/20 03:00 Total Bilirubin 2.9 mg/dL (0.2-1.3) H 05/27/20 07:00 Direct Bilirubin 1.6 mg/dL (0.0-0.4) H 05/27/20 07:00 Neonat Total Bilirubin Not Reportable 05/27/20 07:00 Neonat Direct Bilirubin Not Reportable 05/27/20 07:00 Neonat Indirect Bili Not Reportable 05/27/20 07:00 AST 4498 U/L (14-36) H 05/27/20 07:00 ALT 4933 U/L (<35) H 05/27/20 07:00 Alkaline Phosphatase 193 U/L (38-126) H 05/27/20 07:00 Lactate Dehydrogenase 717 U/L (120-246) H 03/24/20 04:12 Creatine Kinase 301 U/L (30-135) H 04/30/20 03:50 Troponin I 0.012 ng/mL 04/24/20 14:18 C-Reactive Protein 28.4 mg/L (<10.0) H 05/23/20 04:18 NT-Pro-B Natriuret Pep 5880 pg/mL (<125) H 04/26/20 03:53 Total Protein 5.6 g/dL (6.3-8.2) L 05/27/20 07:00 Albumin 2.8 g/dL (3.5-5.0) L 05/27/20 07:00 Prealbumin 12.0 mg/dL (17.6-36.0) L 04/16/20 08:30 Triglycerides 249 mg/dL (<150) H 05/10/20 06:25 EGFR Cancelled 05/12/20 04:35 Urine Color RUBIN 03/30/20 14:38 Urine Appearance CLOUDY 03/30/20 14:38 Urine pH 5.0 (5.0-9.0) 03/30/20 14:38 Ur Specific [place] 1.033 03/30/20 14:38 Urine Protein 100 mg/dL (NEGATIVE) H 03/30/20 14:38 Urine Glucose (UA) NEGATIVE mg/dL (NEGATIVE) 03/30/20 14:38 Urine Ketones 20 mg/dL (NEGATIVE) H 03/30/20 14:38 Urine Blood LARGE (NEGATIVE) H 03/30/20 14:38 Urine Nitrite NEGATIVE (NEGATIVE) 03/30/20 14:38 Urine Bilirubin NEGATIVE (NEGATIVE) 03/30/20 14:38 Urine Urobilinogen 4.0 mg/dL (<2.0) H 03/30/20 14:38 Ur Leukocyte Esterase TRACE (NEGATIVE) H 03/30/20 14:38 Urine WBC (Auto) 34 /HPF 03/30/20 14:38 Urine RBC (Auto) >182 /HPF 03/30/20 14:38 Squamous Epi Cells Auto 2 /HPF 03/30/20 14:38 Urine Mucus (Auto) MANY /LPF 03/30/20 14:38 Urine Ascorbic Acid NEGATIVE (NEGATIVE) 03/30/20 14:38 Urine HCG, Qual NEGATIVE (NEGATIVE) 04/09/20 15:10 Stl C. Difficile GDH Ag NEGATIVE (NEGATIVE) 05/26/20 09:05 Stl C.difficile Tox A&B NEGATIVE (NEGATIVE) 05/26/20 09:05 Time Trough Drawn 1835 04/30/20 18:35 Vancomycin Trough 35.0 ug/mL (5.0-20.0) H 04/30/20 18:35 COVID-19 Source See comment 04/23/20 13:15 COVID-19 (HUGH) Not Detected (Not Detect) 04/23/20 13:15 Influenza A (RT-PCR) NEGATIVE (NEGATIVE) 05/07/20 14:05 Influenza B (RT-PCR) NEGATIVE (NEGATIVE) 05/07/20 14:05 RSV (RT-PCR) NEGATIVE (NEGATIVE) 05/07/20 14:05 SARS-CoV-2 Rap RNA(RT-PCR) NEGATIVE (NEGATIVE) 05/07/20 14:05 Slides for Path Review Cancelled 05/27/20 07:00 Blood Type O POSITIVE 05/27/20 10:36 Antibody Screen NEGATIVE 05/27/20 10:36 Crossmatch See Detail 05/27/20 10:36 03/21/20 04/11/20 04/14/20 21:58 03:05 01:59 Troponin I < 0.012 NT-Pro-B Natriuret Pep 192 H 184 H 04/24/20 04/25/20 04/26/20 14:18 09:01 03:53 Troponin I 0.012 NT-Pro-B Natriuret Pep 7620 H 5880 H Impressions: Chest X-Ray 03/21/20 21:14 IMPRESSION: No significant change in hazy bilateral infiltrates. copyright 2010 [employer]- All Rights Reserved Chest X-Ray 03/22/20 00:00 IMPRESSION: Worsening patchy ill-defined opacities in both lungs, consistent with infectious/ inflammatory process. Chest X-Ray 03/31/20 00:00 IMPRESSION: 1. LIFE LINES DESCRIBED. SATISFACTORY POSITION. NO PNEUMOTHORAX. 2. CARDIOMEGALY AND DIFFUSE BILATERAL AIRSPACE DISEASE. Chest X-Ray 04/01/20 10:00 IMPRESSION: Slight improved aeration, overall similar appearance. Chest X-Ray 04/03/20 17:00 IMPRESSION: No change in diffuse bilateral alveolar and interstitial infiltrates Stable cardiomegaly Tubes and lines in good positioning KUB X-Ray 04/09/20 00:00 IMPRESSION: Essentially gasless abdomen. This may be secondary to large volume ascites. This can be secondary to fluid filled small bowel and small-bowel obstruction. Clinical correlation is needed. Gasless abdomen can also be seen with gastroenteritis Abdomen Ultrasound 04/10/20 00:00 IMPRESSION: NO EVIDENCE FOR ASCITES. Chest X-Ray 04/10/20 05:00 IMPRESSION: 1. No significant interval changes since the prior study dated 04/03/2020. 2. Support tubes and lines are unchanged. KUB X-Ray 04/11/20 00:00 IMPRESSION: 1. Similar appearance of the abdomen with a relative paucity of bowel gas. 2. The tip of the enteric tube projects within the gastric lumen. Chest X-Ray 04/11/20 05:00 IMPRESSION: Tubes and lines as above. Otherwise unchanged radiographic appearance of the chest. Chest X-Ray 04/12/20 05:00 IMPRESSION: 1. Stable pulmonary exam. 2. Stable lines and tubes. Chest X-Ray 04/14/20 05:00 IMPRESSION: Slight improvement. No pneumothorax. Chest X-Ray 04/16/20 05:00 IMPRESSION: Tubes and lines as above. Otherwise unchanged radiographic appearance of the chest. Chest X-Ray 04/17/20 00:00 IMPRESSION: 1. Mild interval increase in diffuse bilateral interstitial and airspace opacities. Chest X-Ray 04/18/20 05:00 IMPRESSION: Improved but persistent diffuse bilateral interstitial opacities. Stable support lines and tubes as above. Chest X-Ray 04/23/20 00:00 IMPRESSION: Tubes and lines as above. Otherwise unchanged radiographic appearance of the chest. Chest X-Ray 04/23/20 05:00 IMPRESSION: Tubes and lines as above. Otherwise unchanged radiographic appearance of the chest. Chest X-Ray 04/24/20 05:00 IMPRESSION: No change from yesterday Chest X-Ray 04/24/20 12:05 IMPRESSION: No significant change. No pneumothorax. Chest X-Ray 04/29/20 00:00 IMPRESSION: No significant change. KUB X-Ray 04/29/20 00:00 IMPRESSION: NG tube is present with side port and tip overlying the body of the stomach. Chest X-Ray 04/29/20 05:00 IMPRESSION: NO SIGNIFICANT CHANGE IN APPEARANCE OF THE CHEST. Chest X-Ray 04/29/20 16:06 IMPRESSION: Cannot definitively exclude a tiny left apical pneumothorax. Appearance of the chest is otherwise not significantly changed. Chest X-Ray 05/04/20 00:00 IMPRESSION: Improved aeration in the left lung. Mild right basilar atelectasis/ consolidation. Chest X-Ray 05/08/20 00:00 IMPRESSION: Enlarged cardiac silhouette with diffuse bilateral interstitial opacities, likely edema. Atypical infection is not excluded. Tracheostomy tube tip overlies midthoracic trachea. Additional lines and tubes as above. Chest X-Ray 05/10/20 00:00 IMPRESSION: No significant change in the appearance of the chest. Chest X-Ray 05/10/20 00:00 IMPRESSION: Right IJ line tip at the cavoatrial junction. No pneumothorax. Chest X-Ray 05/15/20 05:00 IMPRESSION: NO SIGNIFICANT INTERVAL CHANGE. Chest X-Ray 05/16/20 13:33 IMPRESSION: No significant interval change. Bilateral ill-defined infiltrates. Chest X-Ray 05/23/20 04:00 IMPRESSION: STABLE APPEARANCE OF THE CHEST. SUPPORT DEVICES UNCHANGED. Chest X-Ray 05/26/20 04:00 IMPRESSION: Persistent mild alveolar and interstitial infiltrates unchanged. Tubes and lines in good positioning Chest X-Ray 05/26/20 16:32 IMPRESSION: No significant change. Plan Plan of Treatment: Critical Time: 45 Level of Care: ICU Stroke Is this a Stroke Patient?: No Acute Heart Failure Is this a Heart Failure Patient?: No
[2020-05-28] MEDS: PIPERACILLIN SODIUM/TAZOBACTAM 3.375 GM in NORMAL SALINE 100 ML IV SCH (03:48)
[2020-05-28] MEDS: LEVETIRACETAM 1000 MG/NACL-ISO 1,000 MG/100 ML RTUPB IV SCH (03:49)
[2020-05-28] MEDS: CARVEDILOL 3.125 MG TABLET NG SCH (03:49)
--- NOTE | 2020-05-28 05:55 | Progress Note ---
Provider Note Provider Note: I called patients sister at 2200 and informed her of patients decline in condition and she states she raimundo come to hospital. Upon arival I explained that despite maxium vent support patients continues to have low oxygen levels and raimundo most likely not survive the night. The discussion was made regarding code status and Anna villar decided to make the patient a DNR. The conversation was witness by Neelam NOVA.
[2020-05-28 13:55] LABS: PATH REVIEW PATHOLOGIST REVIEWED
== END 2020-05-28 00:36 | DRG 4 ==
LOC: ER 20:22 → EH 23:56 → 3N 03-22 01:43 → ICU 03-31 08:09
PROVIDERS: ADMIT Internal Medicine; ATTEND Internal Medicine
PROC: XW033E5 Introduction of Remdesivir Anti-infective into Peripheral Vein, Percutaneous Approach, New Technology Group 5 (ICD-10-PCS; 2020-03-22)
PROC: 30233N1 Transfusion of Nonautologous Red Blood Cells into Peripheral Vein, Percutaneous Approach (ICD-10-PCS; 2020-03-26)
PROC: 5A1955Z Respiratory Ventilation, Greater than 96 Consecutive Hours (ICD-10-PCS; 2020-03-31)
PROC: 0BH17EZ Insertion of Endotracheal Airway into Trachea, Via Natural or Artificial Opening (ICD-10-PCS; 2020-03-31)
PROC: 02HV33Z Insertion of Infusion Device into Superior Vena Cava, Percutaneous Approach (ICD-10-PCS; 2020-03-31)
PROC: B24BZZZ Ultrasonography of Heart with Aorta (ICD-10-PCS; 2020-04-24)
PROC: 0B110F4 Bypass Trachea to Cutaneous with Tracheostomy Device, Open Approach (ICD-10-PCS; principal; 2020-05-08)
PROC: 02HV33Z Insertion of Infusion Device into Superior Vena Cava, Percutaneous Approach (ICD-10-PCS; 2020-05-10)
PROC: 5A12012 Performance of Cardiac Output, Single, Manual (ICD-10-PCS; 2020-05-26)
DX: U07.1 COVID-19 (principal); J12.82 Pneumonia due to coronavirus disease 2019; J96.01 Acute respiratory failure with hypoxia; J96.02 Acute respiratory failure with hypercapnia; J15.211 Pneumonia due to Methicillin susceptible Staphylococcus aureus; K72.00 Acute and subacute hepatic failure without coma; G93.1 Anoxic brain damage, not elsewhere classified; N17.9 Acute kidney failure, unspecified; R78.81 Bacteremia; Z68.43 Body mass index [BMI] 50.0-59.9, adult; Z99.11 Dependence on respirator [ventilator] status; F17.200 Nicotine dependence, unspecified, uncomplicated; F31.9 Bipolar disorder, unspecified; I46.9 Cardiac arrest, cause unspecified; R57.8 Other shock; B95.61 Methicillin susceptible Staphylococcus aureus infection as the cause of diseases classified elsewhere; D72.829 Elevated white blood cell count, unspecified; E66.01 Morbid (severe) obesity due to excess calories; E86.0 Dehydration; F25.9 Schizoaffective disorder, unspecified; I10 Essential (primary) hypertension; D64.9 Anemia, unspecified; K59.01 Slow transit constipation; I95.9 Hypotension, unspecified; T38.0X5A Adverse effect of glucocorticoids and synthetic analogues, initial encounter; B96.89 Other specified bacterial agents as the cause of diseases classified elsewhere; E09.65 Drug or chemical induced diabetes mellitus with hyperglycemia; Z66 Do not resuscitate; Z79.899 Other long term (current) drug therapy; Z78.1 Physical restraint status; Z82.49 Family history of ischemic heart disease and other diseases of the circulatory system; Z83.438 Family history of other disorder of lipoprotein metabolism and other lipidemia
CPT/HCPCS: 00320; 31500; 36415; 36430; 36556; 36600; 71045; 71275; 74018; 76705; 80048; 80053; 80076; 80202; 81001; 81025; 82550; 82553; 82565; 82728; 82803; 82962; 83036; 83605; 83615; 83735; 83880; 84100; 84132; 84134; 84145; 84478; 84484; 84703; 85025; 85027; 85379; 85610; 85730; 86140; 86850; 86900; 86901; 86920; 87040; 87070; 87077; 87086; 87101; 87150; 87186; 87205; 87324; 87449; 87635; 92950; 93005; 93010; 93306; 94002; 94003; 94640; 94660; 99239; 99285; 99291; 99292; 0241U; C9113; C9803; J0171; J0330; J0360; J0456; J0610; J0692; J0696; J1100; J1170; J1200; J1250; J1265; J1450; J1610; J1642; J1644; J1815; J1940; J1953; J2020; J2060; J2185; J2250; J2260; J2270; J2310; J2405; J2543; J2704; J2765; J2920; J2997; J3010; J3260; J3370; J3475; J3480; J3486; J3490; J7030; J7040; J7050; J7060; J7120; J7613; J7614; P9016; P9041; P9047; S0028; S0119